=== PATIENT | female | born 1950 | race Caucasian/White ===

== ENCOUNTER 2017-03-30 10:04 | Emergency (ER) | payer MEDICARE, OTHER ==
[~2017-03-30] VITALS: Ht 157.5 cm; Wt 136.1 kg
[~2017-03-30 10:04] MED LIST: ALPR0.5T6 PO; ASCO-5 PO; BUDE10.2 IH; CALC-77 PO; CALC600T4 PO; CITA40TA5 PO; CYAN250T5 PO; CYCL10TA2 PO; DOCU100C28 PO; ERGO500027 PO; FURO-68 PO; FURO40TA4 PO; GABA800T2 PO; HYDR-2762 PO; HYDR1TAB26 PO; IPRA3AMP IH; LANS30CA PO; LEVO200T5 PO; LEVO25TA4 PO; LEVO500T59 PO; LEVO500T8 PO; LOSA100T6 PO; METF500T4 PO; METO100T11 PO; MULT-96 PO; OMEG1CAP6 PO; POTA20TA12 PO; POTA20TA4 PO; PRAM0.5T5 PO; PROAIR HFA8.5 GM IH; PROM118S2 PO; TEMA30CA PO; ZAFI20TA12 PO; ZEBUTAL; [UNRECOGNIZED DRUG - OTHER] PO; brintellix
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
[2017-03-30] MEDS ORDERED: HYDROcodone/APAP 5/325MG 1 TAB TABLET PO ONE (11:15)
[2017-03-30 11:40] VITALS: BP 130/61
--- NOTE | 2017-03-30 11:52 | RAD ---
Examination: 2 views of the right humerus and 2 views of the right clavicle History: History of trip over dog last night, pain in the right humerus. Comparison: None available Findings: The humerus head is within the glenoid. There is no evidence of fracture of the right clavicle. Mild degenerative changes identified in the acromioclavicular joint and glenohumeral joint. There is lateral bowing of the midshaft of the right humerus with probable old fracture. Impression: 1. Lateral bowing of the midshaft of the humerus probable old fracture.
== END 2017-03-30 12:18 | disposition home or self-care (01) ==
LOC: ER 10:04
DX: M79.621 Pain in right upper arm (principal); M25.511 Pain in right shoulder; E03.9 Hypothyroidism, unspecified; F41.9 Anxiety disorder, unspecified; I10 Essential (primary) hypertension; J45.909 Unspecified asthma, uncomplicated; Z90.710 Acquired absence of both cervix and uterus; Z98.890 Other specified postprocedural states; Z98.51 Tubal ligation status; G56.01 Carpal tunnel syndrome, right upper limb; Z88.1 Allergy status to other antibiotic agents; Z88.6 Allergy status to analgesic agent; Z91.041 Radiographic dye allergy status; W18.39XA Other fall on same level, initial encounter; Y93.89 Activity, other specified; Y99.8 Other external cause status; Y92.89 Other specified places as the place of occurrence of the external cause
CPT/HCPCS: 73000; 73060; 99284

== ENCOUNTER 2017-08-18 01:35 | Emergency (ER) | payer MEDICARE ==
[~2017-08-18] VITALS: Ht 154.9 cm; Wt 121.1 kg
[~2017-08-18 01:35] MED LIST changes: +METO-247 PO; -METO100T11 PO
--- NOTE | 2017-08-18 02:01 | PHYS DOC ---
Past Medical History Past Medical History: Anxiety, Asthma, Hypertension, Hypothyroid, UTI, Other Additional Past Medical Histor: WEARS CPAP @ NOC Past Surgical History: , Hysterectomy, Tubal ligation Additional Past Surgical Histo: wrist, knee scope, rt carpqal tunnel Alcohol Use: None Drug Use: None Adult General Chief Complaint Chief Complaint: BACK PAIN - NO INJURY HPI HPI Patient is a 67 year old female who presents with right-sided back pain and right knee pain. Her backs been hurting her for the last week. Today she took a [place]. She denies any fevers chills nausea or vomiting, or dysuria. She states she never has any dysuria and diagnosed with bladder infection before. The daughter's concern because his low confused today and he could be secondary to taking your [place] but one make sure she didn't have an infection because last time she get really sick with infection. She also complains about right knee pain and feels like her calf is a little more swollen than normal. She states the pain in the posterior aspect of her knee. She denies any fevers, shortness of breath, chest pain. Review of Systems Review of Systems Constitutional: Denies fever or chills [] Eyes: Denies change in visual acuity, redness, or eye pain [] HENT: Denies nasal congestion or sore throat [] Respiratory: Denies cough or shortness of breath [] Cardiovascular: No additional information not addressed in HPI [] GI: Denies abdominal pain, nausea, vomiting, bloody stools or diarrhea [] : Denies dysuria or hematuria [] Musculoskeletal: Positive for right-sided flank pain and right knee pain Integument: Denies rash or skin lesions [] Neurologic: Denies headache, focal weakness or sensory changes [] Endocrine: Denies polyuria or polydipsia [] All other systems were reviewed and found to be within normal limits, except as documented in this note. Current Medications Current Medications Current Medications Medications (Trade) Dose Ordered Sig/Doris Start Time Stop Time Status Last Admin Dose Admin Levofloxacin (Levaquin) 500 mg 1X ONCE 08/18/17 04:00 08/18/17 04:01 08/18/17 03:37 500 MG Morphine Sulfate 2 mg 1X ONCE 08/18/17 03:30 08/18/17 03:31 DC 08/18/17 03:38 2 MG Allergies Allergies Allergies Coded Allergies Type Severity Reaction Last Updated Verified amoxicillin trihydrate Allergy Intermediate 10/15/14 Yes celecoxib Allergy Intermediate 10/15/14 Yes potassium clavulanate Allergy Intermediate 10/15/14 Yes I S O L A T I O N *CONTACT* Allergy Unknown 02/11/15 Yes Physical Exam Physical Exam Constitutional: Well developed, well nourished, no acute distress, non-toxic appearance. [] HENT: Normocephalic, atraumatic, bilateral external ears normal, oropharynx moist, no oral exudates, nose normal. [] Eyes: PERRLA, EOMI, conjunctiva normal, no discharge. [] Neck: Normal range of motion, no tenderness, supple, no stridor. [] Cardiovascular:Heart rate regular rhythm, no murmur [] Lungs & Thorax: Bilateral breath sounds clear to auscultation [] Abdomen: Bowel sounds normal, soft, no tenderness, no masses, no pulsatile masses. [] Skin: Warm, dry, no erythema, no rash. [] Back: No midline tenderness, tender palpation over the right flank that seems more muscle spasm in nature, no CVA tenderness. [] Extremities: Mild tenderness palpation the posterior knee, no erythema, no fluctuance noted, no cyanosis, no clubbing, ROM intact, no edema. [] Neurologic: Alert and oriented X 3, normal motor function, normal sensory function, no focal deficits noted. [] Psychologic: Affect normal, judgement normal, mood normal. [] Current Patient Data Vital Signs Vital Signs Date Time Temp Pulse Resp B/P (MAP) Pulse Ox O2 Delivery O2 Flow Rate FiO2 08/18/17 01:40 99.3 95 22 113/53 (73) 95 Room Air 99.3 Lab Values Laboratory Tests Test 08/18/17 01:40 08/18/17 02:15 Urine Collection Type Unknown Urine Color Yellow Urine Clarity Clear Urine pH 5.5 Urine Specific [place] 1.015 Urine Protein Negative mg/dL (NEG-TRACE) Urine Glucose (UA) Negative mg/dL (NEG) Urine Ketones (Stick) Negative mg/dL (NEG) Urine Blood Negative (NEG) Urine Nitrite Negative (NEG) Urine Bilirubin Negative (NEG) Urine Urobilinogen Dipstick 0.2 mg/dL (0.2 mg/dL) Urine Leukocyte Esterase Moderate (NEG) Urine RBC 6-10 /HPF (0-2) Urine WBC 20-40 /HPF (0-4) Urine Squamous Epithelial Cells Few /LPF Urine Bacteria Many /HPF (0-FEW) Urine Hyaline Casts Many /HPF White Blood Count 11.8 x10^3/uL (4.0-11.0) H Red Blood Count 3.27 x10^6/uL (3.50-5.40) L Hemoglobin 9.9 g/dL (12.0-15.5) L Hematocrit 30.3 % (36.0-47.0) L Mean Corpuscular Volume 93 fL (79-100) Mean Corpuscular Hemoglobin 30 pg (25-35) Mean Corpuscular Hemoglobin Concent 33 g/dL (31-37) Red Cell Distribution Width 14.9 % (11.5-14.5) H Platelet Count 190 x10^3/uL (140-400) Neutrophils (%) (Auto) 78 % (31-73) H Lymphocytes (%) (Auto) 15 % (24-48) L Monocytes (%) (Auto) 5 % (0-9) Eosinophils (%) (Auto) 2 % (0-3) Basophils (%) (Auto) 0 % (0-3) Neutrophils # (Auto) 9.2 x10^3uL (1.8-7.7) H Lymphocytes # (Auto) 1.8 x10^3/uL (1.0-4.8) Monocytes # (Auto) 0.6 x10^3/uL (0.0-1.1) Eosinophils # (Auto) 0.2 x10^3/uL (0.0-0.7) Basophils # (Auto) 0.0 x10^3/uL (0.0-0.2) Sodium Level 138 mmol/L (136-145) Potassium Level 4.6 mmol/L (3.5-5.1) Chloride Level 103 mmol/L (98-107) Carbon Dioxide Level 28 mmol/L (21-32) Anion Gap 7 (6-14) Blood Urea Nitrogen 30 mg/dL (7-20) H Creatinine 1.5 mg/dL (0.6-1.0) H Estimated GFR (Cockcroft-Gault) 34.9 BUN/Creatinine Ratio 20 (6-20) Glucose Level 109 mg/dL (70-99) H Calcium Level 7.8 mg/dL (8.5-10.1) L Total Bilirubin 0.4 mg/dL (0.2-1.0) Aspartate Amino Transferase (AST) 26 U/L (15-37) Alanine Aminotransferase (ALT) 23 U/L (14-59) Alkaline Phosphatase 187 U/L (46-116) H Total Protein 6.9 g/dL (6.4-8.2) Albumin 3.1 g/dL (3.4-5.0) L Albumin/Globulin Ratio 0.8 (1.0-1.7) L Laboratory Tests 08/18/17 02:15 Laboratory Tests 08/18/17 02:15 EKG EKG [] Radiology/Procedures Radiology/Procedures [facility] [address] [place] [address] IMAGING REPORT Signed PATIENT: PILLO JEROME ACCOUNT: [id number] : 1950 LOCATION: ER AGE: 67 SEX: F EXAM STATUS: REG ER ORD. PHYSICIAN: MARJ HERNANDEZ MD REASON: swelling PROCEDURE: VENOUS LOWER EXTREMITY RIGHT INDICATION: Right leg swelling and pain COMPARISON: None. TECHNIQUE: Grayscale, color and doppler ultrasound images were obtained of the right lower extremity venous vasculature. RIGHT: No thrombus identified in the common femoral vein, femoral vein, popliteal vein. Calf veins are difficult to visualize secondary to overlying soft tissue structures. 44 x 21 mm fluid collection in popliteal fossa. IMPRESSION: 1. No thrombus identified in deep venous system of right lower extremity. 2. Suspected fluid collection in popliteal fossa. Most common cause would be a Aquino's cyst. Would correlate with symptoms in the region to ensure that there is not a less common causes such as fluid collection from infection or hematoma. Electronically signed by: Luis Hastings MD (08/18/2017 3:20 AM) [facility] DICTATED and SIGNED BY: LUIS HASTINGS MD DATE: 08/18/17 0319 CC: MARJ HERNANDEZ MD; EVERTON BLAKE MD ~ Impressions: Urinary tract infection Right knee pain Course & Med Decision Making Course & Med Decision Making Pertinent Labs and Imaging studies reviewed. (See chart for details) UA shows a UTI. Since she does have right-sided flank pain we'll treat for possible with 7 days of Levaquin. She has an allergy to amoxicillin. Ultrasound of right lower extremity does not show a DVT what looks like she might have a Aquino's cyst. She'll be discharged home with tramadol for discomfort. She is instructed to follow-up with her primary care physician within the next 2-3 days. Return precautions given for fevers, confusion, uncontrolled nausea vomiting or other concerns. Family is agreeable plan she's been discharged stable condition at this time. Dragon Disclaimer Dragon Disclaimer This electronic medical record was generated, in whole or in part, using a voice recognition dictation system. Departure Departure Impression: Primary Impression: Urinary tract infection Disposition: HOME, SELF-CARE Condition: STABLE Referrals: EVERTON BLAKE MD (PCP) Patient Instructions: Urinary Tract Infection Additional Instructions: You have a urinary tract infection and will need taken an antibiotic for the next 7 days. You will also need drink a few extra glasses of water over the next several days. The x-ray of your right knee shows arthritis and the ultrasound does not show any blood clots. You also has a fluid collection behind your right knee which could be a Aquino's cyst. You will need to follow- up with your primary care physician. You can take tramadol, which is a pain medicine for the next few days until your symptoms improve. Return the ER if you become confused, develop high fevers, uncontrolled nausea vomiting or other concerns. Scripts Tramadol Hcl (TRAMADOL HCL) 50 Mg Tablet 1 TAB PO PRN Q6HRS Y for PAIN, #15 TAB Prov: MARJ HERNANDEZ MD 08/18/17 Levofloxacin (LEVAQUIN) 500 Mg Tablet 500 TAB PO DAILY, #7 TAB Prov: MARJ HERNANDEZ MD 08/18/17 MARJ HERNANDEZ MD Aug 18, 2017 02:01
[2017-08-18 02:35] LABS: BILIRUBIN,URINE NEGATIVE (NEG); GLUCOSE,URINE NEGATIVE (NEG); NITRITE,URINE NEGATIVE (NEG); PH,URINE 5.5; PROTEIN,URINE NEGATIVE (NEG-TRACE); UROBILINOGEN,URINE 0.2 mg/dL (0.2 mg/dL)
[2017-08-18 02:36] LABS: BASO % 0 % (0-3); EOS % 2 % (0-3); HEMATOCRIT 30.3 % (36.0-47.0); HEMOGLOBIN 9.9 g/dL (12.0-15.5); LYMPH # 1.8 x10^3/uL (1.0-4.8); LYMPH % 15 % (24-48); MEAN CORPUSCULAR HEMOGLOBIN 30 pg (25-35); MEAN CORPUSCULAR HGB CONC 33 g/dL (31-37); MEAN CORPUSCULAR VOLUME 93 fL (79-100); MONO % 5 % (0-9); NEUT % 78 % (31-73); PLATELET COUNT 190 x10^3/uL (140-400); RED BLOOD COUNT 3.27 x10^6/uL (3.50-5.40); RED CELL DISTRIBUTION WIDTH 14.9 % (11.5-14.5); WHITE BLOOD COUNT 11.8 x10^3/uL (4.0-11.0)
[2017-08-18 02:44] LABS: CALCIUM 7.8 mg/dL (8.5-10.1); CREATININE 1.5 mg/dL (0.6-1.0); GFR 34.9; POTASSIUM 4.6 mmol/L (3.5-5.1)
[2017-08-18 02:48] LABS: BACTERIA,URINE MANY /HPF (0-FEW); SQUAMOUS EPITHELIAL CELL,UR FEW /LPF; WBC,URINE 20-40 /HPF (0-4)
[2017-08-18 02:51] LABS: ALBUMIN 3.1 g/dL (3.4-5.0); ALBUMIN/GLOBULIN RATIO 0.8 (1.0-1.7); TOTAL BILIRUBIN 0.4 mg/dL (0.2-1.0); TOTAL PROTEIN 6.9 g/dL (6.4-8.2)
--- NOTE | 2017-08-18 03:24 | RAD ---
INDICATION: Right leg swelling and pain COMPARISON: None. TECHNIQUE: Grayscale, color and doppler ultrasound images were obtained of the right lower extremity venous vasculature. RIGHT: No thrombus identified in the common femoral vein, femoral vein, popliteal vein. Calf veins are difficult to visualize secondary to overlying soft tissue structures. 44 x 21 mm fluid collection in popliteal fossa. IMPRESSION: 1. No thrombus identified in deep venous system of right lower extremity. 2. Suspected fluid collection in popliteal fossa. Most common cause would be a Aquino's cyst. Would correlate with symptoms in the region to ensure that there is not a less common causes such as fluid collection from infection or hematoma. Electronically signed by: Cedric Bell MD (08/18/2017 3:20 AM) [facility]
[2017-08-18] MEDS ORDERED: MORPHINE SULFATE 2 MG/ML DISP.SYRIN. IV ONE (03:30)
[2017-08-18 03:36] VITALS: BP 103/45
[2017-08-18] MEDS ORDERED: TRAM50TA PO (03:39)
[2017-08-18] MEDS ORDERED: LEVO500T59 PO (03:39)
--- NOTE | 2017-08-18 07:30 | RAD ---
KNEE RIGHT 3V History:Knee pain Comparison: None Findings:3 views the right knee are submitted. There is tricompartmental osteoarthritic change, severe narrowing of the lateral compartment joint space and also patellofemoral articulation. There is is chondrocalcinosis. No acute fracture is identified. There is some vertically oriented lucency of the medial femoral condyle which could be due to sequela of old trauma. There is probable small moderate suprapatellar joint effusion. Impression: 1.There is tricompartmental osteoarthritic change. There is suprapatellar joint effusion. There is chondrocalcinosis.
--- NOTE | 2017-08-21 16:03 | VNOTE ---
CALL BACK NOTE CALL BACK Microbiology 08/18/17 Urine Culture - Final, Complete 08/18/17 Urine Culture Result 1 (TAMIE) - Final, Complete 08/18/17 Antimicrobic Susceptibility - Final, Complete Urine culture reveals since Levaquin. Patient was notified on August 21. She is requested her prescription for Macrobid 100 mg one by mouth twice a day #20 be called to [facility] at [facility]. Patient has agreed to pick this prescription up. OLIVER CORONADO APRN Aug 21, 2017 16:03
== END 2017-08-18 03:55 | disposition home or self-care (01) ==
LOC: ER 01:35
DX: N39.0 Urinary tract infection, site not specified (principal); M25.561 Pain in right knee; E03.9 Hypothyroidism, unspecified; F41.9 Anxiety disorder, unspecified; I10 Essential (primary) hypertension; J45.909 Unspecified asthma, uncomplicated; Z98.890 Other specified postprocedural states; Z90.710 Acquired absence of both cervix and uterus; Z98.51 Tubal ligation status; Z88.8 Allergy status to other drugs, medicaments and biological substances; Z88.1 Allergy status to other antibiotic agents; Z91.041 Radiographic dye allergy status
CPT/HCPCS: 36415; 73562; 80053; 81001; 85025; 87086; 87186; 93971; 96372; 99285; J2270

== ENCOUNTER 2018-01-02 01:25 | Emergency (ER) | payer MEDICARE | END 2018-01-02 03:53 | disposition home or self-care (01) | LOC: ER 01:25 | DX: M71.21 Synovial cyst of popliteal space [Baker], right knee (principal); J45.909 Unspecified asthma, uncomplicated; I10 Essential (primary) hypertension; E03.9 Hypothyroidism, unspecified; Z90.710 Acquired absence of both cervix and uterus; Z98.51 Tubal ligation status; Z88.1 Allergy status to other antibiotic agents; Z88.8 Allergy status to other drugs, medicaments and biological substances; Z91.041 Radiographic dye allergy status | CPT/HCPCS: 73562; 93971; 99284-25 ==

== ENCOUNTER 2018-03-20 09:00 | Inpatient (IN) | payer MEDICARE ==
[2018-03-20] MEDS: IPRATRPIUM/ALBUTEROL 0.5/2.5MG 3 ML NEBU. NEB ×3 (09:31→19:57)
[2018-03-20 10:23] LABS: ADD MAN DIFF? NO
[2018-03-20 10:26] LABS: BASO # 0.1 x10^3/uL (0.0-0.2); BASO % 1 % (0-3); EOS # 0.1 x10^3/uL (0.0-0.7); EOS % 1 % (0-3); HEMATOCRIT 31.6 % (36.0-47.0); HEMOGLOBIN 10.4 g/dL (12.0-15.5); LYMPH # 1.9 x10^3/uL (1.0-4.8); LYMPH % 19 % (24-48); MEAN CORPUSCULAR HEMOGLOBIN 30 pg (25-35); MEAN CORPUSCULAR HGB CONC 33 g/dL (31-37); MEAN CORPUSCULAR VOLUME 92 fL (79-100); MONO # 0.7 x10^3/uL (0.0-1.1); MONO % 7 % (0-9); NEUT # 7.2 x10^3uL (1.8-7.7); NEUT % 72 % (31-73); PLATELET COUNT 187 x10^3/uL (140-400); RED BLOOD COUNT 3.44 x10^6/uL (3.50-5.40); RED CELL DISTRIBUTION WIDTH 14.3 % (11.5-14.5)
[2018-03-20 10:27] LABS: BILIRUBIN,URINE NEGATIVE (NEG); CLARITY,URINE CLEAR; COLOR,URINE YELLOW; GLUCOSE,URINE NEGATIVE (NEG); NITRITE,URINE POSITIVE (NEG); PH,URINE 5.5; PROTEIN,URINE NEGATIVE (NEG-TRACE); UROBILINOGEN,URINE 0.2 mg/dL (0.2 mg/dL)
[2018-03-20 10:32] LABS: BACTERIA,URINE MANY /HPF (0-FEW); SQUAMOUS EPITHELIAL CELL,UR MANY /LPF; WBC,URINE >40 /HPF (0-4)
[2018-03-20 10:33] LABS: RBC,URINE OCC /HPF (0-2)
[2018-03-20 10:34] LABS: INR 1.2 (0.8-1.1); PROTHROMBIN TIME PATIENT 14.6 SEC (11.7-14.0)
[2018-03-20] MEDS: fentaNYL PF VIAL 100 MCG/2 ML VIAL IV (10:34)
[2018-03-20] MEDS: methylPREDNISolone SOD SUCC PF 125 MG/2 ML VIAL. IV ×2 (10:35→20:43)
[2018-03-20] MEDS: ONDANSETRON PF 4 MG/2 ML VIAL. IV (10:35)
[2018-03-20 10:36] LABS: ANION GAP 11 (6-14); BLOOD UREA NITROGEN 29 mg/dL (7-20); BUN/CREATININE RATIO 22 (6-20); CALCIUM 8.3 mg/dL (8.5-10.1); CARBON DIOXIDE 27 mmol/L (21-32); CHLORIDE 102 mmol/L (98-107); CREATININE 1.3 mg/dL (0.6-1.0); GFR 41.1; GLUCOSE 116 mg/dL (70-99); POTASSIUM 3.7 mmol/L (3.5-5.1); SODIUM 140 mmol/L (136-145)
[2018-03-20 10:42] LABS: ALBUMIN 2.7 g/dL (3.4-5.0); ALBUMIN/GLOBULIN RATIO 0.6 (1.0-1.7); ALK PHOS 229 U/L (46-116); ALT (SGPT) 25 U/L (14-59); AST (SGOT) 28 U/L (15-37); TOTAL BILIRUBIN 0.7 mg/dL (0.2-1.0); TOTAL PROTEIN 7.6 g/dL (6.4-8.2)
[2018-03-20 10:55] LABS: CREATINE KINASE 25 U/L (26-192)
[2018-03-20 10:55] LABS: NT-PRO BNP 291 pg/mL (0-124)
[2018-03-20 10:56] LABS: CKMB MASS < 0.5 ng/mL (0.0-3.6)
[2018-03-20] MEDS ORDERED: fentaNYL PF VIAL 100 MCG/2 ML VIAL IV (11:15)
[2018-03-20] MEDS ORDERED: ACETAMINOPHEN 325 MG TABLET. PO (11:15)
[2018-03-20] MEDS ORDERED: levETIRAcetam 500 MG TABLET PO (11:15)
[2018-03-20] MEDS ORDERED: ONDANSETRON PF 4 MG/2 ML VIAL. IV (11:15)
[2018-03-20] MEDS ORDERED: ALBUTEROL SULFATE 2.5 MG/3 ML NEBU. NEB (16:15)
[2018-03-20] MEDS ORDERED: ALBUTEROL SULFATE IH (17:15)
[2018-03-20 18:16] LABS: TROPONINI < 0.017 ng/mL (0.000-0.055)
[2018-03-20] MEDS: ERGOCALCIFEROL (VITAMIN D2) 50,000 UNIT CAPSULE. PO (18:16)
[2018-03-20] MEDS: OMEGA-3 FATTY ACIDS/FISH OIL 1,000 MG CAPSULE. PO (18:16)
[2018-03-20] MEDS: FUROSEMIDE 40 MG TABLET. PO (18:16)
[2018-03-20] MEDS: METOPROLOL SUCC 24HR ER 100 MG TAB.ER.24H. PO (18:17)
[2018-03-20] MEDS: HYDROcodone/APAP 7.5/325MG 1 TAB TABLET PO (18:17)
[2018-03-20] MEDS ORDERED: IPRATRPIUM/ALBUTEROL 0.5/2.5MG 3 ML NEBU. IH (20:00)
[2018-03-20] MEDS: BUDESONIDE 0.5 MG/2 ML NEBU. NEB (20:00)
[2018-03-20] MEDS: CYANOCOBALAMIN (VITAMIN B-12) 1,000 MCG TABLET. PO (20:38)
[2018-03-20] MEDS: PRAMIPEXOLE 1 MG TABLET. PO (20:41)
[2018-03-20] MEDS: GABAPENTIN 400 MG CAPSULE. PO (20:41)
[2018-03-20] MEDS: ENOXAPARIN 40 MG/0.4 ML SYRINGE. SQ (20:42)
[2018-03-20] MEDS ORDERED: NON FORMULARY ITEM (Budesonide/Formoterol Fumarate (Symbicort 160-4.5 Mcg Inhaler) 2 PUFF) IH (21:00)
[2018-03-20] MEDS: ALPRAZolam 0.5 MG TABLET PO (23:49)
[2018-03-21 04:21] LABS: BASO % 0 % (0-3); EOS % 0 % (0-3); HEMATOCRIT 29.3 % (36.0-47.0); HEMOGLOBIN 9.6 g/dL (12.0-15.5); LYMPH # 0.8 x10^3/uL (1.0-4.8); LYMPH % 9 % (24-48); MEAN CORPUSCULAR HEMOGLOBIN 30 pg (25-35); MEAN CORPUSCULAR HGB CONC 33 g/dL (31-37); MEAN CORPUSCULAR VOLUME 92 fL (79-100); MONO # 0.2 x10^3/uL (0.0-1.1); MONO % 3 % (0-9); NEUT # 8.8 x10^3uL (1.8-7.7); NEUT % 89 % (31-73); PLATELET COUNT 152 x10^3/uL (140-400); RED BLOOD COUNT 3.18 x10^6/uL (3.50-5.40); RED CELL DISTRIBUTION WIDTH 13.8 % (11.5-14.5); WHITE BLOOD COUNT 9.9 x10^3/uL (4.0-11.0)
[2018-03-21 04:23] LABS: ADD MAN DIFF? YES
[2018-03-21 04:44] LABS: ALBUMIN 2.5 g/dL (3.4-5.0); ALBUMIN/GLOBULIN RATIO 0.5 (1.0-1.7); ALK PHOS 195 U/L (46-116); ALT (SGPT) 25 U/L (14-59); ANION GAP 9 (6-14); AST (SGOT) 21 U/L (15-37); BLOOD UREA NITROGEN 27 mg/dL (7-20); BUN/CREATININE RATIO 21 (6-20); CALCIUM 8.3 mg/dL (8.5-10.1); CARBON DIOXIDE 26 mmol/L (21-32); CHLORIDE 103 mmol/L (98-107); CREATININE 1.3 mg/dL (0.6-1.0); GFR 41.1; GLUCOSE 189 mg/dL (70-99); POTASSIUM 4.2 mmol/L (3.5-5.1); SODIUM 138 mmol/L (136-145); TOTAL BILIRUBIN 0.4 mg/dL (0.2-1.0); TOTAL PROTEIN 7.2 g/dL (6.4-8.2)
[2018-03-21 05:18] LABS: % BANDS 3 % (0-9); % LYMPHS 9 % (24-48); % MONOS 1 % (0-10); % SEGS 87 % (35-66)
[2018-03-21 05:19] LABS: PLT ESTIMATE ADEQUATE (ADEQUATE)
[2018-03-21] MEDS: LEVOTHYROXINE 100 MCG TABLET PO (06:32)
[2018-03-21] MEDS: HYDROcodone/APAP 7.5/325MG 1 TAB TABLET PO (06:36)
[2018-03-21] MEDS: IPRATRPIUM/ALBUTEROL 0.5/2.5MG 3 ML NEBU. NEB ×3 (07:15→15:38)
[2018-03-21] MEDS: BUDESONIDE 0.5 MG/2 ML NEBU. NEB (07:15)
[2018-03-21] MEDS: ENOXAPARIN 40 MG/0.4 ML SYRINGE. SQ (08:35)
[2018-03-21] MEDS: LOSARTAN POTASSIUM 50 MG TABLET. PO (08:36)
[2018-03-21] MEDS: CITALOPRAM 20 MG TABLET. PO (08:36)
[2018-03-21] MEDS: MULTIVITAMIN with MINERAL TABLET. PO (08:36)
[2018-03-21] MEDS: CYANOCOBALAMIN (VITAMIN B-12) 1,000 MCG TABLET. PO (08:36)
[2018-03-21] MEDS: POTASSIUM CHLORIDE 20 MEQ TABLET.ER. PO (08:36)
[2018-03-21] MEDS: ASCORBIC ACID 500 MG TABLET PO (08:37)
[2018-03-21] MEDS: DOCUSATE SODIUM 100 MG CAPSULE. PO (08:37)
[2018-03-21] MEDS: METOPROLOL SUCC 24HR ER 100 MG TAB.ER.24H. PO (08:37)
[2018-03-21] MEDS: CALCIUM CARB/VIT D3 500/200 TABLET. PO ×2 (08:37→09:00)
[2018-03-21] MEDS: OMEGA-3 FATTY ACIDS/FISH OIL 1,000 MG CAPSULE. PO (08:37)
[2018-03-21] MEDS: FUROSEMIDE 40 MG TABLET. PO (08:37)
[2018-03-21] MEDS: GABAPENTIN 400 MG CAPSULE. PO ×2 (08:38→15:32)
[2018-03-21] MEDS: metFORMIN 500 MG TABLET PO (08:38)
[2018-03-21] MEDS: methylPREDNISolone SOD SUCC PF 125 MG/2 ML VIAL. IV (08:38)
[2018-03-21] MEDS ORDERED: NON FORMULARY ITEM (Levothyroxine Sodium 1 TAB) PO (09:00)
[2018-03-21] MEDS: ALPRAZolam 0.5 MG TABLET PO (10:07)
[2018-03-21] MEDS: cefTRIAXone IV Push 1 GM VIAL. IVP (12:46)
[2018-03-21 22:15] LABS: MRSA BY PCR Positive (Negative)
== END 2018-03-21 16:00 | disposition home or self-care (01) | DRG 202 ==
LOC: ER 09:00 → 5 SOUTH 11:14
DX: J45.901 Unspecified asthma with (acute) exacerbation (principal); N39.0 Urinary tract infection, site not specified; Z68.42 Body mass index [BMI] 45.0-49.9, adult; F41.9 Anxiety disorder, unspecified; I10 Essential (primary) hypertension; E03.9 Hypothyroidism, unspecified; E66.01 Morbid (severe) obesity due to excess calories; G47.33 Obstructive sleep apnea (adult) (pediatric); Z90.710 Acquired absence of both cervix and uterus; Z88.0 Allergy status to penicillin; Z88.8 Allergy status to other drugs, medicaments and biological substances; Z91.041 Radiographic dye allergy status; Z82.49 Family history of ischemic heart disease and other diseases of the circulatory system
CPT/HCPCS: 36415; 71045; 80053; 81001; 82553; 83880; 84484; 85007; 85025; 85610; 87641; 93005; 94640; 94760; 96365; 96375; 99285; 99285-25; J0690; J0696; J1650; J2405; J2930; J3010; J7620; J7626

== ENCOUNTER 2019-01-12 22:47 | Inpatient (IN) | payer MEDICARE ==
[~2019-01-12] VITALS: Ht 157.5 cm; Wt 131.3 kg
[~2019-01-12 22:47] MED LIST changes: +ALBU2.5V8 IH; +CEPH-264 PO; -GABA800T2 PO; +GABA800T5 PO; -HYDR-2762 PO; +HYDR-2765 PO; -IPRA3AMP IH; +IPRA3AMP29 IH; +LACT1CAP6 PO; +LEVO100T5 PO; +LOSA100T14 PO; -LOSA100T6 PO; +METF500T16 PO; -METF500T4 PO; +OMEP40CA5 PO; -PROAIR HFA8.5 GM IH; -PROM118S2 PO; +PROM118S5 PO; +TRAM50TA PO
[2019-01-13] MEDS ORDERED: IV NORMAL SALINE 1000ML BAG 1,000 ML IV ONE ×2 (00:30)
[2019-01-13 00:40] LABS: BASO # 0.1 x10^3/uL (0.0-0.2); BASO % 1 % (0-3); EOS # 0.2 x10^3/uL (0.0-0.7); EOS % 2 % (0-3); HEMATOCRIT 29.3 % (36.0-47.0); HEMOGLOBIN 9.1 g/dL (12.0-15.5); LYMPH # 1.9 x10^3/uL (1.0-4.8); LYMPH % 23 % (24-48); MEAN CORPUSCULAR HEMOGLOBIN 29 pg (25-35); MEAN CORPUSCULAR HGB CONC 31 g/dL (31-37); MEAN CORPUSCULAR VOLUME 92 fL (79-100); MONO # 0.4 x10^3/uL (0.0-1.1); MONO % 5 % (0-9); NEUT # 5.7 x10^3uL (1.8-7.7); NEUT % 69 % (31-73); PLATELET COUNT 151 x10^3/uL (140-400); RED BLOOD COUNT 3.19 x10^6/uL (3.50-5.40); RED CELL DISTRIBUTION WIDTH 15.9 % (11.5-14.5); WHITE BLOOD COUNT 8.3 x10^3/uL (4.0-11.0)
[2019-01-13 00:48] LABS: PROTHROMBIN TIME PATIENT 13.8 SEC (11.7-14.0)
[2019-01-13 00:50] LABS: CALCIUM 8.8 mg/dL (8.5-10.1); CREATININE 4.5 mg/dL (0.6-1.0); GFR 9.8
[2019-01-13 00:56] LABS: ALBUMIN 3.3 g/dL (3.4-5.0); ALBUMIN/GLOBULIN RATIO 0.8 (1.0-1.7); TOTAL BILIRUBIN 0.1 mg/dL (0.2-1.0); TOTAL PROTEIN 7.5 g/dL (6.4-8.2)
[2019-01-13] MEDS ORDERED: VANCOMYCIN 2 GM in IV NORMAL SALINE 500ML BAG 500 ML IV ONE (01:00)
[2019-01-13] MEDS: IV NORMAL SALINE 1000ML BAG 1,000 ML IV SCH ×5 (01:00→21:16)
[2019-01-13] MEDS ORDERED: ERTAPENEM 1GM IVPB (GENERIC) 50 ML IV ONE (01:00)
--- NOTE | 2019-01-13 01:14 | PHYS DOC ---
Past Medical History Past Medical History: Anxiety, Asthma, Hypertension, Hypothyroid, UTI, Other Additional Past Medical Histor: WEARS CPAP @ NOC Past Surgical History: , Hysterectomy, Tubal ligation Additional Past Surgical Histo: wrist, knee scope, rt carpqal tunnel Alcohol Use: None Drug Use: None Adult General Chief Complaint Chief Complaint: WEAKNESS/GENERALIZED HPI HPI Patient is a 68 year old female who presents with generalized weakness, fatigue and forgetfulness for the last two days. She reports a fever of 99F. She has been hypotensive and is 81/50 during examination in the ER. Her daughter reports that she begins conversation but stops and forgets what she was talking about during the conversation. Her daughter reports increased agitation just not acting like herself She reports a history of UTI with sepsis as well as cellulitis of the R-leg one year ago. She denies vomiting and diarrhea. She denies dysuria, but reports an odor. She denies CP, SOB. she has had a bit of a cough Review of Systems Review of Systems Constitutional: Reports fever, denies chills [] Eyes: Denies change in visual acuity, redness, or eye pain [] HENT: Denies nasal congestion or sore throat [] Respiratory: D Cardiovascular: No additional information not addressed in HPI [] GI: Denies abdominal pain, loody stools or diarrhea [] : Denies dysuria, reports odor to urine. Denies hematuria [] Musculoskeletal: Denies back pain or joint pain [] Integument: Reports hx of cellulitis of R-leg. Denies rash or skin lesions [] Neurologic: Denies headache, focal weakness or sensory changes [] Endocrine: Denies polyuria or polydipsia [] All other systems were reviewed and found to be within normal limits, except as documented in this note. Current Medications Current Medications Current Medications Medications (Trade) Dose Ordered Sig/Doris Start Time Stop Time Status Last Admin Dose Admin Ertapenem 50 ml @ 100 mls/hr 1X ONCE 01/13/19 01:00 01/13/19 01:29 DC 01/13/19 01:11 100 MLS/HR Sodium Chloride 1,000 ml @ 1,380 mls/hr Q44M 01/13/19 01:00 01/13/19 01:59 DC Vancomycin HCl (Vanco Per Pharmacy) 1 each PRN DAILY PRN 01/13/19 01:00 01/13/19 02:51 1 EACH Vancomycin HCl 2 gm/Sodium Chloride 500 ml @ 250 mls/hr 1X ONCE 01/13/19 01:00 01/13/19 02:59 DC 01/13/19 01:11 250 MLS/HR see med list Allergies Allergies Allergies Coded Allergies Type Severity Reaction Last Updated Verified amoxicillin trihydrate Allergy Intermediate 03/20/18 Yes celecoxib Allergy Intermediate 10/15/14 Yes potassium clavulanate Allergy Intermediate 10/15/14 Yes I S O L A T I O N *CONTACT* Allergy Unknown 02/11/15 Yes Reports nausea, diarrhea and rash with amoxicillin Physical Exam Physical Exam Constitutional: Well developed, well nourished, no acute distress, non-toxic appearance. [] HENT: Normocephalic, atraumatic, bilateral external ears normal, oropharynx moist, no oral exudates, nose normal. [] Eyes: PERRLA, EOMI, conjunctiva normal, no discharge. [] Neck: Normal range of motion, no tenderness, supple, no stridor. [] Cardiovascular:Heart rate regular rhythm, 3/6 murmur L-upper sternal border [] Lungs & Thorax: Diminished b/l breath sounds lung bases [] Abdomen: Bowel sounds normal, soft, no tenderness, no masses, no pulsatile masses. [] Skin: Anterior R-lower extremity florez warm to touch with associated erythema. Non-tender to palpation. [] Back: No tenderness, no CVA tenderness. [] Extremities: No tenderness, no cyanosis, no clubbing, ROM intact, b/l LE edema 3/4 non-pitting. [] Neurologic: Alert and oriented X 3, normal motor function, normal sensory function, no focal deficits noted. [] Psychologic: Affect normal, judgement normal, mood normal. [] Current Patient Data Vital Signs Vital Signs Date Time Temp Pulse Resp B/P (MAP) Pulse Ox O2 Delivery O2 Flow Rate FiO2 01/13/19 01:12 66 35 01/13/19 01:07 97 01/12/19 22:55 98.1 100/40 (60) Room Air 98.1 Lab Values Laboratory Tests Test 01/13/19 00:20 01/13/19 01:06 01/13/19 02:11 White Blood Count 8.3 x10^3/uL (4.0-11.0) Red Blood Count 3.19 x10^6/uL (3.50-5.40) L Hemoglobin 9.1 g/dL (12.0-15.5) L Hematocrit 29.3 % (36.0-47.0) L Mean Corpuscular Volume 92 fL (79-100) Mean Corpuscular Hemoglobin 29 pg (25-35) Mean Corpuscular Hemoglobin Concent 31 g/dL (31-37) Red Cell Distribution Width 15.9 % (11.5-14.5) H Platelet Count 151 x10^3/uL (140-400) Neutrophils (%) (Auto) 69 % (31-73) Lymphocytes (%) (Auto) 23 % (24-48) L Monocytes (%) (Auto) 5 % (0-9) Eosinophils (%) (Auto) 2 % (0-3) Basophils (%) (Auto) 1 % (0-3) Neutrophils # (Auto) 5.7 x10^3uL (1.8-7.7) Lymphocytes # (Auto) 1.9 x10^3/uL (1.0-4.8) Monocytes # (Auto) 0.4 x10^3/uL (0.0-1.1) Eosinophils # (Auto) 0.2 x10^3/uL (0.0-0.7) Basophils # (Auto) 0.1 x10^3/uL (0.0-0.2) Prothrombin Time 13.8 SEC (11.7-14.0) Prothrombin Time INR 1.1 (0.8-1.1) Sodium Level 139 mmol/L (136-145) Potassium Level 5.0 mmol/L (3.5-5.1) Chloride Level 105 mmol/L (98-107) Carbon Dioxide Level 21 mmol/L (21-32) Anion Gap 13 (6-14) Blood Urea Nitrogen 64 mg/dL (7-20) H Creatinine 4.5 mg/dL (0.6-1.0) H Estimated GFR (Cockcroft-Gault) 9.8 BUN/Creatinine Ratio 14 (6-20) Glucose Level 105 mg/dL (70-99) H Calcium Level 8.8 mg/dL (8.5-10.1) Total Bilirubin 0.1 mg/dL (0.2-1.0) L Aspartate Amino Transferase (AST) 16 U/L (15-37) Alanine Aminotransferase (ALT) 17 U/L (14-59) Alkaline Phosphatase 149 U/L (46-116) H Troponin I Quantitative 0.017 ng/mL (0.000-0.055) ER-Ltk-E-Type Natriuretic Peptide 860 pg/mL (0-124) H Total Protein 7.5 g/dL (6.4-8.2) Albumin 3.3 g/dL (3.4-5.0) L Albumin/Globulin Ratio 0.8 (1.0-1.7) L Procalcitonin 0.15 ng/mL (0.00-0.10) H Lactic Acid Level 0.6 mmol/L (0.4-2.0) Urine Collection Type Unknown Urine Color Yellow Urine Clarity Clear Urine pH 5.0 Urine Specific Bicknell 1.015 Urine Protein Negative mg/dL (NEG-TRACE) Urine Glucose (UA) Negative mg/dL (NEG) Urine Ketones (Stick) Negative mg/dL (NEG) Urine Blood Negative (NEG) Urine Nitrite Negative (NEG) Urine Bilirubin Negative (NEG) Urine Urobilinogen Dipstick 0.2 mg/dL (0.2 mg/dL) Urine Leukocyte Esterase Negative (NEG) Urine RBC Occ /HPF (0-2) Urine WBC Occ /HPF (0-4) Urine Squamous Epithelial Cells Few /LPF Urine Amorphous Sediment Present /HPF Urine Bacteria 0 /HPF (0-FEW) Urine Hyaline Casts Many /HPF Laboratory Tests 01/13/19 00:20 Laboratory Tests 01/13/19 00:20 EKG EKG [] Interpretation Time: +nsr rate 65 no acute ischemic changes noted no stemi Radiology/Procedures Radiology/Procedures [] Impressions: cxr possible rul atelect v. infiltrate my read, awaiting final read. Course & Med Decision Making Course & Med Decision Making Pertinent Labs and Imaging studies reviewed. (See chart for details) Patient presents with hypotension, generalized weakness, fatigue and altered mentation for last two days. Given history and per pt's report, suspicious for uti v. cellulitis of right anterior LE. Will collect UA, blood cultures, labs and begin ertapenem and vancomycin based on previous urine culture sensitivities. 68 yo f hx hypertension, hypothryoidism, frequent sepsis in the past p/w hypotension, renal failure cr 4.5 baseline normal. no definite source of infection in er, lactic normal, bp improved with fluids, up to low 100's as of3 am. gave IBW fluids due to obesity elev bmi. u/a not c/w uti. abd nontender. cxr possible vague pna, given abx in case of this. possible source rle cellulitis but doesnt look very acute, gave vanco admit to [facility] consult nephrology [] Dragon Disclaimer Dragon Disclaimer This electronic medical record was generated, in whole or in part, using a voice recognition dictation system. Departure Departure Impression: Primary Impression: Acute renal failure Disposition: ADMITTED INPATIENT Admitting Physician: Adeline Garcia Condition: STABLE Referrals: MILENA LITTLE (PCP) NEERAJ RUFF MD Jan 13, 2019 01:14
[2019-01-13 02:18] LABS: BILIRUBIN,URINE NEGATIVE (NEG); CLARITY,URINE CLEAR; COLOR,URINE YELLOW; NITRITE,URINE NEGATIVE (NEG); PROTEIN,URINE NEGATIVE (NEG-TRACE); UROBILINOGEN,URINE 0.2 mg/dL (0.2 mg/dL)
[2019-01-13 02:27] LABS: BACTERIA,URINE 0 /HPF (0-FEW); RBC,URINE OCC /HPF (0-2); SQUAMOUS EPITHELIAL CELL,UR FEW /LPF; WBC,URINE OCC /HPF (0-4)
[2019-01-13 02:28] LABS: AMORPHOUS SEDIMENT,UR PRESENT /HPF; HYALINE CASTS, URINE MANY /HPF
[2019-01-13] MEDS: VANCOMYCIN PER PHARMACY MC PRN ×2 (02:37→02:51)
--- NOTE | 2019-01-13 02:44 | NUR ---
Pharmacy Vancomycin Dosing Note S:Consulted to monitor and dose vancomycin started 01/13/19. O:PILLO JEROME is a 68 year old F with Cellulitis SUSPECT UTI W/SEPSIS TO BE ASSESED FOR PNA. Height: 5 feet, 0 inches Weight: 113.524739 kg Ozan Body Weight: 45.50 Adjusted Body Weight: 72.66 Dosing Weight: Actual Other Antibiotics: LABS: Last BUN: 64 Last Creatinine: 4.5 Creatinine Clearance: 14 mL/min Last WBC: 8.3 Last Procalcitonin: 0.15 Tmax (past 24 hours): Microbiology: I/O: Drug Levels: Last level: on at Last dose given at Vancomycin Dosing: Loading Dose: Dosing Weight: Actual Target Trough: 15-20 A: Based on: Actual Wt and CrCl P: 1. 01/13/19 0111 Vancomycin 2000 mg IV One Time 2. Follow up Random level on 01/15/19 at 0500 3. Pharmacy will continue to monitor, follow and adjust therapy as needed. [facility], 01/13/19 0244 Signed: 01/13/19 at 0248 by [facility] PHA
[2019-01-13 04:15] VITALS: BP 125/83
--- NOTE | 2019-01-13 06:38 | EKG ---
[facility] [address] [place] [address] Test Date: 2019-01-13 Test Time: 00:37:24 Pat Name: PILLO JEROME Department: Room: 204 1 Gender: F Hygiene Coordinator: : 1950 Requested By: NEERAJ RUFF Order Number: [id number] Reading MD: Martin Dickson Measurements Intervals Gardner Rate: 65 P: 45 PA: 256 QRS: 33 QRSD: 78 T: 45 QT: 394 QTc: 410 Interpretive Statements SINUS RHYTHM PROLONGED PA INTERVAL ABNORMAL ECG RI6.01 Compared to ECG 03/20/2018 09:46:35 First degree AV block now present Electronically Signed On 01-19-2019 11:26:26 CDT by Martin Dickson
--- NOTE | 2019-01-13 06:39 | NUR ---
patient arrived to unit at 0415. VS stable, assessment complete. patient resting comfortable on room air. valuables checked. call light with in reach, bed in low, locked position.
[2019-01-13 07:00] VITALS: BP 90/46
--- NOTE | 2019-01-13 07:57 | RAD ---
Examination: PORTABLE CHEST 1V History: chest pain Comparison/Correlation: 03/20/2018 portable chest x-ray exam Findings: Portable supine frontal view chest was obtained. Heart size is is borderline. No pneumothorax. No definite effusion. Right perihilar linear atelectasis is minimal and new in the interval. No acute bony process. Impression: Minimal right perihilar linear atelectasis. Electronically signed by: Jose A Lunsford MD (01/13/2019 7:54 AM) [facility]
[2019-01-13] MEDS ORDERED: ACETAMINOPHEN/CODEINE 300/30MG TABLET. PO PRN (08:15)
[2019-01-13] MEDS ORDERED: ACETAMINOPHEN 500 MG TABLET PO PRN (08:15)
[2019-01-13] MEDS ORDERED: ALPRAZolam 0.5 MG TABLET PO PRN (08:15)
[2019-01-13] MEDS ORDERED: ONDANSETRON PF 4 MG/2 ML VIAL. IV PRN (08:15)
[2019-01-13] MEDS ORDERED: ONDANSETRON ODT 4 MG TAB.RAPDIS. PO PRN (08:15)
[2019-01-13] MEDS ORDERED: LOPERAMIDE 2 MG CAPSULE PO PRN (08:15)
--- NOTE | 2019-01-13 08:35 | NUR ---
IP: patient has hx of +MRSA screen 04/08/18, requires contact precautions until 2 negative results 7 days apart.
[2019-01-13] MEDS: METOPROLOL SUCC 24HR ER 100 MG TAB.ER.24H. PO SCH (09:00)
[2019-01-13] MEDS: MULTIVITAMIN with MINERAL TABLET. PO SCH (09:47)
[2019-01-13] MEDS: GABAPENTIN 400 MG CAPSULE. PO SCH (09:48)
[2019-01-13] MEDS: OMEGA-3 FATTY ACIDS/FISH OIL 1,000 MG CAPSULE. PO SCH (09:49)
[2019-01-13] MEDS: CITALOPRAM 20 MG TABLET. PO SCH (09:49)
[2019-01-13] MEDS: PANTOPRAZOLE 40 MG TABLET.DR. PO SCH (09:49)
[2019-01-13] MEDS: CALCIUM CARB/VIT D3 500/200 TABLET. PO SCH (09:50)
[2019-01-13] MEDS: LEVOTHYROXINE 100 MCG TABLET PO SCH (09:50)
[2019-01-13] MEDS: CYANOCOBALAMIN (VITAMIN B-12) 100 MCG TABLET PO SCH ×2 (09:51→21:15)
[2019-01-13] MEDS: HYDROcodone/APAP 7.5/325MG 1 TAB TABLET PO PRN ×2 (10:00→18:29)
--- NOTE | 2019-01-13 10:33 | PDOC1 ---
History and Physical Date of Admission Date of Admission DATE: 01/13/19 TIME: 10:28 Identification/Chief Complaint Chief Complaint weak, poor PO, diarrhea Source Source: Caregiver, Chart review, Patient History of Present Illness History of Present Illness NOt The best historian, she is still weak and would rather rest than speak with me for my H&P. Most history obtained from the ER M.D. and chart 68-year-old white female, obese BMI 52, few days history of fatigue, weakness, diarrhea. Reports of fever 99. But now denies diarrhea to me. Afebrile here, Blood pressure also hypotensive at the ER responded to IV fluids. On Lasix at home. Always has chronic leg edema cellulitis of the right leg 1 yr ago, also history of UTI. Found to be in acute renal failure with creatinine 4.5 which is a jump from her baseline. On losartan, metformin etc. Consulted renal, I have held the 2 meds of course,. Getting gentle IV hydration 75 mL from ER as history of chronic lymphedema CHF on Lasix 80 daily at home. Also history of Synthroid hypothyroidism/. Pro calcitonin elevated at 0.159 Past Medical History Cardiovascular: HTN Pulmonary: Asthma, Bronchitis, COPD, Pneumonia, Other CENTRAL NERVOUS SYSTEM: Periperal neuropathy GI: GERD Heme/Onc: Anemia NOS Hepatobiliary: Hep A/B/C Psych: Anxiety, Depression Musculoskeletal: Osteoarthritis, Other Renal/: Acute renal failure, Other Endocrine: Hypothyroidism, Other Past Surgical History Past Surgical History: Breast Biopsy, Cholecystectomy, Hysterectomy, Other Family History Family History: Coronary Artery Disease, Diabetes, Hypertension Social History Smoke: No ALCOHOL: none Drugs: None Current Problem List Problem List Problems Medical Problems: (1) Acute renal failure Status: Acute Current Medications Current Medications Current Medications Sodium Chloride 1,000 ml @ 1,000 mls/hr 1X ONCE IV Last administered on 01/13/19at 00:30; Start 01/13/19 at 00:30; Stop 01/13/19 at 01:29; Status DC Sodium Chloride 1,000 ml @ 1,000 mls/hr 1X ONCE IV Last administered on 01/13/19at 00:30; Start 01/13/19 at 00:30; Stop 01/13/19 at 01:29; Status DC Ertapenem 50 ml @ 100 mls/hr 1X ONCE IV Last administered on 01/13/19at 01:11; Start 01/13/19 at 01:00; Stop 01/13/19 at 01:29; Status DC Vancomycin HCl (Vanco Per Pharmacy) 1 each PRN DAILY PRN MC SEE COMMENTS Last administered on 01/13/19at 02:51; Start 01/13/19 at 01:00 Sodium Chloride 1,000 ml @ 1,380 mls/hr Q44M IV Last administered on 01/13/19at 01:00; Start 01/13/19 at 01:00; Stop 01/13/19 at 01:59; Status DC Vancomycin HCl 2 gm/Sodium Chloride 500 ml @ 250 mls/hr 1X ONCE IV Last administered on 01/13/19at 01:11; Start 01/13/19 at 01:00; Stop 01/13/19 at 02:59; Status DC Sodium Chloride 1,000 ml @ 75 mls/hr [id number] IV ; Start 01/13/19 at 03:15; Stop 01/14/19 at 03:14 Loperamide HCl (Imodium) 2 mg PRN Q15MIN PRN PO DIARRHEA; Start 01/13/19 at 08:15 Acetaminophen/ Codeine Phosphate (Tylenol #3) 1 tab PRN Q6HRS PRN PO PAIN MILD; Start 01/13/19 at 08:15 Acetaminophen (Tylenol) 500 mg PRN Q6HRS PRN PO HEADACHE / TEMP; Start 01/13/19 at 08:15 Ondansetron HCl (Zofran) 4 mg PRN Q6HRS PRN IV NAUSEA/VOMITING; Start 01/13/19 at 08:15 Ondansetron HCl (Zofran Odt) 4 mg PRN Q6HRS PRN PO NAUSEA/VOMITING; Start 01/13/19 at 08:15 Albuterol Sulfate (Ventolin Neb Soln) 2.5 mg RTQID NEB ; Start 01/13/19 at 09:00 Alprazolam (Xanax) 0.5 mg PRN TID PRN PO ANXIETY / AGITATION; Start 01/13/19 at 08:15 Ergocalciferol (Vitamin D2) 50,000 unit WEEKLY PO ; Start 01/14/19 at 09:00 Acetaminophen/ Hydrocodone Bitart (Lortab 7.5/325) 1 tab PRN Q6HRS PRN PO MODERATE TO SEVERE PAIN Last administered on 01/13/19 10:00; Start 01/13/19 at 08:15 Levothyroxine Sodium (Synthroid) 300 mcg DAILY07 PO Last administered on 01/13/19 09:50; Start 01/13/19 at 09:00 Metoprolol Succinate (Toprol Xl) 100 mg DAILY PO ; Start 01/13/19 at 09:00 Fish Oil (Fish Oil) 1,000 mg DAILY PO Last administered on 01/13/19 09:49; Start 01/13/19 at 09:00 Budesonide (Pulmicort) 0.5 mg RTBID NEB ; Start 01/13/19 at 20:00 Calcium/Vitamin D (Oscal D 500mg/ 200uts) 1 tab DAILY PO Last administered on 01/13/19 09:50; Start 01/13/19 at 09:00 Citalopram Hydrobromide (CeleXA) 40 mg DAILY PO Last administered on 01/13/19 09:49; Start 01/13/19 at 09:00 Cyanocobalamin (Vitamin B-12) 250 mcg BID PO Last administered on 01/13/19 09:51; Start 01/13/19 at 09:00 Gabapentin (Neurontin) 800 mg DAILY PO Last administered on 01/13/19 09:48; Start 01/13/19 at 09:00 Multivitamins (Thera M Plus) 1 tab DAILY PO Last administered on 01/13/19 09:47; Start 01/13/19 at 09:00 Pantoprazole Sodium (Protonix) 40 mg DAILYAC PO Last administered on 01/13/19 09:49; Start 01/13/19 at 09:00 Pramipexole Dihydrochloride (miraPEX) 1 mg QHS PO ; Start 01/13/19 at 21:00 Active Scripts Active Hydrocodone-Apap 7.5-325 (Hydrocodone Bit/Acetaminophen) 1 Each Tablet 1 Tab PO PRN Q6HRS PRN Reported Omeprazole 40 Mg Capsule.dr 1 Cap PO DAILY Levothyroxine Sodium 100 Mcg Tablet 300 Mcg PO DAILY Klor-Con M20 (Potassium Chloride) 20 Meq Tab.er.prt 20 Mg PO BID Losartan Potassium 100 Mg Tablet 100 Mg PO DAILY Lasix (Furosemide) 40 Mg Tablet 80 Mg PO DAILY Proair Hfa Inhaler (Albuterol Sulfate) 8.5 Gm Hfa.aer.ad 4 Puff IH PRN Q4-6HRS B-12 (Cyanocobalamin (Vitamin B-12)) 250 Mcg Tablet 250 Mcg PO BID Calcium + D3 Er Tablet (Calcium Carb & Cit/Vitamin D3) 1 Each Tablet.er 1 Each PO DAILY Vitamin D2 (Ergocalciferol (Vitamin D2)) 50,000 Unit Capsule 50,000 Unit PO WEEKLY Mirapex (Pramipexole Di-Hcl) 0.5 Mg Tablet 1 Mg PO QHS Multivitamins With Iron 1 Each Tablet 1 Each PO DAILY Fish Oil 1,000 Mg Capsule ([place]-3 Fatty Acids/Fish Oil) 1 Each Capsule 1,000 Mg PO DAILY Symbicort 160-4.5 Mcg Inhaler (Budesonide/Formoterol Fumarate) 10.2 Gm Hfa.aer.ad 2 Puff IH BID Alprazolam 0.5 Mg Tablet 0.5 Mg PO PRN TID PRN Gabapentin 800 Mg Tablet 800 Mg PO TID Metformin Hcl 500 Mg Tablet 500 Mg PO DAILY Citalopram Hbr (Citalopram Hydrobromide) 40 Mg Tablet 40 Mg PO DAILY Metoprolol Succinate ( Xl ) (Metoprolol Succinate) 100 Mg Tab.er.24h 100 Mg PO DAILY Allergies Allergies: Coded Allergies: amoxicillin trihydrate (Verified Allergy, Intermediate, 03/20/18) HAS TOLERATED CTX celecoxib (Verified Allergy, Intermediate, 10/15/14) potassium clavulanate (Verified Allergy, Intermediate, 10/15/14) I S O L A T I O N *CONTACT* (Verified Allergy, Unknown, 02/11/15) mrsa + ROS Review of System too weak to participate but otherwise positive for fatigue weakness diarrhea, poor by mouth intake the rest 14 point systems negative Physical Exam General: No acute distress HEENT: Atraumatic, PERRLA, EOMI Lungs: Clear to auscultation, Normal air movement Heart: S1S2, RRR, no thrills, no rubs, no gallops, no murmurs Cardiovascular: S1 Breasts: Normal, Rt breast nml w/o mass, Lt breast nml w/o mass, Nipples normal Abdomen: Normal bowel sounds, Soft, No tenderness, No hepatosplenomegaly, No masses PELVIC: Nml ext genitalia Extremities: No clubbing, No cyanosis, No edema, Normal pulses, No tenderness/swelling Skin: No rashes, No breakdown, No significant lesion Neuro: Normal gait, Normal speech, Strength at 5/5 X4 ext, Normal tone, Sensation intact, Cranial nerves 3-12 NL, Reflexes 2+ Psych/Mental Status: Mental status NL, Mood NL Vitals Vitals Vital Signs Date Time Temp Pulse Resp B/P (MAP) Pulse Ox O2 Delivery O2 Flow Rate FiO2 01/13/19 10:00 91 Room Air 01/13/19 09:00 69 90/46 01/13/19 07:00 98.1 14 98.1 Labs Labs Laboratory Tests Test 01/13/19 00:20 01/13/19 01:06 01/13/19 02:11 White Blood Count 8.3 x10^3/uL (4.0-11.0) Red Blood Count 3.19 x10^6/uL (3.50-5.40) Hemoglobin 9.1 g/dL (12.0-15.5) Hematocrit 29.3 % (36.0-47.0) Mean Corpuscular Volume 92 fL (79-100) Mean Corpuscular Hemoglobin 29 pg (25-35) Mean Corpuscular Hemoglobin Concent 31 g/dL (31-37) Red Cell Distribution Width 15.9 % (11.5-14.5) Platelet Count 151 x10^3/uL (140-400) Neutrophils (%) (Auto) 69 % (31-73) Lymphocytes (%) (Auto) 23 % (24-48) Monocytes (%) (Auto) 5 % (0-9) Eosinophils (%) (Auto) 2 % (0-3) Basophils (%) (Auto) 1 % (0-3) Neutrophils # (Auto) 5.7 x10^3uL (1.8-7.7) Lymphocytes # (Auto) 1.9 x10^3/uL (1.0-4.8) Monocytes # (Auto) 0.4 x10^3/uL (0.0-1.1) Eosinophils # (Auto) 0.2 x10^3/uL (0.0-0.7) Basophils # (Auto) 0.1 x10^3/uL (0.0-0.2) Prothrombin Time 13.8 SEC (11.7-14.0) Prothromb Time International Ratio 1.1 (0.8-1.1) Sodium Level 139 mmol/L (136-145) Potassium Level 5.0 mmol/L (3.5-5.1) Chloride Level 105 mmol/L (98-107) Carbon Dioxide Level 21 mmol/L (21-32) Anion Gap 13 (6-14) Blood Urea Nitrogen 64 mg/dL (7-20) Creatinine 4.5 mg/dL (0.6-1.0) Estimated GFR (Cockcroft-Gault) 9.8 BUN/Creatinine Ratio 14 (6-20) Glucose Level 105 mg/dL (70-99) Calcium Level 8.8 mg/dL (8.5-10.1) Total Bilirubin 0.1 mg/dL (0.2-1.0) Aspartate Amino Transf (AST/SGOT) 16 U/L (15-37) Alanine Aminotransferase (ALT/SGPT) 17 U/L (14-59) Alkaline Phosphatase 149 U/L (46-116) Troponin I Quantitative 0.017 ng/mL (0.000-0.055) OF-Tpy-A-Type Natriuretic Peptide 860 pg/mL (0-124) Total Protein 7.5 g/dL (6.4-8.2) Albumin 3.3 g/dL (3.4-5.0) Albumin/Globulin Ratio 0.8 (1.0-1.7) Procalcitonin 0.15 ng/mL (0.00-0.10) Lactic Acid Level 0.6 mmol/L (0.4-2.0) Urine Collection Type Unknown Urine Color Yellow Urine Clarity Clear Urine pH 5.0 Urine Specific Check 1.015 Urine Protein Negative mg/dL (NEG-TRACE) Urine Glucose (UA) Negative mg/dL (NEG) Urine Ketones (Stick) Negative mg/dL (NEG) Urine Blood Negative (NEG) Urine Nitrite Negative (NEG) Urine Bilirubin Negative (NEG) Urine Urobilinogen Dipstick 0.2 mg/dL (0.2 mg/dL) Urine Leukocyte Esterase Negative (NEG) Urine RBC Occ /HPF (0-2) Urine WBC Occ /HPF (0-4) Urine Squamous Epithelial Cells Few /LPF Urine Amorphous Sediment Present /HPF Urine Bacteria 0 /HPF (0-FEW) Urine Hyaline Casts Many /HPF Laboratory Tests Test 01/13/19 00:20 01/13/19 01:06 01/13/19 02:11 White Blood Count 8.3 x10^3/uL (4.0-11.0) Red Blood Count 3.19 x10^6/uL (3.50-5.40) Hemoglobin 9.1 g/dL (12.0-15.5) Hematocrit 29.3 % (36.0-47.0) Mean Corpuscular Volume 92 fL (79-100) Mean Corpuscular Hemoglobin 29 pg (25-35) Mean Corpuscular Hemoglobin Concent 31 g/dL (31-37) Red Cell Distribution Width 15.9 % (11.5-14.5) Platelet Count 151 x10^3/uL (140-400) Neutrophils (%) (Auto) 69 % (31-73) Lymphocytes (%) (Auto) 23 % (24-48) Monocytes (%) (Auto) 5 % (0-9) Eosinophils (%) (Auto) 2 % (0-3) Basophils (%) (Auto) 1 % (0-3) Neutrophils # (Auto) 5.7 x10^3uL (1.8-7.7) Lymphocytes # (Auto) 1.9 x10^3/uL (1.0-4.8) Monocytes # (Auto) 0.4 x10^3/uL (0.0-1.1) Eosinophils # (Auto) 0.2 x10^3/uL (0.0-0.7) Basophils # (Auto) 0.1 x10^3/uL (0.0-0.2) Prothrombin Time 13.8 SEC (11.7-14.0) Prothromb Time International Ratio 1.1 (0.8-1.1) Sodium Level 139 mmol/L (136-145) Potassium Level 5.0 mmol/L (3.5-5.1) Chloride Level 105 mmol/L (98-107) Carbon Dioxide Level 21 mmol/L (21-32) Anion Gap 13 (6-14) Blood Urea Nitrogen 64 mg/dL (7-20) Creatinine 4.5 mg/dL (0.6-1.0) Estimated GFR (Cockcroft-Gault) 9.8 BUN/Creatinine Ratio 14 (6-20) Glucose Level 105 mg/dL (70-99) Calcium Level 8.8 mg/dL (8.5-10.1) Total Bilirubin 0.1 mg/dL (0.2-1.0) Aspartate Amino Transf (AST/SGOT) 16 U/L (15-37) Alanine Aminotransferase (ALT/SGPT) 17 U/L (14-59) Alkaline Phosphatase 149 U/L (46-116) Troponin I Quantitative 0.017 ng/mL (0.000-0.055) SX-Gkc-C-Type Natriuretic Peptide 860 pg/mL (0-124) Total Protein 7.5 g/dL (6.4-8.2) Albumin 3.3 g/dL (3.4-5.0) Albumin/Globulin Ratio 0.8 (1.0-1.7) Procalcitonin 0.15 ng/mL (0.00-0.10) Lactic Acid Level 0.6 mmol/L (0.4-2.0) Urine Collection Type Unknown Urine Color Yellow Urine Clarity Clear Urine pH 5.0 Urine Specific Check 1.015 Urine Protein Negative mg/dL (NEG-TRACE) Urine Glucose (UA) Negative mg/dL (NEG) Urine Ketones (Stick) Negative mg/dL (NEG) Urine Blood Negative (NEG) Urine Nitrite Negative (NEG) Urine Bilirubin Negative (NEG) Urine Urobilinogen Dipstick 0.2 mg/dL (0.2 mg/dL) Urine Leukocyte Esterase Negative (NEG) Urine RBC Occ /HPF (0-2) Urine WBC Occ /HPF (0-4) Urine Squamous Epithelial Cells Few /LPF Urine Amorphous Sediment Present /HPF Urine Bacteria 0 /HPF (0-FEW) Urine Hyaline Casts Many /HPF VTE Prophylaxis Ordered VTE Prophylaxis Devices: Yes VTE Pharmacological Prophylaxi: Yes Assessment/Plan Assessment/Plan A/P: AK I/VMN-secondary to GI loss-reports of diarrhea a few days ago none so far- check stool Obesity, BMI 52 Hypothyroidism- chronic stable Hypotension responded to IV fluids-gentle IV hydration History of chronic lymphedema, chronic CHF on Lasix 80 once a day Mild cellulitis bilateral lower extremity-maybe some clinda will not hurt PCN allergy History UTI-but none currently Hypothyroidism on Synthroid Sepsis POA with organ dysfunction namely renal failure PLAN: Gentle IV hydration Hold metformin and losartan and Lasix sec to EYAL Renal consult BMP tomorrow, avoid nephrotoxins PT OT Okay for cardiac or renal diet I have reconciled home meds except metformin and losartan and Lasix Watch out for further hypotension bolus if needed Clindamycin for mild to moderate cephalitis of bilateral legs PT OT/OT for lymphedema consult 2 midnights admit CVC bed JENNYFER SEVILLA MD Jan 13, 2019 10:33
[2019-01-13 11:10] VITALS: BP 102/44
[2019-01-13] MEDS: CLINDAMYCIN 600MG PREMIX 50 ML IV SCH ×3 (11:53→21:15)
[2019-01-13] MEDS: ALBUTEROL SULFATE 2.5 MG/3 ML NEBU. NEB SCH ×4 (11:57→19:39)
--- NOTE | 2019-01-13 12:05 | PDOC2 ---
CONSULT Date of Consult Date of Consult DATE: 01/13/19 TIME: 12:01 Reason for Consult Reason for Consult: EYAL Referring Physician Referring Physician: DI Identification/Chief Complaint Chief Complaint WEAKNESS Source Source: Chart review, Patient History of Present Illness Reason for Visit: THIS IS A 68 YR OLD WITH WEAKNESS, NAUSEA AND DIARRHEA. SHE IS NOTED TO BE HYPOTENSIVE ON ADMIT. CR OF 4.5. CKD NOTED WITH CR OF 1.3-1.5 LAST YEAR. HAS BEEN TAKING SOME IBUPROFEN DAILY WELL FOR ACHES AND PAINS. NO OTHER NEPHROTOXINS NOTED. NO OTHER HX REPORTED. NO UTI NOW. NO SURGICAL HX REPORTED. SHE HAS BEEN ON DIURETICS, K SUPPLEMENTS AND AN ARB AT HOME. CKD DUE TO DM II AND HTN Past Medical History Cardiovascular: HTN Pulmonary: Asthma, Bronchitis, COPD, Pneumonia, Other CENTRAL NERVOUS SYSTEM: Periperal neuropathy GI: GERD Heme/Onc: Anemia NOS Hepatobiliary: Hep A/B/C Psych: Anxiety, Depression Musculoskeletal: Osteoarthritis, Other Renal/: Chronic renal insuff, Other Endocrine: Hypothyroidism, Other Past Surgical History Past Surgical History: Breast Biopsy, Cholecystectomy, Hysterectomy, Other Family History Family History: Coronary Artery Disease, Diabetes, Hypertension Social History No ALCOHOL: none Drugs: None Lives: with Family Domestic Violence: Neg Current Problem List Problem List Problems Medical Problems: (1) Acute renal failure Status: Acute Current Medications Current Medications Current Medications Sodium Chloride 1,000 ml @ 1,000 mls/hr 1X ONCE IV Last administered on 01/13/19at 00:30; Start 01/13/19 at 00:30; Stop 01/13/19 at 01:29; Status DC Sodium Chloride 1,000 ml @ 1,000 mls/hr 1X ONCE IV Last administered on 01/13/19at 00:30; Start 01/13/19 at 00:30; Stop 01/13/19 at 01:29; Status DC Ertapenem 50 ml @ 100 mls/hr 1X ONCE IV Last administered on 01/13/19at 01:11; Start 01/13/19 at 01:00; Stop 01/13/19 at 01:29; Status DC Vancomycin HCl (Vanco Per Pharmacy) 1 each PRN DAILY PRN MC SEE COMMENTS Last administered on 01/13/19at 02:51; Start 01/13/19 at 01:00; Stop 01/13/19 at 10:34; Status DC Sodium Chloride 1,000 ml @ 1,380 mls/hr Q44M IV Last administered on 01/13/19at 01:00; Start 01/13/19 at 01:00; Stop 01/13/19 at 01:59; Status DC Vancomycin HCl 2 gm/Sodium Chloride 500 ml @ 250 mls/hr 1X ONCE IV Last administered on 01/13/19at 01:11; Start 01/13/19 at 01:00; Stop 01/13/19 at 02:59; Status DC Sodium Chloride 1,000 ml @ 75 mls/hr [id number] IV ; Start 01/13/19 at 03:15; Stop 01/14/19 at 03:14 Loperamide HCl (Imodium) 2 mg PRN Q15MIN PRN PO DIARRHEA; Start 01/13/19 at 08:15 Acetaminophen/ Codeine Phosphate (Tylenol #3) 1 tab PRN Q6HRS PRN PO PAIN MILD; Start 01/13/19 at 08:15 Acetaminophen (Tylenol) 500 mg PRN Q6HRS PRN PO HEADACHE / TEMP; Start 01/13/19 at 08:15 Ondansetron HCl (Zofran) 4 mg PRN Q6HRS PRN IV NAUSEA/VOMITING; Start 01/13/19 at 08:15 Ondansetron HCl (Zofran Odt) 4 mg PRN Q6HRS PRN PO NAUSEA/VOMITING; Start 01/13/19 at 08:15 Albuterol Sulfate (Ventolin Neb Soln) 2.5 mg RTQID NEB ; Start 01/13/19 at 09:00 Alprazolam (Xanax) 0.5 mg PRN TID PRN PO ANXIETY / AGITATION; Start 01/13/19 at 08:15 Ergocalciferol (Vitamin D2) 50,000 unit WEEKLY PO ; Start 01/14/19 at 09:00 Acetaminophen/ Hydrocodone Bitart (Lortab 7.5/325) 1 tab PRN Q6HRS PRN PO MODERATE TO SEVERE PAIN Last administered on 01/13/19at 10:00; Start 01/13/19 at 08:15 Levothyroxine Sodium (Synthroid) 300 mcg DAILY07 PO Last administered on 01/13/19at 09:50; Start 01/13/19 at 09:00 Metoprolol Succinate (Toprol Xl) 100 mg DAILY PO ; Start 01/13/19 at 09:00 Fish Oil (Fish Oil) 1,000 mg DAILY PO Last administered on 01/13/19 09:49; Start 01/13/19 at 09:00 Budesonide (Pulmicort) 0.5 mg RTBID NEB ; Start 01/13/19 at 20:00 Calcium/Vitamin D (Oscal D 500mg/ 200uts) 1 tab DAILY PO Last administered on 01/13/19 09:50; Start 01/13/19 at 09:00 Citalopram Hydrobromide (CeleXA) 40 mg DAILY PO Last administered on 01/13/19 09:49; Start 01/13/19 at 09:00 Cyanocobalamin (Vitamin B-12) 250 mcg BID PO Last administered on 01/13/19 09:51; Start 01/13/19 at 09:00 Gabapentin (Neurontin) 800 mg DAILY PO Last administered on 01/13/19 09:48; Start 01/13/19 at 09:00 Multivitamins (Thera M Plus) 1 tab DAILY PO Last administered on 01/13/19 09:47; Start 01/13/19 at 09:00 Pantoprazole Sodium (Protonix) 40 mg DAILYAC PO Last administered on 01/13/19 09:49; Start 01/13/19 at 09:00 Pramipexole Dihydrochloride (miraPEX) 1 mg QHS PO ; Start 01/13/19 at 21:00 Clindamycin Phosphate 50 ml @ 100 mls/hr Q8HRS IV Last administered on 01/13/19at 11:53; Start 01/13/19 at 11:00 Lactobacillus Rhamnosus (Culturelle) 1 cap BID PO ; Start 01/13/19 at 21:00 Active Scripts Active Hydrocodone-Apap 7.5-325 (Hydrocodone Bit/Acetaminophen) 1 Each Tablet 1 Tab PO PRN Q6HRS PRN Reported Omeprazole 40 Mg Capsule.dr 1 Cap PO DAILY Levothyroxine Sodium 100 Mcg Tablet 300 Mcg PO DAILY Klor-Con M20 (Potassium Chloride) 20 Meq Tab.er.prt 20 Mg PO BID Losartan Potassium 100 Mg Tablet 100 Mg PO DAILY Lasix (Furosemide) 40 Mg Tablet 80 Mg PO DAILY Proair Hfa Inhaler (Albuterol Sulfate) 8.5 Gm Hfa.aer.ad 4 Puff IH PRN Q4-6HRS B-12 (Cyanocobalamin (Vitamin B-12)) 250 Mcg Tablet 250 Mcg PO BID Calcium + D3 Er Tablet (Calcium Carb & Cit/Vitamin D3) 1 Each Tablet.er 1 Each PO DAILY Vitamin D2 (Ergocalciferol (Vitamin D2)) 50,000 Unit Capsule 50,000 Unit PO WEEKLY Mirapex (Pramipexole Di-Hcl) 0.5 Mg Tablet 1 Mg PO QHS Multivitamins With Iron 1 Each Tablet 1 Each PO DAILY Fish Oil 1,000 Mg Capsule (Beatrice-3 Fatty Acids/Fish Oil) 1 Each Capsule 1,000 Mg PO DAILY Symbicort 160-4.5 Mcg Inhaler (Budesonide/Formoterol Fumarate) 10.2 Gm Hfa.aer.ad 2 Puff IH BID Alprazolam 0.5 Mg Tablet 0.5 Mg PO PRN TID PRN Gabapentin 800 Mg Tablet 800 Mg PO TID Metformin Hcl 500 Mg Tablet 500 Mg PO DAILY Citalopram Hbr (Citalopram Hydrobromide) 40 Mg Tablet 40 Mg PO DAILY Metoprolol Succinate ( Xl ) (Metoprolol Succinate) 100 Mg Tab.er.24h 100 Mg PO DAILY Allergies Allergies: Coded Allergies: amoxicillin trihydrate (Verified Allergy, Intermediate, 03/20/18) HAS TOLERATED CTX celecoxib (Verified Allergy, Intermediate, 10/15/14) potassium clavulanate (Verified Allergy, Intermediate, 10/15/14) I S O L A T I O N *CONTACT* (Verified Allergy, Unknown, 02/11/15) mrsa + ROS General: YES: Fatigue, Malaise, Appetite PSYCHOLOGICAL ROS: YES: Anxiety Eyes: Yes Decreased vision HEENT: YES: Cammie ALLERGY AND IMMUNOLOGY: YES: Seasonal Allergies Respiratory: YES: Cough Gastrointestinal: Yes Diarrhea Genitourinary: YES Other (NOCTURIA) Musculoskeletal: Yes Muscular Weakness Neurological: Yes Dizziness, Yes Weakness Skin: Yes Dry Skin Physical Exam General: Alert, Oriented X3, Cooperative, No acute distress HEENT: Atraumatic, PERRLA Lungs: Clear to auscultation, Normal air movement Heart: Regular rate, Normal S1, Normal S2, No murmurs Abdomen: Normal bowel sounds, Soft, No tenderness, No hepatosplenomegaly Extremities: Other (2+ EDEMA) Neuro: Normal speech, Sensation intact Psych/Mental Status: Mental status NL, Mood NL MUSCULOSKELETAL: No joint tenderness, No deformity Vitals VITALS Vital Signs Date Time Temp Pulse Resp B/P (MAP) Pulse Ox O2 Delivery O2 Flow Rate FiO2 01/13/19 11:10 99.0 18 102/44 (63) 92 Room Air 99.0 01/13/19 09:00 69 Labs Labs Laboratory Tests Test 01/13/19 00:20 01/13/19 01:06 01/13/19 02:11 White Blood Count 8.3 x10^3/uL (4.0-11.0) Red Blood Count 3.19 x10^6/uL (3.50-5.40) Hemoglobin 9.1 g/dL (12.0-15.5) Hematocrit 29.3 % (36.0-47.0) Mean Corpuscular Volume 92 fL (79-100) Mean Corpuscular Hemoglobin 29 pg (25-35) Mean Corpuscular Hemoglobin Concent 31 g/dL (31-37) Red Cell Distribution Width 15.9 % (11.5-14.5) Platelet Count 151 x10^3/uL (140-400) Neutrophils (%) (Auto) 69 % (31-73) Lymphocytes (%) (Auto) 23 % (24-48) Monocytes (%) (Auto) 5 % (0-9) Eosinophils (%) (Auto) 2 % (0-3) Basophils (%) (Auto) 1 % (0-3) Neutrophils # (Auto) 5.7 x10^3uL (1.8-7.7) Lymphocytes # (Auto) 1.9 x10^3/uL (1.0-4.8) Monocytes # (Auto) 0.4 x10^3/uL (0.0-1.1) Eosinophils # (Auto) 0.2 x10^3/uL (0.0-0.7) Basophils # (Auto) 0.1 x10^3/uL (0.0-0.2) Prothrombin Time 13.8 SEC (11.7-14.0) Prothromb Time International Ratio 1.1 (0.8-1.1) Sodium Level 139 mmol/L (136-145) Potassium Level 5.0 mmol/L (3.5-5.1) Chloride Level 105 mmol/L (98-107) Carbon Dioxide Level 21 mmol/L (21-32) Anion Gap 13 (6-14) Blood Urea Nitrogen 64 mg/dL (7-20) Creatinine 4.5 mg/dL (0.6-1.0) Estimated GFR (Cockcroft-Gault) 9.8 BUN/Creatinine Ratio 14 (6-20) Glucose Level 105 mg/dL (70-99) Calcium Level 8.8 mg/dL (8.5-10.1) Total Bilirubin 0.1 mg/dL (0.2-1.0) Aspartate Amino Transf (AST/SGOT) 16 U/L (15-37) Alanine Aminotransferase (ALT/SGPT) 17 U/L (14-59) Alkaline Phosphatase 149 U/L (46-116) Troponin I Quantitative 0.017 ng/mL (0.000-0.055) CD-Pik-U-Type Natriuretic Peptide 860 pg/mL (0-124) Total Protein 7.5 g/dL (6.4-8.2) Albumin 3.3 g/dL (3.4-5.0) Albumin/Globulin Ratio 0.8 (1.0-1.7) Procalcitonin 0.15 ng/mL (0.00-0.10) Lactic Acid Level 0.6 mmol/L (0.4-2.0) Urine Collection Type Unknown Urine Color Yellow Urine Clarity Clear Urine pH 5.0 Urine Specific Rohwer 1.015 Urine Protein Negative mg/dL (NEG-TRACE) Urine Glucose (UA) Negative mg/dL (NEG) Urine Ketones (Stick) Negative mg/dL (NEG) Urine Blood Negative (NEG) Urine Nitrite Negative (NEG) Urine Bilirubin Negative (NEG) Urine Urobilinogen Dipstick 0.2 mg/dL (0.2 mg/dL) Urine Leukocyte Esterase Negative (NEG) Urine RBC Occ /HPF (0-2) Urine WBC Occ /HPF (0-4) Urine Squamous Epithelial Cells Few /LPF Urine Amorphous Sediment Present /HPF Urine Bacteria 0 /HPF (0-FEW) Urine Hyaline Casts Many /HPF Laboratory Tests Test 01/13/19 00:20 01/13/19 01:06 01/13/19 02:11 White Blood Count 8.3 x10^3/uL (4.0-11.0) Red Blood Count 3.19 x10^6/uL (3.50-5.40) Hemoglobin 9.1 g/dL (12.0-15.5) Hematocrit 29.3 % (36.0-47.0) Mean Corpuscular Volume 92 fL (79-100) Mean Corpuscular Hemoglobin 29 pg (25-35) Mean Corpuscular Hemoglobin Concent 31 g/dL (31-37) Red Cell Distribution Width 15.9 % (11.5-14.5) Platelet Count 151 x10^3/uL (140-400) Neutrophils (%) (Auto) 69 % (31-73) Lymphocytes (%) (Auto) 23 % (24-48) Monocytes (%) (Auto) 5 % (0-9) Eosinophils (%) (Auto) 2 % (0-3) Basophils (%) (Auto) 1 % (0-3) Neutrophils # (Auto) 5.7 x10^3uL (1.8-7.7) Lymphocytes # (Auto) 1.9 x10^3/uL (1.0-4.8) Monocytes # (Auto) 0.4 x10^3/uL (0.0-1.1) Eosinophils # (Auto) 0.2 x10^3/uL (0.0-0.7) Basophils # (Auto) 0.1 x10^3/uL (0.0-0.2) Prothrombin Time 13.8 SEC (11.7-14.0) Prothromb Time International Ratio 1.1 (0.8-1.1) Sodium Level 139 mmol/L (136-145) Potassium Level 5.0 mmol/L (3.5-5.1) Chloride Level 105 mmol/L (98-107) Carbon Dioxide Level 21 mmol/L (21-32) Anion Gap 13 (6-14) Blood Urea Nitrogen 64 mg/dL (7-20) Creatinine 4.5 mg/dL (0.6-1.0) Estimated GFR (Cockcroft-Gault) 9.8 BUN/Creatinine Ratio 14 (6-20) Glucose Level 105 mg/dL (70-99) Calcium Level 8.8 mg/dL (8.5-10.1) Total Bilirubin 0.1 mg/dL (0.2-1.0) Aspartate Amino Transf (AST/SGOT) 16 U/L (15-37) Alanine Aminotransferase (ALT/SGPT) 17 U/L (14-59) Alkaline Phosphatase 149 U/L (46-116) Troponin I Quantitative 0.017 ng/mL (0.000-0.055) XG-Vpa-E-Type Natriuretic Peptide 860 pg/mL (0-124) Total Protein 7.5 g/dL (6.4-8.2) Albumin 3.3 g/dL (3.4-5.0) Albumin/Globulin Ratio 0.8 (1.0-1.7) Procalcitonin 0.15 ng/mL (0.00-0.10) Lactic Acid Level 0.6 mmol/L (0.4-2.0) Urine Collection Type Unknown Urine Color Yellow Urine Clarity Clear Urine pH 5.0 Urine Specific Rohwer 1.015 Urine Protein Negative mg/dL (NEG-TRACE) Urine Glucose (UA) Negative mg/dL (NEG) Urine Ketones (Stick) Negative mg/dL (NEG) Urine Blood Negative (NEG) Urine Nitrite Negative (NEG) Urine Bilirubin Negative (NEG) Urine Urobilinogen Dipstick 0.2 mg/dL (0.2 mg/dL) Urine Leukocyte Esterase Negative (NEG) Urine RBC Occ /HPF (0-2) Urine WBC Occ /HPF (0-4) Urine Squamous Epithelial Cells Few /LPF Urine Amorphous Sediment Present /HPF Urine Bacteria 0 /HPF (0-FEW) Urine Hyaline Casts Many /HPF Assessment/Plan Assessment/Plan IMP EYAL WITH CR OF 4.5-UA NEG FOR NEPHRITIS CKD STAGE 3 WITH CR OF 1.3-1.5 EXTRACELLULAR VOLUME DEPLETION HYPOTENSION DUE TO ABOVE MORBID OBESITY LE LYMPHEDEMA ? LE CELLULITIS PLAN ANTIBIOTICS VOLUME EXPAND HOLD HER DIURETICS HOLD K, ARB AND METFORMIN RENAL SONOGRAM JEREMIAS HOBBS MD Jan 13, 2019 12:05
--- NOTE | 2019-01-13 14:47 | NUR ---
SS following for discharge planning. SS reviewed pt chart. Pt is from home and is currently on room air. PT/OT ordered. No discharge needs noted at this time. SS will continue to follow for discharge planning.
[2019-01-13 15:38] VITALS: BP 89/34
--- NOTE | 2019-01-13 17:18 | RAD ---
RENAL COMPLETE BILATERAL History: Acute kidney injury Comparison: October 03, 2014 Findings: Multiple sonographic images of the kidneys and retroperitoneal structures are submitted. Right kidney measured 11.9 x 5.1 x 4.9 cm. Left kidney measured 12.8 x 5.4 x 5.1 cm. There is no hydronephrosis of either kidney. Exam is somewhat limited due to patient's body habitus. Urinary bladder is not well-visualized as decompressed by March catheter. Inferior vena cava and abdominal aorta are not demonstrated. Impression: 1. No significant abnormality is demonstrated, exam somewhat limited due to patient's body habitus. Electronically signed by: Carson Sky MD (01/13/2019 5:15 PM) [id number]
[2019-01-13 19:20] VITALS: BP 94/46
[2019-01-13] MEDS: BUDESONIDE 0.5 MG/2 ML NEBU. NEB SCH (19:39)
[2019-01-13] MEDS: PRAMIPEXOLE 1 MG TABLET. PO SCH (21:15)
[2019-01-13] MEDS: LACTOBACILLUS RHAMNOSUS GG 1 CAPSULE. PO SCH (21:15)
[2019-01-13 23:20] VITALS: BP 98/46
[2019-01-14 03:15] VITALS: BP 94/50
[2019-01-14] MEDS: HYDROcodone/APAP 7.5/325MG 1 TAB TABLET PO PRN ×2 (04:19→13:50)
[2019-01-14] MEDS: LEVOTHYROXINE 100 MCG TABLET PO SCH (05:27)
[2019-01-14] MEDS: CLINDAMYCIN 600MG PREMIX 50 ML IV SCH (05:27)
[2019-01-14 07:25] VITALS: BP 116/61
[2019-01-14 07:41] LABS: CALCIUM 8.1 mg/dL (8.5-10.1); CREATININE 2.9 mg/dL (0.6-1.0); GFR 16.2; MAGNESIUM 2.2 mg/dL (1.8-2.4); PHOSPHORUS 6.4 mg/dL (2.6-4.7); POTASSIUM 3.9 mmol/L (3.5-5.1)
[2019-01-14] MEDS ORDERED: ERGOCALCIFEROL (VITAMIN D2) 50,000 UNIT CAPSULE. PO SCH (09:00)
[2019-01-14] MEDS: ALBUTEROL SULFATE 2.5 MG/3 ML NEBU. NEB SCH ×4 (09:06→19:15)
[2019-01-14] MEDS: BUDESONIDE 0.5 MG/2 ML NEBU. NEB SCH ×2 (09:06→19:15)
[2019-01-14] MEDS: CALCIUM CARB/VIT D3 500/200 TABLET. PO SCH (09:15)
[2019-01-14] MEDS: PANTOPRAZOLE 40 MG TABLET.DR. PO SCH (09:17)
[2019-01-14] MEDS: LACTOBACILLUS RHAMNOSUS GG 1 CAPSULE. PO SCH ×2 (09:17→21:01)
[2019-01-14] MEDS: MULTIVITAMIN with MINERAL TABLET. PO SCH (09:17)
[2019-01-14] MEDS: GABAPENTIN 400 MG CAPSULE. PO SCH (09:18)
[2019-01-14] MEDS: CITALOPRAM 20 MG TABLET. PO SCH (09:18)
[2019-01-14] MEDS: CYANOCOBALAMIN (VITAMIN B-12) 100 MCG TABLET PO SCH ×2 (09:18→21:02)
[2019-01-14] MEDS: OMEGA-3 FATTY ACIDS/FISH OIL 1,000 MG CAPSULE. PO SCH (09:21)
[2019-01-14] MEDS: METOPROLOL SUCC 24HR ER 100 MG TAB.ER.24H. PO SCH (09:22)
[2019-01-14 10:45] VITALS: BP 131/48
--- NOTE | 2019-01-14 11:58 | PDOC ---
PROGRESS NOTES Chief Complaint Chief Complaint AK I/VMN-secondary to GI loss-reports of diarrhea a few days ago none so far- check stool Obesity, BMI 52 Hypothyroidism- chronic stable Hypotension responded to IV fluids-gentle IV hydration History of chronic lymphedema, chronic CHF on Lasix 80 once a day Mild cellulitis bilateral lower extremity-maybe some clinda will not hurt PCN allergy History UTI-but none currently Hypothyroidism on Synthroid Sepsis POA with organ dysfunction namely renal failure History of Present Illness History of Present Illness Looks better and her numbers are better Creatinine down to 2.9 from 4 She is up in chair ESR 47 She came in with chills, No pneumonia on chest x-ray, no UTI ESR 47 she asks me what the chills are from PLAN: IVF and recheck BMP tomorrow Avoid nephrotoxins PT OT will work with her monitor for further fevers, on clinda IV Vitals Vitals Vital Signs Date Time Temp Pulse Resp B/P (MAP) Pulse Ox O2 Delivery O2 Flow Rate FiO2 01/14/19 10:45 98.6 82 14 131/48 (75) 87 Room Air 98.6 Physical Exam General: Alert, Oriented X3, Cooperative, No acute distress Heart: Regular rate, Normal S1, Normal S2, No murmurs Lungs: Clear, Wheezing Abdomen: Normal bowel sounds, Soft, No tenderness, No hepatosplenomegaly Extremities: Other (2+ EDEMA) Skin: No rashes, No breakdown, No significant lesion Labs LABS Laboratory Tests Test 01/14/19 06:00 Sodium Level 137 mmol/L (136-145) Potassium Level 3.9 mmol/L (3.5-5.1) Chloride Level 107 mmol/L (98-107) Carbon Dioxide Level 18 mmol/L (21-32) Anion Gap 12 (6-14) Blood Urea Nitrogen 48 mg/dL (7-20) Creatinine 2.9 mg/dL (0.6-1.0) Estimated GFR (Cockcroft-Gault) 16.2 Glucose Level 108 mg/dL (70-99) Calcium Level 8.1 mg/dL (8.5-10.1) Phosphorus Level 6.4 mg/dL (2.6-4.7) Magnesium Level 2.2 mg/dL (1.8-2.4) Review of Systems Review of Systems A 14 point ROS was completed with the following noted as positive: Other systems reviewed and negative. \CONSTITUTIONAL: No fever or chills EYES: No recent changes SKIN: No rash or itching CARDIOVASCULAR: No chest pain, syncope, palpitations, or edema RESPIRATORY: No SOB or cough GASTROINTESTINAL: No nausea, vomiting or abdominal pain NEUROLOGICAL: No headaches or weakness ENDOCRINE: No cold or heat intolerance GENITOURINARY: No urgency or frequency of urination MUSCULOSKELETAL: No back pain or joint pain LYMPHATICS: No enlarged lymph nodes PSYCHIATRIC: No anxiety or depression Assessment and Plan Assessmemt and Plan Problems Medical Problems: (1) Acute renal failure Status: Acute Comment Review of Relevant I have reviewed the following items mikael (where applicable) has been applied. Labs Laboratory Tests Test 01/13/19 00:20 01/13/19 01:06 01/13/19 02:11 01/13/19 04:20 White Blood Count 8.3 x10^3/uL (4.0-11.0) Red Blood Count 3.19 x10^6/uL (3.50-5.40) Hemoglobin 9.1 g/dL (12.0-15.5) Hematocrit 29.3 % (36.0-47.0) Mean Corpuscular Volume 92 fL (79-100) Mean Corpuscular Hemoglobin 29 pg (25-35) Mean Corpuscular Hemoglobin Concent 31 g/dL (31-37) Red Cell Distribution Width 15.9 % (11.5-14.5) Platelet Count 151 x10^3/uL (140-400) Neutrophils (%) (Auto) 69 % (31-73) Lymphocytes (%) (Auto) 23 % (24-48) Monocytes (%) (Auto) 5 % (0-9) Eosinophils (%) (Auto) 2 % (0-3) Basophils (%) (Auto) 1 % (0-3) Neutrophils # (Auto) 5.7 x10^3uL (1.8-7.7) Lymphocytes # (Auto) 1.9 x10^3/uL (1.0-4.8) Monocytes # (Auto) 0.4 x10^3/uL (0.0-1.1) Eosinophils # (Auto) 0.2 x10^3/uL (0.0-0.7) Basophils # (Auto) 0.1 x10^3/uL (0.0-0.2) Prothrombin Time 13.8 SEC (11.7-14.0) Prothromb Time International Ratio 1.1 (0.8-1.1) Sodium Level 139 mmol/L (136-145) Potassium Level 5.0 mmol/L (3.5-5.1) Chloride Level 105 mmol/L (98-107) Carbon Dioxide Level 21 mmol/L (21-32) Anion Gap 13 (6-14) Blood Urea Nitrogen 64 mg/dL (7-20) Creatinine 4.5 mg/dL (0.6-1.0) Estimated GFR (Cockcroft-Gault) 9.8 BUN/Creatinine Ratio 14 (6-20) Glucose Level 105 mg/dL (70-99) Calcium Level 8.8 mg/dL (8.5-10.1) Total Bilirubin 0.1 mg/dL (0.2-1.0) Aspartate Amino Transf (AST/SGOT) 16 U/L (15-37) Alanine Aminotransferase (ALT/SGPT) 17 U/L (14-59) Alkaline Phosphatase 149 U/L (46-116) Troponin I Quantitative 0.017 ng/mL (0.000-0.055) LT-Rtf-Z-Type Natriuretic Peptide 860 pg/mL (0-124) Total Protein 7.5 g/dL (6.4-8.2) Albumin 3.3 g/dL (3.4-5.0) Albumin/Globulin Ratio 0.8 (1.0-1.7) Procalcitonin 0.15 ng/mL (0.00-0.10) Lactic Acid Level 0.6 mmol/L (0.4-2.0) Urine Collection Type Unknown Urine Color Yellow Urine Clarity Clear Urine pH 5.0 Urine Specific [place] 1.015 Urine Protein Negative mg/dL (NEG-TRACE) Urine Glucose (UA) Negative mg/dL (NEG) Urine Ketones (Stick) Negative mg/dL (NEG) Urine Blood Negative (NEG) Urine Nitrite Negative (NEG) Urine Bilirubin Negative (NEG) Urine Urobilinogen Dipstick 0.2 mg/dL (0.2 mg/dL) Urine Leukocyte Esterase Negative (NEG) Urine RBC Occ /HPF (0-2) Urine WBC Occ /HPF (0-4) Urine Squamous Epithelial Cells Few /LPF Urine Amorphous Sediment Present /HPF Urine Bacteria 0 /HPF (0-FEW) Urine Hyaline Casts Many /HPF Nasal Screen MRSA (PCR) Negative (Negative) Test 01/13/19 11:15 01/14/19 06:00 Erythrocyte Sedimentation Rate 47 (0-25) Sodium Level 137 mmol/L (136-145) Potassium Level 3.9 mmol/L (3.5-5.1) Chloride Level 107 mmol/L (98-107) Carbon Dioxide Level 18 mmol/L (21-32) Anion Gap 12 (6-14) Blood Urea Nitrogen 48 mg/dL (7-20) Creatinine 2.9 mg/dL (0.6-1.0) Estimated GFR (Cockcroft-Gault) 16.2 Glucose Level 108 mg/dL (70-99) Calcium Level 8.1 mg/dL (8.5-10.1) Phosphorus Level 6.4 mg/dL (2.6-4.7) Magnesium Level 2.2 mg/dL (1.8-2.4) Laboratory Tests Test 01/14/19 06:00 Sodium Level 137 mmol/L (136-145) Potassium Level 3.9 mmol/L (3.5-5.1) Chloride Level 107 mmol/L (98-107) Carbon Dioxide Level 18 mmol/L (21-32) Anion Gap 12 (6-14) Blood Urea Nitrogen 48 mg/dL (7-20) Creatinine 2.9 mg/dL (0.6-1.0) Estimated GFR (Cockcroft-Gault) 16.2 Glucose Level 108 mg/dL (70-99) Calcium Level 8.1 mg/dL (8.5-10.1) Phosphorus Level 6.4 mg/dL (2.6-4.7) Magnesium Level 2.2 mg/dL (1.8-2.4) Microbiology 01/13/19 Blood Culture - Preliminary, Resulted NO GROWTH AFTER 1 DAY Medications Current Medications Sodium Chloride 1,000 ml @ 1,000 mls/hr 1X ONCE IV Last administered on 01/13/19at 00:30; Start 01/13/19 at 00:30; Stop 01/13/19 at 01:29; Status DC Sodium Chloride 1,000 ml @ 1,000 mls/hr 1X ONCE IV Last administered on 01/13/19at 00:30; Start 01/13/19 at 00:30; Stop 01/13/19 at 01:29; Status DC Ertapenem 50 ml @ 100 mls/hr 1X ONCE IV Last administered on 01/13/19at 01:11; Start 01/13/19 at 01:00; Stop 01/13/19 at 01:29; Status DC Vancomycin HCl (Vanco Per Pharmacy) 1 each PRN DAILY PRN MC SEE COMMENTS Last administered on 01/13/19at 02:51; Start 01/13/19 at 01:00; Stop 01/13/19 at 10:34; Status DC Sodium Chloride 1,000 ml @ 1,380 mls/hr Q44M IV Last administered on 01/13/19at 01:00; Start 01/13/19 at 01:00; Stop 01/13/19 at 01:59; Status DC Vancomycin HCl 2 gm/Sodium Chloride 500 ml @ 250 mls/hr 1X ONCE IV Last administered on 01/13/19at 01:11; Start 01/13/19 at 01:00; Stop 01/13/19 at 02:59; Status DC Sodium Chloride 1,000 ml @ 125 mls/hr Q8H IV Last administered on 01/13/19at 21:16; Start 01/13/19 at 03:15; Stop 01/14/19 at 03:14; Status DC Loperamide HCl (Imodium) 2 mg PRN Q15MIN PRN PO DIARRHEA; Start 01/13/19 at 08:15 Acetaminophen/ Codeine Phosphate (Tylenol #3) 1 tab PRN Q6HRS PRN PO PAIN MILD; Start 01/13/19 at 08:15 Acetaminophen (Tylenol) 500 mg PRN Q6HRS PRN PO HEADACHE / TEMP; Start 01/13/19 at 08:15 Ondansetron HCl (Zofran) 4 mg PRN Q6HRS PRN IV NAUSEA/VOMITING; Start 01/13/19 at 08:15 Ondansetron HCl (Zofran Odt) 4 mg PRN Q6HRS PRN PO NAUSEA/VOMITING; Start 01/13/19 at 08:15 Albuterol Sulfate (Ventolin Neb Soln) 2.5 mg RTQID NEB Last administered on 01/14/19at 09:06; Start 01/13/19 at 09:00 Alprazolam (Xanax) 0.5 mg PRN TID PRN PO ANXIETY / AGITATION Last administered on 01/14/19 00:21; Start 01/13/19 at 08:15 Ergocalciferol (Vitamin D2) 50,000 unit WEEKLY PO Last administered on 01/14/19 09:16; Start 01/14/19 at 09:00 Acetaminophen/ Hydrocodone Bitart (Lortab 7.5/325) 1 tab PRN Q6HRS PRN PO MODERATE TO SEVERE PAIN Last administered on 01/14/19 04:19; Start 01/13/19 at 08:15 Levothyroxine Sodium (Synthroid) 300 mcg DAILY07 PO Last administered on 01/14/19 05:27; Start 01/13/19 at 09:00 Metoprolol Succinate (Toprol Xl) 100 mg DAILY PO Last administered on 01/14/19 09:22; Start 01/13/19 at 09:00 Fish Oil (Fish Oil) 1,000 mg DAILY PO Last administered on 01/14/19 09:21; Start 01/13/19 at 09:00 Budesonide (Pulmicort) 0.5 mg RTBID NEB Last administered on 01/14/19 09:06; Start 01/13/19 at 20:00 Calcium/Vitamin D (Oscal D 500mg/ 200uts) 1 tab DAILY PO Last administered on 01/14/19 09:15; Start 01/13/19 at 09:00 Citalopram Hydrobromide (CeleXA) 40 mg DAILY PO Last administered on 01/14/19 09:18; Start 01/13/19 at 09:00 Cyanocobalamin (Vitamin B-12) 250 mcg BID PO Last administered on 01/14/19 09:18; Start 01/13/19 at 09:00 Gabapentin (Neurontin) 800 mg DAILY PO Last administered on 01/14/19 09:18; Start 01/13/19 at 09:00 Multivitamins (Thera M Plus) 1 tab DAILY PO Last administered on 01/14/19 09:17; Start 01/13/19 at 09:00 Pantoprazole Sodium (Protonix) 40 mg DAILYAC PO Last administered on 4/24/19at 09:17; Start 01/13/19 at 09:00 Pramipexole Dihydrochloride (miraPEX) 1 mg QHS PO Last administered on 01/13/19at 21:15; Start 01/13/19 at 21:00 Clindamycin Phosphate 50 ml @ 100 mls/hr Q8HRS IV Last administered on 01/14/19at 05:27; Start 01/13/19 at 11:00 Lactobacillus Rhamnosus (Culturelle) 1 cap BID PO Last administered on 01/14/19at 09:17; Start 01/13/19 at 21:00 Active Scripts Active Hydrocodone-Apap 7.5-325 (Hydrocodone Bit/Acetaminophen) 1 Each Tablet 1 Tab PO PRN Q6HRS PRN Reported Omeprazole 40 Mg Capsule. 1 Cap PO DAILY Levothyroxine Sodium 100 Mcg Tablet 300 Mcg PO DAILY Klor-Con M20 (Potassium Chloride) 20 Meq Tab.er.prt 20 Mg PO BID Losartan Potassium 100 Mg Tablet 100 Mg PO DAILY Lasix (Furosemide) 40 Mg Tablet 80 Mg PO DAILY Proair Hfa Inhaler (Albuterol Sulfate) 8.5 Gm Hfa.aer.ad 4 Puff IH PRN Q4-6HRS B-12 (Cyanocobalamin (Vitamin B-12)) 250 Mcg Tablet 250 Mcg PO BID Calcium + D3 Er Tablet (Calcium Carb & Cit/Vitamin D3) 1 Each Tablet.er 1 Each PO DAILY Vitamin D2 (Ergocalciferol (Vitamin D2)) 50,000 Unit Capsule 50,000 Unit PO WEEKLY Mirapex (Pramipexole Di-Hcl) 0.5 Mg Tablet 1 Mg PO QHS Multivitamins With Iron 1 Each Tablet 1 Each PO DAILY Fish Oil 1,000 Mg Capsule ([place]-3 Fatty Acids/Fish Oil) 1 Each Capsule 1,000 Mg PO DAILY Symbicort 160-4.5 Mcg Inhaler (Budesonide/Formoterol Fumarate) 10.2 Gm Hfa.aer.ad 2 Puff IH BID Alprazolam 0.5 Mg Tablet 0.5 Mg PO PRN TID PRN Gabapentin 800 Mg Tablet 800 Mg PO TID Metformin Hcl 500 Mg Tablet 500 Mg PO DAILY Citalopram Hbr (Citalopram Hydrobromide) 40 Mg Tablet 40 Mg PO DAILY Metoprolol Succinate ( Xl ) (Metoprolol Succinate) 100 Mg Tab.er.24h 100 Mg PO DAILY Vitals/I & O Vital Sign - Last 24 Hours 01/13/19 01/13/19 01/13/19 01/13/19 12:03 15:38 15:51 18:29 Temp 99.1 99.1 Pulse 83 Resp 20 B/P (MAP) 89/34 (52) Pulse Ox 91 91 91 91 O2 Delivery Room Air Nasal Cannula Room Air Room Air 01/13/19 01/13/19 01/13/19 01/13/19 19:20 19:39 20:11 23:20 Temp 98.2 97.9 98.2 97.9 Pulse 84 77 Resp 20 22 B/P (MAP) 94/46 (62) 98/46 (63) Pulse Ox 92 99 92 O2 Delivery Room Air Room Air Room Air Room Air 01/14/19 01/14/19 01/14/19 01/14/19 03:15 04:19 05:19 07:25 Temp 97.8 97.9 97.8 97.9 Pulse 73 79 Resp 20 24 20 16 B/P (MAP) 94/50 (65) 116/61 (79) Pulse Ox 92 94 O2 Delivery Room Air Room Air Room Air Room Air 01/14/19 01/14/19 01/14/19 01/14/19 08:00 09:07 09:22 10:45 Temp 98.6 98.6 Pulse 79 82 Resp 14 B/P (MAP) 116/61 131/48 (75) Pulse Ox 99 87 O2 Delivery Room Air Room Air Room Air Intake and Output 01/13/19 01/13/19 01/14/19 14:59 22:59 06:59 Intake Total 550 ml 1500 ml 600 ml Output Total 1000 ml 1200 ml Balance 550 ml 500 ml -600 ml JENNYFER SEVILLA MD Jan 14, 2019 11:58
--- NOTE | 2019-01-14 12:24 | PDOC ---
Renal-Progress Notes Subjective Notes Notes NO COMPLAINTS, FEELING BETTER History of Present Illness Hx of present illness IMPROVING Vitals Vitals Vital Signs Date Time Temp Pulse Resp B/P (MAP) Pulse Ox O2 Delivery O2 Flow Rate FiO2 01/14/19 10:45 98.6 82 14 131/48 (75) 87 Room Air 98.6 Weight Weight [ ] I.O. Intake and Output Intake and Output 01/14/19 07:00 Intake Total 2650 ml Output Total 2200 ml Balance 450 ml Intake Oral 1550 ml IV Total 1100 ml Output Urine Total 2200 ml # Bowel Movements 1 Labs Labs Laboratory Tests Test 01/14/19 06:00 Sodium Level 137 mmol/L (136-145) Potassium Level 3.9 mmol/L (3.5-5.1) Chloride Level 107 mmol/L (98-107) Carbon Dioxide Level 18 mmol/L (21-32) Anion Gap 12 (6-14) Blood Urea Nitrogen 48 mg/dL (7-20) Creatinine 2.9 mg/dL (0.6-1.0) Estimated GFR (Cockcroft-Gault) 16.2 Glucose Level 108 mg/dL (70-99) Calcium Level 8.1 mg/dL (8.5-10.1) Phosphorus Level 6.4 mg/dL (2.6-4.7) Magnesium Level 2.2 mg/dL (1.8-2.4) Micro Micro Microbiology 01/13/19 Blood Culture - Preliminary, Resulted NO GROWTH AFTER 1 DAY Review of Systems Constitutional: yes: weakness, alert, oriented Ears/Nose/Throat: Yes: no symptom reported Eyes: Yes: no symptom reported Pulmonary: Yes no symptom reported Gastrointestional: Yes: diarrhea Genitourinary: Yes: no symptom reported Musculoskeletal: Yes: muscle stiffness Skin: Yes no symptom reported Psychiatric/Neurological: Yes: no symptom reported Endocrine: Yes: no symptom reported Hematologic/Lymphatic: Yes: no symptom reported Physical Exam General Appearance: no apparent distress Skin: warm Respiratory: decreased breath sounds Heart: S1S2 Abdomen: soft, bowel sounds present Genitourinary: bladder flat Extremities: pulses present Neurology: alert, oriented Musculoskeletal: Osteoarthritis, Other Assessment Assessment IMP EYAL WITH MUCH IMPROVEMENT - CR 2.9 FROM 4.5 CKD STAGE 3 WITH CR OF 1.3-1.5 EXTRACELLULAR VOLUME DEPLETION HYPOTENSION DUE TO ABOVE MORBID OBESITY LE LYMPHEDEMA ? LE CELLULITIS PLAN DECREASED IVF'S HOLD HER DIURETICS CONT HOLD K, ARB AND METFORMIN RENAL SONOGRAM WNL JEREMIAS HOBBS MD Jan 14, 2019 12:24
--- NOTE | 2019-01-14 13:54 | NUR ---
SS following up with discharge planning. PT/OT recommended senior living unit. SS met with pt to discuss senior living unit. Pt declined senior living unit. Pt reported that she was discharging to home with family. SS discussed home healthcare with pt. Pt declined home healthcare. Pt's RN notified.
[2019-01-14 14:40] VITALS: BP 96/56
[2019-01-14] MEDS: HEPARIN for SUB-Q USE 5,000 UNIT/ML VIAL. SQ SCH ×2 (15:56→21:03)
[2019-01-14 19:00] VITALS: BP 87/38
[2019-01-14] MEDS: PRAMIPEXOLE 1 MG TABLET. PO SCH (21:01)
[2019-01-14 23:00] VITALS: BP 93/51
[2019-01-15] MEDS: HYDROcodone/APAP 7.5/325MG 1 TAB TABLET PO PRN (01:23)
[2019-01-15 03:00] VITALS: BP 102/29
[2019-01-15 04:41] LABS: CALCIUM 8.8 mg/dL (8.5-10.1); CREATININE 1.9 mg/dL (0.6-1.0); GFR 26.4; PHOSPHORUS 4.5 mg/dL (2.6-4.7); POTASSIUM 4.4 mmol/L (3.5-5.1)
[2019-01-15 04:58] VITALS: BP 113/32
[2019-01-15] MEDS: LEVOTHYROXINE 100 MCG TABLET PO SCH (05:06)
[2019-01-15] MEDS: HEPARIN for SUB-Q USE 5,000 UNIT/ML VIAL. SQ SCH (05:06)
[2019-01-15 07:00] VITALS: BP 132/57
[2019-01-15] MEDS: PANTOPRAZOLE 40 MG TABLET.DR. PO SCH (07:49)
[2019-01-15] MEDS: CITALOPRAM 20 MG TABLET. PO SCH (09:16)
[2019-01-15] MEDS: CYANOCOBALAMIN (VITAMIN B-12) 100 MCG TABLET PO SCH (09:17)
[2019-01-15] MEDS: GABAPENTIN 400 MG CAPSULE. PO SCH (09:17)
[2019-01-15] MEDS: LACTOBACILLUS RHAMNOSUS GG 1 CAPSULE. PO SCH (09:17)
[2019-01-15] MEDS: OMEGA-3 FATTY ACIDS/FISH OIL 1,000 MG CAPSULE. PO SCH (09:17)
[2019-01-15] MEDS: MULTIVITAMIN with MINERAL TABLET. PO SCH (09:17)
[2019-01-15] MEDS: CALCIUM CARB/VIT D3 500/200 TABLET. PO SCH (09:18)
[2019-01-15] MEDS: METOPROLOL SUCC 24HR ER 100 MG TAB.ER.24H. PO SCH (09:18)
--- NOTE | 2019-01-15 10:35 | PDOC ---
PROGRESS NOTES Chief Complaint Chief Complaint AK I/VMN-secondary to GI loss-reports of diarrhea a few days ago none so far- check stool Obesity, BMI 52 Hypothyroidism- chronic stable Hypotension responded to IV fluids-gentle IV hydration History of chronic lymphedema, chronic CHF on Lasix 80 once a day Mild cellulitis bilateral lower extremity-maybe some clinda will not hurt PCN allergy History UTI-but none currently Hypothyroidism on Synthroid Sepsis POA with organ dysfunction namely renal failure History of Present Illness History of Present Illness Looks better and her numbers are better Creatinine down to 1.9 from 2.9 from 4 She is up in chair ESR 47 She came in with chills, No pneumonia on chest x-ray, no UTI ESR 47 she asks me what the chills are from PLAN: IVF for now-1 more day Creat 1.9 I gather by tomorrow it will normalize or will be lower than I can send home She refuses SNU or home health Avoid nephrotoxins PT OT again today monitor for further fevers, cont clinda IV for now - legs still red and somewhat swollen - IVF? to dc? - Vitals Vitals Vital Signs Date Time Temp Pulse Resp B/P (MAP) Pulse Ox O2 Delivery O2 Flow Rate FiO2 01/15/19 09:18 73 132/57 01/15/19 08:00 Room Air 01/15/19 07:00 97.8 18 93 97.8 01/14/19 19:18 2.0 Physical Exam General: Alert, Oriented X3, Cooperative, No acute distress Heart: Regular rate, Normal S1, Normal S2, No murmurs Lungs: Clear, Wheezing Abdomen: Normal bowel sounds, Soft, No tenderness, No hepatosplenomegaly Extremities: Other (2+ EDEMA) Skin: No rashes, No breakdown, No significant lesion Labs LABS Laboratory Tests Test 01/15/19 04:00 Sodium Level 141 mmol/L (136-145) Potassium Level 4.4 mmol/L (3.5-5.1) Chloride Level 109 mmol/L (98-107) Carbon Dioxide Level 19 mmol/L (21-32) Anion Gap 13 (6-14) Blood Urea Nitrogen 36 mg/dL (7-20) Creatinine 1.9 mg/dL (0.6-1.0) Estimated GFR (Cockcroft-Gault) 26.4 Glucose Level 105 mg/dL (70-99) Calcium Level 8.8 mg/dL (8.5-10.1) Phosphorus Level 4.5 mg/dL (2.6-4.7) Magnesium Level 2.0 mg/dL (1.8-2.4) Procalcitonin < 0.10 ng/mL (0.00-0.10) Review of Systems Review of Systems A 14 point ROS was completed with the following noted as positive: Other systems reviewed and negative. \CONSTITUTIONAL: No fever or chills EYES: No recent changes SKIN: No rash or itching CARDIOVASCULAR: No chest pain, syncope, palpitations, or edema RESPIRATORY: No SOB or cough GASTROINTESTINAL: No nausea, vomiting or abdominal pain NEUROLOGICAL: No headaches or weakness ENDOCRINE: No cold or heat intolerance GENITOURINARY: No urgency or frequency of urination MUSCULOSKELETAL: No back pain or joint pain LYMPHATICS: No enlarged lymph nodes PSYCHIATRIC: No anxiety or depression Assessment and Plan Assessmemt and Plan Problems Medical Problems: (1) Acute renal failure Status: Acute Comment Review of Relevant I have reviewed the following items mikael (where applicable) has been applied. Labs Laboratory Tests Test 01/13/19 11:15 01/14/19 06:00 01/15/19 04:00 Erythrocyte Sedimentation Rate 47 (0-25) Sodium Level 137 mmol/L (136-145) 141 mmol/L (136-145) Potassium Level 3.9 mmol/L (3.5-5.1) 4.4 mmol/L (3.5-5.1) Chloride Level 107 mmol/L (98-107) 109 mmol/L (98-107) Carbon Dioxide Level 18 mmol/L (21-32) 19 mmol/L (21-32) Anion Gap 12 (6-14) 13 (6-14) Blood Urea Nitrogen 48 mg/dL (7-20) 36 mg/dL (7-20) Creatinine 2.9 mg/dL (0.6-1.0) 1.9 mg/dL (0.6-1.0) Estimated GFR (Cockcroft-Gault) 16.2 26.4 Glucose Level 108 mg/dL (70-99) 105 mg/dL (70-99) Calcium Level 8.1 mg/dL (8.5-10.1) 8.8 mg/dL (8.5-10.1) Phosphorus Level 6.4 mg/dL (2.6-4.7) 4.5 mg/dL (2.6-4.7) Magnesium Level 2.2 mg/dL (1.8-2.4) 2.0 mg/dL (1.8-2.4) Procalcitonin < 0.10 ng/mL (0.00-0.10) Laboratory Tests Test 01/15/19 04:00 Sodium Level 141 mmol/L (136-145) Potassium Level 4.4 mmol/L (3.5-5.1) Chloride Level 109 mmol/L (98-107) Carbon Dioxide Level 19 mmol/L (21-32) Anion Gap 13 (6-14) Blood Urea Nitrogen 36 mg/dL (7-20) Creatinine 1.9 mg/dL (0.6-1.0) Estimated GFR (Cockcroft-Gault) 26.4 Glucose Level 105 mg/dL (70-99) Calcium Level 8.8 mg/dL (8.5-10.1) Phosphorus Level 4.5 mg/dL (2.6-4.7) Magnesium Level 2.0 mg/dL (1.8-2.4) Procalcitonin < 0.10 ng/mL (0.00-0.10) Microbiology 01/13/19 Blood Culture - Preliminary, Resulted NO GROWTH AFTER 2 DAYS Medications Current Medications Sodium Chloride 1,000 ml @ 1,000 mls/hr 1X ONCE IV Last administered on 01/13/19at 00:30; Start 01/13/19 at 00:30; Stop 01/13/19 at 01:29; Status DC Sodium Chloride 1,000 ml @ 1,000 mls/hr 1X ONCE IV Last administered on 01/13/19at 00:30; Start 01/13/19 at 00:30; Stop 01/13/19 at 01:29; Status DC Ertapenem 50 ml @ 100 mls/hr 1X ONCE IV Last administered on 01/13/19at 01:11; Start 01/13/19 at 01:00; Stop 01/13/19 at 01:29; Status DC Vancomycin HCl (Vanco Per Pharmacy) 1 each PRN DAILY PRN MC SEE COMMENTS Last administered on 01/13/19at 02:51; Start 01/13/19 at 01:00; Stop 01/13/19 at 10:34; Status DC Sodium Chloride 1,000 ml @ 1,380 mls/hr Q44M IV Last administered on 01/13/19at 01:00; Start 01/13/19 at 01:00; Stop 01/13/19 at 01:59; Status DC Vancomycin HCl 2 gm/Sodium Chloride 500 ml @ 250 mls/hr 1X ONCE IV Last administered on 01/13/19at 01:11; Start 01/13/19 at 01:00; Stop 01/13/19 at 02:59; Status DC Sodium Chloride 1,000 ml @ 125 mls/hr Q8H IV Last administered on 01/13/19at 21:16; Start 01/13/19 at 03:15; Stop 01/14/19 at 03:14; Status DC Loperamide HCl (Imodium) 2 mg PRN Q15MIN PRN PO DIARRHEA; Start 01/13/19 at 08:15 Acetaminophen/ Codeine Phosphate (Tylenol #3) 1 tab PRN Q6HRS PRN PO PAIN MILD; Start 01/13/19 at 08:15 Acetaminophen (Tylenol) 500 mg PRN Q6HRS PRN PO HEADACHE / TEMP; Start 01/13/19 at 08:15 Ondansetron HCl (Zofran) 4 mg PRN Q6HRS PRN IV NAUSEA/VOMITING; Start 01/13/19 at 08:15 Ondansetron HCl (Zofran Odt) 4 mg PRN Q6HRS PRN PO NAUSEA/VOMITING; Start 01/13/19 at 08:15 Albuterol Sulfate (Ventolin Neb Soln) 2.5 mg RTQID NEB Last administered on 01/14/19at 19:15; Start 01/13/19 at 09:00 Alprazolam (Xanax) 0.5 mg PRN TID PRN PO ANXIETY / AGITATION Last administered on 01/14/19at 00:21; Start 01/13/19 at 08:15 Ergocalciferol (Vitamin D2) 50,000 unit WEEKLY PO Last administered on 01/14/19at 09:16; Start 01/14/19 at 09:00 Acetaminophen/ Hydrocodone Bitart (Lortab 7.5/325) 1 tab PRN Q6HRS PRN PO MODERATE TO SEVERE PAIN Last administered on 01/15/19 01:23; Start 01/13/19 at 08:15 Levothyroxine Sodium (Synthroid) 300 mcg DAILY07 PO Last administered on 01/15/19 05:06; Start 01/13/19 at 09:00 Metoprolol Succinate (Toprol Xl) 100 mg DAILY PO Last administered on 01/15/19 09:18; Start 01/13/19 at 09:00 Fish Oil (Fish Oil) 1,000 mg DAILY PO Last administered on 01/15/19 09:17; Start 01/13/19 at 09:00 Budesonide (Pulmicort) 0.5 mg RTBID NEB Last administered on 01/14/19 19:15; Start 01/13/19 at 20:00 Calcium/Vitamin D (Oscal D 500mg/ 200uts) 1 tab DAILY PO Last administered on 01/15/19 09:18; Start 01/13/19 at 09:00 Citalopram Hydrobromide (CeleXA) 40 mg DAILY PO Last administered on 01/15/19 09:16; Start 01/13/19 at 09:00 Cyanocobalamin (Vitamin B-12) 250 mcg BID PO Last administered on 01/15/19 09:17; Start 01/13/19 at 09:00 Gabapentin (Neurontin) 800 mg DAILY PO Last administered on 01/15/19 09:17; Start 01/13/19 at 09:00; Stop 01/15/19 at 10:15; Status DC Multivitamins (Thera M Plus) 1 tab DAILY PO Last administered on 01/15/19 09:17; Start 01/13/19 at 09:00 Pantoprazole Sodium (Protonix) 40 mg DAILYAC PO Last administered on 01/15/19 07:49; Start 01/13/19 at 09:00 Pramipexole Dihydrochloride (miraPEX) 1 mg QHS PO Last administered on 01/14/19 21:01; Start 01/13/19 at 21:00 Clindamycin Phosphate 50 ml @ 100 mls/hr Q8HRS IV Last administered on 01/14/19 05:27; Start 01/13/19 at 11:00; Stop 01/14/19 at 11:58; Status DC Lactobacillus Rhamnosus (Culturelle) 1 cap BID PO Last administered on 01/15/19at 09:17; Start 01/13/19 at 21:00 Heparin Sodium (Porcine) (Heparin Sodium) 5,000 unit Q8HRS SQ Last administered on 01/15/19at 05:06; Start 01/14/19 at 15:00 Gabapentin (Neurontin) 800 mg BID PO ; Start 01/15/19 at 21:00 Clindamycin Phosphate 50 ml @ 100 mls/hr Q8HRS IV ; Start 01/15/19 at 14:00; Status UNV Active Scripts Active Hydrocodone-Apap 7.5-325 (Hydrocodone Bit/Acetaminophen) 1 Each Tablet 1 Tab PO PRN Q6HRS PRN Reported Omeprazole 40 Mg Capsule. 1 Cap PO DAILY Levothyroxine Sodium 100 Mcg Tablet 300 Mcg PO DAILY Klor-Con M20 (Potassium Chloride) 20 Meq Tab.er.prt 20 Mg PO BID Losartan Potassium 100 Mg Tablet 100 Mg PO DAILY Lasix (Furosemide) 40 Mg Tablet 80 Mg PO DAILY Proair Hfa Inhaler (Albuterol Sulfate) 8.5 Gm Hfa.aer.ad 4 Puff IH PRN Q4-6HRS B-12 (Cyanocobalamin (Vitamin B-12)) 250 Mcg Tablet 250 Mcg PO BID Calcium + D3 Er Tablet (Calcium Carb & Cit/Vitamin D3) 1 Each Tablet.er 1 Each PO DAILY Vitamin D2 (Ergocalciferol (Vitamin D2)) 50,000 Unit Capsule 50,000 Unit PO WEEKLY Mirapex (Pramipexole Di-Hcl) 0.5 Mg Tablet 1 Mg PO QHS Multivitamins With Iron 1 Each Tablet 1 Each PO DAILY Fish Oil 1,000 Mg Capsule ([place]-3 Fatty Acids/Fish Oil) 1 Each Capsule 1,000 Mg PO DAILY Symbicort 160-4.5 Mcg Inhaler (Budesonide/Formoterol Fumarate) 10.2 Gm Hfa.aer.ad 2 Puff IH BID Alprazolam 0.5 Mg Tablet 0.5 Mg PO PRN TID PRN Gabapentin 800 Mg Tablet 800 Mg PO TID Metformin Hcl 500 Mg Tablet 500 Mg PO DAILY Citalopram Hbr (Citalopram Hydrobromide) 40 Mg Tablet 40 Mg PO DAILY Metoprolol Succinate ( Xl ) (Metoprolol Succinate) 100 Mg Tab.er.24h 100 Mg PO DAILY Vitals/I & O Vital Sign - Last 24 Hours 01/14/19 01/14/19 01/14/19 01/14/19 10:45 13:10 13:50 14:40 Temp 98.6 97.7 98.6 97.7 Pulse 82 78 Resp 14 15 16 B/P (MAP) 131/48 (75) 96/56 (69) Pulse Ox 87 87 97 O2 Delivery Room Air Room Air Room Air Nasal Cannula 01/14/19 01/14/19 01/14/19 01/14/19 14:55 16:33 19:00 19:12 Temp 97.6 97.6 Pulse 73 Resp 14 B/P (MAP) 87/38 (54) Pulse Ox 97 96 O2 Delivery Room Air Nasal Cannula Room Air Room Air O2 Flow Rate 2.0 01/14/19 01/14/19 01/15/19 01/15/19 19:18 23:00 01:23 02:33 Temp 98.1 98.1 Pulse 66 Resp 14 18 20 B/P (MAP) 93/51 (65) Pulse Ox 95 95 O2 Delivery Nasal Cannula o2 2L prn Room Air O2 Flow Rate 2.0 01/15/19 01/15/19 01/15/19 01/15/19 03:00 04:58 07:00 08:00 Temp 98.2 97.8 98.2 97.8 Pulse 63 73 Resp 22 18 B/P (MAP) 102/29 (53) 113/32 (59) 132/57 (82) Pulse Ox 91 93 93 O2 Delivery Nasal Cannula Room Air Room Air Room Air 01/15/19 09:18 Pulse 73 B/P (MAP) 132/57 Intake and Output 01/14/19 01/14/19 01/15/19 15:00 23:00 07:00 Intake Total 200 ml 0 ml 600 ml Output Total 1100 ml 1050 ml Balance 200 ml -1100 ml -450 ml JENNYFER SEVILLA MD Jan 15, 2019 10:35
[2019-01-15] MEDS ORDERED: CLIN300C8 PO (10:42)
[2019-01-15 10:46] VITALS: BP 124/53
--- NOTE | 2019-01-15 10:46 | PDOC3 ---
Discharge Summary Visit Information Date of Admission: Jan 13, 2019 Date of Discharge: Jan 15, 2019 Admitting Diagnosis Comment: AK I/VMN-secondary to GI loss-reports of diarrhea a few days ago none so far- check stool Obesity, BMI 52 Hypothyroidism- chronic stable Hypotension responded to IV fluids-gentle IV hydration History of chronic lymphedema, chronic CHF on Lasix 80 once a day Mild cellulitis bilateral lower extremity-maybe some clinda will not hurt PCN allergy History UTI-but none currently Hypothyroidism on Synthroid Sepsis POA with organ dysfunction namely renal failure Final Diagnosis Problems Medical Problems: (1) Acute renal failure Status: Acute Brief Hospital Course Allergies Allergies Coded Allergies Type Severity Reaction Last Updated Verified amoxicillin trihydrate Allergy Intermediate 03/20/18 Yes celecoxib Allergy Intermediate 10/15/14 Yes potassium clavulanate Allergy Intermediate 10/15/14 Yes I S O L A T I O N *CONTACT* Allergy Unknown 02/11/15 Yes Vital Signs Vital Signs Date Time Temp Pulse Resp B/P (MAP) Pulse Ox O2 Delivery O2 Flow Rate FiO2 01/15/19 09:18 73 132/57 01/15/19 08:00 Room Air 01/15/19 07:00 97.8 18 93 97.8 01/14/19 19:18 2.0 Lab Results Laboratory Tests Test 01/13/19 11:15 01/14/19 06:00 01/15/19 04:00 Erythrocyte Sedimentation Rate 47 (0-25) Sodium Level 137 mmol/L (136-145) 141 mmol/L (136-145) Potassium Level 3.9 mmol/L (3.5-5.1) 4.4 mmol/L (3.5-5.1) Chloride Level 107 mmol/L (98-107) 109 mmol/L (98-107) Carbon Dioxide Level 18 mmol/L (21-32) 19 mmol/L (21-32) Anion Gap 12 (6-14) 13 (6-14) Blood Urea Nitrogen 48 mg/dL (7-20) 36 mg/dL (7-20) Creatinine 2.9 mg/dL (0.6-1.0) 1.9 mg/dL (0.6-1.0) Estimated GFR (Cockcroft-Gault) 16.2 26.4 Glucose Level 108 mg/dL (70-99) 105 mg/dL (70-99) Calcium Level 8.1 mg/dL (8.5-10.1) 8.8 mg/dL (8.5-10.1) Phosphorus Level 6.4 mg/dL (2.6-4.7) 4.5 mg/dL (2.6-4.7) Magnesium Level 2.2 mg/dL (1.8-2.4) 2.0 mg/dL (1.8-2.4) Procalcitonin < 0.10 ng/mL (0.00-0.10) Laboratory Tests Test 01/15/19 04:00 Sodium Level 141 mmol/L (136-145) Potassium Level 4.4 mmol/L (3.5-5.1) Chloride Level 109 mmol/L (98-107) Carbon Dioxide Level 19 mmol/L (21-32) Anion Gap 13 (6-14) Blood Urea Nitrogen 36 mg/dL (7-20) Creatinine 1.9 mg/dL (0.6-1.0) Estimated GFR (Cockcroft-Gault) 26.4 Glucose Level 105 mg/dL (70-99) Calcium Level 8.8 mg/dL (8.5-10.1) Phosphorus Level 4.5 mg/dL (2.6-4.7) Magnesium Level 2.0 mg/dL (1.8-2.4) Procalcitonin < 0.10 ng/mL (0.00-0.10) Brief Hospital Course Ms. Sanders is a 68 old obese white female history of chronic lymphedema admitted because of AK I with a creatinine of 4 on admission. She was having diarrhea. Hypotensive responsive to IV fluids at ER. Clearly this was all GI loss VMN type of AK I. With hydration her creatinine came down to 1.9 on discharge. She is starting to get swollen in her legs. ESR is 47, some fever or chills but with negative UA and negative chest x-ray. She does have some element of cellulitis bilateral legs. She has penicillin allergy which causes diarrhea. She was tolerating the clindamycin fine. No more IVF per renal, again starting legs to get swollen We were holding metformin losartan and Lasix. I did instruct her to follow-up PCP 2 weeks time with a repeat BMP 1 week time. Continue to hold losartan Lasix and metformin to home She is refusing skilled and home health despite recommendations of PT and social work DC time 35 minutes, 2 Notes today, 2 visits today BMP request slip i have provided Discharge Information Condition at Discharge: Improved, Stable Follow Up: Weeks (2 weeks PCP with rpt BMP results) Disposition/Orders: D/C to Home Scheduled Albuterol Sulfate (Proair Hfa Inhaler) 8.5 Gm Hfa.aer.ad, 4 PUFF IH PRN Q4-6HRS, #1 (Reported) Entered as Reported by: ROE MEI RPH on 11/21/15 1243 Last Action: Continued on 01/13/19814 by JENNYFER SEVILLA Budesonide/Formoterol Fumarate (Symbicort 160-4.5 Mcg Inhaler) 10.2 Gm Hfa.aer.ad, 2 PUFF IH BID, (Reported) Entered as Reported by: LORNA ZHOU on 10/03/13 0751 Last Action: Converted on 01/13/19814 by JENNYFER SEIVLLA Calcium Carb & Cit/Vitamin D3 (Calcium + D3 Er Tablet) 1 Each Tablet.er, 1 EACH PO DAILY, (Reported) Entered as Reported by: ROE MEI RPH on 11/21/15 1110 Last Action: Converted on 01/13/19814 by JENNYFER SEVILLA Citalopram Hydrobromide (Citalopram Hbr) 40 Mg Tablet, 40 MG PO DAILY, (Reported) Entered as Reported by: LORNA ZHOU on 10/03/13 0751 Last Action: Converted on 01/13/19814 by JENNYFER SEVILLA Clindamycin Hcl (Clindamycin Hcl) 300 Mg Capsule, 300 MG PO QID for cellulitsi legs for 7 Days, #28 Prescribed by: JENNYFER SEVILLA on 01/15/19 1042 Cyanocobalamin (Vitamin B-12) (B-12) 250 Mcg Tablet, 250 MCG PO BID, (Reported) Entered as Reported by: ROE MEI RPH on 11/21/15 1110 Last Action: Converted on 01/13/19814 by JENNYFER SEVILLA Ergocalciferol (Vitamin D2) (Vitamin D2) 50,000 Unit Capsule, 50,000 UNIT PO WEEKLY, (Reported) Entered as Reported by: ROE MEI RPH on 11/21/15 1101 Last Action: Continued on 01/13/19814 by JENNYFER SEVILLA Furosemide (Lasix) 40 Mg Tablet, 80 MG PO DAILY for , #90 Ref 1 (Reported) Entered as Reported by: Heidy Luna on 06/18/16 1034 Last Action: HELD on 01/13/19814 by JENNYFER SEVILLA Gabapentin (Gabapentin) 800 Mg Tablet, 800 MG PO TID, (Reported) Entered as Reported by: LORNA ZHOU on 10/03/13 0751 Last Action: Converted on 01/13/19814 by JENNYFER SEVILLA Levothyroxine Sodium (Levothyroxine Sodium) 100 Mcg Tablet, 300 MCG PO DAILY for , #30 Ref 5 (Reported) Entered as Reported by: CORI RAMOS on 03/20/18 1446 Last Action: Continued on 01/13/19814 by JENNYFER SEVILLA Losartan Potassium (Losartan Potassium) 100 Mg Tablet, 100 MG PO DAILY, (Reported) Entered as Reported by: Heidy Luna on 06/18/16 1034 Last Action: HELD on 01/13/19814 by JENNYFER SEVILLA Metformin Hcl (Metformin Hcl) 500 Mg Tablet, 500 MG PO DAILY, (Reported) Entered as Reported by: LORNA ZHOU on 10/03/13 075 Last Action: HELD on 01/13/19814 by JENNYFER SEVILLA Metoprolol Succinate (Metoprolol Succinate ( Xl )) 100 Mg Tab.er.24h, 100 MG PO DAILY, (Reported) Entered as Reported by: LORNA ZHOU on 10/03/13 075 Last Action: Continued on 01/13/19814 by JENNYFER SEVILLA Multivitamins With Iron (Multivitamins With Iron) 1 Each Tablet, 1 EACH PO DAILY, (Reported) Entered as Reported by: LORNA ZHOU on 10/03/13 075 Last Action: Converted on 01/13/19814 by JENNYFER SEVILLA [place]-3 Fatty Acids/Fish Oil (Fish Oil 1,000 Mg Capsule) 1 Each Capsule, 1,000 MG PO DAILY, (Reported) Entered as Reported by: LORNA ZHOU on 10/03/13 0751 Last Action: Continued on 01/13/19814 by JENNYFER SEVILLA Omeprazole (Omeprazole) 40 Mg Capsule.dr, 1 CAP PO DAILY, #30 Ref 3 (Reported) Entered as Reported by: LEO REINA on 04/10/18527 Last Action: Converted on 01/13/19814 by JENNYFER SEVILLA Potassium Chloride (Klor-Con M20) 20 Meq Tab.er.prt, 20 MG PO BID for , #30 Ref 5 (Reported) Entered as Reported by: Heidy Luna on 06/18/16 1034 Last Action: HELD on 01/13/19814 by JENNYFER SEVILLA Pramipexole Di-Hcl (Mirapex) 0.5 Mg Tablet, 1 MG PO QHS, (Reported) Entered as Reported by: GIL RENNER on 11/20/132146 Last Action: Converted on 01/13/19814 by JENNYFER SEVILLA Scheduled PRN Alprazolam (Alprazolam) 0.5 Mg Tablet, 0.5 MG PO PRN TID PRN for ANXIETY / AGIT ATION, (Reported) Entered as Reported by: LORNA ZHOU on 10/03/13 0751 Last Action: Continued on 01/13/19814 by JENNYFER SEVILLA Hydrocodone Bit/Acetaminophen (Hydrocodone-Apap 7.5-325 ) 1 Each Tablet, 1 TAB PO PRN Q6HRS PRN for PAIN, #30 Ref 0 Prescribed by: NNAMDI SHELLEY on 04/11/18 0947 Last Action: Continued on 01/13/19814 by JENNYFER WEINSTEIN MD Jan 15, 2019 10:46
[2019-01-15] MEDS ORDERED: CLINDAMYCIN 600MG PREMIX 50 ML IV SCH (11:00)
--- NOTE | 2019-01-15 11:25 | NUR ---
March catheter discontinued per protocol without trauma at 1100. Patient has since been to [facility] and states void without difficulty and emptied bladder. See orders. Patient verb. understanding POC.
--- NOTE | 2019-01-15 11:27 | PDOC ---
Renal-Progress Notes Subjective Notes Notes FEELING BETTER History of Present Illness Hx of present illness IMPROVED Vitals Vitals Vital Signs Date Time Temp Pulse Resp B/P (MAP) Pulse Ox O2 Delivery O2 Flow Rate FiO2 01/15/19 10:46 97.6 82 18 124/53 (76) 94 Room Air 97.6 01/14/19 19:18 2.0 Weight Weight [ ] I.O. Intake and Output Intake and Output 01/15/19 07:00 Intake Total 800 ml Output Total 2150 ml Balance -1350 ml Intake Oral 800 ml Output Urine Total 2150 ml Labs Labs Laboratory Tests Test 01/15/19 04:00 Sodium Level 141 mmol/L (136-145) Potassium Level 4.4 mmol/L (3.5-5.1) Chloride Level 109 mmol/L (98-107) Carbon Dioxide Level 19 mmol/L (21-32) Anion Gap 13 (6-14) Blood Urea Nitrogen 36 mg/dL (7-20) Creatinine 1.9 mg/dL (0.6-1.0) Estimated GFR (Cockcroft-Gault) 26.4 Glucose Level 105 mg/dL (70-99) Calcium Level 8.8 mg/dL (8.5-10.1) Phosphorus Level 4.5 mg/dL (2.6-4.7) Magnesium Level 2.0 mg/dL (1.8-2.4) Procalcitonin < 0.10 ng/mL (0.00-0.10) Micro Micro Microbiology 01/13/19 Blood Culture - Preliminary, Resulted NO GROWTH AFTER 2 DAYS Review of Systems Constitutional: yes: weakness, alert, oriented Ears/Nose/Throat: Yes: no symptom reported Eyes: Yes: no symptom reported Pulmonary: Yes no symptom reported Gastrointestional: Yes: diarrhea Genitourinary: Yes: no symptom reported Musculoskeletal: Yes: muscle stiffness Skin: Yes no symptom reported Psychiatric/Neurological: Yes: no symptom reported Endocrine: Yes: no symptom reported Hematologic/Lymphatic: Yes: no symptom reported Physical Exam General Appearance: no apparent distress Skin: warm Respiratory: decreased breath sounds Heart: S1S2 Abdomen: soft, bowel sounds present Genitourinary: bladder flat Extremities: pulses present Neurology: alert, oriented Musculoskeletal: Osteoarthritis, Other Assessment Assessment IMP EYAL NEARLY RESOLVED WITH CR OF 1.9 CKD STAGE 3 WITH CR OF 1.3-1.5 EXTRACELLULAR VOLUME DEPLETION HYPOTENSION DUE TO ABOVE MORBID OBESITY LE LYMPHEDEMA ? LE CELLULITIS PLAN D/C PLANS NOTED ENC PO FLUIDS FOR NOW OP F/U JEREMIAS HOBBS MD Jan 15, 2019 11:26
--- NOTE | 2019-01-15 12:24 | NUR ---
Discharge instructions, medications and prescriptions reviewed with patient. She verb. understanding all instructions and prescriptions. Patient discharge to home with son with all belongings, instructions and prescriptions.
[2019-01-15] MEDS ORDERED: GABAPENTIN 400 MG CAPSULE. PO SCH (21:00)
== END 2019-01-15 12:28 | disposition home or self-care (01) | DRG 871 ==
LOC: ER 22:47 → 2 NORTH 01-13 03:00
PROVIDERS: ADMIT Internal Medicine; ATTEND Internal Medicine
DX: A41.9 Sepsis, unspecified organism (principal); N17.0 Acute kidney failure with tubular necrosis; Z68.43 Body mass index [BMI] 50.0-59.9, adult; L03.115 Cellulitis of right lower limb; L03.116 Cellulitis of left lower limb; I13.0 Hypertensive heart and chronic kidney disease with heart failure and stage 1 through stage 4 chronic kidney disease, or unspecified chronic kidney disease; M19.90 Unspecified osteoarthritis, unspecified site; F41.9 Anxiety disorder, unspecified; E66.01 Morbid (severe) obesity due to excess calories; J44.9 Chronic obstructive pulmonary disease, unspecified; K21.9 Gastro-esophageal reflux disease without esophagitis; F32.9 Major depressive disorder, single episode, unspecified; E03.9 Hypothyroidism, unspecified; I89.0 Lymphedema, not elsewhere classified; I50.9 Heart failure, unspecified; R65.20 Severe sepsis without septic shock; E11.22 Type 2 diabetes mellitus with diabetic chronic kidney disease; E11.40 Type 2 diabetes mellitus with diabetic neuropathy, unspecified; N18.3 Chronic kidney disease, stage 3 (moderate); E86.9 Volume depletion, unspecified; Z90.710 Acquired absence of both cervix and uterus; Z88.0 Allergy status to penicillin; Z88.8 Allergy status to other drugs, medicaments and biological substances; Z91.041 Radiographic dye allergy status; Z87.440 Personal history of urinary (tract) infections; Z83.3 Family history of diabetes mellitus; Z82.49 Family history of ischemic heart disease and other diseases of the circulatory system
CPT/HCPCS: 36415; 71045; 76770; 80048; 80053; 81001; 83605; 83735; 83880; 84100; 84145; 84484; 85025; 85610; 85651; 87040; 87045; 87641; 93005; 94640; 94760; 96361; 96365; 96366; J1335; J1644; J3370; J3490; J7030; J7040; J7613; J7626; 97110; 97116; 99285-25

== ENCOUNTER → 2019-08-04 | Outpatient (CLI) | payer MEDICARE, MEDICAID ==
[~2019-08-04] MED LIST changes: +ALEN70TA6 PO; +ASPI-630 PO; +CALC500T54 PO; +CLIN300C8 PO; +DICL100G18 TP; +DOCU-109 PO; +FAMO20TA5 PO; +FURO80TA3 PO; +LOSA-73 PO; +OMEP40CA45 PO; -OMEP40CA5 PO; +POTA20TA82 PO; +PROM25TA10 PO; +PSYL0.5215 PO
--- NOTE | 2019-08-05 16:33 | CARD ---
MR#: [id number] Date of Study: 08/04/2019 Ordering Physician: SAMAN QUINTEROS, Referring Physician: SAMAN QUINTEROS, Tech: Neema Woods MAURI APPROVED REPORT EXAM: Two-dimensional and M-mode echocardiogram with Doppler and color Doppler. Other Information Quality : Fair Technically limited study due to body habitus. INDICATION Murmur 2D DIMENSIONS Left Atrium(2D)3.0 (1.6-4.0cm)IVSd1.0 (0.7-1.1cm) Aortic Root(2D)2.8 (2.0-3.7cm)LVDd5.3 (3.9-5.9cm) LVOT Diameter2.0 (1.8-2.4cm)PWd0.9 (0.7-1.1cm) LVDs3.1 (2.5-4.0cm)FS (%) 30.0 % SV96.5 mlLVEF(%)60.0 (>50%) Aortic Valve AoV Peak Kavon.221.2cm/sAoV VTI42.9cm AO Peak GR.19.6mmHgLVOT Peak Kavon.134.7cm/s LVOT VTI 27.89cmAO Mean GR.11mmHg ARVIN (VMAX)1.95cc0QFM (VTI)2.06cm2 Mitral Valve MV E Djkngyrf202.5cm/sMV DECEL JKCO466gn MV A Uvevgwgj15.5cm/sMV HLA81hd E/A Ratio1.4MVA (PHT)3.30cm2 TDI E/Lateral E'13.4E/Medial E'16.5 Tricuspid Valve TR P. Nevdxsmy554mh/sRAP [id number] TR Peak Gr.20drIeFRSL42ffHq Pulmonary Vein S1 Bylwjaat59.1cm/sD2 Gunwmiqm43.1cm/s LEFT VENTRICLE The left ventricle is normal size. There is mild concentric left ventricular hypertrophy. The left ve ntricular systolic function is normal and the ejection fraction is within normal range. The Ejection Fraction is 55-60%. There is normal LV segmental wall motion. Transmitral Doppler flow pattern is Gra de II-pseudonormal filling dynamics. RIGHT VENTRICLE The right ventricle is normal size. The right ventricular systolic function is normal. ATRIA The left atrium size is normal. The right atrium size is normal. The interatrial septum is intact wit h no evidence for an atrial septal defect or patent foramen ovale as noted on 2-D or Doppler imaging. AORTIC VALVE The aortic valve is not well visualized but appears to be functioning normally by Doppler interrogati on. Doppler and Color Flow revealed no significant aortic regurgitation. There is no significant aort ic valvular stenosis. MITRAL VALVE The mitral valve is calcified but opens well. There is no evidence of mitral valve prolapse. There is no mitral valve stenosis. Doppler and Color Flow revealed no mitral valve regurgitation noted. TRICUSPID VALVE The tricuspid valve is normal in structure and function. Doppler and Color Flow revealed trace to mil d tricuspid regurgitation. The PA pressure was estimated at 25 mmHg. There is no tricuspid valve sten osis. PULMONIC VALVE The pulmonic valve is not well visualized. Doppler and Color Flow revealed no pulmonic valvular regur gitation. There is no pulmonic valvular stenosis. GREAT VESSELS The aortic root is normal in size. The ascending aorta is not well seen. The IVC is normal in size an d collapses >50% with inspiration. PERICARDIAL EFFUSION There is no evidence of significant pericardial effusion. Critical Notification Critical Value: No <Conclusion> The left ventricular systolic function is normal and the ejection fraction is within normal range. Th e Ejection Fraction is 55-60%. There is normal LV segmental wall motion. Technically difficult study Signed by : Kaleb Hutson, Electronically Approved : 08/04/2019 16:36:48
== END ==
LOC: ECHO 13:44
PROVIDERS: ATTEND Internal Medicine Cardiovascular Disease
DX: I08.1 Rheumatic disorders of both mitral and tricuspid valves (principal); I13.10 Hypertensive heart and chronic kidney disease without heart failure, with stage 1 through stage 4 chronic kidney disease, or unspecified chronic kidney disease; I50.9 Heart failure, unspecified; E11.22 Type 2 diabetes mellitus with diabetic chronic kidney disease; N18.3 Chronic kidney disease, stage 3 (moderate)
CPT/HCPCS: 93306

== ENCOUNTER 2019-09-15 03:28 | Emergency (ER) | payer MEDICARE, MEDICAID ==
[~2019-09-15] VITALS: Ht 154.9 cm; Wt 123.8 kg
[~2019-09-15 03:28] MED LIST changes: -POTA20TA82 PO
[2019-09-15 04:21] LABS: BASO % 0 % (0-3); EOS # 0.1 x10^3/uL (0.0-0.7); EOS % 1 % (0-3); HEMATOCRIT 32.5 % (36.0-47.0); HEMOGLOBIN 10.1 g/dL (12.0-15.5); LYMPH # 1.5 x10^3/uL (1.0-4.8); LYMPH % 19 % (24-48); MEAN CORPUSCULAR HEMOGLOBIN 29 pg (25-35); MEAN CORPUSCULAR HGB CONC 31 g/dL (31-37); MEAN CORPUSCULAR VOLUME 94 fL (79-100); MONO # 0.6 x10^3/uL (0.0-1.1); MONO % 7 % (0-9); NEUT # 5.8 x10^3/uL (1.8-7.7); NEUT % 73 % (31-73); PLATELET COUNT 170 x10^3/uL (140-400); RED BLOOD COUNT 3.45 x10^6/uL (3.50-5.40)
--- NOTE | 2019-09-15 04:22 | PHYS DOC ---
Past Medical History Past Medical History: Anxiety, Asthma, Hypertension, Hypothyroid, UTI, Other Additional Past Medical Histor: WEARS CPAP @ NOC Past Surgical History: , Hysterectomy, Tubal ligation Additional Past Surgical Histo: wrist, knee scope, rt carpqal tunnel Alcohol Use: None Drug Use: None Adult General Chief Complaint Chief Complaint: WEAKNESS/GENERALIZED HPI HPI Patient is a 69 year old ffemale history of asthma who presents with multiple medical complaints. Patient reports cough nasal congestion, rhinorrhea, body aches chills and generalized fatigue since yesterday morning. Difficulty getting out of bed this morning. No reported fever, nausea, vomiting or abdominal pain. Reports chronic peripheral edema. No urinary frequency urgency or burning. No reports, History of frequent urinary tract infections. No other acute symptoms or complaints. [] Review of Systems Review of Systems Review symptoms as per history of present illness. All other review symptoms are negative. All other systems were reviewed and found to be within normal limits, except as documented in this note. Current Medications Current Medications Current Medications Medications (Trade) Dose Ordered Sig/Doris Start Time Stop Time Status Last Admin Dose Admin Acetaminophen/ Hydrocodone Bitart (Lortab 5/325) 1 tab 1X ONCE 09/15/19 05:30 09/15/19 05:31 DC 09/15/19 05:25 1 TAB Ceftriaxone Sodium (Rocephin) 1 gm 1X ONCE 09/15/19 05:30 09/15/19 05:31 DC 09/15/19 05:25 1 GM Ketorolac Tromethamine (Toradol 15mg Vial) 15 mg 1X ONCE 09/15/19 04:30 09/15/19 04:31 DC 09/15/19 04:41 15 MG Sodium Chloride 1,000 ml @ 1,000 mls/hr 1X ONCE 09/15/19 04:30 09/15/19 05:29 DC 09/15/19 04:41 1,000 MLS/HR Allergies Allergies Allergies Coded Allergies Type Severity Reaction Last Updated Verified amoxicillin trihydrate Allergy Intermediate 03/20/18 Yes celecoxib Allergy Intermediate 10/15/14 Yes potassium clavulanate Allergy Intermediate 10/15/14 Yes I S O L A T I O N *CONTACT* Allergy Unknown 02/11/15 Yes Physical Exam Physical Exam Constitutional: Well developed, generally weak and fatigued appearing. [] HENT: Normocephalic, atraumatic, bilateral external ears normal, oropharynx m oist, nose normal. [] Eyes: PERRLA, EOMI, conjunctiva normal. [] Neck: Normal range of motion, no tenderness, supple, no stridor. [] Cardiovascular:Heart rate regular rhythm, no murmur [] Lungs & Thorax: Bilateral breath sounds clear to auscultation [] Abdomen: Bowel sounds normal, soft,no masses. [] Skin: Warm, dry, no erythema, no rash. [] Back: No tenderness. [] Extremities: No tenderness, no edema. [] Neurologic: Alert and oriented X 3, normal motor function, normal sensory function, no focal deficits noted. [] Psychologic: Affect normal, judgement normal, mood normal. [] Current Patient Data Vital Signs Vital Signs Date Time Temp Pulse Resp B/P (MAP) Pulse Ox O2 Delivery O2 Flow Rate FiO2 09/15/19 05:25 16 96 09/15/19 03:34 98.3 86 138/63 (88) Room Air 98.3 Lab Values Laboratory Tests Test 09/15/19 03:40 09/15/19 03:54 09/15/19 04:12 Urine Collection Type Unknown Urine Color Yellow Urine Clarity Clear Urine pH 5.5 Urine Specific [place] 1.020 Urine Protein Negative mg/dL (NEG-TRACE) Urine Glucose (UA) Negative mg/dL (NEG) Urine Ketones (Stick) Negative mg/dL (NEG) Urine Blood Small (NEG) Urine Nitrite Positive (NEG) Urine Bilirubin Negative (NEG) Urine Urobilinogen Dipstick 0.2 mg/dL (0.2 mg/dL) Urine Leukocyte Esterase Large (NEG) Urine RBC 3-5 /HPF (0-2) Urine WBC 11-20 /HPF (0-4) Urine Squamous Epithelial Cells Mod /LPF Urine Bacteria Many /HPF (0-FEW) Urine Mucus Slight /LPF Influenza Type A Antigen Negative (NEGATIVE) Influenza Type B Antigen Negative (NEGATIVE) White Blood Count 8.0 x10^3/uL (4.0-11.0) Red Blood Count 3.45 x10^6/uL (3.50-5.40) L Hemoglobin 10.1 g/dL (12.0-15.5) L Hematocrit 32.5 % (36.0-47.0) L Mean Corpuscular Volume 94 fL (79-100) Mean Corpuscular Hemoglobin 29 pg (25-35) Mean Corpuscular Hemoglobin Concent 31 g/dL (31-37) Red Cell Distribution Width 18.0 % (11.5-14.5) H Platelet Count 170 x10^3/uL (140-400) Neutrophils (%) (Auto) 73 % (31-73) Lymphocytes (%) (Auto) 19 % (24-48) L Monocytes (%) (Auto) 7 % (0-9) Eosinophils (%) (Auto) 1 % (0-3) Basophils (%) (Auto) 0 % (0-3) Neutrophils # (Auto) 5.8 x10^3/uL (1.8-7.7) Lymphocytes # (Auto) 1.5 x10^3/uL (1.0-4.8) Monocytes # (Auto) 0.6 x10^3/uL (0.0-1.1) Eosinophils # (Auto) 0.1 x10^3/uL (0.0-0.7) Basophils # (Auto) 0.0 x10^3/uL (0.0-0.2) Sodium Level 146 mmol/L (136-145) H Potassium Level 4.1 mmol/L (3.5-5.1) Chloride Level 111 mmol/L (98-107) H Carbon Dioxide Level 28 mmol/L (21-32) Anion Gap 7 (6-14) Blood Urea Nitrogen 17 mg/dL (7-20) Creatinine 1.2 mg/dL (0.6-1.0) H Estimated GFR (Cockcroft-Gault) 44.8 BUN/Creatinine Ratio 14 (6-20) Glucose Level 107 mg/dL (70-99) H Calcium Level 8.0 mg/dL (8.5-10.1) L Total Bilirubin 0.3 mg/dL (0.2-1.0) Aspartate Amino Transferase (AST) 41 U/L (15-37) H Alanine Aminotransferase (ALT) 32 U/L (14-59) Alkaline Phosphatase 172 U/L (46-116) H Troponin I Quantitative < 0.017 ng/mL (0.000-0.055) JW-Kjw-N-Type Natriuretic Peptide 406 pg/mL (0-124) H Total Protein 7.7 g/dL (6.4-8.2) Albumin 2.8 g/dL (3.4-5.0) L Albumin/Globulin Ratio 0.6 (1.0-1.7) L Laboratory Tests 09/15/19 04:12 Laboratory Tests 09/15/19 04:12 EKG EKG [EKG: reviewed] Radiology/Procedures Radiology/Procedures CXR: NAD] Course & Med Decision Making Course & Med Decision Making Pertinent Labs and Imaging studies reviewed. (See chart for details) [Urinary Tract infection with generalized fatigue weakness and malaise. IV fluids and antibiotics given. Vital signs stable. No fever, back pain, nausea vomiting. White blood cell count normal. Patient improved with treatment. We'll discharge home.] Dragon Disclaimer Dragon Disclaimer This electronic medical record was generated, in whole or in part, using a voice recognition dictation system. Departure Departure Impression: Primary Impression: Urinary tract infection Disposition: HOME, SELF-CARE Condition: IMPROVED Referrals: Aggie VILLA MD (PCP) Patient Instructions: Urinary Tract Infection Additional Instructions: Please increase fluids take nausea medication and antibiotics as directed. Her PCP later this week if symptoms persist. Return to the ED if new or worsening symptoms. Scripts Ciprofloxacin (CIPRO) 500 Mg/5 Ml Sofia..rec 500 MG PO BID for 5 Days, #10 SUSPENSION Prov: JOSÉ LUIS MAHARAJ DO 09/15/19 JOSÉ LUIS MAHARAJ DO Sep 15, 2019 04:22
[2019-09-15 04:24] LABS: INFLUENZA A PATIENT NEGATIVE (NEGATIVE); INFLUENZA B PATIENT NEGATIVE (NEGATIVE)
[2019-09-15] MEDS ORDERED: IV NORMAL SALINE 1000ML BAG 1,000 ML IV ONE (04:30)
[2019-09-15] MEDS ORDERED: KETOROLAC 15 MG/ML VIAL. IVP ONE (04:30)
--- NOTE | 2019-09-15 04:31 | RAD ---
Exam: Chest one view INDICATION: Shortness of air TECHNIQUE: Frontal view of chest Comparisons: 08/08/2019 FINDINGS: Heart is enlarged. Pulmonary vessels are within normal limits. The lung and pleural spaces are clear. IMPRESSION: No acute pulmonary process. Electronically signed by: Tray Tavera MD (09/15/2019 4:29 AM) [facility]
[2019-09-15 04:34] LABS: CREATININE 1.2 mg/dL (0.6-1.0); GFR 44.8; POTASSIUM 4.1 mmol/L (3.5-5.1)
[2019-09-15 04:41] LABS: ALBUMIN 2.8 g/dL (3.4-5.0); ALBUMIN/GLOBULIN RATIO 0.6 (1.0-1.7); TOTAL BILIRUBIN 0.3 mg/dL (0.2-1.0); TOTAL PROTEIN 7.7 g/dL (6.4-8.2)
[2019-09-15 04:57] LABS: BILIRUBIN,URINE NEGATIVE (NEG); CLARITY,URINE CLEAR; COLOR,URINE YELLOW; NITRITE,URINE POSITIVE (NEG); PH,URINE 5.5; PROTEIN,URINE NEGATIVE (NEG-TRACE); UROBILINOGEN,URINE 0.2 mg/dL (0.2 mg/dL)
[2019-09-15 05:01] LABS: SQUAMOUS EPITHELIAL CELL,UR MOD /LPF
[2019-09-15 05:02] LABS: BACTERIA,URINE MANY /HPF (0-FEW)
[2019-09-15] MEDS ORDERED: cefTRIAXone IV Push 1 GM VIAL. IVP ONE (05:30)
[2019-09-15] MEDS ORDERED: HYDROcodone/APAP 5/325MG 1 TAB TABLET PO ONE (05:30)
[2019-09-15 05:46] VITALS: BP 124/68
[2019-09-15] MEDS ORDERED: CIPR500S2 PO (06:06)
== END 2019-09-15 06:40 | disposition home or self-care (01) ==
LOC: ER 03:28
DX: N39.0 Urinary tract infection, site not specified (principal); F41.9 Anxiety disorder, unspecified; J45.909 Unspecified asthma, uncomplicated; I10 Essential (primary) hypertension; E03.9 Hypothyroidism, unspecified; Z87.440 Personal history of urinary (tract) infections; Z98.890 Other specified postprocedural states; Z90.710 Acquired absence of both cervix and uterus; Z98.51 Tubal ligation status; Z88.1 Allergy status to other antibiotic agents; Z88.8 Allergy status to other drugs, medicaments and biological substances; Z91.041 Radiographic dye allergy status
CPT/HCPCS: 36415; 71045; 80053; 81001; 83880; 84484; 85025; 87086; 87804; 96374; 96375; 99285; J0696; J1885; J7030; 87186

== ENCOUNTER 2020-06-03 03:07 | Emergency (ER) | payer MEDICARE, OTHER ==
[~2020-06-03] VITALS: Ht 152.4 cm; Wt 135.0 kg
[~2020-06-03 03:07] MED LIST changes: -CALC600T4 PO; +CALC600T6 PO; +CIPR500S2 PO; -DICL100G18 TP; +DICL100G54 TP
[2020-06-03 04:05] VITALS: BP 113/72
[2020-06-03] MEDS ORDERED: CLOT15CR23 TP (04:20)
--- NOTE | 2020-06-03 04:20 | PHYS DOC ---
Past Medical History Past Medical History: Anxiety, Asthma, Hypertension, Hypothyroid, UTI, Other Additional Past Medical Histor: WEARS CPAP @ NOC Past Surgical History: , Hysterectomy, Tubal ligation Additional Past Surgical Histo: wrist, knee scope, rt carpqal tunnel Smoking Status: Never Smoker Alcohol Use: None Drug Use: None General Adult EDM: Chief Complaint: SKIN RASH/ABSCESS HPI: HPI: Patient is a 70-year-old female who presents with chief complaint of rash beneath the breasts bilaterally. She states that is been present for 1 week. She notes that she saw her primary care physician approximate week ago and was prescribed nystatin powder does not help. She notes that the rash is somewhat red. She notes it is slightly tender to touch. Denies any areas of fluid collection or drainage. States she has had similar rashes in the past that have been relieved with nystatin powder. Denies fever. Denies drug use. No other complaints. Review of Systems: Review of Systems: Constitutional: Denies fever or chills. [] Eyes: Denies change in visual acuity. [] HENT: Denies nasal congestion or sore throat. [] Respiratory: Denies cough or shortness of breath. [] Cardiovascular: Denies chest pain or edema. [] GI: Denies abdominal pain, nausea, vomiting, bloody stools or diarrhea. [] : Denies dysuria. [] Musculoskeletal: Denies back pain or joint pain. [] Integument: Positive for rash Neurologic: Denies headache, focal weakness or sensory changes. [] Endocrine: Denies polyuria or polydipsia. [] Lymphatic: Denies swollen glands. [] Psychiatric: Denies depression or anxiety. [] Heart Score: Risk Factors: Risk Factors: DM, Current or recent (<one month) smoker, HTN, HLP, family history of CAD, obesity. Risk Scores: Score 0 - 3: 2.5% MACE over next 6 weeks - Discharge Home Score 4 - 6: 20.3% MACE over next 6 weeks - Admit for Clinical Observation Score 7 - 10: 72.7% MACE over next 6 weeks - Early Invasive Strategies Allergies: Allergies: Allergies Coded Allergies Type Severity Reaction Last Updated Verified amoxicillin trihydrate Allergy Intermediate 03/20/18 Yes celecoxib Allergy Intermediate 10/15/14 Yes potassium clavulanate Allergy Intermediate 10/15/14 Yes I S O L A T I O N *CONTACT* Allergy Unknown 02/11/15 Yes Physical Exam: PE: Constitutional: Well developed, well nourished, no acute distress, non-toxic appearance. [] HENT: Normocephalic, atraumatic, bilateral external ears normal, oropharynx moist, no oral exudates, nose normal. [] Eyes: PERRLA, EOMI, conjunctiva normal, no discharge. [] Neck: Normal range of motion, no tenderness, supple, no stridor. [] Cardiovascular:Heart rate regular rhythm, no murmur [] Lungs & Thorax: Bilateral breath sounds clear to auscultation [] Abdomen: soft, no tenderness, no masses, no pulsatile masses. [] Skin: Intertriginous appearing rash. Erythematous and beefy red flat rash noted inferior to the mammary folds bilaterally. No palpable areas of fluctuance. No induration noted. Back: No tenderness, no CVA tenderness. [] Extremities: No tenderness, no cyanosis, no clubbing, ROM intact, no edema. [] Neurologic: Alert and oriented X 3, normal motor function, normal sensory function, no focal deficits noted. [] Psychologic: Affect normal, judgement normal, mood normal. [] Current Patient Data: Vital Signs: Vital Signs Date Time Temp Pulse Resp B/P (MAP) Pulse Ox O2 Delivery O2 Flow Rate FiO2 06/03/20 04:05 99.5 94 18 113/72 (86) 95 Room Air 99.5 EKG: EKG: [] Radiology/Procedures: Radiology/Procedures: [] Course & Med Decision Making: Course & Med Decision Making Pertinent Labs and Imaging studies reviewed. (See chart for details) [] Patient is a 70-year-old female who presents with chief complaint of rash inferior to the mammary folds bilaterally. Rashes consistent with intertriginous skin changes. She has been taking nystatin powder. She will be transitioned to clotrimazole topical medication. She was instructed to call her primary care physician today to schedule appointment next week. Return precautions were discussed and understood. Patient is agreeable to this plan. Stable for discharge home. Faisalon Disclaimer: Carmenza Disclaimer: This electronic medical record was generated, in whole or in part, using a voice recognition dictation system. Departure Departure Impression: Primary Impression: Intertriginous candidiasis Disposition: 01 HOME, SELF-CARE Condition: STABLE Referrals: Aggie VILLA MD (PCP) Patient Instructions: Intertrigo Additional Instructions: Please follow-up with your primary care physician early next week for reevaluation. Scripts Clotrimazole (CLOTRIMAZOLE) 15 Gm Cream..g. 1 LIZA TP TID, #45 GM Prov: COLLEEN ROCHA DO 06/03/20 Justicifation of Admission Dx: Justifications for Admission: Justification of Admission Dx: N/A COLLEEN ROCHA DO Jun 03, 2020 04:20
== END 2020-06-03 04:37 | disposition home or self-care (01) ==
LOC: ER 03:07
DX: B37.2 Candidiasis of skin and nail (principal); J45.909 Unspecified asthma, uncomplicated; I10 Essential (primary) hypertension; E03.9 Hypothyroidism, unspecified; Z88.1 Allergy status to other antibiotic agents; Z91.041 Radiographic dye allergy status; Z88.8 Allergy status to other drugs, medicaments and biological substances
CPT/HCPCS: 99284

== ENCOUNTER 2020-08-19 13:46 | Emergency (ER) | payer OTHER ==
[~2020-08-19] VITALS: Ht 157.5 cm; Wt 129.1 kg
[~2020-08-19 13:46] MED LIST changes: -ALEN70TA6 PO; +ALEN70TA60 PO; +CEPH250C PO; +CLOT15CR23 TP
[2020-08-19 14:58] LABS: CALCIUM 8.6 mg/dL (8.5-10.1); CREATININE 1.3 mg/dL (0.6-1.0); GFR 40.7; POTASSIUM 4.1 mmol/L (3.5-5.1)
[2020-08-19 15:04] LABS: ALBUMIN 2.9 g/dL (3.4-5.0); ALBUMIN/GLOBULIN RATIO 0.8 (1.0-1.7); TOTAL BILIRUBIN 0.4 mg/dL (0.2-1.0); TOTAL PROTEIN 6.7 g/dL (6.4-8.2)
--- NOTE | 2020-08-19 15:04 | RAD ---
EXAM: CHEST AP ONLY INDICATION: Reason: confusion / Spl. Instructions: / History: . TECHNIQUE: Single view COMPARISON: Chest x-ray 07/05/2020 FINDINGS: The heart size is borderline enlarged.. Great vessels show tortuosity of the thoracic aorta. There is no hilar or mediastinal mass. The lungs are clear. Evidence of pulmonary vascular congestion present previously has since resolved. There is no pleural effusion or pneumothorax. There are no significant osseous abnormalities. IMPRESSION: Stable cardiomegaly and tortuosity of the thoracic aorta. No acute superimposed cardiopulmonary process. Electronically signed by: Yaritza Perales MD (08/19/2020 3:01 PM) [facility] [place]
[2020-08-19 15:05] LABS: BILIRUBIN,URINE NEGATIVE (NEG); CLARITY,URINE CLEAR; COLOR,URINE YELLOW; NITRITE,URINE POSITIVE (NEG); PROTEIN,URINE NEGATIVE (NEG-TRACE); UROBILINOGEN,URINE 0.2 mg/dL (0.2 mg/dL)
[2020-08-19 15:09] LABS: BACTERIA,URINE MANY /HPF (0-FEW); RBC,URINE OCC /HPF (0-2); WBC,URINE >40 /HPF (0-4)
[2020-08-19 15:16] LABS: BASO % 1 % (0-3); EOS # 0.2 x10^3/uL (0.0-0.7); EOS % 3 % (0-3); HEMATOCRIT 34.5 % (36.0-47.0); HEMOGLOBIN 11.3 g/dL (12.0-15.5); LYMPH # 1.4 x10^3/uL (1.0-4.8); LYMPH % 23 % (24-48); MEAN CORPUSCULAR HEMOGLOBIN 31 pg (25-35); MEAN CORPUSCULAR HGB CONC 33 g/dL (31-37); MEAN CORPUSCULAR VOLUME 94 fL (79-100); MONO # 0.4 x10^3/uL (0.0-1.1); MONO % 7 % (0-9); NEUT # 3.9 x10^3/uL (1.8-7.7); NEUT % 66 % (31-73); PLATELET COUNT 149 x10^3/uL (140-400); RED BLOOD COUNT 3.67 x10^6/uL (3.50-5.40); RED CELL DISTRIBUTION WIDTH 14.9 % (11.5-14.5); WHITE BLOOD COUNT 5.9 x10^3/uL (4.0-11.0)
[2020-08-19] MEDS ORDERED: CEPH-264 PO (16:10)
--- NOTE | 2020-08-19 16:11 | ED.ADGEN ---
Past Medical History Past Medical History: Anxiety, Asthma, CHF, Depression, GERD, High Cholesterol, Hypertension, Hypothyroid, MRSA, Pneumonia, UTI, Other Additional Past Medical Histor: hep c,periph neurop,L FOOT WOUND Past Surgical History: , Hysterectomy, Oophorectomy, Tonsillectomy, Other Additional Past Surgical Histo: wrist,knee scope,rt carpqal tunnel,WEIGHT LOSS SURGERY Smoking Status: Former Smoker Alcohol Use: None Drug Use: None General Adult EDM: Chief Complaint: ALTERED MENTAL STATUS HPI: HPI: Patient is a 70 year old [f__sex] who presents with [] Review of Systems: Review of Systems: Constitutional: Denies fever or chills. [] Eyes: Denies change in visual acuity. [] HENT: Denies nasal congestion or sore throat. [] Respiratory: Denies cough or shortness of breath. [] Cardiovascular: Denies chest pain or edema. [] GI: Denies abdominal pain, nausea, vomiting, bloody stools or diarrhea. [] : Denies dysuria. [] Musculoskeletal: Denies back pain or joint pain. [] Integument: Denies rash. [] Neurologic: Denies headache, focal weakness or sensory changes. [] Endocrine: Denies polyuria or polydipsia. [] Lymphatic: Denies swollen glands. [] Psychiatric: Denies depression or anxiety. [] Allergies: Allergies: Allergies Coded Allergies Type Severity Reaction Last Updated Verified amoxicillin trihydrate Allergy Intermediate 03/20/18 Yes celecoxib Allergy Intermediate 10/15/14 Yes potassium clavulanate Allergy Intermediate 10/15/14 Yes I S O L A T I O N *CONTACT* Allergy Unknown 02/11/15 Yes Physical Exam: PE: Constitutional: Well developed, well nourished, no acute distress, non-toxic appearance. [] HENT: Normocephalic, atraumatic, bilateral external ears normal, oropharynx moist, no oral exudates, nose normal. [] Eyes: PERRLA, EOMI, conjunctiva normal, no discharge. [] Neck: Normal range of motion, no tenderness, supple, no stridor. [] Cardiovascular:Heart rate regular rhythm, no murmur [] Lungs & Thorax: Bilateral breath sounds clear to auscultation [] Abdomen: Bowel sounds normal, soft, no tenderness, no masses, no pulsatile masses. [] Skin: Warm, dry, no erythema, no rash. [] Back: No tenderness, no CVA tenderness. [] Extremities: No tenderness, no cyanosis, no clubbing, ROM intact, no edema. [] Neurologic: Alert and oriented X 3, normal motor function, normal sensory function, no focal deficits noted. [] Psychologic: Affect normal, judgement normal, mood normal. [] Current Patient Data: Labs: Laboratory Tests Test 08/19/20 14:40 08/19/20 14:56 08/19/20 15:10 Sodium Level 138 mmol/L (136-145) Potassium Level 4.1 mmol/L (3.5-5.1) Chloride Level 104 mmol/L (98-107) Carbon Dioxide Level 26 mmol/L (21-32) Anion Gap 8 (6-14) Blood Urea Nitrogen 12 mg/dL (7-20) Creatinine 1.3 mg/dL (0.6-1.0) H Estimated GFR (Cockcroft-Gault) 40.7 BUN/Creatinine Ratio 9 (6-20) Glucose Level 104 mg/dL (70-99) H Calcium Level 8.6 mg/dL (8.5-10.1) Total Bilirubin 0.4 mg/dL (0.2-1.0) Aspartate Amino Transferase (AST) 22 U/L (15-37) Alanine Aminotransferase (ALT) 18 U/L (14-59) Alkaline Phosphatase 126 U/L (46-116) H Troponin I Quantitative < 0.017 ng/mL (0.000-0.055) Total Protein 6.7 g/dL (6.4-8.2) Albumin 2.9 g/dL (3.4-5.0) L Albumin/Globulin Ratio 0.8 (1.0-1.7) L Urine Collection Type U cath Urine Color Yellow Urine Clarity Clear Urine pH 6.0 (<5.0-8.0) Urine Specific [place] 1.015 (1.000-1.030) Urine Protein Negative mg/dL (NEG-TRACE) Urine Glucose (UA) Negative mg/dL (NEG) Urine Ketones (Stick) Negative mg/dL (NEG) Urine Blood Negative (NEG) Urine Nitrite Positive (NEG) Urine Bilirubin Negative (NEG) Urine Urobilinogen Dipstick 0.2 mg/dL (0.2 mg/dL) Urine Leukocyte Esterase Moderate (NEG) Urine RBC Occ /HPF (0-2) Urine WBC >40 /HPF (0-4) Urine Squamous Epithelial Cells Few /LPF Urine Bacteria Many /HPF (0-FEW) Urine Mucus Mod /LPF White Blood Count 5.9 x10^3/uL (4.0-11.0) Red Blood Count 3.67 x10^6/uL (3.50-5.40) Hemoglobin 11.3 g/dL (12.0-15.5) L Hematocrit 34.5 % (36.0-47.0) L Mean Corpuscular Volume 94 fL (79-100) Mean Corpuscular Hemoglobin 31 pg (25-35) Mean Corpuscular Hemoglobin Concent 33 g/dL (31-37) Red Cell Distribution Width 14.9 % (11.5-14.5) H Platelet Count 149 x10^3/uL (140-400) Neutrophils (%) (Auto) 66 % (31-73) Lymphocytes (%) (Auto) 23 % (24-48) L Monocytes (%) (Auto) 7 % (0-9) Eosinophils (%) (Auto) 3 % (0-3) Basophils (%) (Auto) 1 % (0-3) Neutrophils # (Auto) 3.9 x10^3/uL (1.8-7.7) Lymphocytes # (Auto) 1.4 x10^3/uL (1.0-4.8) Monocytes # (Auto) 0.4 x10^3/uL (0.0-1.1) Eosinophils # (Auto) 0.2 x10^3/uL (0.0-0.7) Basophils # (Auto) 0.0 x10^3/uL (0.0-0.2) Laboratory Tests 08/19/20 15:10 Laboratory Tests 08/19/20 14:40 Vital Signs: Vital Signs Date Time Temp Pulse Resp B/P (MAP) Pulse Ox O2 Delivery O2 Flow Rate FiO2 08/19/20 14:15 97.6 81 20 139/66 (90) 96 Room Air 97.6 EKG: EKG: [] Heart Score: Risk Factors: Risk Factors: DM, Current or recent (<one month) smoker, HTN, HLP, family history of CAD, obesity. Risk Scores: Score 0 - 3: 2.5% MACE over next 6 weeks - Discharge Home Score 4 - 6: 20.3% MACE over next 6 weeks - Admit for Clinical Observation Score 7 - 10: 72.7% MACE over next 6 weeks - Early Invasive Strategies Radiology/Procedures: Radiology/Procedures: [] Course & Med Decision Making: Course & Med Decision Making Pertinent Labs and Imaging studies reviewed. (See chart for details) [] Dragon Disclaimer: Dragon Disclaimer: This electronic medical record was generated, in whole or in part, using a voice recognition dictation system. Departure Departure Impression: Primary Impression: UTI (urinary tract infection) Disposition: 01 DC HOME SELF CARE/HOMELESS Condition: STABLE Referrals: Aggie VILLA MD (PCP) Patient Instructions: Urinary Tract Infection Scripts Cephalexin (KEFLEX) 500 Mg Capsule 1 CAP PO Q12HR for 10 Days, #20 CAP Prov: DIONY RODRIGUEZ MD 08/19/20 DIONY RODRIGUEZ MD Aug 19, 2020 16:11
--- NOTE | 2020-08-19 16:23 | EKG ---
[facility] [address] [place] [address] Test Date: 2020-08-19 Test Time: 14:49:58 Pat Name: PILLO JEROME Department: Room: Gender: F General I Farmworker: : 1950 Requested By: DIONY RODRIGUEZ Order Number: [id number] Reading MD: Measurements Intervals [place] Rate: 75 P: 54 VA: 222 QRS: 34 QRSD: 84 T: 42 QT: 388 QTc: 436 Interpretive Statements SINUS RHYTHM PROLONGED VA INTERVAL QRS(T) CONTOUR ABNORMALITY CONSIDER ANTEROSEPTAL MYOCARDIAL DAMAGE ABNORMAL ECG RI6.01 No previous ECG available for comparison
[2020-08-19 17:05] VITALS: BP 121/81
== END 2020-08-19 18:30 | disposition home or self-care (01) ==
LOC: ER 13:46
DX: N39.0 Urinary tract infection, site not specified (principal); R41.0 Disorientation, unspecified; R19.7 Diarrhea, unspecified; F41.9 Anxiety disorder, unspecified; J45.909 Unspecified asthma, uncomplicated; I11.0 Hypertensive heart disease with heart failure; I50.9 Heart failure, unspecified; K21.9 Gastro-esophageal reflux disease without esophagitis; F32.9 Major depressive disorder, single episode, unspecified; E78.00 Pure hypercholesterolemia, unspecified; E03.9 Hypothyroidism, unspecified; Z86.14 Personal history of Methicillin resistant Staphylococcus aureus infection; Z90.89 Acquired absence of other organs; Z90.710 Acquired absence of both cervix and uterus; Z87.891 Personal history of nicotine dependence; Z98.890 Other specified postprocedural states; Z88.1 Allergy status to other antibiotic agents; Z88.8 Allergy status to other drugs, medicaments and biological substances
CPT/HCPCS: 36415; 71045; 80053; 81001; 84484; 85025; 93005; 99285

== ENCOUNTER 2020-09-22 10:43 | Inpatient (IN) | payer MEDICARE ==
[~2020-09-22] VITALS: Ht 152.4 cm; Wt 129.9 kg
[~2020-09-22 10:43] MED LIST changes: +ACET325T9 PO; -ALEN70TA60 PO; +ALEN70TA71 PO; +AMMO225L5 TP; +AMOX1TAB61 PO; -CALC600T6 PO; +CALC600T60 PO; +CEFU500T46 PO; -CLIN300C8 PO; +CLIN300C9 PO; +MAGN400T44 PO; -OMEP40CA45 PO; +OMEP40CA7 PO; +OXYC1TAB15 PO
[2020-09-22 11:32] LABS: BASO % 1 % (0-3); EOS # 0.3 x10^3/uL (0.0-0.7); EOS % 3 % (0-3); HEMATOCRIT 31.7 % (36.0-47.0); HEMOGLOBIN 10.3 g/dL (12.0-15.5); LYMPH # 1.1 x10^3/uL (1.0-4.8); LYMPH % 13 % (24-48); MEAN CORPUSCULAR HEMOGLOBIN 31 pg (25-35); MEAN CORPUSCULAR HGB CONC 32 g/dL (31-37); MEAN CORPUSCULAR VOLUME 95 fL (79-100); MONO # 0.6 x10^3/uL (0.0-1.1); MONO % 7 % (0-9); NEUT % 77 % (31-73); PLATELET COUNT 189 x10^3/uL (140-400); RED BLOOD COUNT 3.35 x10^6/uL (3.50-5.40); WHITE BLOOD COUNT 9.1 x10^3/uL (4.0-11.0)
[2020-09-22 11:34] LABS: BILIRUBIN,URINE SMALL (NEG); CLARITY,URINE CLEAR; COLOR,URINE AMBER; NITRITE,URINE POSITIVE (NEG); PH,URINE 5.5 (<5.0-8.0); PROTEIN,URINE NEGATIVE (NEG-TRACE)
[2020-09-22 11:41] LABS: CALCIUM 8.7 mg/dL (8.5-10.1); CREATININE 1.5 mg/dL (0.6-1.0); GFR 34.5; POTASSIUM 4.5 mmol/L (3.5-5.1)
[2020-09-22 11:47] LABS: ALBUMIN 2.8 g/dL (3.4-5.0); ALBUMIN/GLOBULIN RATIO 0.6 (1.0-1.7); TOTAL BILIRUBIN 0.6 mg/dL (0.2-1.0); TOTAL PROTEIN 7.4 g/dL (6.4-8.2)
--- NOTE | 2020-09-22 11:48 | ED.ADGEN ---
Past Medical History Past Medical History: Anxiety, Asthma, CHF, Depression, GERD, High Cholesterol, Hypertension, Hypothyroid, MRSA, Pneumonia, UTI, Other Additional Past Medical Histor: hep c,periph neurop,L FOOT WOUND Past Surgical History: , Hysterectomy, Oophorectomy, Tonsillectomy, Other Additional Past Surgical Histo: wrist,knee scope,rt carpqal tunnel,WEIGHT LOSS SURGERY Smoking Status: Never Smoker Alcohol Use: None Drug Use: None General Adult EDM: Chief Complaint: ALTERED MENTAL STATUS HPI: HPI: Patient is a 70-year-old female who presents to the emergency room with reported altered mental status. Family sent her because she typically is ambulatory with her walker and alert and oriented but this morning she was diffusely weak. History is very limited from the patient. She does state that she has chronic back pain and that her legs hurt. She has chronic wounds on her leg. Review of Systems: Review of Systems: Complete ROS is negative unless otherwise documented in HPI Current Medications: Current Medications Medications (Trade) Dose Ordered Sig/Doris Start Time Stop Time Status Last Admin Dose Admin Ceftriaxone Sodium (Rocephin) 1 gm 1X ONCE 09/22/20 12:30 09/22/20 12:31 DC 09/22/20 12:49 1 GM Allergies: Allergies: Allergies Coded Allergies Type Severity Reaction Last Updated Verified amoxicillin trihydrate Allergy Intermediate 03/20/18 Yes celecoxib Allergy Intermediate 10/15/14 Yes potassium clavulanate Allergy Intermediate 10/15/14 Yes I S O L A T I O N *CONTACT* Allergy Unknown 02/11/15 Yes Physical Exam: PE: General: Awake, alert, NAD. Well Nourished, well hydrated. Cooperative HEENT: Atraumatic, EOMI, PERRL, airway patent, moist oral mucosa Neck: Supple, trachea midline Respiratory: CTA bilaterally, normal effort, no wheezing/crackles CV: RRR, no murmur, cap refill <2 GI: Soft, nondistended, nontender, no masses MSK: No obvious deformities Skin: Warm, dry right leg: Lower leg with erythema, swelling, multiple ulcerations. Left leg: Erythema with a wound to the left heel, excoriation u nder the breast and pannus consistent with yeast Neuro: A&O x2, speech NL, sensory and motor grossly intact, no focal deficits Psych: Normal affect, normal mood, not suicidal or homicidal Current Patient Data: Labs: Laboratory Tests Test 09/22/20 11:00 09/22/20 11:15 Urine Collection Type U cath Urine Color Tamica Urine Clarity Clear Urine pH 5.5 (<5.0-8.0) Urine Specific [place] 1.020 (1.000-1.030) Urine Protein Negative mg/dL (NEG-TRACE) Urine Glucose (UA) Negative mg/dL (NEG) Urine Ketones (Stick) Negative mg/dL (NEG) Urine Blood Trace (NEG) Urine Nitrite Positive (NEG) Urine Bilirubin Small (NEG) Urine Urobilinogen Dipstick 1.0 mg/dL (0.2 mg/dL) Urine Leukocyte Esterase Moderate (NEG) Urine RBC Rare /HPF (0-2) Urine WBC 20-40 /HPF (0-4) Urine Squamous Epithelial Cells Few /LPF Urine Bacteria Many /HPF (0-FEW) Urine Hyaline Casts Occasional /HPF Urine Mucus Slight /LPF White Blood Count 9.1 x10^3/uL (4.0-11.0) Red Blood Count 3.35 x10^6/uL (3.50-5.40) L Hemoglobin 10.3 g/dL (12.0-15.5) L Hematocrit 31.7 % (36.0-47.0) L Mean Corpuscular Volume 95 fL (79-100) Mean Corpuscular Hemoglobin 31 pg (25-35) Mean Corpuscular Hemoglobin Concent 32 g/dL (31-37) Red Cell Distribution Width 15.0 % (11.5-14.5) H Platelet Count 189 x10^3/uL (140-400) Neutrophils (%) (Auto) 77 % (31-73) H Lymphocytes (%) (Auto) 13 % (24-48) L Monocytes (%) (Auto) 7 % (0-9) Eosinophils (%) (Auto) 3 % (0-3) Basophils (%) (Auto) 1 % (0-3) Neutrophils # (Auto) 7.0 x10^3/uL (1.8-7.7) Lymphocytes # (Auto) 1.1 x10^3/uL (1.0-4.8) Monocytes # (Auto) 0.6 x10^3/uL (0.0-1.1) Eosinophils # (Auto) 0.3 x10^3/uL (0.0-0.7) Basophils # (Auto) 0.0 x10^3/uL (0.0-0.2) Sodium Level 139 mmol/L (136-145) Potassium Level 4.5 mmol/L (3.5-5.1) Chloride Level 102 mmol/L (98-107) Carbon Dioxide Level 31 mmol/L (21-32) Anion Gap 6 (6-14) Blood Urea Nitrogen 30 mg/dL (7-20) H Creatinine 1.5 mg/dL (0.6-1.0) H Estimated GFR (Cockcroft-Gault) 34.5 BUN/Creatinine Ratio 20 (6-20) Glucose Level 108 mg/dL (70-99) H Calcium Level 8.7 mg/dL (8.5-10.1) Total Bilirubin 0.6 mg/dL (0.2-1.0) Aspartate Amino Transferase (AST) 16 U/L (15-37) Alanine Aminotransferase (ALT) 16 U/L (14-59) Alkaline Phosphatase 134 U/L (46-116) H Total Protein 7.4 g/dL (6.4-8.2) Albumin 2.8 g/dL (3.4-5.0) L Albumin/Globulin Ratio 0.6 (1.0-1.7) L Laboratory Tests 09/22/20 11:15 Laboratory Tests 09/22/20 11:15 Vital Signs: Vital Signs Date Time Temp Pulse Resp B/P (MAP) Pulse Ox O2 Delivery O2 Flow Rate FiO2 09/22/20 13:00 78 100 09/22/20 11:00 98.3 24 121/58 (79) Room Air 98.3 EKG: EKG: [] Heart Score: Risk Factors: Risk Factors: DM, Current or recent (<one month) smoker, HTN, HLP, family history of CAD, obesity. Risk Scores: Score 0 - 3: 2.5% MACE over next 6 weeks - Discharge Home Score 4 - 6: 20.3% MACE over next 6 weeks - Admit for Clinical Observation Score 7 - 10: 72.7% MACE over next 6 weeks - Early Invasive Strategies Radiology/Procedures: Radiology/Procedures: [] Course & Med Decision Making: Course & Med Decision Making Pertinent Labs and Imaging studies reviewed. (See chart for details) Patient is a 70-year-old female with a history of UTIs who presents to the Emergency Room with altered mental status. On exam, patient has bilateral swelling to lower extremities with erythema and wounds, mild confusion. At this time it is unclear what is causing the patient's altered mental status, however they do not appear to be at their baseline. Differential includes infection, electrolyte imbalance, ACS, stroke, intracranial bleed, polypharmacy, dehydration, dementia, renal failure. Patient does not have hypo-or hyperthermia. No history was provided to suggest seizure with postictal state. Glucose is normal upon arrival. At arrival, patient is protecting their airway and does not need to be intubated. There are not any signs of trauma. To evaluate the patient's altered mental status, CBC, CMP, UA, troponin, EKG, CT head will be ordered. Patient has a UTI. Will be admitted for altered mental status with UTI Dragon Disclaimer: Dragon Disclaimer: This electronic medical record was generated, in whole or in part, using a voice recognition dictation system. Departure Departure Impression: Primary Impression: UTI (urinary tract infection) Additional Impression: Altered mental status Disposition: ADMITTED INPT THIS HOSP Condition: STABLE Referrals: Aggie VILLA MD (PCP) Problem Qualifiers DIONY RODRIGUEZ MD Sep 22, 2020 11:48
[2020-09-22 11:49] LABS: BACTERIA,URINE MANY /HPF (0-FEW); RBC,URINE RARE /HPF (0-2); WBC,URINE 20-40 /HPF (0-4)
[2020-09-22 11:50] LABS: HYALINE CASTS, URINE OCCASIONAL /HPF
[2020-09-22] MEDS ORDERED: cefTRIAXone IV Push 1 GM VIAL. IVP ONE (12:30)
[2020-09-22 15:40] VITALS: BP 79/34
[2020-09-22] MEDS: IV NORMAL SALINE 1000ML BAG 1,000 ML IV SCH (16:30)
[2020-09-22 18:13] VITALS: BP 79/45
--- NOTE | 2020-09-22 18:14 | HP ---
ADMIT DATE: 09/22/2020 CHIEF COMPLAINT: Mental status change. HISTORY OF PRESENT ILLNESS: The patient is a pleasant 70-year-old female who presents to the ER with mental status change. While in the ER, she was noted to have a UTI. I discussed the case with ER physician. We are going to admit the patient, give her IV fluids, IV antibiotics and rule out COVID-19. PAST MEDICAL HISTORY: Asthma, anxiety, CHF, depression, GERD, hyperlipidemia, hypertension, hypothyroidism, MRSA, pneumonia, UTI, hep C, neuropathy, foot wound, , hysterectomy, oophorectomy, tonsillectomy, carpal tunnel surgery, weight loss surgery. ALLERGIES: AMOXICILLIN, CELEBREX, AUGMENTIN. FAMILY HISTORY: Diabetes. SOCIAL HISTORY: She does not drink, smoke or take drugs. MEDICATIONS: Reviewed, please refer to the MRAD. REVIEW OF SYSTEMS: Unable to obtain. She is obtunded. PHYSICAL EXAMINATION: VITALS: Within normal limits and are stable. GENERAL: She is obtunded. HEENT: Normal cephalic atraumatic, external auditory canals are patent. EYES: Extraocular muscles are intact, pupils are equally round and reactive to light and accommodation. MUSCULOSKELETAL: Well developed, well nourished, good range of motion. ENDOCRINE: No thyromegaly was palpated. LYMPHATICS: No cervical chain or axillary nodes were noted. HEMATOPOIETIC: No bruising. NECK: Supple, no JVD, no thyromegaly was noted. LUNGS: Clear to auscultation in all lung davidson without rhonchi or wheezing. HEART: RRR, S1, S2 present. Peripheral pulses intact, no obvious murmurs were noted. ABDOMEN: Soft, nontender. Positive bowel sounds no organomegaly, normal bowel sounds. EXTREMITIES: Without any cyanosis, clubbing, or edema. Pedal pulses intact, Homans sign is negative. NEUROLOGIC: She is obtunded. PSYCHIATRIC: She is obtunded. SKIN: No ulcerations or rashes, good skin turgor, no jaundice. VASCULAR: Good capillary refill, neurovascular bundle appears to be intact. LABORATORY DATA: Urinalysis shows moderate leukocyte esterase and 20-40 white cells. White count is 9, hemoglobin 10.3, platelets 189. Electrolytes are normal other than a BUN of 30 and creatinine 1.5. ASSESSMENT AND PLAN: Urinary tract infection, metabolic encephalopathy, possible COVID-19, azotemia, renal insufficiency. The patient has been admitted. We will start IV fluids, IV antibiotics, home medications, DVT prophylaxis. Consult Infectious Disease. JORGE ALBERTO HELTON DO DR: Sergio JOB#: [id number] / [id number]
--- NOTE | 2020-09-22 18:46 | NUR ---
@ 1600 When pt was being admitted to unit Amy RN called from ED stating pt was more lethargic and coughing frequently. Paged Dr. Torres received orders to transfer and swab for covid. When checking VS BP 79/[address] Torres notified. NS bolus initiated. Pt transferring to [facility]. Called and gave report to Betsey. Completed as much of admission as possible. Pt lethargic and unable to answer questions. Unable to take wound pics. Updated Betsey and requested they take them once shes transferred. Pt belongings were packed and sent with her via bed.
[2020-09-22 19:29] VITALS: BP 103/50
[2020-09-22 19:44] VITALS: BP 90/57
[2020-09-22 20:00] VITALS: BP 79/46
[2020-09-22] MEDS ORDERED: VANCOMYCIN 1.25 GM in IV NORMAL SALINE 250ML 250 ML IV ONE (20:00)
[2020-09-22] MEDS ORDERED: VANCOMYCIN PER PHARMACY MC PRN (20:15)
[2020-09-22 20:25] LABS: BASE EXCESS COOX 1 mmol/L (-3-3); HCO3 COOX 25 mmol/L (21-28); METHEMOGLOBIN 0.2 % (0.0-1.9); OXYHEMOGLOBIN 96.3 %; PCO2 COOX 40 mmHg (35-46); PO2 COOX 93 mmHg (65-108); SAT O2 COOX 97 % (92-99)
--- NOTE | 2020-09-22 20:37 | RAD ---
EXAM: AP View of the chest DATE: 09/22/2020 7:35 PM INDICATION: Reason: tachypnea, ams / Spl. Instructions: / History: COMPARISON: No Prior FINDINGS: Heart is mildly enlarged. Aorta is tortuous. Patchy wedge-shaped opacities in the medial left upper lung and right midlung. No pleural effusion or pneumothorax. IMPRESSION: 1. Patchy wedge-shaped opacities in the medial left upper lung and right midlung, may represent mult ifocal infection/inflammation. Atypical edema may also result in this appearance. Electronically signed by: Wayne Miramontes MD (09/22/2020 8:34 PM) VIOLETA
[2020-09-22] MEDS ORDERED: VANCOMYCIN 2 GM in IV NORMAL SALINE 500ML BAG 500 ML IV ONE (21:00)
[2020-09-22] MEDS ORDERED: VANCOMYCIN 1 GM in IV NORMAL SALINE 250ML 250 ML IV ONE (21:15)
[2020-09-22 23:59] VITALS: BP 92/44
[2020-09-23] VITALS (7 sets, daily range): BP systolic 98–133; BP diastolic 44–66
[2020-09-23] MEDS: IV NORMAL SALINE 1000ML BAG 1,000 ML IV SCH ×2 (00:16→14:36)
--- NOTE | 2020-09-23 00:53 | NUR ---
pt is talking and demanding water, food, and her home medicines. Bedside swallow evaluation showed that she can swallow effectively without choking, no apparent aspirating issues.
--- NOTE | 2020-09-23 00:55 | NUR ---
pt states she was recently discharged from [facility] and is at home with home health, her sister Evelina helps care for her. She states she has told "the doctors and all medical staff" that she has had a urinary tract infection for some time and states multiple presentations to [facility]. Pt states her son has been diagnosed "with that new stuff, I call it the flu, but the one on TV". This RN asks if she is talking about COVID and she states "yes."
[2020-09-23] MEDS ORDERED: LEVO200T PO (01:51)
[2020-09-23] MEDS ORDERED: PRAM2.252 PO (01:51)
[2020-09-23] MEDS ORDERED: LEVO150T PO (01:51)
[2020-09-23] MEDS ORDERED: GABA800T5 PO (01:51)
[2020-09-23] MEDS ORDERED: FURO40TA4 PO (01:51)
[2020-09-23] MEDS ORDERED: FERR325T14 PO (01:51)
[2020-09-23] MEDS ORDERED: HYDR-2765 PO (01:51)
[2020-09-23] MEDS ORDERED: ACETAMINOPHEN 325 MG TABLET. PO PRN (02:00)
[2020-09-23] MEDS ORDERED: AMMONIUM LACTATE 12% TOPICAL LOTION 225GM BOTTLE. TP PRN (02:00)
--- NOTE | 2020-09-23 02:06 | NUR ---
Pharmacy Vancomycin Dosing Note S:Consulted to monitor and dose vancomycin started 09/22/20. O:PILLO JEROME is a 70 year old F with UTI . Height: 5 feet, 0 inches Weight: 129.9 kg [place] Body Weight: 45.50 Adjusted Body Weight: 79.26 Dosing Weight: Adjusted Other Antibiotics: CEFTRIAXONE X1 LABS: Last BUN: 30 Last Creatinine: 1.5 Creatinine Clearance: 44 mL/min Last WBC: 9.1 Last Procalcitonin: Tmax (past 24 hours): Microbiology: I/O: Drug Levels: Last level: on at Last dose given 09/22/20 at 2130 Vancomycin Dosing: Loading Dose: 2000 mg x1 Dosing Weight: Adjusted Target Trough: 10-20 A: Based on: WT, CRCL, PREVIOUS ADMISSION DOSING P: 1. Begin Vancomycin 1500 mg IV q24h 2. Follow up Trough level on 09/24/20 at 2030 3. Pharmacy will continue to monitor, follow and adjust therapy as needed. SHARAD CONROY RPH, 09/23/20 020 Signed: 09/23/20 at 0206 by SHARAD CONROY RPH PHA
--- NOTE | 2020-09-23 02:28 | NUR ---
PRN BIPAP ORDERS NOTED AND ACKNOWLEDGED. PT ABG NORMAL AND PT NO LONGER SLEEPY UPON RETURN TO HER ROOM. WILL HOLD OFF ON PLACING HER ON BIPAP FOR NOW AND CONTINUE TO MONITOR FOR DECREASED LOC OR RESPIRATORY DISTRESS, AND HYPOXIA TO INITIATE BIPAP
[2020-09-23] MEDS: HYDROcodone/APAP 7.5/325MG 1 TAB TABLET PO PRN ×3 (02:29→23:03)
[2020-09-23] MEDS ORDERED: PRAM1TAB36 PO (03:04)
[2020-09-23] MEDS: LEVOTHYROXINE 175 MCG TABLET PO SCH (05:57)
[2020-09-23] MEDS: MAGNESIUM OXIDE 400 MG TABLET PO SCH ×2 (05:58→16:05)
[2020-09-23] MEDS ORDERED: LEVOTHYROXINE 150 MCG TABLET PO SCH (06:00)
[2020-09-23] MEDS: BUDESONIDE 0.5 MG/2 ML NEBU. NEB SCH ×2 (06:44→20:00)
[2020-09-23] MEDS: ALBUTEROL SULFATE 2.5 MG/3 ML NEBU. NEB SCH ×4 (06:44→20:00)
[2020-09-23] MEDS: PSYLLIUM HUSK (SUGAR FREE) 1 PKT PACKET PO SCH (08:39)
[2020-09-23] MEDS: DOCUSATE SODIUM 100 MG CAPSULE. PO SCH (08:40)
[2020-09-23] MEDS: CITALOPRAM 20 MG TABLET. PO SCH (08:40)
[2020-09-23] MEDS: ASPIRIN CHEWABLE 81 MG TABLET. PO SCH (08:40)
[2020-09-23] MEDS: FAMOTIDINE 20 MG TABLET. PO SCH (08:40)
[2020-09-23] MEDS: GABAPENTIN 400 MG CAPSULE. PO SCH ×2 (08:40→22:54)
[2020-09-23] MEDS: FUROSEMIDE 40 MG TABLET. PO SCH (08:40)
[2020-09-23] MEDS: DICLOFENAC SODIUM 1% TOPICAL GEL 100GM TUBE. TP SCH ×2 (08:40→22:55)
[2020-09-23] MEDS: FERROUS SULFATE 325 MG TABLET. PO SCH (08:40)
[2020-09-23] MEDS: LOSARTAN POTASSIUM 50 MG TABLET. PO SCH (08:41)
[2020-09-23] MEDS: METOPROLOL SUCC 24HR ER 100 MG TAB.ER.24H. PO SCH (08:41)
[2020-09-23] MEDS ORDERED: LEVOTHYROXINE SODIUM PO SCH (09:00)
--- NOTE | 2020-09-23 10:24 | PDOC ---
PULMONARY PROGRESS NOTES DATE: 09/23/20 TIME: 10:23 Vitals Vital Signs Date Time Temp Pulse Resp B/P (MAP) Pulse Ox O2 Delivery O2 Flow Rate FiO2 09/23/20 08:41 70 108/49 09/23/20 08:13 Nasal Cannula 2.0 09/23/20 07:00 22 93 09/23/20 02:44 98.4 98.4 General: Alert, No acute distress Lungs: Clear, Wheezing Cardiovascular: S1 Abdomen: Soft, Non-tender, Other Extremities: No Edema, Other Labs Laboratory Tests Test 09/22/20 11:00 09/22/20 11:15 09/22/20 19:45 Urine Collection Type U cath Urine Color Tamica Urine Clarity Clear Urine pH 5.5 (<5.0-8.0) Urine Specific [place] 1.020 (1.000-1.030) Urine Protein Negative mg/dL (NEG-TRACE) Urine Glucose (UA) Negative mg/dL (NEG) Urine Ketones (Stick) Negative mg/dL (NEG) Urine Blood Trace (NEG) Urine Nitrite Positive (NEG) Urine Bilirubin Small (NEG) Urine Urobilinogen Dipstick 1.0 mg/dL (0.2 mg/dL) Urine Leukocyte Esterase Moderate (NEG) Urine RBC Rare /HPF (0-2) Urine WBC 20-40 /HPF (0-4) Urine Squamous Epithelial Cells Few /LPF Urine Bacteria Many /HPF (0-FEW) Urine Hyaline Casts Occasional /HPF Urine Mucus Slight /LPF White Blood Count 9.1 x10^3/uL (4.0-11.0) Red Blood Count 3.35 x10^6/uL (3.50-5.40) Hemoglobin 10.3 g/dL (12.0-15.5) Hematocrit 31.7 % (36.0-47.0) Mean Corpuscular Volume 95 fL (79-100) Mean Corpuscular Hemoglobin 31 pg (25-35) Mean Corpuscular Hemoglobin Concent 32 g/dL (31-37) Red Cell Distribution Width 15.0 % (11.5-14.5) Platelet Count 189 x10^3/uL (140-400) Neutrophils (%) (Auto) 77 % (31-73) Lymphocytes (%) (Auto) 13 % (24-48) Monocytes (%) (Auto) 7 % (0-9) Eosinophils (%) (Auto) 3 % (0-3) Basophils (%) (Auto) 1 % (0-3) Neutrophils # (Auto) 7.0 x10^3/uL (1.8-7.7) Lymphocytes # (Auto) 1.1 x10^3/uL (1.0-4.8) Monocytes # (Auto) 0.6 x10^3/uL (0.0-1.1) Eosinophils # (Auto) 0.3 x10^3/uL (0.0-0.7) Basophils # (Auto) 0.0 x10^3/uL (0.0-0.2) Sodium Level 139 mmol/L (136-145) Potassium Level 4.5 mmol/L (3.5-5.1) Chloride Level 102 mmol/L (98-107) Carbon Dioxide Level 31 mmol/L (21-32) Anion Gap 6 (6-14) Blood Urea Nitrogen 30 mg/dL (7-20) Creatinine 1.5 mg/dL (0.6-1.0) Estimated GFR (Cockcroft-Gault) 34.5 BUN/Creatinine Ratio 20 (6-20) Glucose Level 108 mg/dL (70-99) Calcium Level 8.7 mg/dL (8.5-10.1) Total Bilirubin 0.6 mg/dL (0.2-1.0) Aspartate Amino Transf (AST/SGOT) 16 U/L (15-37) Alanine Aminotransferase (ALT/SGPT) 16 U/L (14-59) Alkaline Phosphatase 134 U/L (46-116) Total Protein 7.4 g/dL (6.4-8.2) Albumin 2.8 g/dL (3.4-5.0) Albumin/Globulin Ratio 0.6 (1.0-1.7) O2 Saturation 97 % (92-99) Arterial Blood pH 7.42 (7.35-7.45) Arterial Blood pCO2 at Patient Temp 40 mmHg (35-46) Arterial Blood pO2 at Patient Temp 93 mmHg (65-108) Arterial Blood HCO3 25 mmol/L (21-28) Arterial Blood Base Excess 1 mmol/L (-3-3) Oxyhemoglobin 96.3 % Methemoglobin 0.2 % (0.0-1.9) Carbon Monoxide, Quantitative 0.3 % (0.0-1.9) FiO2 28 Laboratory Tests Test 09/22/20 11:00 09/22/20 11:15 09/22/20 19:45 Urine Collection Type U cath Urine Color Tamica Urine Clarity Clear Urine pH 5.5 (<5.0-8.0) Urine Specific [place] 1.020 (1.000-1.030) Urine Protein Negative mg/dL (NEG-TRACE) Urine Glucose (UA) Negative mg/dL (NEG) Urine Ketones (Stick) Negative mg/dL (NEG) Urine Blood Trace (NEG) Urine Nitrite Positive (NEG) Urine Bilirubin Small (NEG) Urine Urobilinogen Dipstick 1.0 mg/dL (0.2 mg/dL) Urine Leukocyte Esterase Moderate (NEG) Urine RBC Rare /HPF (0-2) Urine WBC 20-40 /HPF (0-4) Urine Squamous Epithelial Cells Few /LPF Urine Bacteria Many /HPF (0-FEW) Urine Hyaline Casts Occasional /HPF Urine Mucus Slight /LPF White Blood Count 9.1 x10^3/uL (4.0-11.0) Red Blood Count 3.35 x10^6/uL (3.50-5.40) Hemoglobin 10.3 g/dL (12.0-15.5) Hematocrit 31.7 % (36.0-47.0) Mean Corpuscular Volume 95 fL (79-100) Mean Corpuscular Hemoglobin 31 pg (25-35) Mean Corpuscular Hemoglobin Concent 32 g/dL (31-37) Red Cell Distribution Width 15.0 % (11.5-14.5) Platelet Count 189 x10^3/uL (140-400) Neutrophils (%) (Auto) 77 % (31-73) Lymphocytes (%) (Auto) 13 % (24-48) Monocytes (%) (Auto) 7 % (0-9) Eosinophils (%) (Auto) 3 % (0-3) Basophils (%) (Auto) 1 % (0-3) Neutrophils # (Auto) 7.0 x10^3/uL (1.8-7.7) Lymphocytes # (Auto) 1.1 x10^3/uL (1.0-4.8) Monocytes # (Auto) 0.6 x10^3/uL (0.0-1.1) Eosinophils # (Auto) 0.3 x10^3/uL (0.0-0.7) Basophils # (Auto) 0.0 x10^3/uL (0.0-0.2) Sodium Level 139 mmol/L (136-145) Potassium Level 4.5 mmol/L (3.5-5.1) Chloride Level 102 mmol/L (98-107) Carbon Dioxide Level 31 mmol/L (21-32) Anion Gap 6 (6-14) Blood Urea Nitrogen 30 mg/dL (7-20) Creatinine 1.5 mg/dL (0.6-1.0) Estimated GFR (Cockcroft-Gault) 34.5 BUN/Creatinine Ratio 20 (6-20) Glucose Level 108 mg/dL (70-99) Calcium Level 8.7 mg/dL (8.5-10.1) Total Bilirubin 0.6 mg/dL (0.2-1.0) Aspartate Amino Transf (AST/SGOT) 16 U/L (15-37) Alanine Aminotransferase (ALT/SGPT) 16 U/L (14-59) Alkaline Phosphatase 134 U/L (46-116) Total Protein 7.4 g/dL (6.4-8.2) Albumin 2.8 g/dL (3.4-5.0) Albumin/Globulin Ratio 0.6 (1.0-1.7) O2 Saturation 97 % (92-99) Arterial Blood pH 7.42 (7.35-7.45) Arterial Blood pCO2 at Patient Temp 40 mmHg (35-46) Arterial Blood pO2 at Patient Temp 93 mmHg (65-108) Arterial Blood HCO3 25 mmol/L (21-28) Arterial Blood Base Excess 1 mmol/L (-3-3) Oxyhemoglobin 96.3 % Methemoglobin 0.2 % (0.0-1.9) Carbon Monoxide, Quantitative 0.3 % (0.0-1.9) FiO2 28 Medications Active Scripts Medications Dose Route/Sig Max Daily Dose Days Date Category Mirapex (Pramipexole Di-Hcl) 1 Mg Tablet 1 Mg PO HS 09/23/20 Reported Gabapentin 800 Mg Tablet 800 Mg PO TID 09/23/20 Reported Ferrous Sulfate 325 Mg Tablet 1 Tab PO DAILY 09/23/20 Reported Furosemide 40 Mg Tablet 1 Tab PO DAILY 09/23/20 Reported Synthroid (Levothyroxine Sodium) 200 Mcg Tablet 1 Tab PO DAILY 09/23/20 Reported Synthroid (Levothyroxine Sodium) 150 Mcg Tablet 1 Tab PO DAILY 09/23/20 Reported Hydrocodone-Apap 7.5-325 (Hydrocodone Bit/Acetaminophen) 1 Tab Tablet 1 Tab PO PRN Q6HRS PRN 09/23/20 Reported Tylenol (Acetaminophen) 325 Mg Tablet 650 Mg PO PRN Q4HRS PRN 30 08/31/20 Rx Ammonium Lactate 226 Gm Lotion 1 Jhoana TP PRN BID PRN 30 08/31/20 Rx Magnesium Oxide 400 Mg Tablet 400 Mg PO BIDAC 30 08/31/20 Rx Alprazolam 0.5 Mg Tablet 0.5 Mg PO PRN TID PRN 6 08/31/20 Rx Losartan Potassium 50 Mg Tablet 50 Mg PO DAILY 08/10/19 Reported Voltaren (Diclofenac Sodium) 100 Gm Gel..gram. 1 Jhoana TP BID 30 08/10/19 Rx Metamucil (Psyllium Husk) 0.52 Gm Capsule 1 Cap PO QODAY 30 08/08/19 Reported Colace (Docusate Sodium) 100 Mg Capsule 1 Cap PO DAILY 15 08/08/19 Reported Aspirin 81 Mg Tab.chew 81 Mg PO DAILY 08/08/19 Reported Famotidine 20 Mg Tablet 20 Mg PO BID 08/08/19 Reported Vitamin D2 (Ergocalciferol (Vitamin D2)) 50,000 Unit Capsule 50,000 Unit PO WEEKLY 11/21/15 Reported Symbicort 160-4.5 Mcg Inhaler (Budesonide/Formoterol Fumarate) 10.2 Gm Hfa.aer.ad 2 Puff IH BID 10/03/13 Reported Citalopram Hbr (Citalopram Hydrobromide) 40 Mg Tablet 40 Mg PO DAILY 10/03/13 Reported Metoprolol Succinate ( Xl ) (Metoprolol Succinate) 100 Mg Tab.er.24h 100 Mg PO DAILY 10/03/13 Reported Impression . Full note dictated possible pneumonia, continue current support, will defer antibiotic changes to ID. MERISSA CHA MD Sep 23, 2020 10:24
--- NOTE | 2020-09-23 10:38 | CONS ---
DATE OF CONSULTATION: 09/23/2020 ATTENDING PHYSICIAN: Koki Torres DO CONSULTING PHYSICIAN: Merissa Cha MD REASON FOR CONSULTATION: The patient is seen in pulmonary consultation at the request of Dr. Torres for abnormal x-ray, increasing shortness of air. HISTORY OF PRESENT ILLNESS: The patient is a 70-year-old that has had recurrent UTIs lately. She does become somewhat encephalopathic when she has had UTI. She presented with increasing shortness of air, some mental status change. She was at home with her sister. Her son who is COVID positive lives at her house. She has been shy and away from her son. She has never used tobacco, never smoked. No oxygen supplementation at home, mild asthma. She had a chest x-ray, which revealed there are patchy infiltrates, left greater than right. She had an echocardiogram, which was normal. I was asked to see her in consultation. The patient denies fever, chills, night sweats. PAST MEDICAL HISTORY: Anxiety, depression, gastroesophageal reflux, hyperlipidemia, hypertension, hypothyroidism, obesity, previous MRSA infection, previous pneumonia. PAST SURGICAL HISTORY: Hysterectomy, oophorectomy and tonsillectomy. She has had previous carpal tunnel release surgery, bariatric surgery. SOCIAL HISTORY: She has never smoked. REVIEW OF SYSTEMS: As indicated above, otherwise, a 10-point system was reviewed and negative. CURRENT MEDICATIONS: List was reviewed. ALLERGIES: SHE IS ALLERGIC TO AUGMENTIN AND CELEBREX. PHYSICAL EXAMINATION: VITAL SIGNS: Stable. O2 saturation was greater than 92%, morbid obese individual on 2 liters of oxygen supplementation. HEENT: Eyes: The sclerae were nonicteric. NECK: Jugular venous distention was not elevated. No lymphadenopathy. CHEST: Full expansion. LUNGS: Adequate flow with no wheezes. CARDIOVASCULAR: Regular rate and rhythm with S1, S2, no S3. ABDOMEN: Soft, nontender, nondistended. EXTREMITIES: No clubbing, cyanosis or edema. IMAGING: Chest x-ray revealed some ill-defined infiltrates. LABORATORY DATA: Reviewed. White count was normal. Hemoglobin and hematocrit were noted. UA was noted positive. Arterial blood gas, pH of 7.42, PaCO2 of 40, PaO2 of 93. IMPRESSION: 1. Abnormal x-ray compatible with suspect atelectasis, maybe mild fluid congestion. 2. Progressive dyspnea, multifactorial, mostly related to weakness, obesity. 3. Possible bacterial pneumonia. 4. Recent COVID-19 exposure. 5. Metabolic and toxic encephalopathy. 6. Recurrent urinary tract infection. PLAN: 1. We will continue current empiric antibiotics. 2. Follow up on SARS-CoV-2. 3. Continue oxygen supplementation. 4. Wound care has been consulted. 5. Antibiotic changes per Infectious Disease service. I do appreciate the privilege in sharing in the patient's care. MERISSA CHA MD DR: AMBREEN/radha JOB#: [id number] / [id number]
--- NOTE | 2020-09-23 11:58 | PDOC ---
Infectious Disease Note Vital Signs: Vital Signs Vital Signs Date Time Temp Pulse Resp B/P (MAP) Pulse Ox O2 Delivery O2 Flow Rate FiO2 09/23/20 11:40 20 98 Nasal Cannula 2.0 09/23/20 11:00 98.1 78 98/44 (62) 98.1 Medications: Inpatient Meds: Current Medications Medications (Trade) Dose Ordered Sig/Doris Start Time Stop Time Status Last Admin Dose Admin Acetaminophen (Tylenol) 650 mg PRN Q4HRS PRN 09/23/20 02:00 Acetaminophen/ Hydrocodone Bitart (Lortab 7.5/325) 1 tab PRN Q6HRS PRN 09/23/20 02:00 09/23/20 11:40 1 TAB Albuterol Sulfate (Ventolin Neb Soln) 2.5 mg RTQID 09/23/20 08:00 Alprazolam (Xanax) 0.5 mg PRN TID PRN 09/23/20 02:00 Aspirin (Aspirin Chewable) 81 mg DAILY 09/23/20 09:00 09/23/20 08:40 81 MG Budesonide (Pulmicort) 0.5 mg RTBID 09/23/20 08:00 Ceftriaxone Sodium (Rocephin) 1 gm 1X ONCE 09/22/20 12:30 09/22/20 12:31 DC 09/22/20 12:49 1 GM Citalopram Hydrobromide (CeleXA) 40 mg DAILY 09/23/20 09:00 09/23/20 08:40 40 MG Diclofenac Sodium (Voltaren) 1 soham BID 09/23/20 09:00 09/23/20 08:40 1 SOHAM Docusate Sodium (Colace) 100 mg DAILY 09/23/20 09:00 09/23/20 08:40 100 MG Ergocalciferol (Vitamin D2) 50,000 unit WEEKLY 09/25/20 09:00 Famotidine (Pepcid) 20 mg DAILY 09/23/20 09:00 09/23/20 08:40 20 MG Ferrous Sulfate (Feosol) 325 mg DAILY 09/23/20 09:00 09/23/20 08:40 325 MG Furosemide (Lasix) 40 mg DAILY 09/23/20 09:00 09/23/20 08:40 40 MG Gabapentin (Neurontin) 800 mg BID 09/23/20 09:00 09/23/20 08:40 800 MG Lactic Acid (Lac-Hydrin) 1 soham PRN BID PRN 09/23/20 02:00 Levothyroxine Sodium (Synthroid) 350 mcg DAILY06 09/23/20 06:00 09/23/20 05:57 350 MCG Losartan Potassium (Cozaar) 50 mg DAILY 09/23/20 09:00 Magnesium Oxide (Magnesium Oxide) 400 mg BIDAC 09/23/20 07:30 09/23/20 05:58 400 MG Metoprolol Succinate (Toprol Xl) 100 mg DAILY 09/23/20 09:00 Non-Formulary Medication (Levothyroxine Sodium (Synthroid)) 1 tab DAILY 09/23/20 09:00 UNV Pramipexole Dihydrochloride (miraPEX) 1 mg HS 09/23/20 21:00 Psyllium Hydrophilic Mucilloid (Metamucil Fiber Packet) 1 pkt QODAY 09/23/20 09:00 09/23/20 08:39 1 PKT Sodium Chloride 1,000 ml @ 75 mls/hr [id number] 09/22/20 16:30 09/23/20 00:16 75 MLS/HR Vancomycin HCl (Vanco Per Pharmacy) 1 each PRN DAILY PRN 09/22/20 20:15 09/23/20 02:05 1 EACH Vancomycin HCl (Vancomycin Trough Level) 1 each 1X ONCE 09/24/20 20:30 09/24/20 20:31 Vancomycin HCl 1.25 gm/Sodium Chloride 250 ml @ 166.667 mls/hr 1X ONCE 09/22/20 20:00 09/22/20 21:29 UNV Vancomycin HCl 1.5 gm/Sodium Chloride 500 ml @ 250 mls/hr Q24H 09/23/20 21:00 Vancomycin HCl 1 gm/Sodium Chloride 250 ml @ 250 mls/hr 1X ONCE 09/22/20 21:15 09/22/20 22:14 UNV Vancomycin HCl 2 gm/Sodium Chloride 500 ml @ 250 mls/hr 1X ONCE 09/22/20 21:00 09/22/20 22:59 DC 09/22/20 21:20 250 MLS/HR Labs: Lab Laboratory Tests Test 09/22/20 19:45 O2 Saturation 97 % (92-99) Arterial Blood pH 7.42 (7.35-7.45) Arterial Blood pCO2 at Patient Temp 40 mmHg (35-46) Arterial Blood pO2 at Patient Temp 93 mmHg (65-108) Arterial Blood HCO3 25 mmol/L (21-28) Arterial Blood Base Excess 1 mmol/L (-3-3) Oxyhemoglobin 96.3 % Methemoglobin 0.2 % (0.0-1.9) Carbon Monoxide, Quantitative 0.3 % (0.0-1.9) FiO2 28 Objective: Assessment: pt seen and examined Plan: Plan of Care [id number] Thank you OTILIA EVANGELISTA MD Sep 23, 2020 11:58
--- NOTE | 2020-09-23 11:59 | PDOC ---
PROGRESS NOTES Date of Service: DATE: 09/23/20 TIME: 11:59 Chief Complaint Chief Complaint ASSESSMENT AND PLAN: Urinary tract infection, acute metabolic encephalopathy,, improved possible COVID-19, Patchy wedge-shaped opacities in the medial left upper lung and right midlung, may represent multifocal infection/inflammation. Atypical edema may also result in this appearance. azotemia, acute renal injury UTI History of kidney stone. Possible bacterial pneumonia. Recent home contacrt COVID-19 exposure. admitted. plan IV fluids, IV antibiotics, ROCEPHIN 1 GM Q 24 HRS home medications, DVT prophylaxis. Consult Infectious Disease. D/W RN History of Present Illness History of Present Illness HISTORY OF PRESENT ILLNESS: The patient is a pleasant 70-year-old female who presents to the ER with mental status change. While in the ER, she was noted to have a UTI. I discussed the case with ER physician. We are going to admit the patient, give her IV fluids, IV antibiotics and rule out COVID-19. PAST MEDICAL HISTORY: Asthma, anxiety, CHF, depression, GERD, hyperlipidemia, hypertension, hypothyroidism, MRSA, pneumonia, UTI, hep C, neuropathy, foot wound, , hysterectomy, oophorectomy, tonsillectomy, carpal tunnel surgery, weight loss surgery.Anxiety, depression, gastroesophageal reflux, hyperlipidemia, hypertension, hypothyroidism, obesity, previous MRSA infection, previous pneumonia. PAST SURGICAL HISTORY: Hysterectomy, oophorectomy and tonsillectomy. She has had previous carpal tunnel release surgery, bariatric surgery. SOCIAL HISTORY: She has never smoked. ALLERGIES: AMOXICILLIN, CELEBREX, AUGMENTIN. FAMILY HISTORY: Diabetes. SOCIAL HISTORY: She does not drink, smoke or take drugs. MEDICATIONS: Reviewed, please refer to the MRAD. REVIEW OF SYSTEMS: Unable to obtain. She is obtunded. Vitals Vitals Vital Signs Date Time Temp Pulse Resp B/P (MAP) Pulse Ox O2 Delivery O2 Flow Rate FiO2 09/23/20 11:40 20 98 Nasal Cannula 2.0 09/23/20 11:00 98.1 78 98/44 (62) 98.1 Physical Exam Physical Exam VITALS: Within normal limits and are stable. GENERAL: She is obtunded. HEENT: Normal cephalic atraumatic, external auditory canals are patent. EYES: Extraocular muscles are intact, pupils are equally round and reactive to light and accommodation. MUSCULOSKELETAL: Well developed, well nourished, good range of motion. ENDOCRINE: No thyromegaly was palpated. LYMPHATICS: No cervical chain or axillary nodes were noted. HEMATOPOIETIC: No bruising. NECK: Supple, no JVD, no thyromegaly was noted. LUNGS: Clear to auscultation in all lung davidson without rhonchi or wheezing. HEART: RRR, S1, S2 present. Peripheral pulses intact, no obvious murmurs were noted. ABDOMEN: Soft, nontender. Positive bowel sounds no organomegaly, normal bowel sounds. EXTREMITIES: Without any cyanosis, clubbing, or edema. Pedal pulses intact, Homans sign is negative. NEUROLOGIC: She is obtunded. PSYCHIATRIC: She is obtunded. SKIN: No ulcerations or rashes, good skin turgor, no jaundice. VASCULAR: Good capillary refill, neurovascular bundle appears to be intact. General: Cooperative Lungs: Clear, Wheezing Labs LABS PATIENT: PILLO JEROMEOUNT: [id number] : 1950 LOCATION: [address] [place] [address] AGE: 70 SEX: F EXAM STATUS: ADM IN ORD. PHYSICIAN: JORGE ALBERTO HELTON III, DO REASON: tachypnea, ams PROCEDURE: PORTABLE CHEST 1V EXAM: AP View of the chest DATE: 09/22/2020 7:35 PM INDICATION: Reason: tachypnea, ams / Spl. Instructions: / History: COMPARISON: No Prior FINDINGS: Heart is mildly enlarged. Aorta is tortuous. Patchy wedge-shaped opacities in the medial left upper lung and right midlung. No pleural effusion or pneumothorax. IMPRESSION: 1. Patchy wedge-shaped opacities in the medial left upper lung and right midlung, may represent multifocal infection/inflammation. Atypical edema may also result in this appearance. Electronically signed by: Wayne Rangel MD (09/22/2020 8:34 PM) [facility] DICTATED and SIGNED BY: WAYNE RANGEL MD DATE: 09/22/[id number] 0 Laboratory Tests Test 09/22/20 19:45 O2 Saturation 97 % (92-99) Arterial Blood pH 7.42 (7.35-7.45) Arterial Blood pCO2 at Patient Temp 40 mmHg (35-46) Arterial Blood pO2 at Patient Temp 93 mmHg (65-108) Arterial Blood HCO3 25 mmol/L (21-28) Arterial Blood Base Excess 1 mmol/L (-3-3) Oxyhemoglobin 96.3 % Methemoglobin 0.2 % (0.0-1.9) Carbon Monoxide, Quantitative 0.3 % (0.0-1.9) FiO2 28 Assessment and Plan Assessmemt and Plan Problems Medical Problems: (1) Altered mental status Status: Acute Comment Review of Relevant I have reviewed the following items mikael (where applicable) has been applied. Labs Laboratory Tests Test 09/22/20 11:00 09/22/20 11:15 09/22/20 19:45 Urine Collection Type U cath Urine Color [place] Urine Clarity Clear Urine pH 5.5 (<5.0-8.0) Urine Specific [place] 1.020 (1.000-1.030) Urine Protein Negative mg/dL (NEG-TRACE) Urine Glucose (UA) Negative mg/dL (NEG) Urine Ketones (Stick) Negative mg/dL (NEG) Urine Blood Trace (NEG) Urine Nitrite Positive (NEG) Urine Bilirubin Small (NEG) Urine Urobilinogen Dipstick 1.0 mg/dL (0.2 mg/dL) Urine Leukocyte Esterase Moderate (NEG) Urine RBC Rare /HPF (0-2) Urine WBC 20-40 /HPF (0-4) Urine Squamous Epithelial Cells Few /LPF Urine Bacteria Many /HPF (0-FEW) Urine Hyaline Casts Occasional /HPF Urine Mucus Slight /LPF White Blood Count 9.1 x10^3/uL (4.0-11.0) Red Blood Count 3.35 x10^6/uL (3.50-5.40) Hemoglobin 10.3 g/dL (12.0-15.5) Hematocrit 31.7 % (36.0-47.0) Mean Corpuscular Volume 95 fL (79-100) Mean Corpuscular Hemoglobin 31 pg (25-35) Mean Corpuscular Hemoglobin Concent 32 g/dL (31-37) Red Cell Distribution Width 15.0 % (11.5-14.5) Platelet Count 189 x10^3/uL (140-400) Neutrophils (%) (Auto) 77 % (31-73) Lymphocytes (%) (Auto) 13 % (24-48) Monocytes (%) (Auto) 7 % (0-9) Eosinophils (%) (Auto) 3 % (0-3) Basophils (%) (Auto) 1 % (0-3) Neutrophils # (Auto) 7.0 x10^3/uL (1.8-7.7) Lymphocytes # (Auto) 1.1 x10^3/uL (1.0-4.8) Monocytes # (Auto) 0.6 x10^3/uL (0.0-1.1) Eosinophils # (Auto) 0.3 x10^3/uL (0.0-0.7) Basophils # (Auto) 0.0 x10^3/uL (0.0-0.2) Sodium Level 139 mmol/L (136-145) Potassium Level 4.5 mmol/L (3.5-5.1) Chloride Level 102 mmol/L (98-107) Carbon Dioxide Level 31 mmol/L (21-32) Anion Gap 6 (6-14) Blood Urea Nitrogen 30 mg/dL (7-20) Creatinine 1.5 mg/dL (0.6-1.0) Estimated GFR (Cockcroft-Gault) 34.5 BUN/Creatinine Ratio 20 (6-20) Glucose Level 108 mg/dL (70-99) Calcium Level 8.7 mg/dL (8.5-10.1) Total Bilirubin 0.6 mg/dL (0.2-1.0) Aspartate Amino Transf (AST/SGOT) 16 U/L (15-37) Alanine Aminotransferase (ALT/SGPT) 16 U/L (14-59) Alkaline Phosphatase 134 U/L (46-116) Total Protein 7.4 g/dL (6.4-8.2) Albumin 2.8 g/dL (3.4-5.0) Albumin/Globulin Ratio 0.6 (1.0-1.7) O2 Saturation 97 % (92-99) Arterial Blood pH 7.42 (7.35-7.45) Arterial Blood pCO2 at Patient Temp 40 mmHg (35-46) Arterial Blood pO2 at Patient Temp 93 mmHg (65-108) Arterial Blood HCO3 25 mmol/L (21-28) Arterial Blood Base Excess 1 mmol/L (-3-3) Oxyhemoglobin 96.3 % Methemoglobin 0.2 % (0.0-1.9) Carbon Monoxide, Quantitative 0.3 % (0.0-1.9) FiO2 28 Laboratory Tests Test 09/22/20 19:45 O2 Saturation 97 % (92-99) Arterial Blood pH 7.42 (7.35-7.45) Arterial Blood pCO2 at Patient Temp 40 mmHg (35-46) Arterial Blood pO2 at Patient Temp 93 mmHg (65-108) Arterial Blood HCO3 25 mmol/L (21-28) Arterial Blood Base Excess 1 mmol/L (-3-3) Oxyhemoglobin 96.3 % Methemoglobin 0.2 % (0.0-1.9) Carbon Monoxide, Quantitative 0.3 % (0.0-1.9) FiO2 28 Medications Current Medications Ceftriaxone Sodium (Rocephin) 1 gm 1X ONCE IVP Last administered on 09/22/20at 12:49; Start 09/22/20 at 12:30; Stop 09/22/20 at 12:31; Status DC Sodium Chloride 1,000 ml @ 75 mls/hr [id number] IV Last administered on 09/23/20at 00:16; Start 09/22/20 at 16:30 Vancomycin HCl 1.25 gm/Sodium Chloride 250 ml @ 166.667 mls/hr 1X ONCE IV ; Start 09/22/20 at 20:00; Stop 09/22/20 at 21:29; Status UNV Vancomycin HCl (Vanco Per Pharmacy) 1 each PRN DAILY PRN MC SEE COMMENTS Last administered on 09/23/20at 02:05; Start 09/22/20 at 20:15 Vancomycin HCl 2 gm/Sodium Chloride 500 ml @ 250 mls/hr 1X ONCE IV Last administered on 09/22/20at 21:20; Start 09/22/20 at 21:00; Stop 09/22/20 at 22:59; Status DC Vancomycin HCl 1 gm/Sodium Chloride 250 ml @ 250 mls/hr 1X ONCE IV ; Start 09/22/20 at 21:15; Stop 09/22/20 at 22:14; Status UNV Vancomycin HCl 1.5 gm/Sodium Chloride 500 ml @ 250 mls/hr Q24H IV ; Start 09/23/20 at 21:00 Vancomycin HCl (Vancomycin Trough Level) 1 each 1X ONCE MC ; Start 09/24/20 at 20:30; Stop 09/24/20 at 20:31 Acetaminophen (Tylenol) 650 mg PRN Q4HRS PRN PO TEMP OVER 100.4F; Start 09/23/20 at 02:00 Alprazolam (Xanax) 0.5 mg PRN TID PRN PO ANXIETY / AGITATION; Start 09/23/20 at 02:00 Lactic Acid (Lac-Hydrin) 1 soham PRN BID PRN TP DRY SKIN / SCALING; Start 09/23/20 at 02:00 Aspirin (Aspirin Chewable) 81 mg DAILY PO Last administered on 09/23/20at 08:40; Start 09/23/20 at 09:00 Diclofenac Sodium (Voltaren) 1 soham BID TP Last administered on 09/23/20at 08:40; Start 09/23/20 at 09:00 Docusate Sodium (Colace) 100 mg DAILY PO Last administered on 09/23/20at 08:40; Start 09/23/20 at 09:00 Ergocalciferol (Vitamin D2) 50,000 unit WEEKLY PO ; Start 09/25/20 at 09:00 Famotidine (Pepcid) 20 mg DAILY PO Last administered on 09/23/20at 08:40; Start 09/23/20 at 09:00 Ferrous Sulfate (Feosol) 325 mg DAILY PO Last administered on 09/23/20at 08:40; Start 09/23/20 at 09:00 Furosemide (Lasix) 40 mg DAILY PO Last administered on 09/23/20at 08:40; Start 09/23/20 at 09:00 Acetaminophen/ Hydrocodone Bitart (Lortab 7.5/325) 1 tab PRN Q6HRS PRN PO MODERATE PAIN 4-6 Last administered on 09/23/20at 11:40; Start 09/23/20 at 02:00 Levothyroxine Sodium (Synthroid) 300 mcg DAILY06 PO ; Start 09/23/20 at 06:00; Status Cancel Losartan Potassium (Cozaar) 50 mg DAILY PO ; Start 09/23/20 at 09:00 Magnesium Oxide (Magnesium Oxide) 400 mg BIDAC PO Last administered on 09/23/20at 05:58; Start 09/23/20 at 07:30 Metoprolol Succinate (Toprol Xl) 100 mg DAILY PO ; Start 09/23/20 at 09:00 Budesonide (Pulmicort) 0.5 mg RTBID NEB ; Start 09/23/20 at 08:00 Citalopram Hydrobromide (CeleXA) 40 mg DAILY PO Last administered on 09/23/20at 08:40; Start 09/23/20 at 09:00 Gabapentin (Neurontin) 800 mg BID PO Last administered on 09/23/20at 08:40; Start 09/23/20 at 09:00 Non-Formulary Medication (Levothyroxine Sodium (Synthroid)) 1 tab DAILY PO ; Start 09/23/20 at 09:00; Status UNV Pramipexole Dihydrochloride (miraPEX) 1 mg HS PO ; Start 09/23/20 at 21:00 Psyllium Hydrophilic Mucilloid (Metamucil Fiber Packet) 1 pkt QODAY PO Last administered on 09/23/20at 08:39; Start 09/23/20 at 09:00 Albuterol Sulfate (Ventolin Neb Soln) 2.5 mg RTQID NEB ; Start 09/23/20 at 08:00 Levothyroxine Sodium (Synthroid) 350 mcg DAILY06 PO Last administered on 09/23/20at 05:57; Start 09/23/20 at 06:00 Active Scripts Active Tylenol (Acetaminophen) 325 Mg Tablet 650 Mg PO PRN Q4HRS PRN 30 Days Ammonium Lactate 226 Gm Lotion 1 Soham TP PRN BID PRN 30 Days Magnesium Oxide 400 Mg Tablet 400 Mg PO BIDAC 30 Days Alprazolam 0.5 Mg Tablet 0.5 Mg PO PRN TID PRN 6 Days Voltaren (Diclofenac Sodium) 100 Gm Gel..gram. 1 Soham TP BID 30 Days Reported Mirapex (Pramipexole Di-Hcl) 1 Mg Tablet 1 Mg PO HS Gabapentin 800 Mg Tablet 800 Mg PO TID Ferrous Sulfate 325 Mg Tablet 1 Tab PO DAILY Furosemide 40 Mg Tablet 1 Tab PO DAILY Synthroid (Levothyroxine Sodium) 200 Mcg Tablet 1 Tab PO DAILY Synthroid (Levothyroxine Sodium) 150 Mcg Tablet 1 Tab PO DAILY Hydrocodone-Apap 7.5-325 (Hydrocodone Bit/Acetaminophen) 1 Tab Tablet 1 Tab PO PRN Q6HRS PRN Losartan Potassium 50 Mg Tablet 50 Mg PO DAILY Metamucil (Psyllium Husk) 0.52 Gm Capsule 1 Cap PO QODAY 30 Days Colace (Docusate Sodium) 100 Mg Capsule 1 Cap PO DAILY 15 Days Aspirin 81 Mg Tab.chew 81 Mg PO DAILY Famotidine 20 Mg Tablet 20 Mg PO BID Vitamin D2 (Ergocalciferol (Vitamin D2)) 50,000 Unit Capsule 50,000 Unit PO WEEKLY Symbicort 160-4.5 Mcg Inhaler (Budesonide/Formoterol Fumarate) 10.2 Gm Hfa.aer.ad 2 Puff IH BID Citalopram Hbr (Citalopram Hydrobromide) 40 Mg Tablet 40 Mg PO DAILY Metoprolol Succinate ( Xl ) (Metoprolol Succinate) 100 Mg Tab.er.24h 100 Mg PO DAILY Vitals/I & O Vital Sign - Last 24 Hours 09/22/20 09/22/20 09/22/20 09/22/20 12:34 13:00 14:00 15:00 Pulse 78 78 72 74 Pulse Ox 95 100 89 94 09/22/20 09/22/20 09/22/20 09/22/20 15:20 15:40 18:13 19:29 Temp 98.4 97.6 98.4 97.6 Pulse 72 68 69 84 Resp 15 17 40 B/P (MAP) 79/34 (49) 79/45 (56) 103/50 (67) Pulse Ox 96 95 97 96 O2 Delivery Nasal Cannula Nasal Cannula Nasal Cannula O2 Flow Rate 2.0 2.0 2.0 09/22/20 09/22/20 09/22/20 09/22/20 19:44 19:45 19:45 20:00 Temp 99.3 99.3 Pulse 79 Resp 20 35 B/P (MAP) 90/57 (68) Pulse Ox 95 96 O2 Delivery Nasal Cannula Nasal Cannula Nasal Cannula O2 Flow Rate 2.0 2.0 2.0 09/22/20 09/22/20 09/23/20 09/23/20 20:00 23:59 00:50 02:29 Temp 97.8 97.8 Pulse 76 76 79 Resp 30 20 18 22 B/P (MAP) 79/46 (57) 92/44 (60) 101/56 (71) Pulse Ox 94 90 96 O2 Delivery Nasal Cannula Nasal Cannula Room Air Room Air O2 Flow Rate 2.0 2.0 09/23/20 09/23/20 09/23/20 09/23/20 02:44 03:30 07:00 08:13 Temp 98.4 98.4 Pulse 78 70 Resp 22 18 22 B/P (MAP) 103/54 (70) 108/49 (68) Pulse Ox 94 94 93 O2 Delivery Room Air Nasal Cannula Room Air Nasal Cannula O2 Flow Rate 2.0 2.0 09/23/20 09/23/20 09/23/20 09/23/20 08:41 08:41 11:00 11:40 Temp 98.1 98.1 Pulse 70 70 78 Resp 22 20 B/P (MAP) 108/49 108/49 98/44 (62) Pulse Ox 95 98 O2 Delivery Room Air Nasal Cannula O2 Flow Rate 2.0 Intake and Output 09/22/20 09/22/20 09/23/20 15:00 23:00 07:00 Intake Total 0 ml 1810 ml Output Total 375 ml Balance 0 ml 1435 ml Justicifation of Admission Dx: Justifications for Admission: Justification of Admission Dx: N/A LINDSEY BRAR MD Sep 23, 2020 11:59
[2020-09-23] MEDS: cefTRIAXone IV Push 1 GM VIAL. IVP SCH (12:44)
--- NOTE | 2020-09-23 13:09 | PDOC2 ---
NEUROLOGY CONSULT Date of Service DOS: DATE: 09/23/20 TIME: 13:02 Reason for Consult Reason for Consult: Altered mental status Referring Physician Referring Physician: Dr. Arora Source Source: Chart review, Patient History of Present Illness History of Present Illness The patient is a 70-year-old right-handed female who had altered mental status last night. She returned to normal early this morning. She at baseline gets around with a cane or a walker. She has been found to have a urinary tract infection. She has been in and out of assisted in hospitals with cellulitis. She has had prior urinary tract infections. There is no history of stroke, seizure, or head injury. Past Medical History Cardiovascular: CHF, HTN, Hyperlipidemia Pulmonary: Asthma, Pneumonia, Other (Sleep apnea) CENTRAL NERVOUS SYSTEM: Periperal neuropathy GI: GERD Hepatobiliary: Hep A/B/C Psych: Anxiety, Depression, Panic Musculoskeletal: low back pain Renal/: UTI, Other (Nephrolithiasis) Endocrine: Hypothyroidism Dermatology: Cellulitis Past Surgical History Past Surgical History: , Hysterectomy, Other (wrist, knee scope ,right carpal tunnel, bariatric, left breast biopsy) Family History Family History: Other (Pneumonia) Social History Social History , no alcohol or tobacco Current Medications Current Medications Current Medications Ceftriaxone Sodium (Rocephin) 1 gm 1X ONCE IVP Last administered on 09/22/20at 12:49; Start 09/22/20 at 12:30; Stop 09/22/20 at 12:31; Status DC Sodium Chloride 1,000 ml @ 75 mls/hr [id number] IV Last administered on 09/23/20at 00:16; Start 09/22/20 at 16:30 Vancomycin HCl 1.25 gm/Sodium Chloride 250 ml @ 166.667 mls/hr 1X ONCE IV ; Start 09/22/20 at 20:00; Stop 09/22/20 at 21:29; Status UNV Vancomycin HCl (Vanco Per Pharmacy) 1 each PRN DAILY PRN MC SEE COMMENTS Last administered on 09/23/20at 02:05; Start 09/22/20 at 20:15 Vancomycin HCl 2 gm/Sodium Chloride 500 ml @ 250 mls/hr 1X ONCE IV Last administered on 09/22/20at 21:20; Start 09/22/20 at 21:00; Stop 09/22/20 at 22:59; Status DC Vancomycin HCl 1 gm/Sodium Chloride 250 ml @ 250 mls/hr 1X ONCE IV ; Start 09/22/20 at 21:15; Stop 09/22/20 at 22:14; Status UNV Vancomycin HCl 1.5 gm/Sodium Chloride 500 ml @ 250 mls/hr Q24H IV ; Start 09/23/20 at 21:00 Vancomycin HCl (Vancomycin Trough Level) 1 each 1X ONCE MC ; Start 09/24/20 at 20:30; Stop 09/24/20 at 20:31 Acetaminophen (Tylenol) 650 mg PRN Q4HRS PRN PO TEMP OVER 100.4F; Start 09/23/20 at 02:00 Alprazolam (Xanax) 0.5 mg PRN TID PRN PO ANXIETY / AGITATION; Start 09/23/20 at 02:00 Lactic Acid (Lac-Hydrin) 1 jhoana PRN BID PRN TP DRY SKIN / SCALING; Start 09/23/20 at 02:00 Aspirin (Aspirin Chewable) 81 mg DAILY PO Last administered on 09/23/20at 08:40; Start 09/23/20 at 09:00 Diclofenac Sodium (Voltaren) 1 jhoana BID TP Last administered on 09/23/20at 08:40; Start 09/23/20 at 09:00 Docusate Sodium (Colace) 100 mg DAILY PO Last administered on 09/23/20at 08:40; Start 09/23/20 at 09:00 Ergocalciferol (Vitamin D2) 50,000 unit WEEKLY PO ; Start 09/25/20 at 09:00 Famotidine (Pepcid) 20 mg DAILY PO Last administered on 09/23/20at 08:40; Start 09/23/20 at 09:00 Ferrous Sulfate (Feosol) 325 mg DAILY PO Last administered on 09/23/20at 08:40; Start 09/23/20 at 09:00 Furosemide (Lasix) 40 mg DAILY PO Last administered on 09/23/20at 08:40; Start 09/23/20 at 09:00 Acetaminophen/ Hydrocodone Bitart (Lortab 7.5/325) 1 tab PRN Q6HRS PRN PO MODERATE PAIN 4-6 Last administered on 09/23/20at 11:40; Start 09/23/20 at 02:00 Levothyroxine Sodium (Synthroid) 300 mcg DAILY06 PO ; Start 09/23/20 at 06:00; Status Cancel Losartan Potassium (Cozaar) 50 mg DAILY PO ; Start 09/23/20 at 09:00 Magnesium Oxide (Magnesium Oxide) 400 mg BIDAC PO Last administered on 09/23/20at 05:58; Start 09/23/20 at 07:30 Metoprolol Succinate (Toprol Xl) 100 mg DAILY PO ; Start 09/23/20 at 09:00 Budesonide (Pulmicort) 0.5 mg RTBID NEB ; Start 09/23/20 at 08:00 Citalopram Hydrobromide (CeleXA) 40 mg DAILY PO Last administered on 09/23/20at 08:40; Start 09/23/20 at 09:00 Gabapentin (Neurontin) 800 mg BID PO Last administered on 09/23/20at 08:40; Start 09/23/20 at 09:00 Non-Formulary Medication (Levothyroxine Sodium (Synthroid)) 1 tab DAILY PO ; Start 09/23/20 at 09:00; Status UNV Pramipexole Dihydrochloride (miraPEX) 1 mg HS PO ; Start 09/23/20 at 21:00 Psyllium Hydrophilic Mucilloid (Metamucil Fiber Packet) 1 pkt QODAY PO Last administered on 09/23/20at 08:39; Start 09/23/20 at 09:00 Albuterol Sulfate (Ventolin Neb Soln) 2.5 mg RTQID NEB ; Start 09/23/20 at 08:00 Levothyroxine Sodium (Synthroid) 350 mcg DAILY06 PO Last administered on 09/23/20at 05:57; Start 09/23/20 at 06:00 Ceftriaxone Sodium (Rocephin) 1 gm Q24H IVP Last administered on 09/23/20at 12:44; Start 09/23/20 at 13:00 Active Scripts Active Tylenol (Acetaminophen) 325 Mg Tablet 650 Mg PO PRN Q4HRS PRN 30 Days Ammonium Lactate 226 Gm Lotion 1 Jhoana TP PRN BID PRN 30 Days Magnesium Oxide 400 Mg Tablet 400 Mg PO BIDAC 30 Days Alprazolam 0.5 Mg Tablet 0.5 Mg PO PRN TID PRN 6 Days Voltaren (Diclofenac Sodium) 100 Gm Gel..gram. 1 Jhoana TP BID 30 Days Reported Mirapex (Pramipexole Di-Hcl) 1 Mg Tablet 1 Mg PO HS Gabapentin 800 Mg Tablet 800 Mg PO TID Ferrous Sulfate 325 Mg Tablet 1 Tab PO DAILY Furosemide 40 Mg Tablet 1 Tab PO DAILY Synthroid (Levothyroxine Sodium) 200 Mcg Tablet 1 Tab PO DAILY Synthroid (Levothyroxine Sodium) 150 Mcg Tablet 1 Tab PO DAILY Hydrocodone-Apap 7.5-325 (Hydrocodone Bit/Acetaminophen) 1 Tab Tablet 1 Tab PO PRN Q6HRS PRN Losartan Potassium 50 Mg Tablet 50 Mg PO DAILY Metamucil (Psyllium Husk) 0.52 Gm Capsule 1 Cap PO QODAY 30 Days Colace (Docusate Sodium) 100 Mg Capsule 1 Cap PO DAILY 15 Days Aspirin 81 Mg Tab.chew 81 Mg PO DAILY Famotidine 20 Mg Tablet 20 Mg PO BID Vitamin D2 (Ergocalciferol (Vitamin D2)) 50,000 Unit Capsule 50,000 Unit PO WEEKLY Symbicort 160-4.5 Mcg Inhaler (Budesonide/Formoterol Fumarate) 10.2 Gm Hfa.aer.ad 2 Puff IH BID Citalopram Hbr (Citalopram Hydrobromide) 40 Mg Tablet 40 Mg PO DAILY Metoprolol Succinate ( Xl ) (Metoprolol Succinate) 100 Mg Tab.er.24h 100 Mg PO DAILY Allergies Allergies: Coded Allergies: amoxicillin trihydrate (Verified Allergy, Intermediate, 03/20/18) HAS TOLERATED CTX celecoxib (Verified Allergy, Intermediate, 10/15/14) potassium clavulanate (Verified Allergy, Intermediate, 10/15/14) I S O L A T I O N *CONTACT* (Verified Allergy, Unknown, 02/11/15) mrsa + ROS Review of System Negative for fever, chills, weight loss, shortness of breath, chest pain, indigestion, hematochezia, melena, and dysuria. Full 14-point review of systems is negative. Physical Exam Physical Examination General: Well-developed, well-nourished white female in no acute distress HEENT: Normocephalic andatraumatic. Temporal arteriespulsatile and nontender. Neck: Supple without bruit, no meningismus Musculoskeletal: Stability:see neurologic. Gait exam:see neurologic. Tone:see neurologic.Strength:see neurologic. Neurological: Mental Status:intact, orientation, memory, attention span/concentration, language, fund of knowledge normal. Cranial Nerves:Pupils equal and reactive to light, extraocular movements areintact, visual davidson are full to confrontation. Facial sensation is normal. There is no facial asymmetry. Vestibulo-ocular reflex is intact. Palate elevates and tongue protrudes in midline. All other cranial related problems are negative except as mentioned before.Reflexes:1+ and symmetric with flexor plantar responses. Motor:4/5 strength with normal tone and bulk. Coordination:Finger-nose finger and [id number] testing are normal. Rapid alternating movements and fine finger movements are intact. Gait:not tested. Sensory:Stocking loss. Vitals VITALS Vital Signs Date Time Temp Pulse Resp B/P (MAP) Pulse Ox O2 Delivery O2 Flow Rate FiO2 09/23/20 12:44 20 98 Nasal Cannula 2.0 09/23/20 11:00 98.1 78 98/44 (62) 98.1 Labs Labs Laboratory Tests Test 09/22/20 11:00 09/22/20 11:15 09/22/20 19:45 Urine Collection Type U cath Urine Color [place] Urine Clarity Clear Urine pH 5.5 (<5.0-8.0) Urine Specific [place] 1.020 (1.000-1.030) Urine Protein Negative mg/dL (NEG-TRACE) Urine Glucose (UA) Negative mg/dL (NEG) Urine Ketones (Stick) Negative mg/dL (NEG) Urine Blood Trace (NEG) Urine Nitrite Positive (NEG) Urine Bilirubin Small (NEG) Urine Urobilinogen Dipstick 1.0 mg/dL (0.2 mg/dL) Urine Leukocyte Esterase Moderate (NEG) Urine RBC Rare /HPF (0-2) Urine WBC 20-40 /HPF (0-4) Urine Squamous Epithelial Cells Few /LPF Urine Bacteria Many /HPF (0-FEW) Urine Hyaline Casts Occasional /HPF Urine Mucus Slight /LPF White Blood Count 9.1 x10^3/uL (4.0-11.0) Red Blood Count 3.35 x10^6/uL (3.50-5.40) Hemoglobin 10.3 g/dL (12.0-15.5) Hematocrit 31.7 % (36.0-47.0) Mean Corpuscular Volume 95 fL (79-100) Mean Corpuscular Hemoglobin 31 pg (25-35) Mean Corpuscular Hemoglobin Concent 32 g/dL (31-37) Red Cell Distribution Width 15.0 % (11.5-14.5) Platelet Count 189 x10^3/uL (140-400) Neutrophils (%) (Auto) 77 % (31-73) Lymphocytes (%) (Auto) 13 % (24-48) Monocytes (%) (Auto) 7 % (0-9) Eosinophils (%) (Auto) 3 % (0-3) Basophils (%) (Auto) 1 % (0-3) Neutrophils # (Auto) 7.0 x10^3/uL (1.8-7.7) Lymphocytes # (Auto) 1.1 x10^3/uL (1.0-4.8) Monocytes # (Auto) 0.6 x10^3/uL (0.0-1.1) Eosinophils # (Auto) 0.3 x10^3/uL (0.0-0.7) Basophils # (Auto) 0.0 x10^3/uL (0.0-0.2) Sodium Level 139 mmol/L (136-145) Potassium Level 4.5 mmol/L (3.5-5.1) Chloride Level 102 mmol/L (98-107) Carbon Dioxide Level 31 mmol/L (21-32) Anion Gap 6 (6-14) Blood Urea Nitrogen 30 mg/dL (7-20) Creatinine 1.5 mg/dL (0.6-1.0) Estimated GFR (Cockcroft-Gault) 34.5 BUN/Creatinine Ratio 20 (6-20) Glucose Level 108 mg/dL (70-99) Calcium Level 8.7 mg/dL (8.5-10.1) Total Bilirubin 0.6 mg/dL (0.2-1.0) Aspartate Amino Transf (AST/SGOT) 16 U/L (15-37) Alanine Aminotransferase (ALT/SGPT) 16 U/L (14-59) Alkaline Phosphatase 134 U/L (46-116) Total Protein 7.4 g/dL (6.4-8.2) Albumin 2.8 g/dL (3.4-5.0) Albumin/Globulin Ratio 0.6 (1.0-1.7) O2 Saturation 97 % (92-99) Arterial Blood pH 7.42 (7.35-7.45) Arterial Blood pCO2 at Patient Temp 40 mmHg (35-46) Arterial Blood pO2 at Patient Temp 93 mmHg (65-108) Arterial Blood HCO3 25 mmol/L (21-28) Arterial Blood Base Excess 1 mmol/L (-3-3) Oxyhemoglobin 96.3 % Methemoglobin 0.2 % (0.0-1.9) Carbon Monoxide, Quantitative 0.3 % (0.0-1.9) FiO2 28 Laboratory Tests Test 09/22/20 19:45 O2 Saturation 97 % (92-99) Arterial Blood pH 7.42 (7.35-7.45) Arterial Blood pCO2 at Patient Temp 40 mmHg (35-46) Arterial Blood pO2 at Patient Temp 93 mmHg (65-108) Arterial Blood HCO3 25 mmol/L (21-28) Arterial Blood Base Excess 1 mmol/L (-3-3) Oxyhemoglobin 96.3 % Methemoglobin 0.2 % (0.0-1.9) Carbon Monoxide, Quantitative 0.3 % (0.0-1.9) FiO2 28 Assessment/Plan Assessment/Plan Impression: Altered mental status, metabolic encephalopathy, related to urinary tract infection which has cleared. Peripheral neuropathy Recommendations: This patient, with a chief complaint of altered mental status, did not have any imaging of the brain done. However, she is now back to baseline so I see no need to obtain such a test now Treat medical diseases Neurology will follow at intervals. Thank you for letting me help with the patient's care. SHAWN TEJADA MD Sep 23, 2020 13:09
--- NOTE | 2020-09-23 15:09 | CONS ---
DATE OF CONSULTATION: 09/23/2020 REFERRING PHYSICIAN: Dr. Torres. REASON FOR CONSULTATION: UTI. HISTORY OF PRESENT ILLNESS: A 70-year-old female who presented to the ER with altered mental status. She was recently discharged from [facility] at which time she was treated with Klebsiella UTI with Augmentin. The patient was discharged to [facility]. Then, she went to her sister's home, at which time she was found to have altered mental status. She was afebrile. White count was normal. Creatinine of 1.5. UA showed pyuria. The patient underwent chest x-ray, which showed a patchy wedge-shaped opacities in the medial left upper lung and right mid lung, which could represent multifocal infection or inflammation. Edema can also give similar appearance. The patient's son who is COVID positive lives at her house. She has been staying away from her son. She has a history of kidney stones, urinary incontinence. She does not use any oxygen at home. She denies any fevers, chills, headaches, sore throat, nausea, vomiting, diarrhea, abdominal pain. She was started on ceftriaxone and vancomycin. ID consultation has been requested for further evaluation and treatment. PAST MEDICAL HISTORY: Asthma, anxiety, CHF, depression, GERD, hyperlipidemia, hypertension, hypothyroidism, recurrent UTI, chronic hepatitis C, neuropathy, foot wound, , hysterectomy, oophorectomy, tonsillectomy, carpal tunnel syndrome, weight loss surgery. ALLERGIES: AMOXICILLIN, CELEBREX, AUGMENTIN, CELECOXIB, POTASSIUM CLAVULANATE. The patient is tolerating cephalosporins well. FAMILY HISTORY: Diabetes. SOCIAL HISTORY: She does not smoke, drink or do illicit drugs. Currently living with her sister. Son has COVID. CURRENT MEDICATIONS: Refer to [facility]. REVIEW OF SYSTEMS: Negative except for above in HPI. PHYSICAL EXAMINATION: VITAL SIGNS: Temperature 98.1, pulse 78, respiratory rate 20, blood pressure 94/44, oxygen saturation 98% on 2 liters. GENERAL: Alert and oriented x 3 female, lying in bed comfortably, in no acute distress. HEENT: Normocephalic, atraumatic, anicteric. NECK: Supple. No JVD. LUNGS: Clear bilaterally. No wheezing. HEART: S1, S2. No gallops or murmurs. ABDOMEN: Soft, nontender, nondistended. EXTREMITIES: Chronic venous stasis changes present. Wound over the left lower extremity with mild redness. Wound pictures noted. DERMATOLOGIC: Warm, dry, no generalized rash except for above. CENTRAL NERVOUS SYSTEM: Alert, oriented x 3. Grossly nonfocal. PSYCHIATRIC: Cooperative, appropriate mood and affect. LABORATORY DATA: CBC: WBC 9.1, hemoglobin 10.3, hematocrit 31.7, platelets 189. Sodium 139, potassium 4.5, chloride 102, bicarbonate 31, BUN 30, creatinine 1.5, glucose 108, alkaline phosphatase 134. UA shows moderate leukocyte esterase, 20-40 wbc's. Micro pending at this time. IMAGING: Chest x-ray shows patchy wedge-shaped opacities in the medial left upper lung and right lung. Micro pending at this time. IMPRESSION: 1. Encephalopathy, resolved, likely metabolic. 2. Left lower extremity cellulitis from chronic underlying wound, 3. Urinary tract infection, history of recurrent urinary tract infection with urinary incontinence, recently treated with Augmentin for Klebsiella urinary tract infection. 4. History of kidney stone. 5. Possible bacterial pneumonia. 6. Recent COVID-19 exposure. 7. Anxiety and depression. 8. History of allergies to AMOXICILLIN. RECOMMENDATIONS: 1. Continue ceftriaxone. Discontinue IV vancomycin. 2. Start doxycycline. 3. Follow up labs and cultures. 4. Continue supportive care. 5. Maintain aspiration precautions. 6. Continue local wound care. 7. Discussed with nursing staff. Thank you for allowing me to participate in this patient's care. If you have any questions, do not hesitate to contact me. OTILIA EVANGELISTA MD DR: WALTER/radha JOB#: [id number] / [id number] AISLINN
[2020-09-23] MEDS: DOXYCYCLINE HYCLATE 100 MG TABLET PO SCH ×2 (16:05→22:54)
[2020-09-23 16:34] LABS: BASO % 1 % (0-3); EOS # 0.2 x10^3/uL (0.0-0.7); EOS % 4 % (0-3); HEMATOCRIT 28.3 % (36.0-47.0); HEMOGLOBIN 9.3 g/dL (12.0-15.5); LYMPH % 17 % (24-48); MEAN CORPUSCULAR HEMOGLOBIN 31 pg (25-35); MEAN CORPUSCULAR HGB CONC 33 g/dL (31-37); MEAN CORPUSCULAR VOLUME 95 fL (79-100); MONO # 0.4 x10^3/uL (0.0-1.1); MONO % 7 % (0-9); NEUT # 4.1 x10^3/uL (1.8-7.7); NEUT % 72 % (31-73); PLATELET COUNT 168 x10^3/uL (140-400); RED BLOOD COUNT 2.97 x10^6/uL (3.50-5.40); WHITE BLOOD COUNT 5.8 x10^3/uL (4.0-11.0)
[2020-09-23 16:57] LABS: ALBUMIN 2.1 g/dL (3.4-5.0); ALBUMIN/GLOBULIN RATIO 0.5 (1.0-1.7); CALCIUM 7.4 mg/dL (8.5-10.1); CREATININE 1.1 mg/dL (0.6-1.0); GFR 49.4; TOTAL BILIRUBIN 0.2 mg/dL (0.2-1.0); TOTAL PROTEIN 6.1 g/dL (6.4-8.2)
[2020-09-23] MEDS ORDERED: VANCOMYCIN 1.5 GM in IV NORMAL SALINE 500ML BAG 500 ML IV SCH (21:00)
[2020-09-23] MEDS: PRAMIPEXOLE 0.25 MG TABLET. PO SCH (22:54)
[2020-09-23] MEDS: LACTOBACILLUS RHAMNOSUS GG 1 CAPSULE. PO SCH (22:54)
[2020-09-24] MEDS: ALPRAZolam 0.5 MG TABLET PO PRN ×2 (01:30→15:29)
[2020-09-24 03:22] VITALS: BP 105/71
[2020-09-24 07:00] VITALS: BP 117/56
[2020-09-24] MEDS: LEVOTHYROXINE 175 MCG TABLET PO SCH (07:07)
[2020-09-24] MEDS: IV NORMAL SALINE 1000ML BAG 1,000 ML IV SCH ×2 (07:14→20:46)
[2020-09-24] MEDS: ALBUTEROL SULFATE 2.5 MG/3 ML NEBU. NEB SCH ×4 (08:04→20:00)
[2020-09-24] MEDS: BUDESONIDE 0.5 MG/2 ML NEBU. NEB SCH ×2 (08:04→20:00)
[2020-09-24] MEDS: FERROUS SULFATE 325 MG TABLET. PO SCH (08:39)
[2020-09-24] MEDS: DOXYCYCLINE HYCLATE 100 MG TABLET PO SCH ×2 (08:39→20:43)
[2020-09-24] MEDS: MAGNESIUM OXIDE 400 MG TABLET PO SCH ×2 (08:39→16:29)
[2020-09-24] MEDS: LACTOBACILLUS RHAMNOSUS GG 1 CAPSULE. PO SCH ×2 (08:39→20:43)
[2020-09-24] MEDS: GABAPENTIN 400 MG CAPSULE. PO SCH ×2 (08:39→20:44)
[2020-09-24] MEDS: DOCUSATE SODIUM 100 MG CAPSULE. PO SCH (08:39)
[2020-09-24] MEDS: CITALOPRAM 20 MG TABLET. PO SCH (08:39)
[2020-09-24] MEDS: ASPIRIN CHEWABLE 81 MG TABLET. PO SCH (08:39)
[2020-09-24] MEDS: FAMOTIDINE 20 MG TABLET. PO SCH (08:39)
[2020-09-24] MEDS: FUROSEMIDE 40 MG TABLET. PO SCH (08:40)
[2020-09-24] MEDS: LOSARTAN POTASSIUM 50 MG TABLET. PO SCH (08:40)
[2020-09-24] MEDS: DICLOFENAC SODIUM 1% TOPICAL GEL 100GM TUBE. TP SCH ×2 (08:41→20:44)
[2020-09-24] MEDS: METOPROLOL SUCC 24HR ER 100 MG TAB.ER.24H. PO SCH (08:41)
--- NOTE | 2020-09-24 09:14 | PDOC ---
PULMONARY PROGRESS NOTES DATE: 09/24/20 TIME: 09:14 Subjective Pt. remains on 2 liters N/C low grade fever overnight mild non-productive cough Vitals Vital Signs Date Time Temp Pulse Resp B/P (MAP) Pulse Ox O2 Delivery O2 Flow Rate FiO2 09/24/20 08:41 83 117/56 09/24/20 08:13 Nasal Cannula 2.0 09/24/20 08:00 98 09/24/20 03:22 98.4 18 98.4 ROS: No Nausea, No Chest Pain, No Abdominal Pain, No Increase Cough General: Alert, No acute distress Lungs: Clear, Wheezing Cardiovascular: S1 Abdomen: Soft, Non-tender, Other Extremities: No Edema, Other Labs Laboratory Tests Test 09/22/20 11:00 09/22/20 11:15 09/22/20 17:30 09/22/20 19:45 Urine Collection Type U cath Urine Color Tamica Urine Clarity Clear Urine pH 5.5 (<5.0-8.0) Urine Specific [place] 1.020 (1.000-1.030) Urine Protein Negative mg/dL (NEG-TRACE) Urine Glucose (UA) Negative mg/dL (NEG) Urine Ketones (Stick) Negative mg/dL (NEG) Urine Blood Trace (NEG) Urine Nitrite Positive (NEG) Urine Bilirubin Small (NEG) Urine Urobilinogen Dipstick 1.0 mg/dL (0.2 mg/dL) Urine Leukocyte Esterase Moderate (NEG) Urine RBC Rare /HPF (0-2) Urine WBC 20-40 /HPF (0-4) Urine Squamous Epithelial Cells Few /LPF Urine Bacteria Many /HPF (0-FEW) Urine Hyaline Casts Occasional /HPF Urine Mucus Slight /LPF White Blood Count 9.1 x10^3/uL (4.0-11.0) Red Blood Count 3.35 x10^6/uL (3.50-5.40) Hemoglobin 10.3 g/dL (12.0-15.5) Hematocrit 31.7 % (36.0-47.0) Mean Corpuscular Volume 95 fL (79-100) Mean Corpuscular Hemoglobin 31 pg (25-35) Mean Corpuscular Hemoglobin Concent 32 g/dL (31-37) Red Cell Distribution Width 15.0 % (11.5-14.5) Platelet Count 189 x10^3/uL (140-400) Neutrophils (%) (Auto) 77 % (31-73) Lymphocytes (%) (Auto) 13 % (24-48) Monocytes (%) (Auto) 7 % (0-9) Eosinophils (%) (Auto) 3 % (0-3) Basophils (%) (Auto) 1 % (0-3) Neutrophils # (Auto) 7.0 x10^3/uL (1.8-7.7) Lymphocytes # (Auto) 1.1 x10^3/uL (1.0-4.8) Monocytes # (Auto) 0.6 x10^3/uL (0.0-1.1) Eosinophils # (Auto) 0.3 x10^3/uL (0.0-0.7) Basophils # (Auto) 0.0 x10^3/uL (0.0-0.2) Sodium Level 139 mmol/L (136-145) Potassium Level 4.5 mmol/L (3.5-5.1) Chloride Level 102 mmol/L (98-107) Carbon Dioxide Level 31 mmol/L (21-32) Anion Gap 6 (6-14) Blood Urea Nitrogen 30 mg/dL (7-20) Creatinine 1.5 mg/dL (0.6-1.0) Estimated GFR (Cockcroft-Gault) 34.5 BUN/Creatinine Ratio 20 (6-20) Glucose Level 108 mg/dL (70-99) Calcium Level 8.7 mg/dL (8.5-10.1) Total Bilirubin 0.6 mg/dL (0.2-1.0) Aspartate Amino Transf (AST/SGOT) 16 U/L (15-37) Alanine Aminotransferase (ALT/SGPT) 16 U/L (14-59) Alkaline Phosphatase 134 U/L (46-116) Total Protein 7.4 g/dL (6.4-8.2) Albumin 2.8 g/dL (3.4-5.0) Albumin/Globulin Ratio 0.6 (1.0-1.7) Coronavirus (PCR) Not detected (Not Detected) O2 Saturation 97 % (92-99) Arterial Blood pH 7.42 (7.35-7.45) Arterial Blood pCO2 at Patient Temp 40 mmHg (35-46) Arterial Blood pO2 at Patient Temp 93 mmHg (65-108) Arterial Blood HCO3 25 mmol/L (21-28) Arterial Blood Base Excess 1 mmol/L (-3-3) Oxyhemoglobin 96.3 % Methemoglobin 0.2 % (0.0-1.9) Carbon Monoxide, Quantitative 0.3 % (0.0-1.9) FiO2 28 Test 09/23/20 16:17 White Blood Count 5.8 x10^3/uL (4.0-11.0) Red Blood Count 2.97 x10^6/uL (3.50-5.40) Hemoglobin 9.3 g/dL (12.0-15.5) Hematocrit 28.3 % (36.0-47.0) Mean Corpuscular Volume 95 fL (79-100) Mean Corpuscular Hemoglobin 31 pg (25-35) Mean Corpuscular Hemoglobin Concent 33 g/dL (31-37) Red Cell Distribution Width 15.0 % (11.5-14.5) Platelet Count 168 x10^3/uL (140-400) Neutrophils (%) (Auto) 72 % (31-73) Lymphocytes (%) (Auto) 17 % (24-48) Monocytes (%) (Auto) 7 % (0-9) Eosinophils (%) (Auto) 4 % (0-3) Basophils (%) (Auto) 1 % (0-3) Neutrophils # (Auto) 4.1 x10^3/uL (1.8-7.7) Lymphocytes # (Auto) 1.0 x10^3/uL (1.0-4.8) Monocytes # (Auto) 0.4 x10^3/uL (0.0-1.1) Eosinophils # (Auto) 0.2 x10^3/uL (0.0-0.7) Basophils # (Auto) 0.0 x10^3/uL (0.0-0.2) Sodium Level 140 mmol/L (136-145) Potassium Level 4.0 mmol/L (3.5-5.1) Chloride Level 107 mmol/L (98-107) Carbon Dioxide Level 26 mmol/L (21-32) Anion Gap 7 (6-14) Blood Urea Nitrogen 24 mg/dL (7-20) Creatinine 1.1 mg/dL (0.6-1.0) Estimated GFR (Cockcroft-Gault) 49.4 BUN/Creatinine Ratio 22 (6-20) Glucose Level 107 mg/dL (70-99) Calcium Level 7.4 mg/dL (8.5-10.1) Total Bilirubin 0.2 mg/dL (0.2-1.0) Aspartate Amino Transf (AST/SGOT) 12 U/L (15-37) Alanine Aminotransferase (ALT/SGPT) 10 U/L (14-59) Alkaline Phosphatase 107 U/L (46-116) Total Protein 6.1 g/dL (6.4-8.2) Albumin 2.1 g/dL (3.4-5.0) Albumin/Globulin Ratio 0.5 (1.0-1.7) Laboratory Tests Test 09/23/20 16:17 White Blood Count 5.8 x10^3/uL (4.0-11.0) Red Blood Count 2.97 x10^6/uL (3.50-5.40) Hemoglobin 9.3 g/dL (12.0-15.5) Hematocrit 28.3 % (36.0-47.0) Mean Corpuscular Volume 95 fL (79-100) Mean Corpuscular Hemoglobin 31 pg (25-35) Mean Corpuscular Hemoglobin Concent 33 g/dL (31-37) Red Cell Distribution Width 15.0 % (11.5-14.5) Platelet Count 168 x10^3/uL (140-400) Neutrophils (%) (Auto) 72 % (31-73) Lymphocytes (%) (Auto) 17 % (24-48) Monocytes (%) (Auto) 7 % (0-9) Eosinophils (%) (Auto) 4 % (0-3) Basophils (%) (Auto) 1 % (0-3) Neutrophils # (Auto) 4.1 x10^3/uL (1.8-7.7) Lymphocytes # (Auto) 1.0 x10^3/uL (1.0-4.8) Monocytes # (Auto) 0.4 x10^3/uL (0.0-1.1) Eosinophils # (Auto) 0.2 x10^3/uL (0.0-0.7) Basophils # (Auto) 0.0 x10^3/uL (0.0-0.2) Sodium Level 140 mmol/L (136-145) Potassium Level 4.0 mmol/L (3.5-5.1) Chloride Level 107 mmol/L (98-107) Carbon Dioxide Level 26 mmol/L (21-32) Anion Gap 7 (6-14) Blood Urea Nitrogen 24 mg/dL (7-20) Creatinine 1.1 mg/dL (0.6-1.0) Estimated GFR (Cockcroft-Gault) 49.4 BUN/Creatinine Ratio 22 (6-20) Glucose Level 107 mg/dL (70-99) Calcium Level 7.4 mg/dL (8.5-10.1) Total Bilirubin 0.2 mg/dL (0.2-1.0) Aspartate Amino Transf (AST/SGOT) 12 U/L (15-37) Alanine Aminotransferase (ALT/SGPT) 10 U/L (14-59) Alkaline Phosphatase 107 U/L (46-116) Total Protein 6.1 g/dL (6.4-8.2) Albumin 2.1 g/dL (3.4-5.0) Albumin/Globulin Ratio 0.5 (1.0-1.7) Medications Active Scripts Medications Dose Route/Sig Max Daily Dose Days Date Category Mirapex (Pramipexole Di-Hcl) 1 Mg Tablet 1 Mg PO HS 09/23/20 Reported Gabapentin 800 Mg Tablet 800 Mg PO TID 09/23/20 Reported Ferrous Sulfate 325 Mg Tablet 1 Tab PO DAILY 09/23/20 Reported Furosemide 40 Mg Tablet 1 Tab PO DAILY 09/23/20 Reported Synthroid (Levothyroxine Sodium) 200 Mcg Tablet 1 Tab PO DAILY 09/23/20 Reported Synthroid (Levothyroxine Sodium) 150 Mcg Tablet 1 Tab PO DAILY 09/23/20 Reported Hydrocodone-Apap 7.5-325 (Hydrocodone Bit/Acetaminophen) 1 Tab Tablet 1 Tab PO PRN Q6HRS PRN 09/23/20 Reported Tylenol (Acetaminophen) 325 Mg Tablet 650 Mg PO PRN Q4HRS PRN 30 08/31/20 Rx Ammonium Lactate 226 Gm Lotion 1 Jhoana TP PRN BID PRN 30 08/31/20 Rx Magnesium Oxide 400 Mg Tablet 400 Mg PO BIDAC 30 08/31/20 Rx Alprazolam 0.5 Mg Tablet 0.5 Mg PO PRN TID PRN 6 08/31/20 Rx Losartan Potassium 50 Mg Tablet 50 Mg PO DAILY 08/10/19 Reported Voltaren (Diclofenac Sodium) 100 Gm Gel..gram. 1 Jhoana TP BID 30 08/10/19 Rx Metamucil (Psyllium Husk) 0.52 Gm Capsule 1 Cap PO QODAY 30 08/08/19 Reported Colace (Docusate Sodium) 100 Mg Capsule 1 Cap PO DAILY 15 08/08/19 Reported Aspirin 81 Mg Tab.chew 81 Mg PO DAILY 08/08/19 Reported Famotidine 20 Mg Tablet 20 Mg PO BID 08/08/19 Reported Vitamin D2 (Ergocalciferol (Vitamin D2)) 50,000 Unit Capsule 50,000 Unit PO WEEKLY 11/21/15 Reported Symbicort 160-4.5 Mcg Inhaler (Budesonide/Formoterol Fumarate) 10.2 Gm Hfa.aer.ad 2 Puff IH BID 10/03/13 Reported Citalopram Hbr (Citalopram Hydrobromide) 40 Mg Tablet 40 Mg PO DAILY 10/03/13 Reported Metoprolol Succinate ( Xl ) (Metoprolol Succinate) 100 Mg Tab.er.24h 100 Mg PO DAILY 10/03/13 Reported Comments CXR IMPRESSION: 1. Patchy wedge-shaped opacities in the medial left upper lung and right midlung, may represent multifocal infection/inflammation. Atypical edema may also result in this appearance. Impression . IMPRESSION: 1. Abnormal x-ray compatible with suspect atelectasis, maybe mild fluid congestion. 2. Progressive dyspnea, multifactorial, mostly related to weakness, obesity. 3. Possible bacterial pneumonia. 4. Recent COVID-19 exposure, COVID negative 5. Metabolic and toxic encephalopathy. 6. Recurrent urinary tract infection. Plan . PLAN: Continue supplemental oxygen as needed to keep sats above 92% Follow ID recs for ABX: on Doxy and Rocephin Follow cultures Covid-19 negative Follow neurology recs Follow wound care recs PT/OT DVT/GI PPX D/W MERISSA SAMPSON MD Sep 24, 2020 09:14
--- NOTE | 2020-09-24 10:44 | PDOC ---
PROGRESS NOTES Date of Service: DATE: 09/24/20 TIME: 10:43 Chief Complaint Chief Complaint ASSESSMENT AND PLAN: Urinary tract infection, acute metabolic encephalopathy,, improved Altered mental status, metabolic encephalopathy, related to urinary tract infection which has improved neg COVID-19, Patchy wedge-shaped opacities in the medial left upper lung and right midlung, may represent multifocal infection/inflammation. Atypical edema may also result in this appearance. azotemia, acute renal injury UTI History of kidney stone. Possible bacterial pneumonia. Recent home contacrt COVID-19 exposure. admitted. plan IV fluids, IV antibiotics, ROCEPHIN 1 GM Q 24 HRS home medications, DVT prophylaxis. Consult Infectious Disease. c/o right hip pain, worse x 1 week , no trauma noted, will x ray D/W RN History of Present Illness History of Present Illness HISTORY OF PRESENT ILLNESS: The patient is a pleasant 70-year-old female who presents to the ER with mental status change. While in the ER, she was noted to have a UTI. I discussed the case with ER physician. We are going to admit the patient, give her IV fluids, IV antibiotics and rule out COVID-19. PAST MEDICAL HISTORY: Asthma, anxiety, CHF, depression, GERD, hyperlipidemia, hypertension, hypothyroidism, MRSA, pneumonia, UTI, hep C, neuropathy, foot wound, , hysterectomy, oophorectomy, tonsillectomy, carpal tunnel surgery, weight loss surgery.Anxiety, depression, gastroesophageal reflux, hyperlipidemia, hypertension, hypothyroidism, obesity, previous MRSA infection, previous pneumonia. PAST SURGICAL HISTORY: Hysterectomy, oophorectomy and tonsillectomy. She has had previous carpal tunnel release surgery, bariatric surgery. SOCIAL HISTORY: She has never smoked. ALLERGIES: AMOXICILLIN, CELEBREX, AUGMENTIN. FAMILY HISTORY: Diabetes. SOCIAL HISTORY: She does not drink, smoke or take drugs. MEDICATIONS: Reviewed, please refer to the MRAD. REVIEW OF SYSTEMS: Unable to obtain. She is obtunded. Vitals Vitals Vital Signs Date Time Temp Pulse Resp B/P (MAP) Pulse Ox O2 Delivery O2 Flow Rate FiO2 09/24/20 08:41 83 117/56 09/24/20 08:13 Nasal Cannula 2.0 09/24/20 08:00 98 09/24/20 07:00 99.6 18 99.6 Physical Exam Physical Exam VITALS: Within normal limits and are stable. GENERAL: She is alert HEENT: Normal cephalic atraumatic, external auditory canals are patent. EYES: Extraocular muscles are intact, pupils are equally round and reactive to light and accommodation. MUSCULOSKELETAL: Well developed, well nourished, good range of motion. ENDOCRINE: No thyromegaly was palpated. LYMPHATICS: No cervical chain or axillary nodes were noted. HEMATOPOIETIC: No bruising. NECK: Supple, no JVD, no thyromegaly was noted. LUNGS: Clear to auscultation in all lung davidson without rhonchi or wheezing. HEART: RRR, S1, S2 present. Peripheral pulses intact, no obvious murmurs were noted. ABDOMEN: Soft, nontender. Positive bowel sounds no organomegaly, normal bowel sounds. EXTREMITIES: Without any cyanosis, clubbing, or edema. Pedal pulses intact, Homans sign is negative. NEUROLOGIC: She is obtunded. PSYCHIATRIC: She is obtunded. SKIN: No ulcerations or rashes, good skin turgor, no jaundice. VASCULAR: Good capillary refill, neurovascular bundle appears to be intact. General: Alert, Oriented X3, Cooperative Heart: Regular rate Lungs: Clear, Wheezing Labs LABS Laboratory Tests Test 09/23/20 16:17 White Blood Count 5.8 x10^3/uL (4.0-11.0) Red Blood Count 2.97 x10^6/uL (3.50-5.40) Hemoglobin 9.3 g/dL (12.0-15.5) Hematocrit 28.3 % (36.0-47.0) Mean Corpuscular Volume 95 fL (79-100) Mean Corpuscular Hemoglobin 31 pg (25-35) Mean Corpuscular Hemoglobin Concent 33 g/dL (31-37) Red Cell Distribution Width 15.0 % (11.5-14.5) Platelet Count 168 x10^3/uL (140-400) Neutrophils (%) (Auto) 72 % (31-73) Lymphocytes (%) (Auto) 17 % (24-48) Monocytes (%) (Auto) 7 % (0-9) Eosinophils (%) (Auto) 4 % (0-3) Basophils (%) (Auto) 1 % (0-3) Neutrophils # (Auto) 4.1 x10^3/uL (1.8-7.7) Lymphocytes # (Auto) 1.0 x10^3/uL (1.0-4.8) Monocytes # (Auto) 0.4 x10^3/uL (0.0-1.1) Eosinophils # (Auto) 0.2 x10^3/uL (0.0-0.7) Basophils # (Auto) 0.0 x10^3/uL (0.0-0.2) Sodium Level 140 mmol/L (136-145) Potassium Level 4.0 mmol/L (3.5-5.1) Chloride Level 107 mmol/L (98-107) Carbon Dioxide Level 26 mmol/L (21-32) Anion Gap 7 (6-14) Blood Urea Nitrogen 24 mg/dL (7-20) Creatinine 1.1 mg/dL (0.6-1.0) Estimated GFR (Cockcroft-Gault) 49.4 BUN/Creatinine Ratio 22 (6-20) Glucose Level 107 mg/dL (70-99) Calcium Level 7.4 mg/dL (8.5-10.1) Total Bilirubin 0.2 mg/dL (0.2-1.0) Aspartate Amino Transf (AST/SGOT) 12 U/L (15-37) Alanine Aminotransferase (ALT/SGPT) 10 U/L (14-59) Alkaline Phosphatase 107 U/L (46-116) Total Protein 6.1 g/dL (6.4-8.2) Albumin 2.1 g/dL (3.4-5.0) Albumin/Globulin Ratio 0.5 (1.0-1.7) Assessment and Plan Assessmemt and Plan Problems Medical Problems: (1) Altered mental status Status: Acute Comment Review of Relevant I have reviewed the following items mikael (where applicable) has been applied. Labs Laboratory Tests Test 09/22/20 11:00 09/22/20 11:15 09/22/20 17:30 09/22/20 19:45 Urine Collection Type U cath Urine Color [place] Urine Clarity Clear Urine pH 5.5 (<5.0-8.0) Urine Specific [place] 1.020 (1.000-1.030) Urine Protein Negative mg/dL (NEG-TRACE) Urine Glucose (UA) Negative mg/dL (NEG) Urine Ketones (Stick) Negative mg/dL (NEG) Urine Blood Trace (NEG) Urine Nitrite Positive (NEG) Urine Bilirubin Small (NEG) Urine Urobilinogen Dipstick 1.0 mg/dL (0.2 mg/dL) Urine Leukocyte Esterase Moderate (NEG) Urine RBC Rare /HPF (0-2) Urine WBC 20-40 /HPF (0-4) Urine Squamous Epithelial Cells Few /LPF Urine Bacteria Many /HPF (0-FEW) Urine Hyaline Casts Occasional /HPF Urine Mucus Slight /LPF White Blood Count 9.1 x10^3/uL (4.0-11.0) Red Blood Count 3.35 x10^6/uL (3.50-5.40) Hemoglobin 10.3 g/dL (12.0-15.5) Hematocrit 31.7 % (36.0-47.0) Mean Corpuscular Volume 95 fL (79-100) Mean Corpuscular Hemoglobin 31 pg (25-35) Mean Corpuscular Hemoglobin Concent 32 g/dL (31-37) Red Cell Distribution Width 15.0 % (11.5-14.5) Platelet Count 189 x10^3/uL (140-400) Neutrophils (%) (Auto) 77 % (31-73) Lymphocytes (%) (Auto) 13 % (24-48) Monocytes (%) (Auto) 7 % (0-9) Eosinophils (%) (Auto) 3 % (0-3) Basophils (%) (Auto) 1 % (0-3) Neutrophils # (Auto) 7.0 x10^3/uL (1.8-7.7) Lymphocytes # (Auto) 1.1 x10^3/uL (1.0-4.8) Monocytes # (Auto) 0.6 x10^3/uL (0.0-1.1) Eosinophils # (Auto) 0.3 x10^3/uL (0.0-0.7) Basophils # (Auto) 0.0 x10^3/uL (0.0-0.2) Sodium Level 139 mmol/L (136-145) Potassium Level 4.5 mmol/L (3.5-5.1) Chloride Level 102 mmol/L (98-107) Carbon Dioxide Level 31 mmol/L (21-32) Anion Gap 6 (6-14) Blood Urea Nitrogen 30 mg/dL (7-20) Creatinine 1.5 mg/dL (0.6-1.0) Estimated GFR (Cockcroft-Gault) 34.5 BUN/Creatinine Ratio 20 (6-20) Glucose Level 108 mg/dL (70-99) Calcium Level 8.7 mg/dL (8.5-10.1) Total Bilirubin 0.6 mg/dL (0.2-1.0) Aspartate Amino Transf (AST/SGOT) 16 U/L (15-37) Alanine Aminotransferase (ALT/SGPT) 16 U/L (14-59) Alkaline Phosphatase 134 U/L (46-116) Total Protein 7.4 g/dL (6.4-8.2) Albumin 2.8 g/dL (3.4-5.0) Albumin/Globulin Ratio 0.6 (1.0-1.7) Coronavirus (PCR) Not detected (Not Detected) O2 Saturation 97 % (92-99) Arterial Blood pH 7.42 (7.35-7.45) Arterial Blood pCO2 at Patient Temp 40 mmHg (35-46) Arterial Blood pO2 at Patient Temp 93 mmHg (65-108) Arterial Blood HCO3 25 mmol/L (21-28) Arterial Blood Base Excess 1 mmol/L (-3-3) Oxyhemoglobin 96.3 % Methemoglobin 0.2 % (0.0-1.9) Carbon Monoxide, Quantitative 0.3 % (0.0-1.9) FiO2 28 Test 09/23/20 16:17 White Blood Count 5.8 x10^3/uL (4.0-11.0) Red Blood Count 2.97 x10^6/uL (3.50-5.40) Hemoglobin 9.3 g/dL (12.0-15.5) Hematocrit 28.3 % (36.0-47.0) Mean Corpuscular Volume 95 fL (79-100) Mean Corpuscular Hemoglobin 31 pg (25-35) Mean Corpuscular Hemoglobin Concent 33 g/dL (31-37) Red Cell Distribution Width 15.0 % (11.5-14.5) Platelet Count 168 x10^3/uL (140-400) Neutrophils (%) (Auto) 72 % (31-73) Lymphocytes (%) (Auto) 17 % (24-48) Monocytes (%) (Auto) 7 % (0-9) Eosinophils (%) (Auto) 4 % (0-3) Basophils (%) (Auto) 1 % (0-3) Neutrophils # (Auto) 4.1 x10^3/uL (1.8-7.7) Lymphocytes # (Auto) 1.0 x10^3/uL (1.0-4.8) Monocytes # (Auto) 0.4 x10^3/uL (0.0-1.1) Eosinophils # (Auto) 0.2 x10^3/uL (0.0-0.7) Basophils # (Auto) 0.0 x10^3/uL (0.0-0.2) Sodium Level 140 mmol/L (136-145) Potassium Level 4.0 mmol/L (3.5-5.1) Chloride Level 107 mmol/L (98-107) Carbon Dioxide Level 26 mmol/L (21-32) Anion Gap 7 (6-14) Blood Urea Nitrogen 24 mg/dL (7-20) Creatinine 1.1 mg/dL (0.6-1.0) Estimated GFR (Cockcroft-Gault) 49.4 BUN/Creatinine Ratio 22 (6-20) Glucose Level 107 mg/dL (70-99) Calcium Level 7.4 mg/dL (8.5-10.1) Total Bilirubin 0.2 mg/dL (0.2-1.0) Aspartate Amino Transf (AST/SGOT) 12 U/L (15-37) Alanine Aminotransferase (ALT/SGPT) 10 U/L (14-59) Alkaline Phosphatase 107 U/L (46-116) Total Protein 6.1 g/dL (6.4-8.2) Albumin 2.1 g/dL (3.4-5.0) Albumin/Globulin Ratio 0.5 (1.0-1.7) Laboratory Tests Test 09/23/20 16:17 White Blood Count 5.8 x10^3/uL (4.0-11.0) Red Blood Count 2.97 x10^6/uL (3.50-5.40) Hemoglobin 9.3 g/dL (12.0-15.5) Hematocrit 28.3 % (36.0-47.0) Mean Corpuscular Volume 95 fL (79-100) Mean Corpuscular Hemoglobin 31 pg (25-35) Mean Corpuscular Hemoglobin Concent 33 g/dL (31-37) Red Cell Distribution Width 15.0 % (11.5-14.5) Platelet Count 168 x10^3/uL (140-400) Neutrophils (%) (Auto) 72 % (31-73) Lymphocytes (%) (Auto) 17 % (24-48) Monocytes (%) (Auto) 7 % (0-9) Eosinophils (%) (Auto) 4 % (0-3) Basophils (%) (Auto) 1 % (0-3) Neutrophils # (Auto) 4.1 x10^3/uL (1.8-7.7) Lymphocytes # (Auto) 1.0 x10^3/uL (1.0-4.8) Monocytes # (Auto) 0.4 x10^3/uL (0.0-1.1) Eosinophils # (Auto) 0.2 x10^3/uL (0.0-0.7) Basophils # (Auto) 0.0 x10^3/uL (0.0-0.2) Sodium Level 140 mmol/L (136-145) Potassium Level 4.0 mmol/L (3.5-5.1) Chloride Level 107 mmol/L (98-107) Carbon Dioxide Level 26 mmol/L (21-32) Anion Gap 7 (6-14) Blood Urea Nitrogen 24 mg/dL (7-20) Creatinine 1.1 mg/dL (0.6-1.0) Estimated GFR (Cockcroft-Gault) 49.4 BUN/Creatinine Ratio 22 (6-20) Glucose Level 107 mg/dL (70-99) Calcium Level 7.4 mg/dL (8.5-10.1) Total Bilirubin 0.2 mg/dL (0.2-1.0) Aspartate Amino Transf (AST/SGOT) 12 U/L (15-37) Alanine Aminotransferase (ALT/SGPT) 10 U/L (14-59) Alkaline Phosphatase 107 U/L (46-116) Total Protein 6.1 g/dL (6.4-8.2) Albumin 2.1 g/dL (3.4-5.0) Albumin/Globulin Ratio 0.5 (1.0-1.7) Medications Current Medications Ceftriaxone Sodium (Rocephin) 1 gm 1X ONCE IVP Last administered on 09/22/20at 12:49; Start 09/22/20 at 12:30; Stop 09/22/20 at 12:31; Status DC Sodium Chloride 1,000 ml @ 75 mls/hr [id number] IV Last administered on 09/23/20at 14:36; Start 09/22/20 at 16:30 Vancomycin HCl 1.25 gm/Sodium Chloride 250 ml @ 166.667 mls/hr 1X ONCE IV ; Start 09/22/20 at 20:00; Stop 09/22/20 at 21:29; Status UNV Vancomycin HCl (Vanco Per Pharmacy) 1 each PRN DAILY PRN MC SEE COMMENTS Last administered on 09/23/20at 02:05; Start 09/22/20 at 20:15; Stop 09/23/20 at 14:12; Status DC Vancomycin HCl 2 gm/Sodium Chloride 500 ml @ 250 mls/hr 1X ONCE IV Last a dministered on 09/22/20at 21:20; Start 09/22/20 at 21:00; Stop 09/22/20 at 22:59; Status DC Vancomycin HCl 1 gm/Sodium Chloride 250 ml @ 250 mls/hr 1X ONCE IV ; Start 09/22/20 at 21:15; Stop 09/22/20 at 22:14; Status UNV Vancomycin HCl 1.5 gm/Sodium Chloride 500 ml @ 250 mls/hr Q24H IV ; Start 09/23/20 at 21:00; Stop 09/23/20 at 14:12; Status DC Vancomycin HCl (Vancomycin Trough Level) 1 each 1X ONCE MC ; Start 09/24/20 at 20:30; Stop 09/23/20 at 14:14; Status DC Acetaminophen (Tylenol) 650 mg PRN Q4HRS PRN PO TEMP OVER 100.4F; Start 09/23/20 at 02:00 Alprazolam (Xanax) 0.5 mg PRN TID PRN PO ANXIETY / AGITATION Last administered on 09/24/20at 01:30; Start 09/23/20 at 02:00 Lactic Acid (Lac-Hydrin) 1 jhoana PRN BID PRN TP DRY SKIN / SCALING Last administe red on 09/24/20at 01:30; Start 09/23/20 at 02:00 Aspirin (Aspirin Chewable) 81 mg DAILY PO Last administered on 09/24/20 08:39; Start 09/23/20 at 09:00 Diclofenac Sodium (Voltaren) 1 jhoana BID TP Last administered on 09/24/20at 08:41; Start 09/23/20 at 09:00 Docusate Sodium (Colace) 100 mg DAILY PO Last administered on 09/23/20at 08:40; Start 09/23/20 at 09:00 Ergocalciferol (Vitamin D2) 50,000 unit WEEKLY PO ; Start 09/25/20 at 09:00 Famotidine (Pepcid) 20 mg DAILY PO Last administered on 09/24/20at 08:39; Start 09/23/20 at 09:00 Ferrous Sulfate (Feosol) 325 mg DAILY PO Last administered on 09/24/20at 08:39; Start 09/23/20 at 09:00 Furosemide (Lasix) 40 mg DAILY PO Last administered on 09/24/20at 08:40; Start 09/23/20 at 09:00 Acetaminophen/ Hydrocodone Bitart (Lortab 7.5/325) 1 tab PRN Q6HRS PRN PO MODERATE PAIN 4-6 Last administered on 09/23/20at 23:03; Start 09/23/20 at 02:00 Levothyroxine Sodium (Synthroid) 300 mcg DAILY06 PO ; Start 09/23/20 at 06:00; Status Cancel Losartan Potassium (Cozaar) 50 mg DAILY PO Last administered on 09/24/20at 08:40; Start 09/23/20 at 09:00 Magnesium Oxide (Magnesium Oxide) 400 mg BIDAC PO Last administered on 09/24/20at 08:39; Start 09/23/20 at 07:30 Metoprolol Succinate (Toprol Xl) 100 mg DAILY PO Last administered on 09/24/20 08:41; Start 09/23/20 at 09:00 Budesonide (Pulmicort) 0.5 mg RTBID NEB Last administered on 09/24/20at 08:04; Start 09/23/20 at 08:00 Citalopram Hydrobromide (CeleXA) 40 mg DAILY PO Last administered on 09/24/20at 08:39; Start 09/23/20 at 09:00 Gabapentin (Neurontin) 800 mg BID PO Last administered on 09/24/20at 08:39; Start 09/23/20 at 09:00 Non-Formulary Medication (Levothyroxine Sodium (Synthroid)) 1 tab DAILY PO ; Start 09/23/20 at 09:00; Status UNV Pramipexole Dihydrochloride (miraPEX) 1 mg HS PO Last administered on 09/23/20at 22:54; Start 09/23/20 at 21:00 Psyllium Hydrophilic Mucilloid (Metamucil Fiber Packet) 1 pkt QODAY PO Last administered on 09/23/20at 08:39; Start 09/23/20 at 09:00 Albuterol Sulfate (Ventolin Neb Soln) 2.5 mg RTQID NEB Last administered on 09/24/20at 08:04; Start 09/23/20 at 08:00 Levothyroxine Sodium (Synthroid) 350 mcg DAILY06 PO Last administered on 09/24/20at 07:07; Start 09/23/20 at 06:00 Ceftriaxone Sodium (Rocephin) 1 gm Q24H IVP Last administered on 09/23/20at 12:44; Start 09/23/20 at 13:00 Enoxaparin Sodium (Lovenox 60mg Syringe) 60 mg Q12HR SQ Last administered on 09/24/20at 08:41; Start 09/23/20 at 21:00 Lactobacillus Rhamnosus (Culturelle) 1 cap BID PO Last administered on 09/24/20at 08:39; Start 09/23/20 at 21:00 Doxycycline Hyclate (Vibra-Tab) 100 mg BID PO Last administered on 09/24/20 08:39; Start 09/23/20 at 15:00 Active Scripts Active Tylenol (Acetaminophen) 325 Mg Tablet 650 Mg PO PRN Q4HRS PRN 30 Days Ammonium Lactate 226 Gm Lotion 1 Jhoana TP PRN BID PRN 30 Days Magnesium Oxide 400 Mg Tablet 400 Mg PO BIDAC 30 Days Alprazolam 0.5 Mg Tablet 0.5 Mg PO PRN TID PRN 6 Days Voltaren (Diclofenac Sodium) 100 Gm Gel..gram. 1 Jhoana TP BID 30 Days Reported Mirapex (Pramipexole Di-Hcl) 1 Mg Tablet 1 Mg PO HS Gabapentin 800 Mg Tablet 800 Mg PO TID Ferrous Sulfate 325 Mg Tablet 1 Tab PO DAILY Furosemide 40 Mg Tablet 1 Tab PO DAILY Synthroid (Levothyroxine Sodium) 200 Mcg Tablet 1 Tab PO DAILY Synthroid (Levothyroxine Sodium) 150 Mcg Tablet 1 Tab PO DAILY Hydrocodone-Apap 7.5-325 (Hydrocodone Bit/Acetaminophen) 1 Tab Tablet 1 Tab PO PRN Q6HRS PRN Losartan Potassium 50 Mg Tablet 50 Mg PO DAILY Metamucil (Psyllium Husk) 0.52 Gm Capsule 1 Cap PO QODAY 30 Days Colace (Docusate Sodium) 100 Mg Capsule 1 Cap PO DAILY 15 Days Aspirin 81 Mg Tab.chew 81 Mg PO DAILY Famotidine 20 Mg Tablet 20 Mg PO BID Vitamin D2 (Ergocalciferol (Vitamin D2)) 50,000 Unit Capsule 50,000 Unit PO WEEKLY Symbicort 160-4.5 Mcg Inhaler (Budesonide/Formoterol Fumarate) 10.2 Gm Hfa.aer.ad 2 Puff IH BID Citalopram Hbr (Citalopram Hydrobromide) 40 Mg Tablet 40 Mg PO DAILY Metoprolol Succinate ( Xl ) (Metoprolol Succinate) 100 Mg Tab.er.24h 100 Mg PO DAILY Vitals/I & O Vital Sign - Last 24 Hours 09/23/20 09/23/20 09/23/20 09/23/20 11:00 11:40 12:44 15:00 Temp 98.1 99.2 98.1 99.2 Pulse 78 79 Resp 22 20 20 22 B/P (MAP) 98/44 (62) 128/53 (78) Pulse Ox 95 98 98 95 O2 Delivery Room Air Nasal Cannula Nasal Cannula Room Air O2 Flow Rate 2.0 2.0 09/23/20 09/23/20 09/23/20 09/23/20 19:00 19:49 21:04 22:58 Temp 98.6 98.2 98.6 98.2 Pulse 76 76 Resp 30 24 B/P (MAP) 108/50 (69) 133/66 (88) Pulse Ox 100 100 100 O2 Delivery Room Air Nasal Cannula Nasal Cannula Room Air O2 Flow Rate 2.0 2.0 09/23/20 09/24/20 09/24/20 09/24/20 23:03 00:10 03:22 07:00 Temp 98.4 99.6 98.4 99.6 Pulse 79 90 Resp 20 22 18 18 B/P (MAP) 105/71 (82) 117/56 (76) Pulse Ox 100 100 98 96 O2 Delivery Nasal Cannula Nasal Cannula Room Air Nasal Cannula O2 Flow Rate 2.0 2.0 2.0 09/24/20 09/24/20 09/24/20 09/24/20 08:00 08:13 08:40 08:41 Pulse 85 83 B/P (MAP) 117/56 117/56 Pulse Ox 98 O2 Delivery Nasal Cannula Nasal Cannula O2 Flow Rate 2.0 2.0 Intake and Output 09/23/20 09/23/20 09/24/20 15:00 23:00 07:00 Intake Total 1460 ml 200 ml Output Total 1251 ml 300 ml Balance 209 ml -100 ml Justicifation of Admission Dx: Justifications for Admission: Justification of Admission Dx: N/A LINDSEY BRAR MD Sep 24, 2020 10:43
[2020-09-24 11:00] VITALS: BP 110/60
--- NOTE | 2020-09-24 12:09 | PDOC ---
Infectious Disease Note Subjective: Subjective Pt feels better no complaints Vital Signs: Vital Signs Vital Signs Date Time Temp Pulse Resp B/P (MAP) Pulse Ox O2 Delivery O2 Flow Rate FiO2 09/24/20 08:41 83 117/56 09/24/20 08:13 Nasal Cannula 2.0 09/24/20 08:00 98 09/24/20 07:00 99.6 18 99.6 Physical Exam: PHYSICAL EXAM GENERAL: Alert and oriented x 3 female, lying in bed comfortably, in no acute distress. HEENT: Normocephalic, atraumatic, anicteric. NECK: Supple. No JVD. LUNGS: Clear bilaterally. No wheezing. HEART: S1, S2. No gallops or murmurs. ABDOMEN: Soft, nontender, nondistended. EXTREMITIES: Chronic venous stasis changes present. Wound over the left lower extremity with mild redness. Wound pictures noted. DERMATOLOGIC: Warm, dry, no generalized rash except for above. CENTRAL NERVOUS SYSTEM: Alert, oriented x 3. Grossly nonfocal. PSYCHIATRIC: Cooperative, appropriate mood and affect. Medications: Inpatient Meds: Current Medications Medications (Trade) Dose Ordered Sig/Doris Start Time Stop Time Status Last Admin Dose Admin Acetaminophen (Tylenol) 650 mg PRN Q4HRS PRN 09/23/20 02:00 Acetaminophen/ Hydrocodone Bitart (Lortab 7.5/325) 1 tab PRN Q6HRS PRN 09/23/20 02:00 09/23/20 23:03 1 TAB Albuterol Sulfate (Ventolin Neb Soln) 2.5 mg RTQID 09/23/20 08:00 09/24/20 08:04 2.5 MG Alprazolam (Xanax) 0.5 mg PRN TID PRN 09/23/20 02:00 09/24/20 01:30 0.5 MG Aspirin (Aspirin Chewable) 81 mg DAILY 09/23/20 09:00 09/24/20 08:39 81 MG Budesonide (Pulmicort) 0.5 mg RTBID 09/23/20 08:00 09/24/20 08:04 0.5 MG Ceftriaxone Sodium (Rocephin) 1 gm Q24H 09/23/20 13:00 09/23/20 12:44 1 GM Citalopram Hydrobromide (CeleXA) 40 mg DAILY 09/23/20 09:00 09/24/20 08:39 40 MG Diclofenac Sodium (Voltaren) 1 soham BID 09/23/20 09:00 09/24/20 08:41 1 SOHAM Docusate Sodium (Colace) 100 mg DAILY 09/23/20 09:00 09/23/20 08:40 100 MG Doxycycline Hyclate (Vibra-Tab) 100 mg BID 09/23/20 15:00 09/24/20 08:39 100 MG Enoxaparin Sodium (Lovenox 60mg Syringe) 60 mg Q12HR 09/23/20 21:00 09/24/20 08:41 60 MG Ergocalciferol (Vitamin D2) 50,000 unit WEEKLY 09/25/20 09:00 Famotidine (Pepcid) 20 mg DAILY 09/23/20 09:00 09/24/20 08:39 20 MG Ferrous Sulfate (Feosol) 325 mg DAILY 09/23/20 09:00 09/24/20 08:39 325 MG Furosemide (Lasix) 40 mg DAILY 09/23/20 09:00 09/24/20 08:40 40 MG Gabapentin (Neurontin) 800 mg BID 09/23/20 09:00 09/24/20 08:39 800 MG Lactic Acid (Lac-Hydrin) 1 soham PRN BID PRN 09/23/20 02:00 09/24/20 01:30 1 SOHAM Lactobacillus Rhamnosus (Culturelle) 1 cap BID 09/23/20 21:00 09/24/20 08:39 1 CAP Levothyroxine Sodium (Synthroid) 350 mcg DAILY06 09/23/20 06:00 09/24/20 07:07 350 MCG Losartan Potassium (Cozaar) 50 mg DAILY 09/23/20 09:00 09/24/20 08:40 50 MG Magnesium Oxide (Magnesium Oxide) 400 mg BIDAC 09/23/20 07:30 09/24/20 08:39 400 MG Metoprolol Succinate (Toprol Xl) 100 mg DAILY 09/23/20 09:00 09/24/20 08:41 100 MG Non-Formulary Medication (Levothyroxine Sodium (Synthroid)) 1 tab DAILY 09/23/20 09:00 UNV Pramipexole Dihydrochloride (miraPEX) 1 mg HS 09/23/20 21:00 09/23/20 22:54 1 MG Psyllium Hydrophilic Mucilloid (Metamucil Fiber Packet) 1 pkt QODAY 09/23/20 09:00 09/23/20 08:39 1 PKT Sodium Chloride 1,000 ml @ 75 mls/hr [id number] 09/22/20 16:30 09/23/20 14:36 75 MLS/HR Vancomycin HCl (Vanco Per Pharmacy) 1 each PRN DAILY PRN 09/22/20 20:15 09/23/20 14:12 DC 09/23/20 02:05 1 EACH Vancomycin HCl (Vancomycin Trough Level) 1 each 1X ONCE 09/24/20 20:30 09/23/20 14:14 DC Vancomycin HCl 1.25 gm/Sodium Chloride 250 ml @ 166.667 mls/hr 1X ONCE 09/22/20 20:00 09/22/20 21:29 UNV Vancomycin HCl 1.5 gm/Sodium Chloride 500 ml @ 250 mls/hr Q24H 09/23/20 21:00 09/23/20 14:12 DC Vancomycin HCl 1 gm/Sodium Chloride 250 ml @ 250 mls/hr 1X ONCE 09/22/20 21:15 09/22/20 22:14 UNV Vancomycin HCl 2 gm/Sodium Chloride 500 ml @ 250 mls/hr 1X ONCE 09/22/20 21:00 09/22/20 22:59 DC 09/22/20 21:20 250 MLS/HR Labs: Lab Laboratory Tests Test 09/23/20 16:17 White Blood Count 5.8 x10^3/uL (4.0-11.0) Red Blood Count 2.97 x10^6/uL (3.50-5.40) Hemoglobin 9.3 g/dL (12.0-15.5) Hematocrit 28.3 % (36.0-47.0) Mean Corpuscular Volume 95 fL (79-100) Mean Corpuscular Hemoglobin 31 pg (25-35) Mean Corpuscular Hemoglobin Concent 33 g/dL (31-37) Red Cell Distribution Width 15.0 % (11.5-14.5) Platelet Count 168 x10^3/uL (140-400) Neutrophils (%) (Auto) 72 % (31-73) Lymphocytes (%) (Auto) 17 % (24-48) Monocytes (%) (Auto) 7 % (0-9) Eosinophils (%) (Auto) 4 % (0-3) Basophils (%) (Auto) 1 % (0-3) Neutrophils # (Auto) 4.1 x10^3/uL (1.8-7.7) Lymphocytes # (Auto) 1.0 x10^3/uL (1.0-4.8) Monocytes # (Auto) 0.4 x10^3/uL (0.0-1.1) Eosinophils # (Auto) 0.2 x10^3/uL (0.0-0.7) Basophils # (Auto) 0.0 x10^3/uL (0.0-0.2) Sodium Level 140 mmol/L (136-145) Potassium Level 4.0 mmol/L (3.5-5.1) Chloride Level 107 mmol/L (98-107) Carbon Dioxide Level 26 mmol/L (21-32) Anion Gap 7 (6-14) Blood Urea Nitrogen 24 mg/dL (7-20) Creatinine 1.1 mg/dL (0.6-1.0) Estimated GFR (Cockcroft-Gault) 49.4 BUN/Creatinine Ratio 22 (6-20) Glucose Level 107 mg/dL (70-99) Calcium Level 7.4 mg/dL (8.5-10.1) Total Bilirubin 0.2 mg/dL (0.2-1.0) Aspartate Amino Transf (AST/SGOT) 12 U/L (15-37) Alanine Aminotransferase (ALT/SGPT) 10 U/L (14-59) Alkaline Phosphatase 107 U/L (46-116) Total Protein 6.1 g/dL (6.4-8.2) Albumin 2.1 g/dL (3.4-5.0) Albumin/Globulin Ratio 0.5 (1.0-1.7) Objective: Assessment: 1. Encephalopathy, resolved, likely metabolic. 2. Left lower extremity cellulitis from chronic underlying wound, 3. Urinary tract infection, history of recurrent urinary tract infection with urinary incontinence, recently treated with Augmentin for Klebsiella urinary tract infection. 4. History of kidney stone. 5. Possible bacterial pneumonia. 6. Recent COVID-19 exposure. 7. Anxiety and depression. 8. History of allergies to AMOXICILLIN. Plan: Plan of Care Pt and OT as tolerated 1. Continue ceftriaxone. 2. cont doxycycline. 3. Follow up labs and cultures. 4. Continue supportive care. 5. Continue local wound care. Discussed with nursing staff. OTILIA EVANGELISTA MD Sep 24, 2020 12:09
[2020-09-24] MEDS: cefTRIAXone IV Push 1 GM VIAL. IVP SCH (12:14)
[2020-09-24] MEDS: HYDROcodone/APAP 7.5/325MG 1 TAB TABLET PO PRN (12:15)
--- NOTE | 2020-09-24 14:18 | PDOC ---
PROGRESS NOTES Date of Service DATE: 09/24/20 TIME: 14:17 Assessment Problems Medical Problems: (1) Altered mental status Status: Acute Altered mental status, metabolic encephalopathy, related to urinary tract infection which has cleared. Peripheral neuropathy Plan Patient says she does not think she needs to see a neurologist, I agree, will follow up as needed Treat medical diseases Subjective no complaints Objective Vital Signs Date Time Temp Pulse Resp B/P (MAP) Pulse Ox O2 Delivery O2 Flow Rate FiO2 09/24/20 13:15 20 98 09/24/20 12:15 Nasal Cannula 09/24/20 12:09 2.0 09/24/20 11:00 101.8 78 110/60 (77) 101.8 Intake and Output 09/24/20 07:00 Intake Total 1660 ml Output Total 1551 ml Balance 109 ml Intake Oral 760 ml IV Total 900 ml Output Urine Total 1550 ml Stool Total 1 ml PHYSICAL EXAM Alert. Oriented to time, place and person. PERRL. EOMI. CN: no focal findings. Muscle tone: normal. Muscle strength: 4/5 DTR: 1+ Plantar reflex: Flexor Gait: not examined in bed. Sensory exam: Stocking loss. No cerebellar signs elicited. Review of Relevant I have reviewed the following items mikael (where applicable) has been applied. Labs Laboratory Tests Test 09/22/20 17:30 09/22/20 19:45 09/23/20 16:17 Coronavirus (PCR) Not detected (Not Detected) O2 Saturation 97 % (92-99) Arterial Blood pH 7.42 (7.35-7.45) Arterial Blood pCO2 at Patient Temp 40 mmHg (35-46) Arterial Blood pO2 at Patient Temp 93 mmHg (65-108) Arterial Blood HCO3 25 mmol/L (21-28) Arterial Blood Base Excess 1 mmol/L (-3-3) Oxyhemoglobin 96.3 % Methemoglobin 0.2 % (0.0-1.9) Carbon Monoxide, Quantitative 0.3 % (0.0-1.9) FiO2 28 White Blood Count 5.8 x10^3/uL (4.0-11.0) Red Blood Count 2.97 x10^6/uL (3.50-5.40) Hemoglobin 9.3 g/dL (12.0-15.5) Hematocrit 28.3 % (36.0-47.0) Mean Corpuscular Volume 95 fL (79-100) Mean Corpuscular Hemoglobin 31 pg (25-35) Mean Corpuscular Hemoglobin Concent 33 g/dL (31-37) Red Cell Distribution Width 15.0 % (11.5-14.5) Platelet Count 168 x10^3/uL (140-400) Neutrophils (%) (Auto) 72 % (31-73) Lymphocytes (%) (Auto) 17 % (24-48) Monocytes (%) (Auto) 7 % (0-9) Eosinophils (%) (Auto) 4 % (0-3) Basophils (%) (Auto) 1 % (0-3) Neutrophils # (Auto) 4.1 x10^3/uL (1.8-7.7) Lymphocytes # (Auto) 1.0 x10^3/uL (1.0-4.8) Monocytes # (Auto) 0.4 x10^3/uL (0.0-1.1) Eosinophils # (Auto) 0.2 x10^3/uL (0.0-0.7) Basophils # (Auto) 0.0 x10^3/uL (0.0-0.2) Sodium Level 140 mmol/L (136-145) Potassium Level 4.0 mmol/L (3.5-5.1) Chloride Level 107 mmol/L (98-107) Carbon Dioxide Level 26 mmol/L (21-32) Anion Gap 7 (6-14) Blood Urea Nitrogen 24 mg/dL (7-20) Creatinine 1.1 mg/dL (0.6-1.0) Estimated GFR (Cockcroft-Gault) 49.4 BUN/Creatinine Ratio 22 (6-20) Glucose Level 107 mg/dL (70-99) Calcium Level 7.4 mg/dL (8.5-10.1) Total Bilirubin 0.2 mg/dL (0.2-1.0) Aspartate Amino Transf (AST/SGOT) 12 U/L (15-37) Alanine Aminotransferase (ALT/SGPT) 10 U/L (14-59) Alkaline Phosphatase 107 U/L (46-116) Total Protein 6.1 g/dL (6.4-8.2) Albumin 2.1 g/dL (3.4-5.0) Albumin/Globulin Ratio 0.5 (1.0-1.7) Laboratory Tests Test 09/23/20 16:17 White Blood Count 5.8 x10^3/uL (4.0-11.0) Red Blood Count 2.97 x10^6/uL (3.50-5.40) Hemoglobin 9.3 g/dL (12.0-15.5) Hematocrit 28.3 % (36.0-47.0) Mean Corpuscular Volume 95 fL (79-100) Mean Corpuscular Hemoglobin 31 pg (25-35) Mean Corpuscular Hemoglobin Concent 33 g/dL (31-37) Red Cell Distribution Width 15.0 % (11.5-14.5) Platelet Count 168 x10^3/uL (140-400) Neutrophils (%) (Auto) 72 % (31-73) Lymphocytes (%) (Auto) 17 % (24-48) Monocytes (%) (Auto) 7 % (0-9) Eosinophils (%) (Auto) 4 % (0-3) Basophils (%) (Auto) 1 % (0-3) Neutrophils # (Auto) 4.1 x10^3/uL (1.8-7.7) Lymphocytes # (Auto) 1.0 x10^3/uL (1.0-4.8) Monocytes # (Auto) 0.4 x10^3/uL (0.0-1.1) Eosinophils # (Auto) 0.2 x10^3/uL (0.0-0.7) Basophils # (Auto) 0.0 x10^3/uL (0.0-0.2) Sodium Level 140 mmol/L (136-145) Potassium Level 4.0 mmol/L (3.5-5.1) Chloride Level 107 mmol/L (98-107) Carbon Dioxide Level 26 mmol/L (21-32) Anion Gap 7 (6-14) Blood Urea Nitrogen 24 mg/dL (7-20) Creatinine 1.1 mg/dL (0.6-1.0) Estimated GFR (Cockcroft-Gault) 49.4 BUN/Creatinine Ratio 22 (6-20) Glucose Level 107 mg/dL (70-99) Calcium Level 7.4 mg/dL (8.5-10.1) Total Bilirubin 0.2 mg/dL (0.2-1.0) Aspartate Amino Transf (AST/SGOT) 12 U/L (15-37) Alanine Aminotransferase (ALT/SGPT) 10 U/L (14-59) Alkaline Phosphatase 107 U/L (46-116) Total Protein 6.1 g/dL (6.4-8.2) Albumin 2.1 g/dL (3.4-5.0) Albumin/Globulin Ratio 0.5 (1.0-1.7) Medications Current Medications Ceftriaxone Sodium (Rocephin) 1 gm 1X ONCE IVP Last administered on 09/22/20at 12:49; Start 09/22/20 at 12:30; Stop 09/22/20 at 12:31; Status DC Sodium Chloride 1,000 ml @ 75 mls/hr [id number] IV Last administered on 09/23/20at 14:36; Start 09/22/20 at 16:30 Vancomycin HCl 1.25 gm/Sodium Chloride 250 ml @ 166.667 mls/hr 1X ONCE IV ; Start 09/22/20 at 20:00; Stop 09/22/20 at 21:29; Status UNV Vancomycin HCl (Vanco Per Pharmacy) 1 each PRN DAILY PRN MC SEE COMMENTS Last administered on 09/23/20at 02:05; Start 09/22/20 at 20:15; Stop 09/23/20 at 14:12; Status DC Vancomycin HCl 2 gm/Sodium Chloride 500 ml @ 250 mls/hr 1X ONCE IV Last administered on 09/22/20at 21:20; Start 09/22/20 at 21:00; Stop 09/22/20 at 22:59; Status DC Vancomycin HCl 1 gm/Sodium Chloride 250 ml @ 250 mls/hr 1X ONCE IV ; Start 09/22/20 at 21:15; Stop 09/22/20 at 22:14; Status UNV Vancomycin HCl 1.5 gm/Sodium Chloride 500 ml @ 250 mls/hr Q24H IV ; Start 09/23/20 at 21:00; Stop 09/23/20 at 14:12; Status DC Vancomycin HCl (Vancomycin Trough Level) 1 each 1X ONCE MC ; Start 09/24/20 at 20:30; Stop 09/23/20 at 14:14; Status DC Acetaminophen (Tylenol) 650 mg PRN Q4HRS PRN PO TEMP OVER 100.4F; Start 09/23/20 at 02:00 Alprazolam (Xanax) 0.5 mg PRN TID PRN PO ANXIETY / AGITATION Last administered on 09/24/20at 01:30; Start 09/23/20 at 02:00 Lactic Acid (Lac-Hydrin) 1 jhoana PRN BID PRN TP DRY SKIN / SCALING Last administered on 09/24/20 01:30; Start 09/23/20 at 02:00 Aspirin (Aspirin Chewable) 81 mg DAILY PO Last administered on 09/24/20 08:39; Start 09/23/20 at 09:00 Diclofenac Sodium (Voltaren) 1 jhoana BID TP Last administered on 09/24/20 08:41; Start 09/23/20 at 09:00 Docusate Sodium (Colace) 100 mg DAILY PO Last administered on 09/23/20at 08:40; Start 09/23/20 at 09:00 Ergocalciferol (Vitamin D2) 50,000 unit WEEKLY PO ; Start 09/25/20 at 09:00 Famotidine (Pepcid) 20 mg DAILY PO Last administered on 09/24/20at 08:39; Start 09/23/20 at 09:00 Ferrous Sulfate (Feosol) 325 mg DAILY PO Last administered on 09/24/20 08:39; Start 09/23/20 at 09:00 Furosemide (Lasix) 40 mg DAILY PO Last administered on 09/24/20at 08:40; Start 09/23/20 at 09:00 Acetaminophen/ Hydrocodone Bitart (Lortab 7.5/325) 1 tab PRN Q6HRS PRN PO MODERATE PAIN 4-6 Last administered on 09/24/20at 12:15; Start 09/23/20 at 02:00 Levothyroxine Sodium (Synthroid) 300 mcg DAILY06 PO ; Start 09/23/20 at 06:00; Status Cancel Losartan Potassium (Cozaar) 50 mg DAILY PO Last administered on 09/24/20at 08:40; Start 09/23/20 at 09:00 Magnesium Oxide (Magnesium Oxide) 400 mg BIDAC PO Last administered on 09/24/20 08:39; Start 09/23/20 at 07:30 Metoprolol Succinate (Toprol Xl) 100 mg DAILY PO Last administered on 09/24/20 08:41; Start 09/23/20 at 09:00 Budesonide (Pulmicort) 0.5 mg RTBID NEB Last administered on 09/24/20 08:04; Start 09/23/20 at 08:00 Citalopram Hydrobromide (CeleXA) 40 mg DAILY PO Last administered on 09/24/20at 08:39; Start 09/23/20 at 09:00 Gabapentin (Neurontin) 800 mg BID PO Last administered on 09/24/20at 08:39; Start 09/23/20 at 09:00 Non-Formulary Medication (Levothyroxine Sodium (Synthroid)) 1 tab DAILY PO ; Start 09/23/20 at 09:00; Status UNV Pramipexole Dihydrochloride (miraPEX) 1 mg HS PO Last administered on 09/23/20at 22:54; Start 09/23/20 at 21:00 Psyllium Hydrophilic Mucilloid (Metamucil Fiber Packet) 1 pkt QODAY PO Last administered on 09/23/20at 08:39; Start 09/23/20 at 09:00 Albuterol Sulfate (Ventolin Neb Soln) 2.5 mg RTQID NEB Last administered on 09/24/20 12:09; Start 09/23/20 at 08:00 Levothyroxine Sodium (Synthroid) 350 mcg DAILY06 PO Last administered on 09/24/20 07:07; Start 09/23/20 at 06:00 Ceftriaxone Sodium (Rocephin) 1 gm Q24H IVP Last administered on 09/24/20at 12:14; Start 09/23/20 at 13:00 Enoxaparin Sodium (Lovenox 60mg Syringe) 60 mg Q12HR SQ Last administered on 09/24/20 08:41; Start 09/23/20 at 21:00 Lactobacillus Rhamnosus (Culturelle) 1 cap BID PO Last administered on 09/24/20 08:39; Start 09/23/20 at 21:00 Doxycycline Hyclate (Vibra-Tab) 100 mg BID PO Last administered on 09/24/20 08:39; Start 09/23/20 at 15:00 Active Scripts Active Tylenol (Acetaminophen) 325 Mg Tablet 650 Mg PO PRN Q4HRS PRN 30 Days Ammonium Lactate 226 Gm Lotion 1 Jhoana TP PRN BID PRN 30 Days Magnesium Oxide 400 Mg Tablet 400 Mg PO BIDAC 30 Days Alprazolam 0.5 Mg Tablet 0.5 Mg PO PRN TID PRN 6 Days Voltaren (Diclofenac Sodium) 100 Gm Gel..gram. 1 Jhoana TP BID 30 Days Reported Mirapex (Pramipexole Di-Hcl) 1 Mg Tablet 1 Mg PO HS Gabapentin 800 Mg Tablet 800 Mg PO TID Ferrous Sulfate 325 Mg Tablet 1 Tab PO DAILY Furosemide 40 Mg Tablet 1 Tab PO DAILY Synthroid (Levothyroxine Sodium) 200 Mcg Tablet 1 Tab PO DAILY Synthroid (Levothyroxine Sodium) 150 Mcg Tablet 1 Tab PO DAILY Hydrocodone-Apap 7.5-325 (Hydrocodone Bit/Acetaminophen) 1 Tab Tablet 1 Tab PO PRN Q6HRS PRN Losartan Potassium 50 Mg Tablet 50 Mg PO DAILY Metamucil (Psyllium Husk) 0.52 Gm Capsule 1 Cap PO QODAY 30 Days Colace (Docusate Sodium) 100 Mg Capsule 1 Cap PO DAILY 15 Days Aspirin 81 Mg Tab.chew 81 Mg PO DAILY Famotidine 20 Mg Tablet 20 Mg PO BID Vitamin D2 (Ergocalciferol (Vitamin D2)) 50,000 Unit Capsule 50,000 Unit PO WEEKLY Symbicort 160-4.5 Mcg Inhaler (Budesonide/Formoterol Fumarate) 10.2 Gm Hfa.aer.ad 2 Puff IH BID Citalopram Hbr (Citalopram Hydrobromide) 40 Mg Tablet 40 Mg PO DAILY Metoprolol Succinate ( Xl ) (Metoprolol Succinate) 100 Mg Tab.er.24h 100 Mg PO DAILY Vitals/I & O Vital Sign - Last 24 Hours 09/23/20 09/23/20 09/23/20 09/23/20 15:00 19:00 19:49 21:04 Temp 99.2 98.6 99.2 98.6 Pulse 79 76 Resp 22 30 B/P (MAP) 128/53 (78) 108/50 (69) Pulse Ox 95 100 100 O2 Delivery Room Air Room Air Nasal Cannula Nasal Cannula O2 Flow Rate 2.0 2.0 09/23/20 09/23/20 09/24/20 09/24/20 22:58 23:03 00:10 03:22 Temp 98.2 98.4 98.2 98.4 Pulse 76 79 Resp 24 20 22 18 B/P (MAP) 133/66 (88) 105/71 (82) Pulse Ox 100 100 100 98 O2 Delivery Room Air Nasal Cannula Nasal Cannula Room Air O2 Flow Rate 2.0 2.0 09/24/20 09/24/20 09/24/20 09/24/20 07:00 08:00 08:13 08:40 Temp 99.6 99.6 Pulse 90 85 Resp 18 B/P (MAP) 117/56 (76) 117/56 Pulse Ox 96 98 O2 Delivery Nasal Cannula Nasal Cannula Nasal Cannula O2 Flow Rate 2.0 2.0 2.0 09/24/20 09/24/20 09/24/20 09/24/20 08:41 11:00 12:09 12:15 Temp 101.8 101.8 Pulse 83 78 Resp 18 20 B/P (MAP) 117/56 110/60 (77) Pulse Ox 90 98 96 O2 Delivery Nasal Cannula Nasal Cannula Nasal Cannula O2 Flow Rate 2.0 2.0 09/24/20 13:15 Resp 20 Pulse Ox 98 Intake and Output 09/23/20 09/23/20 09/24/20 15:00 23:00 07:00 Intake Total 1460 ml 200 ml Output Total 1251 ml 300 ml Balance 209 ml -100 ml Justicifation of Admission Dx: Justifications for Admission: Justification of Admission Dx: N/A SHAWN TEJADA MD Sep 24, 2020 14:18
[2020-09-24 15:00] VITALS: BP 99/42
[2020-09-24] MEDS ORDERED: PHENOL ORAL SPRAY 177ML BOTTLE. PO PRN (15:15)
--- NOTE | 2020-09-24 16:35 | RAD ---
Exam: Pelvis with right hip 2 views INDICATION: Severe pain TECHNIQUE: Frontal view of the pelvis with frontal and frog-leg lateral views of the right Comparisons: None FINDINGS: Exam is limited secondary to body habitus. There is diffuse osteopenia. No acute or healed fractures. Soft tissues are unremarkable. Joint spaces are well-maintained. IMPRESSION: No displaced fracture identified. If the patient is acutely unable to bear weight in the setting of t rauma a MRI to rule out occult hip fracture is recommended. Electronically signed by: Tray Tavera MD (09/24/2020 4:33 PM) TRE
[2020-09-24 19:13] VITALS: BP 91/39
[2020-09-24] MEDS: NYSTATIN TOPICAL POWDER 15GM BOTTLE. TP SCH (20:44)
[2020-09-24] MEDS: PRAMIPEXOLE 0.25 MG TABLET. PO SCH (20:46)
[2020-09-24 23:50] VITALS: BP 87/56
[2020-09-25 03:34] VITALS: BP 99/48
[2020-09-25] MEDS: LEVOTHYROXINE 175 MCG TABLET PO SCH (05:47)
[2020-09-25 05:59] LABS: CALCIUM 8.2 mg/dL (8.5-10.1); CREATININE 1.2 mg/dL (0.6-1.0); GFR 44.7; POTASSIUM 4.5 mmol/L (3.5-5.1)
[2020-09-25 06:04] LABS: BASO % 0 % (0-3); EOS # 0.2 x10^3/uL (0.0-0.7); EOS % 3 % (0-3); HEMATOCRIT 28.7 % (36.0-47.0); HEMOGLOBIN 9.3 g/dL (12.0-15.5); LYMPH # 1.5 x10^3/uL (1.0-4.8); LYMPH % 19 % (24-48); MEAN CORPUSCULAR HEMOGLOBIN 31 pg (25-35); MEAN CORPUSCULAR HGB CONC 33 g/dL (31-37); MEAN CORPUSCULAR VOLUME 96 fL (79-100); MONO # 0.6 x10^3/uL (0.0-1.1); MONO % 8 % (0-9); NEUT # 5.7 x10^3/uL (1.8-7.7); NEUT % 71 % (31-73); PLATELET COUNT 163 x10^3/uL (140-400); RED CELL DISTRIBUTION WIDTH 15.1 % (11.5-14.5)
[2020-09-25 06:22] VITALS: BP 109/46
[2020-09-25] MEDS: BUDESONIDE 0.5 MG/2 ML NEBU. NEB SCH ×3 (08:00→19:56)
[2020-09-25] MEDS: ALBUTEROL SULFATE 2.5 MG/3 ML NEBU. NEB SCH ×4 (08:00→19:57)
[2020-09-25] MEDS: PSYLLIUM HUSK (SUGAR FREE) 1 PKT PACKET PO SCH (09:00)
[2020-09-25] MEDS ORDERED: ERGOCALCIFEROL (VITAMIN D2) 50,000 UNIT CAPSULE. PO SCH (09:00)
[2020-09-25] MEDS: NYSTATIN TOPICAL POWDER 15GM BOTTLE. TP SCH ×2 (09:37→19:58)
[2020-09-25] MEDS: DICLOFENAC SODIUM 1% TOPICAL GEL 100GM TUBE. TP SCH ×2 (09:37→19:58)
[2020-09-25] MEDS: GABAPENTIN 400 MG CAPSULE. PO SCH ×2 (09:38→19:57)
[2020-09-25] MEDS: CITALOPRAM 20 MG TABLET. PO SCH (09:38)
[2020-09-25] MEDS: HYDROcodone/APAP 7.5/325MG 1 TAB TABLET PO PRN ×2 (09:38→17:19)
[2020-09-25] MEDS: ALPRAZolam 0.5 MG TABLET PO PRN ×2 (09:38→17:19)
[2020-09-25] MEDS: ASPIRIN CHEWABLE 81 MG TABLET. PO SCH (09:39)
[2020-09-25] MEDS: DOCUSATE SODIUM 100 MG CAPSULE. PO SCH (09:39)
[2020-09-25] MEDS: FUROSEMIDE 40 MG TABLET. PO SCH (09:39)
[2020-09-25] MEDS: LACTOBACILLUS RHAMNOSUS GG 1 CAPSULE. PO SCH ×2 (09:39→19:57)
[2020-09-25] MEDS: FERROUS SULFATE 325 MG TABLET. PO SCH (09:39)
[2020-09-25] MEDS: METOPROLOL SUCC 24HR ER 100 MG TAB.ER.24H. PO SCH (09:41)
[2020-09-25] MEDS: FAMOTIDINE 20 MG TABLET. PO SCH (09:41)
[2020-09-25] MEDS: MAGNESIUM OXIDE 400 MG TABLET PO SCH ×2 (09:42→17:19)
[2020-09-25] MEDS: LOSARTAN POTASSIUM 50 MG TABLET. PO SCH (09:42)
[2020-09-25] MEDS: DOXYCYCLINE HYCLATE 100 MG TABLET PO SCH (09:49)
--- NOTE | 2020-09-25 11:20 | PDOC ---
Infectious Disease Note Subjective: Subjective Patient remains febrile Denies nausea, vomiting, diarrhea, abdominal pain Vital Signs: Vital Signs Vital Signs Date Time Temp Pulse Resp B/P (MAP) Pulse Ox O2 Delivery O2 Flow Rate FiO2 09/25/20 10:38 Room Air 09/25/20 09:42 112/49 09/25/20 09:41 67 09/25/20 06:22 97.4 18 94 97.4 09/24/20 20:00 2.0 Physical Exam: PHYSICAL EXAM VITALS: Within normal limits and are stable. GENERAL: She is alert HEENT: Normal cephalic atraumatic, external auditory canals are patent. EYES: Extraocular muscles are intact, pupils are equally round and reactive to light and accommodation. MUSCULOSKELETAL: Well developed, well nourished, good range of motion. ENDOCRINE: No thyromegaly was palpated. LYMPHATICS: No cervical chain or axillary nodes were noted. HEMATOPOIETIC: No bruising. NECK: Supple, no JVD, no thyromegaly was noted. LUNGS: Clear to auscultation in all lung davidson without rhonchi or wheezing. HEART: RRR, S1, S2 present. Peripheral pulses intact, no obvious murmurs were noted. ABDOMEN: Soft, nontender. Positive bowel sounds no organomegaly, normal bowel sounds. EXTREMITIES: Without any cyanosis, clubbing, or edema. Pedal pulses intact, Homans sign is negative. NEUROLOGIC: She is obtunded. PSYCHIATRIC: She is obtunded. SKIN: No ulcerations or rashes, good skin turgor, no jaundice. VASCULAR: Good capillary refill, neurovascular bundle appears to be intact. Medications: Inpatient Meds: Current Medications Medications (Trade) Dose Ordered Sig/Doris Start Time Stop Time Status Last Admin Dose Admin Acetaminophen (Tylenol) 650 mg PRN Q4HRS PRN 09/23/20 02:00 Acetaminophen/ Hydrocodone Bitart (Lortab 7.5/325) 1 tab PRN Q6HRS PRN 09/23/20 02:00 09/25/20 09:38 1 TAB Albuterol Sulfate (Ventolin Neb Soln) 2.5 mg RTQID 09/23/20 08:00 09/24/20 16:04 2.5 MG Alprazolam (Xanax) 0.5 mg PRN TID PRN 09/23/20 02:00 09/25/20 09:38 0.5 MG Aspirin (Aspirin Chewable) 81 mg DAILY 09/23/20 09:00 09/25/20 09:39 81 MG Budesonide (Pulmicort) 0.5 mg RTBID 09/23/20 08:00 09/24/20 08:04 0.5 MG Ceftriaxone Sodium (Rocephin) 1 gm Q24H 09/23/20 13:00 09/24/20 12:14 1 GM Citalopram Hydrobromide (CeleXA) 40 mg DAILY 09/23/20 09:00 09/25/20 09:38 40 MG Diclofenac Sodium (Voltaren) 1 soham BID 09/23/20 09:00 09/25/20 09:37 1 SOHAM Docusate Sodium (Colace) 100 mg DAILY 09/23/20 09:00 09/25/20 09:39 100 MG Doxycycline Hyclate (Vibra-Tab) 100 mg BID 09/23/20 15:00 09/25/20 09:49 100 MG Enoxaparin Sodium (Lovenox 60mg Syringe) 60 mg Q12HR 09/23/20 21:00 09/25/20 09:42 60 MG Ergocalciferol (Vitamin D2) 50,000 unit WEEKLY 09/25/20 09:00 09/25/20 09:37 50,000 UNIT Famotidine (Pepcid) 20 mg DAILY 09/23/20 09:00 09/25/20 09:41 20 MG Ferrous Sulfate (Feosol) 325 mg DAILY 09/23/20 09:00 09/25/20 09:39 325 MG Furosemide (Lasix) 40 mg DAILY 09/23/20 09:00 09/25/20 09:39 40 MG Gabapentin (Neurontin) 800 mg BID 09/23/20 09:00 09/25/20 09:38 800 MG Lactic Acid (Lac-Hydrin) 1 soham PRN BID PRN 09/23/20 02:00 09/24/20 01:30 1 SOHAM Lactobacillus Rhamnosus (Culturelle) 1 cap BID 09/23/20 21:00 09/25/20 09:39 1 CAP Levothyroxine Sodium (Synthroid) 350 mcg DAILY06 09/23/20 06:00 09/25/20 05:47 350 MCG Losartan Potassium (Cozaar) 50 mg DAILY 09/23/20 09:00 09/25/20 09:42 50 MG Magnesium Oxide (Magnesium Oxide) 400 mg BIDAC 09/23/20 07:30 09/25/20 09:42 400 MG Metoprolol Succinate (Toprol Xl) 100 mg DAILY 09/23/20 09:00 09/25/20 09:41 100 MG Non-Formulary Medication (Levothyroxine Sodium (Synthroid)) 1 tab DAILY 09/23/20 09:00 UNV Nystatin (Nystop) 1 soham BID 09/24/20 21:00 09/25/20 09:37 1 SOHAM Phenol (Chloraseptic) 1 spray PRN Q2HR PRN 09/24/20 15:15 Pramipexole Dihydrochloride (miraPEX) 1 mg HS 09/23/20 21:00 09/24/20 20:46 1 MG Psyllium Hydrophilic Mucilloid (Metamucil Fiber Packet) 1 pkt QODAY 09/23/20 09:00 09/23/20 08:39 1 PKT Sodium Chloride 1,000 ml @ 75 mls/hr [id number] 09/22/20 16:30 09/23/20 14:36 75 MLS/HR Vancomycin HCl (Vanco Per Pharmacy) 1 each PRN DAILY PRN 09/22/20 20:15 09/23/20 14:12 DC 09/23/20 02:05 1 EACH Vancomycin HCl (Vancomycin Trough Level) 1 each 1X ONCE 09/24/20 20:30 09/23/20 14:14 DC Vancomycin HCl 1.25 gm/Sodium Chloride 250 ml @ 166.667 mls/hr 1X ONCE 09/22/20 20:00 09/22/20 21:29 UNV Vancomycin HCl 1.5 gm/Sodium Chloride 500 ml @ 250 mls/hr Q24H 09/23/20 21:00 09/23/20 14:12 DC Vancomycin HCl 1 gm/Sodium Chloride 250 ml @ 250 mls/hr 1X ONCE 09/22/20 21:15 09/22/20 22:14 UNV Vancomycin HCl 2 gm/Sodium Chloride 500 ml @ 250 mls/hr 1X ONCE 09/22/20 21:00 09/22/20 22:59 DC 09/22/20 21:20 250 MLS/HR Labs: Lab Laboratory Tests Test 09/25/20 04:30 White Blood Count 8.0 x10^3/uL (4.0-11.0) Red Blood Count 3.00 x10^6/uL (3.50-5.40) Hemoglobin 9.3 g/dL (12.0-15.5) Hematocrit 28.7 % (36.0-47.0) Mean Corpuscular Volume 96 fL (79-100) Mean Corpuscular Hemoglobin 31 pg (25-35) Mean Corpuscular Hemoglobin Concent 33 g/dL (31-37) Red Cell Distribution Width 15.1 % (11.5-14.5) Platelet Count 163 x10^3/uL (140-400) Neutrophils (%) (Auto) 71 % (31-73) Lymphocytes (%) (Auto) 19 % (24-48) Monocytes (%) (Auto) 8 % (0-9) Eosinophils (%) (Auto) 3 % (0-3) Basophils (%) (Auto) 0 % (0-3) Neutrophils # (Auto) 5.7 x10^3/uL (1.8-7.7) Lymphocytes # (Auto) 1.5 x10^3/uL (1.0-4.8) Monocytes # (Auto) 0.6 x10^3/uL (0.0-1.1) Eosinophils # (Auto) 0.2 x10^3/uL (0.0-0.7) Basophils # (Auto) 0.0 x10^3/uL (0.0-0.2) Sodium Level 140 mmol/L (136-145) Potassium Level 4.5 mmol/L (3.5-5.1) Chloride Level 107 mmol/L (98-107) Carbon Dioxide Level 25 mmol/L (21-32) Anion Gap 8 (6-14) Blood Urea Nitrogen 27 mg/dL (7-20) Creatinine 1.2 mg/dL (0.6-1.0) Estimated GFR (Cockcroft-Gault) 44.7 Glucose Level 99 mg/dL (70-99) Calcium Level 8.2 mg/dL (8.5-10.1) Objective: Assessment: 1. Encephalopathy, resolved, likely metabolic. 2. Left lower extremity cellulitis from chronic underlying wound, 3. Urinary tract infection, history of recurrent urinary tract infection with urinary incontinence, recently treated with Augmentin for Klebsiella urinary tract infection. 4. History of kidney stone. 5. Possible bacterial pneumonia. 6. Recent COVID-19 exposure. 7. Anxiety and depression. 8. History of allergies to AMOXICILLIN. Fever Plan: Plan of Care Obtain renal ultrasound 1. Continue ceftriaxone. 2. Start daptomycin, DC doxy 3. Follow up labs and cultures. 4. Continue supportive care. 5. Continue local wound care. Discussed with nursing staff. OTILIA EVANGELISTA MD Sep 25, 2020 11:20
[2020-09-25 11:30] VITALS: BP 99/49
--- NOTE | 2020-09-25 12:17 | PDOC ---
PROGRESS NOTES Date of Service: DATE: 09/25/20 TIME: 12:17 Chief Complaint Chief Complaint ASSESSMENT AND PLAN: Urinary tract infection, acute metabolic encephalopathy,, improved Altered mental status, metabolic encephalopathy, related to urinary tract infection which has improved neg COVID-19, Patchy wedge-shaped opacities in the medial left upper lung and right midlung, may represent multifocal infection/inflammation. Atypical edema may also result in this appearance. azotemia, acute renal injury UTI History of kidney stone. Possible bacterial pneumonia. Recent home contacrt COVID-19 exposure. fall risk admitted. plan IV fluids, IV antibiotics, ROCEPHIN 1 GM Q 24 HRS home medications, DVT prophylaxis. Consult Infectious Disease. Obtain renal ultrasound Start daptomycin, DC doxy Follow up labs and cultures. c/o right hip pain, worse x 1 week , no trauma noted, will x ray Duration of Treatment Expected * 2 weeks Discharge Recommendations * Home with Assistance * Home with Home Health D/W RN No displaced fracture identified. If the patient is acutely unable to bear weight in the setting of trauma a MRI to rule out occult hip fracture is recommended. hip History of Present Illness History of Present Illness HISTORY OF PRESENT ILLNESS: The patient is a pleasant 70-year-old female who presents to the ER with mental status change. While in the ER, she was noted to have a UTI. I discussed the case with ER physician. We are going to admit the patient, give her IV fluids, IV antibiotics and rule out COVID-19. PAST MEDICAL HISTORY: Asthma, anxiety, CHF, depression, GERD, hyperlipidemia, hypertension, hypothyroidism, MRSA, pneumonia, UTI, hep C, neuropathy, foot wound, , hysterectomy, oophorectomy, tonsillectomy, carpal tunnel surgery, weight loss surgery.Anxiety, depression, gastroesophageal reflux, hyperlipidemia, hypertension, hypothyroidism, obesity, previous MRSA infection, previous pneumonia. PAST SURGICAL HISTORY: Hysterectomy, oophorectomy and tonsillectomy. She has had previous carpal tunnel release surgery, bariatric surgery. SOCIAL HISTORY: She has never smoked. ALLERGIES: AMOXICILLIN, CELEBREX, AUGMENTIN. FAMILY HISTORY: Diabetes. SOCIAL HISTORY: She does not drink, smoke or take drugs. MEDICATIONS: Reviewed, please refer to the MRAD. REVIEW OF SYSTEMS: right hip pain, incontinence. Vitals Vitals Vital Signs Date Time Temp Pulse Resp B/P (MAP) Pulse Ox O2 Delivery O2 Flow Rate FiO2 09/25/20 12:13 94 Nasal Cannula 2.0 09/25/20 09:42 112/49 09/25/20 09:41 67 09/25/20 06:22 97.4 18 97.4 Physical Exam Physical Exam VITALS: Within normal limits and are stable. GENERAL: She is alert HEENT: Normal cephalic atraumatic, external auditory canals are patent. EYES: Extraocular muscles are intact, pupils are equally round and reactive to light and accommodation. MUSCULOSKELETAL: Well developed, well nourished, good range of motion. ENDOCRINE: No thyromegaly was palpated. LYMPHATICS: No cervical chain or axillary nodes were noted. HEMATOPOIETIC: No bruising. NECK: Supple, no JVD, no thyromegaly was noted. LUNGS: Clear to auscultation in all lung davidson without rhonchi or wheezing. HEART: RRR, S1, S2 present. Peripheral pulses intact, no obvious murmurs were noted. ABDOMEN: Soft, nontender. Positive bowel sounds no organomegaly, normal bowel sounds. EXTREMITIES: Without any cyanosis, clubbing, or edema. Pedal pulses intact, Homans sign is negative. NEUROLOGIC: She is obtunded. PSYCHIATRIC: She is obtunded. SKIN: No ulcerations or rashes, good skin turgor, no jaundice. VASCULAR: Good capillary refill, neurovascular bundle appears to be intact. General: Alert, Oriented X3, Cooperative, No acute distress Heart: Regular rate, Normal S1 Lungs: Clear, Wheezing Abdomen: No tenderness Extremities: No cyanosis Labs LABS EXAM: Renal sonogram. HISTORY: Obstruction. TECHNIQUE: Sonographic imaging of the kidneys and bladder was performed. COMPARISON: 08/26/2020. FINDINGS: The exam is limited due to body habitus. The kidneys are normal in size. No solid or cystic renal lesion is seen. There is no hydronephrosis. There is a March catheter within the bladder. IMPRESSION: Sonographically unremarkable kidneys. Electronically signed by: Eli Wiggins MD (09/25/2020 12:51 PM) [facility] DICTATED and SIGNED BY: ELI WIGGINS MD DATE: 09/25/20 [id number] Exam: Pelvis with right hip 2 views INDICATION: Severe pain TECHNIQUE: Frontal view of the pelvis with frontal and frog-leg lateral views of the right Comparisons: None FINDINGS: Exam is limited secondary to body habitus. There is diffuse osteopenia. No acute or healed fractures. Soft tissues are unremarkable. Joint spaces are well- maintained. IMPRESSION: No displaced fracture identified. If the patient is acutely unable to bear weight in the setting of trauma a MRI to rule out occult hip fracture is recommended. Electronically signed by: Tray Lorenzo MD (09/24/2020 4:33 PM) [facility] DICTATED and SIGNED BY: TRAY LORENZO MD DATE: 09/24/20 [id number] 0 Laboratory Tests Test 09/25/20 04:30 White Blood Count 8.0 x10^3/uL (4.0-11.0) Red Blood Count 3.00 x10^6/uL (3.50-5.40) Hemoglobin 9.3 g/dL (12.0-15.5) Hematocrit 28.7 % (36.0-47.0) Mean Corpuscular Volume 96 fL (79-100) Mean Corpuscular Hemoglobin 31 pg (25-35) Mean Corpuscular Hemoglobin Concent 33 g/dL (31-37) Red Cell Distribution Width 15.1 % (11.5-14.5) Platelet Count 163 x10^3/uL (140-400) Neutrophils (%) (Auto) 71 % (31-73) Lymphocytes (%) (Auto) 19 % (24-48) Monocytes (%) (Auto) 8 % (0-9) Eosinophils (%) (Auto) 3 % (0-3) Basophils (%) (Auto) 0 % (0-3) Neutrophils # (Auto) 5.7 x10^3/uL (1.8-7.7) Lymphocytes # (Auto) 1.5 x10^3/uL (1.0-4.8) Monocytes # (Auto) 0.6 x10^3/uL (0.0-1.1) Eosinophils # (Auto) 0.2 x10^3/uL (0.0-0.7) Basophils # (Auto) 0.0 x10^3/uL (0.0-0.2) Sodium Level 140 mmol/L (136-145) Potassium Level 4.5 mmol/L (3.5-5.1) Chloride Level 107 mmol/L (98-107) Carbon Dioxide Level 25 mmol/L (21-32) Anion Gap 8 (6-14) Blood Urea Nitrogen 27 mg/dL (7-20) Creatinine 1.2 mg/dL (0.6-1.0) Estimated GFR (Cockcroft-Gault) 44.7 Glucose Level 99 mg/dL (70-99) Calcium Level 8.2 mg/dL (8.5-10.1) Assessment and Plan Assessmemt and Plan Problems Medical Problems: (1) Altered mental status Status: Acute * Evolving Evaluation Complexity Level * Moderate Complexity Pt/caregiver agrees with plan of care/goals * Yes Patient condition at conclusion of therapy * Pt in chair * Call light in reach * Phone in reach * PtIn no apparent distress * Pt denies further needs Communicated Patient Care With (Name, Title) * Loly RN; LUCIEN Veras Goal 1 - Bed Mobility Assistance Required * Independent Goal 2 - Transfers Assistance Required * Independent Goal 2 - Transfer Type * Sit to Stand Goal 3 - Ambulation Assistance Required * Independent Goal 3 - Ambulation Distance * 100' Goal 3 - Ambulation Device * Roller Walker Goal 4 - Stairs Assistance Required * Independent Goal 4 - Number of Stairs * 2-4 Goal 4 - Device on Stairs * Roller Walker Treatment Plan * Therapeutic Exercise * Bed Mobility Training * Transfer training * Gait Training * Dynamic Balance Training Frequency of Treatment Expected * 7 visits/week Duration of Treatment Expected * 2 weeks Discharge Recommendations * Home with Assistance * Home with Home Health Discharge Recommendation - DME * Rolling Walker needed * in order to complete ADLs * and ambulation safely Comment Review of Relevant I have reviewed the following items mikael (where applicable) has been applied. Labs Laboratory Tests Test 09/23/20 16:17 09/25/20 04:30 White Blood Count 5.8 x10^3/uL (4.0-11.0) 8.0 x10^3/uL (4.0-11.0) Red Blood Count 2.97 x10^6/uL (3.50-5.40) 3.00 x10^6/uL (3.50-5.40) Hemoglobin 9.3 g/dL (12.0-15.5) 9.3 g/dL (12.0-15.5) Hematocrit 28.3 % (36.0-47.0) 28.7 % (36.0-47.0) Mean Corpuscular Volume 95 fL (79-100) 96 fL (79-100) Mean Corpuscular Hemoglobin 31 pg (25-35) 31 pg (25-35) Mean Corpuscular Hemoglobin Concent 33 g/dL (31-37) 33 g/dL (31-37) Red Cell Distribution Width 15.0 % (11.5-14.5) 15.1 % (11.5-14.5) Platelet Count 168 x10^3/uL (140-400) 163 x10^3/uL (140-400) Neutrophils (%) (Auto) 72 % (31-73) 71 % (31-73) Lymphocytes (%) (Auto) 17 % (24-48) 19 % (24-48) Monocytes (%) (Auto) 7 % (0-9) 8 % (0-9) Eosinophils (%) (Auto) 4 % (0-3) 3 % (0-3) Basophils (%) (Auto) 1 % (0-3) 0 % (0-3) Neutrophils # (Auto) 4.1 x10^3/uL (1.8-7.7) 5.7 x10^3/uL (1.8-7.7) Lymphocytes # (Auto) 1.0 x10^3/uL (1.0-4.8) 1.5 x10^3/uL (1.0-4.8) Monocytes # (Auto) 0.4 x10^3/uL (0.0-1.1) 0.6 x10^3/uL (0.0-1.1) Eosinophils # (Auto) 0.2 x10^3/uL (0.0-0.7) 0.2 x10^3/uL (0.0-0.7) Basophils # (Auto) 0.0 x10^3/uL (0.0-0.2) 0.0 x10^3/uL (0.0-0.2) Sodium Level 140 mmol/L (136-145) 140 mmol/L (136-145) Potassium Level 4.0 mmol/L (3.5-5.1) 4.5 mmol/L (3.5-5.1) Chloride Level 107 mmol/L (98-107) 107 mmol/L (98-107) Carbon Dioxide Level 26 mmol/L (21-32) 25 mmol/L (21-32) Anion Gap 7 (6-14) 8 (6-14) Blood Urea Nitrogen 24 mg/dL (7-20) 27 mg/dL (7-20) Creatinine 1.1 mg/dL (0.6-1.0) 1.2 mg/dL (0.6-1.0) Estimated GFR (Cockcroft-Gault) 49.4 44.7 BUN/Creatinine Ratio 22 (6-20) Glucose Level 107 mg/dL (70-99) 99 mg/dL (70-99) Calcium Level 7.4 mg/dL (8.5-10.1) 8.2 mg/dL (8.5-10.1) Total Bilirubin 0.2 mg/dL (0.2-1.0) Aspartate Amino Transf (AST/SGOT) 12 U/L (15-37) Alanine Aminotransferase (ALT/SGPT) 10 U/L (14-59) Alkaline Phosphatase 107 U/L (46-116) Total Protein 6.1 g/dL (6.4-8.2) Albumin 2.1 g/dL (3.4-5.0) Albumin/Globulin Ratio 0.5 (1.0-1.7) Laboratory Tests Test 09/25/20 04:30 White Blood Count 8.0 x10^3/uL (4.0-11.0) Red Blood Count 3.00 x10^6/uL (3.50-5.40) Hemoglobin 9.3 g/dL (12.0-15.5) Hematocrit 28.7 % (36.0-47.0) Mean Corpuscular Volume 96 fL (79-100) Mean Corpuscular Hemoglobin 31 pg (25-35) Mean Corpuscular Hemoglobin Concent 33 g/dL (31-37) Red Cell Distribution Width 15.1 % (11.5-14.5) Platelet Count 163 x10^3/uL (140-400) Neutrophils (%) (Auto) 71 % (31-73) Lymphocytes (%) (Auto) 19 % (24-48) Monocytes (%) (Auto) 8 % (0-9) Eosinophils (%) (Auto) 3 % (0-3) Basophils (%) (Auto) 0 % (0-3) Neutrophils # (Auto) 5.7 x10^3/uL (1.8-7.7) Lymphocytes # (Auto) 1.5 x10^3/uL (1.0-4.8) Monocytes # (Auto) 0.6 x10^3/uL (0.0-1.1) Eosinophils # (Auto) 0.2 x10^3/uL (0.0-0.7) Basophils # (Auto) 0.0 x10^3/uL (0.0-0.2) Sodium Level 140 mmol/L (136-145) Potassium Level 4.5 mmol/L (3.5-5.1) Chloride Level 107 mmol/L (98-107) Carbon Dioxide Level 25 mmol/L (21-32) Anion Gap 8 (6-14) Blood Urea Nitrogen 27 mg/dL (7-20) Creatinine 1.2 mg/dL (0.6-1.0) Estimated GFR (Cockcroft-Gault) 44.7 Glucose Level 99 mg/dL (70-99) Calcium Level 8.2 mg/dL (8.5-10.1) Medications Current Medications Ceftriaxone Sodium (Rocephin) 1 gm 1X ONCE IVP Last administered on 09/22/20at 12:49; Start 09/22/20 at 12:30; Stop 09/22/20 at 12:31; Status DC Sodium Chloride 1,000 ml @ 75 mls/hr [id number] IV Last administered on 09/23/20at 14:36; Start 09/22/20 at 16:30 Vancomycin HCl 1.25 gm/Sodium Chloride 250 ml @ 166.667 mls/hr 1X ONCE IV ; Start 09/22/20 at 20:00; Stop 09/22/20 at 21:29; Status UNV Vancomycin HCl (Vanco Per Pharmacy) 1 each PRN DAILY PRN MC SEE COMMENTS Last administered on 09/23/20at 02:05; Start 09/22/20 at 20:15; Stop 09/23/20 at 14:12; Status DC Vancomycin HCl 2 gm/Sodium Chloride 500 ml @ 250 mls/hr 1X ONCE IV Last administered on 09/22/20at 21:20; Start 09/22/20 at 21:00; Stop 09/22/20 at 22:59; Status DC Vancomycin HCl 1 gm/Sodium Chloride 250 ml @ 250 mls/hr 1X ONCE IV ; Start 09/22/20 at 21:15; Stop 09/22/20 at 22:14; Status UNV Vancomycin HCl 1.5 gm/Sodium Chloride 500 ml @ 250 mls/hr Q24H IV ; Start 09/23/20 at 21:00; Stop 09/23/20 at 14:12; Status DC Vancomycin HCl (Vancomycin Trough Level) 1 each 1X ONCE MC ; Start 09/24/20 at 20:30; Stop 09/23/20 at 14:14; Status DC Acetaminophen (Tylenol) 650 mg PRN Q4HRS PRN PO TEMP OVER 100.4F; Start 09/23/20 at 02:00 Alprazolam (Xanax) 0.5 mg PRN TID PRN PO ANXIETY / AGITATION Last administered on 09/25/20at 09:38; Start 09/23/20 at 02:00 Lactic Acid (Lac-Hydrin) 1 soham PRN BID PRN TP DRY SKIN / SCALING Last administered on 09/24/20at 01:30; Start 09/23/20 at 02:00 Aspirin (Aspirin Chewable) 81 mg DAILY PO Last administered on 09/25/20at 09:39; Start 09/23/20 at 09:00 Diclofenac Sodium (Voltaren) 1 soham BID TP Last administered on 09/25/20at 09:37; Start 09/23/20 at 09:00 Docusate Sodium (Colace) 100 mg DAILY PO Last administered on 09/25/20at 09:39; Start 09/23/20 at 09:00 Ergocalciferol (Vitamin D2) 50,000 unit WEEKLY PO Last administered on 09/25/20at 09:37; Start 09/25/20 at 09:00 Famotidine (Pepcid) 20 mg DAILY PO Last administered on 09/25/20at 09:41; Start 09/23/20 at 09:00 Ferrous Sulfate (Feosol) 325 mg DAILY PO Last administered on 09/25/20at 09:39; Start 09/23/20 at 09:00 Furosemide (Lasix) 40 mg DAILY PO Last administered on 09/25/20at 09:39; Start 09/23/20 at 09:00 Acetaminophen/ Hydrocodone Bitart (Lortab 7.5/325) 1 tab PRN Q6HRS PRN PO MODERATE PAIN 4-6 Last administered on 09/25/20at 09:38; Start 09/23/20 at 02:00 Levothyroxine Sodium (Synthroid) 300 mcg DAILY06 PO ; Start 09/23/20 at 06:00; Status Cancel Losartan Potassium (Cozaar) 50 mg DAILY PO Last administered on 09/25/20 09:42; Start 09/23/20 at 09:00 Magnesium Oxide (Magnesium Oxide) 400 mg BIDAC PO Last administered on 09/25/20 09:42; Start 09/23/20 at 07:30 Metoprolol Succinate (Toprol Xl) 100 mg DAILY PO Last administered on 09/25/20at 09:41; Start 09/23/20 at 09:00 Budesonide (Pulmicort) 0.5 mg RTBID NEB Last administered on 09/25/20 12:13; Start 09/23/20 at 08:00 Citalopram Hydrobromide (CeleXA) 40 mg DAILY PO Last administered on 09/25/20at 09:38; Start 09/23/20 at 09:00 Gabapentin (Neurontin) 800 mg BID PO Last administered on 09/25/20at 09:38; Start 09/23/20 at 09:00 Non-Formulary Medication (Levothyroxine Sodium (Synthroid)) 1 tab DAILY PO ; Start 09/23/20 at 09:00; Status UNV Pramipexole Dihydrochloride (miraPEX) 1 mg HS PO Last administered on 09/24/20at 20:46; Start 09/23/20 at 21:00 Psyllium Hydrophilic Mucilloid (Metamucil Fiber Packet) 1 pkt QODAY PO Last administered on 09/23/20at 08:39; Start 09/23/20 at 09:00 Albuterol Sulfate (Ventolin Neb Soln) 2.5 mg RTQID NEB Last administered on 09/25/20at 12:13; Start 09/23/20 at 08:00 Levothyroxine Sodium (Synthroid) 350 mcg DAILY06 PO Last administered on 09/25/20at 05:47; Start 09/23/20 at 06:00 Ceftriaxone Sodium (Rocephin) 1 gm Q24H IVP Last administered on 09/24/20at 12:14; Start 09/23/20 at 13:00; Stop 09/25/20 at 11:20; Status DC Enoxaparin Sodium (Lovenox 60mg Syringe) 60 mg Q12HR SQ Last administered on 09/25/20at 09:42; Start 09/23/20 at 21:00 Lactobacillus Rhamnosus (Culturelle) 1 cap BID PO Last administered on 09/25/20at 09:39; Start 09/23/20 at 21:00 Doxycycline Hyclate (Vibra-Tab) 100 mg BID PO Last administered on 09/25/20at 09:49; Start 09/23/20 at 15:00; Stop 09/25/20 at 11:27; Status DC Nystatin (Nystop) 1 soham BID TP Last administered on 09/25/20at 09:37; Start 09/24/20 at 21:00 Phenol (Chloraseptic) 1 spray PRN Q2HR PRN PO SORE THROAT; Start 09/24/20 at 15:15 Ceftriaxone Sodium (Rocephin) 2 gm Q24H IVP ; Start 09/25/20 at 13:00 Daptomycin 320 mg/ Sodium Chloride 50 ml @ 100 mls/hr Q24H IV ; Start 09/25/20 at 13:00 Active Scripts Active Tylenol (Acetaminophen) 325 Mg Tablet 650 Mg PO PRN Q4HRS PRN 30 Days Ammonium Lactate 226 Gm Lotion 1 Soham TP PRN BID PRN 30 Days Magnesium Oxide 400 Mg Tablet 400 Mg PO BIDAC 30 Days Alprazolam 0.5 Mg Tablet 0.5 Mg PO PRN TID PRN 6 Days Voltaren (Diclofenac Sodium) 100 Gm Gel..gram. 1 Soham TP BID 30 Days Reported Mirapex (Pramipexole Di-Hcl) 1 Mg Tablet 1 Mg PO HS Gabapentin 800 Mg Tablet 800 Mg PO TID Ferrous Sulfate 325 Mg Tablet 1 Tab PO DAILY Furosemide 40 Mg Tablet 1 Tab PO DAILY Synthroid (Levothyroxine Sodium) 200 Mcg Tablet 1 Tab PO DAILY Synthroid (Levothyroxine Sodium) 150 Mcg Tablet 1 Tab PO DAILY Hydrocodone-Apap 7.5-325 (Hydrocodone Bit/Acetaminophen) 1 Tab Tablet 1 Tab PO PRN Q6HRS PRN Losartan Potassium 50 Mg Tablet 50 Mg PO DAILY Metamucil (Psyllium Husk) 0.52 Gm Capsule 1 Cap PO QODAY 30 Days Colace (Docusate Sodium) 100 Mg Capsule 1 Cap PO DAILY 15 Days Aspirin 81 Mg Tab.chew 81 Mg PO DAILY Famotidine 20 Mg Tablet 20 Mg PO BID Vitamin D2 (Ergocalciferol (Vitamin D2)) 50,000 Unit Capsule 50,000 Unit PO WEEKLY Symbicort 160-4.5 Mcg Inhaler (Budesonide/Formoterol Fumarate) 10.2 Gm Hfa.aer.ad 2 Puff IH BID Citalopram Hbr (Citalopram Hydrobromide) 40 Mg Tablet 40 Mg PO DAILY Metoprolol Succinate ( Xl ) (Metoprolol Succinate) 100 Mg Tab.er.24h 100 Mg PO DAILY Vitals/I & O Vital Sign - Last 24 Hours 09/24/20 09/24/20 09/24/20 09/24/20 13:15 15:00 16:04 19:13 Temp 100.9 99.3 100.9 99.3 Pulse 79 72 Resp 20 18 16 B/P (MAP) 99/42 (61) 91/39 (56) Pulse Ox 98 95 97 97 O2 Delivery Nasal Cannula Nasal Cannula Nasal Cannula O2 Flow Rate 2.0 2.0 2.0 09/24/20 09/24/20 09/24/20 09/25/20 20:00 20:30 23:50 03:34 Temp 98.4 97.7 98.4 97.7 Pulse 70 65 Resp 16 16 B/P (MAP) 87/56 (66) 99/48 (65) Pulse Ox 92 98 96 O2 Delivery Nasal Cannula Room Air Room Air O2 Flow Rate 2.0 09/25/20 09/25/20 09/25/20 09/25/20 06:22 09:38 09:41 09:42 Temp 97.4 97.4 Pulse 69 67 Resp 18 B/P (MAP) 109/46 (67) 112/49 112/49 Pulse Ox 94 O2 Delivery Room Air Room Air 09/25/20 09/25/20 10:38 12:13 Pulse Ox 94 O2 Delivery Room Air Nasal Cannula O2 Flow Rate 2.0 Intake and Output 09/24/20 09/24/20 09/25/20 15:00 23:00 07:00 Intake Total 640 ml 320 ml Output Total 1450 ml 700 ml 650 ml Balance -810 ml -700 ml -330 ml Justicifation of Admission Dx: Justifications for Admission: Justification of Admission Dx: N/A LINDSEY BRAR MD Sep 25, 2020 12:17
--- NOTE | 2020-09-25 12:54 | RAD ---
EXAM: Renal sonogram. HISTORY: Obstruction. TECHNIQUE: Sonographic imaging of the kidneys and bladder was performed. COMPARISON: 08/26/2020. FINDINGS: The exam is limited due to body habitus. The kidneys are normal in size. No solid or cystic renal lesion is seen. There is no hydronephrosis. There is a March catheter within the bladder. IMPRESSION: Sonographically unremarkable kidneys. Electronically signed by: Eli Edmond MD (09/25/2020 12:51 PM) [facility] [place]
[2020-09-25] MEDS ORDERED: DAPTOmycin (GENERIC) IVPB 320 MG in IV NORMAL SALINE 50ML 50 ML IV SCH (13:00)
[2020-09-25] MEDS ORDERED: cefTRIAXone IV Push 2 GM VIAL. IVP SCH (13:00)
--- NOTE | 2020-09-25 14:04 | PDOC ---
PULMONARY PROGRESS NOTES DATE: 09/25/20 TIME: 14:03 Subjective Patient is now on room air Denies any shortness of breath or cough No overnight events Vitals Vital Signs Date Time Temp Pulse Resp B/P (MAP) Pulse Ox O2 Delivery O2 Flow Rate FiO2 09/25/20 12:13 94 Nasal Cannula 2.0 09/25/20 11:30 96.7 66 16 99/49 (66) 96.7 ROS: No Nausea, No Chest Pain, No Abdominal Pain, No Increase Cough General: Alert, No acute distress Lungs: Clear Cardiovascular: S1 Abdomen: Soft, Non-tender, Other Extremities: No Edema, Other Labs Laboratory Tests Test 09/23/20 16:17 09/25/20 04:30 White Blood Count 5.8 x10^3/uL (4.0-11.0) 8.0 x10^3/uL (4.0-11.0) Red Blood Count 2.97 x10^6/uL (3.50-5.40) 3.00 x10^6/uL (3.50-5.40) Hemoglobin 9.3 g/dL (12.0-15.5) 9.3 g/dL (12.0-15.5) Hematocrit 28.3 % (36.0-47.0) 28.7 % (36.0-47.0) Mean Corpuscular Volume 95 fL (79-100) 96 fL (79-100) Mean Corpuscular Hemoglobin 31 pg (25-35) 31 pg (25-35) Mean Corpuscular Hemoglobin Concent 33 g/dL (31-37) 33 g/dL (31-37) Red Cell Distribution Width 15.0 % (11.5-14.5) 15.1 % (11.5-14.5) Platelet Count 168 x10^3/uL (140-400) 163 x10^3/uL (140-400) Neutrophils (%) (Auto) 72 % (31-73) 71 % (31-73) Lymphocytes (%) (Auto) 17 % (24-48) 19 % (24-48) Monocytes (%) (Auto) 7 % (0-9) 8 % (0-9) Eosinophils (%) (Auto) 4 % (0-3) 3 % (0-3) Basophils (%) (Auto) 1 % (0-3) 0 % (0-3) Neutrophils # (Auto) 4.1 x10^3/uL (1.8-7.7) 5.7 x10^3/uL (1.8-7.7) Lymphocytes # (Auto) 1.0 x10^3/uL (1.0-4.8) 1.5 x10^3/uL (1.0-4.8) Monocytes # (Auto) 0.4 x10^3/uL (0.0-1.1) 0.6 x10^3/uL (0.0-1.1) Eosinophils # (Auto) 0.2 x10^3/uL (0.0-0.7) 0.2 x10^3/uL (0.0-0.7) Basophils # (Auto) 0.0 x10^3/uL (0.0-0.2) 0.0 x10^3/uL (0.0-0.2) Sodium Level 140 mmol/L (136-145) 140 mmol/L (136-145) Potassium Level 4.0 mmol/L (3.5-5.1) 4.5 mmol/L (3.5-5.1) Chloride Level 107 mmol/L (98-107) 107 mmol/L (98-107) Carbon Dioxide Level 26 mmol/L (21-32) 25 mmol/L (21-32) Anion Gap 7 (6-14) 8 (6-14) Blood Urea Nitrogen 24 mg/dL (7-20) 27 mg/dL (7-20) Creatinine 1.1 mg/dL (0.6-1.0) 1.2 mg/dL (0.6-1.0) Estimated GFR (Cockcroft-Gault) 49.4 44.7 BUN/Creatinine Ratio 22 (6-20) Glucose Level 107 mg/dL (70-99) 99 mg/dL (70-99) Calcium Level 7.4 mg/dL (8.5-10.1) 8.2 mg/dL (8.5-10.1) Total Bilirubin 0.2 mg/dL (0.2-1.0) Aspartate Amino Transf (AST/SGOT) 12 U/L (15-37) Alanine Aminotransferase (ALT/SGPT) 10 U/L (14-59) Alkaline Phosphatase 107 U/L (46-116) Total Protein 6.1 g/dL (6.4-8.2) Albumin 2.1 g/dL (3.4-5.0) Albumin/Globulin Ratio 0.5 (1.0-1.7) Laboratory Tests Test 09/25/20 04:30 White Blood Count 8.0 x10^3/uL (4.0-11.0) Red Blood Count 3.00 x10^6/uL (3.50-5.40) Hemoglobin 9.3 g/dL (12.0-15.5) Hematocrit 28.7 % (36.0-47.0) Mean Corpuscular Volume 96 fL (79-100) Mean Corpuscular Hemoglobin 31 pg (25-35) Mean Corpuscular Hemoglobin Concent 33 g/dL (31-37) Red Cell Distribution Width 15.1 % (11.5-14.5) Platelet Count 163 x10^3/uL (140-400) Neutrophils (%) (Auto) 71 % (31-73) Lymphocytes (%) (Auto) 19 % (24-48) Monocytes (%) (Auto) 8 % (0-9) Eosinophils (%) (Auto) 3 % (0-3) Basophils (%) (Auto) 0 % (0-3) Neutrophils # (Auto) 5.7 x10^3/uL (1.8-7.7) Lymphocytes # (Auto) 1.5 x10^3/uL (1.0-4.8) Monocytes # (Auto) 0.6 x10^3/uL (0.0-1.1) Eosinophils # (Auto) 0.2 x10^3/uL (0.0-0.7) Basophils # (Auto) 0.0 x10^3/uL (0.0-0.2) Sodium Level 140 mmol/L (136-145) Potassium Level 4.5 mmol/L (3.5-5.1) Chloride Level 107 mmol/L (98-107) Carbon Dioxide Level 25 mmol/L (21-32) Anion Gap 8 (6-14) Blood Urea Nitrogen 27 mg/dL (7-20) Creatinine 1.2 mg/dL (0.6-1.0) Estimated GFR (Cockcroft-Gault) 44.7 Glucose Level 99 mg/dL (70-99) Calcium Level 8.2 mg/dL (8.5-10.1) Medications Active Scripts Medications Dose Route/Sig Max Daily Dose Days Date Category Mirapex (Pramipexole Di-Hcl) 1 Mg Tablet 1 Mg PO HS 09/23/20 Reported Gabapentin 800 Mg Tablet 800 Mg PO TID 09/23/20 Reported Ferrous Sulfate 325 Mg Tablet 1 Tab PO DAILY 09/23/20 Reported Furosemide 40 Mg Tablet 1 Tab PO DAILY 09/23/20 Reported Synthroid (Levothyroxine Sodium) 200 Mcg Tablet 1 Tab PO DAILY 09/23/20 Reported Synthroid (Levothyroxine Sodium) 150 Mcg Tablet 1 Tab PO DAILY 09/23/20 Reported Hydrocodone-Apap 7.5-325 (Hydrocodone Bit/Acetaminophen) 1 Tab Tablet 1 Tab PO PRN Q6HRS PRN 09/23/20 Reported Tylenol (Acetaminophen) 325 Mg Tablet 650 Mg PO PRN Q4HRS PRN 30 08/31/20 Rx Ammonium Lactate 226 Gm Lotion 1 Jhoana TP PRN BID PRN 30 08/31/20 Rx Magnesium Oxide 400 Mg Tablet 400 Mg PO BIDAC 30 08/31/20 Rx Alprazolam 0.5 Mg Tablet 0.5 Mg PO PRN TID PRN 6 08/31/20 Rx Losartan Potassium 50 Mg Tablet 50 Mg PO DAILY 08/10/19 Reported Voltaren (Diclofenac Sodium) 100 Gm Gel..gram. 1 Jhoana TP BID 30 08/10/19 Rx Metamucil (Psyllium Husk) 0.52 Gm Capsule 1 Cap PO QODAY 30 08/08/19 Reported Colace (Docusate Sodium) 100 Mg Capsule 1 Cap PO DAILY 15 08/08/19 Reported Aspirin 81 Mg Tab.chew 81 Mg PO DAILY 08/08/19 Reported Famotidine 20 Mg Tablet 20 Mg PO BID 08/08/19 Reported Vitamin D2 (Ergocalciferol (Vitamin D2)) 50,000 Unit Capsule 50,000 Unit PO WEEKLY 11/21/15 Reported Symbicort 160-4.5 Mcg Inhaler (Budesonide/Formoterol Fumarate) 10.2 Gm Hfa.aer.ad 2 Puff IH BID 10/03/13 Reported Citalopram Hbr (Citalopram Hydrobromide) 40 Mg Tablet 40 Mg PO DAILY 10/03/13 Reported Metoprolol Succinate ( Xl ) (Metoprolol Succinate) 100 Mg Tab.er.24h 100 Mg PO DAILY 10/03/13 Reported Comments CXR IMPRESSION: 1. Patchy wedge-shaped opacities in the medial left upper lung and right midlung, may represent multifocal infection/inflammation. Atypical edema may also result in this appearance. Impression . IMPRESSION: 1. Abnormal x-ray compatible with suspect atelectasis, maybe mild fluid congestion. 2. Progressive dyspnea, multifactorial, mostly related to weakness, obesity. 3. Possible bacterial pneumonia. 4. Recent COVID-19 exposure, COVID negative 5. Metabolic and toxic encephalopathy. 6. Recurrent urinary tract infection. Plan . PLAN: Continue supplemental oxygen as needed to keep sats above 92%, currently on room air stable from a pulmonary standpoint Follow ID recs for ABX: on Dapto and Rocephin Follow cultures Covid-19 negative Follow neurology recs Follow wound care recs PT/OT DVT/GI PPX D/W RN We will see on a as needed basis please call with any questions or concerns thank you MERISSA CHA MD Sep 25, 2020 14:04
[2020-09-25 14:05] LABS: BILIRUBIN,URINE NEGATIVE (NEG); CLARITY,URINE CLEAR; COLOR,URINE YELLOW; NITRITE,URINE NEGATIVE (NEG); PH,URINE 5.5 (<5.0-8.0); PROTEIN,URINE NEGATIVE (NEG-TRACE); UROBILINOGEN,URINE 0.2 mg/dL (0.2 mg/dL)
[2020-09-25 14:11] LABS: BACTERIA,URINE FEW /HPF (0-FEW); RBC,URINE OCC /HPF (0-2); WBC,URINE OCC /HPF (0-4)
[2020-09-25 15:00] VITALS: BP 111/54
[2020-09-25] MEDS: IV NORMAL SALINE 1000ML BAG 1,000 ML IV SCH (15:11)
[2020-09-25 19:00] VITALS: BP 95/50
[2020-09-25] MEDS: PRAMIPEXOLE 0.25 MG TABLET. PO SCH (19:57)
[2020-09-25 23:01] VITALS: BP 81/51
[2020-09-26] MEDS: HYDROcodone/APAP 7.5/325MG 1 TAB TABLET PO PRN ×2 (00:24→10:39)
[2020-09-26] MEDS: IV NORMAL SALINE 1000ML BAG 1,000 ML IV SCH (00:30)
[2020-09-26 03:39] VITALS: BP 116/51
[2020-09-26] MEDS: LEVOTHYROXINE 175 MCG TABLET PO SCH (05:47)
[2020-09-26 07:00] VITALS: BP 117/46
[2020-09-26] MEDS: ALBUTEROL SULFATE 2.5 MG/3 ML NEBU. NEB SCH ×3 (07:24→15:46)
[2020-09-26] MEDS: BUDESONIDE 0.5 MG/2 ML NEBU. NEB SCH (07:24)
[2020-09-26] MEDS: FAMOTIDINE 20 MG TABLET. PO SCH (08:30)
[2020-09-26] MEDS: GABAPENTIN 400 MG CAPSULE. PO SCH (08:30)
[2020-09-26] MEDS: FUROSEMIDE 40 MG TABLET. PO SCH (08:31)
[2020-09-26] MEDS: CITALOPRAM 20 MG TABLET. PO SCH (08:31)
[2020-09-26] MEDS: LOSARTAN POTASSIUM 50 MG TABLET. PO SCH (08:31)
[2020-09-26] MEDS: ASPIRIN CHEWABLE 81 MG TABLET. PO SCH (08:32)
[2020-09-26] MEDS: MAGNESIUM OXIDE 400 MG TABLET PO SCH (08:32)
[2020-09-26] MEDS: LACTOBACILLUS RHAMNOSUS GG 1 CAPSULE. PO SCH (08:32)
[2020-09-26] MEDS: METOPROLOL SUCC 24HR ER 100 MG TAB.ER.24H. PO SCH (08:32)
[2020-09-26] MEDS: FERROUS SULFATE 325 MG TABLET. PO SCH (08:32)
[2020-09-26] MEDS: NYSTATIN TOPICAL POWDER 15GM BOTTLE. TP SCH (08:33)
[2020-09-26] MEDS: DICLOFENAC SODIUM 1% TOPICAL GEL 100GM TUBE. TP SCH (08:34)
[2020-09-26] MEDS: DOCUSATE SODIUM 100 MG CAPSULE. PO SCH (09:00)
--- NOTE | 2020-09-26 09:48 | PDOC ---
Infectious Disease Note Subjective Subjective pt is feeling better ROS ROS no n/v/d/sob Vital Sign Vital Signs Vital Signs Date Time Temp Pulse Resp B/P (MAP) Pulse Ox O2 Delivery O2 Flow Rate FiO2 09/26/20 08:32 79 117/46 09/26/20 07:26 93 Room Air 09/26/20 07:00 98.9 22 98.9 09/26/20 03:39 2.0 Physical Exam PHYSICAL EXAM VITALS: Within normal limits and are stable. GENERAL: She is alert HEENT: Normal cephalic atraumatic, external auditory canals are patent. EYES: Extraocular muscles are intact, pupils are equally round and reactive to light and accommodation. MUSCULOSKELETAL: Well developed, well nourished, good range of motion. ENDOCRINE: No thyromegaly was palpated. LYMPHATICS: No cervical chain or axillary nodes were noted. HEMATOPOIETIC: No bruising. NECK: Supple, no JVD, no thyromegaly was noted. LUNGS: Clear to auscultation in all lung davidson without rhonchi or wheezing. HEART: RRR, S1, S2 present. Peripheral pulses intact, no obvious murmurs were noted. ABDOMEN: Soft, nontender. Positive bowel sounds no organomegaly, normal bowel sounds. EXTREMITIES: Without any cyanosis, clubbing, or edema. Pedal pulses intact, Homans sign is negative. rt leg superficial ulcer left heel ulcer SKIN: No ulcerations or rashes, good skin turgor, no jaundice. VASCULAR: Good capillary refill, neurovascular bundle appears to be intact. Labs Lab Laboratory Tests Test 09/25/20 13:30 Urine Collection Type Unknown Urine Color Yellow Urine Clarity Clear Urine pH 5.5 (<5.0-8.0) Urine Specific [place] 1.015 (1.000-1.030) Urine Protein Negative mg/dL (NEG-TRACE) Urine Glucose (UA) Negative mg/dL (NEG) Urine Ketones (Stick) Negative mg/dL (NEG) Urine Blood Negative (NEG) Urine Nitrite Negative (NEG) Urine Bilirubin Negative (NEG) Urine Urobilinogen Dipstick 0.2 mg/dL (0.2 mg/dL) Urine Leukocyte Esterase Negative (NEG) Urine RBC Occ /HPF (0-2) Urine WBC Occ /HPF (0-4) Urine Squamous Epithelial Cells Few /LPF Urine Bacteria Few /HPF (0-FEW) Urine Mucus Slight /LPF Objective Assessment 1. Encephalopathy, resolved, likely metabolic. 2. Left lower extremity cellulitis from chronic underlying wound, 3. , history of recurrent urinary tract infection with urinary incontinence, recently treated with Augmentin for Klebsiella urinary tract infection. 4. History of kidney stone. 5. Possible bacterial pneumonia. 6. Recent COVID-19 exposure. 7. Anxiety and depression. 8. History of allergies to AMOXICILLIN. Fever Plan Plan of Care Obtain renal ultrasound 1. change ceftriaxone. to vantin 2. d/c dapto 3. Follow up labs and cultures. 4. Continue supportive care. 5. Continue local wound care. Discussed with nursing staff. d/c felder off load leg elevation pt/ot JLUIS EVANGELISTA MD Sep 26, 2020 09:48
[2020-09-26 11:00] VITALS: BP 96/45
--- NOTE | 2020-09-26 11:30 | PDOC ---
PULMONARY PROGRESS NOTES DATE: 09/26/20 TIME: 11:30 Subjective Remains on room air Denies any shortness of breath or cough Wants to go home today No overnight events Vitals Vital Signs Date Time Temp Pulse Resp B/P (MAP) Pulse Ox O2 Delivery O2 Flow Rate FiO2 09/26/20 10:39 93 Room Air 09/26/20 08:32 79 117/46 09/26/20 07:00 98.9 22 98.9 09/26/20 03:39 2.0 ROS: No Nausea, No Chest Pain, No Abdominal Pain, No Increase Cough General: Alert, No acute distress Lungs: Clear Cardiovascular: S1 Abdomen: Soft, Non-tender, Other Extremities: No Edema, Other Labs Laboratory Tests Test 09/25/20 04:30 09/25/20 13:30 White Blood Count 8.0 x10^3/uL (4.0-11.0) Red Blood Count 3.00 x10^6/uL (3.50-5.40) Hemoglobin 9.3 g/dL (12.0-15.5) Hematocrit 28.7 % (36.0-47.0) Mean Corpuscular Volume 96 fL (79-100) Mean Corpuscular Hemoglobin 31 pg (25-35) Mean Corpuscular Hemoglobin Concent 33 g/dL (31-37) Red Cell Distribution Width 15.1 % (11.5-14.5) Platelet Count 163 x10^3/uL (140-400) Neutrophils (%) (Auto) 71 % (31-73) Lymphocytes (%) (Auto) 19 % (24-48) Monocytes (%) (Auto) 8 % (0-9) Eosinophils (%) (Auto) 3 % (0-3) Basophils (%) (Auto) 0 % (0-3) Neutrophils # (Auto) 5.7 x10^3/uL (1.8-7.7) Lymphocytes # (Auto) 1.5 x10^3/uL (1.0-4.8) Monocytes # (Auto) 0.6 x10^3/uL (0.0-1.1) Eosinophils # (Auto) 0.2 x10^3/uL (0.0-0.7) Basophils # (Auto) 0.0 x10^3/uL (0.0-0.2) Sodium Level 140 mmol/L (136-145) Potassium Level 4.5 mmol/L (3.5-5.1) Chloride Level 107 mmol/L (98-107) Carbon Dioxide Level 25 mmol/L (21-32) Anion Gap 8 (6-14) Blood Urea Nitrogen 27 mg/dL (7-20) Creatinine 1.2 mg/dL (0.6-1.0) Estimated GFR (Cockcroft-Gault) 44.7 Glucose Level 99 mg/dL (70-99) Calcium Level 8.2 mg/dL (8.5-10.1) Urine Collection Type Unknown Urine Color Yellow Urine Clarity Clear Urine pH 5.5 (<5.0-8.0) Urine Specific [place] 1.015 (1.000-1.030) Urine Protein Negative mg/dL (NEG-TRACE) Urine Glucose (UA) Negative mg/dL (NEG) Urine Ketones (Stick) Negative mg/dL (NEG) Urine Blood Negative (NEG) Urine Nitrite Negative (NEG) Urine Bilirubin Negative (NEG) Urine Urobilinogen Dipstick 0.2 mg/dL (0.2 mg/dL) Urine Leukocyte Esterase Negative (NEG) Urine RBC Occ /HPF (0-2) Urine WBC Occ /HPF (0-4) Urine Squamous Epithelial Cells Few /LPF Urine Bacteria Few /HPF (0-FEW) Urine Mucus Slight /LPF Laboratory Tests Test 09/25/20 13:30 Urine Collection Type Unknown Urine Color Yellow Urine Clarity Clear Urine pH 5.5 (<5.0-8.0) Urine Specific [place] 1.015 (1.000-1.030) Urine Protein Negative mg/dL (NEG-TRACE) Urine Glucose (UA) Negative mg/dL (NEG) Urine Ketones (Stick) Negative mg/dL (NEG) Urine Blood Negative (NEG) Urine Nitrite Negative (NEG) Urine Bilirubin Negative (NEG) Urine Urobilinogen Dipstick 0.2 mg/dL (0.2 mg/dL) Urine Leukocyte Esterase Negative (NEG) Urine RBC Occ /HPF (0-2) Urine WBC Occ /HPF (0-4) Urine Squamous Epithelial Cells Few /LPF Urine Bacteria Few /HPF (0-FEW) Urine Mucus Slight /LPF Medications Active Scripts Medications Dose Route/Sig Max Daily Dose Days Date Category Mirapex (Pramipexole Di-Hcl) 1 Mg Tablet 1 Mg PO HS 09/23/20 Reported Gabapentin 800 Mg Tablet 800 Mg PO TID 09/23/20 Reported Ferrous Sulfate 325 Mg Tablet 1 Tab PO DAILY 09/23/20 Reported Furosemide 40 Mg Tablet 1 Tab PO DAILY 09/23/20 Reported Synthroid (Levothyroxine Sodium) 200 Mcg Tablet 1 Tab PO DAILY 09/23/20 Reported Synthroid (Levothyroxine Sodium) 150 Mcg Tablet 1 Tab PO DAILY 09/23/20 Reported Hydrocodone-Apap 7.5-325 (Hydrocodone Bit/Acetaminophen) 1 Tab Tablet 1 Tab PO PRN Q6HRS PRN 09/23/20 Reported Tylenol (Acetaminophen) 325 Mg Tablet 650 Mg PO PRN Q4HRS PRN 30 08/31/20 Rx Ammonium Lactate 226 Gm Lotion 1 Jhoana TP PRN BID PRN 30 08/31/20 Rx Magnesium Oxide 400 Mg Tablet 400 Mg PO BIDAC 30 08/31/20 Rx Alprazolam 0.5 Mg Tablet 0.5 Mg PO PRN TID PRN 6 08/31/20 Rx Losartan Potassium 50 Mg Tablet 50 Mg PO DAILY 08/10/19 Reported Voltaren (Diclofenac Sodium) 100 Gm Gel..gram. 1 Jhoana TP BID 30 08/10/19 Rx Metamucil (Psyllium Husk) 0.52 Gm Capsule 1 Cap PO QODAY 30 08/08/19 Reported Colace (Docusate Sodium) 100 Mg Capsule 1 Cap PO DAILY 15 08/08/19 Reported Aspirin 81 Mg Tab.chew 81 Mg PO DAILY 08/08/19 Reported Famotidine 20 Mg Tablet 20 Mg PO BID 08/08/19 Reported Vitamin D2 (Ergocalciferol (Vitamin D2)) 50,000 Unit Capsule 50,000 Unit PO WEEKLY 11/21/15 Reported Symbicort 160-4.5 Mcg Inhaler (Budesonide/Formoterol Fumarate) 10.2 Gm Hfa.aer.ad 2 Puff IH BID 10/03/13 Reported Citalopram Hbr (Citalopram Hydrobromide) 40 Mg Tablet 40 Mg PO DAILY 10/03/13 Reported Metoprolol Succinate ( Xl ) (Metoprolol Succinate) 100 Mg Tab.er.24h 100 Mg PO DAILY 10/03/13 Reported Comments CXR IMPRESSION: 1. Patchy wedge-shaped opacities in the medial left upper lung and right midlung, may represent multifocal infection/inflammation. Atypical edema may also result in this appearance. Impression . IMPRESSION: 1. Abnormal x-ray compatible with suspect atelectasis, maybe mild fluid congestion. 2. Progressive dyspnea, multifactorial, mostly related to weakness, obesity. 3. Possible bacterial pneumonia. 4. Recent COVID-19 exposure, COVID negative 5. Metabolic and toxic encephalopathy. 6. Recurrent urinary tract infection. Plan . PLAN: Continue supplemental oxygen as needed to keep sats above 92%, currently on room air stable from a pulmonary standpoint Follow ID recs for ABX, transition to po for Discharge Follow cultures Covid-19 negative Follow neurology recs Follow wound care recs PT/OT DVT/GI PPX D/W RN We will see on a as needed basis please call with any questions or concerns thank you OK to Discharge from our standpoint MERISSA CHA MD Sep 26, 2020 11:30
[2020-09-26] MEDS ORDERED: ONDANSETRON ODT 4 MG TAB.RAPDIS. PO PRN (12:00)
--- NOTE | 2020-09-26 13:12 | PDOC ---
[facility] PROGRESS NOTE Date of Service DOS: DATE: 09/26/20 TIME: 13:10 Chief Complaint Chief Complaint ASSESSMENT AND PLAN: Urinary tract infection, acute metabolic encephalopathy,, improved Altered mental status, metabolic encephalopathy, related to urinary tract infection which has improved neg COVID-19, Patchy wedge-shaped opacities in the medial left upper lung and right midlung, may represent multifocal infection/inflammation. Atypical edema may also result in this appearance. azotemia, acute renal injury UTI History of kidney stone. Possible bacterial pneumonia. Recent home contacrt COVID-19 exposure. fall risk admitted. plan IV fluids, IV antibiotics, ROCEPHIN 1 GM Q 24 HRS home medications, DVT prophylaxis. Consult Infectious Disease. Obtain renal ultrasound Start daptomycin, DC doxy Follow up labs and cultures. c/o right hip pain, worse x 1 week , no trauma noted, will x ray Duration of Treatment Expected * 2 weeks Discharge Recommendations * Home with Assistance * Home with Home Health D/W RN No displaced fracture identified. If the patient is acutely unable to bear weight in the setting of trauma a MRI to rule out occult hip fracture is recommended. hip History of Present Illness History of Present Illness The patient is a pleasant 70-year-old female who presents to the ER with mental status change. While in the ER, she was noted to have a UTI. I discussed the case with ER physician. We are going to admit the patient, give her IV fluids, IV antibiotics and rule out COVID-19. 09/26/2020: Patient seen and evaluated bedside. She denies any pain or fever. She denies any new symptoms. Plan to discharge patient home with home health on oral antibiotics. Greater than 30 minutes was spent managing the discharge this patient. Vitals/I&O Vitals/I&O: Vital Signs Date Time Temp Pulse Resp B/P (MAP) Pulse Ox O2 Delivery O2 Flow Rate FiO2 09/26/20 11:39 94 Room Air 09/26/20 11:00 99.2 74 20 96/45 (62) 99.2 09/26/20 03:39 2.0 I & O 09/25/20 09/25/20 09/26/20 15:00 23:00 07:00 Intake Total 240 ml 300 ml 0 ml Output Total 75 ml 1450 ml 150 ml Balance 165 ml -1150 ml -150 ml Physical Exam Physical Exam: VITALS: Within normal limits and are stable. GENERAL: She is alert HEENT: Normal cephalic atraumatic, external auditory canals are patent. EYES: Extraocular muscles are intact, pupils are equally round and reactive to light and accommodation. MUSCULOSKELETAL: Well developed, well nourished, good range of motion. ENDOCRINE: No thyromegaly was palpated. LYMPHATICS: No cervical chain or axillary nodes were noted. HEMATOPOIETIC: No bruising. NECK: Supple, no JVD, no thyromegaly was noted. LUNGS: Clear to auscultation in all lung davidson without rhonchi or wheezing. HEART: RRR, S1, S2 present. Peripheral pulses intact, no obvious murmurs were noted. ABDOMEN: Soft, nontender. Positive bowel sounds no organomegaly, normal bowel sounds. EXTREMITIES: Without any cyanosis, clubbing, or edema. Pedal pulses intact, Homans sign is negative. rt leg superficial ulcer left heel ulcer SKIN: No ulcerations or rashes, good skin turgor, no jaundice. VASCULAR: Good capillary refill, neurovascular bundle appears to be intact. General: Alert, Oriented X3, Cooperative, No acute distress Heart: Regular rate, Normal S1 Lungs: Clear Abdomen: No tenderness Extremities: No cyanosis Labs Labs: Laboratory Tests Test 09/25/20 13:30 Urine Collection Type Unknown Urine Color Yellow Urine Clarity Clear Urine pH 5.5 (<5.0-8.0) Urine Specific [place] 1.015 (1.000-1.030) Urine Protein Negative mg/dL (NEG-TRACE) Urine Glucose (UA) Negative mg/dL (NEG) Urine Ketones (Stick) Negative mg/dL (NEG) Urine Blood Negative (NEG) Urine Nitrite Negative (NEG) Urine Bilirubin Negative (NEG) Urine Urobilinogen Dipstick 0.2 mg/dL (0.2 mg/dL) Urine Leukocyte Esterase Negative (NEG) Urine RBC Occ /HPF (0-2) Urine WBC Occ /HPF (0-4) Urine Squamous Epithelial Cells Few /LPF Urine Bacteria Few /HPF (0-FEW) Urine Mucus Slight /LPF Assessment and Plan Assessmemt and Plan Problems Medical Problems: (1) Altered mental status Status: Acute Comment Review of Relevant I have reviewed the following items mikael (where applicable) has been applied. Justifications for Admission Other Justification UTI, confusion and incontinence JUANA VENTURA MD Sep 26, 2020 13:12
[2020-09-26] MEDS ORDERED: CEFD300C PO (13:20)
--- NOTE | 2020-09-26 13:22 | SNU/HH DC ---
DISCHARGE WITH HOME HEALTH DISCHARGE INFORMATION: Discharge Date: Sep 26, 2020 Final Diagnosis: Problems Medical Problems: (1) Altered mental status Status: Acute Condition on Discharge: Stable CODE STATUS: Code Status: Full HOME HEALTH: Face to Face: I certify this patient is under my care and that I, or a nurse practitioner or physician's employment assistant working with me, had a face to face encounter that meets the physician face to face encounter requirements with this patient on 09/26/2020. RN For Eval/Treatment: Yes Physical Therapy For: Evalulation/Treatment Pt Meets Homebound Status: Poor coordination w/ amb., Limited distance walking POST DISCHARGE ORDERS: Activity Instructions for Disc: Activity as tolerated Weight Bearing Status after Di: As tolerated DIET AFTER DISCHARGE: Cardiac Wound/Incision Care: Change dressing, Other, see below CHECKS AFTER DISCHARGE: Checks after discharge: Check blood press - daily TREATMENT/EQUIPMENT ORDERS: Adaptive Equipment Issued: None CERTIFICATION STATEMENT: Certification Statement: Certification Statement: Based on the above finding, I certify that this patient is confined to the home and needs intermittent halfway care, physical therapy and/or speech therapy, or continues to need occupational therapy.~ This patient is under my care, and I have initiated the establishment of the plan of care.~ This patient will be followed by myself or a community physician who will periodically review the plan of care. Home Meds Active Scripts Acetaminophen (TYLENOL) 325 Mg Tablet, 650 MG PO PRN Q4HRS PRN for TEMP OVER 100.4F for 30 Days, #120 TAB Prov:EULALIA MILLS MD 08/31/20 Ammonium Lactate (Ammonium Lactate) 226 Gm Lotion, 1 LIZA TP PRN BID PRN for DRY SKIN / SCALING for 30 Days, #1 MISC Prov:EULALIA MILLS MD 08/31/20 Magnesium Oxide (Magnesium Oxide) 400 Mg Tablet, 400 MG PO BIDAC for Hypomagnesemia for 30 Days, #60 TAB Prov:EULALIA MILLS MD 08/31/20 Alprazolam (ALPRAZOLAM) 0.5 Mg Tablet, 0.5 MG PO PRN TID PRN for ANXIETY / AGITATION for 6 Days, #15 TAB Prov:EULALIA MILLS MD 08/31/20 Diclofenac Sodium (VOLTAREN) 100 Gm Gel..gram., 1 LIZA TP BID for Osteoarthritis for 30 Days, #60 EACH 2 Refills Prov:EULALIA MILLS MD 08/10/19 Reported Medications Pramipexole Di-Hcl (MIRAPEX) 1 Mg Tablet, 1 MG PO HS for restless leg, TAB 09/23/20 Gabapentin (GABAPENTIN) 800 Mg Tablet, 800 MG PO TID for NEUROGENIC PAIN, TAB 09/23/20 Ferrous Sulfate (FERROUS SULFATE) 325 Mg Tablet, 1 TAB PO DAILY for anemia, #30 TAB 3 Refills 09/23/20 Furosemide (FUROSEMIDE) 40 Mg Tablet, 1 TAB PO DAILY for diuretic, #30 TAB 5 Refills 09/23/20 Levothyroxine Sodium (SYNTHROID) 200 Mcg Tablet, 1 TAB PO DAILY for hypothyroid, #30 TAB 5 Refills 09/23/20 Levothyroxine Sodium (SYNTHROID) 150 Mcg Tablet, 1 TAB PO DAILY for hypothyroid, #30 TAB 5 Refills 09/23/20 Hydrocodone Bit/Acetaminophen (HYDROCODONE-APAP 7.5-325 ) 1 Tab Tablet, 1 TAB PO PRN Q6HRS PRN for PAIN, TAB 0 Refills 09/23/20 Losartan Potassium (LOSARTAN POTASSIUM) 50 Mg Tablet, 50 MG PO DAILY for HYPERTENSION, TAB 08/10/19 Psyllium Husk (METAMUCIL) 0.52 Gm Capsule, 1 CAP PO QODAY for contipation for 30 Days, #30 CAP 0 Refills 08/08/19 Docusate Sodium (COLACE) 100 Mg Capsule, 1 CAP PO DAILY for Constipation for 15 Days, #15 CAP 0 Refills 08/08/19 Aspirin (ASPIRIN) 81 Mg Tab.chew, 81 MG PO DAILY for Heart Health, TAB.CHEW 08/08/19 Famotidine (FAMOTIDINE) 20 Mg Tablet, 20 MG PO BID for GERD, TAB 08/08/19 Ergocalciferol (Vitamin D2) (VITAMIN D2) 50,000 Unit Capsule, 00173 UNIT PO WEEKLY 11/21/15 Budesonide/Formoterol Fumarate (SYMBICORT 160-4.5 MCG INHALER) 10.2 Gm Hfa.aer.ad, 2 PUFF IH BID 10/03/13 Citalopram Hydrobromide (CITALOPRAM HBR) 40 Mg Tablet, 40 MG PO DAILY 10/03/13 Metoprolol Succinate (METOPROLOL SUCCINATE ( XL )) 100 Mg Tab.er.24h, 100 MG PO DAILY 10/03/13 Discontinued Reported Medications Pramipexole Di-HCl (Pramipexole ER) 2.25 Mg Tab.er.24h, 5 MG PO HS for ..., TAB.SR 09/23/20 Calcium Carbonate (CALCIUM) 500 Mg Tab.chew, 200 MG PO DAILY for Bone Health, TAB.CHEW 08/08/19 Albuterol Sulfate (PROAIR HFA INHALER) 8.5 Gm Hfa.aer.ad, 4 PUFF IH PRN Q4-6HRS, #1 INHALER 11/21/15 [place]-3 Fatty Acids/Fish Oil (FISH OIL 1,000 MG CAPSULE) 1 Each Capsule, 1000 MG PO BID for HLD 10/03/13 JUANA VENTURA MD Sep 26, 2020 13:22
--- NOTE | 2020-09-26 13:29 | PDOC3 ---
Discharge Summary Visit Information Date of Admission: Sep 22, 2020 Date of Discharge: Sep 26, 2020 Final Diagnosis Problems Medical Problems: (1) Altered mental status Status: Acute Brief Hospital Course Allergies Allergies Coded Allergies Type Severity Reaction Last Updated Verified amoxicillin trihydrate Allergy Intermediate 03/20/18 Yes celecoxib Allergy Intermediate 10/15/14 Yes potassium clavulanate Allergy Intermediate 10/15/14 Yes I S O L A T I O N *CONTACT* Allergy Unknown 02/11/15 Yes Vital Signs Vital Signs Date Time Temp Pulse Resp B/P (MAP) Pulse Ox O2 Delivery O2 Flow Rate FiO2 09/26/20 11:39 94 Room Air 09/26/20 11:00 99.2 74 20 96/45 (62) 99.2 09/26/20 03:39 2.0 Lab Results Laboratory Tests Test 09/25/20 04:30 09/25/20 13:30 White Blood Count 8.0 x10^3/uL (4.0-11.0) Red Blood Count 3.00 x10^6/uL (3.50-5.40) Hemoglobin 9.3 g/dL (12.0-15.5) Hematocrit 28.7 % (36.0-47.0) Mean Corpuscular Volume 96 fL (79-100) Mean Corpuscular Hemoglobin 31 pg (25-35) Mean Corpuscular Hemoglobin Concent 33 g/dL (31-37) Red Cell Distribution Width 15.1 % (11.5-14.5) Platelet Count 163 x10^3/uL (140-400) Neutrophils (%) (Auto) 71 % (31-73) Lymphocytes (%) (Auto) 19 % (24-48) Monocytes (%) (Auto) 8 % (0-9) Eosinophils (%) (Auto) 3 % (0-3) Basophils (%) (Auto) 0 % (0-3) Neutrophils # (Auto) 5.7 x10^3/uL (1.8-7.7) Lymphocytes # (Auto) 1.5 x10^3/uL (1.0-4.8) Monocytes # (Auto) 0.6 x10^3/uL (0.0-1.1) Eosinophils # (Auto) 0.2 x10^3/uL (0.0-0.7) Basophils # (Auto) 0.0 x10^3/uL (0.0-0.2) Sodium Level 140 mmol/L (136-145) Potassium Level 4.5 mmol/L (3.5-5.1) Chloride Level 107 mmol/L (98-107) Carbon Dioxide Level 25 mmol/L (21-32) Anion Gap 8 (6-14) Blood Urea Nitrogen 27 mg/dL (7-20) Creatinine 1.2 mg/dL (0.6-1.0) Estimated GFR (Cockcroft-Gault) 44.7 Glucose Level 99 mg/dL (70-99) Calcium Level 8.2 mg/dL (8.5-10.1) Urine Collection Type Unknown Urine Color Yellow Urine Clarity Clear Urine pH 5.5 (<5.0-8.0) Urine Specific [place] 1.015 (1.000-1.030) Urine Protein Negative mg/dL (NEG-TRACE) Urine Glucose (UA) Negative mg/dL (NEG) Urine Ketones (Stick) Negative mg/dL (NEG) Urine Blood Negative (NEG) Urine Nitrite Negative (NEG) Urine Bilirubin Negative (NEG) Urine Urobilinogen Dipstick 0.2 mg/dL (0.2 mg/dL) Urine Leukocyte Esterase Negative (NEG) Urine RBC Occ /HPF (0-2) Urine WBC Occ /HPF (0-4) Urine Squamous Epithelial Cells Few /LPF Urine Bacteria Few /HPF (0-FEW) Urine Mucus Slight /LPF Laboratory Tests Test 09/25/20 13:30 Urine Collection Type Unknown Urine Color Yellow Urine Clarity Clear Urine pH 5.5 (<5.0-8.0) Urine Specific [place] 1.015 (1.000-1.030) Urine Protein Negative mg/dL (NEG-TRACE) Urine Glucose (UA) Negative mg/dL (NEG) Urine Ketones (Stick) Negative mg/dL (NEG) Urine Blood Negative (NEG) Urine Nitrite Negative (NEG) Urine Bilirubin Negative (NEG) Urine Urobilinogen Dipstick 0.2 mg/dL (0.2 mg/dL) Urine Leukocyte Esterase Negative (NEG) Urine RBC Occ /HPF (0-2) Urine WBC Occ /HPF (0-4) Urine Squamous Epithelial Cells Few /LPF Urine Bacteria Few /HPF (0-FEW) Urine Mucus Slight /LPF Brief Hospital Course Ms. Sanders is a 70 old female who presented with acute metabolic encephalopathy, history of recurrent UTIs, left lower extremity cellulitis with chronic underlying wound. Consultations were placed to ID, pulmonology, and neurology. She was treated with IV antibiotics and IV hydration. Her encephalopathy cleared. She was transitioned to oral cefdinir, and stable for discharge home with home health. Discharge Information Condition at Discharge: Improved Follow Up: Weeks Disposition/Orders: D/C to Home w/ HH Scheduled Aspirin (Aspirin) 81 Mg Tab.chew, 81 MG PO DAILY for Heart Health, (Reported) Entered as Reported by: NANETTE AGUIAR on 08/08/19 1321 Last Action: Continued on 09/23/20153 by LINDSEY JOAQUIN Budesonide/Formoterol Fumarate (Symbicort 160-4.5 Mcg Inhaler) 10.2 Gm Hfa.aer.ad, 2 PUFF IH BID, (Reported) Entered as Reported by: LORNA ZHOU on 10/03/13 0751 Last Action: Converted on 09/23/20153 by LINDSEY JOAQUIN Cefdinir (Cefdinir) 300 Mg Capsule, 300 MG PO BID for Cellulitis for 7 Days, #14 Prescribed by: JUANA VENTURA MD on 09/26/20 1320 Citalopram Hydrobromide (Citalopram Hbr) 40 Mg Tablet, 40 MG PO DAILY, (Reported) Entered as Reported by: LORNA ZHOU on 10/03/13 0751 Last Action: Converted on 09/23/20153 by LINDSEY JOAQUIN Diclofenac Sodium (Voltaren) 100 Gm Gel..gram., 1 LIZA TP BID for Osteoarthritis for 30 Days, #60 Ref 2 Prescribed by: EULALIA MILLS MD on 08/10/19 1357 Last Action: Continued on 09/23/20153 by LINDSEY JOAQUIN Docusate Sodium (Colace) 100 Mg Capsule, 1 CAP PO DAILY for Constipation for 15 Days, #15 Ref 0 (Reported) Entered as Reported by: NANETTE AGUIAR on 08/08/19 1321 Last Action: Continued on 09/23/20153 by LINDSEY JOAQUIN Ergocalciferol (Vitamin D2) (Vitamin D2) 50,000 Unit Capsule, 50,000 UNIT PO WEEKLY, (Reported) Entered as Reported by: ROE MEI RPH on 11/21/15 1101 Last Action: Continued on 09/23/20153 by LINDSEY JOAQUIN Famotidine (Famotidine) 20 Mg Tablet, 20 MG PO BID for GERD, (Reported) Entered as Reported by: NANETTE AGUIAR on 08/08/19 1321 Last Action: Continued on 09/23/20153 by LINDSEY JOAQUIN Ferrous Sulfate (Ferrous Sulfate) 325 Mg Tablet, 1 TAB PO DAILY for anemia, #30 Ref 3 (Reported) Entered as Reported by: LINDSEY JOAQUIN on 09/23/20150 Last Action: Continued on 09/23/20153 by LINDSEY JOAQUIN Furosemide (Furosemide) 40 Mg Tablet, 1 TAB PO DAILY for diuretic, #30 Ref 5 (Reported) Entered as Reported by: LINDSEY JOAQUIN on 09/23/20150 Last Action: Continued on 09/23/20153 by LINDSEY JOAQUIN Gabapentin (Gabapentin) 800 Mg Tablet, 800 MG PO TID for NEUROGENIC PAIN, (Reported) Entered as Reported by: LINDSEY JOAQUIN on 09/23/20150 Last Action: Converted on 09/23/20153 by LINDSEY JOAQUIN Levothyroxine Sodium (Synthroid) 150 Mcg Tablet, 1 TAB PO DAILY for hypothyroid, #30 Ref 5 (Reported) Entered as Reported by: LINDSEY JOAQUIN on 09/23/20150 Last Action: Continued on 09/23/20153 by LINDSEY JOAQUIN Levothyroxine Sodium (Synthroid) 200 Mcg Tablet, 1 TAB PO DAILY for hypothyroid, #30 Ref 5 (Reported) Entered as Reported by: LINDSEY JOAQUIN on 09/23/20150 Last Action: Converted on 09/23/20153 by LINDSEY JOAQUIN Losartan Potassium (Losartan Potassium) 50 Mg Tablet, 50 MG PO DAILY for HYPERTENSION, (Reported) Entered as Reported by: Antwon Butler on 08/10/19 1619 Last Action: Continued on 09/23/20153 by LINDSEY JOAQUIN Magnesium Oxide (Magnesium Oxide) 400 Mg Tablet, 400 MG PO BIDAC for Hyp omagnesemia for 30 Days, #60 Prescribed by: EULALIA MILLS MD on 08/31/20 9529 Last Action: Continued on 09/23/20153 by LINDSEY JOAQUIN Metoprolol Succinate (Metoprolol Succinate ( Xl )) 100 Mg Tab.er.24h, 100 MG PO DAILY, (Reported) Entered as Reported by: LORNA ZHOU on 10/03/13 0751 Last Action: Continued on 09/23/20153 by LINDSEY JOAQUIN Pramipexole Di-Hcl (Mirapex) 1 Mg Tablet, 1 MG PO HS for restless leg, (Reported) Entered as Reported by: LINDSEY JOAQUIN on 09/23/20303 Last Action: New Order on 09/23/20303 by LINDSEY JOAQUIN Psyllium Husk (Metamucil) 0.52 Gm Capsule, 1 CAP PO QODAY for contipation for 30 Days, #30 Ref 0 (Reported) Entered as Reported by: NANETTE AGUIAR on 08/08/19 1321 Last Action: Converted on 09/23/20153 by LINDSEY JOAQUIN Scheduled PRN Acetaminophen (Tylenol) 325 Mg Tablet, 650 MG PO PRN Q4HRS PRN for TEMP OVER 100.4F for 30 Days, #120 Prescribed by: EULALIA MILLS MD on 08/31/20 125 Last Action: Continued on 09/23/20153 by LINDSEY JOAQUIN Alprazolam (Alprazolam) 0.5 Mg Tablet, 0.5 MG PO PRN TID PRN for ANXIETY / AGITATION for 6 Days, #15 Prescribed by: EULALIA MILLS MD on 08/31/20 125 Last Action: Continued on 09/23/20153 by LINDSEY JOAQUIN Ammonium Lactate (Ammonium Lactate) 226 Gm Lotion, 1 LIZA TP PRN BID PRN for DRY SKIN / SCALING for 30 Days, #1 Prescribed by: EULALIA MILLS MD on 08/31/20 125 Last Action: Continued on 09/23/20153 by LINDSEY JOAQUIN Hydrocodone Bit/Acetaminophen (Hydrocodone-Apap 7.5-325 ) 1 Tab Tablet, 1 TAB PO PRN Q6HRS PRN for PAIN, Ref 0 (Reported) Entered as Reported by: LINDSEY JOAQUIN on 09/23/20150 Last Action: Continued on 09/23/20153 by LINDSEY JOAQUIN Discontinued Medications Albuterol Sulfate (Proair Hfa Inhaler) 8.5 Gm Hfa.aer.ad, 4 PUFF IH PRN Q4-6HRS, #1 (Reported) Entered as Reported by: ROE MEI RPH on 11/21/15 1243 Last Action: Discontinued on 09/23/20150 by LINDSEY JOAQUIN Calcium Carbonate (Calcium) 500 Mg Tab.chew, 200 MG PO DAILY for Bone Health, (Reported) Entered as Reported by: NANETTE AGUIAR on 08/08/19 1321 Last Action: Discontinued on 09/23/20150 by LINDSEY JOAQUIN West-3 Fatty Acids/Fish Oil (Fish Oil 1,000 Mg Capsule) 1 Each Capsule, 1,000 MG PO BID for HLD, (Reported) Entered as Reported by: LORNA ZHOU on 10/03/13 0751 Last Action: Discontinued on 09/23/20150 by LINDSEY JOAQUIN Pramipexole Di-HCl (Pramipexole ER) 2.25 Mg Tab.er.24h, 5 MG PO HS for ..., (R eported) Entered as Reported by: LINDSEY JOAQUIN on 09/23/20150 Last Action: Discontinued on 09/23/20 030 by LINDSEY JOAQUIN Justicifation of Admission Dx: Justifications for Admission: Justification of Admission Dx: N/A JUANA VENTURA MD Sep 26, 2020 13:29
--- NOTE | 2020-09-26 13:31 | NUR ---
SS following for discharge planning. SS reviewed pt chart and discussed with pt RN. Pt is from home with son and is currently on room air. PT/OT recommended home with home healthcare. COVID19 negative. Discharge order on the chart for home with home healthcare. SS met with pt and discussed. Pt reported that she was previously on services with [facility], ; fax [phone]. SS phoned and faxed discharge orders and referral as requested. Pt's RN notified.
--- NOTE | 2020-09-26 15:49 | NUR ---
Discharge Note: PILLO JEROME [address] Discharge instructions and discharge home medications reviewed with Patient and a copy given. All questions have been answered and understanding verbalized. The following instructions and handouts were given: medications, symptoms worsening, and cellulitis. Discontinued lines and drains: peripheral IV's discontinued. Patient discharged to home with home health via wheelchair accompanied by family.
--- NOTE | 2020-09-26 17:43 | NUR ---
wound care Pt discharged prior to arrival of WC team, will FU in wound clinic.
[2020-09-26] MEDS ORDERED: CEFDINIR 300 MG CAPSULE PO SCH (21:00)
[2020-10-27] MEDS ORDERED: SULF1TAB24 PO (10:55)
[2020-12-30] MEDS ORDERED: NYST15CR2 TP (20:56)
== END 2020-09-26 15:45 | disposition home health service (06) | DRG 689 ==
LOC: ER 10:43 → 4 NORTH 13:07 → 2 SOUTH 18:10
PROVIDERS: ADMIT Internal Medicine; ATTEND Internal Medicine
DX: N39.0 Urinary tract infection, site not specified (principal); G92 Toxic encephalopathy; N17.9 Acute kidney failure, unspecified; L03.116 Cellulitis of left lower limb; Z88.8 Allergy status to other drugs, medicaments and biological substances; Z79.899 Other long term (current) drug therapy; B18.2 Chronic viral hepatitis C; E03.9 Hypothyroidism, unspecified; E66.9 Obesity, unspecified; E78.00 Pure hypercholesterolemia, unspecified; E78.5 Hyperlipidemia, unspecified; F32.9 Major depressive disorder, single episode, unspecified; F41.9 Anxiety disorder, unspecified; G62.9 Polyneuropathy, unspecified; G89.29 Other chronic pain; I11.0 Hypertensive heart disease with heart failure; I50.9 Heart failure, unspecified; J45.909 Unspecified asthma, uncomplicated; K21.9 Gastro-esophageal reflux disease without esophagitis; Z83.3 Family history of diabetes mellitus; Z86.14 Personal history of Methicillin resistant Staphylococcus aureus infection; Z87.01 Personal history of pneumonia (recurrent); Z87.440 Personal history of urinary (tract) infections; Z87.442 Personal history of urinary calculi; Z88.0 Allergy status to penicillin; Z90.710 Acquired absence of both cervix and uterus; Z91.81 History of falling; Z90.49 Acquired absence of other specified parts of digestive tract; Z90.721 Acquired absence of ovaries, unilateral; Z20.822 Contact with and (suspected) exposure to COVID-19
CPT/HCPCS: 36415; 36600; 71045; 73502; 76770; 80048; 80053; 81001; 82805; 85025; 93005; 94640; 94760; 96374; J0696; J0878; J1650; J3370; J7030; J7040; U0003; 97116-GP; 97530-GP; 97535-GO; 99285-25; G0378; J7613; J7626

== ENCOUNTER 2020-10-26 04:28 | Inpatient (IN) | payer MEDICARE ==
[~2020-10-26] VITALS: Ht 157.5 cm; Wt 131.0 kg
[~2020-10-26 04:28] MED LIST changes: +CEFD300C PO; +FERR325T14 PO; +LEVO150T PO; +LEVO200T PO; +PRAM1TAB36 PO; +PRAM2.252 PO
--- NOTE | 2020-10-26 04:44 | ED.ADGEN ---
Past Medical History Past Medical History: Anxiety, Asthma, CHF, Depression, GERD, High Cholesterol, Hypertension, Hypothyroid, MRSA, Pneumonia, UTI, Other Additional Past Medical Histor: hep c,periph neurop,L FOOT WOUND Past Surgical History: , Hysterectomy, Oophorectomy, Tonsillectomy, Other Additional Past Surgical Histo: wrist,knee scope,rt carpqal tunnel,WEIGHT LOSS SURGERY Smoking Status: Never Smoker Alcohol Use: None Drug Use: None General Adult EDM: Chief Complaint: ALTERED MENTAL STATUS HPI: HPI: Patient is a 70 year old female coming from home via EMS for altered mental status hallucinations. Patient is often seen by EMS for lift assist and is normally alert and oriented with a GCS 15. Patient is confused further evaluati on. They were called by the son who lives at home states she was hallucinating and thought the president was coming out of her to be towards her. When they got there she was incontinent of urine her chair, noted the house is incredibly dirty with trash everywhere. They said the son reports she was recently treated for urinary tract infection. Patient is inconsistent with her recent history but says that she over the past few days had had episodes of diarrhea and subjective fevers. Denies any vomiting. Has baseline chronic cough. Patient is currently getting wound care for lower extremity wounds and says they have been healing well. Review of Systems: Review of Systems: All other systems within normal limits except for as noted in the HPI Current Medications: Current Medications Medications (Trade) Dose Ordered Sig/Doris Start Time Stop Time Status Last Admin Dose Admin Acetaminophen (Tylenol) 1,000 mg 1X ONCE 10/26/20 05:00 10/26/20 05:01 DC 10/26/20 05:02 1,000 MG Ceftriaxone Sodium (Rocephin) 1 gm 1X ONCE 10/26/20 06:30 10/26/20 06:31 DC 10/26/20 06:37 1 GM Fluconazole (Diflucan) 150 mg 1X ONCE 10/26/20 06:30 10/26/20 06:31 DC 10/26/20 06:36 150 MG Allergies: Allergies: Allergies Coded Allergies Type Severity Reaction Last Updated Verified amoxicillin trihydrate Allergy Intermediate 03/20/18 Yes celecoxib Allergy Intermediate 10/15/14 Yes potassium clavulanate Allergy Intermediate 10/15/14 Yes I S O L A T I O N *CONTACT* Allergy Unknown 02/11/15 Yes Physical Exam: PE: Constitutional: Well developed, well nourished, no acute distress, non-toxic appearance. [] HENT: Normocephalic, atraumatic, bilateral external ears normal, nose normal. [] Eyes: PERRLA, conjunctiva normal, no discharge. [] Neck: No rigidity, supple, no stridor. [] Cardiovascular: Regular rate and rhythm, brisk cap refill [] Lungs & Thorax: Non labored symmetric respirations, no tachypnea or respiratory distress [] Abdomen: Soft, nondistended, nontender palpation. Skin: Warm, lower extremity wounds on lower extremities with dressings that are clean dry and intact, rash in intermammary folds and inguinal folds. [] Back: Unremarkable Extremities: No deformities, range of motion grossly intact, bilateral lower extremity edema [] Neurologic: Alert and oriented X 3, no focal deficits noted, confused. [] Psychologic: Affect normal, judgement normal, mood normal. [] Current Patient Data: Labs: Laboratory Tests Test 10/26/20 04:50 10/26/20 05:40 Urine Collection Type U cath Urine Color Yellow Urine Clarity Clear Urine pH 5.0 (<5.0-8.0) Urine Specific [place] 1.020 (1.000-1.030) Urine Protein Negative mg/dL (NEG-TRACE) Urine Glucose (UA) Negative mg/dL (NEG) Urine Ketones (Stick) Negative mg/dL (NEG) Urine Blood Negative (NEG) Urine Nitrite Positive (NEG) Urine Bilirubin Negative (NEG) Urine Urobilinogen Dipstick 0.2 mg/dL (0.2 mg/dL) Urine Leukocyte Esterase Moderate (NEG) Urine RBC 0 /HPF (0-2) Urine WBC 20-40 /HPF (0-4) Urine Squamous Epithelial Cells Occ /LPF Urine Amorphous Sediment Present /HPF Urine Bacteria Many /HPF (0-FEW) Urine Mucus Slight /LPF White Blood Count 10.4 x10^3/uL (4.0-11.0) Red Blood Count 3.43 x10^6/uL (3.50-5.40) L Hemoglobin 10.5 g/dL (12.0-15.5) L Hematocrit 32.7 % (36.0-47.0) L Mean Corpuscular Volume 95 fL (79-100) Mean Corpuscular Hemoglobin 31 pg (25-35) Mean Corpuscular Hemoglobin Concent 32 g/dL (31-37) Red Cell Distribution Width 14.7 % (11.5-14.5) H Platelet Count 159 x10^3/uL (140-400) Neutrophils (%) (Auto) 77 % (31-73) H Lymphocytes (%) (Auto) 14 % (24-48) L Monocytes (%) (Auto) 6 % (0-9) Eosinophils (%) (Auto) 2 % (0-3) Basophils (%) (Auto) 1 % (0-3) Neutrophils # (Auto) 8.1 x10^3/uL (1.8-7.7) H Lymphocytes # (Auto) 1.5 x10^3/uL (1.0-4.8) Monocytes # (Auto) 0.6 x10^3/uL (0.0-1.1) Eosinophils # (Auto) 0.2 x10^3/uL (0.0-0.7) Basophils # (Auto) 0.1 x10^3/uL (0.0-0.2) Sodium Level 138 mmol/L (136-145) Potassium Level 5.4 mmol/L (3.5-5.1) H Chloride Level 105 mmol/L (98-107) Carbon Dioxide Level 25 mmol/L (21-32) Anion Gap 8 (6-14) Blood Urea Nitrogen 41 mg/dL (7-20) H Creatinine 1.8 mg/dL (0.6-1.0) H Estimated GFR (Cockcroft-Gault) 28.0 BUN/Creatinine Ratio 23 (6-20) H Glucose Level 95 mg/dL (70-99) Lactic Acid Level 1.1 mmol/L (0.4-2.0) Calcium Level 7.9 mg/dL (8.5-10.1) L Total Bilirubin 0.6 mg/dL (0.2-1.0) Aspartate Amino Transferase (AST) 19 U/L (15-37) Alanine Aminotransferase (ALT) 18 U/L (14-59) Alkaline Phosphatase 109 U/L (46-116) Troponin I Quantitative 0.022 ng/mL (0.000-0.055) OI-Azy-U-Type Natriuretic Peptide 1737 pg/mL (0-124) H Total Protein 7.0 g/dL (6.4-8.2) Albumin 2.6 g/dL (3.4-5.0) L Albumin/Globulin Ratio 0.6 (1.0-1.7) L Laboratory Tests 10/26/20 05:40 Laboratory Tests 10/26/20 05:40 Vital Signs: Vital Signs Date Time Temp Pulse Resp B/P (MAP) Pulse Ox O2 Delivery O2 Flow Rate FiO2 10/26/20 06:46 99.3 69 33 93 99.3 10/26/20 04:30 116/52 (73) High Flow Nasal Cannula 2.0 EKG: EKG: Sinus rhythm, normal axis, no ST elevation depression. Heart rate 60 bpm low voltage in inferior leads. No ectopy, normal intervals [] Heart Score: Risk Factors: Risk Factors: DM, Current or recent (<one month) smoker, HTN, HLP, family history of CAD, obesity. Risk Scores: Score 0 - 3: 2.5% MACE over next 6 weeks - Discharge Home Score 4 - 6: 20.3% MACE over next 6 weeks - Admit for Clinical Observation Score 7 - 10: 72.7% MACE over next 6 weeks - Early Invasive Strategies Radiology/Procedures: Radiology/Procedures: [] Course & Med Decision Making: Course & Med Decision Making Given ceftriaxone and fluconazole for infections. Care transferred to Dr. Baer at shift change. Pending blood work and chest x-ray read [] Carmenza Disclaimer: Carmenza Disclaimer: This electronic medical record was generated, in whole or in part, using a voice recognition dictation system. Departure Departure Impression: Primary Impression: UTI (urinary tract infection) Additional Impression: Confusion Disposition: 09 ADMITTED INPT THIS HOSP Condition: STABLE Referrals: Aggie VILLA MD (PCP) Problem Qualifiers GENO BARRIOS MD Oct 26, 2020 04:44 DIONY BAER MD Oct 26, 2020 08:51
[2020-10-26 04:57] LABS: BILIRUBIN,URINE NEGATIVE (NEG); CLARITY,URINE CLEAR; COLOR,URINE YELLOW; NITRITE,URINE POSITIVE (NEG); PROTEIN,URINE NEGATIVE (NEG-TRACE); UROBILINOGEN,URINE 0.2 mg/dL (0.2 mg/dL)
[2020-10-26] MEDS ORDERED: ACETAMINOPHEN 500 MG TABLET PO ONE (05:00)
[2020-10-26 05:03] LABS: BACTERIA,URINE MANY /HPF (0-FEW); RBC,URINE 0 /HPF (0-2); WBC,URINE 20-40 /HPF (0-4)
[2020-10-26 05:04] LABS: AMORPHOUS SEDIMENT,UR PRESENT /HPF
[2020-10-26 06:00] LABS: BASO # 0.1 x10^3/uL (0.0-0.2); BASO % 1 % (0-3); EOS # 0.2 x10^3/uL (0.0-0.7); EOS % 2 % (0-3); HEMATOCRIT 32.7 % (36.0-47.0); HEMOGLOBIN 10.5 g/dL (12.0-15.5); LYMPH # 1.5 x10^3/uL (1.0-4.8); LYMPH % 14 % (24-48); MEAN CORPUSCULAR HEMOGLOBIN 31 pg (25-35); MEAN CORPUSCULAR HGB CONC 32 g/dL (31-37); MEAN CORPUSCULAR VOLUME 95 fL (79-100); MONO # 0.6 x10^3/uL (0.0-1.1); MONO % 6 % (0-9); NEUT # 8.1 x10^3/uL (1.8-7.7); NEUT % 77 % (31-73); PLATELET COUNT 159 x10^3/uL (140-400); RED BLOOD COUNT 3.43 x10^6/uL (3.50-5.40); RED CELL DISTRIBUTION WIDTH 14.7 % (11.5-14.5); WHITE BLOOD COUNT 10.4 x10^3/uL (4.0-11.0)
[2020-10-26 06:02] LABS: CALCIUM 7.9 mg/dL (8.5-10.1); CREATININE 1.8 mg/dL (0.6-1.0); POTASSIUM 5.4 mmol/L (3.5-5.1)
[2020-10-26 06:07] LABS: ALBUMIN 2.6 g/dL (3.4-5.0); ALBUMIN/GLOBULIN RATIO 0.6 (1.0-1.7); TOTAL BILIRUBIN 0.6 mg/dL (0.2-1.0)
--- NOTE | 2020-10-26 06:09 | RAD ---
AP chest x-ray COMPARISON: Chest x-ray September 22, 2020. HISTORY: Fever. FINDINGS: Patient is rotated to the right on the image somewhat limiting assessment. In light of this the cardiomegaly and mild tortuosity of the thoracic aorta silhouette is grossly stable to the prior study. No pneumothorax, pulmonary opacities or pleural effusions. The bones are unremarkable. IMPRESSION: No acute process. Cardiomegaly stable. Electronically signed by: Polo Franco MD (10/26/2020 6:06 AM) [facility]
[2020-10-26] MEDS ORDERED: cefTRIAXone IV Push 1 GM VIAL. IVP ONE (06:30)
[2020-10-26] MEDS ORDERED: FLUCONAZOLE 100 MG TABLET. PO ONE (06:30)
[2020-10-26] MEDS ORDERED: IV NORMAL SALINE 1000ML BAG 1,000 ML IV ONE (07:30)
--- NOTE | 2020-10-26 07:57 | PDOC1 ---
History and Physical Date of Admission Date of Admission DATE: 10/26/20 TIME: 07:48 Identification/Chief Complaint Chief Complaint AMS Source Source: Caregiver, Chart review, Patient History of Present Illness History of Present Illness Patient is a 70-year-old female with past medical history of recurrent UTIs, who presents to the ER for evaluation of altered mental status. She lives with her son who reports patient began staring hallucinations yesterday. Upon arrival in the ER she was noted to be febrile 101.2 and was placed on 2 L nasal cannula due to some hypoxia. In the ED she was noted to have a urinary tract infection. Patient was admitted to our service with a similar presentation 1 month ago. Urinalysis shows positive nitrites, moderate leukocyte esterase, and many bacteria. After my evaluation she seems alert and oriented. She is supposed to take a daily Lasix but is noncompliant with his medications due to history of incontinence. Will admit patient for further medical management. Past Medical History Cardiovascular: CHF, HTN, Hyperlipidemia Pulmonary: Asthma, Pneumonia, Other CENTRAL NERVOUS SYSTEM: Periperal neuropathy GI: GERD Heme/Onc: Anemia NOS Hepatobiliary: Hep A/B/C Psych: Anxiety, Depression, Panic Musculoskeletal: low back pain Renal/: UTI, Other Endocrine: Hypothyroidism Past Surgical History Past Surgical History: , Hysterectomy, Other Family History Family History: Coronary Artery Disease, Diabetes, Hypertension Social History Smoke: No ALCOHOL: none Drugs: None Current Medications Current Medications Current Medications Acetaminophen (Tylenol) 1,000 mg 1X ONCE PO Last administered on 10/26/20at 05:02; Start 10/26/20 at 05:00; Stop 10/26/20 at 05:01; Status DC Ceftriaxone Sodium (Rocephin) 1 gm 1X ONCE IVP Last administered on 10/26/20at 06:37; Start 10/26/20 at 06:30; Stop 10/26/20 at 06:31; Status DC Fluconazole (Diflucan) 150 mg 1X ONCE PO Last administered on 10/26/20at 06:36; Start 10/26/20 at 06:30; Stop 10/26/20 at 06:31; Status DC Sodium Chloride 1,000 ml @ 1,000 mls/hr 1X ONCE IV Last administered on 10/26/20at 07:34; Start 10/26/20 at 07:30; Stop 10/26/20 at 08:29 Active Scripts Active Cefdinir 300 Mg Capsule 300 Mg PO BID 7 Days Tylenol (Acetaminophen) 325 Mg Tablet 650 Mg PO PRN Q4HRS PRN 30 Days Ammonium Lactate 226 Gm Lotion 1 Jhoana TP PRN BID PRN 30 Days Magnesium Oxide 400 Mg Tablet 400 Mg PO BIDAC 30 Days Alprazolam 0.5 Mg Tablet 0.5 Mg PO PRN TID PRN 6 Days Voltaren (Diclofenac Sodium) 100 Gm Gel..gram. 1 Jhoana TP BID 30 Days Reported Mirapex (Pramipexole Di-Hcl) 1 Mg Tablet 1 Mg PO HS Gabapentin 800 Mg Tablet 800 Mg PO TID Ferrous Sulfate 325 Mg Tablet 1 Tab PO DAILY Furosemide 40 Mg Tablet 1 Tab PO DAILY Synthroid (Levothyroxine Sodium) 200 Mcg Tablet 1 Tab PO DAILY Synthroid (Levothyroxine Sodium) 150 Mcg Tablet 1 Tab PO DAILY Hydrocodone-Apap 7.5-325 (Hydrocodone Bit/Acetaminophen) 1 Tab Tablet 1 Tab PO PRN Q6HRS PRN Losartan Potassium 50 Mg Tablet 50 Mg PO DAILY Metamucil (Psyllium Husk) 0.52 Gm Capsule 1 Cap PO QODAY 30 Days Colace (Docusate Sodium) 100 Mg Capsule 1 Cap PO DAILY 15 Days Aspirin 81 Mg Tab.chew 81 Mg PO DAILY Famotidine 20 Mg Tablet 20 Mg PO BID Vitamin D2 (Ergocalciferol (Vitamin D2)) 50,000 Unit Capsule 50,000 Unit PO WEEKLY Symbicort 160-4.5 Mcg Inhaler (Budesonide/Formoterol Fumarate) 10.2 Gm H fa.aer.ad 2 Puff IH BID Citalopram Hbr (Citalopram Hydrobromide) 40 Mg Tablet 40 Mg PO DAILY Metoprolol Succinate ( Xl ) (Metoprolol Succinate) 100 Mg Tab.er.24h 100 Mg PO DAILY Allergies Allergies: Coded Allergies: amoxicillin trihydrate (Verified Allergy, Intermediate, 03/20/18) HAS TOLERATED CTX celecoxib (Verified Allergy, Intermediate, 10/15/14) potassium clavulanate (Verified Allergy, Intermediate, 10/15/14) I S O L A T I O N *CONTACT* (Verified Allergy, Unknown, 02/11/15) mrsa + ROS Review of System GENERAL: No history of weight change, weakness or fevers. SKIN: No bruising, hair changes or rashes. EYES: No blurred, double or loss of vision. NOSE AND THROAT: No history of nosebleeds, hoarseness or sore throat. HEART: Denies chest pain, denies palpitations. LUNGS: Denies cough, hemoptysis, wheezing or shortness of breath. GASTROINTESTINAL: Denies nausea, vomiting, abdominal pain. GENITOURINARY: Denies dysuria, frequency, urgency, hematuria. NEUROLOGIC: Denies history of numbness, tingling, tremor or weakness. PSYCHIATRIC: Denies anxiety, denies depression. ENDOCRINE: No history of heat or cold intolerance, polyuria or polydipsia. EXTREMITIES: Denies muscle weakness, joint pain, pain on walking or stiffness. Physical Exam Physical Exam General: Alert, Oriented X3, Cooperative, No acute distress. Morbidly obese. HEENT: PERRLA, EOMI Lungs: Decreased breath sounds. Normal air movement Heart: RRR, no murmurs Cardiovascular: S1, S2 Abdomen: Normal bowel sounds, Soft, No tenderness Extremities: Bilateral lower extremities edematous with compression stockings. No clubbing, No cyanosis Skin: No rashes, No significant lesion Neuro: Normal speech, Normal tone, Sensation intact Psych/Mental Status: Mental status NL, Mood NL Vitals Vitals Vital Signs Date Time Temp Pulse Resp B/P (MAP) Pulse Ox O2 Delivery O2 Flow Rate FiO2 10/26/20 06:46 99.3 69 33 93 99.3 10/26/20 04:30 116/52 (73) High Flow Nasal Cannula 2.0 Labs Labs Laboratory Tests Test 10/26/20 04:50 10/26/20 05:40 Urine Collection Type U cath Urine Color Yellow Urine Clarity Clear Urine pH 5.0 (<5.0-8.0) Urine Specific George 1.020 (1.000-1.030) Urine Protein Negative mg/dL (NEG-TRACE) Urine Glucose (UA) Negative mg/dL (NEG) Urine Ketones (Stick) Negative mg/dL (NEG) Urine Blood Negative (NEG) Urine Nitrite Positive (NEG) Urine Bilirubin Negative (NEG) Urine Urobilinogen Dipstick 0.2 mg/dL (0.2 mg/dL) Urine Leukocyte Esterase Moderate (NEG) Urine RBC 0 /HPF (0-2) Urine WBC 20-40 /HPF (0-4) Urine Squamous Epithelial Cells Occ /LPF Urine Amorphous Sediment Present /HPF Urine Bacteria Many /HPF (0-FEW) Urine Mucus Slight /LPF White Blood Count 10.4 x10^3/uL (4.0-11.0) Red Blood Count 3.43 x10^6/uL (3.50-5.40) Hemoglobin 10.5 g/dL (12.0-15.5) Hematocrit 32.7 % (36.0-47.0) Mean Corpuscular Volume 95 fL (79-100) Mean Corpuscular Hemoglobin 31 pg (25-35) Mean Corpuscular Hemoglobin Concent 32 g/dL (31-37) Red Cell Distribution Width 14.7 % (11.5-14.5) Platelet Count 159 x10^3/uL (140-400) Neutrophils (%) (Auto) 77 % (31-73) Lymphocytes (%) (Auto) 14 % (24-48) Monocytes (%) (Auto) 6 % (0-9) Eosinophils (%) (Auto) 2 % (0-3) Basophils (%) (Auto) 1 % (0-3) Neutrophils # (Auto) 8.1 x10^3/uL (1.8-7.7) Lymphocytes # (Auto) 1.5 x10^3/uL (1.0-4.8) Monocytes # (Auto) 0.6 x10^3/uL (0.0-1.1) Eosinophils # (Auto) 0.2 x10^3/uL (0.0-0.7) Basophils # (Auto) 0.1 x10^3/uL (0.0-0.2) Sodium Level 138 mmol/L (136-145) Potassium Level 5.4 mmol/L (3.5-5.1) Chloride Level 105 mmol/L (98-107) Carbon Dioxide Level 25 mmol/L (21-32) Anion Gap 8 (6-14) Blood Urea Nitrogen 41 mg/dL (7-20) Creatinine 1.8 mg/dL (0.6-1.0) Estimated GFR (Cockcroft-Gault) 28.0 BUN/Creatinine Ratio 23 (6-20) Glucose Level 95 mg/dL (70-99) Lactic Acid Level 1.1 mmol/L (0.4-2.0) Calcium Level 7.9 mg/dL (8.5-10.1) Total Bilirubin 0.6 mg/dL (0.2-1.0) Aspartate Amino Transf (AST/SGOT) 19 U/L (15-37) Alanine Aminotransferase (ALT/SGPT) 18 U/L (14-59) Alkaline Phosphatase 109 U/L (46-116) Troponin I Quantitative 0.022 ng/mL (0.000-0.055) CG-Fza-S-Type Natriuretic Peptide 1737 pg/mL (0-124) Total Protein 7.0 g/dL (6.4-8.2) Albumin 2.6 g/dL (3.4-5.0) Albumin/Globulin Ratio 0.6 (1.0-1.7) Laboratory Tests Test 10/26/20 04:50 10/26/20 05:40 Urine Collection Type U cath Urine Color Yellow Urine Clarity Clear Urine pH 5.0 (<5.0-8.0) Urine Specific George 1.020 (1.000-1.030) Urine Protein Negative mg/dL (NEG-TRACE) Urine Glucose (UA) Negative mg/dL (NEG) Urine Ketones (Stick) Negative mg/dL (NEG) Urine Blood Negative (NEG) Urine Nitrite Positive (NEG) Urine Bilirubin Negative (NEG) Urine Urobilinogen Dipstick 0.2 mg/dL (0.2 mg/dL) Urine Leukocyte Esterase Moderate (NEG) Urine RBC 0 /HPF (0-2) Urine WBC 20-40 /HPF (0-4) Urine Squamous Epithelial Cells Occ /LPF Urine Amorphous Sediment Present /HPF Urine Bacteria Many /HPF (0-FEW) Urine Mucus Slight /LPF White Blood Count 10.4 x10^3/uL (4.0-11.0) Red Blood Count 3.43 x10^6/uL (3.50-5.40) Hemoglobin 10.5 g/dL (12.0-15.5) Hematocrit 32.7 % (36.0-47.0) Mean Corpuscular Volume 95 fL (79-100) Mean Corpuscular Hemoglobin 31 pg (25-35) Mean Corpuscular Hemoglobin Concent 32 g/dL (31-37) Red Cell Distribution Width 14.7 % (11.5-14.5) Platelet Count 159 x10^3/uL (140-400) Neutrophils (%) (Auto) 77 % (31-73) Lymphocytes (%) (Auto) 14 % (24-48) Monocytes (%) (Auto) 6 % (0-9) Eosinophils (%) (Auto) 2 % (0-3) Basophils (%) (Auto) 1 % (0-3) Neutrophils # (Auto) 8.1 x10^3/uL (1.8-7.7) Lymphocytes # (Auto) 1.5 x10^3/uL (1.0-4.8) Monocytes # (Auto) 0.6 x10^3/uL (0.0-1.1) Eosinophils # (Auto) 0.2 x10^3/uL (0.0-0.7) Basophils # (Auto) 0.1 x10^3/uL (0.0-0.2) Sodium Level 138 mmol/L (136-145) Potassium Level 5.4 mmol/L (3.5-5.1) Chloride Level 105 mmol/L (98-107) Carbon Dioxide Level 25 mmol/L (21-32) Anion Gap 8 (6-14) Blood Urea Nitrogen 41 mg/dL (7-20) Creatinine 1.8 mg/dL (0.6-1.0) Estimated GFR (Cockcroft-Gault) 28.0 BUN/Creatinine Ratio 23 (6-20) Glucose Level 95 mg/dL (70-99) Lactic Acid Level 1.1 mmol/L (0.4-2.0) Calcium Level 7.9 mg/dL (8.5-10.1) Total Bilirubin 0.6 mg/dL (0.2-1.0) Aspartate Amino Transf (AST/SGOT) 19 U/L (15-37) Alanine Aminotransferase (ALT/SGPT) 18 U/L (14-59) Alkaline Phosphatase 109 U/L (46-116) Troponin I Quantitative 0.022 ng/mL (0.000-0.055) UA-Dry-C-Type Natriuretic Peptide 1737 pg/mL (0-124) Total Protein 7.0 g/dL (6.4-8.2) Albumin 2.6 g/dL (3.4-5.0) Albumin/Globulin Ratio 0.6 (1.0-1.7) Images Images AP chest x-ray COMPARISON: Chest x-ray September 22, 2020. HISTORY: Fever. FINDINGS: Patient is rotated to the right on the image somewhat limiting assessment. In light of this the cardiomegaly and mild tortuosity of the thoracic aorta silhouette is grossly stable to the prior study. No pneumothorax, pulmonary opacities or pleural effusions. The bones are unremarkable. IMPRESSION: No acute process. Cardiomegaly stable. 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 We will continue with Rocephin 1 g daily. She was admitted little over 1 month ago with similar presentation. Urine cultures at that time showed sensitivity to Rocephin. With encephalopathy clears and electrolyte abnormalities corrected she may continue antibiotic treatment at home. Resume home medications FEN - Cardiac diet PPX - Lovenox FULL CODE Dispo - inpatient for above Justifications for Admission Other Justification UTI, confusion and incontinence JUANA VENTURA MD Oct 26, 2020 07:57
[2020-10-26] MEDS ORDERED: ALPRAZolam 0.5 MG TABLET PO PRN (08:00)
[2020-10-26] MEDS ORDERED: MAG HYDROX/ALUMINUM HYD/SIMETH 30 ML ORAL.SUSP PO PRN (08:00)
[2020-10-26] MEDS ORDERED: BISACODYL 10 MG SUPP.RECT. PR PRN (08:00)
[2020-10-26] MEDS ORDERED: CALCIUM CARBONATE 500 MG TAB.CHEW PO PRN (08:00)
[2020-10-26] MEDS ORDERED: ZOLPIDEM 5 MG TABLET. PO PRN (08:00)
[2020-10-26] MEDS ORDERED: ONDANSETRON PF 4 MG/2 ML VIAL. IVP PRN (08:00)
[2020-10-26] MEDS ORDERED: ACETAMINOPHEN 325 MG TABLET. PO PRN (08:00)
[2020-10-26] MEDS ORDERED: MAGNESIUM HYDROXIDE 2,400 MG/30 ML ORAL.SUSP. PO PRN (08:00)
[2020-10-26] MEDS ORDERED: LABETALOL 20 MG/4 ML DISP.SYRIN. IVP ONE (08:30)
[2020-10-26] MEDS ORDERED: PSYLLIUM HUSK (SUGAR FREE) 1 PKT PACKET PO SCH (09:00)
[2020-10-26 11:00] VITALS: BP 110/84
[2020-10-26] MEDS: DOCUSATE SODIUM 100 MG CAPSULE. PO SCH (12:34)
[2020-10-26] MEDS: ASPIRIN CHEWABLE 81 MG TABLET. PO SCH (12:34)
[2020-10-26] MEDS: METOPROLOL SUCC 24HR ER 100 MG TAB.ER.24H. PO SCH (12:34)
[2020-10-26] MEDS: FERROUS SULFATE 325 MG TABLET. PO SCH (12:34)
[2020-10-26] MEDS: MAGNESIUM OXIDE 400 MG TABLET PO SCH ×2 (12:34→16:30)
[2020-10-26] MEDS: DICLOFENAC SODIUM 1% TOPICAL GEL 100GM TUBE. TP SCH ×2 (12:35→20:48)
[2020-10-26] MEDS: FUROSEMIDE 40 MG TABLET. PO SCH (12:36)
[2020-10-26] MEDS: FAMOTIDINE 20 MG TABLET. PO SCH ×2 (12:36→20:49)
[2020-10-26] MEDS: GABAPENTIN 400 MG CAPSULE. PO SCH ×3 (12:40→20:49)
[2020-10-26] MEDS: HYDROcodone/APAP 7.5/325MG 1 TAB TABLET PO PRN (13:40)
[2020-10-26 15:00] VITALS: BP 92/41
--- NOTE | 2020-10-26 17:47 | EKG ---
[facility] [address] [place] [address] Test Date: 2020-10-26 Test Time: 04:56:31 Pat Name: PILLO JEROME Department: Room: 6 Gender: F Research Microbiologist: : [id number] Requested By: GENO BARRIOS Order Number: [id number] Reading MD: Pavel Astudillo Measurements Intervals Aurora Rate: 77 P: 53 MN: 198 QRS: 28 QRSD: 80 T: 31 QT: 364 QTc: 414 Interpretive Statements SINUS RHYTHM QRS(T) CONTOUR ABNORMALITY CONSIDER ANTEROLATERAL MYOCARDIAL DAMAGE POSSIBLY ABNORMAL ECG Electronically Signed On 11-01-2020 10:03:10 VOCATIONAL GUIDANCE COUNSELOR by Pavel Astudillo
[2020-10-26 19:00] VITALS: BP 96/31
[2020-10-26 20:04] VITALS: BP 96/31
[2020-10-26] MEDS: LACTOBACILLUS RHAMNOSUS GG 1 CAPSULE. PO SCH (20:48)
[2020-10-26] MEDS ORDERED: NYST15PO9 TP (20:58)
[2020-10-26] MEDS ORDERED: PRAMIPEXOLE 1 MG TABLET. PO SCH (21:00)
[2020-10-26] MEDS: NYSTATIN TOPICAL POWDER 15GM BOTTLE. TP SCH (21:34)
[2020-10-26 23:15] VITALS: BP 95/44
[2020-10-27 02:28] VITALS: BP 92/41
--- NOTE | 2020-10-27 06:40 | NUR ---
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 Discontinue contact precautions and begin Nozin protocol.
[2020-10-27 07:00] VITALS: BP 110/35
[2020-10-27 08:30] LABS: BASO % 0 % (0-3); EOS # 0.2 x10^3/uL (0.0-0.7); EOS % 3 % (0-3); HEMATOCRIT 30.7 % (36.0-47.0); HEMOGLOBIN 9.8 g/dL (12.0-15.5); LYMPH # 1.2 x10^3/uL (1.0-4.8); LYMPH % 16 % (24-48); MEAN CORPUSCULAR HEMOGLOBIN 30 pg (25-35); MEAN CORPUSCULAR HGB CONC 32 g/dL (31-37); MEAN CORPUSCULAR VOLUME 96 fL (79-100); MONO # 0.6 x10^3/uL (0.0-1.1); MONO % 8 % (0-9); NEUT # 5.4 x10^3/uL (1.8-7.7); NEUT % 73 % (31-73); PLATELET COUNT 143 x10^3/uL (140-400); RED BLOOD COUNT 3.21 x10^6/uL (3.50-5.40); RED CELL DISTRIBUTION WIDTH 14.9 % (11.5-14.5); WHITE BLOOD COUNT 7.5 x10^3/uL (4.0-11.0)
--- NOTE | 2020-10-27 08:35 | PDOC ---
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 We will continue with Rocephin 1 g daily. She was admitted little over 1 month ago with similar presentation. Urine cultu res at that time showed sensitivity to Rocephin. With encephalopathy clears and electrolyte abnormalities corrected she may cont inue antibiotic treatment at home. Resume home medications FEN - Cardiac diet PPX - Lovenox FULL CODE Dispo - inpatient for above History of Present Illness History of Present Illness Patient is a 70-year-old female with past medical history of recurrent UTIs, who presents to the ER for evaluation of altered mental status. She lives with her son who reports patient began staring hallucinations yesterday. Upon arrival in the ER she was noted to be febrile 101.2 and was placed on 2 L nasal cannula due to some hypoxia. In the ED she was noted to have a urinary tract infection. Patient was admitted to our service with a similar presentation 1 month ago. Urinalysis shows positive nitrites, moderate leukocyte esterase, and many bacteria. After my evaluation she seems alert and oriented. She is supposed to take a daily Lasix but is noncompliant with his medications due to history of incontinence. Will admit patient for further medical management. 10/27: Patient seen and evaluated. Afebrile, denies dysuria. She will receive her second dose of Rocephin today. Patient's son can pick her up after work roxana und 5:00 today. Will discharge patient on Bactrim twice daily to finish 3-day treatment. Greater than 30 minutes spent managing discharge this patient. Vitals/I&O Vitals/I&O: Vital Signs Date Time Temp Pulse Resp B/P (MAP) Pulse Ox O2 Delivery O2 Flow Rate FiO2 10/27/20 02:28 98.4 72 22 92/41 (58) 97 Nasal Cannula 2.0 98.4 I & O 10/26/20 10/26/20 10/27/20 15:00 23:00 07:00 Intake Total 360 ml Output Total 350 ml 700 ml Balance -350 ml -340 ml Physical Exam General: Alert, Oriented X3 Heart: Regular rate Lungs: Clear Abdomen: Normal bowel sounds, Soft Extremities: No cyanosis Skin: No rashes Assessment and Plan Assessmemt and Plan Problems Medical Problems: (1) Confusion Status: Acute Comment Review of Relevant I have reviewed the following items mikael (where applicable) has been applied. Medications: Current Medications Medications (Trade) Dose Ordered Sig/Doris Route PRN Reason Start Time Stop Time Status Last Admin Dose Admin Enoxaparin Sodium (Lovenox 60mg Syringe) 60 mg Q12HR SQ 10/26/20 09:00 10/26/20 20:48 Aspirin (Aspirin Chewable) 81 mg DAILY PO 10/26/20 09:00 10/26/20 12:34 Diclofenac Sodium (Voltaren) 1 soham BID TP 10/26/20 09:00 10/26/20 20:48 Docusate Sodium (Colace) 100 mg DAILY PO 10/26/20 09:00 10/26/20 12:34 Famotidine (Pepcid) 20 mg BID PO 10/26/20 09:00 10/26/20 20:49 Ferrous Sulfate (Feosol) 325 mg DAILY PO 10/26/20 09:00 10/26/20 12:34 Metoprolol Succinate (Toprol Xl) 100 mg DAILY PO 10/26/20 09:00 10/26/20 12:34 Pramipexole Dihydrochloride (miraPEX) 1 mg HS PO 10/26/20 21:00 10/26/20 20:49 Gabapentin (Neurontin) 800 mg TID PO 10/26/20 09:00 10/26/20 20:49 Psyllium Hydrophilic Mucilloid (Metamucil Fiber Packet) 1 pkt QODAY PO 10/26/20 09:00 10/26/20 12:36 Furosemide (Lasix) 40 mg DAILY PO 10/26/20 09:00 10/26/20 12:36 Lactobacillus Rhamnosus (Culturelle) 1 cap BID PO 10/26/20 21:00 10/26/20 20:48 Nystatin (Nystop) 1 soham BID TP 10/26/20 21:00 10/26/20 21:34 Justifications for Admission Other Justification UTI, AMS JUANA VENTURA MD Oct 27, 2020 08:35
[2020-10-27 08:49] LABS: CALCIUM 8.3 mg/dL (8.5-10.1); CREATININE 1.5 mg/dL (0.6-1.0); GFR 34.5; POTASSIUM 5.1 mmol/L (3.5-5.1)
[2020-10-27] MEDS: DICLOFENAC SODIUM 1% TOPICAL GEL 100GM TUBE. TP SCH (09:00)
[2020-10-27] MEDS: METOPROLOL SUCC 24HR ER 100 MG TAB.ER.24H. PO SCH (09:00)
[2020-10-27] MEDS: GABAPENTIN 400 MG CAPSULE. PO SCH (09:18)
[2020-10-27] MEDS: MAGNESIUM OXIDE 400 MG TABLET PO SCH (09:19)
[2020-10-27] MEDS: ASPIRIN CHEWABLE 81 MG TABLET. PO SCH (09:19)
[2020-10-27] MEDS: FAMOTIDINE 20 MG TABLET. PO SCH (09:19)
[2020-10-27] MEDS: FERROUS SULFATE 325 MG TABLET. PO SCH (09:20)
[2020-10-27] MEDS: LACTOBACILLUS RHAMNOSUS GG 1 CAPSULE. PO SCH (09:20)
[2020-10-27] MEDS: DOCUSATE SODIUM 100 MG CAPSULE. PO SCH (09:20)
[2020-10-27] MEDS: FUROSEMIDE 40 MG TABLET. PO SCH (09:20)
[2020-10-27] MEDS: NYSTATIN TOPICAL POWDER 15GM BOTTLE. TP SCH (09:22)
--- NOTE | 2020-10-27 09:38 | NUR ---
SW following. Discussed with RN, pt from home with son, room air, cardiac diet. Pt is current with Amminex. Pt has woundcare and IV abx. Dr. Arriola plans to discharge in the next day or two. JUAN CARLOS will continue to follow. Addendum: 10/27/20 at 1455 by LINNEA RANGEL Stacy Scruggs RN notified of discharge orders. [facility] No further SW needs.
[2020-10-27] MEDS: cefTRIAXone IV Push 1 GM VIAL. IVP SCH ×2 (10:25→11:43)
[2020-10-27] MEDS: HYDROcodone/APAP 7.5/325MG 1 TAB TABLET PO PRN (10:27)
[2020-10-27] MEDS ORDERED: SULF1TAB24 PO (10:55)
--- NOTE | 2020-10-27 10:58 | PDOC3 ---
Discharge Summary Visit Information Date of Admission: Oct 26, 2020 Date of Discharge: Oct 27, 2020 Final Diagnosis Problems Medical Problems: (1) Confusion Status: Acute Brief Hospital Course Allergies Allergies Coded Allergies Type Severity Reaction Last Updated Verified amoxicillin trihydrate Allergy Intermediate 03/20/18 Yes celecoxib Allergy Intermediate 10/15/14 Yes potassium clavulanate Allergy Intermediate 10/15/14 Yes I S O L A T I O N *CONTACT* Allergy Unknown 02/11/15 Yes Vital Signs Vital Signs Date Time Temp Pulse Resp B/P (MAP) Pulse Ox O2 Delivery O2 Flow Rate FiO2 10/27/20 10:27 22 90 Room Air 10/27/20 07:00 98.8 76 110/35 (60) 2.0 98.8 Lab Results Laboratory Tests Test 10/26/20 04:50 10/26/20 05:40 10/27/20 07:40 Urine Collection Type U cath Urine Color Yellow Urine Clarity Clear Urine pH 5.0 (<5.0-8.0) Urine Specific [place] 1.020 (1.000-1.030) Urine Protein Negative mg/dL (NEG-TRACE) Urine Glucose (UA) Negative mg/dL (NEG) Urine Ketones (Stick) Negative mg/dL (NEG) Urine Blood Negative (NEG) Urine Nitrite Positive (NEG) Urine Bilirubin Negative (NEG) Urine Urobilinogen Dipstick 0.2 mg/dL (0.2 mg/dL) Urine Leukocyte Esterase Moderate (NEG) Urine RBC 0 /HPF (0-2) Urine WBC 20-40 /HPF (0-4) Urine Squamous Epithelial Cells Occ /LPF Urine Amorphous Sediment Present /HPF Urine Bacteria Many /HPF (0-FEW) Urine Mucus Slight /LPF White Blood Count 10.4 x10^3/uL (4.0-11.0) 7.5 x10^3/uL (4.0-11.0) Red Blood Count 3.43 x10^6/uL (3.50-5.40) 3.21 x10^6/uL (3.50-5.40) Hemoglobin 10.5 g/dL (12.0-15.5) 9.8 g/dL (12.0-15.5) Hematocrit 32.7 % (36.0-47.0) 30.7 % (36.0-47.0) Mean Corpuscular Volume 95 fL (79-100) 96 fL (79-100) Mean Corpuscular Hemoglobin 31 pg (25-35) 30 pg (25-35) Mean Corpuscular Hemoglobin Concent 32 g/dL (31-37) 32 g/dL (31-37) Red Cell Distribution Width 14.7 % (11.5-14.5) 14.9 % (11.5-14.5) Platelet Count 159 x10^3/uL (140-400) 143 x10^3/uL (140-400) Neutrophils (%) (Auto) 77 % (31-73) 73 % (31-73) Lymphocytes (%) (Auto) 14 % (24-48) 16 % (24-48) Monocytes (%) (Auto) 6 % (0-9) 8 % (0-9) Eosinophils (%) (Auto) 2 % (0-3) 3 % (0-3) Basophils (%) (Auto) 1 % (0-3) 0 % (0-3) Neutrophils # (Auto) 8.1 x10^3/uL (1.8-7.7) 5.4 x10^3/uL (1.8-7.7) Lymphocytes # (Auto) 1.5 x10^3/uL (1.0-4.8) 1.2 x10^3/uL (1.0-4.8) Monocytes # (Auto) 0.6 x10^3/uL (0.0-1.1) 0.6 x10^3/uL (0.0-1.1) Eosinophils # (Auto) 0.2 x10^3/uL (0.0-0.7) 0.2 x10^3/uL (0.0-0.7) Basophils # (Auto) 0.1 x10^3/uL (0.0-0.2) 0.0 x10^3/uL (0.0-0.2) Sodium Level 138 mmol/L (136-145) 140 mmol/L (136-145) Potassium Level 5.4 mmol/L (3.5-5.1) 5.1 mmol/L (3.5-5.1) Chloride Level 105 mmol/L (98-107) 106 mmol/L (98-107) Carbon Dioxide Level 25 mmol/L (21-32) 26 mmol/L (21-32) Anion Gap 8 (6-14) 8 (6-14) Blood Urea Nitrogen 41 mg/dL (7-20) 41 mg/dL (7-20) Creatinine 1.8 mg/dL (0.6-1.0) 1.5 mg/dL (0.6-1.0) Estimated GFR (Cockcroft-Gault) 28.0 34.5 BUN/Creatinine Ratio 23 (6-20) Glucose Level 95 mg/dL (70-99) 98 mg/dL (70-99) Lactic Acid Level 1.1 mmol/L (0.4-2.0) Calcium Level 7.9 mg/dL (8.5-10.1) 8.3 mg/dL (8.5-10.1) Total Bilirubin 0.6 mg/dL (0.2-1.0) Aspartate Amino Transf (AST/SGOT) 19 U/L (15-37) Alanine Aminotransferase (ALT/SGPT) 18 U/L (14-59) Alkaline Phosphatase 109 U/L (46-116) Troponin I Quantitative 0.022 ng/mL (0.000-0.055) QJ-Ymk-L-Type Natriuretic Peptide 1737 pg/mL (0-124) Total Protein 7.0 g/dL (6.4-8.2) Albumin 2.6 g/dL (3.4-5.0) Albumin/Globulin Ratio 0.6 (1.0-1.7) Laboratory Tests Test 10/27/20 07:40 White Blood Count 7.5 x10^3/uL (4.0-11.0) Red Blood Count 3.21 x10^6/uL (3.50-5.40) Hemoglobin 9.8 g/dL (12.0-15.5) Hematocrit 30.7 % (36.0-47.0) Mean Corpuscular Volume 96 fL (79-100) Mean Corpuscular Hemoglobin 30 pg (25-35) Mean Corpuscular Hemoglobin Concent 32 g/dL (31-37) Red Cell Distribution Width 14.9 % (11.5-14.5) Platelet Count 143 x10^3/uL (140-400) Neutrophils (%) (Auto) 73 % (31-73) Lymphocytes (%) (Auto) 16 % (24-48) Monocytes (%) (Auto) 8 % (0-9) Eosinophils (%) (Auto) 3 % (0-3) Basophils (%) (Auto) 0 % (0-3) Neutrophils # (Auto) 5.4 x10^3/uL (1.8-7.7) Lymphocytes # (Auto) 1.2 x10^3/uL (1.0-4.8) Monocytes # (Auto) 0.6 x10^3/uL (0.0-1.1) Eosinophils # (Auto) 0.2 x10^3/uL (0.0-0.7) Basophils # (Auto) 0.0 x10^3/uL (0.0-0.2) Sodium Level 140 mmol/L (136-145) Potassium Level 5.1 mmol/L (3.5-5.1) Chloride Level 106 mmol/L (98-107) Carbon Dioxide Level 26 mmol/L (21-32) Anion Gap 8 (6-14) Blood Urea Nitrogen 41 mg/dL (7-20) Creatinine 1.5 mg/dL (0.6-1.0) Estimated GFR (Cockcroft-Gault) 34.5 Glucose Level 98 mg/dL (70-99) Calcium Level 8.3 mg/dL (8.5-10.1) Brief Hospital Course Ms. Sanders is a 70 old female with history of multiple UTIs, who presented with sepsis and metabolic encephalopathy secondary to UTI. She was treated with IV fluids and IV Rocephin. Her encephalopathy cleared up nicely and she was stable for discharge home with family care to complete 3-day treatment with oral antibiotics. Discharge Information Condition at Discharge: Improved Disposition/Orders: D/C to Home Scheduled Aspirin (Aspirin) 81 Mg Tab.chew, 81 MG PO DAILY for Heart Health, (Reported) Entered as Reported by: NANETTE AGUIAR on 08/08/19 1321 Last Action: Continued on 10/26/20 0804 by JUANA VENTURA MD Budesonide/Formoterol Fumarate (Symbicort 160-4.5 Mcg Inhaler) 10.2 Gm Hfa.aer.ad, 2 PUFF IH BID, (Reported) Entered as Reported by: LORNA ZHOU on 10/03/13 0751 Citalopram Hydrobromide (Citalopram Hbr) 40 Mg Tablet, 40 MG PO DAILY, (Reported) Entered as Reported by: LORNA ZHOU on 10/03/13 0751 Diclofenac Sodium (Voltaren) 100 Gm Gel..gram., 1 LIZA TP BID for Osteoarthritis for 30 Days, #60 Ref 2 Prescribed by: EULALIA MILLS MD on 08/10/19 1357 Last Action: Continued on 10/26/20803 by JUANA VENTURA MD Docusate Sodium (Colace) 100 Mg Capsule, 1 CAP PO DAILY for Constipation for 15 Days, #15 Ref 0 (Reported) Entered as Reported by: NANETTE AGUIAR on 08/08/19 132 Last Action: Continued on 10/26/20803 by JUANA VENTURA MD Ergocalciferol (Vitamin D2) (Vitamin D2) 50,000 Unit Capsule, 50,000 UNIT PO WEEKLY, (Reported) Entered as Reported by: ROE MEI [facility] on 11/21/15 1101 Famotidine (Famotidine) 20 Mg Tablet, 20 MG PO BID for GERD, (Reported) Entered as Reported by: NANETTE AGUIAR on 08/08/19 1321 Last Action: Continued on 10/26/20803 by JUANA VENTURA MD Ferrous Sulfate (Ferrous Sulfate) 325 Mg Tablet, 1 TAB PO DAILY for anemia, #30 Ref 3 (Reported) Entered as Reported by: LINDSEY JOAQUIN on 09/23/20150 Last Action: Continued on 10/26/20803 by JUANA VENTURA MD Furosemide (Furosemide) 40 Mg Tablet, 1 TAB PO DAILY for diuretic, #30 Ref 5 (Reported) Entered as Reported by: LINDSEY JOAQUIN on 09/23/20150 Last Action: Continued on 10/26/20814 by JUANA VENTURA MD Gabapentin (Gabapentin) 800 Mg Tablet, 800 MG PO TID for NEUROGENIC PAIN, (Reported) Entered as Reported by: LINDSEY JOAQUIN on 09/23/20150 Last Action: Converted on 10/26/20803 by JUANA VENTURA MD Levothyroxine Sodium (Synthroid) 150 Mcg Tablet, 1 TAB PO DAILY for hypothyroid, #30 Ref 5 (Reported) Entered as Reported by: LINDSEY JOAQUNI on 09/23/20150 Levothyroxine Sodium (Synthroid) 200 Mcg Tablet, 1 TAB PO DAILY for hypothyroid, #30 Ref 5 (Reported) Entered as Reported by: LINDSEY JOAQUIN on 09/23/20150 Losartan Potassium (Losartan Potassium) 50 Mg Tablet, 50 MG PO DAILY for HYPERTENSION, (Reported) Entered as Reported by: Antwon Butler on 08/10/19 1619 Last Action: HELD on 10/26/20803 by JUANA VENTURA MD Magnesium Oxide (Magnesium Oxide) 400 Mg Tablet, 400 MG PO BIDAC for Hypomagnesemia for 30 Days, #60 Prescribed by: EULALIA MILLS MD on 08/31/20 1259 Last Action: Continued on 10/26/20803 by JUANA VENTURA MD Metoprolol Succinate (Metoprolol Succinate ( Xl )) 100 Mg Tab.er.24h, 100 MG PO DAILY, (Reported) Entered as Reported by: LORNA ZHOU on 10/03/13 0751 Last Action: Continued on 10/26/20803 by JUANA VENTURA MD Nystatin (Nystatin) 15 Gm Powder, 1 LIZA TP BID for yeast for 7 Days, #1 Ref 0 (Reported) apply to affected area(s) Entered as Reported by: AIMEE SILVA on 10/26/202057 Last Action: Continued on 10/26/202058 by AIMEE SILVA Pramipexole Di-Hcl (Mirapex) 1 Mg Tablet, 1 MG PO HS for restless leg, (Reported) Entered as Reported by: LINDSEY JOAQUIN on 09/23/20 0304 Last Action: Continued on 10/26/20803 by JUANA VENTURA MD Psyllium Husk (Metamucil) 0.52 Gm Capsule, 1 CAP PO QODAY for contipation for 30 Days, #30 Ref 0 (Reported) Entered as Reported by: NANETTE AGUIAR on 08/08/19 1321 Last Action: Converted on 10/26/20803 by JUANA VENTURA MD Sulfamethoxazole/Trimethoprim (Bactrim Ds Tablet) 1 Each Tablet, 1 TAB PO BID for UTI for 1 Days, #2 Ref 0 Prescribed by: JUANA VENTURA MD on 10/27/20 1055 Scheduled PRN Acetaminophen (Tylenol) 325 Mg Tablet, 650 MG PO PRN Q4HRS PRN for TEMP OVER 100.4F for 30 Days, #120 Prescribed by: EULALIA MILLS MD on 08/31/20 1259 Alprazolam (Alprazolam) 0.5 Mg Tablet, 0.5 MG PO PRN TID PRN for ANXIETY / AGITATION for 6 Days, #15 Prescribed by: EULALIA MILLS MD on 08/31/20 1259 Last Action: Continued on 10/26/20803 by JUANA VENTURA MD Ammonium Lactate (Ammonium Lactate) 226 Gm Lotion, 1 LIZA TP PRN BID PRN for DRY SKIN / SCALING for 30 Days, #1 Prescribed by: EULALIA MILLS MD on 08/31/20 1259 Hydrocodone Bit/Acetaminophen (Hydrocodone-Apap 7.5-325 ) 1 Tab Tablet, 1 TAB PO PRN Q6HRS PRN for PAIN, Ref 0 (Reported) Entered as Reported by: LINDSEY JOAQUIN on 09/23/20 0151 Last Action: Continued on 10/26/20803 by JUANA VENTURA MD Discontinued Medications Cefdinir (Cefdinir) 300 Mg Capsule, 300 MG PO BID for Cellulitis for 7 Days, #14 Prescribed by: JUANA VENTURA MD on 09/26/20 1320 Last Action: HELD on 10/26/20803 by JUANA VENTURA MD Justicifation of Admission Dx: Justifications for Admission: Justification of Admission Dx: N/A JUANA VENTURA MD Oct 27, 2020 10:58
[2020-10-27 11:00] VITALS: BP 99/28
[2020-10-27] MEDS ORDERED: cefTRIAXone IM 1 GM VIAL IM ONE (11:45)
--- NOTE | 2020-10-27 12:25 | SNU/HH DC ---
DISCHARGE WITH HOME HEALTH DISCHARGE INFORMATION: Discharge Date: Oct 27, 2020 Final Diagnosis: Problems Medical Problems: (1) Confusion Status: Acute Condition on Discharge: Stable CODE STATUS: Code Status: Full HOME HEALTH: Face to Face: I certify this patient is under my care and that I, or a nurse practitioner or physician's programs assistant working with me, had a face to face encounter that meets the physician face to face encounter requirements with this patient on 10/27/2020. RN For Eval/Treatment: Yes Physical Therapy For: Evalulation/Treatment Occupational Therapy For: Evaluation/Treatment Pt Meets Homebound Status: Poor coordination w/ amb., Unsteady balance w/ amb,, Limited distance walking POST DISCHARGE ORDERS: Activity Instructions for Disc: Activity as tolerated Weight Bearing Status after Di: As tolerated DIET AFTER DISCHARGE: Cardiac Wound/Incision Care: Change dressing, Other, see below CHECKS AFTER DISCHARGE: Checks after discharge: Check blood press - daily, Check your Temp as needed TREATMENT/EQUIPMENT ORDERS: Adaptive Equipment Issued: None CERTIFICATION STATEMENT: Certification Statement: Certification Statement: Based on the above finding, I certify that this patient is confined to the home and needs intermittent retirement care, physical therapy and/or speech therapy, or continues to need occupational therapy.~ This patient is under my care, and I have initiated the establishment of the plan of care.~ This patient will be followed by myself or a community physician who will periodically review the plan of care. Home Meds Active Scripts Sulfamethoxazole/Trimethoprim (BACTRIM DS TABLET) 1 Each Tablet, 1 TAB PO BID for UTI for 1 Day, #2 TAB 0 Refills Prov:JUANA VENTURA MD 10/27/20 Acetaminophen (TYLENOL) 325 Mg Tablet, 650 MG PO PRN Q4HRS PRN for TEMP OVER 100.4F for 30 Days, #120 TAB Prov:EULALIA MILLS MD 08/31/20 Ammonium Lactate (Ammonium Lactate) 226 Gm Lotion, 1 LIZA TP PRN BID PRN for DRY SKIN / SCALING for 30 Days, #1 MISC Prov:EULALIA MILLS MD 08/31/20 Magnesium Oxide (Magnesium Oxide) 400 Mg Tablet, 400 MG PO BIDAC for Hypomagnesemia for 30 Days, #60 TAB Prov:EULALIA MILLS MD 08/31/20 Alprazolam (ALPRAZOLAM) 0.5 Mg Tablet, 0.5 MG PO PRN TID PRN for ANXIETY / AGITATION for 6 Days, #15 TAB Prov:EULALIA MILLS MD 08/31/20 Diclofenac Sodium (VOLTAREN) 100 Gm Gel..gram., 1 LIZA TP BID for Osteoarthritis for 30 Days, #60 EACH 2 Refills Prov:EULALIA MILLS MD 08/10/19 Reported Medications Nystatin (NYSTATIN) 15 Gm Powder, 1 LIZA TP BID for yeast for 7 Days, #1 BOTTLE 0 Refills apply to affected area(s) 10/26/20 Pramipexole Di-Hcl (MIRAPEX) 1 Mg Tablet, 1 MG PO HS for restless leg, TAB 09/23/20 Gabapentin (GABAPENTIN) 800 Mg Tablet, 800 MG PO TID for NEUROGENIC PAIN, TAB 09/23/20 Ferrous Sulfate (FERROUS SULFATE) 325 Mg Tablet, 1 TAB PO DAILY for anemia, #30 TAB 3 Refills 09/23/20 Furosemide (FUROSEMIDE) 40 Mg Tablet, 1 TAB PO DAILY for diuretic, #30 TAB 5 Refills 09/23/20 Levothyroxine Sodium (SYNTHROID) 200 Mcg Tablet, 1 TAB PO DAILY for hypothyroid, #30 TAB 5 Refills 09/23/20 Levothyroxine Sodium (SYNTHROID) 150 Mcg Tablet, 1 TAB PO DAILY for hypothyroid, #30 TAB 5 Refills 09/23/20 Hydrocodone Bit/Acetaminophen (HYDROCODONE-APAP 7.5-325 ) 1 Tab Tablet, 1 TAB PO PRN Q6HRS PRN for PAIN, TAB 0 Refills 09/23/20 Losartan Potassium (LOSARTAN POTASSIUM) 50 Mg Tablet, 50 MG PO DAILY for HYPERTENSION, TAB 08/10/19 Psyllium Husk (METAMUCIL) 0.52 Gm Capsule, 1 CAP PO QODAY for contipation for 30 Days, #30 CAP 0 Refills 08/08/19 Docusate Sodium (COLACE) 100 Mg Capsule, 1 CAP PO DAILY for Constipation for 15 Days, #15 CAP 0 Refills 08/08/19 Aspirin (ASPIRIN) 81 Mg Tab.chew, 81 MG PO DAILY for Heart Health, TAB.CHEW 08/08/19 Famotidine (FAMOTIDINE) 20 Mg Tablet, 20 MG PO BID for GERD, TAB 08/08/19 Ergocalciferol (Vitamin D2) (VITAMIN D2) 50,000 Unit Capsule, 97569 UNIT PO WEEKLY 11/21/15 Budesonide/Formoterol Fumarate (SYMBICORT 160-4.5 MCG INHALER) 10.2 Gm Hfa.aer.ad, 2 PUFF IH BID 10/03/13 Citalopram Hydrobromide (CITALOPRAM HBR) 40 Mg Tablet, 40 MG PO DAILY 10/03/13 Metoprolol Succinate (METOPROLOL SUCCINATE ( XL )) 100 Mg Tab.er.24h, 100 MG PO DAILY 10/03/13 Discontinued Scripts Cefdinir (CEFDINIR) 300 Mg Capsule, 300 MG PO BID for Cellulitis for 7 Days, #14 CAP Prov:JUANA VENTURA MD 09/26/20 JUANA VENTURA MD Oct 27, 2020 12:25
--- NOTE | 2020-10-27 14:06 | NUR ---
Wound Care Wound Type/Assessment: Consult to eval and treat wounds present on admission. Pt is known to the [facility] where wounds to her RLE, bilateral heels, and R great toe are managed on a weekly basis. Admission photos and measurements present on chart. R anterior lower leg wound bed covered in built up slough with pink, epithelialized wound edges. R heel has a small schwarz callus that is painful when pressure is applied, but is otherwise dry with no s/s of infection. L heel is a healing stage III pressure wound with a well granulated wound bed and pink, epithelialized edges, without callus. R distal great toe noted to show evidence of a healed intact blister, now with only a thin callus remaining. No other open areas were noted on the head to toe assessment, and pt reports she is discharging home today. Treatment Recommendations/Plan: RLE: Cleanse and pat dry. Cover slough with xeroform and foam dressing. Change every 3 days. L heel: Cleanse and pat dry. Cover with hydrofera blue and a foam dressing. Change every 3 days. Education provided: Discussed follow up in wound clinic for next saturday. Importance of managing pressure to allow wounds to heal as well as prevention of new wounds. Pt states understanding. Offloading surface/device: Pt sitting in recliner with pillows for positioning. Recommended Referrals/Tests: NA Discharge Recommendations for dressings: As above. Follow up in clinic next saturday
[2020-10-27 15:00] VITALS: BP 124/44
[2020-12-30] MEDS ORDERED: NYST15CR2 TP (20:56)
== END 2020-10-27 16:12 | disposition home health service (06) | DRG 871 ==
LOC: ER 04:28 → 5 NORTH 06:51
PROVIDERS: ADMIT Family Medicine; ATTEND Family Medicine
DX: A41.89 Other specified sepsis (principal); G93.41 Metabolic encephalopathy; E43 Unspecified severe protein-calorie malnutrition; N39.0 Urinary tract infection, site not specified; N17.9 Acute kidney failure, unspecified; Z68.43 Body mass index [BMI] 50.0-59.9, adult; E87.6 Hypokalemia; D64.9 Anemia, unspecified; E03.9 Hypothyroidism, unspecified; E78.00 Pure hypercholesterolemia, unspecified; E78.5 Hyperlipidemia, unspecified; F41.9 Anxiety disorder, unspecified; G25.81 Restless legs syndrome; I11.0 Hypertensive heart disease with heart failure; I50.9 Heart failure, unspecified; E83.42 Hypomagnesemia; J45.909 Unspecified asthma, uncomplicated; K21.9 Gastro-esophageal reflux disease without esophagitis; K59.00 Constipation, unspecified; M19.90 Unspecified osteoarthritis, unspecified site; R09.02 Hypoxemia; Z79.51 Long term (current) use of inhaled steroids; Z79.82 Long term (current) use of aspirin; Z79.890 Hormone replacement therapy; Z79.899 Other long term (current) drug therapy; Z82.49 Family history of ischemic heart disease and other diseases of the circulatory system; Z83.3 Family history of diabetes mellitus; Z87.440 Personal history of urinary (tract) infections; Z90.710 Acquired absence of both cervix and uterus; Z91.14 Patient's other noncompliance with medication regimen; F32.9 Major depressive disorder, single episode, unspecified; Z86.14 Personal history of Methicillin resistant Staphylococcus aureus infection; Z90.49 Acquired absence of other specified parts of digestive tract; Z88.8 Allergy status to other drugs, medicaments and biological substances
CPT/HCPCS: 36415; 71045; 80048; 80053; 81001; 83605; 83880; 84484; 85025; 87040; 87086; 93005; 96361; 96374; 99285; J0696; J1650; J7030; P9612; G0378

== ENCOUNTER 2020-11-07 19:37 | Observation (INO) | payer MEDICARE ==
[~2020-11-07] VITALS: Ht 157.5 cm; Wt 125.4 kg
[~2020-11-07 19:37] MED LIST changes: +CALC600T6 PO; -CALC600T60 PO; +NYST15PO9 TP; +OMEP40CA45 PO; -OMEP40CA7 PO; +SULF1TAB24 PO
[2020-11-07] MEDS ORDERED: KETOROLAC 60 MG/2 ML VIAL. IM ONE (20:00)
[2020-11-07 20:27] LABS: BASO # 0.1 x10^3/uL (0.0-0.2); BASO % 1 % (0-3); EOS # 0.2 x10^3/uL (0.0-0.7); EOS % 2 % (0-3); HEMATOCRIT 32.7 % (36.0-47.0); HEMOGLOBIN 10.7 g/dL (12.0-15.5); LYMPH # 1.4 x10^3/uL (1.0-4.8); LYMPH % 17 % (24-48); MEAN CORPUSCULAR HEMOGLOBIN 31 pg (25-35); MEAN CORPUSCULAR HGB CONC 33 g/dL (31-37); MEAN CORPUSCULAR VOLUME 94 fL (79-100); MONO # 0.4 x10^3/uL (0.0-1.1); MONO % 5 % (0-9); NEUT # 6.4 x10^3/uL (1.8-7.7); NEUT % 76 % (31-73); PLATELET COUNT 156 x10^3/uL (140-400); RED BLOOD COUNT 3.47 x10^6/uL (3.50-5.40); RED CELL DISTRIBUTION WIDTH 14.3 % (11.5-14.5); WHITE BLOOD COUNT 8.5 x10^3/uL (4.0-11.0)
[2020-11-07 20:35] LABS: CALCIUM 9.2 mg/dL (8.5-10.1); GFR 55.1; POTASSIUM 5.2 mmol/L (3.5-5.1)
[2020-11-07 20:54] LABS: BILIRUBIN,URINE NEGATIVE (NEG); CLARITY,URINE CLEAR; COLOR,URINE YELLOW; NITRITE,URINE NEGATIVE (NEG); PROTEIN,URINE NEGATIVE (NEG-TRACE); UROBILINOGEN,URINE 0.2 mg/dL (0.2 mg/dL)
[2020-11-07 21:00] LABS: BACTERIA,URINE 0 /HPF (0-FEW); RBC,URINE RARE /HPF (0-2)
--- NOTE | 2020-11-07 21:22 | PHYS DOC ---
Past Medical History Past Medical History: Anxiety, Asthma, CHF, Depression, GERD, High Cholesterol, Hypertension, Hypothyroid, MRSA, Pneumonia, UTI, Other Additional Past Medical Histor: hep c,periph neurop,L FOOT WOUND Past Surgical History: , Hysterectomy, Oophorectomy, Tonsillectomy, Other Additional Past Surgical Histo: wrist,knee scope,rt carpqal tunnel,WEIGHT LOSS SURGERY Smoking Status: Never Smoker Alcohol Use: None Drug Use: None Adult General Chief Complaint Chief Complaint: PAIN CONTROL HPI HPI Patient is a 70 year old female with extensive past medical history including diabetic neuropathy and type 2 diabetes now presents emergency department complaining of bilateral lower extremity pain. Patient states that since it was cold outside in her home she has been having worsening pain in the bilateral lower extremities. Patient also states her last 24 hours she developed increased urinary frequency. Denies any dysuria, pyuria, fever, chills, nausea, vomiting, dizziness or lightheadedness. Review of Systems Review of Systems Constitutional: Denies fever or chills [] Eyes: Denies change in visual acuity, redness, or eye pain [] HENT: Denies nasal congestion or sore throat [] Respiratory: Denies cough or shortness of breath [] Cardiovascular: No additional information not addressed in HPI [] GI: Denies abdominal pain, nausea, vomiting, bloody stools or diarrhea [] : Denies dysuria or hematuria [] Musculoskeletal: Denies back pain or joint pain [] Integument: Denies rash or skin lesions [] Neurologic: Denies headache, focal weakness or sensory changes [] Endocrine: Denies polyuria or polydipsia [] All other systems were reviewed and found to be within normal limits, except as documented in this note. Current Medications Current Medications Current Medications Medications (Trade) Dose Ordered Sig/Doris Start Time Stop Time Status Last Admin Dose Admin Ketorolac Tromethamine (Toradol Im) 30 mg 1X ONCE 11/07/20 20:00 11/07/20 20:01 DC 11/07/20 20:58 30 MG Allergies Allergies Allergies Coded Allergies Type Severity Reaction Last Updated Verified amoxicillin trihydrate Allergy Intermediate 03/20/18 Yes celecoxib Allergy Intermediate 10/15/14 Yes potassium clavulanate Allergy Intermediate 10/15/14 Yes I S O L A T I O N *CONTACT* Allergy Unknown 02/11/15 Yes Physical Exam Physical Exam Constitutional: Well developed, well nourished, no acute distress, non-toxic appearance. [] HENT: Normocephalic, atraumatic, bilateral external ears normal, oropharynx moist, no oral exudates, nose normal. [] Eyes: PERRLA, EOMI, conjunctiva normal, no discharge. [] Neck: Normal range of motion, no tenderness, supple, no stridor. [] Cardiovascular:Heart rate regular rhythm, no murmur [] Lungs & Thorax: Bilateral breath sounds clear to auscultation [] Abdomen: Bowel sounds normal, soft, no tenderness, no masses, no pulsatile masses. [] Skin: Warm, dry, no erythema, no rash. [] Back: No tenderness, no CVA tenderness. [] Extremities: moderate lower extremity edema and discoloration, pulses palpable, no clubbing, ROM intact, no edema. [] Neurologic: Alert and oriented X 3, normal motor function, normal sensory function, no focal deficits noted. [] Psychologic: Affect normal, judgement normal, mood normal. [] Current Patient Data Vital Signs Vital Signs Date Time Temp Pulse Resp B/P (MAP) Pulse Ox O2 Delivery O2 Flow Rate FiO2 11/07/20 19:37 98.1 93 20 145/70 (95) 94 Room Air 98.1 Lab Values Laboratory Tests Test 11/07/20 20:15 11/07/20 20:47 White Blood Count 8.5 x10^3/uL (4.0-11.0) Red Blood Count 3.47 x10^6/uL (3.50-5.40) L Hemoglobin 10.7 g/dL (12.0-15.5) L Hematocrit 32.7 % (36.0-47.0) L Mean Corpuscular Volume 94 fL (79-100) Mean Corpuscular Hemoglobin 31 pg (25-35) Mean Corpuscular Hemoglobin Concent 33 g/dL (31-37) Red Cell Distribution Width 14.3 % (11.5-14.5) Platelet Count 156 x10^3/uL (140-400) Neutrophils (%) (Auto) 76 % (31-73) H Lymphocytes (%) (Auto) 17 % (24-48) L Monocytes (%) (Auto) 5 % (0-9) Eosinophils (%) (Auto) 2 % (0-3) Basophils (%) (Auto) 1 % (0-3) Neutrophils # (Auto) 6.4 x10^3/uL (1.8-7.7) Lymphocytes # (Auto) 1.4 x10^3/uL (1.0-4.8) Monocytes # (Auto) 0.4 x10^3/uL (0.0-1.1) Eosinophils # (Auto) 0.2 x10^3/uL (0.0-0.7) Basophils # (Auto) 0.1 x10^3/uL (0.0-0.2) Sodium Level 143 mmol/L (136-145) Potassium Level 5.2 mmol/L (3.5-5.1) H Chloride Level 106 mmol/L (98-107) Carbon Dioxide Level 31 mmol/L (21-32) Anion Gap 6 (6-14) Blood Urea Nitrogen 24 mg/dL (7-20) H Creatinine 1.0 mg/dL (0.6-1.0) Estimated GFR (Cockcroft-Gault) 55.1 Glucose Level 104 mg/dL (70-99) H Calcium Level 9.2 mg/dL (8.5-10.1) Urine Collection Type Unknown Urine Color Yellow Urine Clarity Clear Urine pH 7.0 (<5.0-8.0) Urine Specific [place] 1.015 (1.000-1.030) Urine Protein Negative mg/dL (NEG-TRACE) Urine Glucose (UA) Negative mg/dL (NEG) Urine Ketones (Stick) Negative mg/dL (NEG) Urine Blood Negative (NEG) Urine Nitrite Negative (NEG) Urine Bilirubin Negative (NEG) Urine Urobilinogen Dipstick 0.2 mg/dL (0.2 mg/dL) Urine Leukocyte Esterase Negative (NEG) Urine RBC Rare /HPF (0-2) Urine WBC 1-4 /HPF (0-4) Urine Squamous Epithelial Cells Few /LPF Urine Bacteria 0 /HPF (0-FEW) Urine Mucus Slight /LPF Laboratory Tests 11/07/20 20:15 Laboratory Tests 11/07/20 20:15 EKG EKG [] Radiology/Procedures Radiology/Procedures [] Course & Med Decision Making Course & Med Decision Making Pertinent Labs and Imaging studies reviewed. (See chart for details) 70F presenting the emergency department nonspecific lower extremity peripheral neuropathy is worsening. Also the urinary complaints. Labs were obtained and unremarkable. I discussed the case with Dr. Alvarez who has agreed to observe overnight. Dragon Disclaimer Dragon Disclaimer This electronic medical record was generated, in whole or in part, using a voice recognition dictation system. Departure Departure Impression: Primary Impression: Peripheral neuropathy Disposition: ADMITTED INPT THIS HOSP Condition: GOOD Referrals: Aggie VILLA MD (PCP) ARIEL TAYLOR MD Nov 07, 2020 21:22
[2020-11-07] MEDS ORDERED: MORPHINE SULFATE 4 MG/ML VIAL. IV PRN (21:30)
[2020-11-07] MEDS ORDERED: ONDANSETRON PF 4 MG/2 ML VIAL. IV PRN (21:30)
--- NOTE | 2020-11-07 21:49 | PDOC1 ---
History and Physical Date of Admission Date of Admission DATE: 11/07/20 TIME: 21:43 History of Present Illness History of Present Illness Madhvai is a 70-year-old female with past medical history of recurrent UTIs, who presents to the ER for evaluation of urinary incontinence, freq. urinartion, hand and foot pain./ She lives with her son and has trouble caring for herself. she was urinating on herself freq. and cant keep herself clean and this is worse with the severe cold currently, -10 degrees F outside rrecent admit for urinary tract infection. Patient was admitted to our service with a similar presentation 1 month ago. She is supposed to take a daily Lasix but is noncompliant with his medications due to history of incontinence. she retired from here in 2016 Past Medical History Cardiovascular: CHF, HTN, Hyperlipidemia Pulmonary: Asthma, Pneumonia, Other CENTRAL NERVOUS SYSTEM: Periperal neuropathy GI: GERD Heme/Onc: Anemia NOS Hepatobiliary: Hep A/B/C Psych: Anxiety, Depression, Panic Musculoskeletal: low back pain Renal/: UTI, Other Endocrine: Hypothyroidism Past Surgical History Past Surgical History: , Hysterectomy, Other Family History Family History: Coronary Artery Disease, Diabetes, Hypertension Social History ALCOHOL: none Drugs: None Current Problem List Problem List Problems Medical Problems: (1) Peripheral neuropathy Status: Acute Current Medications Current Medications Current Medications Ketorolac Tromethamine (Toradol Im) 30 mg 1X ONCE IM Last administered on 11/07/20at 20:58; Start 11/07/20 at 20:00; Stop 11/07/20 at 20:01; Status DC Ondansetron HCl (Zofran) 4 mg PRN Q8HRS PRN IV NAUSEA/VOMITING 1ST CHOICE; Start 11/07/20 at 21:30; Stop 11/08/20 at 21:29 Morphine Sulfate (Morphine Sulfate) 4 mg PRN Q2HR PRN IV SEVERE PAIN 7-10; Start 11/07/20 at 21:30; Stop 11/08/20 at 21:29 Active Scripts Active Bactrim Ds Tablet (Sulfamethoxazole/Trimethoprim) 1 Each Tablet 1 Tab PO BID 1 Days Tylenol (Acetaminophen) 325 Mg Tablet 650 Mg PO PRN Q4HRS PRN 30 Days Ammonium Lactate 226 Gm Lotion 1 Jhoana TP PRN BID PRN 30 Days Magnesium Oxide 400 Mg Tablet 400 Mg PO BIDAC 30 Days Alprazolam 0.5 Mg Tablet 0.5 Mg PO PRN TID PRN 6 Days Voltaren (Diclofenac Sodium) 100 Gm Gel..gram. 1 Jhoana TP BID 30 Days Reported Nystatin 15 Gm Powder 1 Jhoana TP BID 7 Days apply to affected area(s) Mirapex (Pramipexole Di-Hcl) 1 Mg Tablet 1 Mg PO HS Gabapentin 800 Mg Tablet 800 Mg PO TID Ferrous Sulfate 325 Mg Tablet 1 Tab PO DAILY Furosemide 40 Mg Tablet 1 Tab PO DAILY Synthroid (Levothyroxine Sodium) 200 Mcg Tablet 1 Tab PO DAILY Synthroid (Levothyroxine Sodium) 150 Mcg Tablet 1 Tab PO DAILY Hydrocodone-Apap 7.5-325 (Hydrocodone Bit/Acetaminophen) 1 Tab Tablet 1 Tab PO PRN Q6HRS PRN Losartan Potassium 50 Mg Tablet 50 Mg PO DAILY Metamucil (Psyllium Husk) 0.52 Gm Capsule 1 Cap PO QODAY 30 Days Colace (Docusate Sodium) 100 Mg Capsule 1 Cap PO DAILY 15 Days Aspirin 81 Mg Tab.chew 81 Mg PO DAILY Famotidine 20 Mg Tablet 20 Mg PO BID Vitamin D2 (Ergocalciferol (Vitamin D2)) 50,000 Unit Capsule 50,000 Unit PO WEEKLY Symbicort 160-4.5 Mcg Inhaler (Budesonide/Formoterol Fumarate) 10.2 Gm Hfa.aer.ad 2 Puff IH BID Citalopram Hbr (Citalopram Hydrobromide) 40 Mg Tablet 40 Mg PO DAILY Metoprolol Succinate ( Xl ) (Metoprolol Succinate) 100 Mg Tab.er.24h 100 Mg PO DAILY Allergies Allergies: Coded Allergies: amoxicillin trihydrate (Verified Allergy, Intermediate, 03/20/18) HAS TOLERATED CTX celecoxib (Verified Allergy, Intermediate, 10/15/14) potassium clavulanate (Verified Allergy, Intermediate, 10/15/14) I S O L A T I O N *CONTACT* (Verified Allergy, Unknown, 02/11/15) mrsa + ROS General: YES: Chills, Fatigue PSYCHOLOGICAL ROS: No: Anxiety, Behavioral Disorder, Concentration difficultie, Decreased libido, Depression, Disorientation, Hallucinations, Hostility, Irritablity, Memory difficulties, Mood Swings, Obsessive thoughts, Physical abuse, Sexual abuse, Sleep disturbances, Suicidal ideation, Other Eyes: No Blurry vision, No Decreased vision, No Double vision, No Dry eyes, No Excessive tearing, No Eye Pain, No Itchy Eyes, No Loss of vision, No Photophobia, No Scotomata, No Uses contacts, No Uses glasses, No Other HEENT: No: Heacaches, Visual Changes, Hearing change, Nasal congestion, Nasal discharge, Oral lesions, Sinus pain, Sore Throat, Epistaxis, Sneezing, Snoring, Tinnitus, Vertigo, Vocal changes, Other Respiratory: No: Cough, Hemoptysis, Orthopnea, Pleuritic Pain, Shortness of breath, SOB with excertion, Sputum Changes, Stridor, Tachypnea, Wheezing, Other Cardiovascular: No Chest Pain, No Palpitations, No Orthopnea, No Paroxysmal Noc. Dyspnea, No Edema, No Lt Headedness, No Other Gastrointestinal: No Nausea, No Vomiting, No Abdominal Pain, No Diarrhea, No Constipation, No Melena, No Hematochezia, No Other Genitourinary: YES Dysuria, YES Frequency, YES Incontinence, YES Urgency; No Hematuria, No Retention, No Discharge, No Pain, No , No , No , No , No , No , No Musculoskeletal: No Gait Disturbance, No Joint Pain, No Joint Stiffness, No Joint Swelling, No Muscle Pain, No Muscular Weakness, No Pain In:, No Swelling In:, No Other Neurological: No Behavorial Changes, No Bowel/Bladder ControlChng, No Confusion, No Dizziness, No Gait Disturbance, No Headaches, No Impaired Coord/balance, No Memory Loss, No Numbness/Tingling, No Seizures, No Speech Problems, No Tremors, No Visual Changes, No Weakness, No Other Skin: No Dry Skin, No Eczema, No Hair Changes, No Lumps, No Mole Changes, No Mottling, No Nail Changes, No Pruritus, No Rash, No Skin Lesion Changes, No Other, No Acne Physical Exam General: Alert, Oriented X3, No acute distress HEENT: Atraumatic, PERRLA, Mucous membr. moist/pink Heart: no gallops, no murmurs Extremities: No edema Skin: No significant lesion Neuro: Normal gait, Normal speech, Sensation intact, Cranial nerves 3-12 NL Psych/Mental Status: Mental status NL Vitals Vitals Vital Signs Date Time Temp Pulse Resp B/P (MAP) Pulse Ox O2 Delivery O2 Flow Rate FiO2 2/15/21 19:37 98.1 93 20 145/70 (95) 94 Room Air 98.1 Labs Labs Laboratory Tests Test 11/07/20 20:15 11/07/20 20:47 White Blood Count 8.5 x10^3/uL (4.0-11.0) Red Blood Count 3.47 x10^6/uL (3.50-5.40) Hemoglobin 10.7 g/dL (12.0-15.5) Hematocrit 32.7 % (36.0-47.0) Mean Corpuscular Volume 94 fL (79-100) Mean Corpuscular Hemoglobin 31 pg (25-35) Mean Corpuscular Hemoglobin Concent 33 g/dL (31-37) Red Cell Distribution Width 14.3 % (11.5-14.5) Platelet Count 156 x10^3/uL (140-400) Neutrophils (%) (Auto) 76 % (31-73) Lymphocytes (%) (Auto) 17 % (24-48) Monocytes (%) (Auto) 5 % (0-9) Eosinophils (%) (Auto) 2 % (0-3) Basophils (%) (Auto) 1 % (0-3) Neutrophils # (Auto) 6.4 x10^3/uL (1.8-7.7) Lymphocytes # (Auto) 1.4 x10^3/uL (1.0-4.8) Monocytes # (Auto) 0.4 x10^3/uL (0.0-1.1) Eosinophils # (Auto) 0.2 x10^3/uL (0.0-0.7) Basophils # (Auto) 0.1 x10^3/uL (0.0-0.2) Sodium Level 143 mmol/L (136-145) Potassium Level 5.2 mmol/L (3.5-5.1) Chloride Level 106 mmol/L (98-107) Carbon Dioxide Level 31 mmol/L (21-32) Anion Gap 6 (6-14) Blood Urea Nitrogen 24 mg/dL (7-20) Creatinine 1.0 mg/dL (0.6-1.0) Estimated GFR (Cockcroft-Gault) 55.1 Glucose Level 104 mg/dL (70-99) Calcium Level 9.2 mg/dL (8.5-10.1) Urine Collection Type Unknown Urine Color Yellow Urine Clarity Clear Urine pH 7.0 (<5.0-8.0) Urine Specific [place] 1.015 (1.000-1.030) Urine Protein Negative mg/dL (NEG-TRACE) Urine Glucose (UA) Negative mg/dL (NEG) Urine Ketones (Stick) Negative mg/dL (NEG) Urine Blood Negative (NEG) Urine Nitrite Negative (NEG) Urine Bilirubin Negative (NEG) Urine Urobilinogen Dipstick 0.2 mg/dL (0.2 mg/dL) Urine Leukocyte Esterase Negative (NEG) Urine RBC Rare /HPF (0-2) Urine WBC 1-4 /HPF (0-4) Urine Squamous Epithelial Cells Few /LPF Urine Bacteria 0 /HPF (0-FEW) Urine Mucus Slight /LPF Laboratory Tests Test 11/07/20 20:15 11/07/20 20:47 White Blood Count 8.5 x10^3/uL (4.0-11.0) Red Blood Count 3.47 x10^6/uL (3.50-5.40) Hemoglobin 10.7 g/dL (12.0-15.5) Hematocrit 32.7 % (36.0-47.0) Mean Corpuscular Volume 94 fL (79-100) Mean Corpuscular Hemoglobin 31 pg (25-35) Mean Corpuscular Hemoglobin Concent 33 g/dL (31-37) Red Cell Distribution Width 14.3 % (11.5-14.5) Platelet Count 156 x10^3/uL (140-400) Neutrophils (%) (Auto) 76 % (31-73) Lymphocytes (%) (Auto) 17 % (24-48) Monocytes (%) (Auto) 5 % (0-9) Eosinophils (%) (Auto) 2 % (0-3) Basophils (%) (Auto) 1 % (0-3) Neutrophils # (Auto) 6.4 x10^3/uL (1.8-7.7) Lymphocytes # (Auto) 1.4 x10^3/uL (1.0-4.8) Monocytes # (Auto) 0.4 x10^3/uL (0.0-1.1) Eosinophils # (Auto) 0.2 x10^3/uL (0.0-0.7) Basophils # (Auto) 0.1 x10^3/uL (0.0-0.2) Sodium Level 143 mmol/L (136-145) Potassium Level 5.2 mmol/L (3.5-5.1) Chloride Level 106 mmol/L (98-107) Carbon Dioxide Level 31 mmol/L (21-32) Anion Gap 6 (6-14) Blood Urea Nitrogen 24 mg/dL (7-20) Creatinine 1.0 mg/dL (0.6-1.0) Estimated GFR (Cockcroft-Gault) 55.1 Glucose Level 104 mg/dL (70-99) Calcium Level 9.2 mg/dL (8.5-10.1) Urine Collection Type Unknown Urine Color Yellow Urine Clarity Clear Urine pH 7.0 (<5.0-8.0) Urine Specific [place] 1.015 (1.000-1.030) Urine Protein Negative mg/dL (NEG-TRACE) Urine Glucose (UA) Negative mg/dL (NEG) Urine Ketones (Stick) Negative mg/dL (NEG) Urine Blood Negative (NEG) Urine Nitrite Negative (NEG) Urine Bilirubin Negative (NEG) Urine Urobilinogen Dipstick 0.2 mg/dL (0.2 mg/dL) Urine Leukocyte Esterase Negative (NEG) Urine RBC Rare /HPF (0-2) Urine WBC 1-4 /HPF (0-4) Urine Squamous Epithelial Cells Few /LPF Urine Bacteria 0 /HPF (0-FEW) Urine Mucus Slight /LPF VTE Prophylaxis Ordered VTE Prophylaxis Devices: No VTE Pharmacological Prophylaxi: Yes Assessment/Plan Assessment/Plan feet pain and hand pain, neuropathy, exacerbated by cold urinary incontinence, consult Recruiting Coordinator, could consider pessary, she was sscheduled for urogyn surg today at [facility], cancelled due to weather morbid obesity, BMI > 50 weakness and debility, poor ability to care for herself, recent Skilled stays x2 Justifications for Admission Other Justification UTI, AMS NNAMDI SHELLEY MD Nov 07, 2020 21:48
[2020-11-07] MEDS ORDERED: ACETAMINOPHEN 325 MG TABLET. PO PRN (22:00)
[2020-11-07] MEDS ORDERED: ALPRAZolam 0.5 MG TABLET PO PRN (22:00)
[2020-11-07 22:35] VITALS: BP 116/62
[2020-11-07] MEDS ORDERED: PRAMIPEXOLE 1 MG TABLET. PO SCH (23:00)
[2020-11-07] MEDS: GABAPENTIN 400 MG CAPSULE. PO SCH (23:47)
[2020-11-07] MEDS: HYDROcodone/APAP 7.5/325MG 1 TAB TABLET PO PRN (23:47)
[2020-11-07] MEDS: FAMOTIDINE 20 MG TABLET. PO SCH (23:47)
[2020-11-08 03:00] VITALS: BP 102/47
[2020-11-08] MEDS ORDERED: C.DIFF MED SCREEN BY RX. MC ONE (03:45)
[2020-11-08] MEDS ORDERED: LEVOTHYROXINE 150 MCG TABLET PO SCH (06:00)
[2020-11-08] MEDS ORDERED: MAGNESIUM OXIDE 400 MG TABLET PO SCH (07:30)
[2020-11-08 08:28] LABS: BASO % 0 % (0-3); EOS # 0.2 x10^3/uL (0.0-0.7); EOS % 2 % (0-3); HEMATOCRIT 32.3 % (36.0-47.0); HEMOGLOBIN 10.5 g/dL (12.0-15.5); LYMPH # 1.9 x10^3/uL (1.0-4.8); LYMPH % 26 % (24-48); MEAN CORPUSCULAR HEMOGLOBIN 31 pg (25-35); MEAN CORPUSCULAR HGB CONC 33 g/dL (31-37); MEAN CORPUSCULAR VOLUME 94 fL (79-100); MONO # 0.4 x10^3/uL (0.0-1.1); MONO % 5 % (0-9); NEUT % 67 % (31-73); PLATELET COUNT 157 x10^3/uL (140-400); RED BLOOD COUNT 3.44 x10^6/uL (3.50-5.40); RED CELL DISTRIBUTION WIDTH 14.9 % (11.5-14.5); WHITE BLOOD COUNT 7.5 x10^3/uL (4.0-11.0)
[2020-11-08 08:32] LABS: CALCIUM 8.8 mg/dL (8.5-10.1); CREATININE 1.1 mg/dL (0.6-1.0); GFR 49.4; POTASSIUM 4.8 mmol/L (3.5-5.1)
[2020-11-08] MEDS ORDERED: CITALOPRAM 20 MG TABLET. PO SCH (09:00)
[2020-11-08] MEDS ORDERED: SMZ/TMP 800/160MG TABLET. PO SCH (09:00)
[2020-11-08] MEDS ORDERED: ASPIRIN CHEWABLE 81 MG TABLET. PO SCH (09:00)
[2020-11-08] MEDS ORDERED: DICLOFENAC SODIUM 1% TOPICAL GEL 100GM TUBE. TP SCH (09:00)
[2020-11-08] MEDS ORDERED: LOSARTAN POTASSIUM 50 MG TABLET. PO SCH (09:00)
[2020-11-08] MEDS ORDERED: FUROSEMIDE 40 MG TABLET. PO SCH (09:00)
[2020-11-08] MEDS ORDERED: DOCUSATE SODIUM 100 MG CAPSULE. PO SCH (09:00)
[2020-11-08] MEDS ORDERED: METOPROLOL SUCC 24HR ER 100 MG TAB.ER.24H. PO SCH (09:00)
[2020-11-08] MEDS ORDERED: NYSTATIN TOPICAL POWDER 15GM BOTTLE. TP SCH (09:00)
[2020-11-08] MEDS: GABAPENTIN 400 MG CAPSULE. PO SCH (11:12)
[2020-11-08] MEDS: FAMOTIDINE 20 MG TABLET. PO SCH (11:12)
[2020-11-08 11:16] VITALS: BP 127/65
[2020-11-08] MEDS: HYDROcodone/APAP 7.5/325MG 1 TAB TABLET PO PRN (11:18)
--- NOTE | 2020-11-08 13:43 | NUR ---
Patient left around 1343 with family. Script given for lortab 7.5325 to patient. IV discontinued without complications. Wound care done prior to discharge by wound care. Patient to follow up with her urologist next week. Discharge instructions gone over by this nurse and the doctor.No concerns noted at discharge. [employer] down this morning and printer overwhelmed and printing slowly. Patients medication records were printed late and medications given as soon as papers were printed. Patient refused lasix this morning.
--- NOTE | 2020-11-08 13:55 | NUR ---
COMPUTER ANALYST charting done by paper today for vital signs and rounding. Review chart for records
--- NOTE | 2020-11-08 15:18 | PDOC3 ---
Discharge Summary Visit Information Date of Admission: Nov 07, 2020 Date of Discharge: Nov 08, 2020 Final Diagnosis feet pain and hand pain, neuropathy, exacerbated by cold urinary incontinence, consult Metal Organ Pipe Maker, could consider pessary, she was sscheduled for urogyn surg today at [facility], cancelled due to weather morbid obesity, BMI > 50 weakness and debility, poor ability to care for herself, recent Skilled stays x2 Problems Medical Problems: (1) Peripheral neuropathy Status: Acute Brief Hospital Course Allergies Allergies Coded Allergies Type Severity Reaction Last Updated Verified amoxicillin trihydrate Allergy Intermediate 03/20/18 Yes celecoxib Allergy Intermediate 10/15/14 Yes potassium clavulanate Allergy Intermediate 10/15/14 Yes I S O L A T I O N *CONTACT* Allergy Unknown 02/11/15 Yes Vital Signs Vital Signs Date Time Temp Pulse Resp B/P (MAP) Pulse Ox O2 Delivery O2 Flow Rate FiO2 11/08/20 12:18 92 Room Air 11/08/20 11:16 127/65 11/08/20 03:00 98.7 86 18 98.7 Lab Results Laboratory Tests Test 11/07/20 20:15 11/07/20 20:47 11/08/20 07:50 White Blood Count 8.5 x10^3/uL (4.0-11.0) 7.5 x10^3/uL (4.0-11.0) Red Blood Count 3.47 x10^6/uL (3.50-5.40) 3.44 x10^6/uL (3.50-5.40) Hemoglobin 10.7 g/dL (12.0-15.5) 10.5 g/dL (12.0-15.5) Hematocrit 32.7 % (36.0-47.0) 32.3 % (36.0-47.0) Mean Corpuscular Volume 94 fL (79-100) 94 fL (79-100) Mean Corpuscular Hemoglobin 31 pg (25-35) 31 pg (25-35) Mean Corpuscular Hemoglobin Concent 33 g/dL (31-37) 33 g/dL (31-37) Red Cell Distribution Width 14.3 % (11.5-14.5) 14.9 % (11.5-14.5) Platelet Count 156 x10^3/uL (140-400) 157 x10^3/uL (140-400) Neutrophils (%) (Auto) 76 % (31-73) 67 % (31-73) Lymphocytes (%) (Auto) 17 % (24-48) 26 % (24-48) Monocytes (%) (Auto) 5 % (0-9) 5 % (0-9) Eosinophils (%) (Auto) 2 % (0-3) 2 % (0-3) Basophils (%) (Auto) 1 % (0-3) 0 % (0-3) Neutrophils # (Auto) 6.4 x10^3/uL (1.8-7.7) 5.0 x10^3/uL (1.8-7.7) Lymphocytes # (Auto) 1.4 x10^3/uL (1.0-4.8) 1.9 x10^3/uL (1.0-4.8) Monocytes # (Auto) 0.4 x10^3/uL (0.0-1.1) 0.4 x10^3/uL (0.0-1.1) Eosinophils # (Auto) 0.2 x10^3/uL (0.0-0.7) 0.2 x10^3/uL (0.0-0.7) Basophils # (Auto) 0.1 x10^3/uL (0.0-0.2) 0.0 x10^3/uL (0.0-0.2) Sodium Level 143 mmol/L (136-145) 143 mmol/L (136-145) Potassium Level 5.2 mmol/L (3.5-5.1) 4.8 mmol/L (3.5-5.1) Chloride Level 106 mmol/L (98-107) 106 mmol/L (98-107) Carbon Dioxide Level 31 mmol/L (21-32) 30 mmol/L (21-32) Anion Gap 6 (6-14) 7 (6-14) Blood Urea Nitrogen 24 mg/dL (7-20) 29 mg/dL (7-20) Creatinine 1.0 mg/dL (0.6-1.0) 1.1 mg/dL (0.6-1.0) Estimated GFR (Cockcroft-Gault) 55.1 49.4 Glucose Level 104 mg/dL (70-99) 102 mg/dL (70-99) Calcium Level 9.2 mg/dL (8.5-10.1) 8.8 mg/dL (8.5-10.1) Urine Collection Type Unknown Urine Color Yellow Urine Clarity Clear Urine pH 7.0 (<5.0-8.0) Urine Specific [place] 1.015 (1.000-1.030) Urine Protein Negative mg/dL (NEG-TRACE) Urine Glucose (UA) Negative mg/dL (NEG) Urine Ketones (Stick) Negative mg/dL (NEG) Urine Blood Negative (NEG) Urine Nitrite Negative (NEG) Urine Bilirubin Negative (NEG) Urine Urobilinogen Dipstick 0.2 mg/dL (0.2 mg/dL) Urine Leukocyte Esterase Negative (NEG) Urine RBC Rare /HPF (0-2) Urine WBC 1-4 /HPF (0-4) Urine Squamous Epithelial Cells Few /LPF Urine Bacteria 0 /HPF (0-FEW) Urine Mucus Slight /LPF Laboratory Tests Test 11/07/20 20:15 11/07/20 20:47 11/08/20 07:50 White Blood Count 8.5 x10^3/uL (4.0-11.0) 7.5 x10^3/uL (4.0-11.0) Red Blood Count 3.47 x10^6/uL (3.50-5.40) 3.44 x10^6/uL (3.50-5.40) Hemoglobin 10.7 g/dL (12.0-15.5) 10.5 g/dL (12.0-15.5) Hematocrit 32.7 % (36.0-47.0) 32.3 % (36.0-47.0) Mean Corpuscular Volume 94 fL (79-100) 94 fL (79-100) Mean Corpuscular Hemoglobin 31 pg (25-35) 31 pg (25-35) Mean Corpuscular Hemoglobin Concent 33 g/dL (31-37) 33 g/dL (31-37) Red Cell Distribution Width 14.3 % (11.5-14.5) 14.9 % (11.5-14.5) Platelet Count 156 x10^3/uL (140-400) 157 x10^3/uL (140-400) Neutrophils (%) (Auto) 76 % (31-73) 67 % (31-73) Lymphocytes (%) (Auto) 17 % (24-48) 26 % (24-48) Monocytes (%) (Auto) 5 % (0-9) 5 % (0-9) Eosinophils (%) (Auto) 2 % (0-3) 2 % (0-3) Basophils (%) (Auto) 1 % (0-3) 0 % (0-3) Neutrophils # (Auto) 6.4 x10^3/uL (1.8-7.7) 5.0 x10^3/uL (1.8-7.7) Lymphocytes # (Auto) 1.4 x10^3/uL (1.0-4.8) 1.9 x10^3/uL (1.0-4.8) Monocytes # (Auto) 0.4 x10^3/uL (0.0-1.1) 0.4 x10^3/uL (0.0-1.1) Eosinophils # (Auto) 0.2 x10^3/uL (0.0-0.7) 0.2 x10^3/uL (0.0-0.7) Basophils # (Auto) 0.1 x10^3/uL (0.0-0.2) 0.0 x10^3/uL (0.0-0.2) Sodium Level 143 mmol/L (136-145) 143 mmol/L (136-145) Potassium Level 5.2 mmol/L (3.5-5.1) 4.8 mmol/L (3.5-5.1) Chloride Level 106 mmol/L (98-107) 106 mmol/L (98-107) Carbon Dioxide Level 31 mmol/L (21-32) 30 mmol/L (21-32) Anion Gap 6 (6-14) 7 (6-14) Blood Urea Nitrogen 24 mg/dL (7-20) 29 mg/dL (7-20) Creatinine 1.0 mg/dL (0.6-1.0) 1.1 mg/dL (0.6-1.0) Estimated GFR (Cockcroft-Gault) 55.1 49.4 Glucose Level 104 mg/dL (70-99) 102 mg/dL (70-99) Calcium Level 9.2 mg/dL (8.5-10.1) 8.8 mg/dL (8.5-10.1) Urine Collection Type Unknown Urine Color Yellow Urine Clarity Clear Urine pH 7.0 (<5.0-8.0) Urine Specific [place] 1.015 (1.000-1.030) Urine Protein Negative mg/dL (NEG-TRACE) Urine Glucose (UA) Negative mg/dL (NEG) Urine Ketones (Stick) Negative mg/dL (NEG) Urine Blood Negative (NEG) Urine Nitrite Negative (NEG) Urine Bilirubin Negative (NEG) Urine Urobilinogen Dipstick 0.2 mg/dL (0.2 mg/dL) Urine Leukocyte Esterase Negative (NEG) Urine RBC Rare /HPF (0-2) Urine WBC 1-4 /HPF (0-4) Urine Squamous Epithelial Cells Few /LPF Urine Bacteria 0 /HPF (0-FEW) Urine Mucus Slight /LPF Brief Hospital Course Ms. Sanders is a 70 old female, recent admit for UTI, has urinary incontinence, came to ER for excussive, freq urination, unable to keep herself clean, then too cold at home, -12 degrees F, and she was wet and cold and her neuropathy got set off, admit, Dr. Nakita camarena for pessary, she has appt to follow at [facility] for some urogyn to repair, Discharge Information Condition at Discharge: Improved Follow Up: Weeks Disposition/Orders: D/C to Home Scheduled Aspirin (Aspirin) 81 Mg Tab.chew, 81 MG PO DAILY for Heart Health, (Reported) Entered as Reported by: NANETTE AGUIAR on 08/08/19 1321 Last Action: Continued on 11/07/202150 by NNAMDI SHELLEY Budesonide/Formoterol Fumarate (Symbicort 160-4.5 Mcg Inhaler) 10.2 Gm Hfa.aer.ad, 2 PUFF IH BID, (Reported) Entered as Reported by: LORNA ZHOU on 10/03/13 0751 Last Action: HELD on 11/07/202150 by NNAMDI SHELLEY Citalopram Hydrobromide (Citalopram Hbr) 40 Mg Tablet, 40 MG PO DAILY, (Reported) Entered as Reported by: LORNA ZHOU on 10/03/13 0751 Last Action: Converted on 11/07/202150 by NNAMDI SHELLEY Diclofenac Sodium (Voltaren) 100 Gm Gel..gram., 1 LIZA TP BID for Osteoarthritis for 30 Days, #60 Ref 2 Prescribed by: EULALIA MILLS MD on 08/10/19 1357 Last Action: Continued on 11/07/202150 by NNAMDI SHELLEY Docusate Sodium (Colace) 100 Mg Capsule, 1 CAP PO DAILY for Constipation for 15 Days, #15 Ref 0 (Reported) Entered as Reported by: NANETTE AGUIAR on 08/08/19 1321 Last Action: Continued on 11/07/202150 by NNAMDI SHELLEY Ergocalciferol (Vitamin D2) (Vitamin D2) 50,000 Unit Capsule, 50,000 UNIT PO WEEKLY, (Reported) Entered as Reported by: [facility] on 11/21/15 1101 Last Action: HELD on 11/07/202150 by NNAMDI SHELLEY Famotidine (Famotidine) 20 Mg Tablet, 20 MG PO BID for GERD, (Reported) Entered as Reported by: NANETTE AGUIAR on 08/08/19 1321 Last Action: Continued on 11/07/202150 by NNAMDI SHELLEY Ferrous Sulfate (Ferrous Sulfate) 325 Mg Tablet, 1 TAB PO DAILY for anemia, #30 Ref 3 (Reported) Entered as Reported by: LINDSEY JOAQUIN on 09/23/20150 Last Action: HELD on 11/07/202150 by NNAMDI SHELLEY Furosemide (Furosemide) 40 Mg Tablet, 1 TAB PO DAILY for diuretic, #30 Ref 5 (Reported) Entered as Reported by: LINDSEY JOAQUIN on 09/23/20150 Last Action: Continued on 11/07/202150 by NNAMDI SHELLEY Gabapentin (Gabapentin) 800 Mg Tablet, 800 MG PO TID for NEUROGENIC PAIN, (Reported) Entered as Reported by: LINDSEY JOAQUIN on 09/23/20150 Last Action: Converted on 11/07/202150 by NNAMDI SHELLEY Levothyroxine Sodium (Synthroid) 150 Mcg Tablet, 1 TAB PO DAILY for hypothyroid, #30 Ref 5 (Reported) Entered as Reported by: LINDSEY JOAQUIN on 09/23/20150 Last Action: Continued on 11/07/202150 by NNAMDI SHELLEY Levothyroxine Sodium (Synthroid) 200 Mcg Tablet, 1 TAB PO DAILY for hypothyroid, #30 Ref 5 (Reported) Entered as Reported by: LINDSEY JOAQUIN on 09/23/20 0151 Last Action: HELD on 11/07/202150 by NNAMDI SHELLEY Losartan Potassium (Losartan Potassium) 50 Mg Tablet, 50 MG PO DAILY for HYPERTENSION, (Reported) Entered as Reported by: Antwon Butler on 08/10/19 1619 Last Action: Continued on 11/07/202150 by NNAMDI SHELLEY Magnesium Oxide (Magnesium Oxide) 400 Mg Tablet, 400 MG PO BIDAC for Hypomagnesemia for 30 Days, #60 Prescribed by: EULALIA MILLS MD on 08/31/20 1259 Last Action: Continued on 11/07/202150 by NNAMDI SHELLEY Metoprolol Succinate (Metoprolol Succinate ( Xl )) 100 Mg Tab.er.24h, 100 MG PO DAILY, (Reported) Entered as Reported by: LORNA ZHOU on 10/03/13 0751 Last Action: Continued on 11/07/202150 by NNAMDI SHELLEY Nystatin (Nystatin) 15 Gm Powder, 1 LIZA TP BID for yeast for 7 Days, #1 Ref 0 (Reported) apply to affected area(s) Entered as Reported by: AIMEE SILVA on 10/26/202057 Last Action: Continued on 11/07/202150 by NNAMDI SHELLEY Pramipexole Di-Hcl (Mirapex) 1 Mg Tablet, 1 MG PO HS for restless leg, (Re ported) Entered as Reported by: LINDSEY JOAQUIN on 09/23/20 0304 Last Action: Continued on 11/07/202150 by NNAMDI SHELLEY Psyllium Husk (Metamucil) 0.52 Gm Capsule, 1 CAP PO QODAY for contipation for 30 Days, #30 Ref 0 (Reported) Entered as Reported by: NANETTE AGUIAR on 08/08/19 1321 Last Action: HELD on 11/07/202150 by NNAMDI SHELLEY Sulfamethoxazole/Trimethoprim (Bactrim Ds Tablet) 1 Each Tablet, 1 TAB PO BID for UTI for 1 Days, #2 Ref 0 Prescribed by: JUANA VENTURA MD on 10/27/20 1055 Last Action: Continued on 11/07/202150 by NNAMDI SHELLEY Scheduled PRN Acetaminophen (Tylenol) 325 Mg Tablet, 650 MG PO PRN Q4HRS PRN for TEMP OVER 100.4F for 30 Days, #120 Prescribed by: EULALIA MILLS MD on 08/31/201258 Last Action: Continued on 11/07/202150 by NNAMDI SHELLEY Alprazolam (Alprazolam) 0.5 Mg Tablet, 0.5 MG PO PRN TID PRN for ANXIETY / AGITATION for 6 Days, #15 Prescribed by: EULALIA MILLS MD on 08/31/201258 Last Action: Continued on 11/07/202150 by NNAMDI SHELLEY Ammonium Lactate (Ammonium Lactate) 226 Gm Lotion, 1 LIZA TP PRN BID PRN for DRY SKIN / SCALING for 30 Days, #1 Prescribed by: EULALIA MILLS MD on 08/31/201258 Last Action: HELD on 11/07/202150 by NNAMDI SHELLEY Hydrocodone Bit/Acetaminophen (Hydrocodone-Apap 7.5-325 ) 1 Tab Tablet, 1 TAB PO PRN Q6HRS PRN for PAIN, Ref 0 (Reported) Entered as Reported by: LINDSEY JOAQUIN on 09/23/20 0151 Last Action: Continued on 11/07/202150 by NNAMDI SHELLEY Patient Instructions Patient Instructions seen face to face obs DC Justicifation of Admission Dx: Justifications for Admission: Justification of Admission Dx: N/A NNAMDI SHELLEY MD Nov 08, 2020 15:18
== END 2020-11-08 13:43 | disposition home or self-care (01) ==
LOC: ER 19:37 → 4 NORTH 21:22
PROVIDERS: ADMIT Internal Medicine; ATTEND Internal Medicine
DX: G62.9 Polyneuropathy, unspecified (principal); I11.0 Hypertensive heart disease with heart failure; I50.9 Heart failure, unspecified; J45.909 Unspecified asthma, uncomplicated; E11.40 Type 2 diabetes mellitus with diabetic neuropathy, unspecified; E03.9 Hypothyroidism, unspecified; R32 Unspecified urinary incontinence; N39.0 Urinary tract infection, site not specified; K21.9 Gastro-esophageal reflux disease without esophagitis; D64.9 Anemia, unspecified; F41.9 Anxiety disorder, unspecified; F32.9 Major depressive disorder, single episode, unspecified; E78.5 Hyperlipidemia, unspecified; E78.00 Pure hypercholesterolemia, unspecified; R53.81 Other malaise; E66.01 Morbid (severe) obesity due to excess calories; Z68.43 Body mass index [BMI] 50.0-59.9, adult; Z87.440 Personal history of urinary (tract) infections; Z90.710 Acquired absence of both cervix and uterus; Z91.14 Patient's other noncompliance with medication regimen; Z98.891 History of uterine scar from previous surgery; Z98.890 Other specified postprocedural states; Z79.82 Long term (current) use of aspirin; Z86.19 Personal history of other infectious and parasitic diseases; Z90.49 Acquired absence of other specified parts of digestive tract
CPT/HCPCS: 36415; 80048; 81001; 85025; 96372; 99284; G0378; J1885; G0379

== ENCOUNTER 2020-11-14 02:37 | Emergency (ER) | payer MEDICARE ==
[~2020-11-14] VITALS: Ht 157.5 cm; Wt 125.0 kg
[2020-11-14] MEDS ORDERED: KETOROLAC 15 MG/ML VIAL. IVP ONE (03:00)
[2020-11-14] MEDS ORDERED: METOCLOPRAMIDE HCL 10 MG/2 ML VIAL. IVP ONE (03:00)
[2020-11-14] MEDS ORDERED: IV NORMAL SALINE 1000ML BAG 1,000 ML IV ONE (03:00)
[2020-11-14 03:10] LABS: BASO # 0.1 x10^3/uL (0.0-0.2); BASO % 1 % (0-3); EOS # 0.2 x10^3/uL (0.0-0.7); EOS % 3 % (0-3); HEMATOCRIT 33.3 % (36.0-47.0); HEMOGLOBIN 10.6 g/dL (12.0-15.5); LYMPH # 1.9 x10^3/uL (1.0-4.8); LYMPH % 26 % (24-48); MEAN CORPUSCULAR HEMOGLOBIN 31 pg (25-35); MEAN CORPUSCULAR HGB CONC 32 g/dL (31-37); MEAN CORPUSCULAR VOLUME 96 fL (79-100); MONO # 0.5 x10^3/uL (0.0-1.1); MONO % 7 % (0-9); NEUT # 4.7 x10^3/uL (1.8-7.7); NEUT % 64 % (31-73); PLATELET COUNT 167 x10^3/uL (140-400); RED BLOOD COUNT 3.47 x10^6/uL (3.50-5.40); RED CELL DISTRIBUTION WIDTH 14.6 % (11.5-14.5); WHITE BLOOD COUNT 7.4 x10^3/uL (4.0-11.0)
[2020-11-14 03:11] LABS: BILIRUBIN,URINE NEGATIVE (NEG); CLARITY,URINE CLEAR; COLOR,URINE YELLOW; NITRITE,URINE NEGATIVE (NEG); PH,URINE 5.5 (<5.0-8.0); PROTEIN,URINE NEGATIVE (NEG-TRACE); UROBILINOGEN,URINE 0.2 mg/dL (0.2 mg/dL)
--- NOTE | 2020-11-14 03:15 | PHYS DOC ---
Past Medical History Past Medical History: Anxiety, Asthma, CHF, Depression, GERD, High Cholesterol, Hypertension, Hypothyroid, MRSA, Pneumonia, UTI, Other Additional Past Medical Histor: hep c,periph neurop,L FOOT WOUND Past Surgical History: , Hysterectomy, Oophorectomy, Tonsillectomy, Other Additional Past Surgical Histo: wrist,knee scope,rt carpqal tunnel,WEIGHT LOSS SURGERY Smoking Status: Never Smoker Alcohol Use: None Drug Use: None General Adult EDM: Chief Complaint: FLANK PAIN HPI: HPI: Patient is a 70 year old female who presents with right flank pain. The patient says she has a history of frequent UTI and that these symptoms feel similar, except now she also has right flank pain which is unusual for her. This has been going on since yesterday. The patient denies hematuria, but states she has felt some fever and chills although temperature was within normal range in the ED. The pain is just along the right flank and has been fairly constant, she currently rates it as a 7 out of 10. Review of Systems: Review of Systems: Constitutional: Notes fever or chills Eyes: Denies redness or eye pain HENT: Denies nasal congestion or sore throat Respiratory: Denies cough or shortness of breath Cardiovascular: Denies chest pain or palpitations GI: Admits right-sided abdominal pain, nausea, or vomiting : Denies dysuria or hematuria Musculoskeletal: Denies back pain or joint pain Integument: Denies rash or skin lesions Neurologic: Denies headache, focal weakness or sensory changes Complete systems were reviewed and found to be within normal limits, except as documented in this note. Current Medications: Current Medications Medications (Trade) Dose Ordered Sig/Doris Start Time Stop Time Status Last Admin Dose Admin Ketorolac Tromethamine (Toradol 15mg Vial) 15 mg 1X ONCE 11/14/20 03:00 11/14/20 03:04 DC Metoclopramide HCl (Reglan Vial) 10 mg 1X ONCE 11/14/20 03:00 11/14/20 03:04 DC Sodium Chloride 1,000 ml @ 1,000 mls/hr 1X ONCE 11/14/20 03:00 11/14/20 03:59 Allergies: Allergies: Allergies Coded Allergies Type Severity Reaction Last Updated Verified amoxicillin trihydrate Allergy Intermediate 03/20/18 Yes celecoxib Allergy Intermediate 10/15/14 Yes potassium clavulanate Allergy Intermediate 10/15/14 Yes I S O L A T I O N *CONTACT* Allergy Unknown 02/11/15 Yes Physical Exam: PE: Constitutional: Well developed, well nourished, no acute distress, non-toxic appearance HENT: Normocephalic, atraumatic Eyes: PERRL, EOMI, conjunctiva normal, no discharge Neck: Normal range of motion, no tenderness, supple Lungs & Thorax: No respiratory distress, equal chest rise and fall Abdomen: Soft, right-sided flank tenderness Skin: Warm, dry, no erythema, no rash Back: No tenderness, some CVA tenderness on the right Extremities: No tenderness, ROM intact, no edema Neurologic: Alert and oriented X 3, normal motor function, normal sensory function, no focal deficits noted Psychologic: Affect normal, judgment normal EKG: EKG: [] Radiology/Procedures: Radiology/Procedures: PROCEDURE: CT ABDOMEN PELVIS WO CONTRAST Study: CT abdomen/pelvis without intravenous contrast Indication: Right flank pain. Comparison: None recently. Technique: Helical CT imaging performed of the abdomen and pelvis without the use of intravenous contrast. Sagittal and coronal reformats were obtained. One or more of the following individualized dose reduction techniques were utilized for this examination: 1. Automated exposure control 2. Adjustment of the mA and/or kV according to patient size 3. Use of iterative reconstruction technique. Findings: Inherently limited evaluation without intravenous contrast. The study is also limited due to patient body habitus. Motion degraded evaluation of the lungs. No concerning nodule or infiltrate is identified. Undulating hepatic margins and a somewhat prominent caudate lobe could indicate cirrhosis. The spleen is prominent in size at [address] manifestations of acute cholecystitis. Unremarkable biliary tree. No peripancreatic inflammation. No adrenal gland mass is identified. The right kidney measures smaller in size in the left and is hypoattenuating. No hydronephrosis on either side. No stone is seen within either ureter or within the urinary bladder. No appreciable bladder wall thickening. Poorly evaluated uterus. No discrete adnexal mass. No concerning colonic wall thickening. No inflammatory changes at the expected location of the appendix. Incompletely evaluated stomach on account of underdistention. Tubular structures coursing throughout the abdomen and pelvis that appear to be at least in part related to collateral vessels. Normal-appearing small bowel is short in length. Correlate for partial small bowel resection. Some of the tubular structures could be collapsed small bowel noting that a similar appearance was present in 2015. Scattered calcific atherosclerosis. Nonaneurysmal aorta. A few prominent inguinal lymph nodes such as on the right on image 174 series 2 measuring 1.5 cm short axis are favored reactive in the absence of a known malignancy. Fat- containing right lower quadrant ventral abdominal wall hernia has not significantly changed. Small fat-containing umbilical hernia. Osteopenia. Multifocal degenerative changes. No acute fracture is identified. Impression: 1. Limited study on account of patient body habitus and the absence of contrast. 2. No stone or collecting system dilatation is seen to explain the patient's reported right flank pain. The right kidney is smaller in size relative to the left and more hypoattenuating but this is nonspecific. There are no CT findings of cystitis but recommend correlation with urinalysis to exclude an ascending urinary tract infection. 3. Cirrhotic morphology of the liver and splenomegaly. 4. Tubular structures coursing through the mid to lower abdomen and pelvis could be in part from collateral vessels. Collapsed small bowel is a consideration as well noting that a similar appearance was present previously. Small bowel obstruction is unlikely as the stomach is collapsed. 5. Additional chronic findings as above. Electronically signed by: MARILEE JAQUEZ MD (11/14/2020 4:46 AM) [facility] Course & Med Decision Making: Course & Med Decision Making Pertinent Labs and Imaging studies reviewed. (See chart for details) [] Dragray Disclaimer: Dragon Disclaimer: This electronic medical record was generated, in whole or in part, using a voice recognition dictation system. Departure Departure Impression: Primary Impression: Acute flank pain Disposition: 01 DC HOME SELF CARE/HOMELESS Condition: STABLE Referrals: Aggie VILLA MD (PCP) Patient Instructions: Flank Pain, [id number], Urinary Tract Infection, [id number] Scripts Cephalexin (CEPHALEXIN) 500 Mg Tablet 1 TAB PO TID, #21 TAB Prov: YUDY DWYER DO 11/14/20 YUDY DWYER DO Nov 14, 2020 03:15
[2020-11-14 03:21] LABS: CALCIUM 8.6 mg/dL (8.5-10.1); GFR 55.1; POTASSIUM 4.4 mmol/L (3.5-5.1)
[2020-11-14 03:25] LABS: BACTERIA,URINE FEW /HPF (0-FEW); RBC,URINE OCC /HPF (0-2)
[2020-11-14 03:26] LABS: ALBUMIN 2.9 g/dL (3.4-5.0); ALBUMIN/GLOBULIN RATIO 0.6 (1.0-1.7); TOTAL BILIRUBIN 0.3 mg/dL (0.2-1.0); TOTAL PROTEIN 7.5 g/dL (6.4-8.2)
--- NOTE | 2020-11-14 04:49 | RAD ---
Study: CT abdomen/pelvis without intravenous contrast Indication: Right flank pain. Comparison: None recently. Technique: Helical CT imaging performed of the abdomen and pelvis without the use of intravenous cont rast. Sagittal and coronal reformats were obtained. One or more of the following individualized dose reduction techniques were utilized for this examinat ion: 1. Automated exposure control 2. Adjustment of the mA and/or kV according to patient size 3. Use of iterative reconstruction technique. Findings: Inherently limited evaluation without intravenous contrast. The study is also limited due to patient body habitus. Motion degraded evaluation of the lungs. No concerning nodule or infiltrate is identified. Undulating hepatic margins and a somewhat prominent caudate lobe could indicate cirrhosis. The spleen is prominent in size at [address] manifestations of acute cholecystitis. Unremarkabl e biliary tree. No peripancreatic inflammation. No adrenal gland mass is identified. The right kidney measures smaller in size in the left and is hypoattenuating. No hydronephrosis on ei ther side. No stone is seen within either ureter or within the urinary bladder. No appreciable bladde r wall thickening. Poorly evaluated uterus. No discrete adnexal mass. No concerning colonic wall thickening. No inflamma tory changes at the expected location of the appendix. Incompletely evaluated stomach on account of u nderdistention. Tubular structures coursing throughout the abdomen and pelvis that appear to be at le ast in part related to collateral vessels. Normal-appearing small bowel is short in length. Correlate for partial small bowel resection. Some of the tubular structures could be collapsed small bowel not ing that a similar appearance was present in 2015. Scattered calcific atherosclerosis. Nonaneurysmal aorta. A few prominent inguinal lymph nodes such as on the right on image 174 series 2 measuring 1.5 cm short axis are favored reactive in the absence o f a known malignancy. Fat-containing right lower quadrant ventral abdominal wall hernia has not signi ficantly changed. Small fat-containing umbilical hernia. Osteopenia. Multifocal degenerative changes. No acute fracture is identified. Impression: 1. Limited study on account of patient body habitus and the absence of contrast. 2. No stone or collecting system dilatation is seen to explain the patient's reported right flank pa in. The right kidney is smaller in size relative to the left and more hypoattenuating but this is non specific. There are no CT findings of cystitis but recommend correlation with urinalysis to exclude a n ascending urinary tract infection. 3. Cirrhotic morphology of the liver and splenomegaly. 4. Tubular structures coursing through the mid to lower abdomen and pelvis could be in part from col lateral vessels. Collapsed small bowel is a consideration as well noting that a similar appearance wa s present previously. Small bowel obstruction is unlikely as the stomach is collapsed. 5. Additional chronic findings as above. Electronically signed by: MARILEE JAQUEZ MD (11/14/2020 4:46 AM) [facility]
[2020-11-14] MEDS ORDERED: CEPH500T PO (04:58)
[2020-11-14] MEDS ORDERED: cefTRIAXone IV Push 1 GM VIAL. IVP ONE (05:15)
[2020-11-14 06:10] VITALS: BP 124/60
[2020-11-14] MEDS ORDERED: HYDR-2759 PO (22:12)
== END 2020-11-14 06:45 | disposition home or self-care (01) ==
LOC: ER 02:37
DX: R10.84 Generalized abdominal pain (principal); F41.9 Anxiety disorder, unspecified; J45.909 Unspecified asthma, uncomplicated; I11.0 Hypertensive heart disease with heart failure; I50.9 Heart failure, unspecified; E78.00 Pure hypercholesterolemia, unspecified; E03.9 Hypothyroidism, unspecified; F32.9 Major depressive disorder, single episode, unspecified; Z86.14 Personal history of Methicillin resistant Staphylococcus aureus infection; Z90.710 Acquired absence of both cervix and uterus; Z90.89 Acquired absence of other organs; Z98.890 Other specified postprocedural states; Z88.1 Allergy status to other antibiotic agents; Z88.8 Allergy status to other drugs, medicaments and biological substances
CPT/HCPCS: 36415; 74176; 80053; 81001; 83690; 85025; 87086; 96361; 96374; 96375; 99285; J0696; J1885; J2765; J7030

== ENCOUNTER 2020-11-14 19:01 | Emergency (ER) | payer MEDICARE ==
[~2020-11-14] VITALS: Ht 157.5 cm; Wt 100.0 kg
[~2020-11-14 19:01] MED LIST changes: +CEPH500T PO
--- NOTE | 2020-11-14 19:32 | PHYS DOC ---
Past Medical History Past Medical History: Anxiety, Asthma, CHF, Depression, GERD, High Cholesterol, Hypertension, Hypothyroid, MRSA, Pneumonia, UTI, Other Additional Past Medical Histor: hep c,periph neurop,L FOOT WOUND Past Surgical History: , Hysterectomy, Oophorectomy, Tonsillectomy, Other Additional Past Surgical Histo: wrist,knee scope,rt carpqal tunnel,WEIGHT LOSS SURGERY Smoking Status: Never Smoker Alcohol Use: None Drug Use: None General Adult EDM: Chief Complaint: LOWER EXT PAIN HPI: HPI: Patient is a 70 year old female past medical history asthma anxiety CHF depression GERD hyperlipidemia hypertension hypothyroid recent diagnosis of urinary tract infection presents with a chief complaint of bilateral lower extremity pain. Patient states her pain is so intense that she cannot get up out of her lazy boy. Patient states she normally takes Lortab for her pain but states she ran out yesterday. Patient was evaluated in the ER this morning and was diagnosed with a urinary tract infection. Review of Systems: Review of Systems: Constitutional: Denies fever or chills. [] Eyes: Denies change in visual acuity. [] HENT: Denies nasal congestion or sore throat. [] Respiratory: Denies cough or shortness of breath. [] Cardiovascular: Denies chest pain or edema. [] GI: Denies abdominal pain, nausea, vomiting, bloody stools or diarrhea. [] : Denies dysuria. [] Musculoskeletal: positve leg pain bilateral Integument: Denies rash. [] Neurologic: Denies headache, focal weakness or sensory changes. [] Endocrine: Denies polyuria or polydipsia. [] Lymphatic: Denies swollen glands. [] Psychiatric: Denies depression or anxiety. [] Heart Score: Risk Factors: Risk Factors: DM, Current or recent (<one month) smoker, HTN, HLP, family history of CAD, obesity. Risk Scores: Score 0 - 3: 2.5% MACE over next 6 weeks - Discharge Home Score 4 - 6: 20.3% MACE over next 6 weeks - Admit for Clinical Observation Score 7 - 10: 72.7% MACE over next 6 weeks - Early Invasive Strategies Allergies: Allergies: Allergies Coded Allergies Type Severity Reaction Last Updated Verified amoxicillin trihydrate Allergy Intermediate 03/20/18 Yes celecoxib Allergy Intermediate 10/15/14 Yes potassium clavulanate Allergy Intermediate 10/15/14 Yes I S O L A T I O N *CONTACT* Allergy Unknown 02/11/15 Yes Physical Exam: PE: Constitutional: Well developed, well nourished, no acute distress, non-toxic appearance. [] HENT: Normocephalic, atraumatic, bilateral external ears normal, oropharynx moist, no oral exudates, nose normal. [] Eyes: PERRLA, EOMI, conjunctiva normal, no discharge. [] Neck: Normal range of motion, no tenderness, supple, no stridor. [] Cardiovascular:Heart rate regular rhythm, no murmur [] Lungs & Thorax: Bilateral breath sounds clear to auscultation [] Abdomen: Bowel sounds normal, soft, no tenderness, no masses, no pulsatile masses. [] Skin: Warm, dry, no erythema, no rash. [] Back: No tenderness, no CVA tenderness. [] Extremities: No tenderness, no cyanosis, no clubbing, ROM intact, no edema. [] Neurologic: Alert and oriented X 3, normal motor function, normal sensory function, no focal deficits noted. [] Psychologic: Affect normal, judgement normal, mood normal. [] Current Patient Data: Vital Signs: Vital Signs Date Time Temp Pulse Resp B/P (MAP) Pulse Ox O2 Delivery O2 Flow Rate FiO2 11/14/20 19:05 99.5 100 18 128/58 (81) 96 99.5 EKG: EKG: [] Radiology/Procedures: Radiology/Procedures: [] Course & Med Decision Making: Course & Med Decision Making Pertinent Labs and Imaging studies reviewed. (See chart for details) [] Dragon Disclaimer: Dragon Disclaimer: This electronic medical record was generated, in whole or in part, using a voice recognition dictation system. Departure Departure Impression: Primary Impression: Leg pain Additional Impression: Medication refill Disposition: 01 DC HOME SELF CARE/HOMELESS Condition: STABLE Referrals: Aggie VILLA MD (PCP) Patient Instructions: Chronic Pain, Medication Refill, Emergency Department ISABEL LOPEZ DO Nov 14, 2020 19:32
[2020-11-14] MEDS ORDERED: HYDROcodone/APAP 5/325MG 1 TAB TABLET PO ONE (19:45)
[2020-11-14] MEDS ORDERED: IOHEXOL 350 MG/ML 100 ML VIAL. IV ONE (19:45)
[2020-11-14] MEDS ORDERED: CONTRAST GIVEN. MC PRN (20:00)
[2020-11-14] MEDS ORDERED: HYDR-2759 PO (22:12)
[2020-11-14] MEDS ORDERED: LIDO:MAALOX 1:1 20 ML SINGLE DOSE. SWSW ONE (22:45)
[2020-11-15 00:30] VITALS: BP 134/59
== END 2020-11-15 02:30 | disposition home or self-care (01) ==
LOC: ER 19:01
DX: M79.604 Pain in right leg (principal); M79.605 Pain in left leg; F41.9 Anxiety disorder, unspecified; J45.909 Unspecified asthma, uncomplicated; F32.9 Major depressive disorder, single episode, unspecified; I11.0 Hypertensive heart disease with heart failure; I50.9 Heart failure, unspecified; K21.9 Gastro-esophageal reflux disease without esophagitis; E03.9 Hypothyroidism, unspecified; Z86.14 Personal history of Methicillin resistant Staphylococcus aureus infection; Z90.89 Acquired absence of other organs; Z90.710 Acquired absence of both cervix and uterus; Z98.890 Other specified postprocedural states; Z88.1 Allergy status to other antibiotic agents; Z88.8 Allergy status to other drugs, medicaments and biological substances
CPT/HCPCS: 99285

== ENCOUNTER 2021-02-13 16:42 | Observation (INO) | payer MEDICARE ==
[~2021-02-13] VITALS: Ht 157.5 cm; Wt 126.6 kg
[~2021-02-13 16:42] MED LIST changes: -CALC600T6 PO; +CALC600T60 PO; +HYDR-2759 PO; +NYST15CR2 TP
--- NOTE | 2021-02-13 18:16 | RAD ---
XR BILATERAL HIP (WITH OR WITHOUT PELVIS) 2 VIEWS_RIGHT History: Reason: fall pain / Spl. Instructions: / History: Technique: AP view the pelvis and 2 additional views of the right hip. Comparison: September 24, [address] November 14, 2020 Findings: Normal alignment. No fracture. Heterotopic ossification adjacent to the right greater trochanter, unc hanged. Linear sclerosis along the right lateral femoral neck related to marginal osteophyte is seen on prior CT. Moderate pubic symphysis DJD. Lower lumbar spondylosis. Mild bilateral hip DJD. Impression: 1. No acute osseous abnormality. 2. Bilateral hip DJD. Electronically signed by: Darinel Saha DO (02/13/2021 6:14 PM) [facility]
[2021-02-13] MEDS ORDERED: MORPHINE SULFATE 4 MG/ML VIAL. IM ONE (18:45)
--- NOTE | 2021-02-13 18:54 | RAD ---
EXAMINATION: CT LOWER RIGHT EXTREMITY WITHOUT CONTRAST, 02/13/2021 6:29 PM CLINICAL INDICATION: Pain, fall COMPARISON: CT abdomen pelvis 11/14/2020. Right hip radiograph 02/13/2021 TECHNIQUE: Helical CT imaging performed of the right hip without the use of intravenous contrast. Sag ittal and coronal reformats were obtained. One or more of the following individualized dose reduction techniques were utilized for this examinat ion: 1. Automated exposure control 2. Adjustment of the mA and/or kV according to patient size 3. Use of iterative reconstruction technique. FINDINGS: There is no acute fracture. There is mild degenerative joint disease of the right hip with mild joint space narrowing and small ring osteophyte. Mild enthesopathy at the right greater trochant er. There is mild degenerative joint disease of the pubic symphysis. Surgical changes of the bowel se en in the right lower quadrant. There is a fat-containing lateral abdominal wall hernia in the right lower quadrant.. IMPRESSION: No acute fracture. Electronically signed by: Eliza Beaulieu MD (02/13/2021 6:52 PM) [id number]
[2021-02-13 21:01] LABS: BILIRUBIN,URINE NEGATIVE (NEG); CLARITY,URINE CLEAR; COLOR,URINE YELLOW; NITRITE,URINE NEGATIVE (NEG); PROTEIN,URINE NEGATIVE (NEG-TRACE); UROBILINOGEN,URINE 0.2 mg/dL (0.2 mg/dL)
[2021-02-13 21:07] LABS: AMORPHOUS SEDIMENT,UR PRESENT /HPF; BACTERIA,URINE MODERATE /HPF (0-FEW); WBC,URINE OCC /HPF (0-4)
--- NOTE | 2021-02-13 23:14 | PHYS DOC ---
Past Medical History Past Medical History: Anxiety, Asthma, CHF, Depression, GERD, High Cholesterol, Hypertension, Hypothyroid, Hepatitis, MRSA, Pneumonia, UTI, Other Additional Past Medical Histor: HCV,periph neurop,L FOOT WOUND Past Surgical History: , Gastric Bypass, Hysterectomy, Oophorectomy, Tonsillectomy, Other Additional Past Surgical Histo: wrist,knee scope,rt carpqal tunnel Smoking Status: Never Smoker Alcohol Use: None Drug Use: None General Adult EDM: Chief Complaint: MECHANICAL FALL HPI: HPI: Patient is a 70 year old obese female patient with history of hypertension, high cholesterol, anxiety, depression, who presents to the ED today complaining of 10 out of 10 right hip pain that began at 11:00 this morning after she fell. Patient states she was getting out of her recliner, she lost her footing and fell. Denies any loss of consciousness. Describes the pain as sharp and constant worse on weightbearing. She states she was able to bear some weight on the right lower extremity but she needed help from EMS. She states she unfortunately is home alone and not able to comfortably go back home. Review of Systems: Review of Systems: Constitutional: Denies fever or chills. [] Eyes: Denies change in visual acuity. [] HENT: Denies nasal congestion or sore throat. [] Respiratory: Denies cough or shortness of breath. [] Cardiovascular: Denies chest pain or edema. [] GI: Denies abdominal pain, nausea, vomiting, bloody stools or diarrhea. [] : Denies dysuria. [] Musculoskeletal: Reports right hip pain. Denies back pain Integument: Denies rash. [] Neurologic: Denies headache, focal weakness or sensory changes. [] Psychiatric: Denies depression or anxiety. [] Heart Score: C/O Chest Pain: N/A Risk Factors: Risk Factors: DM, Current or recent (<one month) smoker, HTN, HLP, family history of CAD, obesity. Risk Scores: Score 0 - 3: 2.5% MACE over next 6 weeks - Discharge Home Score 4 - 6: 20.3% MACE over next 6 weeks - Admit for Clinical Observation Score 7 - 10: 72.7% MACE over next 6 weeks - Early Invasive Strategies Current Medications: Current Medications Medications (Trade) Dose Ordered Sig/Doris Start Time Stop Time Status Last Admin Dose Admin Morphine Sulfate (Morphine Sulfate) 4 mg 1X ONCE 02/13/21 18:45 02/13/21 18:46 DC 02/13/21 19:04 4 MG Allergies: Allergies: Allergies Coded Allergies Type Severity Reaction Last Updated Verified amoxicillin trihydrate Allergy Intermediate 03/20/18 Yes celecoxib Allergy Intermediate 10/15/14 Yes potassium clavulanate Allergy Intermediate 10/15/14 Yes I S O L A T I O N *CONTACT* Allergy Unknown 02/11/15 Yes Physical Exam: PE: Constitutional: Well developed, well nourished, no acute distress, non-toxic appearance. [] HENT: Normocephalic, atraumatic, bilateral external ears normal, oropharynx moist, no oral exudates, nose normal. [] Eyes: PERRLA, EOMI, conjunctiva normal, no discharge. [] Neck: Normal range of motion, no tenderness, supple, no stridor. [] Cardiovascular:Heart rate regular rhythm, no murmur [] Lungs & Thorax: Bilateral breath sounds clear to auscultation [] Abdomen: Bowel sounds normal, soft, no tenderness, no masses, no pulsatile masses. [] Skin: Warm, dry, no erythema, no rash. [] Back: No tenderness, no CVA tenderness. [] Extremities: No tenderness, no cyanosis, no clubbing, ROM intact, no edema. [] Neurologic: Alert and oriented X 3, normal motor function, normal sensory function, no focal deficits noted. [] Psychologic: Affect normal, judgement normal, mood normal. [] Current Patient Data: Labs: Laboratory Tests Test 02/13/21 20:56 Urine Collection Type U cath Urine Color Yellow Urine Clarity Clear Urine pH 6.0 (<5.0-8.0) Urine Specific [place] 1.015 (1.000-1.030) Urine Protein Negative mg/dL (NEG-TRACE) Urine Glucose (UA) Negative mg/dL (NEG) Urine Ketones (Stick) Negative mg/dL (NEG) Urine Blood Negative (NEG) Urine Nitrite Negative (NEG) Urine Bilirubin Negative (NEG) Urine Urobilinogen Dipstick 0.2 mg/dL (0.2 mg/dL) Urine Leukocyte Esterase Negative (NEG) Urine RBC 1-2 /HPF (0-2) Urine WBC Occ /HPF (0-4) Urine Squamous Epithelial Cells Mod /LPF Urine Amorphous Sediment Present /HPF Urine Bacteria Moderate /HPF (0-FEW) Vital Signs: Vital Signs Date Time Temp Pulse Resp B/P (MAP) Pulse Ox O2 Delivery O2 Flow Rate FiO2 02/13/21 21:46 76 20 139/60 (86) 96 Room Air 02/13/21 16:51 98.3 98.3 EKG: EKG: [] Radiology/Procedures: Radiology/Procedures: []PROCEDURE: CT LOWER EXTREMITY WO RIGHT EXAMINATION: CT LOWER RIGHT EXTREMITY WITHOUT CONTRAST, 02/13/2021 6:29 PM CLINICAL INDICATION: Pain, fall COMPARISON: CT abdomen pelvis 11/14/2020. Right hip radiograph 02/13/2021 TECHNIQUE: Helical CT imaging performed of the right hip without the use of intravenous contrast. Sagittal and coronal reformats were obtained. One or more of the following individualized dose reduction techniques were utilized for this examination: 1. Automated exposure control 2. Adjustment of the mA and/or kV according to patient size 3. Use of iterative reconstruction technique. FINDINGS: There is no acute fracture. There is mild degenerative joint disease of the right hip with mild joint space narrowing and small ring osteophyte. Mild enthesopathy at the right greater trochanter. There is mild degenerative joint disease of the pubic symphysis. Surgical changes of the bowel seen in the right lower quadrant. There is a fat-containing lateral abdominal wall hernia in the right lower quadrant.. IMPRESSION: No acute fracture. Electronically signed by: Eliza Beaulieu MD (02/13/2021 6:52 PM) [id number] DICTATED and SIGNED BY: ELIZA BEAULIEU MD DATE: 02/13/21 [id number] PROCEDURE: HIP RIGHT 2V WITH PELVIS XR BILATERAL HIP (WITH OR WITHOUT PELVIS) 2 VIEWS_RIGHT History: Reason: fall pain / Spl. Instructions: / History: Technique: AP view the pelvis and 2 additional views of the right hip. Comparison: September 24, [address] November 14, 2020 Findings: Normal alignment. No fracture. Heterotopic ossification adjacent to the right greater trochanter, unchanged. Linear sclerosis along the right lateral femoral neck related to marginal osteophyte is seen on prior CT. Moderate pubic symphysis DJD. Lower lumbar spondylosis. Mild bilateral hip DJD. Impression: 1. No acute osseous abnormality. 2. Bilateral hip DJD. Electronically signed by: Darinel Saha DO (02/13/2021 6:14 PM) [facility] DICTATED and SIGNED BY: DARINEL SAHA DO DATE: 02/13/21 [id number] 0 Course & Med Decision Making: Course & Med Decision Making Pertinent Labs and Imaging studies reviewed. (See chart for details) This is a 70-year-old female patient presented to the ED today with right hip pain after falling today. Right hip x-rays were negative for any acute findings, noted for DJD. Patient continues to complain about pain. CT of the right hip was done which was negative for any acute findings. Patient requesting to be admitted to the hospital. She states she is not able to bear full weight to the right lower extremity and cannot go home alone. Spoke with Dr. Sosa who accepted patient for admission Dragon Disclaimer: Carmenza Disclaimer: This electronic medical record was generated, in whole or in part, using a voice recognition dictation system. Departure Departure Impression: Primary Impression: Fall Qualified Codes: W19.XXXA - Unspecified fall, initial encounter Additional Impressions: Right hip pain Degenerative joint disease of right hip Qualified Codes: M16.11 - Unilateral primary osteoarthritis, right hip Disposition: ADMITTED INPATIENT Condition: STABLE Referrals: Aggie VILLA MD (PCP) JAKE SOTELO [employer] February 13, 2021 23:14
[2021-02-13 23:25] VITALS: BP 136/55
--- NOTE | 2021-02-13 23:25 | NUR ---
Pt arrives via gurney. Pt transferred onto bed without complications. Admission assessment complete. Vital signs stable. Admission requirements in progress. Pt laying in bed with call light in reach.
[2021-02-13] MEDS ORDERED: ONDANSETRON PF 4 MG/2 ML VIAL. IV PRN ×2 (23:30)
[2021-02-13] MEDS ORDERED: MORPHINE SULFATE 2 MG/ML VIAL. IV PRN (23:30)
[2021-02-13] MEDS ORDERED: AMMONIUM LACTATE 12% TOPICAL LOTION 225GM BOTTLE. TP PRN (23:30)
[2021-02-13 23:43] LABS: BASO % 0 % (0-3); EOS # 0.1 x10^3/uL (0.0-0.7); EOS % 3 % (0-3); HEMATOCRIT 31.6 % (36.0-47.0); HEMOGLOBIN 10.3 g/dL (12.0-15.5); LYMPH # 1.5 x10^3/uL (1.0-4.8); LYMPH % 26 % (24-48); MEAN CORPUSCULAR HEMOGLOBIN 31 pg (25-35); MEAN CORPUSCULAR HGB CONC 33 g/dL (31-37); MEAN CORPUSCULAR VOLUME 94 fL (79-100); MONO # 0.4 x10^3/uL (0.0-1.1); MONO % 7 % (0-9); NEUT # 3.7 x10^3/uL (1.8-7.7); NEUT % 64 % (31-73); PLATELET COUNT 136 x10^3/uL (140-400); RED BLOOD COUNT 3.35 x10^6/uL (3.50-5.40); RED CELL DISTRIBUTION WIDTH 15.5 % (11.5-14.5); WHITE BLOOD COUNT 5.8 x10^3/uL (4.0-11.0)
[2021-02-13 23:56] LABS: ALBUMIN 3.1 g/dL (3.4-5.0); ALBUMIN/GLOBULIN RATIO 0.8 (1.0-1.7); CALCIUM 8.3 mg/dL (8.5-10.1); CREATININE 0.9 mg/dL (0.6-1.0); GFR 62.3; POTASSIUM 4.8 mmol/L (3.5-5.1); TOTAL BILIRUBIN 0.7 mg/dL (0.2-1.0)
[2021-02-14] MEDS: traMADol 50 MG TABLET PO PRN ×2 (01:19→07:12)
[2021-02-14] MEDS: ACETAMINOPHEN 325 MG TABLET. PO PRN ×2 (01:19→07:11)
[2021-02-14 03:00] VITALS: BP 130/58
[2021-02-14] MEDS ORDERED: ALPRAZolam 0.5 MG TABLET PO PRN (04:15)
[2021-02-14] MEDS ORDERED: CALCIUM CARBONATE 500 MG TAB.CHEW PO PRN (04:15)
[2021-02-14] MEDS ORDERED: HEPARIN for SUB-Q USE 5,000 UNIT/ML VIAL. SQ SCH (06:00)
[2021-02-14] MEDS ORDERED: LEVOTHYROXINE 150 MCG TABLET PO SCH (06:00)
--- NOTE | 2021-02-14 06:32 | NUR ---
IP: Pt has a hx of + mrsa screens since 2005 with most recent in 07/2019. Recommend obtaining a current screen and then begin Nozin protocol.
[2021-02-14 07:00] VITALS: BP 128/55
--- NOTE | 2021-02-14 07:24 | PDOC1 ---
History and Physical Date of Admission Date of Admission DATE: 02/14/21 TIME: 07:06 Identification/Chief Complaint Chief Complaint Fall, right hip pain Source Source: Chart review, Patient History of Present Illness History of Present Illness Patient is 70-year-old obese female with past medical history hypertension, HLD, anxiety, depression who presents to the ED with complaints of right hip pain after a fall yesterday morning. She reportedly fell trying to get out of her car, landing on her right side. She denies any head injury or loss of consciousness. She reports right hip pain, 10/10, worse with weightbearing. X- ray admission showed bilateral hip DJD, and CT right hip showed no acute fracture. Due to inability to bear weight and ambulate, she was admitted for further medical management. Past Medical History Cardiovascular: CHF, HTN, Hyperlipidemia Pulmonary: Asthma, Pneumonia, Other CENTRAL NERVOUS SYSTEM: Periperal neuropathy GI: GERD Heme/Onc: Anemia NOS Hepatobiliary: Hep A/B/C Psych: Anxiety, Depression, Panic Musculoskeletal: low back pain Renal/: UTI, Other Endocrine: Hypothyroidism Past Surgical History Past Surgical History: , Hysterectomy, Other Family History Family History: Coronary Artery Disease, Diabetes, Hypertension Social History Smoke: No ALCOHOL: none Drugs: None Current Problem List Problem List Problems Medical Problems: (1) Degenerative joint disease of right hip Status: Acute (2) Fall Status: Acute (3) Right hip pain Status: Acute Current Medications Current Medications Current Medications Morphine Sulfate (Morphine Sulfate) 4 mg 1X ONCE IM Last administered on 02/13/21at 19:04; Start 02/13/21 at 18:45; Stop 02/13/21 at 18:46; Status DC Ondansetron HCl (Zofran) 4 mg PRN Q8HRS PRN IV NAUSEA/VOMITING 1ST CHOICE; Start 02/13/21 at 23:30; Stop 02/13/21 at 23:30; Status DC Morphine Sulfate (Morphine Sulfate) 2 mg PRN Q2HR PRN IV SEVERE PAIN 7-10; Start 02/13/21 at 23:30; Stop 02/14/21 at 23:29 Acetaminophen (Tylenol) 650 mg PRN Q4HRS PRN PO TEMP OVER 100.4F Last a dministered on 02/14/21at 01:19; Start 02/13/21 at 23:30 Lactic Acid (Lac-Hydrin) 1 jhoana PRN BID PRN TP DRY SKIN / SCALING; Start 02/13/21 at 23:30 Aspirin (Aspirin Chewable) 81 mg DAILY PO ; Start 02/14/21 at 09:00 Diclofenac Sodium (Voltaren) 1 jhoana BID TP ; Start 02/14/21 at 09:00 Docusate Sodium (Colace) 100 mg DAILY PO ; Start 02/14/21 at 09:00 Famotidine (Pepcid) 20 mg BID PO ; Start 02/14/21 at 09:00 Ferrous Sulfate (Feosol) 325 mg DAILY PO ; Start 02/14/21 at 09:00 Levothyroxine Sodium (Synthroid) 150 mcg DAILY06 PO Last administered on 02/14/21at 06:16; Start 02/14/21 at 06:00 Losartan Potassium (Cozaar) 50 mg DAILY PO ; Start 02/14/21 at 09:00 Metoprolol Succinate (Toprol Xl) 100 mg DAILY PO ; Start 02/14/21 at 09:00 Nystatin (Nystop) 1 jhoana BID TP ; Start 02/14/21 at 09:00 Pramipexole Dihydrochloride (miraPEX) 1 mg HS PO ; Start 02/14/21 at 21:00 Budesonide (Pulmicort) 0.5 mg RTBID NEB ; Start 02/14/21 at 08:00 Citalopram Hydrobromide (CeleXA) 40 mg DAILY PO ; Start 02/14/21 at 09:00 Magnesium Oxide (Magnesium Oxide) 400 mg BIDAC PO Last administered on 02/14/21at 06:16; Start 02/14/21 at 07:30 Psyllium Hydrophilic Mucilloid (Metamucil Fiber Packet) 1 pkt QODAY PO ; Start 02/15/21 at 09:00 Tramadol HCl (Ultram) 50 mg PRN Q6HRS PRN PO MODERATE PAIN 4-6 Last administered on 02/14/21at 01:19; Start 02/13/21 at 23:30 Ondansetron HCl (Zofran) 4 mg PRN Q4HRS PRN IV NAUSEA/VOMITING 1ST CHOICE; Start 02/13/21 at 23:30 Heparin Sodium (Porcine) (Heparin Sodium) 5,000 unit Q8HRS SQ Last administered on 02/14/21at 06:19; Start 02/14/21 at 06:00 Albuterol Sulfate (Ventolin Neb Soln) 2.5 mg RTQID NEB ; Start 02/14/21 at 08:00 Alprazolam (Xanax) 0.5 mg TID PRN PRN PO ANXIETY / AGITATION Last administered on 02/14/21at 04:16; Start 02/14/21 at 04:15 Calcium Carbonate/ Glycine (Tums) 500 mg PRN AFTMEALHC PRN PO INDIGESTION Last administered on 02/14/21at 04:16; Start 02/14/21 at 04:15 Active Scripts Active Hydrocodone-Acetamin 5-325 mg (Hydrocodone/Acetaminophen) 1 Each Tablet 1 Each PO Q6HRS 14 Days Tylenol (Acetaminophen) 325 Mg Tablet 650 Mg PO PRN Q4HRS PRN 30 Days Ammonium Lactate 226 Gm Lotion 1 Jhoana TP PRN BID PRN 30 Days Magnesium Oxide 400 Mg Tablet 400 Mg PO BIDAC 30 Days Alprazolam 0.5 Mg Tablet 0.5 Mg PO PRN TID PRN 6 Days Voltaren (Diclofenac Sodium) 100 Gm Gel..gram. 1 Jhoana TP BID 30 Days Reported Nystatin 15 Gm Powder 1 Jhoana TP BID 7 Days apply to affected area(s) Mirapex (Pramipexole Di-Hcl) 1 Mg Tablet 1 Mg PO HS Gabapentin 800 Mg Tablet 800 Mg PO TID Ferrous Sulfate 325 Mg Tablet 1 Tab PO DAILY Furosemide 40 Mg Tablet 1 Tab PO DAILY Synthroid (Levothyroxine Sodium) 200 Mcg Tablet 1 Tab PO DAILY Synthroid (Levothyroxine Sodium) 150 Mcg Tablet 1 Tab PO DAILY Hydrocodone-Apap 7.5-325 (Hydrocodone Bit/Acetaminophen) 1 Tab Tablet 1 Tab PO PRN Q6HRS PRN Losartan Potassium 50 Mg Tablet 50 Mg PO DAILY Metamucil (Psyllium Husk) 0.52 Gm Capsule 1 Cap PO QODAY 30 Days Colace (Docusate Sodium) 100 Mg Capsule 1 Cap PO DAILY 15 Days Aspirin 81 Mg Tab.chew 81 Mg PO DAILY Famotidine 20 Mg Tablet 20 Mg PO BID Symbicort 160-4.5 Mcg Inhaler (Budesonide/Formoterol Fumarate) 10.2 Gm Hfa.aer.a d 2 Puff IH BID Citalopram Hbr (Citalopram Hydrobromide) 40 Mg Tablet 40 Mg PO DAILY Metoprolol Succinate ( Xl ) (Metoprolol Succinate) 100 Mg Tab.er.24h 100 Mg PO DAILY Allergies Allergies: Coded Allergies: amoxicillin trihydrate (Verified Allergy, Intermediate, 03/20/18) HAS TOLERATED CTX celecoxib (Verified Allergy, Intermediate, 10/15/14) potassium clavulanate (Verified Allergy, Intermediate, 10/15/14) I S O L A T I O N *CONTACT* (Verified Allergy, Unknown, 02/11/15) mrsa + ROS Review of System GENERAL: No history of weight change, weakness or fevers. SKIN: No bruising, hair changes or rashes. EYES: No blurred, double or loss of vision. NOSE AND THROAT: No history of nosebleeds, hoarseness or sore throat. HEART: Denies chest pain, denies palpitations. LUNGS: Denies cough, hemoptysis, wheezing or shortness of breath. GASTROINTESTINAL: Denies nausea, vomiting, abdominal pain. GENITOURINARY: Denies dysuria, frequency, urgency, hematuria. NEUROLOGIC: Denies history of numbness, tingling, tremor or weakness. PSYCHIATRIC: Denies anxiety, denies depression. ENDOCRINE: No history of heat or cold intolerance, polyuria or polydipsia. EXTREMITIES: Right hip pain. Denies muscle weakness or stiffness. Physical Exam Physical Exam General: Morbidly obese. Alert, Oriented X3, Cooperative, mild distress HEENT: PERRLA, EOMI Lungs: Clear to auscultation, Normal air movement Heart: RRR, no murmurs Cardiovascular: S1, S2 Abdomen: Normal bowel sounds, Soft, No tenderness Extremities: No clubbing, No cyanosis Skin: No rashes, No significant lesion Neuro: Normal speech, Normal tone, Sensation intact Psych/Mental Status: Mental status NL, Mood NL Vitals Vitals Vital Signs Date Time Temp Pulse Resp B/P (MAP) Pulse Ox O2 Delivery O2 Flow Rate FiO2 02/14/21 03:00 98.0 71 20 130/58 (82) 95 Room Air 98.0 Labs Labs Laboratory Tests Test 02/13/21 20:56 02/13/21 23:30 Urine Collection Type U cath Urine Color Yellow Urine Clarity Clear Urine pH 6.0 (<5.0-8.0) Urine Specific [place] 1.015 (1.000-1.030) Urine Protein Negative mg/dL (NEG-TRACE) Urine Glucose (UA) Negative mg/dL (NEG) Urine Ketones (Stick) Negative mg/dL (NEG) Urine Blood Negative (NEG) Urine Nitrite Negative (NEG) Urine Bilirubin Negative (NEG) Urine Urobilinogen Dipstick 0.2 mg/dL (0.2 mg/dL) Urine Leukocyte Esterase Negative (NEG) Urine RBC 1-2 /HPF (0-2) Urine WBC Occ /HPF (0-4) Urine Squamous Epithelial Cells Mod /LPF Urine Amorphous Sediment Present /HPF Urine Bacteria Moderate /HPF (0-FEW) White Blood Count 5.8 x10^3/uL (4.0-11.0) Red Blood Count 3.35 x10^6/uL (3.50-5.40) Hemoglobin 10.3 g/dL (12.0-15.5) Hematocrit 31.6 % (36.0-47.0) Mean Corpuscular Volume 94 fL (79-100) Mean Corpuscular Hemoglobin 31 pg (25-35) Mean Corpuscular Hemoglobin Concent 33 g/dL (31-37) Red Cell Distribution Width 15.5 % (11.5-14.5) Platelet Count 136 x10^3/uL (140-400) Neutrophils (%) (Auto) 64 % (31-73) Lymphocytes (%) (Auto) 26 % (24-48) Monocytes (%) (Auto) 7 % (0-9) Eosinophils (%) (Auto) 3 % (0-3) Basophils (%) (Auto) 0 % (0-3) Neutrophils # (Auto) 3.7 x10^3/uL (1.8-7.7) Lymphocytes # (Auto) 1.5 x10^3/uL (1.0-4.8) Monocytes # (Auto) 0.4 x10^3/uL (0.0-1.1) Eosinophils # (Auto) 0.1 x10^3/uL (0.0-0.7) Basophils # (Auto) 0.0 x10^3/uL (0.0-0.2) Sodium Level 142 mmol/L (136-145) Potassium Level 4.8 mmol/L (3.5-5.1) Chloride Level 106 mmol/L (98-107) Carbon Dioxide Level 29 mmol/L (21-32) Anion Gap 7 (6-14) Blood Urea Nitrogen 20 mg/dL (7-20) Creatinine 0.9 mg/dL (0.6-1.0) Estimated GFR (Cockcroft-Gault) 62.3 BUN/Creatinine Ratio 22 (6-20) Glucose Level 88 mg/dL (70-99) Calcium Level 8.3 mg/dL (8.5-10.1) Total Bilirubin 0.7 mg/dL (0.2-1.0) Aspartate Amino Transf (AST/SGOT) 17 U/L (15-37) Alanine Aminotransferase (ALT/SGPT) 19 U/L (14-59) Alkaline Phosphatase 111 U/L (46-116) Total Protein 7.0 g/dL (6.4-8.2) Albumin 3.1 g/dL (3.4-5.0) Albumin/Globulin Ratio 0.8 (1.0-1.7) Laboratory Tests Test 02/13/21 20:56 02/13/21 23:30 Urine Collection Type U cath Urine Color Yellow Urine Clarity Clear Urine pH 6.0 (<5.0-8.0) Urine Specific [place] 1.015 (1.000-1.030) Urine Protein Negative mg/dL (NEG-TRACE) Urine Glucose (UA) Negative mg/dL (NEG) Urine Ketones (Stick) Negative mg/dL (NEG) Urine Blood Negative (NEG) Urine Nitrite Negative (NEG) Urine Bilirubin Negative (NEG) Urine Urobilinogen Dipstick 0.2 mg/dL (0.2 mg/dL) Urine Leukocyte Esterase Negative (NEG) Urine RBC 1-2 /HPF (0-2) Urine WBC Occ /HPF (0-4) Urine Squamous Epithelial Cells Mod /LPF Urine Amorphous Sediment Present /HPF Urine Bacteria Moderate /HPF (0-FEW) White Blood Count 5.8 x10^3/uL (4.0-11.0) Red Blood Count 3.35 x10^6/uL (3.50-5.40) Hemoglobin 10.3 g/dL (12.0-15.5) Hematocrit 31.6 % (36.0-47.0) Mean Corpuscular Volume 94 fL (79-100) Mean Corpuscular Hemoglobin 31 pg (25-35) Mean Corpuscular Hemoglobin Concent 33 g/dL (31-37) Red Cell Distribution Width 15.5 % (11.5-14.5) Platelet Count 136 x10^3/uL (140-400) Neutrophils (%) (Auto) 64 % (31-73) Lymphocytes (%) (Auto) 26 % (24-48) Monocytes (%) (Auto) 7 % (0-9) Eosinophils (%) (Auto) 3 % (0-3) Basophils (%) (Auto) 0 % (0-3) Neutrophils # (Auto) 3.7 x10^3/uL (1.8-7.7) Lymphocytes # (Auto) 1.5 x10^3/uL (1.0-4.8) Monocytes # (Auto) 0.4 x10^3/uL (0.0-1.1) Eosinophils # (Auto) 0.1 x10^3/uL (0.0-0.7) Basophils # (Auto) 0.0 x10^3/uL (0.0-0.2) Sodium Level 142 mmol/L (136-145) Potassium Level 4.8 mmol/L (3.5-5.1) Chloride Level 106 mmol/L (98-107) Carbon Dioxide Level 29 mmol/L (21-32) Anion Gap 7 (6-14) Blood Urea Nitrogen 20 mg/dL (7-20) Creatinine 0.9 mg/dL (0.6-1.0) Estimated GFR (Cockcroft-Gault) 62.3 BUN/Creatinine Ratio 22 (6-20) Glucose Level 88 mg/dL (70-99) Calcium Level 8.3 mg/dL (8.5-10.1) Total Bilirubin 0.7 mg/dL (0.2-1.0) Aspartate Amino Transf (AST/SGOT) 17 U/L (15-37) Alanine Aminotransferase (ALT/SGPT) 19 U/L (14-59) Alkaline Phosphatase 111 U/L (46-116) Total Protein 7.0 g/dL (6.4-8.2) Albumin 3.1 g/dL (3.4-5.0) Albumin/Globulin Ratio 0.8 (1.0-1.7) Images Images CT LOWER EXTREMITY WO RIGHT EXAMINATION: CT LOWER RIGHT EXTREMITY WITHOUT CONTRAST, 02/13/2021 6:29 PM CLINICAL INDICATION: Pain, fall COMPARISON: CT abdomen pelvis 11/14/2020. Right hip radiograph 02/13/2021 TECHNIQUE: Helical CT imaging performed of the right hip without the use of intravenous contrast. Sagittal and coronal reformats were obtained. One or more of the following individualized dose reduction techniques were utilized for this examination: 1. Automated exposure control 2. Adjustment of the mA and/or kV according to patient size 3. Use of iterative reconstruction technique. FINDINGS: There is no acute fracture. There is mild degenerative joint disease of the right hip with mild joint space narrowing and small ring osteophyte. Mild enthesopathy at the right greater trochanter. There is mild degenerative joint disease of the pubic symphysis. Surgical changes of the bowel seen in the right lower quadrant. There is a fat-containing lateral abdominal wall hernia in the right lower quadrant.. IMPRESSION: No acute fracture. HIP RIGHT 2V WITH PELVIS XR BILATERAL HIP (WITH OR WITHOUT PELVIS) 2 VIEWS_RIGHT History: Reason: fall pain / Spl. Instructions: / History: Technique: AP view the pelvis and 2 additional views of the right hip. Comparison: September 24, [address] November 14, 2020 Findings: Normal alignment. No fracture. Heterotopic ossification adjacent to the right greater trochanter, unchanged. Linear sclerosis along the right lateral femoral neck related to marginal osteophyte is seen on prior CT. Moderate pubic symphysis DJD. Lower lumbar spondylosis. Mild bilateral hip DJD. Impression: 1. No acute osseous abnormality. 2. Bilateral hip DJD. VTE Prophylaxis Ordered VTE Prophylaxis Devices: No VTE Pharmacological Prophylaxi: Yes Assessment/Plan Assessment/Plan Fall at home Degenerative joint disease Physical deconditioning Plan: Will consult PM&R for DJD Will provide pain management Resume home medications PT/OT At this time patient is refusing snf, as [facility] FEN - Cardiac diet PPX - Heparin FULL CODE Dispo - inpatient for above Advance Care Planning: Total time spent [id number] with patient greater than 17 minutes in discussion with goals of care, comfort care, end-of-life care, pain management, code status; patient names her sister as her surrogate decision maker. Justifications for Admission Other Justification UTI, JUANA GORDON MD February 14, 2021 07:24
[2021-02-14] MEDS ORDERED: MAGNESIUM OXIDE 400 MG TABLET PO SCH (07:30)
[2021-02-14] MEDS: ALBUTEROL SULFATE 2.5 MG/3 ML NEBU. NEB SCH ×2 (07:59→11:50)
[2021-02-14] MEDS ORDERED: BUDESONIDE 0.5 MG/2 ML NEBU. NEB SCH (08:00)
[2021-02-14] MEDS ORDERED: DICLOFENAC SODIUM 1% TOPICAL GEL 100GM TUBE. TP SCH (09:00)
[2021-02-14] MEDS ORDERED: METOPROLOL SUCC 24HR ER 100 MG TAB.ER.24H. PO SCH (09:00)
[2021-02-14] MEDS ORDERED: DOCUSATE SODIUM 100 MG CAPSULE. PO SCH (09:00)
[2021-02-14] MEDS ORDERED: LOSARTAN POTASSIUM 50 MG TABLET. PO SCH (09:00)
[2021-02-14] MEDS ORDERED: CITALOPRAM 20 MG TABLET. PO SCH (09:00)
[2021-02-14] MEDS ORDERED: ASPIRIN CHEWABLE 81 MG TABLET. PO SCH (09:00)
[2021-02-14] MEDS ORDERED: FERROUS SULFATE 325 MG TABLET. PO SCH (09:00)
[2021-02-14] MEDS ORDERED: NYSTATIN TOPICAL POWDER 15GM BOTTLE. TP SCH (09:00)
[2021-02-14] MEDS ORDERED: FAMOTIDINE 20 MG TABLET. PO SCH (09:00)
[2021-02-14] MEDS ORDERED: methylPREDNISolone ACETATE 40 MG/ML VIAL. IM ONE (09:45)
[2021-02-14] MEDS ORDERED: BUPIVACAINE MPF 0.25% 10 ML VIAL. IJ ONE (09:45)
[2021-02-14] MEDS ORDERED: methylPREDNISolone ACETATE 40 MG/ML VIAL. INJ ONE (09:45)
--- NOTE | 2021-02-14 09:52 | NUR ---
SW following. Discussed with RN, pt from home, room air, cardiac diet. Xrays negative. RN advised no SW needs at this time, Dr. Arriola plans on discharging pt home tomorrow (02/15/21). SW will continue to follow.
--- NOTE | 2021-02-14 10:10 | PDOC3 ---
Discharge Summary Visit Information Date of Admission: February 14, 2021 Date of Discharge: February 14, 2021 Final Diagnosis Problems Medical Problems: (1) Degenerative joint disease of right hip Status: Acute (2) Fall Status: Acute (3) Right hip pain Status: Acute Brief Hospital Course Allergies Allergies Coded Allergies Type Severity Reaction Last Updated Verified amoxicillin trihydrate Allergy Intermediate 03/20/18 Yes celecoxib Allergy Intermediate 10/15/14 Yes potassium clavulanate Allergy Intermediate 10/15/14 Yes I S O L A T I O N *CONTACT* Allergy Unknown 02/11/15 Yes Vital Signs Vital Signs Date Time Temp Pulse Resp B/P (MAP) Pulse Ox O2 Delivery O2 Flow Rate FiO2 02/14/21 08:46 77 128/55 02/14/21 08:00 92 Room Air 02/14/21 07:12 16 02/14/21 07:00 97.7 97.7 Lab Results Laboratory Tests Test 02/13/21 20:56 02/13/21 23:30 Urine Collection Type U cath Urine Color Yellow Urine Clarity Clear Urine pH 6.0 (<5.0-8.0) Urine Specific Sterling 1.015 (1.000-1.030) Urine Protein Negative mg/dL (NEG-TRACE) Urine Glucose (UA) Negative mg/dL (NEG) Urine Ketones (Stick) Negative mg/dL (NEG) Urine Blood Negative (NEG) Urine Nitrite Negative (NEG) Urine Bilirubin Negative (NEG) Urine Urobilinogen Dipstick 0.2 mg/dL (0.2 mg/dL) Urine Leukocyte Esterase Negative (NEG) Urine RBC 1-2 /HPF (0-2) Urine WBC Occ /HPF (0-4) Urine Squamous Epithelial Cells Mod /LPF Urine Amorphous Sediment Present /HPF Urine Bacteria Moderate /HPF (0-FEW) White Blood Count 5.8 x10^3/uL (4.0-11.0) Red Blood Count 3.35 x10^6/uL (3.50-5.40) Hemoglobin 10.3 g/dL (12.0-15.5) Hematocrit 31.6 % (36.0-47.0) Mean Corpuscular Volume 94 fL (79-100) Mean Corpuscular Hemoglobin 31 pg (25-35) Mean Corpuscular Hemoglobin Concent 33 g/dL (31-37) Red Cell Distribution Width 15.5 % (11.5-14.5) Platelet Count 136 x10^3/uL (140-400) Neutrophils (%) (Auto) 64 % (31-73) Lymphocytes (%) (Auto) 26 % (24-48) Monocytes (%) (Auto) 7 % (0-9) Eosinophils (%) (Auto) 3 % (0-3) Basophils (%) (Auto) 0 % (0-3) Neutrophils # (Auto) 3.7 x10^3/uL (1.8-7.7) Lymphocytes # (Auto) 1.5 x10^3/uL (1.0-4.8) Monocytes # (Auto) 0.4 x10^3/uL (0.0-1.1) Eosinophils # (Auto) 0.1 x10^3/uL (0.0-0.7) Basophils # (Auto) 0.0 x10^3/uL (0.0-0.2) Sodium Level 142 mmol/L (136-145) Potassium Level 4.8 mmol/L (3.5-5.1) Chloride Level 106 mmol/L (98-107) Carbon Dioxide Level 29 mmol/L (21-32) Anion Gap 7 (6-14) Blood Urea Nitrogen 20 mg/dL (7-20) Creatinine 0.9 mg/dL (0.6-1.0) Estimated GFR (Cockcroft-Gault) 62.3 BUN/Creatinine Ratio 22 (6-20) Glucose Level 88 mg/dL (70-99) Calcium Level 8.3 mg/dL (8.5-10.1) Total Bilirubin 0.7 mg/dL (0.2-1.0) Aspartate Amino Transf (AST/SGOT) 17 U/L (15-37) Alanine Aminotransferase (ALT/SGPT) 19 U/L (14-59) Alkaline Phosphatase 111 U/L (46-116) Total Protein 7.0 g/dL (6.4-8.2) Albumin 3.1 g/dL (3.4-5.0) Albumin/Globulin Ratio 0.8 (1.0-1.7) Laboratory Tests Test 02/13/21 20:56 02/13/21 23:30 Urine Collection Type U cath Urine Color Yellow Urine Clarity Clear Urine pH 6.0 (<5.0-8.0) Urine Specific Sterling 1.015 (1.000-1.030) Urine Protein Negative mg/dL (NEG-TRACE) Urine Glucose (UA) Negative mg/dL (NEG) Urine Ketones (Stick) Negative mg/dL (NEG) Urine Blood Negative (NEG) Urine Nitrite Negative (NEG) Urine Bilirubin Negative (NEG) Urine Urobilinogen Dipstick 0.2 mg/dL (0.2 mg/dL) Urine Leukocyte Esterase Negative (NEG) Urine RBC 1-2 /HPF (0-2) Urine WBC Occ /HPF (0-4) Urine Squamous Epithelial Cells Mod /LPF Urine Amorphous Sediment Present /HPF Urine Bacteria Moderate /HPF (0-FEW) White Blood Count 5.8 x10^3/uL (4.0-11.0) Red Blood Count 3.35 x10^6/uL (3.50-5.40) Hemoglobin 10.3 g/dL (12.0-15.5) Hematocrit 31.6 % (36.0-47.0) Mean Corpuscular Volume 94 fL (79-100) Mean Corpuscular Hemoglobin 31 pg (25-35) Mean Corpuscular Hemoglobin Concent 33 g/dL (31-37) Red Cell Distribution Width 15.5 % (11.5-14.5) Platelet Count 136 x10^3/uL (140-400) Neutrophils (%) (Auto) 64 % (31-73) Lymphocytes (%) (Auto) 26 % (24-48) Monocytes (%) (Auto) 7 % (0-9) Eosinophils (%) (Auto) 3 % (0-3) Basophils (%) (Auto) 0 % (0-3) Neutrophils # (Auto) 3.7 x10^3/uL (1.8-7.7) Lymphocytes # (Auto) 1.5 x10^3/uL (1.0-4.8) Monocytes # (Auto) 0.4 x10^3/uL (0.0-1.1) Eosinophils # (Auto) 0.1 x10^3/uL (0.0-0.7) Basophils # (Auto) 0.0 x10^3/uL (0.0-0.2) Sodium Level 142 mmol/L (136-145) Potassium Level 4.8 mmol/L (3.5-5.1) Chloride Level 106 mmol/L (98-107) Carbon Dioxide Level 29 mmol/L (21-32) Anion Gap 7 (6-14) Blood Urea Nitrogen 20 mg/dL (7-20) Creatinine 0.9 mg/dL (0.6-1.0) Estimated GFR (Cockcroft-Gault) 62.3 BUN/Creatinine Ratio 22 (6-20) Glucose Level 88 mg/dL (70-99) Calcium Level 8.3 mg/dL (8.5-10.1) Total Bilirubin 0.7 mg/dL (0.2-1.0) Aspartate Amino Transf (AST/SGOT) 17 U/L (15-37) Alanine Aminotransferase (ALT/SGPT) 19 U/L (14-59) Alkaline Phosphatase 111 U/L (46-116) Total Protein 7.0 g/dL (6.4-8.2) Albumin 3.1 g/dL (3.4-5.0) Albumin/Globulin Ratio 0.8 (1.0-1.7) Brief Hospital Course Ms. Sanders is a 70 old female who presented with fall at home, degenerative joint disease, right hip pain, physical deconditioning. All imaging was negative for acute fracture. Consultation was placed to PM&R for DJD, and she was treated with 2 injections. She refused [facility], as [facility] She was discharged home with family care. She was recommended to follow-up with her PCP within 5-7 days. Discharge Information Condition at Discharge: Stable Disposition/Orders: D/C to Home Scheduled Aspirin (Aspirin) 81 Mg Tab.chew, 81 MG PO DAILY for Heart Health, (Reported) Entered as Reported by: NANETTE AGUIAR on 08/08/19 1321 Last Action: Reviewed on 02/14/2135 by ALEXANDRA COLLAZO Budesonide/Formoterol Fumarate (Symbicort 160-4.5 Mcg Inhaler) 10.2 Gm Hfa.aer.ad, 2 PUFF IH BID, (Reported) Entered as Reported by: LORNA ZHOU on 10/03/13 0751 Last Action: Reviewed on 02/14/2135 by ALEXANDRA COLLAZO Citalopram Hydrobromide (Citalopram Hbr) 40 Mg Tablet, 40 MG PO DAILY, (Reported) Entered as Reported by: LORNA ZHOU on 10/03/13 0751 Last Action: Reviewed on 02/14/2135 by ALEXANDRA COLLAZO Diclofenac Sodium (Voltaren) 100 Gm Gel..gram., 1 LIZA TP BID for Osteoarthritis for 30 Days, #60 Ref 2 Prescribed by: EULALIA MILLS MD on 08/10/19 1357 Last Action: Reviewed on 02/14/2135 by ALEXANDRA COLLAZO Docusate Sodium (Colace) 100 Mg Capsule, 1 CAP PO DAILY for Constipation for 15 Days, #15 Ref 0 (Reported) Entered as Reported by: NANETTE AGUIAR on 08/08/19 132 Last Action: Reviewed on 02/14/2135 by ALEXANDRA COLLAZO Famotidine (Famotidine) 20 Mg Tablet, 20 MG PO BID for GERD, (Reported) Entered as Reported by: NANETTE AGUIAR on 08/08/19 132 Last Action: Reviewed on 02/14/2135 by ALEXANDRA COLLAZO Ferrous Sulfate (Ferrous Sulfate) 325 Mg Tablet, 1 TAB PO DAILY for anemia, #30 Ref 3 (Reported) Entered as Reported by: LINDSEY JOAQUIN on 09/23/20150 Last Action: Reviewed on 02/14/2135 by ALEXANDRA COLLAZO Furosemide (Furosemide) 40 Mg Tablet, 1 TAB PO DAILY for diuretic, #30 Ref 5 (Reported) Entered as Reported by: LINDSEY JOAQUIN on 09/23/20150 Gabapentin (Gabapentin) 800 Mg Tablet, 800 MG PO TID for NEUROGENIC PAIN, (Rep orted) Entered as Reported by: LINDSEY JOAQUIN on 09/23/20150 Last Action: Reviewed on 02/14/2135 by ALEXANDRA COLLAZO Hydrocodone/Acetaminophen (Hydrocodone-Acetamin 5-325 mg) 1 Each Tablet, 1 EACH PO Q6HRS for 14 Days, #20 Prescribed by: ISABEL LOPEZ D.O. on 11/14/202 Levothyroxine Sodium (Synthroid) 150 Mcg Tablet, 1 TAB PO DAILY for hypothyroid, #30 Ref 5 (Reported) Entered as Reported by: LINDSEY JOAQUIN on 09/23/20150 Last Action: Reviewed on 02/14/2135 by ALEXANDRA COLLAZO Levothyroxine Sodium (Synthroid) 200 Mcg Tablet, 1 TAB PO DAILY for hypothyroid, #30 Ref 5 (Reported) Entered as Reported by: LINDSEY JOAQUIN on 09/23/20 0151 Losartan Potassium (Losartan Potassium) 50 Mg Tablet, 50 MG PO DAILY for HYPERTENSION, (Reported) Entered as Reported by: Antwon Butler on 08/10/19 1619 Last Action: Reviewed on 02/14/2135 by ALEXANDRA COLLAZO Magnesium Oxide (Magnesium Oxide) 400 Mg Tablet, 400 MG PO BIDAC for Hypomagnesemia for 30 Days, #60 Prescribed by: EULALIA MILLS MD on 08/31/201258 Last Action: Reviewed on 02/14/2135 by ALEXANDRA COLLAZO Metoprolol Succinate (Metoprolol Succinate ( Xl )) 100 Mg Tab.er.24h, 100 MG PO DAILY, (Reported) Entered as Reported by: LORNA ZHOU on 10/03/13 0751 Last Action: Reviewed on 02/14/2135 by ALEXANDRA COLLAZO Nystatin (Nystatin) 15 Gm Powder, 1 LIZA TP BID for yeast for 7 Days, #1 Ref 0 (Reported) apply to affected area(s) Entered as Reported by: AIMEE SILVA on 10/26/202057 Last Action: Reviewed on 02/14/2135 by ALEXANDRA COLLAZO Pramipexole Di-Hcl (Mirapex) 1 Mg Tablet, 1 MG PO HS for restless leg, (Reported) Entered as Reported by: LINDSEY JOAQUIN on 09/23/20 0304 Last Action: Reviewed on 02/14/2135 by ALEXANDRA COLLAZO Psyllium Husk (Metamucil) 0.52 Gm Capsule, 1 CAP PO QODAY for contipation for 30 Days, #30 Ref 0 (Reported) Entered as Reported by: NANETTE AGUIAR on 08/08/19 1321 Last Action: Converted on 02/13/212328 by EULALIA MILLS MD Scheduled PRN Acetaminophen (Tylenol) 325 Mg Tablet, 650 MG PO PRN Q4HRS PRN for TEMP OVER 100.4F for 30 Days, #120 Prescribed by: EULALIA MILLS MD on 08/31/201258 Last Action: Continued on 02/13/212328 by EULALIA MILLS MD Alprazolam (Alprazolam) 0.5 Mg Tablet, 0.5 MG PO PRN TID PRN for ANXIETY / AGITATION for 6 Days, #15 Prescribed by: EULALIA MILLS MD on 08/31/201258 Last Action: Reviewed on 02/14/2135 by ALEXANDRA COLLAZO Ammonium Lactate (Ammonium Lactate) 226 Gm Lotion, 1 LIZA TP PRN BID PRN for DRY SKIN / SCALING for 30 Days, #1 Prescribed by: EULALIA MILLS MD on 08/31/201258 Last Action: Reviewed on 02/14/2135 by ALEXANDRA COLLAZO Hydrocodone Bit/Acetaminophen (Hydrocodone-Apap 7.5-325 ) 1 Tab Tablet, 1 TAB PO PRN Q6HRS PRN for PAIN, Ref 0 (Reported) Entered as Reported by: LINDSEY JOAQUIN on 09/23/20 0151 Last Action: Reviewed on 02/14/2135 by ALEXANDRA COLLAZO Justicifation of Admission Dx: Justifications for Admission: Justification of Admission Dx: N/A JUANA VENTURA MD February 14, 2021 10:10
[2021-02-14 11:00] VITALS: BP 156/74
--- NOTE | 2021-02-14 12:08 | NUR ---
PT DISCHARGING HOME WITH SELF CARE. DISCHARGE INSTRUCTIONS DISCUSSED. PT VERBALIZED UNDERSTANDING. ASSISTED TO WHEELCHAIR AND WAS SECURED IN CAR WITH SON.
[2021-02-14] MEDS ORDERED: MINERAL OIL/PETROLATUM TOPICAL CREAM 113GM JAR. TP SCH (21:00)
[2021-02-14] MEDS ORDERED: PRAMIPEXOLE 1 MG TABLET. PO SCH (21:00)
--- NOTE | 2021-02-15 07:56 | CONS ---
DATE OF CONSULTATION: 02/14/2021 ATTENDING PHYSICIAN: Dr. Sosa. REASON FOR CONSULTATION: The patient was seen at the request of Dr. Sosa for rehab evaluation. HISTORY OF PRESENT ILLNESS: This is a 70-year-old right-handed female known to me. The patient with morbid obesity, hypertension, hyperlipidemia, anxiety, depression, chronic lower back pain, admitted through the emergency room with complaint of right hip pain after a fall on the morning of 02/13/2021, trying to get out of the car and landed on the right side. The patient complains of right hip pain 10/10, worse with weightbearing. X-rays and CT scan failed to reveal any acute abnormality, revealed some degenerative changes in her hips and lumbar spine area. The patient also with known congestive heart failure, asthmatic bronchitis, pneumonia, peripheral neuropathy, gastroesophageal reflux disease, anemia, hepatitis A, B, C positive, panic attacks, urinary tract infection and hypothyroidism. She admits occasional urinary incontinence, status post hysterectomy, . FAMILY HISTORY: Coronary artery disease, diabetes and hypertension. ALLERGIES: SHE IS KNOWN ALLERGIC TO AMOXICILLIN TRIHYDRATE, CELEBREX AND POTASSIUM CLAVULANATE. SOCIAL HISTORY: She lives with her son, had 1 step to enter the house. She had a walker to walk. REVIEW OF SYSTEMS: The patient denies any numbness, tingling sensation in her lower extremities. She admits her back pain is better controlled, also admits some left knee pain and wants to go home. PHYSICAL EXAMINATION: GENERAL: Today revealed a middle-aged female. She is alert, oriented to time, place, person and circumstance, follows commands appropriately. NEUROLOGIC: Moves all 4 extremities voluntarily where she had 4+/5 grade muscle strength. She had no significant pain on range of motion of her hips, but she had painful limited movements of lumbar spine. Straight leg raising test is negative bilaterally. She had crepitus on range of motion of her knee joint and significant limitation of knee joint flexion. She had edema of her feet and legs with reddish discoloration of the skin over distal parts of both legs, right side worse than left side. She had equal perception of touch and pinprick sensation bilaterally. Deep tendon reflexes are decreased overall with absent knee and ankle jerks. She is independent rolling from side to side. I have not tested her transfers or ambulation skills at this time. She had tenderness to palpation over sacroiliac joint area and over the medial aspect of both knee joints with mild knee joint effusion. ASSESSMENT: A middle-aged female with chronic lower back pain from degenerative disk disease and degenerative joint disease of lumbar vertebrae without any clinical evidence of ongoing lumbar radiculopathy, mild degenerative joint disease of both hip joints without any significant hip joint pain, degenerative joint disease of both knees with painful left knee, morbid obesity, peripheral neuropathy, peripheral vascular disease, chronic venous insufficiency, hypertension, congestive heart failure, hyperlipidemia, asthmatic bronchitis, peripheral neuropathy, gastroesophageal reflux disease, anemia, hepatitis A, B, C positive, anxiety, depression, panic attacks, chronic lower back pain and hypothyroidism. RECOMMENDATION: At her request, I have injected painful left knee and also right sacroiliac joint under aseptic skin technique after skin preparation using alcohol swab with 4 mL of 0.25% Marcaine solution mixed with 2 mL of Depo-Medrol 40 mg per 1 mL solution under aseptic skin technique and she tolerated the procedure satisfactorily without any side effects to obtain her vascular boots to help ease some of her foot and leg edema and redness. She was advised an isometric strengthening exercise to her lower extremity muscle groups and physical modalities and stretching exercise to her lower back and use ice packs to the area of injection to her lower back for about 20 minutes a couple of times a day for the next couple of days. She was advised to come and see me for followup on an needed basis. Agree with plan for home when medically stable. Dr. Sosa and Flako, appreciate asking me to participate in the care of this interesting patient. I will be glad to see him for followup on an as needed basis. MANPREET/DIETER DR: Valentín TID: [id number] CC: Vicente Ventura
[2021-02-15] MEDS ORDERED: PSYLLIUM HUSK (SUGAR FREE) 1 PKT PACKET PO SCH (09:00)
== END 2021-02-14 12:10 | disposition home or self-care (01) ==
LOC: ER 16:42 → 4 NORTH 21:50 → INTOOBSV 21:50
PROVIDERS: ADMIT Internal Medicine; ATTEND Internal Medicine
DX: M16.11 Unilateral primary osteoarthritis, right hip (principal); M25.551 Pain in right hip; E78.5 Hyperlipidemia, unspecified; I11.0 Hypertensive heart disease with heart failure; I50.9 Heart failure, unspecified; J45.909 Unspecified asthma, uncomplicated; J18.9 Pneumonia, unspecified organism; E66.01 Morbid (severe) obesity due to excess calories; E03.9 Hypothyroidism, unspecified; F32.9 Major depressive disorder, single episode, unspecified; F41.0 Panic disorder [episodic paroxysmal anxiety]; E83.42 Hypomagnesemia; E78.00 Pure hypercholesterolemia, unspecified; K21.9 Gastro-esophageal reflux disease without esophagitis; G89.29 Other chronic pain; W01.0XXA Fall on same level from slipping, tripping and stumbling without subsequent striking against object, initial encounter; Y93.89 Activity, other specified; Y92.009 Unspecified place in unspecified non-institutional (private) residence as the place of occurrence of the external cause; Z79.82 Long term (current) use of aspirin; Z79.51 Long term (current) use of inhaled steroids; Z79.899 Other long term (current) drug therapy
CPT/HCPCS: 36415; 73502; 73700; 80053; 81001; 85025; 87086; 87641; 94640; 94760; 96372; 99285; G0378; J1644; J2270; J7613; J7626; 87077; 87186; G0379

== ENCOUNTER 2021-03-14 20:19 | Emergency (ER) | payer MEDICARE ==
[~2021-03-14] VITALS: Ht 157.5 cm; Wt 125.0 kg
[~2021-03-14 20:19] MED LIST changes: -OMEP40CA45 PO; +OMEP40CA7 PO
--- NOTE | 2021-03-15 00:52 | PHYS DOC ---
Past Medical History Past Medical History: Anxiety, Asthma, CHF, Depression, GERD, High Cholesterol, Hypertension, Hypothyroid, Hepatitis, MRSA, Pneumonia, UTI, Other Additional Past Medical Histor: HCV,periph neurop,L FOOT WOUND Past Surgical History: , Gastric Bypass, Hysterectomy, Oophorectomy, Tonsillectomy, Other Additional Past Surgical Histo: wrist,knee scope,rt carpqal tunnel Smoking Status: Never Smoker Alcohol Use: None Drug Use: None General Adult EDM: Chief Complaint: ANXIETY/PANIC ATTACK HPI: HPI: 62-year-old female with multiple medical comorbidities presents to the ED brought by EMS with complaints of " I want something for pain. I was confused I think you have UTI." Patient with multiple medical complaints stating that she hurts all over, her knees and legs are more swollen than normal, is noncompliant with her Lasix. Recently received second dose of covid vaccine and is worried it's causing her sxs. Patient's son whom pt lives with is present in ED, (patient consents to his/her/their knowledge and involvement in pts' medical care),-he was called while at work by patient's neighbor. He was informed she was walking on the street carrying a large piece of metal that she was trying to sell. He states she is confused and not acting appropriately. Has limited mobility given habitus and lymphedema, "she shouldn't be outside waking without a walker." Review of Systems: Review of Systems: Constitutional: Denies fever or chills. [] Eyes: Denies change in visual acuity. [] HENT: Denies nasal congestion or sore throat. [] Respiratory: Denies cough or shortness of breath. [] Cardiovascular: Denies chest pain or edema. [] GI: Denies abdominal pain, nausea, vomiting, bloody stools or diarrhea. [] : Denies dysuria or hematuria Musculoskeletal: Denies new back pain or CVA tenderness Integument: Denies rash or diaphoresis Neurologic: Denies headache, focal weakness or sensory changes. [] Endocrine: Denies polyuria or polydipsia. [] Lymphatic: Denies swollen glands. [] Psychiatric: Denies depression or anxiety. [] Heart Score: C/O Chest Pain: No Risk Factors: Risk Factors: DM, Current or recent (<one month) smoker, HTN, HLP, family hist ory of CAD, obesity. Risk Scores: Score 0 - 3: 2.5% MACE over next 6 weeks - Discharge Home Score 4 - 6: 20.3% MACE over next 6 weeks - Admit for Clinical Observation Score 7 - 10: 72.7% MACE over next 6 weeks - Early Invasive Strategies Allergies: Allergies: Allergies Coded Allergies Type Severity Reaction Last Updated Verified amoxicillin trihydrate Allergy Intermediate 03/20/18 Yes celecoxib Allergy Intermediate 10/15/14 Yes potassium clavulanate Allergy Intermediate 10/15/14 Yes I S O L A T I O N *CONTACT* Allergy Unknown 02/11/15 Yes Physical Exam: PE: Constitutional: Well developed, well nourished, no acute distress, non-toxic appearance. HENT: Normocephalic, atraumatic, Eyes: EOMI, conjunctiva normal, no discharge. Neck: Normal range of motion, supple, Cardiovascular: S1/2 present, regular rhythm Lungs & Thorax: Speaking in full sentences, bilateral equal chest rise, no tachypnea or increased work of breathing Abdomen: soft, no tenderness, Skin: Warm, dry, no erythema, no rash. [] Extremities: no cyanosis, chronic appearing bilateral equal lower extremity pitting edema with RLE ulcers (no erythema/rash) Neurologic: Alert and oriented X 3, normal motor function, normal sensory function, no focal deficits noted. [] Psychologic: Affect normal, judgement normal, mood normal. [] Current Patient Data: Vital Signs: Vital Signs Date Time Temp Pulse Resp B/P (MAP) Pulse Ox O2 Delivery O2 Flow Rate FiO2 03/14/21 22:32 97.9 82 18 142/98 (113) 96 Room Air 97.9 EKG: EKG: sinus rhythm 89 bpm, NAD, first degree avb 242 bpm, no T wave inversions, no ST elevations or ST depressions Radiology/Procedures: Radiology/Procedures: IMAGING REPORT Signed PATIENT: PILLO JEROME: [id number] : 1950 LOCATION: ER AGE: 70 SEX: F EXAM STATUS: REG ER ORD. PHYSICIAN: ROBBIN ALARCON DO REASON: confusion PROCEDURE: CHEST AP ONLY EXAMINATION: XR CHEST 1V CLINICAL HISTORY: Confusion EXAM DATE/TIME: 03/15/2021 1:14 AM COMPARISON: 12/30/2020 FINDINGS: Prominent patient rotation to the right somewhat limits evaluation. Lines, Tubes, and Devices: None. Cardiomediastinal Silhouette: Unchanged. Lungs and Pleura: No evidence of focal airspace consolidation or pleural effusion. Pulmonary vasculature unremarkable. Bones and Soft Tissues: No acute osseous abnormality. IMPRESSION: No evidence of acute cardiopulmonary abnormality or significant interval change. Electronically signed by: Cirilo Grover DO (03/15/2021 1:48 AM) [facility] DICTATED and SIGNED BY: CIRILO GROVER DO DATE: 03/15/21 [id number] Course & Med Decision Making: Course & Med Decision Making Pertinent Labs and Imaging studies reviewed. (See chart for details) Initial impression concerning for possible confusion versus delirium. Patient is able to recall all events today and states she remembers walking down the street with a piece of metal she was trying to sell. Patient does not appear delirious or confused myself. Patient w/steady gait. Unremarkable labs and urinalysis. Lower extremity swelling is chronic in nature and I encouraged Lasix complaints. Will discharge home with strict ED return precautions were given for head injury, syncope, difficulties breathing or neurologic deficits. Encouraged urgent outpatient follow-up with PMD and wound care. Life- threatening processes were considered but are low suspicion at this time, given history, physical exam and ED workup. Pt was educated on all prescription m edications and adverse effects. All patient's questions were answered and pt was stable at time of discharge. Life/limb-threatening differential includes but is not limited to, end organ damage/sepsis, trauma/abuse/neglect, neurologic deficit, alcohol/drug ingestion, toxidrome, suicidal/homicidal ideations plans or attempts, psychosis or mental illness resulting in self neglect and inability to care for self. I spoken with the patient and her caregivers. I explained the patient's condition, diagnoses and treatment plan based on the information available to me at this time. I have answered the patient and her caregiver's questions and addressed any concerns. The patient and her caregivers have a good understanding of patient's diagnosis, condition and treatment plan as can be expected at this point. Vital signs have been stable. Patient's condition is stable and appropriate for discharge from the emergency department. Patient will pursue further outpatient evaluation with primary care physician or other designated or consulting physician as outlined in the discharge instructions. The patient and/or caregivers are agreeable to this plan of care and follow-up instructions have been explained in detail. The patient and/or caregivers have received these instructions in written form and have expressed an understanding of the discharge instructions. The patient and/or caregivers are aware that any significant change of condition or worsening of symptoms should prompt immediate return to this or the closest emergency department or call to 1Joesph Herr Disclaimer: Carmenza Disclaimer: This electronic medical record was generated, in whole or in part, using a voice recognition dictation system. Departure Departure Impression: Primary Impression: Hypomagnesemia Additional Impressions: Normocytic anemia Bilateral edema of lower extremity Disposition: HOME / SELF CARE / HOMELESS Condition: STABLE Referrals: Aggie VILLA MD (PCP) Follow-up with your primary care physician in the next 3 to 5 days to repeat magnesium level Patient Instructions: Anemia, Nonspecific-Brief, Hypomagnesemia, Peripheral Edema Additional Instructions: FOLLOW UP WITH WOUND CARE: FOR DEFINITIVE MANAGEMENT lower extremity swelling [facility] [address], [address] [place] [address] AND FOLLOW UP WITH CARDIOLOGY: FOR DEFINITIVE MANAGEMENT [facility] [address] [place] [address] EMERGENCY DEPARTMENT GENERAL DISCHARGE INSTRUCTIONS Thank you for coming to [facility] Emergency Department (ED) today and trusting us with you care. We trust that you had a positive experience in our Emergency Department. If you wish to speak to the department management, you may call the Director at [phone]. YOUR FOLLOW UP INSTRUCTIONS ARE FOLLOWS: 1. Do you have a private Doctor? If you do not have a private doctor, please ask for a resource list of physicians or clinics that may be able to assist you with fol low up care. 2. The Emergency Physicain has interpreted your x-rays. The X-Ray specialist will also review them. If there is a change in the findings, you will be notified in 48 hours when at all possible. 3. A lab test or culture has been done, your results will be reviewed and you will be notified if you need a change in treatment. ADDITIONAL INSTRUCTIONS AND INFORMATION: 1. Your care today has been supervised by a physician who is specially trained in emergency care. Many problems require more than one evaluation for a complete diagnosis and treatment. We recommend that you schedule your follow up appointment as r ecommended to ensure complete treatment of you illness or injury. If you are unable to obtain follow up care and continue to have a problem, or if your condition worsens, we recommend that you return to the ED. 2. We are not able to safely determine your condition over the phone nor are we able to give sound medical advice over the phone. For these safety reasons, if you call for medical advice we will ask you to come to the ED for further evaluation. 3. If you have any questions regarding these discharge instructions please call the ED at [phone]. SAFETY INFORMATION: In the interest of safety, wellness, and injury prevention; we encourage you to wear your sealbelt, if you smoke; quite smoking, and we encourage family to use a protective helmet for bicycling and other sporting events that present an increased risk for head injury. IF YOUR SYMPTOMS WORSEN OR NEW SYMPTOMS DEVELOP, OR YOU HAVE CONCERNS ABOUT YOUR CONDITION; OR IF YOUR CONDITION WORSENS WHILE YOU ARE WAITING FOR YOUR FOLLOW UP APPOINTMENT; EITHER CONTACT YOUR PRIMARY CARE DOCTOR, THE PHYSICIAN WHOSE NAME AND NUMBER YOU WERE GIVEN, OR RETURN TO THE ED IMMEDIATELY. ROBBIN ALARCON DO Mar 15, 2021 00:52
[2021-03-15 00:58] LABS: BILIRUBIN,URINE NEGATIVE (NEG); CLARITY,URINE CLEAR; COLOR,URINE YELLOW; NITRITE,URINE NEGATIVE (NEG); PROTEIN,URINE NEGATIVE (NEG-TRACE); UROBILINOGEN,URINE 0.2 mg/dL (0.2 mg/dL)
[2021-03-15 01:11] LABS: BACTERIA,URINE FEW /HPF (0-FEW)
--- NOTE | 2021-03-15 01:50 | RAD ---
EXAMINATION: XR CHEST 1V CLINICAL HISTORY: Confusion EXAM DATE/TIME: 03/15/2021 1:14 AM COMPARISON: 12/30/2020 FINDINGS: Prominent patient rotation to the right somewhat limits evaluation. Lines, Tubes, and Devices: None. Cardiomediastinal Silhouette: Unchanged. Lungs and Pleura: No evidence of focal airspace consolidation or pleural effusion. Pulmonary vasculat ure unremarkable. Bones and Soft Tissues: No acute osseous abnormality. IMPRESSION: No evidence of acute cardiopulmonary abnormality or significant interval change. Electronically signed by: Cirilo Escalante DO (03/15/2021 1:48 AM) MIRYAM
[2021-03-15 01:51] LABS: BASO % 1 % (0-3); EOS # 0.2 x10^3/uL (0.0-0.7); EOS % 2 % (0-3); HEMATOCRIT 31.7 % (36.0-47.0); HEMOGLOBIN 10.1 g/dL (12.0-15.5); LYMPH # 1.5 x10^3/uL (1.0-4.8); LYMPH % 22 % (24-48); MEAN CORPUSCULAR HEMOGLOBIN 31 pg (25-35); MEAN CORPUSCULAR HGB CONC 32 g/dL (31-37); MEAN CORPUSCULAR VOLUME 96 fL (79-100); MONO # 0.4 x10^3/uL (0.0-1.1); MONO % 6 % (0-9); NEUT # 4.9 x10^3/uL (1.8-7.7); NEUT % 69 % (31-73); PLATELET COUNT 161 x10^3/uL (140-400); RED CELL DISTRIBUTION WIDTH 15.9 % (11.5-14.5)
[2021-03-15] MEDS ORDERED: ACETAMINOPHEN 325 MG TABLET. PO ONE (02:00)
[2021-03-15 02:10] LABS: CALCIUM 8.8 mg/dL (8.5-10.1); GFR 55.1; POTASSIUM 4.7 mmol/L (3.5-5.1)
[2021-03-15 02:17] LABS: ALBUMIN 3.2 g/dL (3.4-5.0); ALBUMIN/GLOBULIN RATIO 0.8 (1.0-1.7); TOTAL BILIRUBIN 0.3 mg/dL (0.2-1.0); TOTAL PROTEIN 7.2 g/dL (6.4-8.2)
--- NOTE | 2021-03-15 02:31 | EKG ---
[facility] [address] [place] [address] Test Date: 2021-03-15 Test Time: 01:03:11 Pat Name: PILLO JEROME Department: Room: Gender: F Tunnel Mucker: : 1950 Requested By: ROBBIN ALARCON Order Number: [id number] Reading MD: Measurements Intervals Rena Lara Rate: 89 P: 90 OR: 242 QRS: 34 QRSD: 78 T: 37 QT: 352 QTc: 435 Interpretive Statements SINUS RHYTHM PROLONGED OR INTERVAL ABNORMAL ECG RI6.02 No previous ECG available for comparison
[2021-03-15 02:57] VITALS: BP 168/85
[2021-03-15] MEDS ORDERED: MAGNESIUM SULFATE 2GM 50 ML IV ONE (03:00)
[2021-03-15] MEDS ORDERED: MAGNESIUM OXIDE 400 MG TABLET PO SCH (03:30)
== END 2021-03-15 03:33 | disposition home or self-care (01) ==
LOC: ER 20:19
DX: E83.42 Hypomagnesemia (principal); D64.9 Anemia, unspecified; R60.0 Localized edema; R07.89 Other chest pain; E78.00 Pure hypercholesterolemia, unspecified; I11.0 Hypertensive heart disease with heart failure; I50.9 Heart failure, unspecified; K21.9 Gastro-esophageal reflux disease without esophagitis; J45.909 Unspecified asthma, uncomplicated; E03.9 Hypothyroidism, unspecified; Z86.14 Personal history of Methicillin resistant Staphylococcus aureus infection; Z98.84 Bariatric surgery status; Z90.710 Acquired absence of both cervix and uterus; Z90.722 Acquired absence of ovaries, bilateral; Z88.1 Allergy status to other antibiotic agents; Z91.041 Radiographic dye allergy status; Z88.8 Allergy status to other drugs, medicaments and biological substances
CPT/HCPCS: 36415; 71045; 80053; 81001; 82550; 83735; 84484; 85025; 93005; 99285-25

== ENCOUNTER 2021-07-03 21:32 | Emergency (ER) | payer MEDICAID, MEDICARE ==
[~2021-07-03] VITALS: Ht 157.5 cm; Wt 134.0 kg
[~2021-07-03 21:32] MED LIST changes: +CLIN-94 PO; -CLIN300C9 PO; +POTA-121 PO
--- NOTE | 2021-07-03 22:20 | ED.ADGEN ---
Past Medical History Past Medical History: Anxiety, Asthma, CHF, Depression, GERD, High Cholesterol, Hypertension, Hypothyroid, Hepatitis, MRSA, Pneumonia, UTI, Other Additional Past Medical Histor: HCV,periph neurop,L FOOT WOUND Past Surgical History: , Gastric Bypass, Hysterectomy, Oophorectomy, Tonsillectomy, Other Additional Past Surgical Histo: wrist,knee scope,rt carpqal tunnel Smoking Status: Never Smoker Alcohol Use: None Drug Use: None General Adult EDM: Chief Complaint: LOWER EXT PAIN HPI: HPI: Patient is a 71 year old female coming in for chronic leg swelling and wounds. States she has had some bleeding from her right leg. The wounds are chronic and she has an appointment with the wound care clinic in 1.5 weeks. Is concerned because the wounds are getting worse. Saw her primary care recently but was not given antibiotics, has had cellulitis in her lower legs multiple times. Denies any systemic complaints. Review of Systems: Review of Systems: All other systems within normal limits except for as noted in the HPI Allergies: Allergies: Allergies Coded Allergies Type Severity Reaction Last Updated Verified amoxicillin trihydrate Allergy Intermediate 03/20/18 Yes celecoxib Allergy Intermediate 10/15/14 Yes potassium clavulanate Allergy Intermediate 10/15/14 Yes I S O L A T I O N *CONTACT* Allergy Unknown 02/11/15 Yes Physical Exam: PE: Constitutional: Well developed, well nourished, no acute distress, non-toxic appearance. [] HENT: Normocephalic, atraumatic, bilateral external ears normal, nose normal. [] Eyes: PERRLA, conjunctiva normal, no discharge. [] Neck: No rigidity, supple, no stridor. [] Cardiovascular: Regular rate and rhythm, brisk cap refill [] Lungs & Thorax: Non labored symmetric respirations, no tachypnea or respiratory distress [] Abdomen: Soft, nondistended. Skin: Warm, dry, no erythema, no rash. Several shallow open wounds on bilateral lower extremities with cobblestoning left tissue. Mild erythema. [] Back: Unremarkable Extremities: No deformities, range of motion grossly intact, 3+ lower extremity edema [] Neurologic: Alert and oriented X 3, no focal deficits noted. [] Psychologic: Affect normal, judgement normal, mood normal. [] Current Patient Data: Labs: Laboratory Tests Test 10/11/21 22:59 White Blood Count 7.1 x10^3/uL (4.0-11.0) Red Blood Count 3.80 x10^6/uL (3.50-5.40) Hemoglobin 11.7 g/dL (12.0-15.5) L Hematocrit 35.3 % (36.0-47.0) L Mean Corpuscular Volume 93 fL (79-100) Mean Corpuscular Hemoglobin 31 pg (25-35) Mean Corpuscular Hemoglobin Concent 33 g/dL (31-37) Red Cell Distribution Width 15.3 % (11.5-14.5) H Platelet Count 176 x10^3/uL (140-400) Neutrophils (%) (Auto) 72 % (31-73) Lymphocytes (%) (Auto) 18 % (24-48) L Monocytes (%) (Auto) 6 % (0-9) Eosinophils (%) (Auto) 3 % (0-3) Basophils (%) (Auto) 1 % (0-3) Neutrophils # (Auto) 5.1 x10^3/uL (1.8-7.7) Lymphocytes # (Auto) 1.3 x10^3/uL (1.0-4.8) Monocytes # (Auto) 0.4 x10^3/uL (0.0-1.1) Eosinophils # (Auto) 0.2 x10^3/uL (0.0-0.7) Basophils # (Auto) 0.0 x10^3/uL (0.0-0.2) Erythrocyte Sedimentation Rate 79 (0-25) H Sodium Level 140 mmol/L (136-145) Potassium Level 5.0 mmol/L (3.5-5.1) Chloride Level 103 mmol/L (98-107) Carbon Dioxide Level 29 mmol/L (21-32) Anion Gap 8 (6-14) Blood Urea Nitrogen 27 mg/dL (7-20) H Creatinine 1.1 mg/dL (0.6-1.0) H Estimated GFR (Cockcroft-Gault) 49.2 BUN/Creatinine Ratio 25 (6-20) H Glucose Level 102 mg/dL (70-99) H Lactic Acid Level 1.0 mmol/L (0.4-2.0) Calcium Level 9.0 mg/dL (8.5-10.1) Total Bilirubin 0.6 mg/dL (0.2-1.0) Aspartate Amino Transferase (AST) 28 U/L (15-37) Alanine Aminotransferase (ALT) 22 U/L (14-59) Alkaline Phosphatase 110 U/L (46-116) C-Reactive Protein, Quantitative 20.9 mg/L (0-3.3) H PL-Kyk-H-Type Natriuretic Peptide 381 pg/mL (0-124) H Total Protein 8.3 g/dL (6.4-8.2) H Albumin 3.3 g/dL (3.4-5.0) L Albumin/Globulin Ratio 0.7 (1.0-1.7) L Laboratory Tests 07/03/21 22:59 Laboratory Tests 07/03/21 22:59 Vital Signs: Vital Signs Date Time Temp Pulse Resp B/P (MAP) Pulse Ox O2 Delivery O2 Flow Rate FiO2 07/03/21 23:30 80 18 157/77 (103) 95 Room Air 07/03/21 22:18 98.9 98.9 EKG: EKG: [] Heart Score: C/O Chest Pain: No Risk Factors: Risk Factors: DM, Current or recent (<one month) smoker, HTN, HLP, family history of CAD, obesity. Risk Scores: Score 0 - 3: 2.5% MACE over next 6 weeks - Discharge Home Score 4 - 6: 20.3% MACE over next 6 weeks - Admit for Clinical Observation Score 7 - 10: 72.7% MACE over next 6 weeks - Early Invasive Strategies Radiology/Procedures: Radiology/Procedures: [] Course & Med Decision Making: Course & Med Decision Making Pertinent Labs and Imaging studies reviewed. (See chart for details) [] Dragon Disclaimer: Dragon Disclaimer: This electronic medical record was generated, in whole or in part, using a voice recognition dictation system. Departure Departure Impression: Primary Impression: Chronic ulcer of leg, limited to breakdown of skin Disposition: 01 HOME / SELF CARE / HOMELESS Condition: STABLE Referrals: Aggie VILLA MD (PCP) Patient Instructions: Wound Care, Qvaf-[id number] Scripts Doxycycline Hyclate (DOXYCYCLINE HYCLATE) 100 Mg Capsule 1 CAP PO BID for antibiotic for 7 Days, #14 CAP Prov: GENO BARRIOS MD 07/04/21 GENO BARRIOS MD Jul 03, 2021 22:20
[2021-07-03 23:08] LABS: BASO % 1 % (0-3); EOS # 0.2 x10^3/uL (0.0-0.7); EOS % 3 % (0-3); HEMATOCRIT 35.3 % (36.0-47.0); HEMOGLOBIN 11.7 g/dL (12.0-15.5); LYMPH # 1.3 x10^3/uL (1.0-4.8); LYMPH % 18 % (24-48); MEAN CORPUSCULAR HEMOGLOBIN 31 pg (25-35); MEAN CORPUSCULAR HGB CONC 33 g/dL (31-37); MEAN CORPUSCULAR VOLUME 93 fL (79-100); MONO # 0.4 x10^3/uL (0.0-1.1); MONO % 6 % (0-9); NEUT # 5.1 x10^3/uL (1.8-7.7); NEUT % 72 % (31-73); PLATELET COUNT 176 x10^3/uL (140-400); RED CELL DISTRIBUTION WIDTH 15.3 % (11.5-14.5); WHITE BLOOD COUNT 7.1 x10^3/uL (4.0-11.0)
[2021-07-03 23:18] LABS: CREATININE 1.1 mg/dL (0.6-1.0); GFR 49.2
[2021-07-03 23:23] LABS: ALBUMIN 3.3 g/dL (3.4-5.0); ALBUMIN/GLOBULIN RATIO 0.7 (1.0-1.7); C-REACTIVE PROTEIN 20.9 mg/L (0-3.3); TOTAL BILIRUBIN 0.6 mg/dL (0.2-1.0); TOTAL PROTEIN 8.3 g/dL (6.4-8.2)
[2021-07-04] MEDS ORDERED: DOXY100C3 PO (01:24)
[2021-07-04 03:00] VITALS: BP 146/61
== END 2021-07-04 03:40 | disposition home or self-care (01) ==
LOC: ER 21:32
DX: L97.921 Non-pressure chronic ulcer of unspecified part of left lower leg limited to breakdown of skin (principal); L97.911 Non-pressure chronic ulcer of unspecified part of right lower leg limited to breakdown of skin; J45.909 Unspecified asthma, uncomplicated; K21.9 Gastro-esophageal reflux disease without esophagitis; E78.00 Pure hypercholesterolemia, unspecified; E03.9 Hypothyroidism, unspecified; I11.0 Hypertensive heart disease with heart failure; I50.9 Heart failure, unspecified; Z86.14 Personal history of Methicillin resistant Staphylococcus aureus infection; Z90.710 Acquired absence of both cervix and uterus; Z90.722 Acquired absence of ovaries, bilateral; Z98.84 Bariatric surgery status; Z88.1 Allergy status to other antibiotic agents; Z91.041 Radiographic dye allergy status; Z88.8 Allergy status to other drugs, medicaments and biological substances
CPT/HCPCS: 36415; 80053; 83605; 83880; 85025; 85651; 86140; 99285-25

== ENCOUNTER 2021-10-31 12:04 | Inpatient (IN) | payer MEDICARE ==
[~2021-10-31] VITALS: Ht 157.5 cm; Wt 136.7 kg
[~2021-10-31 12:04] MED LIST changes: -CITA40TA5 PO; +CITA40TA6 PO; +CYCL10TA19 PO; -CYCL10TA2 PO; +DOXY100C3 PO; -LEVO500T8 PO; +LEVO500T9 PO
--- NOTE | 2021-10-31 13:22 | RAD ---
EXAM: Chest, 2 views. HISTORY: Shortness of breath. COMPARISON: 03/15/2021 FINDINGS: 2 views of the chest are obtained. There is stable right suprahilar opacity likely due to p rominent pulmonary vascular shadows or scarring. There is no consolidation, pleural effusion or pneum othorax. There is a stable prominent cardiac silhouette. IMPRESSION: Stable suspected chronic interstitial changes and cardiomegaly. Electronically signed by: Eli Edmond MD (10/31/2021 1:20 PM) [id number]
--- NOTE | 2021-10-31 13:45 | PHYS DOC ---
Past Medical History Past Medical History: Anxiety, Asthma, CHF, Depression, GERD, High Cholesterol, Hypertension, Hypothyroid, Hepatitis, MRSA, Pneumonia, UTI, Other Additional Past Medical Histor: HCV,periph neurop,L FOOT WOUND Past Surgical History: Other Additional Past Surgical Histo: wrist,knee scope,rt carpqal tunnel Smoking Status: Never Smoker Alcohol Use: None Drug Use: None General Adult EDM: Chief Complaint: SHORTNESS OF BREATH HPI: HPI: Patient is a 71 year old female who presents with 1 week of shortness of air especially when she is up and walking. She states she has not taken her Lasix 40 mg for quite some time due to her incontinence. She states she just cannot get up and walk around or move fast enough to get to the bathroom. Patient states for the last couple of weeks she has had right leg cellulitis that is open and weeping. Patient states that she had graduated from wound care. Patient got out of the wheelchair and into the bed which was very hard for her and she desatted into the 80s. He does not usually wear oxygen. She has a history of anxiety, asthma, CHF, depression, HCV, peripheral neuropathy, left foot wound, hypertension, hypothyroidism, GERD, high cholesterol, hepatitis, MRSA, pneumonia, UTI, borderline diabetes, former smoker in her teenage years. She is denying chest pain, syncope, dizziness, headache, vision change, new numbness or tingling, focal weakness, back pain, pain with urination, fever, cough, abdominal pain, nausea, vomiting, diarrhea. Patient is Covid vaccinated and has had her booster. Review of Systems: Review of Systems: Constitutional: Denies fever or chills. [] Eyes: Denies change in visual acuity. [] HENT: Denies nasal congestion or sore throat. [] Respiratory: Denies cough or +shortness of breath. [] Cardiovascular: Denies chest pain or + peripheral edema. [] GI: Denies abdominal pain, nausea, vomiting, bloody stools or diarrhea. [] : Denies dysuria. + Chronic incontinence [] Musculoskeletal: Denies back pain or joint pain. [] Integument: Denies rash. + Right lower leg cellulitis [] Neurologic: Denies headache, focal weakness or sensory changes. [] Endocrine: Denies polyuria or polydipsia. [] Lymphatic: Denies swollen glands. [] Psychiatric: Denies depression or anxiety. [] Heart Score: C/O Chest Pain: No HEART Score for Chest Pain: HEART Score for Chest Pain Response (Comments) Value History Slighlty/Non-Suspicious 0 ECG Nonspecific Repolarizatio 1 Age > 65 2 Risk Factors >3 Risk Factors or Hx CAD 2 Troponin < Normal Limit 0 Total 5 Risk Factors: Risk Factors: DM, Current or recent (<one month) smoker, HTN, HLP, family histo ry of CAD, obesity. Risk Scores: Score 0 - 3: 2.5% MACE over next 6 weeks - Discharge Home Score 4 - 6: 20.3% MACE over next 6 weeks - Admit for Clinical Observation Score 7 - 10: 72.7% MACE over next 6 weeks - Early Invasive Strategies Allergies: Allergies: Allergies Coded Allergies Type Severity Reaction Last Updated Verified amoxicillin trihydrate Allergy Intermediate 03/20/18 Yes celecoxib Allergy Intermediate 10/15/14 Yes potassium clavulanate Allergy Intermediate 10/15/14 Yes I S O L A T I O N *CONTACT* Allergy Unknown 02/11/15 Yes Physical Exam: PE: Constitutional: Well developed, well nourished, no acute distress, non-toxic appearance. [] HENT: Normocephalic, atraumatic, bilateral external ears normal, oropharynx moist, no oral exudates, nose normal. [] Eyes: PERRLA, EOMI, conjunctiva normal, no discharge. [] Neck: Normal range of motion, no tenderness, supple, no stridor. [] Cardiovascular:Heart rate regular rhythm, no murmur [] Lungs & Thorax: Bilateral upper breath sounds clear and lower diminished to auscultation [] Abdomen: Bowel sounds normal, soft, no tenderness, no masses, no pulsatile ma sses. [] Skin: Warm, dry, lower legs erythema, no rash. Right lower leg cellulitis open weeping [] Back: No tenderness, no CVA tenderness. [] Extremities: No tenderness, no cyanosis, no clubbing, ROM intact, bilateral lower 3+ edema. [] Neurologic: Alert and oriented X 3, normal motor function, normal sensory function, no focal deficits noted. [] Psychologic: Affect normal, judgement normal, mood normal. [] Current Patient Data: Vital Signs: Vital Signs Date Time Temp Pulse Resp B/P (MAP) Pulse Ox O2 Delivery O2 Flow Rate FiO2 10/31/21 12:11 98.5 63 24 153/76 (101) 99 Room Air 98.5 EKG: EK and read by Dr. Mauricio is a sinus rhythm, no STEMI. Radiology/Procedures: Radiology/Procedures: [] Impression: [facility] [address] [place] [address] IMAGING REPORT Signed PATIENT: PILLO JEROMEOUNT: [id number] : 1950 LOCATION: ER AGE: 71 SEX: F EXAM STATUS: PRE ER ORD. PHYSICIAN: ERMIAS MAURICIO DO REASON: SOB PROCEDURE: CHEST PA & LATERAL EXAM: Chest, 2 views. HISTORY: Shortness of breath. COMPARISON: 03/15/2021 FINDINGS: 2 views of the chest are obtained. There is stable right suprahilar opacity likely due to prominent pulmonary vascular shadows or scarring. There is no consolidation, pleural effusion or pneumothorax. There is a stable prominent cardiac silhouette. IMPRESSION: Stable suspected chronic interstitial changes and cardiomegaly. Electronically signed by: Eli Wiggins MD (10/31/2021 1:20 PM) [id number] DICTATED and SIGNED BY: ELI WIGGINS MD DATE: 10/31/21 [id number] Course & Med Decision Making: Course & Med Decision Making Pertinent Labs and Imaging studies reviewed. (See chart for details) COVID-19 CRITERIA: The patient was evaluated during the global COVID-19 pandemic, and that diagnosis was suspected/considered upon their initial presentation. Their evaluation, treatment and testing was consistent with current guidelines for patients who present with complaints or symptoms that may be related to COVID-19. See HPI. Alert and oriented x4. Ambulatory but she cannot go very far due to shortness of breath. Bilateral lower leg edema 3+. Right lower leg has cellulitis open and weeping. Lungs are clear in upper lobes and diminished in lower lobes. Speaks in full clear sentences. Afebrile. Patient is in CHF and she has cellulitis. She is admitted to Dr. Sosa. Dr. Riffel states to give 80 mg Lasix IV. [] Dragon Disclaimer: Dragon Disclaimer: This electronic medical record was generated, in whole or in part, using a voice recognition dictation system. COVID-19 Patient Risks: Age 65 or older: Yes Sign of co-morbidity: Yes Exp to person + for COVID: No Exp to PUI: No Travel from affected area: No Lower respiratory symptoms: Yes Fever: No Other: No PPE Use: Full PPE with N95 mask or PAPR: Yes Departure Departure Impression: Primary Impression: CHF exacerbation Qualified Codes: I50.9 - Heart failure, unspecified Additional Impression: Cellulitis Qualified Codes: L03.115 - Cellulitis of right lower limb Disposition: ADMITTED INPATIENT Admitting Physician: DULCE MARIA Condition: STABLE Referrals: Aggie VILLA MD (PCP) MIKAYLA HARRIS APRN Oct 31, 2021 13:45
[2021-10-31 13:46] LABS: BASO % 0 % (0-3); EOS # 0.1 x10^3/uL (0.0-0.7); EOS % 1 % (0-3); HEMATOCRIT 31.8 % (36.0-47.0); HEMOGLOBIN 10.1 g/dL (12.0-15.5); LYMPH # 1.4 x10^3/uL (1.0-4.8); LYMPH % 14 % (24-48); MEAN CORPUSCULAR HEMOGLOBIN 30 pg (25-35); MEAN CORPUSCULAR HGB CONC 32 g/dL (31-37); MEAN CORPUSCULAR VOLUME 95 fL (79-100); MONO # 0.5 x10^3/uL (0.0-1.1); MONO % 6 % (0-9); NEUT # 7.6 x10^3/uL (1.8-7.7); NEUT % 79 % (31-73); PLATELET COUNT 134 x10^3/uL (140-400); RED BLOOD COUNT 3.36 x10^6/uL (3.50-5.40); RED CELL DISTRIBUTION WIDTH 17.9 % (11.5-14.5); WHITE BLOOD COUNT 9.6 x10^3/uL (4.0-11.0)
[2021-10-31 13:58] LABS: CALCIUM 8.3 mg/dL (8.5-10.1); CREATININE 1.3 mg/dL (0.6-1.0); GFR 40.6; POTASSIUM 5.3 mmol/L (3.5-5.1)
[2021-10-31] MEDS ORDERED: cefTRIAXone IV Push 1 GM VIAL. IVP ONE (14:00)
[2021-10-31] MEDS ORDERED: VANCOMYCIN 2 GM in IV NORMAL SALINE 500ML BAG 500 ML IV ONE (14:00)
[2021-10-31 14:05] LABS: ALBUMIN 2.9 g/dL (3.4-5.0); ALBUMIN/GLOBULIN RATIO 0.5 (1.0-1.7); TOTAL BILIRUBIN 0.4 mg/dL (0.2-1.0); TOTAL PROTEIN 8.3 g/dL (6.4-8.2)
[2021-10-31] MEDS ORDERED: FUROSEMIDE 100 MG/10 ML VIAL. IVP ONE (14:45)
--- NOTE | 2021-10-31 15:22 | PDOC1 ---
History and Physical Date of Admission Date of Admission DATE: 10/31/21 TIME: 15:19 Identification/Chief Complaint Chief Complaint Shortness of breath Source Source: Patient History of Present Illness History of Present Illness Ms Sanders is a 71 year old female w/ PMHx hepatitis C, anxiety with depression, asthma, GERD, HLD, HTN, hypothyroidism, chronic CHF, chronic LE wounds who presents to ED c/o 1 week of progressively worsening shortness of breath. She has but does not take Lasix, notes she can't get up to get to the bathroom and has wet herself often. She becomes short of breath even moving from her wheelchair to get to the bathroom. Is rather sedentary at baseline. She notes worsening swelling of her right leg worse than her left with circumferential redness and some serous drainage. In ED moving from sitting she notably desaturates to 86% and was placed on NCO2. She denies any chest pain, dizziness, headache, new numbness or tingling, focal neuro deficits, pain with urination, fever, cough, abdominal pain, nausea, vomiting, diarrhea. No travel or recent sick contacts. Covid vaccinated and has had her booster. WBC 9.6, Hb 10.1, platelets 134, NA 143, K5.38, BUN 29, CR 1.3, glucose 105, calcium 8.3, bilirubin 0.4, AST 7, ALT 11, alk phos 107, NT proBNP 5038, high- sensitivity troponin is 11, albumin is 2.9, lactic acid is 1.1, magnesium is 1.4, rapid COVID-19 is negative. ABG PaO2 59 Chest radiograph with interstitial opacities and cardiomegaly. EKG sinus rhythm. Admitted for further care. Past Medical History Cardiovascular: CHF, HTN, Hyperlipidemia Pulmonary: Asthma, Pneumonia, Other CENTRAL NERVOUS SYSTEM: Periperal neuropathy GI: GERD Heme/Onc: Anemia NOS Hepatobiliary: Hep A/B/C Psych: Anxiety, Depression, Panic Musculoskeletal: low back pain Renal/: UTI, Other Endocrine: Hypothyroidism Past Surgical History Past Surgical History: , Hysterectomy, Other Family History Family History: Coronary Artery Disease, Diabetes, Hypertension Social History Smoke: Quit ALCOHOL: none Drugs: None Current Problem List Problem List Problems Medical Problems: (1) Cellulitis Status: Acute (2) CHF exacerbation Status: Acute Current Medications Current Medications Current Medications Vancomycin HCl (Vanco Per Pharmacy) 1 each PRN DAILY PRN MC SEE COMMENTS; Start 10/31/21 at 14:00 Ceftriaxone Sodium (Rocephin) 1 gm 1X ONCE IVP Last administered on 10/31/21at 13:58; Start 10/31/21 at 14:00; Stop 10/31/21 at 14:01; Status DC Vancomycin HCl 2 gm/Sodium Chloride 500 ml @ 250 mls/hr 1X ONCE IV Last administered on 10/31/21at 14:04; Start 10/31/21 at 14:00; Stop 10/31/21 at 15:59 Furosemide (Lasix) 80 mg 1X ONCE IVP Last administered on 10/31/21at 15:05; Start 10/31/21 at 14:45; Stop 10/31/21 at 14:46; Status DC Active Scripts Active Doxycycline Hyclate 100 Mg Capsule 1 Cap PO BID 7 Days Hydrocodone-Acetamin 5-325 mg (Hydrocodone/Acetaminophen) 1 Each Tablet 1 Each PO Q6HRS 14 Days Tylenol (Acetaminophen) 325 Mg Tablet 650 Mg PO PRN Q4HRS PRN 30 Days Ammonium Lactate 226 Gm Lotion 1 Jhoana TP PRN BID PRN 30 Days Magnesium Oxide 400 Mg Tablet 400 Mg PO BIDAC 30 Days Alprazolam 0.5 Mg Tablet 0.5 Mg PO PRN TID PRN 6 Days Voltaren (Diclofenac Sodium) 100 Gm Gel..gram. 1 Jhoana TP BID 30 Days Reported Nystatin 15 Gm Powder 1 Jhoana TP BID 7 Days apply to affected area(s) Mirapex (Pramipexole Di-Hcl) 1 Mg Tablet 1 Mg PO HS Gabapentin 800 Mg Tablet 800 Mg PO TID Ferrous Sulfate 325 Mg Tablet 1 Tab PO DAILY Furosemide 40 Mg Tablet 1 Tab PO DAILY Synthroid (Levothyroxine Sodium) 150 Mcg Tablet 1 Tab PO DAILY Losartan Potassium 50 Mg Tablet 50 Mg PO DAILY Metamucil (Psyllium Husk) 0.52 Gm Capsule 1 Cap PO QODAY 30 Days Colace (Docusate Sodium) 100 Mg Capsule 1 Cap PO DAILY 15 Days Aspirin 81 Mg Tab.chew 81 Mg PO DAILY Famotidine 20 Mg Tablet 20 Mg PO BID Symbicort 160-4.5 Mcg Inhaler (Budesonide/Formoterol Fumarate) 10.2 Gm Hfa.aer.ad 2 Puff IH BID Citalopram Hbr (Citalopram Hydrobromide) 40 Mg Tablet 40 Mg PO DAILY Metoprolol Succinate ( Xl ) (Metoprolol Succinate) 100 Mg Tab.er.24h 100 Mg PO DAILY Allergies Allergies: Coded Allergies: amoxicillin trihydrate (Verified Allergy, Intermediate, 03/20/18) HAS TOLERATED CTX celecoxib (Verified Allergy, Intermediate, 10/15/14) potassium clavulanate (Verified Allergy, Intermediate, 10/15/14) I S O L A T I O N *CONTACT* (Verified Allergy, Unknown, 02/11/15) mrsa + ROS General: YES: Fatigue, Malaise; No: Chills, Night Sweats, Appetite, Other PSYCHOLOGICAL ROS: YES: Anxiety; No: Behavioral Disorder, Concentration difficultie, Decreased libido, Depression, Disorientation, Hallucinations, Hostility, Irritablity, Memory difficulties, Mood Swings, Obsessive thoughts, Physical abuse, Sexual abuse, Sleep disturbances, Suicidal ideation, Other Eyes: No Blurry vision, No Decreased vision, No Double vision, No Dry eyes, No Excessive tearing, No Eye Pain, No Itchy Eyes, No Loss of vision, No Photophob ia, No Scotomata, No Uses contacts, No Uses glasses, No Other HEENT: No: Heacaches, Visual Changes, Hearing change, Nasal congestion, Nasal discharge, Oral lesions, Sinus pain, Sore Throat, Epistaxis, Sneezing, Snoring, Tinnitus, Vertigo, Vocal changes, Other ALLERGY AND IMMUNOLOGY: No: Hives, Insect Bite Sensitivity, Itchy/Watery Eyes, Nasal Congestion, Post Nasal Drip, Seasonal Allergies, Other Hematological and Lymphatic: No: Bleeding Problems, Blood Clots, Blood Transfusions, Brusing, Night Sweats, Pallor, Swollen Lymph Nodes, Other ENDOCRINE: No: Breast Changes, Galactorrhea, Hair Pattern Changes, Hot Flashes, Malaise/lethargy, Mood Swings, Palpitations, Polydipsia/polyuria, Skin Changes, Temperature Intolerance, Unexpected Weight Changes, Other Breast: No New/Changing Breast Lumps, No Nipple changes, No Nipple discharge, No Other Respiratory: YES: Cough, Shortness of breath, SOB with excertion, Tachypnea; No: Hemoptysis, Orthopnea, Pleuritic Pain, Sputum Changes, Stridor, Wheezing, Other Cardiovascular: yes Orthopnea, yes Paroxysmal Noc. Dyspnea, yes Edema; No Chest Pain, No Palpitations, No Lt Headedness, No Other Gastrointestinal: No Nausea, No Vomiting, No Abdominal Pain, No Diarrhea, No Constipation, No Melena, No Hematochezia, No Other Genitourinary: No Dysuria, No Frequency, No Incontinence, No Hematuria, No Retention, No Discharge, No Urgency, No Pain, No Flank Pain, No Other, No , No , No , No , No , No , No Musculoskeletal: Yes Gait Disturbance, Yes Muscular Weakness; No Joint Pain, No Joint Stiffness, No Joint Swelling, No Muscle Pain, No Pain In:, No Swelling In:, No Other Neurological: No Behavorial Changes, No Bowel/Bladder ControlChng, No Confusion, No Dizziness, No Gait Disturbance, No Headaches, No Impaired Coord/balance, No Memory Loss, No Numbness/Tingling, No Seizures, No Speech Problems, No Tremors, No Visual Changes, No Weakness, No Other Skin: Yes Rash, Yes Skin Lesion Changes; No Dry Skin, No Eczema, No Hair Changes, No Lumps, No Mole Changes, No Mottling, No Nail Changes, No Pruritus, No Other, No Acne Physical Exam General: Alert, Oriented X3, Cooperative, mild distress HEENT: Atraumatic, PERRLA, EOMI, Mucous membr. moist/pink Lungs: Other (bibasilar crackles) Heart: S1S2, RRR, no thrills, no rubs, no gallops, no murmurs Abdomen: Normal bowel sounds, Soft, No tenderness, No hepatosplenomegaly, No masses Rectal Exam: not examined Extremities: No clubbing, No cyanosis, Other (2+ edema) Skin: Other (Breakdown of right leg. Right leg circumferential lower leg redness, warmth, weeping 4x8cm) Neuro: Normal gait, Normal speech, Strength at 5/5 X4 ext, Normal tone, Sensation intact, Cranial nerves 3-12 NL, Reflexes 2+ Psych/Mental Status: Mental status NL, Mood NL Vitals Vitals Vital Signs Date Time Temp Pulse Resp B/P (MAP) Pulse Ox O2 Delivery O2 Flow Rate FiO2 10/31/21 12:11 98.5 63 24 153/76 (101) 99 Room Air 98.5 Labs Labs Laboratory Tests Test 2/8/22 13:30 White Blood Count 9.6 x10^3/uL (4.0-11.0) Red Blood Count 3.36 x10^6/uL (3.50-5.40) Hemoglobin 10.1 g/dL (12.0-15.5) Hematocrit 31.8 % (36.0-47.0) Mean Corpuscular Volume 95 fL (79-100) Mean Corpuscular Hemoglobin 30 pg (25-35) Mean Corpuscular Hemoglobin Concent 32 g/dL (31-37) Red Cell Distribution Width 17.9 % (11.5-14.5) Platelet Count 134 x10^3/uL (140-400) Neutrophils (%) (Auto) 79 % (31-73) Lymphocytes (%) (Auto) 14 % (24-48) Monocytes (%) (Auto) 6 % (0-9) Eosinophils (%) (Auto) 1 % (0-3) Basophils (%) (Auto) 0 % (0-3) Neutrophils # (Auto) 7.6 x10^3/uL (1.8-7.7) Lymphocytes # (Auto) 1.4 x10^3/uL (1.0-4.8) Monocytes # (Auto) 0.5 x10^3/uL (0.0-1.1) Eosinophils # (Auto) 0.1 x10^3/uL (0.0-0.7) Basophils # (Auto) 0.0 x10^3/uL (0.0-0.2) Sodium Level 143 mmol/L (136-145) Potassium Level 5.3 mmol/L (3.5-5.1) Chloride Level 107 mmol/L (98-107) Carbon Dioxide Level 29 mmol/L (21-32) Anion Gap 7 (6-14) Blood Urea Nitrogen 29 mg/dL (7-20) Creatinine 1.3 mg/dL (0.6-1.0) Estimated GFR (Cockcroft-Gault) 40.6 BUN/Creatinine Ratio 22 (6-20) Glucose Level 105 mg/dL (70-99) Lactic Acid Level 1.1 mmol/L (0.4-2.0) Calcium Level 8.3 mg/dL (8.5-10.1) Magnesium Level 1.4 mg/dL (1.8-2.4) Total Bilirubin 0.4 mg/dL (0.2-1.0) Aspartate Amino Transf (AST/SGOT) 7 U/L (15-37) Alanine Aminotransferase (ALT/SGPT) 11 U/L (14-59) Alkaline Phosphatase 107 U/L (46-116) Troponin I High Sensitivity 11 ng/L (4-50) UK-Jog-Q-Type Natriuretic Peptide 5038 pg/mL (0-124) Total Protein 8.3 g/dL (6.4-8.2) Albumin 2.9 g/dL (3.4-5.0) Albumin/Globulin Ratio 0.5 (1.0-1.7) SARS-CoV-2 Antigen (Rapid) Negative (NEGATIVE) Laboratory Tests Test 10/31/21 13:30 White Blood Count 9.6 x10^3/uL (4.0-11.0) Red Blood Count 3.36 x10^6/uL (3.50-5.40) Hemoglobin 10.1 g/dL (12.0-15.5) Hematocrit 31.8 % (36.0-47.0) Mean Corpuscular Volume 95 fL (79-100) Mean Corpuscular Hemoglobin 30 pg (25-35) Mean Corpuscular Hemoglobin Concent 32 g/dL (31-37) Red Cell Distribution Width 17.9 % (11.5-14.5) Platelet Count 134 x10^3/uL (140-400) Neutrophils (%) (Auto) 79 % (31-73) Lymphocytes (%) (Auto) 14 % (24-48) Monocytes (%) (Auto) 6 % (0-9) Eosinophils (%) (Auto) 1 % (0-3) Basophils (%) (Auto) 0 % (0-3) Neutrophils # (Auto) 7.6 x10^3/uL (1.8-7.7) Lymphocytes # (Auto) 1.4 x10^3/uL (1.0-4.8) Monocytes # (Auto) 0.5 x10^3/uL (0.0-1.1) Eosinophils # (Auto) 0.1 x10^3/uL (0.0-0.7) Basophils # (Auto) 0.0 x10^3/uL (0.0-0.2) Sodium Level 143 mmol/L (136-145) Potassium Level 5.3 mmol/L (3.5-5.1) Chloride Level 107 mmol/L (98-107) Carbon Dioxide Level 29 mmol/L (21-32) Anion Gap 7 (6-14) Blood Urea Nitrogen 29 mg/dL (7-20) Creatinine 1.3 mg/dL (0.6-1.0) Estimated GFR (Cockcroft-Gault) 40.6 BUN/Creatinine Ratio 22 (6-20) Glucose Level 105 mg/dL (70-99) Lactic Acid Level 1.1 mmol/L (0.4-2.0) Calcium Level 8.3 mg/dL (8.5-10.1) Magnesium Level 1.4 mg/dL (1.8-2.4) Total Bilirubin 0.4 mg/dL (0.2-1.0) Aspartate Amino Transf (AST/SGOT) 7 U/L (15-37) Alanine Aminotransferase (ALT/SGPT) 11 U/L (14-59) Alkaline Phosphatase 107 U/L (46-116) Troponin I High Sensitivity 11 ng/L (4-50) UC-Fly-P-Type Natriuretic Peptide 5038 pg/mL (0-124) Total Protein 8.3 g/dL (6.4-8.2) Albumin 2.9 g/dL (3.4-5.0) Albumin/Globulin Ratio 0.5 (1.0-1.7) SARS-CoV-2 Antigen (Rapid) Negative (NEGATIVE) Images Images Chest radiograph: 2 views of the chest are obtained. There is stable right suprahilar opacity likely due to prominent pulmonary vascular shadows or scarring. There is no consolidation, pleural effusion or pneumothorax. There is a stable prominent cardiac silhouette. IMPRESSION: Stable suspected chronic interstitial changes and cardiomegaly. VTE Prophylaxis Ordered VTE Prophylaxis Devices: No VTE Pharmacological Prophylaxi: Yes Assessment/Plan Assessment/Plan Acute respiratory failure with hypoxia - CHF exacerbation due to lasix compliance difficulties. Will f/u COVID 19 results. This is less likely pneumonia or bronchitis given progressive history. Acute diastolic CHF - will diurese. Consult Cardiology Hyperkalemia - likely nutritional with CKD, will place on low K diet CKD 2 - will monitor renal function Right leg cellulitis - mild, will given IV vancomycin and rocephin, likely can de-escalate to PO keflex and doxycycline in the next 48 hours Moderate-severe protein calorie malnutrition - nonprofit director to see Hypomagnesemia - will replace IV, monitor. Likely nutritional vs diuretic induced Anemia - likely of chronic disease. Will check iron levels Thrombocytopenia - no clear etiology. Will monitor Super morbid obesity - counseled on lifestyle modification H/o hepatitis C - undetectable virus in 2013 Anxiety with depression - cont home meds Asthma - prn nebs GERD -PPI HLD - statin HTN - cont home meds Hypothyroidism - cont home meds Chronic LE wounds - wound care to see. FEN - Renal diet PPX - lovenox FULL CODE Dispo - inpatient Justifications for Admission Other Justification UTI, AMS KATHRYNFEEULALIA King MD Oct 31, 2021 15:22
[2021-10-31] MEDS ORDERED: MAGNESIUM SULFATE 2GM 50 ML IV ONE ×2 (15:30)
[2021-10-31] MEDS: VANCOMYCIN PER PHARMACY MC PRN (16:33)
--- NOTE | 2021-10-31 16:37 | NUR ---
Pharmacy Vancomycin Dosing Note S: Consulted to monitor and dose vancomycin started 10/31/21. O: PILLO JEROME is a 71 year old F with Cellulitis, Pneumonia Other Antibiotics: 10/31 CEFTRIAXONE X1 IN ED LABS: Last BUN: 29 Last Creatinine: 1.3 Creatinine Clearance: 54 mL/min Last WBC: 9.6 Tmax (past 24 hours): 98.5 Vancomycin Dosing: Dosing Weight: Actual Target Trough: 10-20 A: Based on: VANCO DOSING CALCULATOR P: 1. Begin Vancomycin 2000mg LOAD dose, then 1750 mg IV q24h 2. Follow up Trough level on 11/02/21 at 1330 3. Pharmacy will continue to monitor, follow and adjust therapy as needed. [facility] GALEANA, [facility], 10/31/21 [id number]
[2021-10-31 16:47] LABS: BILIRUBIN,URINE NEGATIVE (NEG); CLARITY,URINE CLEAR; COLOR,URINE YELLOW; NITRITE,URINE POSITIVE (NEG); PH,URINE 6.5 (<5.0-8.0); PROTEIN,URINE NEGATIVE (NEG-TRACE); UROBILINOGEN,URINE 0.2 mg/dL (0.2 mg/dL)
[2021-10-31 16:56] LABS: BASE EXCESS COOX 2 mmol/L (-3-3); HCO3 COOX 28 mmol/L (21-28); METHEMOGLOBIN 0.2 % (0.0-1.9); OXYHEMOGLOBIN 88.9 %; PCO2 COOX 46 mmHg (35-46); PO2 COOX 59 mmHg (65-108); SAT O2 COOX 89 % (92-99)
[2021-10-31 17:18] LABS: BACTERIA,URINE FEW /HPF (0-FEW); RBC,URINE 0 /HPF (0-2)
[2021-10-31 19:37] VITALS: BP 156/87
[2021-10-31] MEDS ORDERED: LOSA100T14 PO (20:11)
[2021-10-31] MEDS ORDERED: LEVO200T PO (20:11)
[2021-10-31] MEDS: NYSTATIN TOPICAL POWDER 15GM BOTTLE. TP SCH (21:00)
[2021-10-31] MEDS: DICLOFENAC SODIUM 1% TOPICAL GEL 100GM TUBE. TP SCH ×2 (22:00→22:38)
[2021-10-31 22:27] VITALS: BP 132/60
[2021-10-31] MEDS: FAMOTIDINE 20 MG TABLET. PO SCH (22:37)
[2021-10-31] MEDS: PRAMIPEXOLE 1 MG TABLET. PO SCH (22:37)
[2021-11-01] MEDS: POLYETHYLENE GLYCOL 3350 17 GM PACKET. PO SCH ×2 (00:30→08:47)
[2021-11-01] MEDS ORDERED: SENNOSIDES/DOCUSATE 8.6/50MG TABLET. PO PRN (00:30)
[2021-11-01] MEDS: PSYLLIUM HUSK (SUGAR FREE) 1 PKT PACKET PO SCH ×2 (00:30→20:53)
[2021-11-01 02:19] VITALS: BP 119/49
[2021-11-01 05:50] LABS: CALCIUM 8.3 mg/dL (8.5-10.1); CREATININE 1.3 mg/dL (0.6-1.0); GFR 40.6; MAGNESIUM 1.4 mg/dL (1.8-2.4); POTASSIUM 4.5 mmol/L (3.5-5.1)
[2021-11-01] MEDS: LEVOTHYROXINE 100 MCG TABLET PO SCH (05:53)
[2021-11-01 07:00] VITALS: BP 126/58
--- NOTE | 2021-11-01 07:16 | EKG ---
[facility] [address] [place] [address] Test Date: 2021-10-31 Test Time: 13:48:13 Pat Name: PILLO JEROME Department: Room: Gender: F Storeroom Supervisor: : 1950 Requested By: MIKAYLA HARRIS Order Number: [id number] Reading MD: Measurements Intervals [place] Rate: 0 P: ND: QRS: 0 QRSD: 0 T: 0 QT: 0 QTc: 0 Interpretive Statements IRREGULAR RHYTHM, NO P-WAVE FOUND VENTRICULAR PREMATURE COMPLEX(ES) T ABNORMALITY IN ANTERIOR LEADS PROLONGED QT ABNORMAL ECG RI6.02 Compared to ECG 10/31/2021 12:23:25 Prolonged QT interval now present Sinus rhythm no longer present T-wave abnormality still present
--- NOTE | 2021-11-01 07:30 | PDOC2 ---
CARDIAC CONSULT DATE OF CONSULT Date of Consult DATE: 11/01/21 TIME: 07:19 REASON FOR CONSULT Reason for Consult: CHF exac REFERRING PHYSICIAN Referring Physician: Sheila SOURCE Source: Chart review, Patient HISTORY OF PRESENT ILLNESS HISTORY OF PRESENT ILLNESS This is a pleasant 71 yo female admitted for complains of shortness of breath. This has been ongoing in the last 2 weeks. She stopped taking her lasix as she is incontinent and does not like using depends. Her last lasix has been probably a month. Has had leg swelling and leg pain to both side. Denies any chest pain or palpitations. No fever or chills. She is vaccinated for covid-19. She has CHEKO but has not been using her CPAP as she gets uncomfortable with it. PAST MEDICAL HISTORY Past Medical History Cardiovascular: HTN, diastolic CHF, Pulmonary: Asthma, Bronchitis, COPD, Pneumonia CENTRAL NERVOUS SYSTEM: Peripheral neuropathy, RLS GI: GERD Heme/Onc: Anemia NOS Hepatobiliary: Hep C Psych: Anxiety, Depression Musculoskeletal: Osteoarthritis, bilateral bakers cysts Renal/: Chronic renal insuff, nephrolithiasis Endocrine: Hypothyroidism PAST SURGICAL HISTORY Past Surgical History Breast Biopsy, Cholecystectomy, Tubal Ligation, Hysterectomy, Other (right carpal tunnel syndrome release) FAMILY HISTORY Family History: Coronary Artery Disease, Diabetes SOCIAL HISTORY Smoke: No ALCOHOL: none Drugs: None Lives: with Family CURRENT MEDICATIONS CURRENT MEDICATIONS Current Medications Medications (Trade) Dose Ordered Sig/Doris Route PRN Reason Start Time Stop Time Status Last Admin Dose Admin Vancomycin HCl (Vanco Per Pharmacy) 1 each PRN DAILY PRN MC SEE COMMENTS 10/31/21 14:00 10/31/21 16:33 Ceftriaxone Sodium (Rocephin) 1 gm 1X ONCE IVP 10/31/21 14:00 10/31/21 14:01 DC 10/31/21 13:58 Vancomycin HCl 2 gm/Sodium Chloride 500 ml @ 250 mls/hr 1X ONCE IV 10/31/21 14:00 10/31/21 15:59 DC 10/31/21 14:04 Furosemide (Lasix) 80 mg 1X ONCE IVP 10/31/21 14:45 10/31/21 14:46 DC 10/31/21 15:05 Magnesium Sulfate 50 ml @ 25 mls/hr 1X ONCE IV 10/31/21 15:30 10/31/21 17:29 DC 10/31/21 17:35 Nystatin (Nystop) 1 soham BID TP 10/31/21 21:00 10/31/21 21:00 Famotidine (Pepcid) 20 mg BID PO 10/31/21 22:00 10/31/21 22:37 Pramipexole Dihydrochloride (miraPEX) 1 mg HS PO 10/31/21 22:00 10/31/21 22:37 Levothyroxine Sodium (Synthroid) 200 mcg DAILY06 PO 11/01/21 06:00 11/01/21 05:53 ALLERGIES ALLERGIES: Coded Allergies: amoxicillin trihydrate (Verified Allergy, Intermediate, 03/20/18) HAS TOLERATED CTX celecoxib (Verified Allergy, Intermediate, 10/15/14) potassium clavulanate (Verified Allergy, Intermediate, 10/15/14) I S O L A T I O N *CONTACT* (Verified Allergy, Unknown, 02/11/15) mrsa + ROS Review of System 14 point ROS evaluated with pertinent positives noted per HPI PHYSICAL EXAM General: Alert, Oriented X3, Cooperative, No acute distress HEENT: Atraumatic, Mucous membr. moist/pink Lungs: Other (basilar crackles) Abdomen: Soft, Other (obese) Extremities: No cyanosis, Other (2-3+ bilateral LE pitting edema) Skin: Other (mild erythema to bilateral florez) Neuro: Normal speech, Sensation intact Psych/Mental Status: Mental status NL, Mood NL MUSCULOSKELETAL: Osteoarthritic changes both hands VITALS/I&O VITALS/I&O: Vital Signs Date Time Temp Pulse Resp B/P (MAP) Pulse Ox O2 Delivery O2 Flow Rate FiO2 11/01/21 02:19 98.2 60 22 119/49 (72) 96 Nasal Cannula 2.0 98.2 I & O 10/31/21 10/31/21 11/01/21 14:59 22:59 06:59 Intake Total 1100 ml Output Total 2300 ml 2000 ml Balance -2300 ml -900 ml LABS Lab: Laboratory Tests Test 10/31/21 13:30 10/31/21 16:30 10/31/21 16:54 10/31/21 20:27 White Blood Count 9.6 x10^3/uL (4.0-11.0) Red Blood Count 3.36 x10^6/uL (3.50-5.40) L Hemoglobin 10.1 g/dL (12.0-15.5) L Hematocrit 31.8 % (36.0-47.0) L Mean Corpuscular Volume 95 fL (79-100) Mean Corpuscular Hemoglobin 30 pg (25-35) Mean Corpuscular Hemoglobin Concent 32 g/dL (31-37) Red Cell Distribution Width 17.9 % (11.5-14.5) H Platelet Count 134 x10^3/uL (140-400) L Neutrophils (%) (Auto) 79 % (31-73) H Lymphocytes (%) (Auto) 14 % (24-48) L Monocytes (%) (Auto) 6 % (0-9) Eosinophils (%) (Auto) 1 % (0-3) Basophils (%) (Auto) 0 % (0-3) Neutrophils # (Auto) 7.6 x10^3/uL (1.8-7.7) Lymphocytes # (Auto) 1.4 x10^3/uL (1.0-4.8) Monocytes # (Auto) 0.5 x10^3/uL (0.0-1.1) Eosinophils # (Auto) 0.1 x10^3/uL (0.0-0.7) Basophils # (Auto) 0.0 x10^3/uL (0.0-0.2) Sodium Level 143 mmol/L (136-145) Potassium Level 5.3 mmol/L (3.5-5.1) H Chloride Level 107 mmol/L (98-107) Carbon Dioxide Level 29 mmol/L (21-32) Anion Gap 7 (6-14) Blood Urea Nitrogen 29 mg/dL (7-20) H Creatinine 1.3 mg/dL (0.6-1.0) H Estimated GFR (Cockcroft-Gault) 40.6 BUN/Creatinine Ratio 22 (6-20) H Glucose Level 105 mg/dL (70-99) H Lactic Acid Level 1.1 mmol/L (0.4-2.0) Calcium Level 8.3 mg/dL (8.5-10.1) L Magnesium Level 1.4 mg/dL (1.8-2.4) L Total Bilirubin 0.4 mg/dL (0.2-1.0) Aspartate Amino Transferase (AST) 7 U/L (15-37) L Alanine Aminotransferase (ALT) 11 U/L (14-59) L Alkaline Phosphatase 107 U/L (46-116) Troponin I High Sensitivity 11 ng/L (4-50) BD-Rjo-B-Type Natriuretic Peptide 5038 pg/mL (0-124) H Total Protein 8.3 g/dL (6.4-8.2) H Albumin 2.9 g/dL (3.4-5.0) L Albumin/Globulin Ratio 0.5 (1.0-1.7) L SARS-CoV-2 (PCR) Not detected (NOT DETECTD) SARS-CoV-2 Antigen (Rapid) Negative (NEGATIVE) Urine Collection Type Unknown Urine Color Yellow Urine Clarity Clear Urine pH 6.5 (<5.0-8.0) Urine Specific [place] 1.010 (1.000-1.030) Urine Protein Negative mg/dL (NEG-TRACE) Urine Glucose (UA) Negative mg/dL (NEG) Urine Ketones (Stick) Negative mg/dL (NEG) Urine Blood Negative (NEG) Urine Nitrite Positive (NEG) Urine Bilirubin Negative (NEG) Urine Urobilinogen Dipstick 0.2 mg/dL (0.2 mg/dL) Urine Leukocyte Esterase Negative (NEG) Urine RBC 0 /HPF (0-2) Urine WBC 1-4 /HPF (0-4) Urine Squamous Epithelial Cells Occ /LPF Urine Bacteria Few /HPF (0-FEW) O2 Saturation 89 % (92-99) L Arterial Blood pH 7.39 (7.35-7.45) Arterial Blood pCO2 at Patient Temp 46 mmHg (35-46) Arterial Blood pO2 at Patient Temp 59 mmHg (65-108) L Arterial Blood HCO3 28 mmol/L (21-28) Arterial Blood Base Excess 2 mmol/L (-3-3) Oxyhemoglobin 88.9 % Methemoglobin 0.2 % (0.0-1.9) Carbon Monoxide, Quantitative 0.2 % (0.0-1.9) FiO2 21%/ room air Glucose (Fingerstick) 79 mg/dL (70-99) Test 11/01/21 04:50 Sodium Level 140 mmol/L (136-145) Potassium Level 4.5 mmol/L (3.5-5.1) Chloride Level 102 mmol/L (98-107) Carbon Dioxide Level 31 mmol/L (21-32) Anion Gap 7 (6-14) Blood Urea Nitrogen 27 mg/dL (7-20) H Creatinine 1.3 mg/dL (0.6-1.0) H Estimated GFR (Cockcroft-Gault) 40.6 Glucose Level 110 mg/dL (70-99) H Calcium Level 8.3 mg/dL (8.5-10.1) L Magnesium Level 1.4 mg/dL (1.8-2.4) L Iron Level 44 ug/dL (50-170) L Total Iron Binding Capacity 339 ug/dL (250-450) Iron Saturation 13 % (15-34) L Laboratory Tests 10/31/21 13:30 Laboratory Tests 10/31/21 13:30 11/01/21 04:50 ECHOCARDIOGRAM ECHOCARDIOGRAM <Conclusion> The left ventricular systolic function is normal and the ejection fraction is within normal range. The Ejection Fraction is 55-60%. There is normal LV segmental wall motion. Technically difficult study DATE: 08/04/19 1494 ASSESSMENT/PLAN ASSESSMENT/PLAN 1. Acute on chronic diastolic CHF: partly due to lasix noncompliance 2. Hx of Asthma with obstructive sleep apnea: noncompliant 3. Hypomagnesemia 4. Morbid obesity 5. HTN 6. Hypothyroidism 7. CKD3 8. Murmur: 9. Bilateral leg pain and edema Recommendations Will need outpt MPI Secondary prevention measures TTE, FLP, TSH, venous and arterial LE doppler Lasix therapy, replace Mg. discussed CPAP and lasix compliance December 05Saturday at 2PM LA LEWIS APRN Nov 01, 2021 07:30
[2021-11-01] MEDS: VANCOMYCIN PER PHARMACY MC PRN (07:37)
[2021-11-01] MEDS: ALBUTEROL SULFATE 2.5 MG/3 ML NEBU. NEB SCH ×4 (08:00→21:15)
[2021-11-01] MEDS: BUDESONIDE 0.5 MG/2 ML NEBU. NEB SCH ×2 (08:00→21:15)
[2021-11-01 08:40] LABS: CHOLESTEROL/HDL RATIO 2.5
[2021-11-01] MEDS: FAMOTIDINE 20 MG TABLET. PO SCH ×2 (08:45→20:49)
[2021-11-01] MEDS: DOCUSATE SODIUM 100 MG CAPSULE. PO SCH (08:45)
[2021-11-01] MEDS: LACTOBACILLUS RHAMNOSUS GG 1 CAPSULE. PO SCH ×2 (08:45→21:00)
[2021-11-01] MEDS: METOPROLOL SUCC 24HR ER 100 MG TAB.ER.24H. PO SCH (08:46)
[2021-11-01] MEDS: LOSARTAN POTASSIUM 50 MG TABLET. PO SCH (08:46)
[2021-11-01] MEDS: ASPIRIN CHEWABLE 81 MG TABLET. PO SCH (08:46)
[2021-11-01] MEDS: CITALOPRAM 20 MG TABLET. PO SCH (08:46)
[2021-11-01] MEDS: GABAPENTIN 400 MG CAPSULE. PO SCH ×3 (08:46→20:48)
[2021-11-01] MEDS: FERROUS SULFATE 325 MG TABLET. PO SCH (08:47)
[2021-11-01] MEDS: HYDROcodone/APAP 5/325MG 1 TAB TABLET PO PRN ×3 (08:50→21:01)
[2021-11-01] MEDS: DICLOFENAC SODIUM 1% TOPICAL GEL 100GM TUBE. TP SCH ×2 (08:50→20:53)
[2021-11-01] MEDS: NYSTATIN TOPICAL POWDER 15GM BOTTLE. TP SCH ×2 (08:51→20:53)
[2021-11-01] MEDS: cefTRIAXone IV Push 1 GM VIAL. IVP SCH (08:51)
[2021-11-01] MEDS ORDERED: FUROSEMIDE 40 MG/4 ML VIAL. IVP SCH (09:00)
[2021-11-01] MEDS ORDERED: NON FORMULARY ITEM (Budesonide/Formoterol Fumarate (Symbicort 160-4.5 Mcg Inhaler) 2 PUFF) IH SCH (09:00)
[2021-11-01] MEDS ORDERED: MAGNESIUM SULFATE 4GM 100 ML IV ONE (09:00)
[2021-11-01] MEDS ORDERED: FUROSEMIDE 40 MG/4 ML VIAL. IVP ONE (09:15)
--- NOTE | 2021-11-01 09:15 | EKG ---
[facility] [address] [place] [address] Test Date: 2021-11-01 Test Time: 09:09:44 Pat Name: PILLO JEROME Department: Room: [facility] Gender: F [employer] Tender: FRANCI : 1950 Requested By: LA LEWIS Order Number: [id number] Reading MD: Kaleb Hutson MD Measurements Intervals [place] Rate: 84 P: 62 VA: 192 QRS: 36 QRSD: 80 T: 27 QT: 348 QTc: 414 Interpretive Statements SINUS RHYTHM Electronically Signed On 11-06-2021 9:58:24 BUCKET WASH OPERATOR by Kaleb Hutson MD
--- NOTE | 2021-11-01 10:46 | PDOC ---
[employer] PROGRESS NOTE Date of Service DOS: DATE: 11/01/21 TIME: 10:44 Chief Complaint Chief Complaint Acute respiratory failure with hypoxia - CHF exacerbation due to lasix c ompliance difficulties. Negative COVID 19 results. This is less likely pneumonia or bronchitis given progressive history. Acute diastolic CHF - will diurese. Consult Cardiology Hyperkalemia - likely nutritional with CKD, will place on low K diet CKD 2 - will monitor renal function Right leg cellulitis - mild, will given IV vancomycin and rocephin, likely can de-escalate to PO keflex and doxycycline in the next 48 hours Moderate-severe protein calorie malnutrition - features reporter to see Hypomagnesemia - will replace IV, monitor. Likely nutritional vs diuretic induced Anemia - likely of chronic disease. Will check iron levels Thrombocytopenia - no clear etiology. Will monitor Super morbid obesity - counseled on lifestyle modification H/o hepatitis C - undetectable virus in 2013 Anxiety with depression - cont home meds Asthma - prn nebs GERD -PPI HLD - statin HTN - cont home meds Hypothyroidism - cont home meds Chronic LE wounds - wound care to see. FEN - Renal diet PPX - lovenox FULL CODE Dispo - inpatient History of Present Illness History of Present Illness Ms Sanders is a 71 year old female w/ PMHx hepatitis C, anxiety with depression, asthma, GERD, HLD, HTN, hypothyroidism, chronic CHF, chronic LE wounds who presents to ED c/o 1 week of progressively worsening shortness of breath. She has but does not take Lasix, notes she can't get up to get to the bathroom and has wet herself often. She becomes short of breath even moving from her wheelchair to get to the bathroom. Is rather sedentary at baseline. She notes worsening swelling of her right leg worse than her left with circumferential redness and some serous drainage. In ED moving from sitting she notably desaturates to 86% and was placed on NCO2. She denies any chest pain, dizziness, headache, new numbness or tingling, focal neuro deficits, pain with urination, fever, cough, abdominal pain, nausea, vomi ting, diarrhea. No travel or recent sick contacts. Covid vaccinated and has had her booster. WBC 9.6, Hb 10.1, platelets 134, NA 143, K5.38, BUN 29, CR 1.3, glucose 105, calcium 8.3, bilirubin 0.4, AST 7, ALT 11, alk phos 107, NT proBNP 5038, high-sensitivity troponin is 11, albumin is 2.9, lactic acid is 1.1, magnesium is 1.4, rapid COVID-19 is negative. ABG PaO2 59 Chest radiograph with interstitial opacities and cardiomegaly. EKG sinus rhythm. Admitted for further care. 11/01: Feeling improved still on O2. Significant diuresis with IV Lasix. Cardiology is ordered arterial and venous Dopplers. She is requesting podiatry consultation given and nail care. No chest pain at this time. Significant intertrigo started on nystatin powder Vitals/I&O Vitals/I&O: Vital Signs Date Time Temp Pulse Resp B/P (MAP) Pulse Ox O2 Delivery O2 Flow Rate FiO2 11/01/21 09:21 96 Nasal Cannula 2.0 11/01/21 08:50 18 11/01/21 08:46 82 126/58 11/01/21 07:00 97.9 97.9 I & O 10/31/21 10/31/21 11/01/21 15:00 23:00 07:00 Intake Total 1100 ml Output Total 2300 ml 2000 ml Balance -2300 ml -900 ml Physical Exam General: Alert, Oriented X3, Cooperative, No acute distress Lungs: Clear Abdomen: Soft, Other Extremities: No cyanosis, Other Skin: Other Labs Labs: Laboratory Tests Test 10/31/21 13:30 10/31/21 16:30 10/31/21 16:54 10/31/21 20:27 White Blood Count 9.6 x10^3/uL (4.0-11.0) Red Blood Count 3.36 x10^6/uL (3.50-5.40) Hemoglobin 10.1 g/dL (12.0-15.5) Hematocrit 31.8 % (36.0-47.0) Mean Corpuscular Volume 95 fL (79-100) Mean Corpuscular Hemoglobin 30 pg (25-35) Mean Corpuscular Hemoglobin Concent 32 g/dL (31-37) Red Cell Distribution Width 17.9 % (11.5-14.5) Platelet Count 134 x10^3/uL (140-400) Neutrophils (%) (Auto) 79 % (31-73) Lymphocytes (%) (Auto) 14 % (24-48) Monocytes (%) (Auto) 6 % (0-9) Eosinophils (%) (Auto) 1 % (0-3) Basophils (%) (Auto) 0 % (0-3) Neutrophils # (Auto) 7.6 x10^3/uL (1.8-7.7) Lymphocytes # (Auto) 1.4 x10^3/uL (1.0-4.8) Monocytes # (Auto) 0.5 x10^3/uL (0.0-1.1) Eosinophils # (Auto) 0.1 x10^3/uL (0.0-0.7) Basophils # (Auto) 0.0 x10^3/uL (0.0-0.2) Sodium Level 143 mmol/L (136-145) Potassium Level 5.3 mmol/L (3.5-5.1) Chloride Level 107 mmol/L (98-107) Carbon Dioxide Level 29 mmol/L (21-32) Anion Gap 7 (6-14) Blood Urea Nitrogen 29 mg/dL (7-20) Creatinine 1.3 mg/dL (0.6-1.0) Estimated GFR (Cockcroft-Gault) 40.6 BUN/Creatinine Ratio 22 (6-20) Glucose Level 105 mg/dL (70-99) Lactic Acid Level 1.1 mmol/L (0.4-2.0) Calcium Level 8.3 mg/dL (8.5-10.1) Magnesium Level 1.4 mg/dL (1.8-2.4) Total Bilirubin 0.4 mg/dL (0.2-1.0) Aspartate Amino Transf (AST/SGOT) 7 U/L (15-37) Alanine Aminotransferase (ALT/SGPT) 11 U/L (14-59) Alkaline Phosphatase 107 U/L (46-116) Troponin I High Sensitivity 11 ng/L (4-50) CV-Huu-D-Type Natriuretic Peptide 5038 pg/mL (0-124) Total Protein 8.3 g/dL (6.4-8.2) Albumin 2.9 g/dL (3.4-5.0) Albumin/Globulin Ratio 0.5 (1.0-1.7) Coronavirus (COVID-19)(PCR) Not detected (NOT DETECTD) SARS-CoV-2 Antigen (Rapid) Negative (NEGATIVE) Urine Collection Type Unknown Urine Color Yellow Urine Clarity Clear Urine pH 6.5 (<5.0-8.0) Urine Specific [place] 1.010 (1.000-1.030) Urine Protein Negative mg/dL (NEG-TRACE) Urine Glucose (UA) Negative mg/dL (NEG) Urine Ketones (Stick) Negative mg/dL (NEG) Urine Blood Negative (NEG) Urine Nitrite Positive (NEG) Urine Bilirubin Negative (NEG) Urine Urobilinogen Dipstick 0.2 mg/dL (0.2 mg/dL) Urine Leukocyte Esterase Negative (NEG) Urine RBC 0 /HPF (0-2) Urine WBC 1-4 /HPF (0-4) Urine Squamous Epithelial Cells Occ /LPF Urine Bacteria Few /HPF (0-FEW) O2 Saturation 89 % (92-99) Arterial Blood pH 7.39 (7.35-7.45) Arterial Blood pCO2 at Patient Temp 46 mmHg (35-46) Arterial Blood pO2 at Patient Temp 59 mmHg (65-108) Arterial Blood HCO3 28 mmol/L (21-28) Arterial Blood Base Excess 2 mmol/L (-3-3) Oxyhemoglobin 88.9 % Methemoglobin 0.2 % (0.0-1.9) Carbon Monoxide, Quantitative 0.2 % (0.0-1.9) FiO2 21%/ room air Glucose (Fingerstick) 79 mg/dL (70-99) Test 11/01/21 04:50 11/01/21 08:07 Sodium Level 140 mmol/L (136-145) Potassium Level 4.5 mmol/L (3.5-5.1) Chloride Level 102 mmol/L (98-107) Carbon Dioxide Level 31 mmol/L (21-32) Anion Gap 7 (6-14) Blood Urea Nitrogen 27 mg/dL (7-20) Creatinine 1.3 mg/dL (0.6-1.0) Estimated GFR (Cockcroft-Gault) 40.6 Glucose Level 110 mg/dL (70-99) Calcium Level 8.3 mg/dL (8.5-10.1) Magnesium Level 1.4 mg/dL (1.8-2.4) Iron Level 44 ug/dL (50-170) Total Iron Binding Capacity 339 ug/dL (250-450) Iron Saturation 13 % (15-34) Triglycerides Level 99 mg/dL (0-150) Cholesterol Level 108 mg/dL (0-200) LDL Cholesterol, Calculated 44 mg/dL (0-100) VLDL Cholesterol, Calculated 20 mg/dL (0-40) Non-HDL Cholesterol Calculated 64 mg/dL (0-129) HDL Cholesterol 44 mg/dL (40-60) Cholesterol/HDL Ratio 2.5 Thyroid Stimulating Hormone (TSH) 3.171 uIU/mL (0.358-3.74) Glucose (Fingerstick) 97 mg/dL (70-99) Assessment and Plan Assessmemt and Plan Problems Medical Problems: (1) Cellulitis Status: Acute (2) CHF exacerbation Status: Acute Comment Review of Relevant I have reviewed the following items mikael (where applicable) has been applied. Medications: Current Medications Medications (Trade) Dose Ordered Sig/Doris Route PRN Reason Start Time Stop Time Status Last Admin Dose Admin Vancomycin HCl (Vanco Per Pharmacy) 1 each PRN DAILY PRN MC SEE COMMENTS 10/31/21 14:00 11/01/21 07:37 Ceftriaxone Sodium (Rocephin) 1 gm 1X ONCE IVP 10/31/21 14:00 10/31/21 14:01 DC 10/31/21 13:58 Vancomycin HCl 2 gm/Sodium Chloride 500 ml @ 250 mls/hr 1X ONCE IV 10/31/21 14:00 10/31/21 15:59 DC 10/31/21 14:04 Furosemide (Lasix) 80 mg 1X ONCE IVP 10/31/21 14:45 10/31/21 14:46 DC 10/31/21 15:05 Magnesium Sulfate 50 ml @ 25 mls/hr 1X ONCE IV 10/31/21 15:30 10/31/21 17:29 DC 10/31/21 17:35 Nystatin (Nystop) 1 soham BID TP 10/31/21 21:00 11/01/21 08:51 Aspirin (Aspirin Chewable) 81 mg DAILY PO 11/01/21 09:00 11/01/21 08:46 Diclofenac Sodium (Voltaren) 1 soham BID TP 10/31/21 22:00 11/01/21 08:50 Docusate Sodium (Colace) 100 mg DAILY PO 11/01/21 09:00 11/01/21 08:45 Famotidine (Pepcid) 20 mg BID PO 10/31/21 22:00 11/01/21 08:45 Ferrous Sulfate (Feosol) 325 mg DAILY PO 11/01/21 09:00 11/01/21 08:47 Metoprolol Succinate (Toprol Xl) 100 mg DAILY PO 11/01/21 09:00 11/01/21 08:46 Pramipexole Dihydrochloride (miraPEX) 1 mg HS PO 10/31/21 22:00 10/31/21 22:37 Citalopram Hydrobromide (CeleXA) 40 mg DAILY PO 11/01/21 09:00 11/01/21 08:46 Gabapentin (Neurontin) 800 mg TID PO 11/01/21 09:00 11/01/21 08:46 Levothyroxine Sodium (Synthroid) 200 mcg DAILY06 PO 11/01/21 06:00 11/01/21 05:53 Losartan Potassium (Cozaar) 100 mg DAILY PO 11/01/21 09:00 11/01/21 08:46 Polyethylene Glycol (miraLAX PACKET) 17 gm DAILY PO 11/01/21 00:30 11/01/21 08:47 Acetaminophen/ Hydrocodone Bitart (Lortab 5/325) 1 tab PRN Q6HRS PRN PO PAIN 11/01/21 01:16 11/01/21 08:50 Ceftriaxone Sodium (Rocephin) 1 gm Q24H IVP 11/01/21 09:00 11/01/21 08:51 Lactobacillus Rhamnosus (Culturelle) 1 cap BID PO 11/01/21 09:00 11/01/21 08:45 Enoxaparin Sodium (Lovenox 60mg Syringe) 60 mg Q12HR SQ 11/01/21 09:00 11/01/21 08:47 Furosemide (Lasix) 40 mg BID92 IVP 11/01/21 09:00 11/01/21 09:12 DC 11/01/21 08:46 Magnesium Sulfate 100 ml @ 25 mls/hr 1X ONCE IV 11/01/21 09:00 11/01/21 12:59 11/01/21 09:21 Furosemide (Lasix) 40 mg 1X ONCE IVP 11/01/21 09:15 2/9/22 09:16 DC 11/01/21 09:23 Justifications for Admission Other Justification UTI, AMS EULALIA MILLS MD Nov 01, 2021 10:46
[2021-11-01 11:00] VITALS: BP 124/64
[2021-11-01] MEDS ORDERED: PERFLUTREN PROTEIN-A MICROSPHR 0.22 MG/ML 3 ML VIAL. IV ONE ×2 (11:30→13:00)
--- NOTE | 2021-11-01 11:35 | NUR ---
SS following for discharge planning. SS reviewed pt chart and discussed with pt RN. Pt is from home and is currently requiring oxygen at two liters nasal canula. COVID19 negative. Cardiology and wound care consulted. Pt on IV Vancomycin, IV Rocephin, and IV Lasix. PT/OT ordered. SS will continue to follow for discharge planning.
[2021-11-01] MEDS: VANCOMYCIN 1.75 GM in IV NORMAL SALINE 500ML BAG 500 ML IV SCH (13:48)
--- NOTE | 2021-11-01 14:24 | NUR ---
Wound/Ostomy Care Wound Type/Assessment: Wound care consult for multiple wounds. Pt has cellulitis to BLE and yeast rash to buttocks, under pannus, and under breasts. All areas assessed and redressed. Treatment Recommendations/Plan: Apply nystatin powder BID to all yeast rash, place chucks under pannus to absorb moisture. BLE apply honey, xeroform, ABD and kerlix. Change every 2-3 days and PRN. Education provided: elevation of BLE necessary for wound healing. Offloading surface/device: TQ2H, float heels Recommended Referrals/Tests: na Discharge Recommendations for dressings: see above
[2021-11-01 14:38] VITALS: BP 102/54
--- NOTE | 2021-11-01 17:25 | CARD ---
MR#: [id number] Date of Study: 11/01/2021 Ordering Physician: LA LEWIS, Referring Physician: LA LEWIS Tech: Brissa Masters [facility] APPROVED REPORT EXAM: Two-dimensional and M-mode echocardiogram with Doppler and color Doppler. Other Information Quality : Technically LimitedHR: 68bpm INDICATION Dyspnea Echo Enhancing Agent Indication: Endocardial border delineation Agent/Amount Used: Optison 3mL RISK FACTORS Hypertension Obesity Hyperlipidemia Diabetes 2D DIMENSIONS RVDd3.3 (2.9-3.5cm)Left Atrium(2D)4.1 (1.6-4.0cm) IVSd1.2 (0.7-1.1cm)Aortic Root(2D)2.4 (2.0-3.7cm) LVDd3.5 (3.9-5.9cm)LVOT Diameter2.0 (1.8-2.4cm) PWd1.2 (0.7-1.1cm)LVDs2.3 (2.5-4.0cm) FS (%) 35.9 %SV34.3 ml Aortic Valve AoV Peak Kavon.248.0cm/sAoV VTI58.3cm AO Peak GR.24.6mmHgLVOT Peak [place].126.4cm/s AO Mean GR.12mmHgAVA (VMAX)1.56cm2 Mitral Valve MV E Ufejndji90.2cm/sMV DECEL BYKY152ic MV A Jvpocmgm60.6cm/sE/A Ratio1.1 Pulmonary Valve PV Peak Dqicdssf611.1cm/s Tricuspid Valve TR P. Epayaoab407nj/sTR Peak Gr.23mmHg LEFT VENTRICLE The left ventricle is normal size. There is mild concentric left ventricular hypertrophy. The left ve ntricular systolic function is normal and the ejection fraction is within normal range. LV ejection f raction of 55 to 60%. There is normal LV segmental wall motion. RIGHT VENTRICLE The right ventricle is mildly dilated. The right ventricle is mildly hypertrophied. The right ventric ular systolic function is normal. ATRIA The left atrium size is normal. The right atrium size is normal. AORTIC VALVE The aortic valve is normal in structure and function. Doppler and Color Flow revealed no significant aortic regurgitation. There is no significant aortic valvular stenosis. MITRAL VALVE The mitral valve is normal in structure and function. There is no evidence of mitral valve prolapse. There is no mitral valve stenosis. Doppler and Color Flow revealed mild mitral valve regurgitation. TRICUSPID VALVE The tricuspid valve is normal in structure and function. Doppler and Color Flow revealed trace tricus pid valve regurgitation. There is no tricuspid valve stenosis. PULMONIC VALVE The pulmonary valve is normal in structure and function. Doppler and Color Flow revealed no pulmonic valvular regurgitation. GREAT VESSELS The aortic root is normal in size. The ascending aorta is normal in size. The IVC is dilated and stu apses <50% with inspiration. PERICARDIAL EFFUSION There is no evidence of significant pericardial effusion. Critical Notification Critical Value: No <Conclusion> The left ventricle is normal size. The left ventricular systolic function is normal and the ejection fraction is within normal range. LV ejection fraction of 55 to 60%. There is mild concentric left ventricular hypertrophy. Doppler and Color Flow revealed no significant aortic regurgitation. There is no significant aortic valvular stenosis. Doppler and Color Flow revealed mild mitral valve regurgitation. Doppler and Color Flow revealed trace tricuspid valve regurgitation. Signed by : Martin Dickson MD Electronically Approved : 11/01/2021 17:24:56
[2021-11-01] MEDS: ALPRAZolam 0.5 MG TABLET PO PRN (18:40)
[2021-11-01 19:25] VITALS: BP 101/50
[2021-11-01] MEDS: PRAMIPEXOLE 1 MG TABLET. PO SCH (20:49)
[2021-11-01 23:10] VITALS: BP 105/51
[2021-11-02 03:05] VITALS: BP 118/53
[2021-11-02 03:52] LABS: CALCIUM 7.2 mg/dL (8.5-10.1); CREATININE 1.4 mg/dL (0.6-1.0); GFR 37.3; MAGNESIUM 1.8 mg/dL (1.8-2.4); POTASSIUM 4.8 mmol/L (3.5-5.1)
[2021-11-02] MEDS: LEVOTHYROXINE 100 MCG TABLET PO SCH (05:35)
[2021-11-02] MEDS: BUDESONIDE 0.5 MG/2 ML NEBU. NEB SCH ×2 (07:18→20:33)
[2021-11-02] MEDS: ALBUTEROL SULFATE 2.5 MG/3 ML NEBU. NEB SCH ×4 (07:18→20:33)
[2021-11-02 08:00] VITALS: BP 94/52
[2021-11-02] MEDS: FERROUS SULFATE 325 MG TABLET. PO SCH (08:37)
[2021-11-02] MEDS: GABAPENTIN 400 MG CAPSULE. PO SCH ×3 (08:37→19:59)
[2021-11-02] MEDS: METOPROLOL SUCC 24HR ER 100 MG TAB.ER.24H. PO SCH (08:38)
[2021-11-02] MEDS: LACTOBACILLUS RHAMNOSUS GG 1 CAPSULE. PO SCH ×2 (08:38→19:59)
[2021-11-02] MEDS: DOCUSATE SODIUM 100 MG CAPSULE. PO SCH (08:38)
[2021-11-02] MEDS: CITALOPRAM 20 MG TABLET. PO SCH (08:38)
[2021-11-02] MEDS: FUROSEMIDE 40 MG/4 ML VIAL. IVP SCH (08:38)
[2021-11-02] MEDS: ASPIRIN CHEWABLE 81 MG TABLET. PO SCH (08:38)
[2021-11-02] MEDS: LOSARTAN POTASSIUM 50 MG TABLET. PO SCH (08:38)
[2021-11-02] MEDS: FAMOTIDINE 20 MG TABLET. PO SCH ×2 (08:38→19:59)
[2021-11-02] MEDS: POLYETHYLENE GLYCOL 3350 17 GM PACKET. PO SCH (08:39)
[2021-11-02] MEDS: HYDROcodone/APAP 5/325MG 1 TAB TABLET PO PRN ×3 (08:39→22:20)
[2021-11-02] MEDS: cefTRIAXone IV Push 1 GM VIAL. IVP SCH (08:39)
[2021-11-02] MEDS: DICLOFENAC SODIUM 1% TOPICAL GEL 100GM TUBE. TP SCH ×2 (08:40→20:01)
[2021-11-02] MEDS: NYSTATIN TOPICAL POWDER 15GM BOTTLE. TP SCH ×2 (08:40→20:00)
[2021-11-02] MEDS ORDERED: FUROSEMIDE 40 MG TABLET. PO SCH (09:00)
--- NOTE | 2021-11-02 09:15 | PDOC ---
CARDIO Progress Notes Date and Time Date of Service 11/02/21 Time of Evaluation 0900 Vitals Vitals Vital Signs Date Time Temp Pulse Resp B/P (MAP) Pulse Ox O2 Delivery O2 Flow Rate FiO2 11/02/21 08:39 95 Nasal Cannula 2.0 11/02/21 08:38 63 94/52 11/02/21 08:00 97.3 20 97.3 Weight Weight [ ] Input and Output Intake and Output Intake and Output 11/02/21 07:00 Intake Total 1120 ml Output Total 2800 ml Balance -1680 ml Intake Oral 1120 ml Output Urine Total 2800 ml # Bowel Movements 1 Laboratory Labs Laboratory Tests Test 11/01/21 12:24 11/01/21 16:58 11/01/21 21:05 11/02/21 02:40 Glucose (Fingerstick) 115 mg/dL (70-99) 110 mg/dL (70-99) 128 mg/dL (70-99) Sodium Level 139 mmol/L (136-145) Potassium Level 4.8 mmol/L (3.5-5.1) Chloride Level 100 mmol/L (98-107) Carbon Dioxide Level 30 mmol/L (21-32) Anion Gap 9 (6-14) Blood Urea Nitrogen 27 mg/dL (7-20) Creatinine 1.4 mg/dL (0.6-1.0) Estimated GFR (Cockcroft-Gault) 37.3 Glucose Level 94 mg/dL (70-99) Calcium Level 7.2 mg/dL (8.5-10.1) Magnesium Level 1.8 mg/dL (1.8-2.4) Test 11/02/21 08:04 Glucose (Fingerstick) 80 mg/dL (70-99) Microbiology Micro Microbiology 10/31/21 Urine Culture - Final, Complete 10/31/21 Blood Culture - Preliminary, Resulted NO GROWTH AFTER 1 DAY Physical Exam HEENT: Neck Supple W Full Motion Chest: Symmetric LUNGS: Other (diminished bases) Heart: S1S2, RRR, no thrills, no gallops, no murmurs Abdomen: Soft N/T, Other (obese) Extremities: Other (1-2+ bilateral LE edema) Neurology: alert, oriented, follow commands Assessment Assessment 1. Acute on chronic diastolic CHF; echo with preserved LV systolic function. S/p IV diuresis with good UOP 2. Hx of asthma with obstructive sleep apnea: noncompliant 3. Hypomagnesemia; replaced 4. Morbid obesity 5. HTN; low end 6. Hypothyroidism 7. CKD 8. Bilateral leg pain and edema; LE US, arterial doppler pending 9. UTI; as per IM Recommendations Secondary prevention measures Ongoing Lasix therapy Reinforced compliance with Lasix and CPAP Outpatient MPI as arranged Follow up has been scheduled with Dr. Castañeda December 05Saturday at 2PM Justicifation of Admission Dx: Justifications for Admission: Justification of Admission Dx: N/A SHERIDAN STUART APRN Nov 02, 2021 09:15
[2021-11-02 11:09] VITALS: BP 165/89
--- NOTE | 2021-11-02 12:39 | NUR ---
SS following up with discharge planning. SS reviewed pt chart and discussed with pt RN. Pt is currently requiring oxygen at two liters nasal canula. COVID19 negative. Pt on IV Lasix, IV Vancomycin, and IV Rocephin. PT/OT recommended home with home healthcare. Cardiology and wound care following. SS will continue to follow for discharge planning.
--- NOTE | 2021-11-02 13:36 | PDOC ---
[facility] PROGRESS NOTE Date of Service DOS: DATE: 11/02/21 TIME: 13:35 Chief Complaint Chief Complaint Acute respiratory failure with hypoxia - CHF exacerbation due to lasix compliance difficulties. Negative COVID 19 results. This is less likely pneumonia or bronchitis given progressive history. Acute diastolic CHF - will diurese. Consult Cardiology Hyperkalemia - likely nutritional with CKD, will place on low K diet CKD 2 - will monitor renal function Right leg cellulitis - mild, will given IV vancomycin and rocephin, likely can de-escalate to PO keflex and doxycycline in the next 48 hours Moderate-severe protein calorie malnutrition - greens picker to see Hypomagnesemia - will replace IV, monitor. Likely nutritional vs diuretic induced Anemia - likely of chronic disease. Will check iron levels Thrombocytopenia - no clear etiology. Will monitor Super morbid obesity - counseled on lifestyle modification H/o hepatitis C - undetectable virus in 2013 Anxiety with depression - cont home meds Asthma - prn nebs GERD -PPI HLD - statin HTN - cont home meds Hypothyroidism - cont home meds Chronic LE wounds - wound care to see. FEN - Renal diet PPX - lovenox FULL CODE Dispo - inpatient History of Present Illness History of Present Illness Ms Sanders is a 71 year old female w/ PMHx hepatitis C, anxiety with depression, asthma, GERD, HLD, HTN, hypothyroidism, chronic CHF, chronic LE wounds who presents to ED c/o 1 week of progressively worsening shortness of breath. She has but does not take Lasix, notes she can't get up to get to the bathroom and has wet herself often. She becomes short of breath even moving from her wheelchair to get to the bathroom. Is rather sedentary at baseline. She notes worsening swelling of her right leg worse than her left with circumferential redness and some serous drainage. In ED moving from sitting she notably desaturates to 86% and was placed on NCO2. She denies any chest pain, dizziness, headache, new numbness or tingling, focal neuro deficits, pain with urination, fever, cough, abdominal pain, nausea, vom iting, diarrhea. No travel or recent sick contacts. Covid vaccinated and has had her booster. WBC 9.6, Hb 10.1, platelets 134, NA 143, K5.38, BUN 29, CR 1.3, glucose 105, calcium 8.3, bilirubin 0.4, AST 7, ALT 11, alk phos 107, NT proBNP 5038, high-sensitivity troponin is 11, albumin is 2.9, lactic acid is 1.1, magnesium is 1.4, rapid COVID-19 is negative. ABG PaO2 59 Chest radiograph with interstitial opacities and cardiomegaly. EKG sinus rhythm. Admitted for further care. 11/01: Feeling improved still on O2. Significant diuresis with IV Lasix. Cardiology is ordered arterial and venous Dopplers. She is requesting podiatry consultation given and nail care. No chest pain at this time. Significant intertrigo started on nystatin powder 11/02/2021 No acute events overnight. Patient seen and examined bedside. Adequate urine output with IV Lasix therapy. We will continue with IV Lasix. Pending results of arterial venous Dopplers. Patient's chart, labs, images were reviewed and discussed with RN Vitals/I&O Vitals/I&O: Vital Signs Date Time Temp Pulse Resp B/P (MAP) Pulse Ox O2 Delivery O2 Flow Rate FiO2 11/02/21 13:09 94 Room Air 11/02/21 11:09 97.8 68 20 165/89 (114) 2.0 97.8 I & O 11/01/21 11/01/21 11/02/21 15:00 23:00 07:00 Intake Total 540 ml 380 ml 200 ml Output Total 2400 ml 400 ml Balance 540 ml -2020 ml -200 ml Physical Exam General: Alert, Oriented X3, Cooperative, No acute distress Lungs: Clear Abdomen: Soft, Other Extremities: No cyanosis, Other Skin: Other Labs Labs: Laboratory Tests Test 11/01/21 16:58 11/01/21 21:05 11/02/21 02:40 11/02/21 08:04 Glucose (Fingerstick) 110 mg/dL (70-99) 128 mg/dL (70-99) 80 mg/dL (70-99) Sodium Level 139 mmol/L (136-145) Potassium Level 4.8 mmol/L (3.5-5.1) Chloride Level 100 mmol/L (98-107) Carbon Dioxide Level 30 mmol/L (21-32) Anion Gap 9 (6-14) Blood Urea Nitrogen 27 mg/dL (7-20) Creatinine 1.4 mg/dL (0.6-1.0) Estimated GFR (Cockcroft-Gault) 37.3 Glucose Level 94 mg/dL (70-99) Calcium Level 7.2 mg/dL (8.5-10.1) Magnesium Level 1.8 mg/dL (1.8-2.4) Test 11/02/21 11:01 Glucose (Fingerstick) 130 mg/dL (70-99) Assessment and Plan Assessmemt and Plan Problems Medical Problems: (1) Cellulitis Status: Acute (2) CHF exacerbation Status: Acute Comment Review of Relevant I have reviewed the following items mikael (where applicable) has been applied. Medications: Current Medications Medications (Trade) Dose Ordered Sig/Doris Route PRN Reason Start Time Stop Time Status Last Admin Dose Admin Vancomycin HCl 1.75 gm/Sodium Chloride 500 ml @ 250 mls/hr Q24H IV 11/01/21 14:00 11/01/21 13:48 Furosemide (Lasix) 40 mg DAILY IVP 11/02/21 09:00 11/02/21 08:38 Justifications for Admission Other Justification UTI, AMS MIKE MASON MD Nov 02, 2021 13:36
[2021-11-02] MEDS: VANCOMYCIN 1.75 GM in IV NORMAL SALINE 500ML BAG 500 ML IV SCH (13:56)
[2021-11-02 14:05] LABS: VANC TR 23.3 mcg/mL (10.0-20.0)
[2021-11-02] MEDS: VANCOMYCIN PER PHARMACY MC PRN (15:02)
--- NOTE | 2021-11-02 15:02 | NUR ---
Pharmacy Vancomycin Dosing Note S: Consulted to monitor and dose vancomycin started 10/31/21. O: PILLO JEROME is a 71 year old F with Cellulitis. Other Antibiotics: LABS: Last BUN: 27 Last Creatinine: 1.4 Creatinine Clearance: 51 mL/min Last WBC: 9.6 Last Procalcitonin: -- Tmax (past 24 hours): 98.2 Microbiology: 10/31 blood cx: NGTD 10/31 urine cx: no growth - final I/O: Drug Levels: Last Trough level: 23.3 on 11/02/21 at 1340 Last dose given 11/01/21 at 2000 Vancomycin Dosing: Dosing Weight: Actual Target Trough: 10-20 A: Based on: trough level inaccurate d/t timing of previous dose. Repeat trough on 11/03. P: 1. Continue Vancomycin 1750 mg IV q24h 2. Follow up Trough level on 11/03/21 at 1330 3. Pharmacy will continue to monitor, follow and adjust therapy as needed. JAY MORGAN [facility], 11/02/21 [id number]
[2021-11-02 15:48] VITALS: BP 99/47
[2021-11-02] MEDS: ALPRAZolam 0.5 MG TABLET PO PRN (17:21)
[2021-11-02 19:14] VITALS: BP 103/52
[2021-11-02] MEDS: PSYLLIUM HUSK (SUGAR FREE) 1 PKT PACKET PO SCH (19:54)
[2021-11-02] MEDS: PRAMIPEXOLE 1 MG TABLET. PO SCH (19:59)
[2021-11-02 22:03] VITALS: BP 115/56
[2021-11-03 02:28] VITALS: BP 122/58
[2021-11-03] MEDS: LEVOTHYROXINE 100 MCG TABLET PO SCH (05:44)
[2021-11-03 06:01] LABS: CREATININE 1.4 mg/dL (0.6-1.0); GFR 37.3
[2021-11-03 07:00] VITALS: BP 106/51
[2021-11-03] MEDS: BUDESONIDE 0.5 MG/2 ML NEBU. NEB SCH (07:39)
[2021-11-03] MEDS: ALBUTEROL SULFATE 2.5 MG/3 ML NEBU. NEB SCH ×3 (07:39→16:11)
[2021-11-03] MEDS: POLYETHYLENE GLYCOL 3350 17 GM PACKET. PO SCH (08:22)
[2021-11-03] MEDS: NYSTATIN TOPICAL POWDER 15GM BOTTLE. TP SCH (08:23)
[2021-11-03] MEDS: DOCUSATE SODIUM 100 MG CAPSULE. PO SCH (08:24)
[2021-11-03] MEDS: DICLOFENAC SODIUM 1% TOPICAL GEL 100GM TUBE. TP SCH (08:24)
[2021-11-03] MEDS: LACTOBACILLUS RHAMNOSUS GG 1 CAPSULE. PO SCH (08:24)
[2021-11-03] MEDS: METOPROLOL SUCC 24HR ER 100 MG TAB.ER.24H. PO SCH (08:24)
[2021-11-03] MEDS: GABAPENTIN 400 MG CAPSULE. PO SCH ×2 (08:24→14:00)
[2021-11-03] MEDS: ASPIRIN CHEWABLE 81 MG TABLET. PO SCH (08:24)
[2021-11-03] MEDS: HYDROcodone/APAP 5/325MG 1 TAB TABLET PO PRN ×2 (08:24→14:44)
[2021-11-03] MEDS: FERROUS SULFATE 325 MG TABLET. PO SCH (08:24)
[2021-11-03] MEDS: CITALOPRAM 20 MG TABLET. PO SCH (08:25)
[2021-11-03] MEDS: FAMOTIDINE 20 MG TABLET. PO SCH (08:25)
[2021-11-03] MEDS: LOSARTAN POTASSIUM 50 MG TABLET. PO SCH (08:25)
[2021-11-03] MEDS: FUROSEMIDE 40 MG/4 ML VIAL. IVP SCH (08:28)
[2021-11-03] MEDS: ALPRAZolam 0.5 MG TABLET PO PRN (10:23)
[2021-11-03 10:31] VITALS: BP 120/56
[2021-11-03] MEDS ORDERED: DOXY100C3 PO (11:21)
--- NOTE | 2021-11-03 11:23 | SNU/HH DC ---
DISCHARGE WITH HOME HEALTH DISCHARGE INFORMATION: Discharge Date: Nov 03, 2021 Final Diagnosis: Problems Medical Problems: (1) Cellulitis Status: Acute (2) CHF exacerbation Status: Acute Condition on Discharge: Stable CODE STATUS: Code Status: Full HOME HEALTH: Face to Face: I certify this patient is under my care and that I, or a nurse practitioner or physician's assistant womens volleyball coach working with me, had a face to face encounter that meets the physician face to face encounter requirements with this patient on []. Medical Complications: CHF, Falls, Other (Lower extremity wounds) RN For Eval/Treatment: Yes Physical Therapy For: Evalulation/Treatment Occupational Therapy For: Evaluation/Treatment Home Health Aide For: Self-care Pt Meets Homebound Status: Poor coordination w/ amb., Extreme weakness w/ amb., Fatigue w/ amb., Frequent falls w/ injury, Unable to negotiate home POST DISCHARGE ORDERS: Activity Instructions for Disc: Activity as tolerated Weight Bearing Status after Di: No restrictions DIET AFTER DISCHARGE: Cardiac Wound/Incision Care: Keep wound/cast CDI, Other, see below CHECKS AFTER DISCHARGE: Checks after discharge: Check blood press - daily, Check your Temp as needed, Weigh Yourself Daily FOLLOW-UP: Follow up with: PCP within 2 weeks of discharge Follow Up With: Wound care and cardiology TREATMENT/EQUIPMENT ORDERS: Adaptive Equipment Issued: None CERTIFICATION STATEMENT: Certification Statement: Certification Statement: Based on the above finding, I certify that this patient is confined to the home and needs intermittent mcfp care, physical therapy and/or speech therapy, or continues to need occupational therapy.~ This patient is under my care, and I have initiated the establishment of the plan of care.~ This patient will be followed by myself or a community physician who will periodically review the plan of care. Home Meds Active Scripts Doxycycline Hyclate (DOXYCYCLINE HYCLATE) 100 Mg Capsule, 1 CAP PO BID for lower extremity wounds for 5 Days, #10 CAP Prov:MIKE MASON MD 11/03/21 Hydrocodone/Acetaminophen (Hydrocodone-Acetamin 5-325 mg) 1 Each Tablet, 1 EACH PO Q6HRS for 14 Days, #20 TAB Prov:ISABEL LOPEZ I DO 11/14/20 Acetaminophen (TYLENOL) 325 Mg Tablet, 650 MG PO PRN Q4HRS PRN for TEMP OVER 100.4F for 30 Days, #120 TAB Prov:RIFFELCHRISTOPHER S MD 08/31/20 Magnesium Oxide (Magnesium Oxide) 400 Mg Tablet, 400 MG PO BIDAC for Hypomagnesemia for 30 Days, #60 TAB Prov:EULALIA MILLS MD 08/31/20 Alprazolam (ALPRAZOLAM) 0.5 Mg Tablet, 0.5 MG PO PRN TID PRN for ANXIETY / AGIT ATION for 6 Days, #15 TAB Prov:EULALIA MILLS MD 08/31/20 Diclofenac Sodium (VOLTAREN) 100 Gm Gel..gram., 1 LIZA TP BID for Osteoarthritis for 30 Days, #60 EACH 2 Refills Prov:EULALIA MILLS MD 08/10/19 Reported Medications Losartan Potassium (LOSARTAN POTASSIUM) 100 Mg Tablet, 100 MG PO DAILY for HYPERTENSION, TAB 10/31/21 Levothyroxine Sodium (SYNTHROID) 200 Mcg Tablet, 350 MCG PO DAILYAC for THYROID SUPPLEMENT, #30 TAB 0 Refills 10/31/21 Levothyroxine Sodium (SYNTHROID) 200 Mcg Tablet, 200 MCG PO DAILYAC for THYROID SUPPLEMENT, #30 TAB 0 Refills 10/31/21 Nystatin (NYSTATIN) 15 Gm Powder, 1 LIZA TP BID for yeast for 7 Days, #1 BOTTLE 0 Refills apply to affected area(s) 10/26/20 Pramipexole Di-Hcl (MIRAPEX) 1 Mg Tablet, 1 MG PO HS for restless leg, TAB 09/23/20 Gabapentin (GABAPENTIN) 800 Mg Tablet, 800 MG PO TID for NEUROGENIC PAIN, TAB 09/23/20 Ferrous Sulfate (FERROUS SULFATE) 325 Mg Tablet, 1 TAB PO DAILY for anemia, #30 TAB 3 Refills 09/23/20 Furosemide (FUROSEMIDE) 40 Mg Tablet, 1 TAB PO DAILY for diuretic, #30 TAB 5 Refills 09/23/20 Docusate Sodium (COLACE) 100 Mg Capsule, 1 CAP PO DAILY for Constipation for 15 Days, #15 CAP 0 Refills 08/08/19 Aspirin (ASPIRIN) 81 Mg Tab.chew, 81 MG PO DAILY for Heart Health, TAB.CHEW 08/08/19 Famotidine (FAMOTIDINE) 20 Mg Tablet, 20 MG PO BID for GERD, TAB 08/08/19 Budesonide/Formoterol Fumarate (SYMBICORT 160-4.5 MCG INHALER) 10.2 Gm Hfa.aer.ad, 2 PUFF IH BID 10/03/13 Citalopram Hydrobromide (CITALOPRAM HBR) 40 Mg Tablet, 40 MG PO DAILY 10/03/13 Metoprolol Succinate (METOPROLOL SUCCINATE ( XL )) 100 Mg Tab.er.24h, 100 MG PO DAILY 10/03/13 MIKE MASON MD Nov 03, 2021 11:23
--- NOTE | 2021-11-03 12:24 | NUR ---
SS following up with discharge planning. SS reviewed pt chart and discussed with pt RN. Pt is currently requiring oxygen at two liters nasal canula. COVID19 negative. Pt has no home oxygen. Discharge orders received for home with home healthcare. SS met with pt and discussed discharge planning. Pt unable to complete six minute walk. RN to test on room air. Pt previously had services through [email or web address], ; fax [phone]. Pt requesting commode as well. Scripts requested for commode and oxygen. Pt declining home healthcare at this time. SS will continue to follow for discharge planning. Addendum: 11/03/21 at 1422 by KAT OBRIEN SS Scripts received for oxygen and commode. Script and clinical phoned and faxed to [email or web address]. Pt had credit hold with [email or web address] for $215.00. SS assisted pt with pt accounts for [email or web address] and credit hold was removed. Oxygen and commode to be delivered to the home today. Oxygen tank provided to pt for home. Pt's RN notified.
--- NOTE | 2021-11-03 12:32 | PDOC ---
LA LEWIS CHIP BIN OPERATOR 11/03/21 1232: CARDIO Progress Notes Date and Time Date of Service 11/03/2021 Time of Evaluation 1210 Subjective Subjective: No Chest Pain, No shortness of breath, No Palpitations Vitals Vitals Vital Signs Date Time Temp Pulse Resp B/P (MAP) Pulse Ox O2 Delivery O2 Flow Rate FiO2 11/03/21 11:14 95 Nasal Cannula 2.0 11/03/21 10:31 97.6 68 20 120/56 (77) 97.6 Weight Weight [ ] Input and Output Intake and Output Intake and Output 11/03/21 07:00 Intake Total 1580 ml Output Total 2651 ml Balance -1071 ml Intake Oral 1580 ml Output Urine Total 2651 ml # Voids 2 # Bowel Movements 5 Laboratory Labs Laboratory Tests Test 11/02/21 13:40 11/02/21 16:09 11/02/21 20:35 11/03/21 04:30 Vancomycin Level Trough 23.3 mcg/mL (10.0-20.0) Vancomycin Last Dose Date 11/01/21 Vancomycin Last Dose Time 1400 Glucose (Fingerstick) 123 mg/dL (70-99) 125 mg/dL (70-99) Creatinine 1.4 mg/dL (0.6-1.0) Estimated GFR (Cockcroft-Gault) 37.3 Test 11/03/21 08:03 11/03/21 11:30 Glucose (Fingerstick) 93 mg/dL (70-99) 94 mg/dL (70-99) Microbiology Micro Microbiology 10/31/21 Urine Culture - Final, Complete 10/31/21 Blood Culture - Preliminary, Resulted NO GROWTH AFTER 2 DAYS Physical Exam HEENT: Neck Supple W Full Motion Chest: Symmetric LUNGS: Other (diminished bases) Heart: S1S2, RRR (SR), no thrills, no gallops, no murmurs Abdomen: Soft N/T, Other (obese) Extremities: Other (1-2+ bilateral LE edema) Neurology: alert, oriented, follow commands Assessment Assessment 1. Acute on chronic diastolic CHF; echo with preserved LV systolic function. compensated 2. Hx of asthma with obstructive sleep apnea: noncompliant 3. Hypomagnesemia; replaced 4. Morbid obesity 5. HTN; controlled 6. Hypothyroidism 7. CKD 8. Bilateral leg pain and edema; LE US, arterial doppler pending 9. UTI; as per IM Recommendations Secondary prevention measures Lasix therapy Reinforced treatment compliance with Lasix and CPAP Outpatient MPI as arranged Follow up has been scheduled with Dr. Quinteros December 05Saturday at 2PM 6 min walk pending .Awaiting LE venous and arterial duplex report Justicifation of Admission Dx: Justifications for Admission: Justification of Admission Dx: N/A SAMAN QUINTEROS MD 11/03/21 1518: CARDIO Progress Notes Assessment Assessment Patient seen and examined She reports feeling better today. I agree with our nurse practitioners assessment and plan. Acute on chronic diastolic CHF; echo with preserved LV systolic function. The patient is now compensated. Continuing present treatment. Outpatient testing and follow-up. Hx of asthma with obstructive sleep apnea: noncompliant. Symptomatically improved. Hypomagnesemia; replaced Morbid obesity HTN; controlled Hypothyroidism CKD Bilateral leg pain and edema; LE US, arterial doppler pending UTI; as per IM LA LEWIS APRN Nov 03, 2021 12:32 SAMAN QUINTEROS MD Nov 03, 2021 15:18
--- NOTE | 2021-11-03 13:02 | NUR ---
Removed oxygen from patient, SpO2 went down to 82-85%, re-applied 3 liters of oxygen and Spo2 is at 93-96%, notified Lisa in to set up home oxygen.
[2021-11-03] MEDS: VANCOMYCIN PER PHARMACY MC PRN (13:24)
--- NOTE | 2021-11-03 13:32 | RAD ---
MR#: [id number] Date of Study: 11/01/2021 Ordering Physician: LA LEWIS, Referring Physician: LA LEWIS, Tech: Odell Choe MBA, RDMS, RVT, RDCS, RTR APPROVED REPORT Bilateral Lower Extremity Venous Study for DVT Patient Location: IN-PATIENT Indications Lower Extremity Edema: Bilateral Vein Imaging (Right) CFV (R): Compressible SFJ (R): Compressible FEM (R): Compressible POP (R): Compressible DFV (R): Compressible PTV (R): Spontaneous GSV (R): Spontaneous Vein Imaging (Left) CFV (L): Compressible SFJ (L): Compressible FEM (L): Compressible POP (L): Compressible DFV (L): Compressible PTV (L): Spontaneous GSV (L): Spontaneous Doppler Evaluation (Right) CFV (R): Spontaneous POP (R):Spontaneous Doppler Evaluation (Left) CFV (L):Spontaneous POP (L):Spontaneous Findings Grayscale images of deep veins bilateral lower extremities were technically difficult but grossly unr emarkable with fully compressible veins and without any evidence of thrombus. Spectral waveform and color duplex analysis of common femoral, superficial femoral and deep femoral and popliteal veins kelley aterally within normal limits. There is spontaneous flow in veins below the knee. No obvious deep v enous thrombosis was noted. Critical Notification Critical Value: No <Conclusion> Bilateral lower extremity venous duplex scan did not show any deep venous thrombosis. Signed by : Pavel Astudillo, Electronically Approved : 11/03/2021 13:31:44
[2021-11-03] MEDS ORDERED: VANCOMYCIN 1.75 GM in IV NORMAL SALINE 500ML BAG 500 ML IV SCH (14:00)
[2021-11-03 14:46] VITALS: BP 110/54
--- NOTE | 2021-11-03 15:59 | RAD ---
MR#: [id number] Date of Study: 11/01/2021 Ordering Physician: LA LEWIS, Referring Physician: LA LEWIS, Tech: Odell Choe MBA, RDMS, RVT, RDCS, RTR APPROVED REPORT Patient Location: IN-PATIENT Indications Rest Pain:Bilaterally VELOCITY AND DOPPLER WAVEFORM ANALYSIS RIGHT cm/secWaveformSeverity LEFT cm/secWaveform Severity dCFA 165.0MonophasicdCFA 172.0Monophasic Prof Fem Art. 38.0MonophasicProf Fem Art. 161.0Monophasic Fem Art Prox. 204.0MonophasicFem Art Prox. 164.0Monophasic Fem Art Mid. 177.0MonophasicFem Art Mid. 131.0Monophasic Fem Art Dist. 133.0MonophasicFem Art Dist. 191.0Monophasic Pop Art(Fossa) 101.0MonophasicPop Art(AK) 100.0Monophasic RELIGIOUS ASSISTANT Prox. 73.0MonophasicPTA Prox. 115.0Monophasic RELIGIOUS ASSISTANT Dist. 118.0MonophasicPTA Dist. 87.0Monophasic ZANA Prox. 120.0MonophasicATA Prox. 75.0Monophasic DPA 38DPA 53Monophasic Findings Grayscale images of the bilateral lower extremity arterial vessels demonstrates moderate diffuse athe rosclerosis. Images are technically limited due to patient's body habitus Spectral waveforms demonstrate monophasic waveforms from the common femoral artery to the below-knee vessels. This is suggestive of more proximal inflow disease. Below the knee there is probable occlusion of the bilateral peroneal arteries. Diminished flow is no jan in the bilateral anterior tibial and posterior tibial vessels. Critical Notification Critical Value: No <Conclusion> 1. Monophasic waveforms throughout the bilateral lower extremity arterial vessels suggestive of more proximal inflow disease 2. Probable moderate diffuse below-knee disease bilaterally. Signed by : Kaleb Hutson, Electronically Approved : 11/03/2021 15:58:45
--- NOTE | 2021-11-03 16:36 | NUR ---
Discharge Note: PILLO JEROME [facility] Discharge instructions and discharge home medications reviewed with Patient and a copy given. All questions have been answered and understanding verbalized. The following instructions and handouts were given: information about medications, follow up appointments, wound care instructions, oxygen usage, diet, activity. Gave patient information and paperwork about follow up with Dr. Castañeda. Discontinued lines and drains: IV line in right forearm removed and IV line in left AC removed, catheter tip intact. Patient discharged to home with self care with family member, wheelchair used for mobility to discharge vehicle.
--- NOTE | 2021-11-05 17:21 | PDOC3 ---
[facility]-Discharge Summary Date of Admission: Date of Admission: Oct 31, 2021 Date of Discharge: Date of Discharge: Nov 03, 2021 Discharge Diagnosis: Discharge Diagnosis: Acute respiratory failure with hypoxia - CHF exacerbation due to lasix compliance difficulties. Negative COVID 19 results. This is less likely pneumonia or bronchitis given progressive history. Acute diastolic CHF - will diurese. Consult Cardiology Hyperkalemia - likely nutritional with CKD, will place on low K diet CKD 2 - will monitor renal function Right leg cellulitis - mild, will given IV vancomycin and rocephin, likely can de-escalate to PO keflex and doxycycline in the next 48 hours Moderate-severe protein calorie malnutrition - labor relations specialist to see Hypomagnesemia - will replace IV, monitor. Likely nutritional vs diuretic induced Anemia - likely of chronic disease. Will check iron levels Thrombocytopenia - no clear etiology. Will monitor Super morbid obesity - counseled on lifestyle modification H/o hepatitis C - undetectable virus in 2013 Anxiety with depression - cont home meds Asthma - prn nebs GERD -PPI HLD - statin HTN - cont home meds Hypothyroidism - cont home meds Chronic LE wounds - wound care to see. Consults: Consults: Per cardiology: 1. Acute on chronic diastolic CHF; echo with preserved LV systolic function. compensated 2. Hx of asthma with obstructive sleep apnea: noncompliant 3. Hypomagnesemia; replaced 4. Morbid obesity 5. HTN; controlled 6. Hypothyroidism 7. CKD 8. Bilateral leg pain and edema; LE US, arterial doppler pending 9. UTI; as per IM Recommendations Secondary prevention measures Lasix therapy Reinforced treatment compliance with Lasix and CPAP Outpatient MPI as arranged Follow up has been scheduled with Dr. Quinteros December 05Saturday at 2PM 6 min walk pending .Awaiting LE venous and arterial duplex report Justicifation of Admission Dx: Justifications for Admission: Justification of Admission Dx: N/A SAMAN QUINTEROS MD 11/03/21 1518: CARDIO Progress Notes Assessment Assessment Patient seen and examined She reports feeling better today. I agree with our nurse practitioners assessment and plan. Acute on chronic diastolic CHF; echo with preserved LV systolic function. The patient is now compensated. Continuing present treatment. Outpatient testing and follow-up. Hx of asthma with obstructive sleep apnea: noncompliant. Symptomatically improved. Hypomagnesemia; replaced Morbid obesity HTN; controlled Hypothyroidism CKD Bilateral leg pain and edema; LE US, arterial doppler pending UTI; as per IM Hospital Course: Hospital Course: 71 year old female w/ PMHx hepatitis C, anxiety with depression, asthma, GERD, HLD, HTN, hypothyroidism, chronic CHF, chronic LE wounds who presents to ED c/o 1 week of progressively worsening shortness of breath. She has but does not take Lasix, notes she can't get up to get to the bathroom and has wet herself often. She becomes short of breath even moving from her wheelchair to get to the bathroom. Is rather sedentary at baseline. She notes worsening swelling of her right leg worse than her left with circumferential redness and some serous drainage. In ED moving from sitting she notably desaturates to 86% and was placed on NCO2. She denies any chest pain, dizziness, headache, new numbness or tingling, focal neuro deficits, pain with urination, fever, cough, abdominal pain, nausea, vomiting, diarrhea. No travel or recent sick contacts. Covid vaccinated and has had her booster. WBC 9.6, Hb 10.1, platelets 134, NA 143, K5.38, BUN 29, CR 1.3, glucose 105, calcium 8.3, bilirubin 0.4, AST 7, ALT 11, alk phos 107, NT proBNP 5038, high- sensitivity troponin is 11, albumin is 2.9, lactic acid is 1.1, magnesium is 1.4, rapid COVID-19 is negative. ABG PaO2 59 Chest radiograph with interstitial opacities and cardiomegaly. EKG sinus rhythm. Admitted for further care. 11/01: Feeling improved still on O2. Significant diuresis with IV Lasix. Cardio logy is ordered arterial and venous Dopplers. She is requesting podiatry consultation given and nail care. No chest pain at this time. Significant intertrigo started on nystatin powder 11/02/2021 No acute events overnight. Patient seen and examined bedside. Adequate urine output with IV Lasix therapy. We will continue with IV Lasix. Pending results of arterial venous Dopplers. Patient's chart, labs, images were reviewed and discussed with RN Patient refused to go to care home facility as per recommendations. Home health set up with home oxygen. Please see cardiology recommendations above. We will continue with diuresis as much as feasible. Patient has history of noncompliance. Rest of hospital course was uneventful. Disposition: Disposition/Orders: D/C to Home w/ HH Activity: Activity: Resume previous activity Diet: Diet: Cardiac Medications: Home Meds Active Scripts Doxycycline Hyclate (DOXYCYCLINE HYCLATE) 100 Mg Capsule, 1 CAP PO BID for lower extremity wounds for 5 Days, #10 CAP Prov:MIKE MASON MD 11/03/21 Hydrocodone/Acetaminophen (Hydrocodone-Acetamin 5-325 mg) 1 Each Tablet, 1 EACH PO Q6HRS for 14 Days, #20 TAB Prov:ISABEL LOPEZ DO 11/14/20 Acetaminophen (TYLENOL) 325 Mg Tablet, 650 MG PO PRN Q4HRS PRN for TEMP OVER 100.4F for 30 Days, #120 TAB Prov:EULALIA MILLS MD 08/31/20 Magnesium Oxide (Magnesium Oxide) 400 Mg Tablet, 400 MG PO BIDAC for Hypomagnesemia for 30 Days, #60 TAB Prov:EULALIA MILLS MD 08/31/20 Alprazolam (ALPRAZOLAM) 0.5 Mg Tablet, 0.5 MG PO PRN TID PRN for ANXIETY / AGITATION for 6 Days, #15 TAB Prov:EULALIA MILLS MD 08/31/20 Diclofenac Sodium (VOLTAREN) 100 Gm Gel..gram., 1 LIZA TP BID for Osteoarthritis for 30 Days, #60 EACH 2 Refills Prov:EULALIA MILLS MD 08/10/19 Reported Medications Losartan Potassium (LOSARTAN POTASSIUM) 100 Mg Tablet, 100 MG PO DAILY for HYPERTENSION, TAB 10/31/21 Levothyroxine Sodium (SYNTHROID) 200 Mcg Tablet, 350 MCG PO DAILYAC for THYROID SUPPLEMENT, #30 TAB 0 Refills 10/31/21 Levothyroxine Sodium (SYNTHROID) 200 Mcg Tablet, 200 MCG PO DAILYAC for THYROID SUPPLEMENT, #30 TAB 0 Refills 10/31/21 Nystatin (NYSTATIN) 15 Gm Powder, 1 LIZA TP BID for yeast for 7 Days, #1 BOTTLE 0 Refills apply to affected area(s) 10/26/20 Pramipexole Di-Hcl (MIRAPEX) 1 Mg Tablet, 1 MG PO HS for restless leg, TAB 09/23/20 Gabapentin (GABAPENTIN) 800 Mg Tablet, 800 MG PO TID for NEUROGENIC PAIN, TAB 09/23/20 Ferrous Sulfate (FERROUS SULFATE) 325 Mg Tablet, 1 TAB PO DAILY for anemia, #30 TAB 3 Refills 09/23/20 Furosemide (FUROSEMIDE) 40 Mg Tablet, 1 TAB PO DAILY for diuretic, #30 TAB 5 Refills 09/23/20 Docusate Sodium (COLACE) 100 Mg Capsule, 1 CAP PO DAILY for Constipation for 15 Days, #15 CAP 0 Refills 08/08/19 Aspirin (ASPIRIN) 81 Mg Tab.chew, 81 MG PO DAILY for Heart Health, TAB.CHEW 08/08/19 Famotidine (FAMOTIDINE) 20 Mg Tablet, 20 MG PO BID for GERD, TAB 08/08/19 Budesonide/Formoterol Fumarate (SYMBICORT 160-4.5 MCG INHALER) 10.2 Gm Hfa.aer.ad, 2 PUFF IH BID 10/03/13 Citalopram Hydrobromide (CITALOPRAM HBR) 40 Mg Tablet, 40 MG PO DAILY 10/03/13 Metoprolol Succinate (METOPROLOL SUCCINATE ( XL )) 100 Mg Tab.er.24h, 100 MG PO DAILY 10/03/13 Scheduled Aspirin (Aspirin), 81 MG PO DAILY, (Reported) Budesonide/Formoterol Fumarate (Symbicort 160-4.5 Mcg Inhaler), 2 PUFF IH BID, (Reported) Citalopram Hydrobromide (Citalopram Hbr), 40 MG PO DAILY, (Reported) Diclofenac Sodium (Voltaren), 1 LIZA TP BID Docusate Sodium (Colace), 1 CAP PO DAILY, (Reported) Doxycycline Hyclate (Doxycycline Hyclate), 1 CAP PO BID Famotidine (Famotidine), 20 MG PO BID, (Reported) Ferrous Sulfate (Ferrous Sulfate), 1 TAB PO DAILY, (Reported) Furosemide (Furosemide), 1 TAB PO DAILY, (Reported) Gabapentin (Gabapentin), 800 MG PO TID, (Reported) Hydrocodone/Acetaminophen (Hydrocodone-Acetamin 5-325 mg), 1 EACH PO Q6HRS Levothyroxine Sodium (Synthroid), 200 MCG PO DAILYAC, (Reported) Levothyroxine Sodium (Synthroid), 350 MCG PO DAILYAC, (Reported) Losartan Potassium (Losartan Potassium), 100 MG PO DAILY, (Reported) Magnesium Oxide (Magnesium Oxide), 400 MG PO BIDAC Metoprolol Succinate (Metoprolol Succinate ( Xl )), 100 MG PO DAILY, (Reported) Nystatin (Nystatin), 1 LIZA TP BID, (Reported) Pramipexole Di-Hcl (Mirapex), 1 MG PO HS, (Reported) Scheduled PRN Acetaminophen (Tylenol), 650 MG PO PRN Q4HRS PRN for TEMP OVER 100.4F Alprazolam (Alprazolam), 0.5 MG PO PRN TID PRN for ANXIETY / AGITATION Total Time: Total Time: Total time spent was 40 minutes in preparing scripts, discharge planning with SWI and RN and preparing this discharge summary Patient seen and examined on day of discharge. No acute abnormal findings. Patient has a current or prior documentation of LVEF <55% with diastolic dysfunction. The patient is prescribed already taking KELLY inhibitor/ARB/or beta-mika Justicifation of Admission Dx: Justifications for Admission: Justification of Admission Dx: N/A MIKE MASON MD Nov 05, 2021 17:21
== END 2021-11-03 16:36 | disposition home or self-care (01) | DRG 291 ==
LOC: ER 12:04 → ED HOLD 14:46 → 6 SOUTH 18:11
PROVIDERS: ADMIT Internal Medicine; ATTEND Internal Medicine
DX: I13.0 Hypertensive heart and chronic kidney disease with heart failure and stage 1 through stage 4 chronic kidney disease, or unspecified chronic kidney disease (principal); I50.33 Acute on chronic diastolic (congestive) heart failure; J96.01 Acute respiratory failure with hypoxia; E43 Unspecified severe protein-calorie malnutrition; N39.0 Urinary tract infection, site not specified; L03.115 Cellulitis of right lower limb; Z68.43 Body mass index [BMI] 50.0-59.9, adult; D63.8 Anemia in other chronic diseases classified elsewhere; D69.6 Thrombocytopenia, unspecified; E03.9 Hypothyroidism, unspecified; E66.01 Morbid (severe) obesity due to excess calories; E78.00 Pure hypercholesterolemia, unspecified; E78.5 Hyperlipidemia, unspecified; E83.42 Hypomagnesemia; E87.5 Hyperkalemia; F41.8 Other specified anxiety disorders; G25.81 Restless legs syndrome; G47.33 Obstructive sleep apnea (adult) (pediatric); J44.9 Chronic obstructive pulmonary disease, unspecified; K21.9 Gastro-esophageal reflux disease without esophagitis; L30.4 Erythema intertrigo; N18.30 Chronic kidney disease, stage 3 unspecified; R32 Unspecified urinary incontinence; T50.1X5A Adverse effect of loop [high-ceiling] diuretics, initial encounter; Z20.822 Contact with and (suspected) exposure to COVID-19; Z82.49 Family history of ischemic heart disease and other diseases of the circulatory system; Z83.3 Family history of diabetes mellitus; Z87.442 Personal history of urinary calculi; Z87.891 Personal history of nicotine dependence; Z90.710 Acquired absence of both cervix and uterus; Z91.14 Patient's other noncompliance with medication regimen; Z91.19 Patient's noncompliance with other medical treatment and regimen; F32.A Depression, unspecified; F41.9 Anxiety disorder, unspecified; Z88.8 Allergy status to other drugs, medicaments and biological substances
CPT/HCPCS: 96365; 96366; 96367; 96375; 99285; C8929; 36415; 36600; 71046; 80048; 80053; 80061; 80202; 81001; 82565; 82805; 82962; 83540; 83550; 83605; 83735; 83880; 84443; 84484; 85025; 87040; 87086; 87426; 93005; 93923; 93970; 94640; 94760; J0696; J1650; J1940; J3370; J3475; J7040; Q9956; U0003; 97530-GP; 97535-GO; G0378; J7613; J7626

== ENCOUNTER 2021-11-14 17:19 | Observation (INO) | payer MEDICARE ==
[~2021-11-14] VITALS: Ht 160 cm; Wt 140.0 kg
[~2021-11-14 17:19] MED LIST changes: +DOXY100T PO; +THIA500T PO
[2021-11-14 18:48] LABS: BASO % 0 % (0-3); EOS # 0.2 x10^3/uL (0.0-0.7); EOS % 3 % (0-3); HEMATOCRIT 35.5 % (36.0-47.0); HEMOGLOBIN 11.1 g/dL (12.0-15.5); LYMPH # 1.3 x10^3/uL (1.0-4.8); LYMPH % 19 % (24-48); MEAN CORPUSCULAR HEMOGLOBIN 30 pg (25-35); MEAN CORPUSCULAR HGB CONC 31 g/dL (31-37); MEAN CORPUSCULAR VOLUME 95 fL (79-100); MONO # 0.5 x10^3/uL (0.0-1.1); MONO % 7 % (0-9); NEUT # 4.9 x10^3/uL (1.8-7.7); NEUT % 71 % (31-73); PLATELET COUNT 146 x10^3/uL (140-400); RED BLOOD COUNT 3.74 x10^6/uL (3.50-5.40); RED CELL DISTRIBUTION WIDTH 17.7 % (11.5-14.5); WHITE BLOOD COUNT 6.9 x10^3/uL (4.0-11.0)
[2021-11-14 18:57] LABS: CALCIUM 8.6 mg/dL (8.5-10.1); CREATININE 1.2 mg/dL (0.6-1.0); GFR 44.5; POTASSIUM 4.1 mmol/L (3.5-5.1)
[2021-11-14 19:03] LABS: ALBUMIN 3.2 g/dL (3.4-5.0); ALBUMIN/GLOBULIN RATIO 0.6 (1.0-1.7); MAGNESIUM 1.5 mg/dL (1.8-2.4); TOTAL BILIRUBIN 0.4 mg/dL (0.2-1.0); TOTAL PROTEIN 8.5 g/dL (6.4-8.2)
--- NOTE | 2021-11-14 19:50 | PHYS DOC ---
Past Medical History Past Medical History: Anxiety, Asthma, CHF, Depression, GERD, High Cholesterol, Hypertension, Hypothyroid, Hepatitis, MRSA, Pneumonia, UTI, Other Additional Past Medical Histor: HCV,periph neurop,L FOOT WOUND Past Surgical History: Other Additional Past Surgical Histo: wrist,knee scope,rt carpqal tunnel Smoking Status: Never Smoker Alcohol Use: None Drug Use: None General Adult EDM: Chief Complaint: LOWER EXT PAIN HPI: HPI: Patient is a 71 year old female who presents with chief complaint of bilateral lower extremity pain. Patient was recently admitted to the hospital with the ultimate goal of obtaining rehab/half-way on discharge. Patient states that she refused and was discharged home, but then changed her mind. Patient states she was not allowed to then go to the half-way facility upon being discharged home. Patient also complains of malodorous urine and urinary incontinence, which she would like to have addressed. She reports that the chronic weeping wounds to her lower extremities are worse than usual. Patient has no other complaints at this time. Review of Systems: Review of Systems: Constitutional: Denies fever, chills or generalized weakness Eyes: Denies change in visual acuity, visual field deficits or discharge HENT: Denies ear pain, nasal congestion or sore throat Respiratory: Denies cough or shortness of breath Cardiovascular: Denies chest pain, palpitations or edema GI: Denies abdominal pain, nausea, vomiting, bloody stools or diarrhea : See HPI Musculoskeletal: See HPI Integument: See HPI Neurologic: Denies headache, focal weakness or sensory changes Heart Score: C/O Chest Pain: No Allergies: Allergies: Allergies Coded Allergies Type Severity Reaction Last Updated Verified amoxicillin trihydrate Allergy Intermediate 11/14/21 Yes celecoxib Allergy Intermediate 11/14/21 Yes potassium clavulanate Allergy Intermediate 11/14/21 Yes I S O L A T I O N *CONTACT* Allergy Unknown 11/14/21 Yes Physical Exam: PE: Constitutional: Morbidly obese, disheveled, no acute distress, chronically ill- appearing. HENT: Normocephalic, atraumatic, bilateral external ears normal, nose normal. Eyes: EOMI, conjunctiva normal, no discharge. Neck: Normal range of motion, no stridor. Skin: Chronic venous stasis dermatitis rash noted to bilateral lower extremities extending to mid calf. Extremities: Bilateral lower extremities tender, no cyanosis, no clubbing, ROM intact, pitting edema noted to bilateral lower extremities. Neurologic: Alert and oriented x4, no focal deficits noted. Current Patient Data: Labs: Laboratory Tests Test 11/14/21 18:40 White Blood Count 6.9 x10^3/uL (4.0-11.0) Red Blood Count 3.74 x10^6/uL (3.50-5.40) Hemoglobin 11.1 g/dL (12.0-15.5) L Hematocrit 35.5 % (36.0-47.0) L Mean Corpuscular Volume 95 fL (79-100) Mean Corpuscular Hemoglobin 30 pg (25-35) Mean Corpuscular Hemoglobin Concent 31 g/dL (31-37) Red Cell Distribution Width 17.7 % (11.5-14.5) H Platelet Count 146 x10^3/uL (140-400) Neutrophils (%) (Auto) 71 % (31-73) Lymphocytes (%) (Auto) 19 % (24-48) L Monocytes (%) (Auto) 7 % (0-9) Eosinophils (%) (Auto) 3 % (0-3) Basophils (%) (Auto) 0 % (0-3) Neutrophils # (Auto) 4.9 x10^3/uL (1.8-7.7) Lymphocytes # (Auto) 1.3 x10^3/uL (1.0-4.8) Monocytes # (Auto) 0.5 x10^3/uL (0.0-1.1) Eosinophils # (Auto) 0.2 x10^3/uL (0.0-0.7) Basophils # (Auto) 0.0 x10^3/uL (0.0-0.2) Sodium Level 136 mmol/L (136-145) Potassium Level 4.1 mmol/L (3.5-5.1) Chloride Level 102 mmol/L (98-107) Carbon Dioxide Level 27 mmol/L (21-32) Anion Gap 7 (6-14) Blood Urea Nitrogen 35 mg/dL (7-20) H Creatinine 1.2 mg/dL (0.6-1.0) H Estimated GFR (Cockcroft-Gault) 44.5 BUN/Creatinine Ratio 29 (6-20) H Glucose Level 108 mg/dL (70-99) H Calcium Level 8.6 mg/dL (8.5-10.1) Magnesium Level 1.5 mg/dL (1.8-2.4) L Total Bilirubin 0.4 mg/dL (0.2-1.0) Aspartate Amino Transferase (AST) 22 U/L (15-37) Alanine Aminotransferase (ALT) 10 U/L (14-59) L Alkaline Phosphatase 118 U/L (46-116) H Total Protein 8.5 g/dL (6.4-8.2) H Albumin 3.2 g/dL (3.4-5.0) L Albumin/Globulin Ratio 0.6 (1.0-1.7) L Laboratory Tests 11/14/21 18:40 Laboratory Tests 11/14/21 18:40 Vital Signs: Vital Signs Date Time Temp Pulse Resp B/P (MAP) Pulse Ox O2 Delivery O2 Flow Rate FiO2 11/14/21 17:44 98.5 76 18 138/70 (92) 97 Room Air 98.5 Course & Med Decision Making: Course & Med Decision Making Pertinent Labs and Imaging studies reviewed. (See chart for details) Patient is a 71-year-old female who presents to the emergency department day after she had changed her mind about being admitted to a half-way facility. She has continued complaints of bilateral lower extremity pain. Additionally she is concerned that she is incontinent to urine and wishes to have this evaluated. Dr. Brian montgomery accepts patient for admission and assessment for admission to half-way facility. Carmenza Disclaimer: Carmenza Disclaimer: This electronic medical record was generated, in whole or in part, using a voice recognition dictation system. Departure Departure Impression: Primary Impression: Incontinence in female Additional Impressions: Physical deconditioning Stasis dermatitis of both legs Bilateral lower leg cellulitis Disposition: ADMITTED INPATIENT Admitting Physician: DULCE MARIA Thurman) Condition: GUARDED Referrals: Aggie VILLA MD (PCP) KARLY STILES Nov 14, 2021 19:50
--- NOTE | 2021-11-14 22:12 | HP ---
DATE OF SERVICE: 11/14/2021 ADMIT DATE: 11/14/2021 CHIEF COMPLAINT: Lower extremity pain. HISTORY OF PRESENT ILLNESS: The patient is a pleasant 71-year-old female presents to the ER with lower extremity pain. She was recently hospitalized and told to go to skilled after hospitalization, but she refused to go. We then discharged her to home. Now, she realizes that she should go to skilled, so she is back to the ER. I discussed the case with ER physician. We are going to admit the patient and try to get her to group home. PAST MEDICAL HISTORY: Noncompliance, anxiety, asthma, CHF, depression, GERD, hyperlipidemia, hypertension, hypothyroidism, hepatitis, MRSA, pneumonia, UTI, hep C, peripheral neuropathy, left foot wound, wrist and knee surgery, carpal tunnel surgery. ALLERGIES: AMOXICILLIN, CELEBREX, POTASSIUM, CLAVULANIC ACID. FAMILY HISTORY: Hypertension. SOCIAL HISTORY: She does not drink, smoke or take drugs. MEDICATIONS: Reviewed, please refer to the MRAD. REVIEW OF SYSTEMS: GENERAL: No history of weight change, weakness or fevers. SKIN: No bruising, hair changes or rashes. EYES: No blurred, double or loss of vision. NOSE AND THROAT: No history of nosebleeds, hoarseness or sore throat. HEART: No history of palpitations, chest pain or shortness of breath on exertion. LUNGS: Denies cough, hemoptysis, wheezing or shortness of breath. GASTROINTESTINAL: Denies changes in appetite, nausea, vomiting, diarrhea or constipation. GENITOURINARY: No history of frequency, urgency, hesitancy or nocturia. NEUROLOGIC: Denies history of numbness, tingling, tremor or weakness. PSYCHIATRIC: No history of panic, anxiety or depression. ENDOCRINE: No history of heat or cold intolerance, polyuria or polydipsia. EXTREMITIES: She complains of lower extremity pain. PHYSICAL EXAMINATION: VITALS: Within normal limits and are stable. GENERAL: No apparent distress. Alert and oriented. HEENT: Normal cephalic atraumatic, external auditory canals are patent EYES: Extraocular muscles are intact, pupils are equally round and reactive to light and accommodation MUSCULOSKELETAL: Well developed, well nourished, good range of motion ENDOCRINE: No thyromegaly was palpated LYMPHATICS: No cervical chain or axillary nodes were noted HEMATOPOIETIC: No bruising NECK: Supple, no JVD, no thyromegaly was noted. LUNGS: Clear to auscultation in all lung davidson without rhonchi or wheezing. HEART: RRR, S1, S2 present. Peripheral pulses intact, no obvious murmurs were noted. ABDOMEN: Soft, nontender. Positive bowel sounds no organomegaly, normal bowel sounds. EXTREMITIES: Without any cyanosis, clubbing, or edema. Pedal pulses intact, Homans sign is negative. NEUROLOGIC: Normal speech, normal tone. A and O x 3, moves all extremities, no obvious focal deficits. PSYCHIATRIC: Normal affect, normal mood. Stable. SKIN: No ulcerations or rashes, good skin turgor, no jaundice. VASCULAR: Good capillary refill, neurovascular bundle appears to be intact. LABORATORY DATA: White count 6.9, hemoglobin 11.1, platelets 146. Electrolytes are normal other than a BUN 35, creatinine 1.2. Magnesium is low at 1.5, alk phos high at 118, albumin low at 3.2. ASSESSMENT AND PLAN: Probable early failure to thrive. The patient needs aggressive physical therapy, occupational therapy and probably needs to be transferred to group home or long-term care. Home meds. Deep venous thrombosis prophylaxis. Full code. PT, OT. SARAH/AMRIT DR: SARAH/radha TID: [id number]
[2021-11-14] MEDS ORDERED: ACETAMINOPHEN 325 MG TABLET. PO PRN (23:00)
[2021-11-14] MEDS ORDERED: CALCIUM CARBONATE 500 MG TAB.CHEW PO PRN (23:00)
[2021-11-15] MEDS ORDERED: ACETAMINOPHEN 325 MG TABLET. PO PRN (02:15)
[2021-11-15] MEDS: FAMOTIDINE 20 MG TABLET. PO SCH ×3 (03:33→21:00)
[2021-11-15] MEDS: PRAMIPEXOLE 1 MG TABLET. PO SCH ×2 (03:33→21:00)
[2021-11-15] MEDS: HYDROcodone/APAP 5/325MG 1 TAB TABLET PO PRN ×3 (03:34→17:50)
[2021-11-15] MEDS: ALBUTEROL SULFATE 2.5 MG/3 ML NEBU. NEB SCH ×4 (07:30→18:23)
[2021-11-15] MEDS: BUDESONIDE 0.5 MG/2 ML NEBU. NEB SCH ×2 (07:30→18:23)
[2021-11-15] MEDS: NYSTATIN TOPICAL POWDER 15GM BOTTLE. TP SCH ×4 (07:56→21:01)
[2021-11-15] MEDS: LOSARTAN POTASSIUM 50 MG TABLET. PO SCH (07:57)
[2021-11-15] MEDS: ASPIRIN CHEWABLE 81 MG TABLET. PO SCH (07:57)
[2021-11-15] MEDS: GABAPENTIN 400 MG CAPSULE. PO SCH ×3 (07:57→21:00)
[2021-11-15] MEDS: THIAMINE 100 MG TABLET. PO SCH (07:57)
[2021-11-15] MEDS: DOCUSATE SODIUM 100 MG CAPSULE. PO SCH (07:57)
[2021-11-15] MEDS: FERROUS SULFATE 325 MG TABLET. PO SCH (07:57)
[2021-11-15] MEDS: LEVOTHYROXINE 100 MCG TABLET PO SCH (07:58)
[2021-11-15] MEDS: FUROSEMIDE 40 MG TABLET. PO SCH (07:58)
[2021-11-15] MEDS: CITALOPRAM 20 MG TABLET. PO SCH (07:58)
[2021-11-15] MEDS: METOPROLOL SUCC 24HR ER 100 MG TAB.ER.24H. PO SCH (07:58)
[2021-11-15] MEDS: MAGNESIUM OXIDE 400 MG TABLET PO SCH ×2 (07:58→17:49)
[2021-11-15 09:00] VITALS: BP 142/54
[2021-11-15] MEDS ORDERED: MAGNESIUM SULFATE 2GM 50 ML IV ONE (09:00)
--- NOTE | 2021-11-15 10:15 | NUR ---
Arrived to unit by cart from ER. Alert and oriented x's 4. No c/o at this time. Need assistance to move from cart to bed. Used cane and assist x's 2. Noted pt's legs cellulitis/dry/flakey/crusty. Applied thick layer of lotion after scrub legs prior. Noted redness under right breast and Panus folds. IV site on right chest. Oriented to room and controls. Side rails up x's 2 with call light in reach. Discussed plan of care and verbalized understanding. Cont. monitor.
--- NOTE | 2021-11-15 10:28 | PDOC ---
[facility] PROGRESS NOTE Date of Service DOS: DATE: 11/15/21 TIME: 10:26 Chief Complaint Chief Complaint Leg pain, weakness, fall risk very morbid obesity, BMI 55 refused skilled on last discharge anxiety disorder , asthma, chronic diastolic CHF, depression, GERD, hyperlipidemia, hypertension, hypothyroidism, hepatitis, hep C, peripheral neuropathy, l History of Present Illness History of Present Illness feels well today, asks when she will get out of ER, patient sitting in ER for a day, hosptital still full PT and OT ordered discussed plan with SW Vitals/I&O Vitals/I&O: Vital Signs Date Time Temp Pulse Resp B/P (MAP) Pulse Ox O2 Delivery O2 Flow Rate FiO2 11/15/21 09:46 93 Room Air 11/15/21 09:00 98.5 82 18 142/54 (83) 98.5 Physical Exam General: Alert, Oriented X3, Cooperative, No acute distress Heart: Regular rate, No murmurs Lungs: Clear Abdomen: Normal bowel sounds (obese) Extremities: No clubbing Skin: No rashes Labs Labs: Laboratory Tests Test 11/14/21 18:40 11/14/21 20:30 White Blood Count 6.9 x10^3/uL (4.0-11.0) Red Blood Count 3.74 x10^6/uL (3.50-5.40) Hemoglobin 11.1 g/dL (12.0-15.5) Hematocrit 35.5 % (36.0-47.0) Mean Corpuscular Volume 95 fL (79-100) Mean Corpuscular Hemoglobin 30 pg (25-35) Mean Corpuscular Hemoglobin Concent 31 g/dL (31-37) Red Cell Distribution Width 17.7 % (11.5-14.5) Platelet Count 146 x10^3/uL (140-400) Neutrophils (%) (Auto) 71 % (31-73) Lymphocytes (%) (Auto) 19 % (24-48) Monocytes (%) (Auto) 7 % (0-9) Eosinophils (%) (Auto) 3 % (0-3) Basophils (%) (Auto) 0 % (0-3) Neutrophils # (Auto) 4.9 x10^3/uL (1.8-7.7) Lymphocytes # (Auto) 1.3 x10^3/uL (1.0-4.8) Monocytes # (Auto) 0.5 x10^3/uL (0.0-1.1) Eosinophils # (Auto) 0.2 x10^3/uL (0.0-0.7) Basophils # (Auto) 0.0 x10^3/uL (0.0-0.2) Sodium Level 136 mmol/L (136-145) Potassium Level 4.1 mmol/L (3.5-5.1) Chloride Level 102 mmol/L (98-107) Carbon Dioxide Level 27 mmol/L (21-32) Anion Gap 7 (6-14) Blood Urea Nitrogen 35 mg/dL (7-20) Creatinine 1.2 mg/dL (0.6-1.0) Estimated GFR (Cockcroft-Gault) 44.5 BUN/Creatinine Ratio 29 (6-20) Glucose Level 108 mg/dL (70-99) Calcium Level 8.6 mg/dL (8.5-10.1) Magnesium Level 1.5 mg/dL (1.8-2.4) Total Bilirubin 0.4 mg/dL (0.2-1.0) Aspartate Amino Transf (AST/SGOT) 22 U/L (15-37) Alanine Aminotransferase (ALT/SGPT) 10 U/L (14-59) Alkaline Phosphatase 118 U/L (46-116) Total Protein 8.5 g/dL (6.4-8.2) Albumin 3.2 g/dL (3.4-5.0) Albumin/Globulin Ratio 0.6 (1.0-1.7) Lactic Acid Level 1.7 mmol/L (0.4-2.0) Assessment and Plan Assessmemt and Plan to skilled Problems Medical Problems: (1) Bilateral lower leg cellulitis Status: Acute (2) Incontinence in female Status: Acute (3) Stasis dermatitis of both legs Status: Acute Comment Review of Relevant I have reviewed the following items mikael (where applicable) has been applied. Medications: Current Medications Medications (Trade) Dose Ordered Sig/Doris Route PRN Reason Start Time Stop Time Status Last Admin Dose Admin Acetaminophen (Tylenol) 650 mg PRN Q4HRS PRN PO MILD PAIN / TEMP > 100.3'F 11/14/21 23:00 11/14/21 23:29 Nystatin (Nystop) 1 soham QID TP 11/14/21 23:30 11/15/21 07:56 Calcium Carbonate/ Glycine (Tums) 500 mg PRN AFTMEALHC PRN PO INDIGESTION 11/14/21 23:00 11/14/21 23:28 Aspirin (Aspirin Chewable) 81 mg DAILY08 PO 11/15/21 08:00 11/15/21 07:57 Docusate Sodium (Colace) 100 mg DAILY PO 11/15/21 09:00 11/15/21 07:57 Famotidine (Pepcid) 20 mg BID PO 11/15/21 03:30 11/15/21 07:57 Ferrous Sulfate (Feosol) 325 mg DAILY08 PO 11/15/21 08:00 11/15/21 07:57 Furosemide (Lasix) 40 mg DAILY PO 11/15/21 09:00 11/15/21 07:58 Acetaminophen/ Hydrocodone Bitart (Lortab 5/325) 1 tab PRN Q6HRS PRN PO PAIN MOD/SEV 11/15/21 03:16 11/15/21 09:46 Metoprolol Succinate (Toprol Xl) 100 mg DAILY PO 11/15/21 09:00 11/15/21 07:58 Pramipexole Dihydrochloride (miraPEX) 1 mg HS PO 11/15/21 03:30 11/15/21 03:33 Budesonide (Pulmicort) 0.5 mg RTBID NEB 11/15/21 08:00 11/15/21 07:30 Citalopram Hydrobromide (CeleXA) 40 mg DAILY PO 11/15/21 09:00 11/15/21 07:58 Gabapentin (Neurontin) 800 mg TID PO 11/15/21 09:00 11/15/21 07:57 Levothyroxine Sodium (Synthroid) 200 mcg DAILY06 PO 11/15/21 06:00 11/15/21 07:58 Losartan Potassium (Cozaar) 100 mg DAILY PO 11/15/21 09:00 11/15/21 07:57 Magnesium Oxide (Magnesium Oxide) 400 mg BIDAC PO 11/15/21 07:30 11/15/21 07:58 Thiamine Mononitrate (Vitamin B-1) 500 mg DAILY PO 11/15/21 09:00 11/15/21 07:57 Albuterol Sulfate (Ventolin Neb Soln) 2.5 mg RTQID NEB 11/15/21 08:00 11/15/21 07:30 Magnesium Sulfate 50 ml @ 25 mls/hr 1X ONCE IV 11/15/21 09:00 11/15/21 10:59 11/15/21 09:46 Justifications for Admission Other Justification NNAMDI FRENCH MD Nov 15, 2021 10:28
[2021-11-15 11:00] VITALS: BP 129/65
[2021-11-15 14:40] VITALS: BP 116/50
[2021-11-15] MEDS: ALPRAZolam 0.5 MG TABLET PO PRN ×2 (14:45→21:21)
[2021-11-15 19:17] VITALS: BP 98/43
[2021-11-15 21:51] LABS: BILIRUBIN,URINE NEGATIVE (NEG); CLARITY,URINE CLEAR; COLOR,URINE YELLOW; NITRITE,URINE POSITIVE (NEG); PROTEIN,URINE NEGATIVE (NEG-TRACE); UROBILINOGEN,URINE 0.2 mg/dL (0.2 mg/dL)
[2021-11-15 21:56] LABS: BACTERIA,URINE MANY /HPF (0-FEW)
[2021-11-15 21:58] LABS: WBC,URINE 20-40 /HPF (0-4)
[2021-11-15 22:01] LABS: YEAST,URINE PRESENT /HPF
[2021-11-15 22:44] VITALS: BP 109/41
[2021-11-16 03:17] VITALS: BP 121/52
[2021-11-16] MEDS: LEVOTHYROXINE 100 MCG TABLET PO SCH (06:00)
[2021-11-16] MEDS: ALBUTEROL SULFATE 2.5 MG/3 ML NEBU. NEB SCH ×2 (07:06→10:52)
[2021-11-16] MEDS: BUDESONIDE 0.5 MG/2 ML NEBU. NEB SCH (07:11)
[2021-11-16 07:15] VITALS: BP 133/63
[2021-11-16] MEDS: NYSTATIN TOPICAL POWDER 15GM BOTTLE. TP SCH ×2 (09:00→13:00)
[2021-11-16] MEDS: METOPROLOL SUCC 24HR ER 100 MG TAB.ER.24H. PO SCH (09:08)
[2021-11-16] MEDS: GABAPENTIN 400 MG CAPSULE. PO SCH ×2 (09:08→14:00)
[2021-11-16] MEDS: LOSARTAN POTASSIUM 50 MG TABLET. PO SCH (09:09)
[2021-11-16] MEDS: THIAMINE 100 MG TABLET. PO SCH (09:09)
[2021-11-16] MEDS: FUROSEMIDE 40 MG TABLET. PO SCH (09:10)
[2021-11-16] MEDS: ASPIRIN CHEWABLE 81 MG TABLET. PO SCH (09:10)
[2021-11-16] MEDS: FERROUS SULFATE 325 MG TABLET. PO SCH (09:10)
[2021-11-16] MEDS: CITALOPRAM 20 MG TABLET. PO SCH (09:10)
[2021-11-16] MEDS: DOCUSATE SODIUM 100 MG CAPSULE. PO SCH (09:11)
[2021-11-16] MEDS: FAMOTIDINE 20 MG TABLET. PO SCH (09:18)
[2021-11-16] MEDS: MAGNESIUM OXIDE 400 MG TABLET PO SCH (09:19)
--- NOTE | 2021-11-16 10:38 | SNU/HH DC ---
DISCHARGE WITH HOME HEALTH DISCHARGE INFORMATION: Final Diagnosis: Problems Medical Problems: (1) Bilateral lower leg cellulitis Status: Acute (2) Incontinence in female Status: Acute (3) Stasis dermatitis of both legs Status: Acute Condition on Discharge: Stable CODE STATUS: Code Status: Full HOME HEALTH: Face to Face: I certify this patient is under my care and that I, or a nurse practitioner or physician's radiology practitioner assistant working with me, had a face to face encounter that meets the physician face to face encounter requirements with this patient on []. Medical Complications: Other (Chronic lower extremity wounds multiple comorbidities) Custodial For: Assess & Educate Safety RN For Eval/Treatment: Yes Physical Therapy For: Evalulation/Treatment Occupational Therapy For: Evaluation/Treatment Home Health Aide For: Self-care WORKERS COMPENSATION CLAIMS ASSISTANT For: Community Resources Pt Meets Homebound Status: Unsteady balance w/ amb, POST DISCHARGE ORDERS: Activity Instructions for Disc: Activity as tolerated, Progressive ambulation Weight Bearing Status after Di: No restrictions, As tolerated DIET AFTER DISCHARGE: Cardiac Wound/Incision Care: Keep wound/cast CDI, Other, see below CHECKS AFTER DISCHARGE: Checks after discharge: Check blood press - daily, Check blood sugar, ac/hs, Check your Temp as needed, Weigh Yourself Daily TREATMENT/EQUIPMENT ORDERS: Adaptive Equipment Issued: Commode Discharge Respiratory Equipmen: Oxygen CERTIFICATION STATEMENT: Certification Statement: Certification Statement: Based on the above finding, I certify that this patient is confined to the home and needs intermittent detention care, physical therapy and/or speech therapy, or continues to need occupational therapy.~ This patient is under my care, and I have initiated the establishment of the plan of care.~ This patient will be followed by myself or a community physician who will periodically review the plan of care. Home Meds Active Scripts Thiamine Hcl (THIAMINE HCL) 500 Mg Tablet, 500 MG PO DAILY for chf for 30 Days, #30 TAB 2 Refills Prov:MIKE MASON MD 11/08/21 Hydrocodone/Acetaminophen (Hydrocodone-Acetamin 5-325 mg) 1 Each Tablet, 1 EACH PO Q6HRS for 14 Days, #20 TAB Prov:ISABEL LOPEZ I DO 11/14/20 Acetaminophen (TYLENOL) 325 Mg Tablet, 650 MG PO PRN Q4HRS PRN for TEMP OVER 100.4F for 30 Days, #120 TAB Prov:EULALIA MILLS MD 08/31/20 Magnesium Oxide (Magnesium Oxide) 400 Mg Tablet, 400 MG PO BIDAC for Hypomagnesemia for 30 Days, #60 TAB Prov:EULALIA MILLS MD 08/31/20 Alprazolam (ALPRAZOLAM) 0.5 Mg Tablet, 0.5 MG PO PRN TID PRN for ANXIETY / AGITATION for 6 Days, #15 TAB Prov:EULALIA MILLS MD 08/31/20 Reported Medications Losartan Potassium (LOSARTAN POTASSIUM) 100 Mg Tablet, 100 MG PO DAILY for HYPERTENSION, TAB 10/31/21 Levothyroxine Sodium (SYNTHROID) 200 Mcg Tablet, 200 MCG PO DAILYAC for THYROID SUPPLEMENT, #30 TAB 0 Refills 10/31/21 Pramipexole Di-Hcl (MIRAPEX) 1 Mg Tablet, 1 MG PO HS for restless leg, TAB 09/23/20 Gabapentin (GABAPENTIN) 800 Mg Tablet, 800 MG PO TID for NEUROGENIC PAIN, TAB 09/23/20 Ferrous Sulfate (FERROUS SULFATE) 325 Mg Tablet, 1 TAB PO DAILY for anemia, #30 TAB 3 Refills 09/23/20 Furosemide (FUROSEMIDE) 40 Mg Tablet, 1 TAB PO DAILY for diuretic, #30 TAB 5 Refills 09/23/20 Docusate Sodium (COLACE) 100 Mg Capsule, 1 CAP PO DAILY for Constipation for 15 Days, #15 CAP 0 Refills 08/08/19 Aspirin (ASPIRIN) 81 Mg Tab.chew, 81 MG PO DAILY for Heart Health, TAB.CHEW 08/08/19 Famotidine (FAMOTIDINE) 20 Mg Tablet, 20 MG PO BID for GERD, TAB 08/08/19 Budesonide/Formoterol Fumarate (SYMBICORT 160-4.5 MCG INHALER) 10.2 Gm Hfa.aer.ad, 2 PUFF IH BID 10/03/13 Citalopram Hydrobromide (CITALOPRAM HBR) 40 Mg Tablet, 40 MG PO DAILY 10/03/13 Metoprolol Succinate (METOPROLOL SUCCINATE ( XL )) 100 Mg Tab.er.24h, 100 MG PO DAILY 10/03/13 Discontinued Reported Medications Levothyroxine Sodium (SYNTHROID) 200 Mcg Tablet, 350 MCG PO DAILYAC for THYROID SUPPLEMENT, #30 TAB 0 Refills 10/31/21 Nystatin (NYSTATIN) 15 Gm Powder, 1 LIZA TP BID for yeast for 7 Days, #1 BOTTLE 0 Refills apply to affected area(s) 10/26/20 JORGE ALBERTO HELTON III DO Nov 16, 2021 10:38
[2021-11-16 10:54] VITALS: BP 115/95
[2021-11-16] MEDS: HYDROcodone/APAP 5/325MG 1 TAB TABLET PO PRN (12:01)
--- NOTE | 2021-11-16 12:40 | DS ---
DATE OF DISCHARGE: 11/16/2021 ADMITTING DIAGNOSIS: Lower extremity pain and incontinence. DISCHARGE DIAGNOSES: Chronic lower extremity pain, chronic incontinence, chronic noncompliance, obesity, anxiety, asthma, congestive heart failure, depression, gastroesophageal reflux disease, hyperlipidemia, hypertension, hypothyroidism, hepatitis, MRSA pneumonia, urinary tract infection, hepatitis C, neuropathy, left foot wound, wrists and knee surgery, carpal tunnel surgery. HOSPITAL COURSE: The patient is a pleasant elderly female who we admitted twice in the past couple of weeks. She was discharged a week or so ago and refused to go to skilled. She came to the ER 2 days ago and stated she went to skilled. We admitted her, did some physical therapy, occupational therapy and wound care, consulted foster care social worker. The plan was to go to her skilled, but now she refuses to go to skilled again. Today, I saw her and examined her. We are going ahead and discharge. DISPOSITION: Home with home health. ACTIVITY: As tolerated. DIET: Low sodium. MEDICATIONS: Please see the MRAD. TOTAL TIME: [address]: Sergio TID: [id number]
--- NOTE | 2021-11-16 15:22 | NUR ---
[id number] patient discharged to home with family member. taken out by wheelchair
--- NOTE | 2021-11-16 15:52 | NUR ---
SW following. Discussed with RN, pt from home with family, room air, low sodium diet. Discharge order for home with home health. Pt discharged prior to SW being able to discuss. Referral faxed to [facility]. Pt frequently declines home health, or does not let them visit with her at home.
== END 2021-11-16 14:50 | disposition home or self-care (01) ==
LOC: ER 17:19 → ED HOLD 19:38 → INTOOBSV 19:38 → 4 SOUTHEST 21:19 → 4 NORTH 11-15 19:35
PROVIDERS: ADMIT Internal Medicine; ATTEND Internal Medicine
DX: L03.115 Cellulitis of right lower limb (principal); L03.116 Cellulitis of left lower limb; R32 Unspecified urinary incontinence; I11.0 Hypertensive heart disease with heart failure; I50.32 Chronic diastolic (congestive) heart failure; F41.9 Anxiety disorder, unspecified; F32.A Depression, unspecified; E03.9 Hypothyroidism, unspecified; E66.01 Morbid (severe) obesity due to excess calories; E78.00 Pure hypercholesterolemia, unspecified; E78.5 Hyperlipidemia, unspecified; G62.9 Polyneuropathy, unspecified; I87.2 Venous insufficiency (chronic) (peripheral); B19.20 Unspecified viral hepatitis C without hepatic coma; J15.212 Pneumonia due to Methicillin resistant Staphylococcus aureus; J45.909 Unspecified asthma, uncomplicated; K21.9 Gastro-esophageal reflux disease without esophagitis; N39.0 Urinary tract infection, site not specified; Z68.43 Body mass index [BMI] 50.0-59.9, adult; Z91.19 Patient's noncompliance with other medical treatment and regimen; Z91.81 History of falling; Z79.899 Other long term (current) drug therapy; Z98.890 Other specified postprocedural states; Z86.19 Personal history of other infectious and parasitic diseases
CPT/HCPCS: 36415; 80053; 81001; 83605; 83735; 85025; 87040; 87077; 87086; 87186; 94640; 94760; 96365; 96366; 97110; 97116; 97162; 97166; 97535; 99284; G0378; J3475; J7613; J7626; G0379; 99285-25

== ENCOUNTER 2021-12-05 14:54 | Inpatient (IN) | payer MEDICARE ==
[~2021-12-05] VITALS: Ht 157.5 cm; Wt 130.7 kg
[2021-12-05] MEDS ORDERED: methylPREDNISolone SOD SUCC PF 125 MG/2 ML VIAL. IV ONE (15:15)
[2021-12-05] MEDS ORDERED: IPRATRPIUM/ALBUTEROL 0.5/2.5MG 3 ML NEBU. NEB ONE (15:15)
--- NOTE | 2021-12-05 16:10 | RAD ---
EXAMINATION: XR CHEST 1V CLINICAL HISTORY: Shortness of breath. EXAM DATE/TIME: 12/05/2021 3:38 PM COMPARISON: 11/05/2021 FINDINGS: Lines, Tubes, and Devices: None. Cardiomediastinal Silhouette: Stable heart size. Lungs and Pleura: Pulmonary hypoexpansion without evidence of focal airspace consolidation or pleural effusion. Curvilinear subsegmental atelectasis and/or scarring predominantly in the right lung, mitzy lar prior study. Bones and Soft Tissues: No acute osseous abnormality. IMPRESSION: No evidence of acute cardiopulmonary abnormality or significant interval change. Electronically signed by: Cirilo Escalante DO (12/05/2021 4:08 PM) [facility]
[2021-12-05 16:14] LABS: BASO % 1 % (0-3); EOS # 0.1 x10^3/uL (0.0-0.7); EOS % 2 % (0-3); HEMOGLOBIN 11.2 g/dL (12.0-15.5); LYMPH # 1.2 x10^3/uL (1.0-4.8); LYMPH % 21 % (24-48); MEAN CORPUSCULAR HEMOGLOBIN 30 pg (25-35); MEAN CORPUSCULAR HGB CONC 32 g/dL (31-37); MEAN CORPUSCULAR VOLUME 94 fL (79-100); MONO # 0.4 x10^3/uL (0.0-1.1); MONO % 7 % (0-9); NEUT # 4.1 x10^3/uL (1.8-7.7); NEUT % 69 % (31-73); PLATELET COUNT 157 x10^3/uL (140-400); RED BLOOD COUNT 3.72 x10^6/uL (3.50-5.40); RED CELL DISTRIBUTION WIDTH 16.4 % (11.5-14.5); WHITE BLOOD COUNT 5.9 x10^3/uL (4.0-11.0)
[2021-12-05 16:27] LABS: CALCIUM 9.3 mg/dL (8.5-10.1); CREATININE 1.4 mg/dL (0.6-1.0); GFR 37.3; POTASSIUM 4.5 mmol/L (3.5-5.1)
--- NOTE | 2021-12-05 16:31 | PHYS DOC ---
Past Medical History Past Medical History: Anxiety, Asthma, CHF, Depression, GERD, High Cholesterol, Hypertension, Hypothyroid, Hepatitis, MRSA, Pneumonia, UTI, Other Additional Past Medical Histor: HCV,periph neurop,L FOOT WOUND, Past Surgical History: Other Additional Past Surgical Histo: wrist,knee scope,rt carpqal tunnel Smoking Status: Never Smoker Alcohol Use: None Drug Use: None General Adult EDM: Chief Complaint: SHORTNESS OF BREATH HPI: HPI: Patient is a 71-year-old female that presents today via [facility] with shortness of breath and cough for 2 days. Patient states that she weaned herself off of her oxygen for which she is chronically to be on for her COPD, she said that she has been short of breath for last 2 days and her son had called 911, EMS states that upon arrival they found that the patient's oxygenation level was 86%, they placed the patient on 2 L per nasal cannula, and transported her to the hospital. Patient does have a past medical history of coronary artery disease, CHF, COPD with oxygen dependency, and failure to thrive. Patient states that she has been taking her medications as prescribed which has been a problem in the past, she states that she gets herself to the bathroom and that her son helps when he is not at work. Patient does state that she has had increased frequency in urination but she states she has been taking her diuretics as directed and that could be the cause of that. Patient denies chest pain and fever, she does state that she has had a cough which she has had white sputum production. Review of Systems: Review of Systems: Constitutional: Denies fever or chills. [] Eyes: Denies change in visual acuity. [] HENT: Denies nasal congestion or sore throat. [] Respiratory: cough or shortness of breath. [] Cardiovascular: Denies chest pain or edema. [] GI: Denies abdominal pain, nausea, vomiting, bloody stools or diarrhea. [] : Denies dysuria. [] Musculoskeletal: Denies back pain or joint pain. [] Integument: Denies rash. [] Neurologic: Denies headache, focal weakness or sensory changes. [] Endocrine: Denies polyuria or polydipsia. [] Lymphatic: Denies swollen glands. [] Psychiatric: Denies depression or anxiety. [] Heart Score: C/O Chest Pain: No Risk Factors: Risk Factors: DM, Current or recent (<one month) smoker, HTN, HLP, family history of CAD, obesity. Risk Scores: Score 0 - 3: 2.5% MACE over next 6 weeks - Discharge Home Score 4 - 6: 20.3% MACE over next 6 weeks - Admit for Clinical Observation Score 7 - 10: 72.7% MACE over next 6 weeks - Early Invasive Strategies Current Medications: Current Medications Medications (Trade) Dose Ordered Sig/Doris Start Time Stop Time Status Last Admin Dose Admin Albuterol/ Ipratropium (Duoneb) 3 ml 1X ONCE 12/05/21 15:15 12/05/21 15:16 DC 12/05/21 15:20 3 ML Methylprednisolone Sodium Succinate (SOLU-Medrol 125MG VIAL) 125 mg 1X ONCE 12/05/21 15:15 12/05/21 15:16 DC Allergies: Allergies: Allergies Coded Allergies Type Severity Reaction Last Updated Verified amoxicillin trihydrate Allergy Intermediate 11/14/21 Yes celecoxib Allergy Intermediate 11/14/21 Yes potassium clavulanate Allergy Intermediate 11/14/21 Yes I S O L A T I O N *CONTACT* Allergy Unknown 11/14/21 Yes Physical Exam: PE: Constitutional: Elderly unkept female in mild distress nontoxic in appearance HENT: Normocephalic, atraumatic, bilateral external ears normal, oropharynx moist, no oral exudates, nose normal. [] Eyes: PERRLA, EOMI, conjunctiva normal, no discharge. [] Neck: Normal range of motion, no tenderness, supple, no stridor, no JVD Cardiovascular:Heart rate regular rhythm, no murmur [] Lungs & Thorax: Bilateral breath sounds diminished, productive cough with white sputum Abdomen: Bowel sounds normal, soft, no tenderness, no masses, no pulsatile masses. [] Skin: Bilateral legs skin excoriated with dryness noted, no drainage noted Back: No tenderness, no CVA tenderness. [] Extremities: Bilateral legs 3+ pitting edema noted extremely dry skin, pedal pulses are 1+ cap refill is less than 2 seconds Neurologic: Alert and oriented X 3, normal motor function, normal sensory function, no focal deficits noted. [] Psychologic: Affect normal, judgement normal, mood normal. [] Current Patient Data: Labs: Laboratory Tests Test 12/05/21 16:03 White Blood Count 5.9 x10^3/uL (4.0-11.0) Red Blood Count 3.72 x10^6/uL (3.50-5.40) Hemoglobin 11.2 g/dL (12.0-15.5) L Hematocrit 35.0 % (36.0-47.0) L Mean Corpuscular Volume 94 fL (79-100) Mean Corpuscular Hemoglobin 30 pg (25-35) Mean Corpuscular Hemoglobin Concent 32 g/dL (31-37) Red Cell Distribution Width 16.4 % (11.5-14.5) H Platelet Count 157 x10^3/uL (140-400) Neutrophils (%) (Auto) 69 % (31-73) Lymphocytes (%) (Auto) 21 % (24-48) L Monocytes (%) (Auto) 7 % (0-9) Eosinophils (%) (Auto) 2 % (0-3) Basophils (%) (Auto) 1 % (0-3) Neutrophils # (Auto) 4.1 x10^3/uL (1.8-7.7) Lymphocytes # (Auto) 1.2 x10^3/uL (1.0-4.8) Monocytes # (Auto) 0.4 x10^3/uL (0.0-1.1) Eosinophils # (Auto) 0.1 x10^3/uL (0.0-0.7) Basophils # (Auto) 0.0 x10^3/uL (0.0-0.2) Laboratory Tests 12/05/21 16:03 Vital Signs: Vital Signs Date Time Temp Pulse Resp B/P (MAP) Pulse Ox O2 Delivery O2 Flow Rate FiO2 12/05/21 18:15 97.8 83 22 139/66 (90) 91 Nasal Cannula 3.0 97.8 12/05/21 17:34 97.8 81 29 145/66 (92) 93 Nasal Cannula 4.0 97.8 12/05/21 16:35 97.8 92 29 137/67 (90) 93 Nasal Cannula 4.0 97.8 12/05/21 15:33 97.8 94 26 127/70 (89) 96 Nasal Cannula 4.0 97.8 12/05/21 15:20 96 Nasal Cannula 4.0 12/05/21 15:02 97.8 97 29 147/78 (101) 93 Nasal Cannula 2.0 97.8 12/05/21 14:54 97.8 96 32 147/80 (102) 86 Nasal Cannula 2.0 97.8 Vital Signs Date Time Temp Pulse Resp B/P (MAP) Pulse Ox O2 Delivery O2 Flow Rate FiO2 12/05/21 15:20 96 Nasal Cannula 4.0 12/05/21 14:54 97.8 96 32 147/80 (102) 97.8 EKG: EKG: EKG done at [address] Gonzalez at 1510 sinus arrhythmia at a rate of 93 with a [place] interval of 202 ms with a QTC of 480 ms no STEMI [] Radiology/Procedures: Radiology/Procedures: CLINICAL HISTORY: Shortness of breath. EXAM DATE/TIME: 12/05/2021 3:38 PM COMPARISON: 11/05/2021 FINDINGS: Lines, Tubes, and Devices: None. Cardiomediastinal Silhouette: Stable heart size. Lungs and Pleura: Pulmonary hypoexpansion without evidence of focal airspace consolidation or pleural effusion. Curvilinear subsegmental atelectasis and/or scarring predominantly in the right lung, similar prior study. Bones and Soft Tissues: No acute osseous abnormality. IMPRESSION: No evidence of acute cardiopulmonary abnormality or significant interval change. Electronically signed by: Cirilo Escalante DO (12/05/2021 4:08 PM) [facility] [] Course & Med Decision Making: Course & Med Decision Making Pertinent Labs and Imaging studies reviewed. (See chart for details) [address] Feliciano who has accepted this patient for admission, he recommends that the patient be placed on telemetry. Dragon Disclaimer: Dragon Disclaimer: This electronic medical record was generated, in whole or in part, using a voice recognition dictation system. Departure Departure Impression: Primary Impression: CHF exacerbation Qualified Codes: I50.9 - Heart failure, unspecified Additional Impression: COPD exacerbation Disposition: ADMITTED INPATIENT Admitting Physician: DULCE MARIA Condition: STABLE Referrals: NO PCP (PCP) MATT ARREDONDO APRN Dec 05, 2021 16:31
[2021-12-05 16:33] LABS: ALBUMIN 3.3 g/dL (3.4-5.0); ALBUMIN/GLOBULIN RATIO 0.6 (1.0-1.7); TOTAL BILIRUBIN 0.8 mg/dL (0.2-1.0); TOTAL PROTEIN 8.8 g/dL (6.4-8.2)
[2021-12-05 16:35] LABS: PROTHROMBIN TIME PATIENT 14.8 SEC (11.7-14.0)
[2021-12-05 17:00] LABS: INFLUENZA A PATIENT NEGATIVE (NEGATIVE); INFLUENZA B PATIENT NEGATIVE (NEGATIVE)
[2021-12-05] MEDS ORDERED: ACETAMINOPHEN 325 MG TABLET. PO PRN (17:00)
[2021-12-05] MEDS ORDERED: ELECTROLYTE (NON-ICU) PROTOCOL. MC PRN (17:00)
[2021-12-05] MEDS ORDERED: oxyCODONE/APAP 5/325 1 TAB TABLET PO PRN (17:00)
[2021-12-05] MEDS ORDERED: ONDANSETRON PF 4 MG/2 ML VIAL. IVP PRN (17:00)
[2021-12-05 17:39] LABS: BILIRUBIN,URINE NEGATIVE (NEG); CLARITY,URINE CLEAR; COLOR,URINE YELLOW; NITRITE,URINE POSITIVE (NEG); PH,URINE 5.5 (<5.0-8.0); PROTEIN,URINE 100 mg/dL (NEG-TRACE); UROBILINOGEN,URINE 0.2 mg/dL (0.2 mg/dL)
[2021-12-05 17:41] LABS: BACTERIA,URINE MANY /HPF (0-FEW); HYALINE CASTS, URINE OCCASIONAL /HPF
[2021-12-05] MEDS ORDERED: cefTRIAXone IM 1 GM VIAL IM ONE (18:00)
[2021-12-05 18:15] VITALS: BP 139/66
[2021-12-05] MEDS ORDERED: ERTAPENEM 1 GM in IV NORMAL SALINE 50ML 50 ML IV SCH (18:15)
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
--- NOTE | 2021-12-05 19:04 | EKG ---
[facility] [address] [place] [address] Test Date: 2021-12-05 Test Time: 15:08:10 Pat Name: PILLO JEROME Department: Room: Gender: F Software Developer: : [id number] Requested By: MATT ARREDONDO Order Number: [id number] Reading MD: Measurements Intervals [place] Rate: 93 P: 133 [place]: 202 QRS: 19 QRSD: 90 T: 31 QT: 384 QTc: 480 Interpretive Statements SUPRAVENTRICULAR RHYTHM T ABNORMALITY IN ANTEROSEPTAL LEADS PROLONGED QT ABNORMAL ECG RI6.02 No previous ECG available for comparison
[2021-12-05] MEDS: oxyCODONE/APAP 5/325 1 TAB TABLET PO PRN (19:56)
[2021-12-05] MEDS ORDERED: ALBUTEROL SULFATE 2.5 MG/3 ML NEBU. NEB SCH (20:00)
[2021-12-05] MEDS ORDERED: BUDESONIDE 0.5 MG/2 ML NEBU. NEB SCH (20:00)
[2021-12-05] MEDS: CALCIUM CARBONATE 500 MG TAB.CHEW PO PRN (20:37)
[2021-12-05] MEDS: PRAMIPEXOLE 1 MG TABLET. PO SCH ×2 (21:00→21:13)
[2021-12-05] MEDS ORDERED: NON FORMULARY ITEM (Budesonide/Formoterol Fumarate (Symbicort 160-4.5 Mcg Inhaler) 2 PUFF) IH SCH (21:00)
[2021-12-05] MEDS: FAMOTIDINE 20 MG TABLET. PO SCH (21:11)
[2021-12-05] MEDS: SENNOSIDES/DOCUSATE 8.6/50MG TABLET. PO SCH (21:11)
[2021-12-05] MEDS: GABAPENTIN 400 MG CAPSULE. PO SCH (21:12)
[2021-12-05] MEDS: HEPARIN for SUB-Q USE 5,000 UNIT/ML VIAL. SQ SCH (21:14)
[2021-12-05] MEDS: ALPRAZolam 0.5 MG TABLET PO PRN (21:48)
[2021-12-05] MEDS: NYSTATIN TOPICAL POWDER 15GM BOTTLE. TP SCH (22:36)
[2021-12-05 23:00] VITALS: BP 129/72
[2021-12-06] MEDS ORDERED: FUROSEMIDE 40 MG TABLET. PO ONE
[2021-12-06] MEDS ORDERED: FUROSEMIDE 40 MG TABLET. PO SCH
[2021-12-06 02:45] VITALS: BP 134/69
[2021-12-06] MEDS: LEVOTHYROXINE 100 MCG TABLET PO SCH (06:20)
[2021-12-06] MEDS: HEPARIN for SUB-Q USE 5,000 UNIT/ML VIAL. SQ SCH ×3 (06:29→22:43)
[2021-12-06 07:00] VITALS: BP 134/75
[2021-12-06] MEDS: LOSARTAN POTASSIUM 50 MG TABLET. PO SCH (10:05)
[2021-12-06] MEDS: SENNOSIDES/DOCUSATE 8.6/50MG TABLET. PO SCH ×2 (10:05→20:35)
[2021-12-06] MEDS: GABAPENTIN 400 MG CAPSULE. PO SCH ×3 (10:05→20:34)
[2021-12-06] MEDS: CITALOPRAM 20 MG TABLET. PO SCH (10:06)
[2021-12-06] MEDS: FAMOTIDINE 20 MG TABLET. PO SCH ×2 (10:07→20:34)
[2021-12-06] MEDS: predniSONE 20 MG TABLET PO SCH (10:07)
[2021-12-06] MEDS: NYSTATIN TOPICAL POWDER 15GM BOTTLE. TP SCH ×2 (10:08→20:35)
[2021-12-06] MEDS: ASPIRIN CHEWABLE 81 MG TABLET. PO SCH (10:08)
[2021-12-06] MEDS: FUROSEMIDE 40 MG TABLET. PO SCH (10:08)
[2021-12-06] MEDS: METOPROLOL SUCC 24HR ER 100 MG TAB.ER.24H. PO SCH (10:08)
[2021-12-06] MEDS: FLUTICASONE/VILANTEROL 100/25 INHALER. INH SCH (10:09)
[2021-12-06] MEDS: ALPRAZolam 0.5 MG TABLET PO PRN ×2 (10:27→22:50)
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
[2021-12-06 11:00] VITALS: BP 126/57
--- NOTE | 2021-12-06 11:07 | NUR ---
SS following for discharge planning. SS reviewed pt chart and discussed with pt RN. Pt is from home and is currently requiring oxygen at three liters nasal canula. COVID19 pending. Pt has home oxygen. Pt on IV Levaquin. Urology and wound care consulted. PT/OT ordered. SS will continue to follow for discharge planning.
[2021-12-06] MEDS: LACTOBACILLUS RHAMNOSUS GG 1 CAPSULE. PO SCH ×2 (13:50→20:34)
[2021-12-06 15:00] VITALS: BP 113/86
--- NOTE | 2021-12-06 15:45 | PDOC2 ---
UROLOGY CONSULT Date of Service DATE: 12/06/21 TIME: 15:36 Reason for Consult Reason for Consult: incontinence Identification/Chief Complaint Chief Complaint shortness of breath History of Present Illness Reason for Visit: 71yo female admitted for COPD exacerbation, also noted to have UTI. Urology consulted for urinary incontinence. She states this has been ongoing for the st several years, multiple times a day. Thinks it has been worse lately. Endorses urinary frequency and nocturia as well. Takes tolterodine 4mg qd, but doesn't think it helps much. Denies hematuria, dysuria. She uses purewick in hospital. No bladder scan. Also c/o recurrent UTIs. Has never seen a urologist. No hx urologic surgery. Past Medical History Cardiovascular: CHF, HTN, Hyperlipidemia Pulmonary: Asthma, Pneumonia, Other CENTRAL NERVOUS SYSTEM: Periperal neuropathy GI: GERD Heme/Onc: Anemia NOS Hepatobiliary: Hep A/B/C Psych: Anxiety, Depression, Panic Musculoskeletal: low back pain Renal/: UTI, Other Endocrine: Hypothyroidism Past Surgical History Past Surgical History: , Hysterectomy, Other Family History Family History: Coronary Artery Disease, Diabetes Social History ALCOHOL: none Drugs: None Lives: with Family Domestic Violence: Neg Current Medications Current Medications Current Medications Acetaminophen (Tylenol) 650 mg PRN Q6HRS PRN PO Headaches, Temp > 101.5F; Start 12/05/21 at 17:00 Albuterol Sulfate (Ventolin Neb Soln) 2.5 mg RTQID NEB ; Start 12/05/21 at 20:00; Stop 12/06/21 at 00:03; Status DC Alprazolam (Xanax) 0.5 mg PRN TID PRN PO ANXIETY / AGITATION Last administered on 12/06/21at 10:27; Start 12/05/21 at 18:30 Aspirin (Aspirin Chewable) 81 mg DAILY PO Last administered on 12/06/21at 10:08; Start 12/06/21 at 09:00 Budesonide (Pulmicort) 0.5 mg RTBID NEB ; Start 12/05/21 at 20:00; Stop 12/06/21 at 00:03; Status DC Calcium Carbonate/ Glycine (Tums) 500 mg PRN Q3HRS PRN PO UPSET STOMACH Last administered on 12/05/21at 20:37; Start 12/05/21 at 17:00 Ceftriaxone Sodium (Rocephin Im) 1 gm 1X ONCE IM ; Start 12/05/21 at 18:00; Stop 12/05/21 at 18:01; Status Cancel Citalopram Hydrobromide (CeleXA) 40 mg DAILY PO Last administered on 12/06/21at 10:06; Start 12/06/21 at 09:00 Ertapenem 1 gm/ Sodium Chloride 50 ml @ 100 mls/hr DAILY IV ; Start 12/05/21 at 18:15; Status UNV Famotidine (Pepcid) 20 mg BID PO Last administered on 12/06/21at 10:07; Start 12/05/21 at 21:00 Fluticasone/ Vilanterol (Breo Ellipta 100-25 Mcg) 1 puff DAILY INH Last administered on 12/06/21at 10:09; Start 12/06/21 at 09:00 Furosemide (Lasix) 40 mg 1X ONCE PO Last administered on 12/06/21at 00:16; Start 12/06/21 at 00:00; Stop 12/06/21 at 00:01; Status DC Furosemide (Lasix) 40 mg DAILY PO ; Start 12/06/21 at 00:00; Status Cancel Furosemide (Lasix) 40 mg DAILY PO Last administered on 12/06/21at 10:08; Start 12/06/21 at 09:00 Gabapentin (Neurontin) 800 mg TID PO Last administered on 12/06/21at 13:50; Start 12/05/21 at 21:00 Heparin Sodium (Porcine) (Heparin Sodium) 5,000 unit Q8HRS SQ Last administered on 12/06/21at 13:54; Start 12/05/21 at 22:00 Info (Non-Icu Electrolyte Protocol) 1 ea PRN DAILY PRN MC SEE COMMENTS; Start 12/05/21 at 17:00 Lactobacillus Rhamnosus (Culturelle) 1 cap BID PO Last administered on 12/06/21at 13:50; Start 12/06/21 at 13:00 Levofloxacin/ Dextrose 150 ml @ 100 mls/hr Q24H IV Last administered on 12/05/21at 19:56; Start 12/05/21 at 20:00 Levothyroxine Sodium (Synthroid) 200 mcg DAILY06 PO Last administered on 12/06/21at 06:20; Start 12/06/21 at 06:00 Losartan Potassium (Cozaar) 100 mg DAILY PO Last administered on 12/06/21at 10:05; Start 12/06/21 at 09:00 Metoprolol Succinate (Toprol Xl) 100 mg DAILY PO Last administered on 12/06/21at 10:08; Start 12/06/21 at 09:00 Non-Formulary Medication (Budesonide/ Formoterol Fumarate (Symbicort 160-4.5 Mcg Inhaler)) 2 puff BID IH ; Start 12/05/21 at 21:00; Status UNV Nystatin (Nystop) 1 soham BID TP Last administered on 12/06/21at 10:08; Start 12/05/21 at 22:00 Ondansetron HCl (Zofran) 4 mg PRN Q6HRS PRN IVP NAUSEA/VOMITING; Start 12/05/21 at 17:00 Oxycodone/ Acetaminophen (Percocet 5/325) 1 tab PRN Q4HRS PRN PO MILD PAIN, 1ST CHOICE Last administered on 12/05/21at 19:56; Start 12/05/21 at 17:00 Oxycodone/ Acetaminophen (Percocet 5/325) 2 tab PRN Q4HRS PRN PO MODERATE PAIN, SEVERE PAIN; Start 12/05/21 at 17:00 Pramipexole Dihydrochloride (miraPEX) 1 mg HS PO ; Start 12/05/21 at 21:00 Prednisone (Prednisone) 40 mg DAILY PO Last administered on 12/06/21at 10:07; Start 12/06/21 at 09:00 Senna/Docusate Sodium (Senna Plus) 1 tab BID PO Last administered on 12/06/21at 10:05; Start 12/05/21 at 21:00 Allergies Allergies: Coded Allergies: amoxicillin trihydrate (Verified Allergy, Intermediate, 11/14/21) HAS TOLERATED CTX celecoxib (Verified Allergy, Intermediate, 11/14/21) potassium clavulanate (Verified Allergy, Intermediate, 11/14/21) I S O L A T I O N *CONTACT* (Verified Allergy, Unknown, 11/14/21) mrsa + ROS Review Of Systems: CONSTITUTIONAL: No fever or chills EYES: No recent changes SKIN: No rash or itching CARDIOVASCULAR: No chest pain, syncope, palpitations, or edema RESPIRATORY: +sob GASTROINTESTINAL: No nausea, vomiting or abdominal pain NEUROLOGICAL: No headaches or weakness ENDOCRINE: No cold or heat intolerance GENITOURINARY: No urgency or frequency of urination MUSCULOSKELETAL: No back pain or joint pain LYMPHATICS: No enlarged lymph nodes PSYCHIATRIC: No anxiety or depression Physical Exam Physical Exam: General: Pleasant, no acute distress, well groomed Eyes: conjunctiva anicteric, eyes full range of motion ENT: moist oral mucosa, normal dentition Neck: Trachea midline, no masses Respiratory: mildly labored breathing on O2 per mask Cardiovascular: Regular rate and rhythm, Abdomen: nontender, nondistended, no hepatosplenomegaly, no masses Skin: no rashes or skin lesions on visualized skin Psych: normal mood, affect. Alert and oriented x 3. Vitals VITALS Vital Signs Date Time Temp Pulse Resp B/P (MAP) Pulse Ox O2 Delivery O2 Flow Rate FiO2 12/06/21 10:08 61 134/75 12/06/21 07:00 97.5 20 93 Nasal Cannula 3.0 97.5 Labs Labs Laboratory Tests Test 12/05/21 16:03 12/05/21 16:33 12/05/21 17:14 12/06/21 01:18 White Blood Count 5.9 x10^3/uL (4.0-11.0) Red Blood Count 3.72 x10^6/uL (3.50-5.40) Hemoglobin 11.2 g/dL (12.0-15.5) Hematocrit 35.0 % (36.0-47.0) Mean Corpuscular Volume 94 fL (79-100) Mean Corpuscular Hemoglobin 30 pg (25-35) Mean Corpuscular Hemoglobin Concent 32 g/dL (31-37) Red Cell Distribution Width 16.4 % (11.5-14.5) Platelet Count 157 x10^3/uL (140-400) Neutrophils (%) (Auto) 69 % (31-73) Lymphocytes (%) (Auto) 21 % (24-48) Monocytes (%) (Auto) 7 % (0-9) Eosinophils (%) (Auto) 2 % (0-3) Basophils (%) (Auto) 1 % (0-3) Neutrophils # (Auto) 4.1 x10^3/uL (1.8-7.7) Lymphocytes # (Auto) 1.2 x10^3/uL (1.0-4.8) Monocytes # (Auto) 0.4 x10^3/uL (0.0-1.1) Eosinophils # (Auto) 0.1 x10^3/uL (0.0-0.7) Basophils # (Auto) 0.0 x10^3/uL (0.0-0.2) Prothrombin Time 14.8 SEC (11.7-14.0) Prothromb Time International Ratio 1.2 (0.8-1.1) Activated Partial Thromboplast Time 26 SEC (24-38) Sodium Level 141 mmol/L (136-145) Potassium Level 4.5 mmol/L (3.5-5.1) Chloride Level 102 mmol/L (98-107) Carbon Dioxide Level 29 mmol/L (21-32) Anion Gap 10 (6-14) Blood Urea Nitrogen 22 mg/dL (7-20) Creatinine 1.4 mg/dL (0.6-1.0) Estimated GFR (Cockcroft-Gault) 37.3 BUN/Creatinine Ratio 16 (6-20) Glucose Level 101 mg/dL (70-99) Lactic Acid Level 1.3 mmol/L (0.4-2.0) Calcium Level 9.3 mg/dL (8.5-10.1) Total Bilirubin 0.8 mg/dL (0.2-1.0) Aspartate Amino Transf (AST/SGOT) 17 U/L (15-37) Alanine Aminotransferase (ALT/SGPT) 18 U/L (14-59) Alkaline Phosphatase 134 U/L (46-116) Troponin I High Sensitivity 19 ng/L (4-50) AF-Rgw-Q-Type Natriuretic Peptide 7332 pg/mL (0-124) Total Protein 8.8 g/dL (6.4-8.2) Albumin 3.3 g/dL (3.4-5.0) Albumin/Globulin Ratio 0.6 (1.0-1.7) Coronavirus (COVID-19)(PCR) Not detected (NOT DETECTD) Influenza Type A Antigen Negative (NEGATIVE) Influenza Type B Antigen Negative (NEGATIVE) SARS-CoV-2 Antigen (Rapid) Negative (NEGATIVE) Urine Collection Type U cath Urine Color Yellow Urine Clarity Clear Urine pH 5.5 (<5.0-8.0) Urine Specific [place] 1.020 (1.000-1.030) Urine Protein 100 mg/dL (NEG-TRACE) Urine Glucose (UA) Negative mg/dL (NEG) Urine Ketones (Stick) Negative mg/dL (NEG) Urine Blood Large (NEG) Urine Nitrite Positive (NEG) Urine Bilirubin Negative (NEG) Urine Urobilinogen Dipstick 0.2 mg/dL (0.2 mg/dL) Urine Leukocyte Esterase Negative (NEG) Urine RBC 1-2 /HPF (0-2) Urine WBC 1-4 /HPF (0-4) Urine Squamous Epithelial Cells Few /LPF Urine Bacteria Many /HPF (0-FEW) Urine Cellular Casts Occ /HPF Urine Hyaline Casts Occasional /HPF Glucose (Fingerstick) 163 mg/dL (70-99) Test 12/06/21 07:42 12/06/21 11:38 Glucose (Fingerstick) 150 mg/dL (70-99) 138 mg/dL (70-99) Laboratory Tests Test 12/05/21 16:03 12/05/21 16:33 12/05/21 17:14 12/06/21 01:18 White Blood Count 5.9 x10^3/uL (4.0-11.0) Red Blood Count 3.72 x10^6/uL (3.50-5.40) Hemoglobin 11.2 g/dL (12.0-15.5) Hematocrit 35.0 % (36.0-47.0) Mean Corpuscular Volume 94 fL (79-100) Mean Corpuscular Hemoglobin 30 pg (25-35) Mean Corpuscular Hemoglobin Concent 32 g/dL (31-37) Red Cell Distribution Width 16.4 % (11.5-14.5) Platelet Count 157 x10^3/uL (140-400) Neutrophils (%) (Auto) 69 % (31-73) Lymphocytes (%) (Auto) 21 % (24-48) Monocytes (%) (Auto) 7 % (0-9) Eosinophils (%) (Auto) 2 % (0-3) Basophils (%) (Auto) 1 % (0-3) Neutrophils # (Auto) 4.1 x10^3/uL (1.8-7.7) Lymphocytes # (Auto) 1.2 x10^3/uL (1.0-4.8) Monocytes # (Auto) 0.4 x10^3/uL (0.0-1.1) Eosinophils # (Auto) 0.1 x10^3/uL (0.0-0.7) Basophils # (Auto) 0.0 x10^3/uL (0.0-0.2) Prothrombin Time 14.8 SEC (11.7-14.0) Prothromb Time International Ratio 1.2 (0.8-1.1) Activated Partial Thromboplast Time 26 SEC (24-38) Sodium Level 141 mmol/L (136-145) Potassium Level 4.5 mmol/L (3.5-5.1) Chloride Level 102 mmol/L (98-107) Carbon Dioxide Level 29 mmol/L (21-32) Anion Gap 10 (6-14) Blood Urea Nitrogen 22 mg/dL (7-20) Creatinine 1.4 mg/dL (0.6-1.0) Estimated GFR (Cockcroft-Gault) 37.3 BUN/Creatinine Ratio 16 (6-20) Glucose Level 101 mg/dL (70-99) Lactic Acid Level 1.3 mmol/L (0.4-2.0) Calcium Level 9.3 mg/dL (8.5-10.1) Total Bilirubin 0.8 mg/dL (0.2-1.0) Aspartate Amino Transf (AST/SGOT) 17 U/L (15-37) Alanine Aminotransferase (ALT/SGPT) 18 U/L (14-59) Alkaline Phosphatase 134 U/L (46-116) Troponin I High Sensitivity 19 ng/L (4-50) AE-Ibd-C-Type Natriuretic Peptide 7332 pg/mL (0-124) Total Protein 8.8 g/dL (6.4-8.2) Albumin 3.3 g/dL (3.4-5.0) Albumin/Globulin Ratio 0.6 (1.0-1.7) Coronavirus (COVID-19)(PCR) Not detected (NOT DETECTD) Influenza Type A Antigen Negative (NEGATIVE) Influenza Type B Antigen Negative (NEGATIVE) SARS-CoV-2 Antigen (Rapid) Negative (NEGATIVE) Urine Collection Type U cath Urine Color Yellow Urine Clarity Clear Urine pH 5.5 (<5.0-8.0) Urine Specific [place] 1.020 (1.000-1.030) Urine Protein 100 mg/dL (NEG-TRACE) Urine Glucose (UA) Negative mg/dL (NEG) Urine Ketones (Stick) Negative mg/dL (NEG) Urine Blood Large (NEG) Urine Nitrite Positive (NEG) Urine Bilirubin Negative (NEG) Urine Urobilinogen Dipstick 0.2 mg/dL (0.2 mg/dL) Urine Leukocyte Esterase Negative (NEG) Urine RBC 1-2 /HPF (0-2) Urine WBC 1-4 /HPF (0-4) Urine Squamous Epithelial Cells Few /LPF Urine Bacteria Many /HPF (0-FEW) Urine Cellular Casts Occ /HPF Urine Hyaline Casts Occasional /HPF Glucose (Fingerstick) 163 mg/dL (70-99) Test 12/06/21 07:42 12/06/21 11:38 Glucose (Fingerstick) 150 mg/dL (70-99) 138 mg/dL (70-99) Assessment/Plan Assessment/Plan Chronic urinary urge incontinence Check PVR No improvement with tolterodine. Can try gemtesa outpatient--not on hospital formulary. Also discussed bladder botox injections. Recurrent UTIs Recommend increase water intake, cranberry, probiotic, d-mannose. Check PVR as above. Can consider prophylactic abx, vaginal estrogen cream if problem continues. F/u in 2-3 weeks after hospital discharge. Will sign off, please call if questions. MARGE VILLA Dec 06, 2021 15:45
[2021-12-06] MEDS: oxyCODONE/APAP 5/325 1 TAB TABLET PO PRN (17:51)
[2021-12-06 19:00] VITALS: BP 140/74
[2021-12-06] MEDS: PRAMIPEXOLE 1 MG TABLET. PO SCH (20:35)
[2021-12-06 23:00] VITALS: BP 125/78
[2021-12-07 03:00] VITALS: BP 118/83
[2021-12-07] MEDS: LEVOTHYROXINE 100 MCG TABLET PO SCH (05:46)
[2021-12-07] MEDS: HEPARIN for SUB-Q USE 5,000 UNIT/ML VIAL. SQ SCH ×3 (05:52→22:58)
[2021-12-07 07:00] VITALS: BP 118/67
[2021-12-07] MEDS ORDERED: TOLT4CAP PO (07:26)
[2021-12-07] MEDS: FLUTICASONE/VILANTEROL 100/25 INHALER. INH SCH (09:00)
[2021-12-07] MEDS: predniSONE 20 MG TABLET PO SCH (09:05)
[2021-12-07] MEDS: FUROSEMIDE 40 MG TABLET. PO SCH (09:05)
[2021-12-07] MEDS: FAMOTIDINE 20 MG TABLET. PO SCH ×2 (09:05→20:52)
[2021-12-07] MEDS: LACTOBACILLUS RHAMNOSUS GG 1 CAPSULE. PO SCH ×2 (09:05→20:53)
[2021-12-07] MEDS: ASPIRIN CHEWABLE 81 MG TABLET. PO SCH (09:06)
[2021-12-07] MEDS: METOPROLOL SUCC 24HR ER 100 MG TAB.ER.24H. PO SCH (09:06)
[2021-12-07] MEDS: LOSARTAN POTASSIUM 50 MG TABLET. PO SCH (09:06)
[2021-12-07] MEDS: SENNOSIDES/DOCUSATE 8.6/50MG TABLET. PO SCH ×2 (09:06→20:53)
[2021-12-07] MEDS: GABAPENTIN 400 MG CAPSULE. PO SCH ×3 (09:07→20:52)
[2021-12-07] MEDS: CITALOPRAM 20 MG TABLET. PO SCH (09:07)
[2021-12-07] MEDS: NYSTATIN TOPICAL POWDER 15GM BOTTLE. TP SCH ×2 (09:07→20:54)
[2021-12-07 11:00] VITALS: BP 120/65
--- NOTE | 2021-12-07 13:02 | NUR ---
SW following. Discussed with RN, pt from home, 3L, regular diet, COVID-19 negative. Therapy recommending SNF. JUAN CARLOS met with pt, wanted [facility], however JUAN CARLOS explained this is out of network with pt's insurance. Pt does not want [facility], would like [facility]. JUAN CARLOS phoned and faxed referral. Awaiting acceptance decision and insurance auth. JUAN CARLOS will continue to follow. Addendum: 12/07/21 at 1448 by LINNEA RANGEL Pt accepted at [facility] pending insurance auth.
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
[2021-12-07 15:00] VITALS: BP 111/70
[2021-12-07 19:00] VITALS: BP 128/70
[2021-12-07] MEDS: PRAMIPEXOLE 1 MG TABLET. PO SCH (20:53)
[2021-12-07] MEDS: ALPRAZolam 0.5 MG TABLET PO PRN (20:53)
[2021-12-07] MEDS: oxyCODONE/APAP 5/325 1 TAB TABLET PO PRN (21:04)
[2021-12-07 23:00] VITALS: BP 130/67
[2021-12-08 04:47] VITALS: BP 131/80
[2021-12-08] MEDS: LEVOTHYROXINE 100 MCG TABLET PO SCH (06:16)
[2021-12-08] MEDS: HEPARIN for SUB-Q USE 5,000 UNIT/ML VIAL. SQ SCH ×3 (06:17→21:16)
[2021-12-08 07:00] VITALS: BP 115/64
[2021-12-08 07:47] LABS: CALCIUM 8.4 mg/dL (8.5-10.1); CREATININE 1.3 mg/dL (0.6-1.0); GFR 40.6; POTASSIUM 4.1 mmol/L (3.5-5.1)
[2021-12-08] MEDS: SENNOSIDES/DOCUSATE 8.6/50MG TABLET. PO SCH ×2 (09:00→21:02)
[2021-12-08] MEDS: METOPROLOL SUCC 24HR ER 100 MG TAB.ER.24H. PO SCH (09:39)
[2021-12-08] MEDS: predniSONE 20 MG TABLET PO SCH (09:39)
[2021-12-08] MEDS: CITALOPRAM 20 MG TABLET. PO SCH (09:39)
[2021-12-08] MEDS: ASPIRIN CHEWABLE 81 MG TABLET. PO SCH (09:39)
[2021-12-08] MEDS: FAMOTIDINE 20 MG TABLET. PO SCH ×2 (09:39→21:02)
[2021-12-08] MEDS: LACTOBACILLUS RHAMNOSUS GG 1 CAPSULE. PO SCH ×2 (09:40→21:02)
[2021-12-08] MEDS: FUROSEMIDE 40 MG TABLET. PO SCH (09:40)
[2021-12-08] MEDS: LOSARTAN POTASSIUM 50 MG TABLET. PO SCH (09:40)
[2021-12-08] MEDS: GABAPENTIN 400 MG CAPSULE. PO SCH ×3 (09:40→21:02)
[2021-12-08] MEDS: FLUTICASONE/VILANTEROL 100/25 INHALER. INH SCH (09:42)
[2021-12-08] MEDS: NYSTATIN TOPICAL POWDER 15GM BOTTLE. TP SCH ×2 (09:43→21:00)
[2021-12-08 11:00] VITALS: BP 115/70
--- NOTE | 2021-12-08 11:35 | NUR ---
JUAN CARLOS following. Discussed with RN, insurance approved transfer to [facility]. RN and Dr. Arriola notified, awaiting discharge orders to fax. [facility] arranged wheelchair transport for 1400. JUAN CARLOS will continue to follow. Addendum: 12/08/21 at 1234 by LINNEA RANGEL Discharge orders faxed to [facility] Addendum: 12/08/21 at 1447 by LINNEA RANGEL Discharge cancelled due to pt's oxygen requirements increasing. [facility] notified. Pt added to weekend discharge list, please call Reanna at [facility] (ph: [phone]) if pt is ready to discharge over the weekend.
[2021-12-08] MEDS ORDERED: IPRATRPIUM/ALBUTEROL 0.5/2.5MG 3 ML NEBU. NEB PRN (11:45)
[2021-12-08] MEDS ORDERED: IPRATRPIUM/ALBUTEROL 0.5/2.5MG 3 ML NEBU. NEB ONE (11:45)
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
[2021-12-08] MEDS ORDERED: LEVO750T5 PO (11:58)
--- NOTE | 2021-12-08 12:14 | SNU/HH DC ---
DISCHARGE ORDERS DISCHARGE INFORMATION: DISCHARGE DATE: Dec 08, 2021 FINAL DIAGNOSIS Problems Medical Problems: (1) CHF exacerbation Status: Acute (2) COPD exacerbation Status: Acute CONDITION ON DISCHARGE: Stable CODE STATUS: Code Status: Full CHCF: SNF STAY <30 DAYS: Yes POST DISCHARGE ORDERS: ACTIVITY ORDERS: Activity as tolerated WEIGHT BEARING STATUS: As tolerated DIET AFTER DISCHARGE: Cardiac WOUND/INCISION CARE: Keep wound/cast CDI, Other, see below CHECKS AFTER DISCHARGE: CHECKS AFTER DISCHARGE: Check blood press - daily, Check blood sugar, ac/hs, Check your Temp as needed, Weigh Yourself Daily TREATMENT/EQUIPMENT ORDERS: ADAPTIVE EQUIPMENT NEEDED: Commode RESPIRATORY EQUIPMENT NEEDED: Oxygen Physical Therapy For: Evalulation/Treatment Occupational Therapy For: Evaluation/Treatment DISCHARGE MEDICATIONS: Home Meds Active Scripts Levofloxacin (LEVOFLOXACIN) 750 Mg Tablet, 1 TAB PO DAILY for UTI, #3 TAB Prov:JUANA VENTURA MD 12/08/21 Thiamine Hcl (THIAMINE HCL) 500 Mg Tablet, 500 MG PO DAILY for chf for 30 Days, #30 TAB 2 Refills Prov:MIKE MASON MD 11/08/21 Hydrocodone/Acetaminophen (Hydrocodone-Acetamin 5-325 mg) 1 Each Tablet, 1 EACH PO Q6HRS for 14 Days, #20 TAB Prov:ISABEL LOPEZ DO 11/14/20 Acetaminophen (TYLENOL) 325 Mg Tablet, 650 MG PO PRN Q4HRS PRN for TEMP OVER 100.4F for 30 Days, #120 TAB Prov:EULALIA MILLS MD 08/31/20 Magnesium Oxide (Magnesium Oxide) 400 Mg Tablet, 400 MG PO BIDAC for Hypomagnesemia for 30 Days, #60 TAB Prov:EULALIA MILLS MD 08/31/20 Alprazolam (ALPRAZOLAM) 0.5 Mg Tablet, 0.5 MG PO PRN TID PRN for ANXIETY / AGITATION for 6 Days, #15 TAB Prov:EULALIA MILLS MD 08/31/20 Reported Medications Tolterodine Tartrate (DETROL LA) 4 Mg Cap.er.24h, 1 CAP PO DAILY for urinary incontinence, #90 CAP 1 Refill 12/07/21 Losartan Potassium (LOSARTAN POTASSIUM) 100 Mg Tablet, 100 MG PO DAILY for HYPERTENSION, TAB 10/31/21 Levothyroxine Sodium (SYNTHROID) 200 Mcg Tablet, 200 MCG PO DAILYAC for THYROID SUPPLEMENT, #30 TAB 0 Refills 10/31/21 Pramipexole Di-Hcl (MIRAPEX) 1 Mg Tablet, 1 MG PO HS for restless leg, TAB 09/23/20 Gabapentin (GABAPENTIN) 800 Mg Tablet, 800 MG PO TID for NEUROGENIC PAIN, TAB 09/23/20 Ferrous Sulfate (FERROUS SULFATE) 325 Mg Tablet, 1 TAB PO DAILY for anemia, #30 TAB 3 Refills 09/23/20 Furosemide (FUROSEMIDE) 40 Mg Tablet, 1 TAB PO DAILY for diuretic, #30 TAB 5 Refills 09/23/20 Docusate Sodium (COLACE) 100 Mg Capsule, 1 CAP PO DAILY for Constipation for 15 Days, #15 CAP 0 Refills 08/08/19 Aspirin (ASPIRIN) 81 Mg Tab.chew, 81 MG PO DAILY for Heart Health, TAB.CHEW 08/08/19 Famotidine (FAMOTIDINE) 20 Mg Tablet, 20 MG PO BID for GERD, TAB 08/08/19 Budesonide/Formoterol Fumarate (SYMBICORT 160-4.5 MCG INHALER) 10.2 Gm Hfa.aer.ad, 2 PUFF IH BID 10/03/13 Citalopram Hydrobromide (CITALOPRAM HBR) 40 Mg Tablet, 40 MG PO DAILY 10/03/13 Metoprolol Succinate (METOPROLOL SUCCINATE ( XL )) 100 Mg Tab.er.24h, 100 MG PO DAILY 10/03/13 JUANA VENTURA MD Dec 08, 2021 12:14
[2021-12-08] MEDS: CALCIUM CARBONATE 500 MG TAB.CHEW PO PRN ×2 (14:25→22:50)
[2021-12-08 15:00] VITALS: BP 131/65
[2021-12-08] MEDS ORDERED: ALBUTEROL SULFATE 2.5 MG/3 ML NEBU. NEB PRN (16:00)
[2021-12-08] MEDS: IPRATRPIUM/ALBUTEROL 0.5/2.5MG 3 ML NEBU. NEB SCH ×2 (16:00→20:00)
[2021-12-08] MEDS: oxyCODONE/APAP 5/325 1 TAB TABLET PO PRN ×2 (16:44→22:59)
--- NOTE | 2021-12-08 18:17 | RAD ---
Exam: Chest one view INDICATION: Hypoxia TECHNIQUE: Frontal view of the chest Comparisons: 12/05/2021 FINDINGS: The cardiomediastinal silhouette and pulmonary vessels are within normal limits. The lung and pleural spaces are clear. IMPRESSION: No acute cardiopulmonary process. Electronically signed by: Tray Tavera MD (12/08/2021 6:15 PM) TRE
[2021-12-08 19:00] VITALS: BP 132/70
[2021-12-08] MEDS: ALPRAZolam 0.5 MG TABLET PO PRN (21:02)
[2021-12-08] MEDS: PRAMIPEXOLE 1 MG TABLET. PO SCH (21:02)
[2021-12-08] MEDS: methylPREDNISolone SOD SUCC PF 125 MG/2 ML VIAL. IV SCH (21:03)
[2021-12-08 23:00] VITALS: BP 128/77
[2021-12-09 03:16] VITALS: BP 116/58
[2021-12-09 04:54] LABS: BASO % 0 % (0-3); EOS % 0 % (0-3); HEMATOCRIT 34.8 % (36.0-47.0); HEMOGLOBIN 10.9 g/dL (12.0-15.5); LYMPH # 0.7 x10^3/uL (1.0-4.8); LYMPH % 9 % (24-48); MEAN CORPUSCULAR HEMOGLOBIN 30 pg (25-35); MEAN CORPUSCULAR HGB CONC 31 g/dL (31-37); MEAN CORPUSCULAR VOLUME 95 fL (79-100); MONO # 0.1 x10^3/uL (0.0-1.1); MONO % 1 % (0-9); NEUT # 7.1 x10^3/uL (1.8-7.7); NEUT % 89 % (31-73); PLATELET COUNT 119 x10^3/uL (140-400); RED BLOOD COUNT 3.66 x10^6/uL (3.50-5.40); RED CELL DISTRIBUTION WIDTH 15.9 % (11.5-14.5)
[2021-12-09 05:08] LABS: C-REACTIVE PROTEIN 11.6 mg/L (0-3.3); CALCIUM 8.3 mg/dL (8.5-10.1); CREATININE 1.3 mg/dL (0.6-1.0); GFR 40.6; POTASSIUM 4.8 mmol/L (3.5-5.1)
[2021-12-09] MEDS: LEVOTHYROXINE 100 MCG TABLET PO SCH (06:15)
[2021-12-09] MEDS: HEPARIN for SUB-Q USE 5,000 UNIT/ML VIAL. SQ SCH ×2 (06:15→13:34)
[2021-12-09] MEDS: methylPREDNISolone SOD SUCC PF 125 MG/2 ML VIAL. IV SCH (06:17)
[2021-12-09] MEDS: oxyCODONE/APAP 5/325 1 TAB TABLET PO PRN (06:47)
[2021-12-09 07:00] VITALS: BP 103/71
--- NOTE | 2021-12-09 07:41 | CONS ---
DATE OF CONSULTATION: 12/09/2021 REASON FOR CONSULTATION: I was asked to see this 71-year-old lady for acute on chronic respiratory failure. HISTORY OF PRESENT ILLNESS: She presented to the Emergency Room on 12/05 via EMS for shortness of breath. She has had cough. She has had lower extremity edema. She has COPD, is on oxygen 2 liters via nasal cannula continuously. She has sleep apnea, but does not use her CPAP. She was about to be discharged, but she required oxygen. She is currently on 15 liters nonrebreather mask with saturation of 98%. She is not in distress. PAST MEDICAL HISTORY: Chronic respiratory failure, COPD, CHF, hypertension, obstructive sleep apnea-hypopnea syndrome, hypercholesterolemia, hypothyroidism, MRSA colonization. ALLERGIES: AMOXICILLIN, CELECOXIB, POTASSIUM CLAVULANATE. MEDICATIONS: Currently, she is on Solu-Medrol 125 mg b.i.d., DuoNeb q.i.d., Breo, Lasix 40 mg p.o. daily, Cozaar, Celexa, Toprol-XL, aspirin, Synthroid, heparin 5000 units subcutaneous q.8 hours, Levaquin, Xanax. SOCIAL HISTORY: Positive for smoking. FAMILY HISTORY: Hypertension. REVIEW OF SYSTEMS: As mentioned as above, other systems otherwise negative. PHYSICAL EXAMINATION: GENERAL: This is a morbidly obese lady. Her BMI is 52.7. VITAL SIGNS: Her O2 saturation on 15 liters of oxygen 98%, respiratory rate 16, heart rate 55, blood pressure 116/58, temperature 97.5. HEENT: Normocephalic, atraumatic. Pupils equal, round, reactive to light. There is shallow oropharynx. Nose is clear. NECK: There is no lymphadenopathy or thyromegaly. CARDIOVASCULAR: Regular rate and rhythm. Distant heart sounds. CHEST: Inspection is normal. LUNGS: There are bibasilar crackles. ABDOMEN: Soft and obese. Bowel sounds are good. There is no mass. EXTREMITIES: There is edema, redness. NEUROLOGIC: Alert and oriented. LYMPHATICS: There is no lymphadenopathy. LABORATORY DATA: I reviewed the following lab data: Chest x-ray shows cardiomegaly. Her WBC 8, hemoglobin 10.9, platelets 119. Sodium 135, potassium 4.8, chloride 100, CO2 of 29, BUN 27, creatinine 1.3. BNP on admission was 7332. Troponin 19, which is within normal limit. Lactic acid 1.3. IMPRESSION: 1. Acute on chronic hypoxemic respiratory failure secondary to acute exacerbation of chronic obstructive pulmonary disease, acute diastolic congestive heart failure, rule out thromboembolic disease. 2. Abnormal chest x-ray. 3. Obstructive sleep apnea-hypopnea syndrome, not using CPAP. 4. Hypertension. 5. Hypothyroidism. 6. Lower extremity edema, cellulitis, rule out deep venous thrombosis. 7. Morbid obesity. PLAN AND RECOMMENDATIONS: 1. Titrate FiO2 to keep O2 saturation 90%. 2. I will do lower extremity venous Doppler. 3. I will do D-dimer. 4. She may require a CT angiogram. 5. Continue antibiotic. 6. Continue steroid. 7. I have discussed obstructive sleep apnea-hypopnea syndrome. The importance of treatment if untreated increased cardiovascular and [employer] morbidity or mortality. I have advised her to use her CPAP during sleep. 8. Continue bronchodilator. 9. The findings and recommendations were discussed with RN and the patient. I have answered all of the patient's questions. Thank you very much for allowing me to participate in care of this very nice lady. RYANN DR: Sherice TID: [id number]
[2021-12-09] MEDS: IPRATRPIUM/ALBUTEROL 0.5/2.5MG 3 ML NEBU. NEB SCH ×3 (07:52→15:15)
--- NOTE | 2021-12-09 08:28 | RAD ---
EXAMINATION: US BILATERAL LOWEREXTREMITY VENOUS DOPPLER, 12/09/2021 7:16 AM CLINICAL INDICATION: Lower extremity edema COMPARISON: DVT ultrasound 11/01/2021 PROCEDURE: Multiple grayscale, color Doppler and spectral Doppler sonographic images of the bilateral lower extremities were obtained. FINDINGS: The exam is limited due to body habitus. There is no definite evidence of deep venous throm bosis in either lower extremity. The bilateral common femoral, femoral and popliteal veins are echolu cent with normal flow on color Doppler imaging. The veins appear to be compressible and show normal p hasicity and reaction to augmentation. The posterior tibial veins are patent. The peroneal veins are not visualized, which may be due to body habitus. There is a Aquino's cyst in the right popliteal fossa measuring 6 x 2 x 2 cm. IMPRESSION: Technically limited exam due to body habitus. No definite evidence of deep venous thrombo sis in either lower extremity. Electronically signed by: Eliza Beaulieu MD (12/09/2021 8:25 AM) [id number]
[2021-12-09] MEDS: SENNOSIDES/DOCUSATE 8.6/50MG TABLET. PO SCH (08:53)
[2021-12-09] MEDS: FAMOTIDINE 20 MG TABLET. PO SCH (08:53)
[2021-12-09] MEDS: ASPIRIN CHEWABLE 81 MG TABLET. PO SCH (08:53)
[2021-12-09] MEDS: GABAPENTIN 400 MG CAPSULE. PO SCH ×2 (08:53→13:32)
[2021-12-09] MEDS: CITALOPRAM 20 MG TABLET. PO SCH (08:53)
[2021-12-09] MEDS: FUROSEMIDE 40 MG TABLET. PO SCH (08:54)
[2021-12-09] MEDS: LACTOBACILLUS RHAMNOSUS GG 1 CAPSULE. PO SCH (08:54)
[2021-12-09] MEDS: METOPROLOL SUCC 24HR ER 100 MG TAB.ER.24H. PO SCH (08:54)
[2021-12-09] MEDS: FLUTICASONE/VILANTEROL 100/25 INHALER. INH SCH (09:00)
[2021-12-09] MEDS: NYSTATIN TOPICAL POWDER 15GM BOTTLE. TP SCH (09:00)
[2021-12-09] MEDS: LOSARTAN POTASSIUM 50 MG TABLET. PO SCH (09:00)
[2021-12-09] MEDS: ALPRAZolam 0.5 MG TABLET PO PRN (10:19)
[2021-12-09 11:16] VITALS: BP 121/68
[2021-12-09 14:45] VITALS: BP 109/53
[2021-12-10] MEDS ORDERED: predniSONE 20 MG TABLET PO SCH (09:00)
== END 2021-12-09 16:15 | DRG 871 ==
LOC: ER 14:54 → 5 NORTH 17:00
PROVIDERS: ADMIT Student in an Organized Health Care Education/Training Program; ATTEND Student in an Organized Health Care Education/Training Program
DX: A41.9 Sepsis, unspecified organism (principal); J96.21 Acute and chronic respiratory failure with hypoxia; I50.33 Acute on chronic diastolic (congestive) heart failure; J44.1 Chronic obstructive pulmonary disease with (acute) exacerbation; N39.0 Urinary tract infection, site not specified; Z68.43 Body mass index [BMI] 50.0-59.9, adult; L03.119 Cellulitis of unspecified part of limb; I11.0 Hypertensive heart disease with heart failure; K21.9 Gastro-esophageal reflux disease without esophagitis; E78.00 Pure hypercholesterolemia, unspecified; B96.1 Klebsiella pneumoniae [K. pneumoniae] as the cause of diseases classified elsewhere; Z79.82 Long term (current) use of aspirin; F41.9 Anxiety disorder, unspecified; J45.909 Unspecified asthma, uncomplicated; F32.A Depression, unspecified; E03.9 Hypothyroidism, unspecified; Z88.8 Allergy status to other drugs, medicaments and biological substances; E78.5 Hyperlipidemia, unspecified; Z86.19 Personal history of other infectious and parasitic diseases; Z90.710 Acquired absence of both cervix and uterus; Z98.891 History of uterine scar from previous surgery; Z83.3 Family history of diabetes mellitus; Z82.49 Family history of ischemic heart disease and other diseases of the circulatory system; N39.41 Urge incontinence; Z87.440 Personal history of urinary (tract) infections; Z88.0 Allergy status to penicillin; Z88.1 Allergy status to other antibiotic agents; E66.01 Morbid (severe) obesity due to excess calories; F17.200 Nicotine dependence, unspecified, uncomplicated; I25.10 Atherosclerotic heart disease of native coronary artery without angina pectoris; Z99.81 Dependence on supplemental oxygen; Z79.51 Long term (current) use of inhaled steroids; Z79.890 Hormone replacement therapy; Z79.899 Other long term (current) drug therapy; R62.7 Adult failure to thrive
CPT/HCPCS: 36415; 71045; 80048; 80053; 81001; 82962; 83605; 83880; 84484; 85025; 85379; 85610; 85730; 86140; 87077; 87086; 87186; 87428; 93005; 93970; 94640; 96374; J1644; J1956; J2930; J7512; U0003; 97110-GP; 97116-GP; 97530-GO; 97530-GP; 97535-GO; 99285-25; G0378